=== PATIENT | female | born 1950 | race Caucasian/White ===

== ENCOUNTER 2016-12-09 07:32 | Day surgery (SDC) | payer OTHER, BC ==
[2016-12-08 10:55] VITALS: BMI 24.5
[~2016-12-09 07:32] MED LIST: ACETAMINOPHEN 325 MG TABLET (FP) PO PRN; CIPROFLOXACIN HCL 0.3% OPHTH 2.5ML BOTTLE OP SCH; CYCLOPENTOLATE HCL 1% OPHTH SOLN 2 ML BOTTLE OP SCH; FLURBIPROFEN 0.03% OPHTH SOLN 2.5 ML BOTTLE OP SCH; PHENYLEPHRINE 2.5% OPHTH SOLN 15 ML BOTTLE OP SCH; TROPICAMIDE 1% OPHTH SOLN 15 ML BOTTLE OP SCH
[2016-12-09] MEDS ORDERED: LIDOCAINE HCL 2% JELLY (5 ML/TUBE) ONE (07:36)
[2016-12-09] MEDS ORDERED: EPINEPHrine/PF 1 MG/1 ML (1:1,000) AMPULE ONE (07:36)
[2016-12-09] MEDS ORDERED: LIDOCAINE HCL/PF 1% SDV 5ML VIAL ONE (07:37)
[2016-12-09] MEDS ORDERED: PHENYLEPHRINE 2.5% OPHTH SOLN 15 ML BOTTLE ONE (07:51)
[2016-12-09] MEDS ORDERED: TROPICAMIDE 1% OPHTH SOLN 15 ML BOTTLE ONE (07:51)
[2016-12-09] MEDS ORDERED: CYCLOPENTOLATE HCL 1% OPHTH SOLN 2 ML BOTTLE ONE (07:51)
[2016-12-09] MEDS ORDERED: CIPROFLOXACIN 0.3% EYE DROPS 5 ML BOTTLE ONE (07:51)
[2016-12-09 08:02] VITALS: TEMP 98.1
[2016-12-09] MEDS ORDERED: PHENYLEPHRINE 2.5% OPHTH SOLN 15 ML BOTTLE OD ONE ×3 (08:05→08:15)
[2016-12-09] MEDS ORDERED: CYCLOPENTOLATE HCL 1% OPHTH SOLN 2 ML BOTTLE OD ONE ×3 (08:05→08:15)
[2016-12-09] MEDS ORDERED: TROPICAMIDE 1% OPHTH SOLN 15 ML BOTTLE OD ONE ×3 (08:05→08:15)
[2016-12-09] MEDS ORDERED: CIPROFLOXACIN HCL 0.3% OPHTH 2.5ML BOTTLE OD ONE ×2 (08:05→08:15)
[2016-12-09] MEDS ORDERED: CIPROFLOXACIN 0.3% EYE DROPS 5 ML BOTTLE OD ONE (08:10)
[2016-12-09] MEDS ORDERED: LIDOCAINE HCL 2% JELLY (5 ML/TUBE) TP ONE (08:52)
[2016-12-09] MEDS ORDERED: MIDAZOLAM HCL 2 MG/2 ML SINGLE DOSE VIAL ONE (09:15)
[2016-12-09] MEDS ORDERED: POVIDONE-IODINE 5% OPHTHALMIC PREP 30 ML SOLUTION OD ONE (09:17)
[2016-12-09] MEDS ORDERED: LIDOCAINE HCL 1% PRESERVATIVE FREE - 30ML VIAL IO ONE (09:25)
[2016-12-09] MEDS ORDERED: BSS (NA/CA/MG/K) BALANCED SALT SOLUTION OPHTH SOLN 15 ML BOTTLE OD ONE (09:25)
[2016-12-09] MEDS ORDERED: CHONDROITIN SU A/HYALUR SOD 1 KIT IO ONE (09:25)
[2016-12-09] MEDS ORDERED: EPINEPHrine/PF 1 MG/1 ML (1:1,000) AMPULE IO ONE (09:34)
[2016-12-09] MEDS ORDERED: ACETAMINOPHEN 325 MG TABLET (FP) PO ONE (10:05)
[2016-12-09] MEDS ORDERED: ACETAMINOPHEN 325 MG TABLET (FP) ONE (10:08)
--- NOTE | 2016-12-09 10:47 | SPEC ---
DATE OF OPERATION: 12/09/2016 PREOPERATIVE DIAGNOSIS: Cataract, right eye. POSTOPERATIVE DIAGNOSIS: Cataract, right eye. OPERATION: Phacoemulsification of right cataract with posterior chamber intraocular lens implantation. The lens used [id number], 22.0 diopter power, serial No. [id number]. SURGEON: Franklin Oliva M.D. ANESTHESIA: Topical MAC. COMPLICATIONS: None. PROCEDURE: The patient was brought to the operating room and correctly identified along with the operative site and the correct intraocular lens murphy. The patient was then prepped and draped in the usual sterile fashion including 5% Betadine solution in the conjunctival sac and an eyelid drape. An eyelid speculum was then placed in the eye. A paracentesis port was created and approximately 0.5 mL of preservative free Lidocaine was then injected into the eye. Viscoelastic was then injected to inflate the anterior chamber. A temporal clear corneal wound was created. A continuous circular capsulorrhexis was performed. The nucleus was then hydro-dissected with BSS and removed with phacoemulsification. The remaining cortical material was irrigated and aspirated. Viscoelastic was injected to inflate the capsular bag and the intraocular lens was then implanted into the capsular bag. The remaining Viscoelastic was irrigated and aspirated from the eye. The IOL was noted to be well centered and completely covered by the anterior capsulorrhexis. Topical Vancomycin was placed and the eye patched and shielded. The patient was then discharged from the operating room in stable condition. All wounds were tested and found to be watertight. No suture was placed. The eye was then shielded. The patient was then discharged from the operating room in stable condition. FRANKLIN OLIVA M.D. /[id number]
[2016-12-09 10:58] VITALS: BP 118/57; PULSE 65
== END 2016-12-09 11:26 | disposition home or self-care (01) ==
LOC: JASU-SURG 07:32
PROVIDERS: ATTEND Ophthalmology
PROC: 08RJ3JZ Replacement of Right Lens with Synthetic Substitute, Percutaneous Approach (ICD-10-PCS; principal; 2016-12-09 09:00)
DX: H26.9 Unspecified cataract (principal)

== ENCOUNTER 2017-02-17 07:28 | Day surgery (SDC) | payer OTHER, BC ==
[2017-02-15 16:14] VITALS: BMI 24.5
[~2017-02-17 07:28] MED LIST changes: -CIPROFLOXACIN HCL 0.3% OPHTH 2.5ML BOTTLE OP SCH; -CYCLOPENTOLATE HCL 1% OPHTH SOLN 2 ML BOTTLE OP SCH; -FLURBIPROFEN 0.03% OPHTH SOLN 2.5 ML BOTTLE OP SCH; -PHENYLEPHRINE 2.5% OPHTH SOLN 15 ML BOTTLE OP SCH; -TROPICAMIDE 1% OPHTH SOLN 15 ML BOTTLE OP SCH
[2017-02-17] MEDS ORDERED: LIDOCAINE HCL/PF 1% SDV 5ML VIAL ONE (07:37)
[2017-02-17] MEDS ORDERED: EPINEPHrine/PF 1 MG/1 ML (1:1,000) AMPULE ONE (07:37)
[2017-02-17] MEDS ORDERED: TETRACAINE 0.5% OPHTH SOLN 2 ML BOTTLE ONE (07:37)
[2017-02-17] MEDS ORDERED: BSS (NA/CA/MG/K) BALANCED SALT SOLUTION OPHTH SOLN 15 ML BOTTLE ONE (07:37)
[2017-02-17] MEDS ORDERED: FLURBIPROFEN 0.03% OPHTH SOLN 2.5 ML BOTTLE ONE (07:46)
[2017-02-17] MEDS ORDERED: TROPICAMIDE 1% OPHTH SOLN 15 ML BOTTLE ONE (07:46)
[2017-02-17] MEDS ORDERED: CIPROFLOXACIN 0.3% EYE DROPS 5 ML BOTTLE ONE (07:46)
[2017-02-17] MEDS ORDERED: CYCLOPENTOLATE HCL 1% OPHTH SOLN 2 ML BOTTLE ONE (07:46)
[2017-02-17] MEDS ORDERED: PHENYLEPHRINE 2.5% OPHTH SOLN 15 ML BOTTLE ONE (07:46)
[2017-02-17] MEDS: FLURBIPROFEN 0.03% OPHTH SOLN 2.5 ML BOTTLE OP SCH ×3 (08:10→08:20)
[2017-02-17] MEDS: TROPICAMIDE 1% OPHTH SOLN 15 ML BOTTLE OP SCH ×3 (08:10→08:20)
[2017-02-17] MEDS: CYCLOPENTOLATE HCL 1% OPHTH SOLN 2 ML BOTTLE OP SCH ×3 (08:10→08:20)
[2017-02-17] MEDS: PHENYLEPHRINE 2.5% OPHTH SOLN 15 ML BOTTLE OP SCH ×3 (08:10→08:20)
[2017-02-17] MEDS: CIPROFLOXACIN HCL 0.3% OPHTH 2.5ML BOTTLE OP SCH ×3 (08:10→08:20)
[2017-02-17] MEDS ORDERED: MIDAZOLAM HCL 2 MG/2 ML SINGLE DOSE VIAL ONE (09:02)
[2017-02-17] MEDS ORDERED: TETRACAINE 0.5% OPHTH SOLN 2 ML BOTTLE OS ONE (09:07)
[2017-02-17] MEDS ORDERED: POVIDONE-IODINE 5% OPHTHALMIC PREP 30 ML SOLUTION OS ONE (09:09)
[2017-02-17] MEDS ORDERED: LIDOCAINE HCL 1% PRESERVATIVE FREE - 30ML VIAL IO ONE (09:14)
[2017-02-17] MEDS ORDERED: BSS (NA/CA/MG/K) BALANCED SALT SOLUTION OPHTH SOLN 15 ML BOTTLE OS ONE (09:14)
[2017-02-17] MEDS ORDERED: CHONDROITIN SU A/HYALUR SOD 1 KIT IO ONE (09:14)
[2017-02-17] MEDS ORDERED: EPINEPHrine/PF 1 MG/1 ML (1:1,000) AMPULE IO ONE (09:20)
[2017-02-17 10:33] VITALS: TEMP 97.8
[2017-02-17 10:34] VITALS: BP 149/88; PULSE 74
--- NOTE | 2017-02-18 08:59 | SPEC ---
DATE OF OPERATION: 02/17/2017 OPERATION: Phacoemulsification with posterior chamber intraocular lens implantation, left eye. Lens used [id number], 21.5 Diopter power, Serial No. [id number]. PREOPERATIVE DIAGNOSIS: Cataract, left eye. POSTOPERATIVE DIAGNOSIS: Cataract, left eye. SURGEON: Franklin Oliva M.D. ANESTHESIA: Topical MAC. COMPLICATIONS: None. PROCEDURE: The patient was brought to the operating room and correctly identified along with the operative site and the correct intraocular lens murphy. The patient was then prepped and draped in the usual sterile fashion including 5% Betadine solution in the conjunctival sac and an eyelid drape. An eyelid speculum was then placed in the eye. A paracentesis port was created and approximately 0.5 mL of preservative free Lidocaine was then injected into the eye. Viscoelastic was then injected to inflate the anterior chamber. A temporal clear corneal wound was created. A continuous circular capsulorrhexis was performed. The nucleus was then hydrodissected with BSS and removed with phacoemulsification. The remaining cortical material was irrigated and aspirated. Viscoelastic was injected to inflate the capsular bag and the intraocular lens was then implanted into the capsular bag. The remaining Viscoelastic was irrigated and aspirated from the eye. The IOL was noted to be well centered and completely covered by the anterior capsulorrhexis. Topical vancomycin was placed and the eye patched and shielded. All wounds were tested and found to be watertight. No suture was placed. The eye was then shielded. The patient was then discharged from the operating room in stable condition. FRANKLIN OLIVA M.D. HL/[id number]
== END 2017-02-17 10:25 | disposition home or self-care (01) ==
LOC: JASU-SURG 07:28
PROVIDERS: ATTEND Ophthalmology
PROC: 08RK3JZ Replacement of Left Lens with Synthetic Substitute, Percutaneous Approach (ICD-10-PCS; principal; 2017-02-17 09:00)
DX: H26.9 Unspecified cataract (principal)

== ENCOUNTER 2017-02-18 22:17 | Inpatient (IN) | payer OTHER, BC ==
--- NOTE | 2017-02-18 22:45 | PDOC ---
History of Present Illness - General Chief Complaint: Shortness of Breath Stated Complaint: SHORTNESS OF BREATH Time Seen by Provider: 02/18/17 22:44 - History of Present Illness Initial Comments: 02/19/17 01:29 66yo woman with PMH of COPD, CAD s/p 1 stent in 2007, PVD, HLD, HTN who presents with worsening sob at rest for the past 2 days in the setting of tapering her steroids. Patient reports feeling short of breath at rest and having two "breathing attacks" yesterday and one today, which describes as fast breathing and gasping for air. She used her "rescue inhaler" with no improvement. She reports being sick for the past 3 months, and approximately 1 month ago completed a course of antibiotics, but can not recall the name. Dr. Smith is her Rn Case Management, who started her on a steroid taper by 5mg q 3days ( initial dose 40mg, today she is day 2 of 3 on 25mg prednisone). Patient reports persistent chronic productive cough with dark colored sputum. Denies chest pain , chest pressure, and palpitations. No fever, chills, dysuria, or abdominal pain. Allergies: NKDA PCP: Dr. Sandoval Pulm: Dr. Smith 02/19/17 02:44 Past History - Past Medical History Allergies/Adverse Reactions: Allergies Allergy/AdvReac Type Severity Reaction Status Date / Time No Known Allergies Allergy Verified 02/15/17 16:15 Home Medications: Ambulatory Orders Albuterol Sulfate 0.5% [Ventolin 0.5% Nebulizing Soln. -] 1 neb NEB Q4H PRN 09/16 Alendronate Na [Fosamax (Weekly)] 70 mg PO DIALLO 04/14/11 Aspirin [Baby Aspirin] 81 mg PO DAILY 04/14/11 Multivitamins [Multivit ([facility] Formulary)] 1 each PO DAILY 04/14/11 Potassium Chloride [K-Dur] 10 meq PO DAILY 04/14/11 Verapamil HCl [Verelan (Do Not Stock)] 360 mg PO DAILY 04/14/11 Simvastatin [Zocor -] 40 mg PO HS 03/21/14 Metoprolol Tartrate [Lopressor -] 25 mg PO BID 03/22/14 Clopidogrel Bisulfate [Plavix -] 75 mg PO DAILY 04/04/14 Gabapentin 600 mg PO QID 04/04/14 Prednisone 10 mg PO DAILY 02/15/17 Another Inhaler-Not Sure Of Name DAILY 02/17/17 Anemia: No Asthma: No Cancer: No Cardiac Disorders: Yes (mi'08 STENT) CVA: No COPD: Yes Dementia: No Diabetes: No GI Disorders: Yes (REFLUX) Disorders: No HTN: Yes Hypercholesterolemia: Yes Liver Disease: No Seizures: No Thyroid Disease: No - Surgical History Cardiac Surgery: (STENT 2007) Orthopedic Surgery: Yes (LEFT TKR ~2009) - Suicide/Smoking/Psychosocial Hx Smoking History: Current some day smoker Have you smoked in the past 12 months: Yes Number of Cigarettes Smoked Daily: 2 'Breaking Loose' booklet given: 12/09/16 Hx Alcohol Use: No Drug/Substance Use Hx: No Substance Use Type: None Hx Substance Use Treatment: No Review of Systems - Review of Systems Constitutional: Yes: Chills, Diaphoresis, Weakness HEENTM: Yes: Cataracts (cataract surgergy yesterday). No: Throat Pain Respiratory: Yes: Cough, Shortness of Breath, SOB at Rest, Productive cough. No : Hemoptysis Cardiac (ROS): No: Edema, Lightheadedness, Palpitations, Syncope ABD/GI: No: Diarrhea : No: Dysuria Neurological: No: Headache *Physical Exam - Physical Exam General Appearance: Yes: Nourished, Appropriately Dressed, Mild Distress, Other (dyspneic when speaking) HEENT: positive: EOMI Neck: positive: Supple Respiratory/Chest: positive: Decreased Breath Sounds, Rhonchi (scattered rhonchi ) Cardiovascular: positive: Regular Rhythm, Regular Rate, S1, S2. negative: JVD Vascular Pulses: Dorsalis-Pedis (R): 2+, Doralis-Pedis (L): 2+ Gastrointestinal/Abdominal: positive: Normal Bowel Sounds, Flat, Soft. negative : Tender, Distended, Guarding Extremity: negative: Pedal Edema, Calf Tenderness Integumentary: positive: Other (bilateral venous stasis changes) Neurologic: positive: Fully Oriented, Alert Heart Score/ECG Review - ECG Impressions Comment:: 02/19/17 02:48 Sinus rhythm, rate 79bpm, with PACs LAE LBBB QTc 502 no ischemic changes ED Treatment Course - LABORATORY CBC & Chemistry Diagram: 02/19/17 00:19 02/19/17 00:19 Medical Decision Making - Medical Decision Making 02/19/17 01:41 66yo woman with PMH of COPD, CAD s/p 1 stent, HTN, HLD, PVD who presents with dyspnea at rest in the setting of steroid taper and recent illness. Differential includes, but not limited to COPD exacerbation, PNA, URI. -CBC, CMP, ABG -Mg, 2xDuo nebs, Solumedrol 125mg -CXR PA/Lateral 02/19/17 01:53 CBC, BMP 02/19/17 00:19 02/19/17 00:19 Hepatic Panel Total Bilirubin 1.0 mg/dL (0.2-1.0) D 02/19/17 00:19 AST 34 U/L (15-37) D 02/19/17 00:19 ALT 21 U/L (12-78) D 02/19/17 00:19 Alkaline Phosphatase 63 U/L (45-117) D 02/19/17 00:19 Albumin 3.1 g/dl (3.4-5.0) L 02/19/17 00:19 Patient's breathing is not improved after treatments. She remains dyspneic on 2L NC when speaking, and lung exam notable for decreased airway entry. Patient's WBC mildly elevated which could be due to steroids and/or underlying infection. Patient is afebrile, and CXR does not show any focal consolidations. Will hold off on antibiotics for now. Patient will be admitted for further treatment. *DC/Admit/Observation/Transfer Diagnosis at time of Disposition: COPD exacerbation - Discharge Dispostion Condition at time of disposition: Stable Admit: Yes - Referrals - Patient Instructions - Post Discharge Activity
--- NOTE | 2017-02-19 | PDOC ---
Attending Attestation - Resident Resident Name: Connie Armstrong - ED Attending Attestation I have performed the following: I have examined & evaluated the patient, The case was reviewed & discussed with the resident, I agree w/resident's findings & plan, Exceptions are as noted - HPI HPI: 02/19/17 00:09 Pt with h/o COPD presents with SOB and productive cough for two days. Pt had been on a steroid taper and gradually started to develope the cough. Denies fever or chest pain. Denies sick contacts - Physicial Exam PE: 02/19/17 00:11 *Physical Exam General Appearance: Yes: Appropriately Dressed. No: Apparent Distress, Intoxicated HEENT: positive: EOMI, NAHOMI, Normal ENT Inspection, Normal Voice, TMs Normal, Pharynx Normal. negative: Pale Conjunctivae, Photophobia, Scleral Icterus (R), Scleral Icterus (L) Neck: positive: Trachea midline, Normal Thyroid, Supple. negative: Tender, Rigid, Carotid bruit, Stridor, Lymphadenopathy (R), Lymphadenopathy (L), Thyromegaly Respiratory/Chest: positive: decrease BS bilaterally, occasional scattered wheeze, moderate conversational dyspnea, slight labored breathing . negative: Chest Tender, Respiratory Distress, Accessory Muscle Use, , RES, Crackles, Rales , Rhonchi, Stridor, Dullness Cardiovascular: positive: Regular Rhythm, Regular Rate, S1, S2. negative: Edema , JVD, Murmur, Bradycardia, Tachycardia Vascular Pulses: Dorsalis-Pedis (R): 2+, Doralis-Pedis (L): 2+ Gastrointestinal/Abdominal: positive: Normal Bowel Sounds, Flat, Soft. negative : Tender, Organomegaly, Pulsatile Mass, Increased Bowel Sounds, Decreased BS, Distended, Guarding, Rebound, Hernia, Hepatomegaly, Spleenomegaly Lymphatic: negative: Adenopathy, Tenderness Musculoskeletal: positive: Normal Inspection. negative: CVA Tenderness, Decreased Range of Motion Extremity: positive: Normal Capillary Refill, Normal Inspection, Normal Range of Motion, Pelvis Stable. negative: Tender, Pedal Edema, Swelling, Erythema Integumentary: positive: Normal Color, Dry, Warm. negative: Cyanotic, Erythema , Jaundice, Rash Neurologic: positive: machine baster II-XII NML intact, Fully Oriented, Alert, Normal Mood/ Affect, Motor Strength 5/5. negative: EOM Palsy, Facial Droop, Sensory Deficit 02/19/17 01:31 - Medical Decision Making 02/19/17 01:34 Pt will be admitted for further treatment
[2017-02-19] MEDS ORDERED: MAGNESIUM SULF 50% (8.12 MEQ/2 ML-1 GM VIAL) IVPB ONE (00:01)
[2017-02-19] MEDS ORDERED: ALBUTEROL SO4 2.5/IPRATROPIUM 0.5 INH SOL 3 ML VIAL.NEB. NEB ONE ×2 (00:01→00:20)
[2017-02-19] MEDS ORDERED: MAGNESIUM SULF 50% (8.12 MEQ/2 ML-1 GM VIAL) ONE (00:20)
[2017-02-19 00:33] LABS: BASO % 0.5 % (0-2.0); EOS % 0.4 % (0-4.5); HEMATOCRIT 41.3 % (32.4-45.2); HEMOGLOBIN 13.9 GM/dL (10.7-15.3); LYMPH % 10.6 % (8-40); MCH 35.6 pg (25.7-33.7); MCHC 33.6 g/dl (32.0-36.0); MEAN CELL VOLUME 105.8 fl (80-96); MEAN PLT VOLUME 9.4 fl (7.5-11.1); MONO % 6.7 % (3.8-10.2); NEUT % 81.8 % (42.8-82.8); PLATELET COUNT 215 K/MM3 (134-434); RDW 15.6 % (11.6-15.6); WHITE BLOOD COUNT 13.6 K/mm3 (4.0-10.0)
[2017-02-19 00:36] LABS: ADD RBC MORPHOLOGY YES
[2017-02-19 00:57] LABS: ALBUMIN 3.1 g/dl (3.4-5.0); ANION GAP 10 (8-16); BLOOD UREA NITROGEN 15 mg/dL (7-18); CALCIUM 8.3 mg/dL (8.5-10.1); CHLORIDE 100 mmol/L (98-107); CO2 28 mmol/L (21-32); CREATININE 0.5 mg/dL (0.55-1.02); GLUCOSE,RANDOM 108 mg/dL (74-106); SGPT/ALT 21 U/L (12-78); SODIUM 138 mmol/L (136-145)
[2017-02-19 01:00] LABS: ALK PHOS 63 U/L (45-117); TOT PROT 6.1 g/dl (6.4-8.2)
[2017-02-19 01:01] LABS: POTASSIUM 4.6 mmol/L (3.5-5.1); SGOT/AST 34 U/L (15-37)
[2017-02-19] MEDS ORDERED: methylPREDNISolone NA SUCC 125 MG/2 ML VIAL IVPB ONE (01:27)
[2017-02-19] MEDS ORDERED: methylPREDNISolone NA SUCC 125 MG/2 ML VIAL ONE (01:37)
--- NOTE | 2017-02-19 02:40 | HP ---
<Dat Casey - Last Filed: 02/19/17 04:07> CHIEF COMPLAINT: SOB PCP: Dr. Hdez HISTORY OF PRESENT ILLNESS: Patient is a 66 yo F with a PMHx, of COPD, PVD, CAD (stent in 2007), HLD, HTN, who presented today with worsening SOB that started yesterday. She had multiple breathing attacks yesterday and 1 today and decided to go to ED. The first attack started before she had her cataract surgery prior to anesthesia. She says she has been sick for 3 months and completed a course of antibiotics 1 month ago but does not remember the name. 3 weeks ago she was started on Predisone and currently being tapered down. She is currently day 2 of 3 of 25mg. Patient states she has a persistent productive cough with yellow sputum but today she noticed it was chris in color. She also stated she also has chest pressure since the SOB started. Patient denies dizziness, chest pain, nausea, vomiting, lightheadedness, palpitations, abdominal pain, urinary symptoms. ER course was notable for: (1) RR 26, O2 Sat 93 (2) Magnesium, Duonebs, 125mg Solu-Medrol Recent Travel: N/A PAST MEDICAL HISTORY: L knee replacement (around 10 years ago), L cataract surgery (02/21) PAST SURGICAL HISTORY: s/p left cataract surgery Social History: Smokin/2 pack a day Alcohol: denies Drugs: denies Family History: Allergies No Known Allergies Allergy (Verified 02/15/17 16:15) HOME MEDICATIONS: Home Medications Medication Instructions Recorded Albuterol Sulfate 0.5% [Ventolin 1 neb NEB Q4H PRN 04/14/11 0.5% Nebulizing Soln. -] Alendronate Na [Fosamax (Weekly)] 70 mg PO DIALLO 04/14/11 Aspirin [Baby Aspirin] 81 mg PO DAILY 04/14/11 Multivitamins [Multivit ([facility] 1 each PO DAILY 04/14/11 Formulary)] Potassium Chloride [K-Dur] 10 meq PO DAILY 04/14/11 Verapamil HCl [Verelan (Do Not 360 mg PO DAILY 04/14/11 Stock)] Simvastatin [Zocor -] 40 mg PO HS 03/21/14 Metoprolol Tartrate [Lopressor -] 25 mg PO BID 03/22/14 Clopidogrel Bisulfate [Plavix -] 75 mg PO DAILY 04/04/14 Gabapentin 600 mg PO QID 04/04/14 Prednisone 10 mg PO DAILY 02/15/17 Another Inhaler-Not Sure Of Name DAILY 02/17/17 REVIEW OF SYSTEMS CONSTITUTIONAL: Absent: fever, chills, diaphoresis, generalized weakness, malaise, loss of appetite, weight change HEENT: Absent: rhinorrhea, nasal congestion, throat pain, throat swelling, difficulty swallowing, mouth swelling, ear pain, eye pain, visual changes CARDIOVASCULAR: peripheral edema Absent: chest pain, syncope, palpitations, irregular heart rate, lightheadedness RESPIRATORY: cough, SOB, orthopnea, wheezing Absent: dyspnea with exertion,wheezing, stridor, hemoptysis GASTROINTESTINAL: Absent: abdominal pain, abdominal distension, nausea, vomiting, diarrhea, constipation, melena, hematochezia GENITOURINARY: Absent: dysuria, frequency, urgency, hesitancy, hematuria, flank pain, genital pain MUSCULOSKELETAL: Absent: myalgia, arthralgia, joint swelling, back pain, neck pain SKIN: Absent: rash, itching, pallor HEMATOLOGIC/IMMUNOLOGIC: Absent: easy bleeding, easy bruising, lymphadenopathy, frequent infections ENDOCRINE: Absent: unexplained weight gain, unexplained weight loss, heat intolerance, cold intolerance NEUROLOGIC: Absent: headache, focal weakness or paresthesias, dizziness, unsteady gait, seizure, mental status changes, bladder or bowel incontinence PSYCHIATRIC: Absent: anxiety, depression, suicidal or homicidal ideation, hallucinations. PHYSICAL EXAMINATION Vital Signs - 24 hr 02/18/17 02/18/17 22:25 23:10 Temperature 98.3 F Pulse Rate 98 H Respiratory 26 H Rate Blood Pressure 151/95 O2 Sat by Pulse 93 L 95 Oximetry (%) GENERAL: dypneic , tachypneic, Awake, alert, and fully oriented HEAD: Normal with no signs of trauma. EYES: Mild proptosis, extraocular movements intact, sclera anicteric, conjunctiva clear EARS, NOSE, THROAT: oropharynx clear without exudates. Moist mucous membranes. NECK: supple without lymphadenopathy, JVD, or masses. LUNGS: scattered rhonchi, no wheezing HEART: Regular rate and rhythm, no murmurs appreciated ABDOMEN: Soft, nontender, not distended, normoactive bowel sounds UPPER EXTREMITIES: 2+ pulses, warm, well-perfused. No cyanosis. No clubbing. No peripheral edema. LOWER EXTREMITIES: 2+ pulses R DP, Faint pulses left DP. no peripheral edema PSYCHIATRIC: Cooperative. Good eye contact. Appropriate mood and affect. Laboratory Results - last 24 hr 02/19/17 02/19/17 00:19 00:19 WBC 13.6 H D RBC 3.90 D Hgb 13.9 D Hct 41.3 D MCV 105.8 H MCH 35.6 H MCHC 33.6 RDW 15.6 Plt Count 215 MPV 9.4 Neutrophils % 81.8 D Lymphocytes % 10.6 Monocytes % 6.7 Eosinophils % 0.4 D Basophils % 0.5 Sodium 138 Potassium 4.6 Chloride 100 Carbon Dioxide 28 Anion Gap 10 BUN 15 D Creatinine 0.5 L Creat Clearance w eGFR > 60 Random Glucose 108 H D Calcium 8.3 L Total Bilirubin 1.0 D AST 34 D ALT 21 D Alkaline Phosphatase 63 D Total Protein 6.1 L Albumin 3.1 L ASSESSMENT/PLAN: Patient is a 66 yo F with a PMHx, of COPD, PVD, CAD (stent in 2007), HLD, HTN, who presented with worsening SOB and is found to have COPD exacerbation. #Acute COPD Exacerbation -Duonebs Q6H prn -Albuterol Q4H PRN -Pulm Consulted Dr. Smith -O2 Therapy, keep spo2>88. on oxygen 3L with 93% spo2 -SoluMedrol 40mg IV TID, taper -Symbicort 2 Puff BID -Azithromycin 500mg once -hold Prednisone -FU AM labs: CBC, CMP, Mag, Phos, cxr. -monitor vitals. #HTN/CAD/HLD -need to confirm confirm home meds -cont ASA 81mg -cont Atorvastatin 40mg PO daily - monitor vitals #FEN -No IV fluids -WNL, repeat in am -Sodium restricted diet #PPX DVt pro:Heparin SQ TID Gi pro: zantac 150mg bid. Dispo: Med-Surge Visit type - Emergency Visit Emergency Visit: Yes ED Registration Date: 02/19/17 Care time: The patient presented to the Emergency Department on the above date and was hospitalized for further evaluation of their emergent condition. - New Patient This patient is new to me today: Yes Date on this admission: 02/19/17 - Critical Care Critical Care patient: No <Blayne Ballard - Last Filed: 02/19/17 05:55> patient is seen and examined Agree with plan above. 66 year old female with history of COPD and recent exacerbation , treated with oral steroids , now presents with cough, SOB and wheezing . Her symptoms began 3 month ago and now progressed . She has been treated with oral antibiotics for upper respiratory infection . PMHx, of COPD, PVD, CAD (PCI in ), HLD, HTN LUNGS: scattered rhonchi, no wheezing HEART: Regular rate and rhythm, no murmurs appreciated ABDOMEN: Soft, nontender, not distended, CBC, BMP 02/19/17 00:19 02/19/17 00:19 No acute infiltrates on CXR A/P Acute COPD exacerbation with failure of management with outpatient oral steroids - IV steroids with slow taper over 48- 72 hrs - nebs -pulmonary evaluation
[2017-02-19] MEDS ORDERED: ALBUTEROL SO4 0.083% IH SOL 2.5 MG/3 ML VIAL.NEB. NEB PRN (02:45)
[2017-02-19] MEDS ORDERED: AZITHROMYCIN IVPB 500 MG in DEXTROSE 5%-WATER - 250 ML IVPB ONE (02:49)
[2017-02-19] MEDS ORDERED: ALBUTEROL SO4 0.5 % INH SOLN 2.5 MG/0.5 ML VIAL.NEB. NEB PRN ×2 (02:58→15:44)
--- NOTE | 2017-02-19 03:00 | MSN ---
Admitting History and Physical - Admission Chief Complaint: Dyspnea History of Present Illness: Sammi Liu is a 66 year old female with PMHx of COPD (not on home O2), CAD (s /p 1 stent in 2007), PVD (s/p 3 stents), HTN, HLD, who presents with dyspnea that began yesterday morning. Patient states she initially felt dyspneic yesterday when she was at the hospital for left cataract surgery. Patient states that she had another episode of dyspnea today afternoon when she was walking to her house from her car. Patient states she has been sick for the past 3 months with cold like symptoms. She states she has been on 2 weeks of prednisone taper. Patient reports productive cough with yellow and chris colored phlegm. Patient also reports one episode of chest pressure earlier today. She states she's not sure how long it lasted but states it doesn't radiate anywhere. Patient also reports palpitations, nausea, headache, and dizziness. Patient denies vomiting, leg swelling, LOC, history of thyroid problems, history of anxiety. Patient states that at baseline, she ambulates with a cane at home and a walker outside. ED course was notable for: 1. T: 98F, BP: 151/95, RR; 26, O2 sat: 95% on 2L of O2 via nasal cannula 2. WBC: 13.6 History Source: Patient Limitations to Obtaining History: No Limitations - Past Medical History IT ADMIN: Yes: Peripheral Neuropathy Cardiovascular: Yes: CAD, HTN, Hyperlipdemia, Other (Cardiac stents placed, history of peripheral vascular disease) Pulmonary: Yes: COPD, Other (Former smoker) - Past Surgical History Past Surgical History: Yes: Joint Replacement (left knee), Stent - Smoking History Smoking history: Current some day smoker Have you smoked in the past 12 months: Yes Aproximately how many cigarettes per day: 2 - Alcohol/Substance Use Hx Alcohol Use: No Home Medications - Allergies Allergies/Adverse Reactions: Allergies Allergy/AdvReac Type Severity Reaction Status Date / Time No Known Allergies Allergy Verified 02/15/17 16:15 - Home Medications Home Medications: Ambulatory Orders Albuterol Sulfate 0.5% [Ventolin 0.5% Nebulizing Soln. -] 1 neb NEB Q4H PRN 09/16 Alendronate Na [Fosamax (Weekly)] 70 mg PO DIALLO 04/14/11 Aspirin [Baby Aspirin] 81 mg PO DAILY 04/14/11 Multivitamins [Multivit ([facility] Formulary)] 1 each PO DAILY 04/14/11 Potassium Chloride [K-Dur] 10 meq PO DAILY 04/14/11 Verapamil HCl [Verelan (Do Not Stock)] 360 mg PO DAILY 04/14/11 Simvastatin [Zocor -] 40 mg PO HS 03/21/14 Metoprolol Tartrate [Lopressor -] 25 mg PO BID 03/22/14 Clopidogrel Bisulfate [Plavix -] 75 mg PO DAILY 04/04/14 Gabapentin 600 mg PO QID 04/04/14 Prednisone 10 mg PO DAILY 02/15/17 Another Inhaler-Not Sure Of Name DAILY 02/17/17 Review of Systems - Review of Systems Constitutional: reports: No Symptoms Eyes: reports: No Symptoms HENT: reports: Nasal Congestion, Other (rhinorrhea) Neck: reports: No Symptoms Cardiovascular: reports: Palpitations, Other (Chest pressure) Respiratory: reports: Cough, Orthopnea, SOB Gastrointestinal: reports: Nausea Genitourinary: reports: No Symptoms Neurological: reports: Dizziness, Headache Physical Examination Vital Signs: Vital Signs Temperature 98.3 F 02/18/17 22:25 Pulse Rate 98 H 02/18/17 22:25 Respiratory Rate 26 H 02/18/17 22:25 Blood Pressure 151/95 02/18/17 22:25 O2 Sat by Pulse Oximetry (%) 95 02/18/17 23:10 Constitutional: Yes: Mild Distress, Other (Dyspneic while speaking) Eyes: Yes: Conjunctiva Clear, PERRL, Other (Mild proptosis noted) HENT: Yes: Atraumatic, Normocephalic Neck: Yes: Supple, Trachea Midline Cardiovascular: Yes: Tachycardia Respiratory: Yes: On Nasal O2 (On 2L of O2 via nasal cannula), Tachypnea, Other (Bibasilar crackles) Gastrointestinal: Yes: Normal Bowel Sounds, Soft Edema: No Peripheral Pulses: Left Radial: 2+, Right Radial: 2+, Left Doralis Pedis: 0 (I was not able to palpate L DP), Right Dorsalis Pedis: 1+ Neurological: Yes: Alert, Oriented Labs: CBC, BMP 02/19/17 00:19 02/19/17 00:19 Assessment/Plan Sammi Liu is a 66 yo F with PMHx of COPD (not on home O2), CAD (s/p 1 stent in 2007), PVD (s/p 3 stents), HTN, HLD, who presented with dyspnea. Patient was admitted for acute COPD exacerbation. 1. Acute COPD exacerbation - Hold Prednisone - DuoNebs Q6H PRN - Albuterol Q4H PRN - Solu-Medrol 40mg IVPUSH TID - Symbicort 2 puffs BID - Azithromycin 500mg once - O2 therapy - Pulm on board- Dr. Smith 2. CAD - Continue ASA 81 mg 3. HTN - Reconcile home medications 4. HLD - Continue Atorvastatin 40 mg 5. DVT Proph - Heparin SQ TID Dispo: Will admit to Med-Surg.
[2017-02-19] MEDS ORDERED: AZITHROMYCIN IVPB 250 ML IVPB ONE (03:01)
[2017-02-19 05:11] VITALS: BMI 27.8
[2017-02-19 05:57] LABS: ANISOCYTOSIS 1+; MACROCYTOSIS 1+
[2017-02-19] MEDS: ALBUTEROL SO4 2.5/IPRATROPIUM 0.5 INH SOL 3 ML VIAL.NEB. NEB SCH ×3 (06:15→17:16)
--- NOTE | 2017-02-19 08:16 | PN ---
Physical Exam: SUBJECTIVE: Patient seen and examined OBJECTIVE: Vital Signs Intake & Output 02/16/17 02/17/17 02/18/17 02/19/17 23:59 23:59 23:59 23:59 Output Total 200 Balance -200 Weight 63.503 kg 64.546 kg Period Temp Pulse Resp BP Sys/Olguin Pulse Ox Last 24 Hr 98.3 F-99 F 90-104 18-26 151-166/88-95 93-97 GENERAL: The patient is awake, alert, and fully oriented, in no acute distress. HEAD: Normal with no signs of trauma. EYES: PERRL, extraocular movements intact, sclera anicteric, conjunctiva clear. No ptosis. ENT: Ears normal, nares patent, oropharynx clear without exudates, moist mucous membranes. NECK: Trachea midline, full range of motion, supple. LUNGS: Breath sounds equal, clear to auscultation bilaterally, no wheezes, no crackles, no accessory muscle use. HEART: Regular rate and rhythm, S1, S2 without murmur, rub or gallop. ABDOMEN: Soft, nontender, nondistended, normoactive bowel sounds, no guarding, no rebound, no hepatosplenomegaly, no masses. EXTREMITIES: 2+ pulses, warm, well-perfused, no edema. NEUROLOGICAL: Cranial nerves II through XII grossly intact. Normal speech, gait not observed. PSYCH: Normal mood, normal affect. SKIN: Warm, dry, normal turgor, no rashes or lesions noted Laboratory Results - last 24 hr 02/19/17 02/19/17 00:19 00:19 WBC 13.6 H D RBC 3.90 D Hgb 13.9 D Hct 41.3 D MCV 105.8 H MCH 35.6 H MCHC 33.6 RDW 15.6 Plt Count 215 MPV 9.4 Neutrophils % 81.8 D Lymphocytes % 10.6 Monocytes % 6.7 Eosinophils % 0.4 D Basophils % 0.5 Poikilocytosis Few Anisocytosis 1+ Macrocytosis 1+ Sodium 138 Potassium 4.6 Chloride 100 Carbon Dioxide 28 Anion Gap 10 BUN 15 D Creatinine 0.5 L Creat Clearance w eGFR > 60 Random Glucose 108 H D Calcium 8.3 L Total Bilirubin 1.0 D AST 34 D ALT 21 D Alkaline Phosphatase 63 D Total Protein 6.1 L Albumin 3.1 L Active Medications Generic Name Dose Route Start Last Admin Trade Name Freq PRN Reason Stop Dose Admin Albuterol Sulfate 1 amp 02/19/17 02:58 Ventolin 0.5% - NEB Q4H PRN SHORT OF BREATH/WHEEZING Albuterol/Ipratropium 1 amp 02/19/17 06:00 02/19/17 06:15 Duoneb - NEB 1 amp QIDR JULIET Administration Aspirin 81 mg 02/19/17 10:00 Asa - PO DAILY JULIET Atorvastatin Calcium 20 mg 02/19/17 22:00 Lipitor - PO HS JULIET Budesonide/Formoterol Fumarate 2 puff 02/19/17 10:00 Symbicort 80/4.5mcg - IH BID JULIET Heparin Sodium (Porcine) 5,000 unit 02/19/17 06:00 Heparin - SQ TID JULIET Azithromycin 500 mg/ Dextrose 250 mls @ 250 mls/hr 02/20/17 10:00 IVPB DAILY [facility] Methylprednisolone Sodium Succinate 40 mg 02/19/17 10:00 Solu-Medrol - IVPUSH Q8H-IV JULIET Ranitidine HCl 150 mg 02/19/17 10:00 Zantac - PO BID JULIET No micro No ekg Imaging: Bibasilar atelectasis. Blunting of CP angles BL ASSESSMENT/PLAN:
[2017-02-19 08:37] LABS: BASO % 0.2 % (0-2.0); HEMOGLOBIN 14.1 GM/dL (10.7-15.3); LYMPH % 3.7 % (8-40); MCHC 32.7 g/dl (32.0-36.0); MEAN CELL VOLUME 106.9 fl (80-96); MEAN PLT VOLUME 9.7 fl (7.5-11.1); MONO % 0.9 % (3.8-10.2); NEUT % 95.2 % (42.8-82.8); PLATELET COUNT 223 K/MM3 (134-434); RBC 4.02 M/mm3 (3.60-5.2); RDW 15.9 % (11.6-15.6); WHITE BLOOD COUNT 12.6 K/mm3 (4.0-10.0)
[2017-02-19 08:46] LABS: ALBUMIN 3.5 g/dl (3.4-5.0); ANION GAP 12 (8-16); BLOOD UREA NITROGEN 14 mg/dL (7-18); CALCIUM 9.2 mg/dL (8.5-10.1); CHLORIDE 98 mmol/L (98-107); CO2 27 mmol/L (21-32); CREATININE 0.8 mg/dL (0.55-1.02); GLUCOSE,RANDOM 143 mg/dL (74-106); MAGNESIUM 2.3 mg/dL (1.8-2.4); PHOSPHOROUS 4.4 mg/dL (2.5-4.9); SGOT/AST 27 U/L (15-37); SGPT/ALT 21 U/L (12-78); SODIUM 137 mmol/L (136-145); TOT PROT 6.9 g/dl (6.4-8.2)
[2017-02-19 08:47] LABS: ALK PHOS 69 U/L (45-117)
[2017-02-19 08:49] LABS: ADD RBC MORPHOLOGY YES
[2017-02-19 08:52] LABS: INR 0.97 (0.82-1.09)
[2017-02-19] MEDS ORDERED: PT OWN MED DRAWER 7, Y5N ONE (09:08)
[2017-02-19] MEDS: ASPIRIN 81 MG CHEWABLE TABLETS PO SCH (09:10)
[2017-02-19] MEDS: RANITIDINE HCL 150 MG TABLET (FP) PO SCH ×2 (09:10→21:48)
[2017-02-19] MEDS: methylPREDNISolone NA SUCC 40 MG/1 ML VIAL IVPUSH SCH ×2 (09:10→17:54)
[2017-02-19] MEDS: BUDESONIDE/FORMETEROL FUMARATE 80/4.5 mcg INHALER IH SCH ×2 (09:44→22:46)
[2017-02-19 11:34] LABS: ANISOCYTOSIS 1+; MACROCYTOSIS 0; PLATELET ESTIMATE NORMAL
--- NOTE | 2017-02-19 11:44 | HOSP ---
Physical Examination Vital Signs: Vital Signs Temperature 98.7 F 02/19/17 10:00 Pulse Rate 106 H 02/19/17 10:00 Respiratory Rate 22 02/19/17 10:00 Blood Pressure 142/63 02/19/17 10:00 O2 Sat by Pulse Oximetry (%) 97 02/19/17 03:30 Findings/Remarks: Subjective: The patient was seen and examined at the bedside, she reports her breathing has improved since yesterday. Current Medications Generic Name Dose Route Start Last Admin Trade Name Freq PRN Reason Stop Dose Admin Albuterol Sulfate 1 amp 02/19/17 02:58 Ventolin 0.5% - NEB Q4H PRN SHORT OF BREATH/WHEEZING Albuterol/Ipratropium 1 amp 02/19/17 06:00 02/19/17 06:15 Duoneb - NEB 1 amp QIDR JULIET Administration Aspirin 81 mg 02/19/17 10:00 02/19/17 09:10 Asa - PO 81 mg DAILY JULIET Administration Atorvastatin Calcium 20 mg 02/19/17 22:00 Lipitor - PO HS JULIET Budesonide/Formoterol Fumarate 2 puff 02/19/17 10:00 02/19/17 09:44 Symbicort 80/4.5mcg - IH Not Given BID JULIET Heparin Sodium (Porcine) 5,000 unit 02/19/17 06:00 Heparin - SQ TID JULIET Azithromycin 500 mg/ Dextrose 250 mls @ 250 mls/hr 02/20/17 10:00 IVPB DAILY JULIET Methylprednisolone Sodium Succinate 40 mg 02/19/17 10:00 02/19/17 09:10 Solu-Medrol - IVPUSH 40 mg Q8H-IV JULIET Administration Ranitidine HCl 150 mg 02/19/17 10:00 02/19/17 09:10 Zantac - PO 150 mg BID JULIET Administration Objective: Vital Signs Period Temp Pulse Resp BP Sys/Olguin Pulse Ox Last 24 Hr 98.3 F-99 F 90-106 18-26 142-166/63-95 93-97 Physical Exam: General: NAD, A&Ox3 Lungs: Decreased breath sounds bilaterally Heart: Tachycardia, S1S2 Abd: Soft, non-tender, non-distended. Normoactive bowel sounds Ext: Warm, well-perfused. 2+ DP/PT bilaterally CBCD WBC 12.6 K/mm3 (4.0-10.0) H 02/19/17 07:00 RBC 4.02 M/mm3 (3.60-5.2) 02/19/17 07:00 Hgb 14.1 GM/dL (10.7-15.3) 02/19/17 07:00 Hct 43.0 % (32.4-45.2) 02/19/17 07:00 MCV 106.9 fl (80-96) H 02/19/17 07:00 MCHC 32.7 g/dl (32.0-36.0) 02/19/17 07:00 RDW 15.9 % (11.6-15.6) H 02/19/17 07:00 Plt Count 223 K/MM3 (134-434) 02/19/17 07:00 MPV 9.7 fl (7.5-11.1) 02/19/17 07:00 CMP Sodium 137 mmol/L (136-145) 02/19/17 07:00 Potassium 4.0 mmol/L (3.5-5.1) 02/19/17 07:00 Chloride 98 mmol/L (98-107) 02/19/17 07:00 Carbon Dioxide 27 mmol/L (21-32) 02/19/17 07:00 Anion Gap 12 (8-16) 02/19/17 07:00 BUN 14 mg/dL (7-18) 02/19/17 07:00 Creatinine 0.8 mg/dL (0.55-1.02) D 02/19/17 07:00 Creat Clearance w eGFR > 60 (>60) 02/19/17 07:00 Random Glucose 143 mg/dL (74-106) H D 02/19/17 07:00 Calcium 9.2 mg/dL (8.5-10.1) 02/19/17 07:00 Total Bilirubin 1.0 mg/dL (0.2-1.0) 02/19/17 07:00 AST 27 U/L (15-37) D 02/19/17 07:00 ALT 21 U/L (12-78) 02/19/17 07:00 Alkaline Phosphatase 69 U/L (45-117) 02/19/17 07:00 Total Protein 6.9 g/dl (6.4-8.2) 02/19/17 07:00 Albumin 3.5 g/dl (3.4-5.0) 02/19/17 07:00 Assessment: This is a 66 year old female with PMHx of COPD, PVD, CAD (stent in 2007), HLD, HTN, who presented to the ED with worsening shortness of breath that began the day before coming to the ED. Plan: 1) Pulmonary: Acute COPD exacerbation - Continue Solu-medrol - Continue Duonebs - Continue Symbicort - O2 via NC prn - Continue Azithromycin - Appreciate pulmonary consult 2) Cardiology: HTN - Awaiting home medication list to verify the patient is indeed taking a bblocker at home Hyperlipidemia - Continue lipitor CAD s/p stenting 2007 - Continue ASA 3) F/E/N: - Sodium controlled diet - Monitor electrolytes 4) Prophylaxis: - OOB ambulating - Heparin 5,000u sq tid 5) Dispo: - Requires continued inpatient care CODE STATUS: FULL CODE Labs: CBC, BMP 02/19/17 07:00 02/19/17 07:00
--- NOTE | 2017-02-19 12:22 | CONSULT ---
Consultation: REQUESTING PROVIDER: CONSULT REQUEST: We have been asked to medically evaluate this patient for COPD exacerbation. HISTORY OF PRESENT ILLNESS: 66F w/ hx of COPD (not on home O2, never been hospitalized for exacerbation), PVD (b/l leg stents), CAD (stent in ), HLD, and HTN who presents with 1 day of SOB. Per pt, she developed a productive cough of thick yellow sputum in 2016. She was treated with antibiotics for a sinus infection one month ago. She was started on a prednisone taper by Dr. Smith 3 weeks ago, currently on day 2 of 3 on 25mg. Pt states that she developed a "breathing attack" one day ago on the way to the hospital for a cataract surgery. She states that it lasted for 15 minutes, and she was extremely SOB, and thought she was going to . The SOB was accompanied by chest pressure, palpitations, and wheezing. It came on spontaneously and resolved spontaneously. She denies ever having anything like this before. Then, she underwent the surgery, and had 2 more similar breathing attacks afterwards, each one worse than the prior in severity and duration, prompting her to come to the ED. Pt also endorses nausea and orthopnea, and she denies PND and LE edema. She denies a history of anxiety, and she denied feeling anxious before the episodes started. PMH: COPD (not on home O2, never been hospitalized for exacerbation), PVD (b/l leg stents), CAD (stent in ), HLD, and HTN PSH: L knee repair, L cataract surgery Allergies: NKDA Social Hx: used to smoke 1PPD since being a teenager, currently smokes a few cigarettes every other day. She denies alcohol and drug use. 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 She denies excessive smoke exposure, but endorses possible asbestosis exposure. Family Hx: father- heart disease and PAD REVIEW OF SYSTEMS: CONSTITUTIONAL: Absent: fever, chills, diaphoresis, generalized weakness, malaise, loss of appetite, weight change HEENT: Absent: rhinorrhea, nasal congestion, throat pain, throat swelling, difficulty swallowing, mouth swelling, ear pain, eye pain, visual changes present: sinus pain, nasal congestion CARDIOVASCULAR: Absent: irregular heart rate, lightheadedness, peripheral edema present: chest pressure, palpitations RESPIRATORY: Absent: stridor, hemoptysis present: cough, SOB GASTROINTESTINAL: Absent: abdominal pain, abdominal distension, vomiting, diarrhea, constipation, melena, hematochezia present: nausea GENITOURINARY: Absent: dysuria, frequency, urgency, hesitancy, hematuria, flank pain, genital pain MUSCULOSKELETAL: Absent: myalgia, arthralgia, joint swelling, back pain, neck pain SKIN: Absent: rash, itching, pallor HEMATOLOGIC/IMMUNOLOGIC: Absent: easy bleeding, easy bruising, lymphadenopathy, frequent infections ENDOCRINE: Absent: unexplained weight gain, unexplained weight loss, heat intolerance, cold intolerance NEUROLOGIC: Absent: headache, focal weakness or paresthesias, dizziness, unsteady gait, seizure, mental status changes, bladder or bowel incontinence PSYCHIATRIC: Absent: anxiety, depression, suicidal or homicidal ideation, hallucinations. PHYSICAL EXAMINATION Vital Signs - 24 hr 02/18/17 02/18/17 02/19/17 22:25 23:10 02:56 Temperature 98.3 F 99 F Pulse Rate 98 H 104 H Pulse Rate [ Apical] Respiratory 26 H 18 Rate Blood Pressure 151/95 166/94 Blood Pressure [Left Arm] O2 Sat by Pulse 93 L 95 95 Oximetry (%) 02/19/17 02/19/17 02/19/17 03:30 05:08 10:00 Temperature 98.4 F 99 F 98.7 F Pulse Rate 104 H 106 H Pulse Rate [ 90 Apical] Respiratory 20 18 22 Rate Blood Pressure 166/94 142/63 Blood Pressure 153/88 [Left Arm] O2 Sat by Pulse 97 Oximetry (%) GENERAL: elderly female, awake, alert, and fully oriented, in no acute distress. HEENT: no pharyngeal erythema NECK: Normal range of motion, supple without lymphadenopathy, JVD, or masses. LUNGS: bibasilar rales, L > R HEART: Regular rate and rhythm, normal S1 and S2 without murmur, rub or gallop. ABDOMEN: Soft, nontender, not distended, normoactive bowel sounds, no guarding, no rebound, no masses. No hepatomegaly or splenomegaly. MUSCULOSKELETAL: trace b/l LE edema NEUROLOGICAL: Cranial nerves II-XII intact. Normal speech. PSYCHIATRIC: Cooperative. Good eye contact. Appropriate mood and affect. SKIN: Warm, dry, normal turgor, no rashes or lesions noted. Laboratory Results - last 24 hr 02/19/17 02/19/17 02/19/17 00:19 00:19 07:00 WBC 13.6 H D 12.6 H RBC 3.90 D 4.02 Hgb 13.9 D 14.1 Hct 41.3 D 43.0 MCV 105.8 H 106.9 H MCH 35.6 H 35.0 H MCHC 33.6 32.7 RDW 15.6 15.9 H Plt Count 215 223 MPV 9.4 9.7 Neutrophils % 81.8 D 95.2 H Lymphocytes % 10.6 3.7 L D Monocytes % 6.7 0.9 L D Eosinophils % 0.4 D 0.0 D Basophils % 0.5 0.2 Hypochromia 0 Platelet Estimate Normal Platelet Comment Present Polychromasia 1+ Poikilocytosis Few 0 Anisocytosis 1+ 1+ Microcytosis 1+ Macrocytosis 1+ 0 PT with INR INR Sodium 138 Potassium 4.6 Chloride 100 Carbon Dioxide 28 Anion Gap 10 BUN 15 D Creatinine 0.5 L Creat Clearance w eGFR > 60 Random Glucose 108 H D Calcium 8.3 L Phosphorus Magnesium Total Bilirubin 1.0 D AST 34 D ALT 21 D Alkaline Phosphatase 63 D Total Protein 6.1 L Albumin 3.1 L TSH 02/19/17 02/19/17 02/19/17 07:00 07:00 07:00 WBC RBC Hgb Hct MCV MCH MCHC RDW Plt Count MPV Neutrophils % Lymphocytes % Monocytes % Eosinophils % Basophils % Hypochromia Platelet Estimate Platelet Comment Polychromasia Poikilocytosis Anisocytosis Microcytosis Macrocytosis PT with INR 11.00 INR 0.97 Sodium 137 Potassium 4.0 Chloride 98 Carbon Dioxide 27 Anion Gap 12 BUN 14 Creatinine 0.8 D Creat Clearance w eGFR > 60 Random Glucose 143 H D Calcium 9.2 Phosphorus 4.4 Magnesium 2.3 Total Bilirubin 1.0 AST 27 D ALT 21 Alkaline Phosphatase 69 Total Protein 6.9 Albumin 3.5 TSH 1.13 Cancelled Active Medications Generic Name Dose Route Start Last Admin Trade Name Freq PRN Reason Stop Dose Admin Albuterol Sulfate 1 amp 02/19/17 02:58 Ventolin 0.5% - NEB Q4H PRN SHORT OF BREATH/WHEEZING Albuterol/Ipratropium 1 amp 02/19/17 06:00 02/19/17 11:25 Duoneb - NEB 1 amp QIDR JULIET Administration Aspirin 81 mg 02/19/17 10:00 02/19/17 09:10 Asa - PO 81 mg DAILY JULIET Administration Atorvastatin Calcium 20 mg 02/19/17 22:00 Lipitor - PO HS JULIET Budesonide/Formoterol Fumarate 2 puff 02/19/17 10:00 02/19/17 09:44 Symbicort 80/4.5mcg - IH Not Given BID JULIET Heparin Sodium (Porcine) 5,000 unit 02/19/17 06:00 Heparin - SQ TID JULIET Azithromycin 500 mg/ Dextrose 250 mls @ 250 mls/hr 02/20/17 10:00 IVPB DAILY JULIET Methylprednisolone Sodium Succinate 40 mg 02/19/17 10:00 02/19/17 09:10 Solu-Medrol - IVPUSH 40 mg Q8H-IV JULIET Administration Ranitidine HCl 150 mg 02/19/17 10:00 02/19/17 09:10 Zantac - PO 150 mg BID JULIET Administration CXR: b/l basilar atelectasis, and blunting of costophrenic angles suggestive of pleural effusions. ASSESSMENT/PLAN: 66F w/ hx of COPD (not on home O2, never been hospitalized for exacerbation), PVD (b/l leg stents), CAD (stent in '08), HLD, and HTN who presents with 1 day of several episodes of SOB. #SOB -possibly COPD exacerbation triggered by underlying sinus infection vs. inflammation of vocal cords vs. cardiac cause -BD, standing and PRN -O2 via NC -steroids -azithromycin -recommend cardio consult -f/u BNP -if symptoms do not resolve, consider ENT consult Rest of care per medical team. Case discussed with attending, Dr. Solis. Dispo: We will continue to follow the patient. Thank you for this consultative opportunity. -Yonathan Denton MD PGY1 Pulmonology Team Visit type - Emergency Visit Emergency Visit: Yes ED Registration Date: 02/19/17 Care time: The patient presented to the Emergency Department on the above date and was hospitalized for further evaluation of their emergent condition. - New Patient This patient is new to me today: Yes Date on this admission: 02/19/17 - Critical Care Critical Care patient: No
[2017-02-19] MEDS: HEPARIN NA (PORCINE) 5,000 UNITS/ML 1ML VIAL SQ SCH ×2 (14:46→21:49)
--- NOTE | 2017-02-19 16:18 | CON.CARD ---
Consult Consult Specialty:: Cardiology Referred by:: Hospital Medicine Reason for Consultation:: CAD s/p PCI - History of Present Illness Chief Complaint: Dyspnea History of Present Illness: 66 y.o. female with h/o tobacco abuse, COPD, HTN, CAD s/p PCI (stent), hyperlipidemia, angina pectoris, s/p left knee replacement presented for worsening worsening SOB, persistent productive cough with yellow sputum, and post-tussive chest pressure since improved with appropriate treatment. Patient denies near or true syncope, chest pain, nausea, vomiting, lightheadedness, palpitations, abdominal pain, urinary symptoms. - History Source History Provided By: Patient Limitations to Obtaining History: No Limitations - Past Medical History RESPITE PROVIDER: Yes: Peripheral Neuropathy Cardio/Vascular: Yes: CAD, HTN, Hyperlipdemia, Other (Cardiac stents placed, history of peripheral vascular disease) Pulmonary: Yes: COPD, Other (Former smoker) - Past Surgical History Past Surgical History: Yes: Joint Replacement (left knee), Stent - Alcohol/Substance Use Hx Alcohol Use: No - Smoking History Smoking history: Current some day smoker Have you smoked in the past 12 months: Yes Aproximately how many cigarettes per day: 2 Home Medications - Allergies Allergies/Adverse Reactions: Allergies Allergy/AdvReac Type Severity Reaction Status Date / Time No Known Allergies Allergy Verified 02/15/17 16:15 - Home Medications Home Medications: Ambulatory Orders Bromfenac Sodium 1.7 ml OS DAILY 02/19/17 Clopidogrel Bisulfate [Plavix -] 75 mg PO DAILY 02/19/17 Furosemide [Lasix -] 40 mg PO PRN 02/19/17 Gabapentin 600 mg PO QID 02/19/17 Lisinopril [Prinivil] 10 mg PO DAILY 02/19/17 Metoprolol Tartrate 25 mg PO BID 02/19/17 Montelukast Na [Singulair -] 10 mg PO HS 02/19/17 Ofloxacin 0.3% Ophth Soln [Ocuflox -] 1 drop OS QID 02/19/17 Potassium Bicarbonate/Cit AC [Effer-K 20 Meq Tablet Eff] 20 meq PO DAILY Prednisolone 1% Ophthalmic [Pred Forte 1% -] 1 drop OS QID 02/19/17 Simvastatin 40 mg PO HS 02/19/17 Verapamil HCl ER [Calan Sr] 180 mg PO DAILY 02/19/17 Review of Systems - Review of Systems Cardiovascular: reports: Chest Pain Respiratory: reports: Cough, SOB Vital Signs: Vital Signs Temperature 97.7 F 02/19/17 14:06 Pulse Rate 103 H 02/19/17 14:06 Respiratory Rate 22 02/19/17 14:06 Blood Pressure 159/81 02/19/17 14:06 O2 Sat by Pulse Oximetry (%) 96 02/19/17 09:00 Constitutional: Yes: No Distress, Calm, Thin Neck: Yes: Supple Respiratory: Yes: Regular, Diminished, On Nasal O2 Gastrointestinal: Yes: Normal Bowel Sounds, Soft Cardiovascular: Yes: Regular Rate and Rhythm JVD: No Carotid Bruit: No Heart Sounds: Yes: S1, S2 Edema: No - Other Data Labs, Other Data: CBC, BMP 02/19/17 07:00 02/19/17 07:00 INR, PTT INR 0.97 (0.82-1.09) 02/19/17 07:00 Pending Imaging - Results Chest X-ray: Report Reviewed (Ashlynr KATT) Problem List - Problems (1) S/P coronary artery stent placement Code(s): Z95.5 - PRESENCE OF CORONARY ANGIOPLASTY IMPLANT AND GRAFT (2) COPD exacerbation Code(s): J44.1 - CHRONIC OBSTRUCTIVE PULMONARY DISEASE W (ACUTE) EXACERBATION (3) Peripheral vascular disease Code(s): I73.9 - PERIPHERAL VASCULAR DISEASE, UNSPECIFIED (4) HTN (hypertension) Code(s): I10 - ESSENTIAL (PRIMARY) HYPERTENSION Qualifiers: Hypertension type: essential hypertension Qualified Code(s): I10 - Essential (primary) hypertension (5) Hyperlipemia, mixed Code(s): E78.2 - MIXED HYPERLIPIDEMIA Assessment/Plan 03/26/2014 Echocardiogram shows normal LV size and fxn, tr MR, TR, abnormal LV compliance 1. AE COPD improving 2. 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 CAD post PCI/stent angina pectoris 4. HTN 5. Hyperlipidemia PLAN: 1. BD, O2 to maintian saO2>90%, steroid taper, empiric abx course 2. Continue ASA 81 qd and Lipitor 20 qd 3. Resume Calan SR 120 qd given bronchospasm 4. GI and DVT prophylaxis 5. F/u echocardiogram to assess RVSP Wednesday 6. Thank you for consultative opportunity
[2017-02-19] MEDS: VERAPAMIL HCL 120 MG CAP SUSTAINED RELEASE PO SCH (17:51)
[2017-02-19] MEDS ORDERED: FUROSEMIDE 40 MG TABLET (FP) PO PRN (18:30)
[2017-02-19] MEDS: GABAPENTIN 300 MG CAPSULE (FP) PO SCH (21:48)
[2017-02-19] MEDS: ATORVASTATIN CA 20 MG TABLET (FP) PO SCH (21:48)
[2017-02-19] MEDS: MONTELUKAST NA 10 MG TABLET PO SCH (21:48)
[2017-02-19] MEDS ORDERED: PATIENT'S OWN MEDICATION (NON-FORMULARY) (Simvastatin [Simvastatin] 40 MG) PO SCH (22:00)
[2017-02-20] MEDS: ALBUTEROL SO4 2.5/IPRATROPIUM 0.5 INH SOL 3 ML VIAL.NEB. NEB SCH ×2 (00:30→07:49)
[2017-02-20] MEDS: methylPREDNISolone NA SUCC 40 MG/1 ML VIAL IVPUSH SCH ×3 (02:04→17:20)
[2017-02-20] MEDS: HEPARIN NA (PORCINE) 5,000 UNITS/ML 1ML VIAL SQ SCH ×3 (05:43→22:05)
[2017-02-20 08:09] LABS: HEMATOCRIT 39.8 % (32.4-45.2); HEMOGLOBIN 12.9 GM/dL (10.7-15.3); MCH 34.6 pg (25.7-33.7); MCHC 32.5 g/dl (32.0-36.0); MEAN CELL VOLUME 106.6 fl (80-96); MEAN PLT VOLUME 9.6 fl (7.5-11.1); PLATELET COUNT 207 K/MM3 (134-434); RBC 3.73 M/mm3 (3.60-5.2); RDW 15.5 % (11.6-15.6); WHITE BLOOD COUNT 14.2 K/mm3 (4.0-10.0)
[2017-02-20 08:33] LABS: CHLORIDE 103 mmol/L (98-107); POTASSIUM 4.1 mmol/L (3.5-5.1); SODIUM 138 mmol/L (136-145)
[2017-02-20 08:51] LABS: ALBUMIN 3.2 g/dl (3.4-5.0); ALK PHOS 58 U/L (45-117); ANION GAP 11 (8-16); BILIRUBIN,TOTAL 0.6 mg/dL (0.2-1.0); BLOOD UREA NITROGEN 25 mg/dL (7-18); CALCIUM 8.9 mg/dL (8.5-10.1); CO2 24 mmol/L (21-32); CREATININE 0.7 mg/dL (0.55-1.02); GLUCOSE,RANDOM 156 mg/dL (74-106); N-TERMINAL BNP 5168.55 pg/ml (5-125); SGOT/AST 13 U/L (15-37); SGPT/ALT 17 U/L (12-78); TOT PROT 6.3 g/dl (6.4-8.2)
[2017-02-20] MEDS ORDERED: AZITHROMYCIN IVPB 500 MG in DEXTROSE 5%-WATER - 250 ML IVPB SCH (10:00)
[2017-02-20] MEDS: VERAPAMIL HCL 120 MG CAP SUSTAINED RELEASE PO SCH (10:22)
[2017-02-20] MEDS: CLOPIDOGREL BISULFATE 75 MG TABLET (FP) PO SCH (10:22)
[2017-02-20] MEDS: BUDESONIDE/FORMETEROL FUMARATE 80/4.5 mcg INHALER IH SCH (10:22)
[2017-02-20] MEDS: GABAPENTIN 300 MG CAPSULE (FP) PO SCH ×4 (10:22→22:04)
[2017-02-20] MEDS: NICOTINE 7 MG/24 HOURS TOPICAL PATCH TD SCH (10:22)
[2017-02-20] MEDS: ASPIRIN 81 MG CHEWABLE TABLETS PO SCH (10:22)
[2017-02-20] MEDS: AZITHROMYCIN IVPB 250 MG in DEXTROSE 5%-WATER - 250 ML IVPB SCH (10:23)
[2017-02-20] MEDS: RANITIDINE HCL 150 MG TABLET (FP) PO SCH ×2 (10:26→22:04)
--- NOTE | 2017-02-20 12:29 | PN ---
Progress Note, Physician Chief Complaint: Events noted Complaints of shortness of breath History of Present Illness: Patient was seen and examined. Awake and alert. Chart was reviewed Denies chest pain, but complains of SOB, cough (productive) - Current Medication List Current Medications: Active Medications Albuterol Sulfate (Ventolin 0.5% -) 1 amp NEB Q1H PRN PRN Reason: SHORT OF BREATH/WHEEZING Albuterol Sulfate (Ventolin 0.083% Nebulizer Soln -) 1 amp NEB Q4H PRN PRN Reason: SHORT OF BREATH/WHEEZING Aspirin (Asa -) 81 mg PO DAILY [facility] Last Admin: 02/20/17 10:22 Dose: 81 mg Atorvastatin Calcium (Lipitor -) 20 mg PO HS [facility] Last Admin: 02/19/17 21:48 Dose: 20 mg Budesonide/Formoterol Fumarate (Symbicort 80/4.5mcg -) 2 puff IH BID [facility] Last Admin: 02/20/17 10:22 Dose: 2 puff Clopidogrel Bisulfate (Plavix -) 75 mg PO DAILY [facility] Last Admin: 02/20/17 10:22 Dose: 75 mg Furosemide (Lasix -) 40 mg PO DAILY PRN Gabapentin (Neurontin -) 600 mg PO QID [facility] Last Admin: 02/20/17 10:22 Dose: 600 mg Heparin Sodium (Porcine) (Heparin -) 5,000 unit SQ TID [facility] Last Admin: 02/20/17 05:43 Dose: Not Given Azithromycin 250 mg/ Dextrose 250 mls @ 250 mls/hr IVPB DAILY [facility] Last Admin: 02/20/17 10:23 Dose: 250 mls/hr Methylprednisolone Sodium Succinate (Solu-Medrol -) 40 mg IVPUSH Q8H-IV [facility] Last Admin: 02/20/17 10:21 Dose: 40 mg Montelukast Sodium (Singulair -) 10 mg PO HS [facility] Last Admin: 02/19/17 21:48 Dose: 10 mg Nicotine (Nicoderm Patch -) 7 mg TD DAILY [facility] Last Admin: 02/20/17 10:22 Dose: 7 mg Ranitidine HCl (Zantac -) 150 mg PO BID [facility] Last Admin: 02/20/17 10:26 Dose: 150 mg Tiotropium [place] (Spiriva -) 1 puff IH DAILY [facility] Verapamil HCl (Calan Sr Capsule -) 120 mg PO DAILY [facility] Last Admin: 12/16/17 10:22 Dose: 120 mg - Objective Vital Signs: Vital Signs Temperature 97.6 F 02/19/17 22:00 Pulse Rate 100 H 02/19/17 22:00 Respiratory Rate 22 02/19/17 22:00 Blood Pressure 150/72 02/19/17 22:00 O2 Sat by Pulse Oximetry (%) 96 02/19/17 21:00 Constitutional: Yes: Well Nourished Eyes: Yes: PERRL HENT: Yes: Atraumatic Neck: Yes: Supple Cardiovascular: Yes: Regular Rate and Rhythm, S1, S2 Respiratory: Yes: Rhonchi (Expiratory) Gastrointestinal: Yes: Normal Bowel Sounds, Soft. No: Tenderness Edema: No Labs: CBC, BMP 02/20/17 07:15 02/20/17 07:15 Problem List - Problems (1) CAD (coronary artery disease) Code(s): I25.10 - ATHSCL HEART DISEASE OF [place] CORONARY ARTERY W/O ANG PCTRS Qualifiers: Coronary Disease-Associated Artery/Lesion type: [place] artery [place] vs. transplanted heart: [place] heart Associated angina: without angina Qualified Code(s): I25.10 - Atherosclerotic heart disease of [place] coronary artery without angina pectoris (2) COPD exacerbation Code(s): J44.1 - CHRONIC OBSTRUCTIVE PULMONARY DISEASE W (ACUTE) EXACERBATION (3) S/P coronary artery stent placement Code(s): Z95.5 - PRESENCE OF CORONARY ANGIOPLASTY IMPLANT AND GRAFT (4) Peripheral vascular disease Code(s): I73.9 - PERIPHERAL VASCULAR DISEASE, UNSPECIFIED (5) HTN (hypertension) Code(s): I10 - ESSENTIAL (PRIMARY) HYPERTENSION Qualifiers: Hypertension type: essential hypertension Qualified Code(s): I10 - Essential (primary) hypertension (6) Hyperlipemia, mixed Code(s): E78.2 - MIXED HYPERLIPIDEMIA Assessment/Plan 1. 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 CAD post PCI/stent, angina pectoris 4. HTN 5. Hyperlipidemia PLAN: 1. Bronchodilator, O2, steroid taper and empiric antibiotic coverage 2. Continue ASA 81 qd and Lipitor 20 qd 3. Resume Calan SR 120 qd as tolerated 4. GI and DVT prophylaxis 5. Follow up transthoracic echocardiography on Wednesday Further plans are to follow Artie Alvarado MD
[2017-02-20] MEDS: TIOTROPIUM BROMIDE 18 MCG/INH (DEVICE W/ 5 CAPSULES) IH SCH (12:47)
--- NOTE | 2017-02-20 13:45 | PN ---
Progress Note (short form) - Note Progress Note: Subjective: The patient was seen and examined at the bedside, she reports her breathing has improved since yesterday. Current Medications Generic Name Dose Route Start Last Admin Trade Name Freq PRN Reason Stop Dose Admin Albuterol Sulfate 1 amp 02/19/17 15:44 Ventolin 0.5% - NEB Q1H PRN SHORT OF BREATH/WHEEZING Albuterol Sulfate 1 amp 02/20/17 10:58 Ventolin 0.083% Nebulizer Soln - NEB Q4H PRN SHORT OF BREATH/WHEEZING Aspirin 81 mg 02/19/17 10:00 02/20/17 10:22 Asa - PO 81 mg DAILY JULIET Administration Atorvastatin Calcium 20 mg 02/19/17 22:00 02/19/17 21:48 Lipitor - PO 20 mg HS JULIET Administration Clopidogrel Bisulfate 75 mg 02/20/17 10:00 02/20/17 10:22 Plavix - PO 75 mg DAILY JULIET Administration Furosemide 40 mg 02/19/17 18:30 Lasix - PO DAILY PRN Gabapentin 600 mg 02/19/17 22:00 02/20/17 10:22 Neurontin - PO 600 mg QID JULIET Administration Heparin Sodium (Porcine) 5,000 unit 02/19/17 06:00 02/20/17 05:43 Heparin - SQ Not Given TID JULIET Azithromycin 250 mg/ Dextrose 250 mls @ 250 mls/hr 02/20/17 10:00 02/20/17 10 :23 IVPB 250 mls/hr DAILY JULIET Administration Methylprednisolone Sodium Succinate 40 mg 02/19/17 10:00 02/20/17 10:21 Solu-Medrol - IVPUSH 40 mg Q8H-IV JULIET Administration Montelukast Sodium 10 mg 02/19/17 22:00 02/19/17 21:48 Singulair - PO 10 mg HS JULIET Administration Nicotine 7 mg 02/20/17 10:00 02/20/17 10:22 Nicoderm Patch - TD 7 mg DAILY JULIET Administration Ranitidine HCl 150 mg 02/19/17 10:00 02/20/17 10:26 Zantac - PO 150 mg BID JULIET Administration Tiotropium [place] 1 puff 02/20/17 11:00 02/20/17 12:47 Spiriva - IH 1 inh DAILY JULIET Administration Verapamil HCl 120 mg 02/19/17 16:45 02/20/17 10:22 Calan Sr Capsule - PO 120 mg DAILY JULIET Administration Objective: Vital Signs Period Temp Pulse Resp BP Sys/Olguin Pulse Ox Last 24 Hr 97.6 F-97.9 F 100-103 22-22 148-159/72-81 96 Physical Exam: General: NAD, A&Ox3 Lungs: Decreased breath sounds bilaterally Heart: Tachycardia, S1S2 Abd: Soft, non-tender, non-distended. Normoactive bowel sounds Ext: Warm, well-perfused. 2+ DP/PT bilaterally CBCD WBC 14.2 K/mm3 (4.0-10.0) H 02/20/17 07:15 RBC 3.73 M/mm3 (3.60-5.2) 02/20/17 07:15 Hgb 12.9 GM/dL (10.7-15.3) 02/20/17 07:15 Hct 39.8 % (32.4-45.2) 02/20/17 07:15 MCV 106.6 fl (80-96) H 02/20/17 07:15 MCHC 32.5 g/dl (32.0-36.0) 02/20/17 07:15 RDW 15.5 % (11.6-15.6) 02/20/17 07:15 Plt Count 207 K/MM3 (134-434) 02/20/17 07:15 MPV 9.6 fl (7.5-11.1) 02/20/17 07:15 CMP Sodium 138 mmol/L (136-145) 02/20/17 07:15 Potassium 4.1 mmol/L (3.5-5.1) 02/20/17 07:15 Chloride 103 mmol/L (98-107) 02/20/17 07:15 Carbon Dioxide 24 mmol/L (21-32) 02/20/17 07:15 Anion Gap 11 (8-16) 02/20/17 07:15 BUN 25 mg/dL (7-18) H D 02/20/17 07:15 Creatinine 0.7 mg/dL (0.55-1.02) 02/20/17 07:15 Creat Clearance w eGFR > 60 (>60) 02/20/17 07:15 Random Glucose 156 mg/dL (74-106) H 02/20/17 07:15 Calcium 8.9 mg/dL (8.5-10.1) 02/20/17 07:15 Total Bilirubin 0.6 mg/dL (0.2-1.0) D 02/20/17 07:15 AST 13 U/L (15-37) L D 02/20/17 07:15 ALT 17 U/L (12-78) 02/20/17 07:15 Alkaline Phosphatase 58 U/L (45-117) 02/20/17 07:15 Total Protein 6.3 g/dl (6.4-8.2) L 02/20/17 07:15 Albumin 3.2 g/dl (3.4-5.0) L 02/20/17 07:15 Assessment: This is a 66 year old female with PMHx of COPD, PVD, CAD (stent in 2007), HLD, HTN, who presented to the ED with worsening shortness of breath that began the day before coming to the ED. Plan: 1) Pulmonary: Acute COPD exacerbation - Continue Solu-medrol - Continue Albuterol nebs - Patient reports she was taken off of Symbicort by Dr. Smith and placed on Tudorza. Will d/c Symbicort and start Spiriva. Discussed with Dr. Solis - O2 via NC prn - Continue Azithromycin - Continue Singulair - Appreciate pulmonary consult 2) Cardiology: F/u ECHO HTN - Continue Verapamil - Continue Lasix Hyperlipidemia - Continue lipitor CAD s/p stenting 2007 - Continue ASA 3) F/E/N: - Sodium controlled diet - Monitor electrolytes 4) Prophylaxis: - OOB ambulating - Heparin 5,000u sq tid 5) Dispo: - Requires continued inpatient care CODE STATUS: FULL CODE Visit type - Emergency Visit Emergency Visit: Yes ED Registration Date: 02/19/17 Care time: The patient presented to the Emergency Department on the above date and was hospitalized for further evaluation of their emergent condition. - New Patient This patient is new to me today: No - Critical Care Critical Care patient: No
--- NOTE | 2017-02-20 13:48 | PN ---
Teaching Attending Note Name of Resident: Yonathan Denton ATTENDING PHYSICIAN STATEMENT I saw and evaluated the patient. I reviewed the resident's note and discussed the case with the resident. I agree with the resident's findings and plan as documented. SUBJECTIVE:SOB/CHEST TIGHTNESS OBJECTIVE:SCATTERED B/L CRACKLES/BNP 5000 ASSESSMENT AND PLAN: WILL TREAT FOR A/E COPD/ABS/STEROIDS/BRONCHODILATORS/O2 APPRECIATE CARDIAC INPUT/AWAIT ECHO Elsi ISSA MD
[2017-02-20] MEDS: ALBUTEROL SO4 0.083% IH SOL 2.5 MG/3 ML VIAL.NEB. NEB PRN (17:26)
[2017-02-20] MEDS: MONTELUKAST NA 10 MG TABLET PO SCH (22:04)
[2017-02-20] MEDS: ATORVASTATIN CA 20 MG TABLET (FP) PO SCH (22:05)
[2017-02-21] MEDS: ALBUTEROL SO4 0.083% IH SOL 2.5 MG/3 ML VIAL.NEB. NEB PRN ×5 (01:05→22:10)
[2017-02-21] MEDS: methylPREDNISolone NA SUCC 40 MG/1 ML VIAL IVPUSH SCH ×3 (01:33→18:04)
[2017-02-21] MEDS: HEPARIN NA (PORCINE) 5,000 UNITS/ML 1ML VIAL SQ SCH ×3 (06:19→23:12)
[2017-02-21 08:56] LABS: HEMATOCRIT 39.1 % (32.4-45.2); HEMOGLOBIN 12.6 GM/dL (10.7-15.3); MCH 34.9 pg (25.7-33.7); MCHC 32.3 g/dl (32.0-36.0); MEAN CELL VOLUME 107.8 fl (80-96); MEAN PLT VOLUME 9.6 fl (7.5-11.1); PLATELET COUNT 196 K/MM3 (134-434); RBC 3.63 M/mm3 (3.60-5.2); RDW 15.5 % (11.6-15.6)
[2017-02-21] MEDS ORDERED: PT OWN MED DRAWER 7, Y5N ONE ×2 (10:04→21:50)
[2017-02-21] MEDS: ASPIRIN 81 MG CHEWABLE TABLETS PO SCH (10:19)
[2017-02-21] MEDS: NICOTINE 7 MG/24 HOURS TOPICAL PATCH TD SCH (10:19)
[2017-02-21] MEDS: RANITIDINE HCL 150 MG TABLET (FP) PO SCH ×2 (10:19→23:11)
[2017-02-21] MEDS: CLOPIDOGREL BISULFATE 75 MG TABLET (FP) PO SCH (10:19)
[2017-02-21] MEDS: GABAPENTIN 300 MG CAPSULE (FP) PO SCH ×4 (10:19→22:00)
[2017-02-21] MEDS: TIOTROPIUM BROMIDE 18 MCG/INH (DEVICE W/ 5 CAPSULES) IH SCH (10:20)
[2017-02-21] MEDS: VERAPAMIL HCL 120 MG CAP SUSTAINED RELEASE PO SCH (10:20)
[2017-02-21] MEDS: AZITHROMYCIN IVPB 250 MG in DEXTROSE 5%-WATER - 250 ML IVPB SCH (11:30)
--- NOTE | 2017-02-21 11:42 | PN ---
Progress Note (short form) - Note Progress Note: Subjective: The patient was seen and examined at the bedside, she reports her breathing has improved since yesterday. Current Medications Generic Name Dose Route Start Last Admin Trade Name Freq PRN Reason Stop Dose Admin Albuterol Sulfate 1 amp 02/19/17 15:44 Ventolin 0.5% - NEB Q1H PRN SHORT OF BREATH/WHEEZING Albuterol Sulfate 1 amp 02/20/17 10:58 02/21/17 10:46 Ventolin 0.083% Nebulizer Soln - NEB 1 amp Q4H PRN Administration SHORT OF BREATH/WHEEZING Aspirin 81 mg 02/19/17 10:00 02/21/17 10:19 Asa - PO 81 mg DAILY JULIET Administration Atorvastatin Calcium 20 mg 02/19/17 22:00 02/20/17 22:05 Lipitor - PO 20 mg HS JULIET Administration Clopidogrel Bisulfate 75 mg 02/20/17 10:00 02/21/17 10:19 Plavix - PO 75 mg DAILY JULIET Administration Furosemide 40 mg 02/19/17 18:30 Lasix - PO DAILY PRN Gabapentin 600 mg 02/19/17 22:00 02/21/17 10:19 Neurontin - PO 600 mg QID JULIET Administration Heparin Sodium (Porcine) 5,000 unit 02/19/17 06:00 02/21/17 06:19 Heparin - SQ 5,000 unit TID JULIET Administration Azithromycin 250 mg/ Dextrose 250 mls @ 250 mls/hr 02/20/17 10:00 02/20/17 10 :23 IVPB 250 mls/hr DAILY JULIET Administration Methylprednisolone Sodium Succinate 40 mg 02/19/17 10:00 02/21/17 10:21 Solu-Medrol - IVPUSH 40 mg Q8H-IV JULIET Administration Montelukast Sodium 10 mg 02/19/17 22:00 02/20/17 22:04 Singulair - PO 10 mg HS JULIET Administration Nicotine 7 mg 02/20/17 10:00 02/21/17 10:19 Nicoderm Patch - TD 7 mg DAILY JULIET Administration Ranitidine HCl 150 mg 02/19/17 10:00 02/21/17 10:19 Zantac - PO 150 mg BID JULIET Administration Tiotropium [place] 1 puff 02/20/17 11:00 02/21/17 10:20 Spiriva - IH 1 inh DAILY JULIET Administration Verapamil HCl 120 mg 02/19/17 16:45 02/21/17 10:20 Calan Sr Capsule - PO 120 mg DAILY JULIET Administration Objective: Vital Signs Period Temp Pulse Resp BP Sys/Olguin Pulse Ox Last 24 Hr 97.5 F-98.4 F 79-88 20-22 143-162/66-90 97 Physical Exam: General: NAD, A&Ox3 Lungs: Decreased breath sounds bilaterally, b/l crackles Heart: Tachycardia, S1S2 Abd: Soft, non-tender, non-distended. Normoactive bowel sounds Ext: Warm, well-perfused. 2+ DP/PT bilaterally CBCD WBC 12.0 K/mm3 (4.0-10.0) H 02/21/17 08:00 RBC 3.63 M/mm3 (3.60-5.2) 02/21/17 08:00 Hgb 12.6 GM/dL (10.7-15.3) 02/21/17 08:00 Hct 39.1 % (32.4-45.2) 02/21/17 08:00 MCV 107.8 fl (80-96) H 02/21/17 08:00 MCHC 32.3 g/dl (32.0-36.0) 02/21/17 08:00 RDW 15.5 % (11.6-15.6) 02/21/17 08:00 Plt Count 196 K/MM3 (134-434) 02/21/17 08:00 MPV 9.6 fl (7.5-11.1) 02/21/17 08:00 CMP Sodium 138 mmol/L (136-145) 02/20/17 07:15 Potassium 4.1 mmol/L (3.5-5.1) 02/20/17 07:15 Chloride 103 mmol/L (98-107) 02/20/17 07:15 Carbon Dioxide 24 mmol/L (21-32) 02/20/17 07:15 Anion Gap 11 (8-16) 02/20/17 07:15 BUN 25 mg/dL (7-18) H D 02/20/17 07:15 Creatinine 0.7 mg/dL (0.55-1.02) 02/20/17 07:15 Creat Clearance w eGFR > 60 (>60) 02/20/17 07:15 Random Glucose 156 mg/dL (74-106) H 02/20/17 07:15 Calcium 8.9 mg/dL (8.5-10.1) 02/20/17 07:15 Total Bilirubin 0.6 mg/dL (0.2-1.0) D 02/20/17 07:15 AST 13 U/L (15-37) L D 02/20/17 07:15 ALT 17 U/L (12-78) 02/20/17 07:15 Alkaline Phosphatase 58 U/L (45-117) 02/20/17 07:15 Total Protein 6.3 g/dl (6.4-8.2) L 02/20/17 07:15 Albumin 3.2 g/dl (3.4-5.0) L 02/20/17 07:15 Assessment: This is a 66 year old female with PMHx of COPD, PVD, CAD (stent in 2007), HLD, HTN, who presented to the ED with worsening shortness of breath that began the day before coming to the ED. Plan: 1) Pulmonary: Acute COPD exacerbation - Continue Solu-medrol - Continue Albuterol nebs - Patient reports she was taken off of Symbicort by Dr. Smith and placed on Tudorza. Will d/c Symbicort and start Spiriva. Discussed with Dr. Solis - Start Advair - O2 via NC prn - Continue Azithromycin - Continue Singulair - Appreciate pulmonary consult 2) Cardiology: F/u ECHO HTN - Continue Verapamil - Continue Lasix Hyperlipidemia - Continue lipitor CAD s/p stenting 2007 - Continue ASA 3) F/E/N: - Sodium controlled diet - Monitor electrolytes 4) Prophylaxis: - OOB ambulating - Heparin 5,000u sq tid 5) Dispo: - Requires continued inpatient care CODE STATUS: FULL CODE Visit type - Emergency Visit Emergency Visit: Yes ED Registration Date: 02/19/17 Care time: The patient presented to the Emergency Department on the above date and was hospitalized for further evaluation of their emergent condition. - New Patient This patient is new to me today: No - Critical Care Critical Care patient: No
--- NOTE | 2017-02-21 12:09 | PN ---
Progress Note (short form) - Note Progress Note: PULMONARY AWAKE/ALERT REMAINS DYSPNEIC ANICTERIC CRACKLES BIBASILAR S1S2 BS+ LESS EDEMA LOWER EXT LABS/MEDS/NOTES/IMAGES REVIEWED WILL TREAT FOR A/E COPD/ABS/STEROIDS/BRONCHODILATORS/O2 APPRECIATE CARDIAC INPUT/AWAIT ECHO MAY NEED INCREASE LASIX DOSE/FLUID RESTRICT/SODIUM CONTROLLED Elsi ISSA MD
--- NOTE | 2017-02-21 21:21 | PN ---
Progress Note, Physician Chief Complaint: Events noted Breathing slowly improving History of Present Illness: Patient was seen and examined. Awake and alert. Chart was reviewed Denies chest pain, but complains of less amount of SOB, cough (productive) - Current Medication List Current Medications: Active Medications Albuterol Sulfate (Ventolin 0.5% -) 1 amp NEB Q1H PRN PRN Reason: SHORT OF BREATH/WHEEZING Albuterol Sulfate (Ventolin 0.083% Nebulizer Soln -) 1 amp NEB Q4H PRN PRN Reason: SHORT OF BREATH/WHEEZING Last Admin: 02/21/17 18:12 Dose: 1 amp Aspirin (Asa -) 81 mg PO DAILY [facility] Last Admin: 02/21/17 10:19 Dose: 81 mg Atorvastatin Calcium (Lipitor -) 20 mg PO HS [facility] Last Admin: 02/20/17 22:05 Dose: 20 mg Clopidogrel Bisulfate (Plavix -) 75 mg PO DAILY [facility] Last Admin: 02/21/17 10:19 Dose: 75 mg Furosemide (Lasix -) 40 mg PO DAILY [facility] Gabapentin (Neurontin -) 600 mg PO QID [facility] Last Admin: 02/21/17 18:04 Dose: 600 mg Heparin Sodium (Porcine) (Heparin -) 5,000 unit SQ TID [facility] Last Admin: 02/21/17 14:43 Dose: 5,000 unit Azithromycin 250 mg/ Dextrose 250 mls @ 250 mls/hr IVPB DAILY [facility] Last Admin: 02/21/17 11:30 Dose: 250 mls/hr Methylprednisolone Sodium Succinate (Solu-Medrol -) 40 mg IVPUSH Q8H-IV [facility] Last Admin: 02/21/17 18:04 Dose: 40 mg Montelukast Sodium (Singulair -) 10 mg PO HS [facility] Last Admin: 02/20/17 22:04 Dose: 10 mg Nicotine (Nicoderm Patch -) 7 mg TD DAILY [facility] Last Admin: 02/21/17 10:19 Dose: 7 mg Ranitidine HCl (Zantac -) 150 mg PO BID [facility] Last Admin: 02/21/17 10:19 Dose: 150 mg Fluticasone/Salmeterol (Advair 100mcg/50mcg -) 1 puff IH BID [facility] Tiotropium [place] (Spiriva -) 1 puff IH DAILY [facility] Last Admin: 02/21/17 10:20 Dose: 1 inh Verapamil HCl (Calan Sr Capsule -) 120 mg PO DAILY JULI[facility] Last Admin: 02/21/17 10:20 Dose: 120 mg - Objective Vital Signs: Vital Signs Temperature 97.9 F 02/21/17 19:15 Pulse Rate 84 02/21/17 19:15 Respiratory Rate 20 02/21/17 19:15 Blood Pressure 165/78 02/21/17 19:15 O2 Sat by Pulse Oximetry (%) 96 02/21/17 09:00 Constitutional: Yes: Well Nourished Eyes: Yes: PERRL HENT: Yes: Atraumatic Neck: Yes: Supple Cardiovascular: Yes: Regular Rate and Rhythm, S1, S2 Respiratory: Yes: Diminished, Rhonchi Gastrointestinal: Yes: Normal Bowel Sounds, Soft. No: Tenderness Edema: No Labs: CBC, BMP 02/21/17 08:00 02/20/17 07:15 Problem List - Problems (1) CAD (coronary artery disease) Code(s): I25.10 - ATHSCL HEART DISEASE OF [place] CORONARY ARTERY W/O ANG PCTRS Qualifiers: Coronary Disease-Associated Artery/Lesion type: [place] artery [place] vs. transplanted heart: [place] heart Associated angina: without angina Qualified Code(s): I25.10 - Atherosclerotic heart disease of [place] coronary artery without angina pectoris (2) COPD exacerbation Code(s): J44.1 - CHRONIC OBSTRUCTIVE PULMONARY DISEASE W (ACUTE) EXACERBATION (3) S/P coronary artery stent placement Code(s): Z95.5 - PRESENCE OF CORONARY ANGIOPLASTY IMPLANT AND GRAFT (4) Peripheral vascular disease Code(s): I73.9 - PERIPHERAL VASCULAR DISEASE, UNSPECIFIED (5) HTN (hypertension) Code(s): I10 - ESSENTIAL (PRIMARY) HYPERTENSION Qualifiers: Hypertension type: essential hypertension Qualified Code(s): I10 - Essential (primary) hypertension (6) Hyperlipemia, mixed Code(s): E78.2 - MIXED HYPERLIPIDEMIA Assessment/Plan 1. Acute exacerbation of COPD 2. 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 CAD post PCI/stent, angina pectoris 4. HTN 5. Hyperlipidemia PLAN: 1. Bronchodilator, O2, steroid taper and empiric antibiotic coverage 2. Continue ASA 81 qd and Lipitor 20 qd 3. Resume Calan SR 120 qd as tolerated 4. GI and DVT prophylaxis 5. Transthoracic echocardiography scheduled Wednesday Further plans are to follow Artie Alvarado MD
[2017-02-21] MEDS: FLUTICASONE/SALMETEROL 100 MCG/50 MCG DISKUS IH SCH (22:05)
[2017-02-21] MEDS: MONTELUKAST NA 10 MG TABLET PO SCH (23:12)
[2017-02-21] MEDS: ATORVASTATIN CA 20 MG TABLET (FP) PO SCH (23:12)
[2017-02-22] MEDS: methylPREDNISolone NA SUCC 40 MG/1 ML VIAL IVPUSH SCH ×3 (01:39→17:37)
[2017-02-22] MEDS: ALBUTEROL SO4 0.083% IH SOL 2.5 MG/3 ML VIAL.NEB. NEB PRN ×2 (01:44→05:35)
[2017-02-22] MEDS: HEPARIN NA (PORCINE) 5,000 UNITS/ML 1ML VIAL SQ SCH ×4 (06:10→22:27)
[2017-02-22 08:16] LABS: HEMATOCRIT 37.8 % (32.4-45.2); HEMOGLOBIN 12.4 GM/dL (10.7-15.3); MCH 35.4 pg (25.7-33.7); MCHC 32.9 g/dl (32.0-36.0); MEAN CELL VOLUME 107.7 fl (80-96); MEAN PLT VOLUME 9.6 fl (7.5-11.1); PLATELET COUNT 194 K/MM3 (134-434); RBC 3.51 M/mm3 (3.60-5.2); RDW 15.3 % (11.6-15.6); WHITE BLOOD COUNT 8.6 K/mm3 (4.0-10.0)
--- NOTE | 2017-02-22 10:59 | PN ---
Progress Note, Physician History of Present Illness: Dyspnea with minimal exertion persists with cough productive of yellow sputum. BP remains elevated. - Current Medication List Current Medications: Active Medications Albuterol Sulfate (Ventolin 0.5% -) 1 amp NEB Q1H PRN PRN Reason: SHORT OF BREATH/WHEEZING Albuterol Sulfate (Ventolin 0.083% Nebulizer Soln -) 1 amp NEB Q4H PRN PRN Reason: SHORT OF BREATH/WHEEZING Last Admin: 02/22/17 05:35 Dose: 1 amp Aspirin (Asa -) 81 mg PO DAILY [facility] Last Admin: 02/21/17 10:19 Dose: 81 mg Atorvastatin Calcium (Lipitor -) 20 mg PO HS [facility] Last Admin: 02/21/17 23:12 Dose: 20 mg Clopidogrel Bisulfate (Plavix -) 75 mg PO DAILY [facility] Last Admin: 02/21/17 10:19 Dose: 75 mg Furosemide (Lasix -) 40 mg PO DAILY [facility] Gabapentin (Neurontin -) 600 mg PO QID [facility] Last Admin: 02/21/17 22:00 Dose: 600 mg Heparin Sodium (Porcine) (Heparin -) 5,000 unit SQ TID [facility] Last Admin: 02/22/17 06:15 Dose: 5,000 unit Azithromycin 250 mg/ Dextrose 250 mls @ 250 mls/hr IVPB DAILY [facility] Last Admin: 02/21/17 11:30 Dose: 250 mls/hr Methylprednisolone Sodium Succinate (Solu-Medrol -) 40 mg IVPUSH Q8H-IV [facility] Last Admin: 02/22/17 01:39 Dose: 40 mg Montelukast Sodium (Singulair -) 10 mg PO HS [facility] Last Admin: 02/21/17 23:12 Dose: 10 mg Nicotine (Nicoderm Patch -) 7 mg TD DAILY [facility] Last Admin: 02/21/17 10:19 Dose: 7 mg Ranitidine HCl (Zantac -) 150 mg PO BID [facility] Last Admin: 02/21/17 23:11 Dose: 150 mg Fluticasone/Salmeterol (Advair 100mcg/50mcg -) 1 puff IH BID [facility] Last Admin: 02/21/17 22:05 Dose: 1 puff Tiotropium [place] (Spiriva -) 1 puff IH DAILY [facility] Last Admin: 02/21/17 10:20 Dose: 1 inh Verapamil HCl (Calan Sr Capsule -) 120 mg PO DAILY [facility] Last Admin: 02/21/17 10:20 Dose: 120 mg - Objective Vital Signs: Vital Signs Temperature 98.0 F 02/22/17 09:00 Pulse Rate 87 02/22/17 09:00 Respiratory Rate 20 02/22/17 09:00 Blood Pressure 173/84 02/22/17 09:00 O2 Sat by Pulse Oximetry (%) 96 02/21/17 22:00 Constitutional: Yes: No Distress, Calm, Thin Neck: Yes: Supple Cardiovascular: Yes: Regular Rate and Rhythm Respiratory: Yes: Regular, Cough, Diminished, On Nasal O2, SOB on Exertion, Wheezes Gastrointestinal: Yes: Normal Bowel Sounds, Soft Edema: No Labs: CBC, BMP 02/22/17 07:45 02/20/17 07:15 INR, PTT INR 0.97 (0.82-1.09) 02/19/17 07:00 Problem List - Problems (1) S/P coronary artery stent placement Code(s): Z95.5 - PRESENCE OF CORONARY ANGIOPLASTY IMPLANT AND GRAFT (2) COPD exacerbation Code(s): J44.1 - CHRONIC OBSTRUCTIVE PULMONARY DISEASE W (ACUTE) EXACERBATION (3) Peripheral vascular disease Code(s): I73.9 - PERIPHERAL VASCULAR DISEASE, UNSPECIFIED (4) HTN (hypertension) Code(s): I10 - ESSENTIAL (PRIMARY) HYPERTENSION Qualifiers: Hypertension type: essential hypertension Qualified Code(s): I10 - Essential (primary) hypertension (5) Hyperlipemia, mixed Code(s): E78.2 - MIXED HYPERLIPIDEMIA Assessment/Plan 1. Acute exacerbation of COPD 2. 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 CAD post PCI/stent, angina pectoris 4. HTN, BP not at goal control 5. Hyperlipidemia PLAN: 1. Bronchodilator, O2, steroid taper, Singulair and empiric antibiotic coverage 2. Continue ASA 81 qd, Plavix 75 qd, Lasix 40 qd and Lipitor 20 qd 3. Increase Calan SR 180 qd and resume lisinopril 10 qd as tolerated 4. GI and DVT prophylaxis 5. Transthoracic echocardiography scheduled Wednesday
[2017-02-22] MEDS: NICOTINE 7 MG/24 HOURS TOPICAL PATCH TD SCH (11:39)
[2017-02-22] MEDS: TIOTROPIUM BROMIDE 18 MCG/INH (DEVICE W/ 5 CAPSULES) IH SCH (11:39)
[2017-02-22] MEDS: GABAPENTIN 300 MG CAPSULE (FP) PO SCH ×4 (11:39→22:27)
[2017-02-22] MEDS: FUROSEMIDE 40 MG TABLET (FP) PO SCH (11:40)
[2017-02-22] MEDS: RANITIDINE HCL 150 MG TABLET (FP) PO SCH ×2 (11:40→22:27)
[2017-02-22] MEDS: CLOPIDOGREL BISULFATE 75 MG TABLET (FP) PO SCH (11:40)
[2017-02-22] MEDS: VERAPAMIL HCL 120 MG CAP SUSTAINED RELEASE PO SCH (11:40)
[2017-02-22] MEDS: ASPIRIN 81 MG CHEWABLE TABLETS PO SCH (11:40)
[2017-02-22] MEDS: AZITHROMYCIN IVPB 250 MG in DEXTROSE 5%-WATER - 250 ML IVPB SCH (11:41)
--- NOTE | 2017-02-22 12:11 | PN ---
Progress Note (short form) - Note Progress Note: Still with Dyspnea on minimal exertion. Congested cough with yellow sputum. Concerned that her LLL is starting to feel numb and is requesting Dr Morgan to evaluate her. Intake & Output 02/19/17 02/20/17 02/21/17 02/22/17 23:59 23:59 23:59 23:59 Intake Total 440 1050 1350 10 Output Total 200 Balance 240 1050 1350 10 Weight 142 lb 4.8 oz Last Vital Signs Temp Pulse Resp BP Pulse Ox 98.0 F 87 20 173/84 96 02/22/17 09:00 02/22/17 09:00 02/22/17 09:00 02/22/17 09:00 02/21/17 22:00 Active Medications Albuterol Sulfate (Ventolin 0.5% -) 1 amp NEB Q1H PRN PRN Reason: SHORT OF BREATH/WHEEZING Last Admin: 02/22/17 10:45 Dose: 1 amp Albuterol Sulfate (Ventolin 0.083% Nebulizer Soln -) 1 amp NEB Q4H PRN PRN Reason: SHORT OF BREATH/WHEEZING Last Admin: 02/22/17 05:35 Dose: 1 amp Aspirin (Asa -) 81 mg PO DAILY [facility] Last Admin: 02/22/17 11:40 Dose: 81 mg Atorvastatin Calcium (Lipitor -) 20 mg PO HS [facility] Last Admin: 02/21/17 23:12 Dose: 20 mg Clopidogrel Bisulfate (Plavix -) 75 mg PO DAILY [facility] Last Admin: 02/22/17 11:40 Dose: 75 mg Furosemide (Lasix -) 40 mg PO DAILY [facility] Last Admin: 02/22/17 11:40 Dose: 40 mg Gabapentin (Neurontin -) 600 mg PO QID [facility] Last Admin: 02/22/17 11:39 Dose: 600 mg Heparin Sodium (Porcine) (Heparin -) 5,000 unit SQ TID [facility] Last Admin: 02/22/17 06:15 Dose: 5,000 unit Azithromycin 250 mg/ Dextrose 250 mls @ 250 mls/hr IVPB DAILY [facility] Last Admin: 02/22/17 11:41 Dose: 250 mls/hr Lisinopril (Prinivil) 10 mg PO DAILY [facility] Methylprednisolone Sodium Succinate (Solu-Medrol -) 40 mg IVPUSH Q8H-IV [facility] Last Admin: 02/22/17 11:39 Dose: 40 mg Montelukast Sodium (Singulair -) 10 mg PO HS [facility] Last Admin: 02/21/17 23:12 Dose: 10 mg Nicotine (Nicoderm Patch -) 7 mg TD DAILY [facility] Last Admin: 02/22/17 11:39 Dose: 7 mg Ranitidine HCl (Zantac -) 150 mg PO BID [facility] Last Admin: 02/22/17 11:40 Dose: 150 mg Fluticasone/Salmeterol (Advair 100mcg/50mcg -) 1 puff IH BID [facility] Last Admin: 02/21/17 22:05 Dose: 1 puff Tiotropium [place] (Spiriva -) 1 puff IH DAILY [facility] Last Admin: 02/22/17 11:39 Dose: 1 inh Verapamil HCl (Calan Sr -) 180 mg PO DAILY [facility] BP remains elevated. Constitutional: Yes: Tachypneic at rest Neck: Yes: Supple Cardiovascular: Yes: Regular Rate and Rhythm Respiratory: Yes: Cough, Diminished at the bases, mild expiratory wheeze, On Nasal O2 Gastrointestinal: Yes: Normal Bowel Sounds, Soft Edema: No Labs: Laboratory Results - last 24 hr 02/22/17 07:45 WBC 8.6 RBC 3.51 L Hgb 12.4 Hct 37.8 MCV 107.7 H MCH 35.4 H MCHC 32.9 RDW 15.3 Plt Count 194 MPV 9.6 Problem List - Problems (1) S/P coronary artery stent placement Code(s): Z95.5 - PRESENCE OF CORONARY ANGIOPLASTY IMPLANT AND GRAFT (2) COPD exacerbation Code(s): J44.1 - CHRONIC OBSTRUCTIVE PULMONARY DISEASE W (ACUTE) EXACERBATION (3) Peripheral vascular disease Code(s): I73.9 - PERIPHERAL VASCULAR DISEASE, UNSPECIFIED (4) HTN (hypertension) Code(s): I10 - ESSENTIAL (PRIMARY) HYPERTENSION Qualifiers: Hypertension type: essential hypertension Qualified Code(s): I10 - Essential (primary) hypertension (5) Hyperlipemia, mixed Code(s): E78.2 - MIXED HYPERLIPIDEMIA Assessment/Plan 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
[2017-02-22] MEDS ORDERED: PT OWN MED DRAWER 7, Y5N ONE (12:14)
[2017-02-22] MEDS: LISINOPRIL 10 MG TABLET (FP) PO SCH (12:15)
[2017-02-22] MEDS: FLUTICASONE/SALMETEROL 100 MCG/50 MCG DISKUS IH SCH ×2 (12:16→22:28)
--- NOTE | 2017-02-22 19:11 | PN ---
Physical Exam: SUBJECTIVE: Patient seen and examined seated on edge of bed. Reports SOB with minimal exertion, walking a few steps. OBJECTIVE: Vital Signs Period Temp Pulse Resp BP Sys/Olguin Pulse Ox Last 24 Hr 97.8 F-99.8 F 75-88 18-20 149-173/76-89 96-97 GENERAL: The patient is awake, alert, and fully oriented, in no acute distress. LUNGS: Diffuse rhonchi. HEART: Regular rate and rhythm, S1, S2 without murmur, rub or gallop. ABDOMEN: Soft, nontender, nondistended, normoactive bowel sounds, no guarding, no rebound. EXTREMITIES: 2+ pulses, warm, well-perfused, no edema. NEUROLOGICAL: Cranial nerves II through XII grossly intact. Normal speech, gait not observed Laboratory Results - last 24 hr 02/22/17 07:45 WBC 8.6 RBC 3.51 L Hgb 12.4 Hct 37.8 MCV 107.7 H MCH 35.4 H MCHC 32.9 RDW 15.3 Plt Count 194 MPV 9.6 Active Medications Generic Name Dose Route Start Last Admin Trade Name Freq PRN Reason Stop Dose Admin Albuterol Sulfate 1 amp 02/19/17 15:44 02/22/17 10:45 Ventolin 0.5% - NEB 1 amp Q1H PRN Administration SHORT OF BREATH/WHEEZING Albuterol Sulfate 1 amp 02/20/17 10:58 02/22/17 05:35 Ventolin 0.083% Nebulizer Soln - NEB 1 amp Q4H PRN Administration SHORT OF BREATH/WHEEZING Aspirin 81 mg 02/19/17 10:00 02/22/17 11:40 Asa - PO 81 mg DAILY JULIET Administration Atorvastatin Calcium 20 mg 02/19/17 22:00 02/21/17 23:12 Lipitor - PO 20 mg HS JULIET Administration Clopidogrel Bisulfate 75 mg 02/20/17 10:00 02/22/17 11:40 Plavix - PO 75 mg DAILY JULIET Administration Furosemide 40 mg 02/22/17 10:00 02/22/17 11:40 Lasix - PO 40 mg DAILY JULIET Administration Gabapentin 600 mg 02/19/17 22:00 02/22/17 18:22 Neurontin - PO 600 mg QID JULIET Administration Heparin Sodium (Porcine) 5,000 unit 02/19/17 06:00 02/22/17 13:58 Heparin - SQ 5,000 unit TID JULIET Administration Azithromycin 250 mg/ Dextrose 250 mls @ 250 mls/hr 02/20/17 10:00 02/22/17 11 :41 IVPB 250 mls/hr DAILY JULIET Administration Lisinopril 10 mg 02/22/17 11:15 02/22/17 12:15 Prinivil PO 10 mg DAILY JULIET Administration Methylprednisolone Sodium Succinate 40 mg 02/19/17 10:00 02/22/17 17:37 Solu-Medrol - IVPUSH 40 mg Q8H-IV JULIET Administration Montelukast Sodium 10 mg 02/19/17 22:00 02/21/17 23:12 Singulair - PO 10 mg HS JULIET Administration Nicotine 7 mg 02/20/17 10:00 02/22/17 11:39 Nicoderm Patch - TD 7 mg DAILY JULIET Administration Ranitidine HCl 150 mg 02/19/17 10:00 02/22/17 11:40 Zantac - PO 150 mg BID JULIET Administration Fluticasone/Salmeterol 1 puff 02/21/17 22:00 02/22/17 12:16 Advair 100mcg/50mcg - IH Not Given BID JULIET Tiotropium [place] 1 puff 02/20/17 11:00 02/22/17 11:39 Spiriva - IH 1 inh DAILY JULIET Administration Verapamil HCl 180 mg 02/22/17 11:09 Calan Sr - PO DAILY JULIET ASSESSMENT/PLAN 66 year-old female with a PMH significant for HTN, HLD, CAD s/p stent, PVD, and COPD. Admitted for COPD exacerbation. COPD exacerbation --continue IV steroids --continue Advair, Spiriva, Singulair, albuterol nebs PRN --continue azithromycin (day #3) --pre post in am to assess O2 needs CAD s/p stent Peripheral arterial disease --echo appears to have been done on 02/19, no dictation in EMR, will f/u --continue ASA, Plavix, Lipitor --continue gabapentin Hypertension --increase verapamil to 180mg daily --lisinopril 10mg daily --continue Lasix Hyperlipidemia --continue Lipitor FEN Fluids: PO intake adequate Electrolytes: replete as indicated Nutrition: low sodium DVT prophylaxis: subq heparin; oob; ambulation Physical therapy Dispo: continues to require inpatient care. Full code. Visit type - Emergency Visit Emergency Visit: Yes ED Registration Date: 02/19/17 Care time: The patient presented to the Emergency Department on the above date and was hospitalized for further evaluation of their emergent condition. - New Patient This patient is new to me today: Yes Date on this admission: 02/22/17 - Critical Care Critical Care patient: No
[2017-02-22] MEDS: MONTELUKAST NA 10 MG TABLET PO SCH (22:27)
[2017-02-22] MEDS: ATORVASTATIN CA 20 MG TABLET (FP) PO SCH (22:27)
[2017-02-23] MEDS: ALBUTEROL SO4 0.083% IH SOL 2.5 MG/3 ML VIAL.NEB. NEB PRN ×2 (00:27→05:56)
[2017-02-23] MEDS: methylPREDNISolone NA SUCC 40 MG/1 ML VIAL IVPUSH SCH ×3 (01:36→17:37)
[2017-02-23] MEDS: HEPARIN NA (PORCINE) 5,000 UNITS/ML 1ML VIAL SQ SCH ×3 (06:00→21:11)
--- NOTE | 2017-02-23 07:28 | CONSULT ---
<Yonathan Cook P - Last Filed: 02/23/17 08:16> - Consultation REQUESTING PROVIDER: Abrahan Morgan - Vascular Surgery CONSULT REQUEST: We have been asked to surgically evaluate this patient for cool LLE PCP: Dr. Hdez HPI: Called to eval 66 yo female with PMHx noted below. Admitted to [facility] with exacerbation of her COPD. During her exam in the ER it was noted that she had a cool LLE. This is a chronic condition for this patient secondary to her severe PAD. States that she has noticed a gradual changer fixer the past month. Now c/o numbness/tingling. Minimal rest pain. Patient had an Arterial Duplex 02/22/17 which identified the following: severe PAD LLE w/ diminished flow (monophasic) suggestive of proximal high-grade near occlusive stenosis. PMHx: COPD, PVD, CAD, HLD, HTN PSHx: Left cataract surgery, Left TKR (~10 yrs ago), Cardiac Stent 2007, bilat LE stents 04/06/2014 ([facility]jor[facility]) Social History: Smokin/2 pack a day Home Medications Albuterol Sulfate 0.5% [Ventolin 0.5% Nebulizing Soln. -] 1 neb NEB Q4H PRN 09/16 Alendronate Na [Fosamax (Weekly)] 70 mg PO DIALLO 04/14/11 Aspirin [Baby Aspirin] 81 mg PO DAILY 04/14/11 Multivitamins [Multivit ([facility] Formulary)] 1 each PO DAILY 04/14/11 Potassium Chloride [K-Dur] 10 meq PO DAILY 04/14/11 Verapamil HCl [Verelan (Do Not Stock)] 360 mg PO DAILY 04/14/11 Simvastatin [Zocor -] 40 mg PO HS 03/21/14 Metoprolol Tartrate [Lopressor -] 25 mg PO BID 03/22/14 Clopidogrel Bisulfate [Plavix -] 75 mg PO DAILY 04/04/14 Gabapentin 600 mg PO QID 04/04/14 Prednisone 10 mg PO DAILY 02/15/17 Another Inhaler-Not Sure Of Name DAILY 02/17/17 Allergies: NKDA ROS: All systems reviewed and considered negative except for what's contained in HPI PE: GENERAL: Awake, alert, and fully oriented, in no acute distress. LUNGS: On Nasal O2. Mild cough, diminished bs at the bases bilat. Mild expiratory wheeze. HEART: RRR ABD: Soft, NT. ND LE: Right warm from groin to toes. Palpable fem/pop/dp Left: Warm from groin to knee then transitions to cool midway down tib/fib to her toes. Moving toes without pain. Unable to palpate DP or PT Last Vital Signs Temp Pulse Resp BP Pulse Ox 97.8 F 87 20 134/65 96 02/23/17 06:03 02/23/17 06:03 02/23/17 06:03 02/23/17 06:03 02/22/17 22:00 CBC, BMP 02/22/17 07:45 02/20/17 07:15 INR, PTT INR 0.97 (0.82-1.09) 02/19/17 07:00 Problem List - Problems (1) PAD (peripheral artery disease) Assessment/Plan: Cont ASA 81mg daily Cont Plavix 75mg Awaiting official results of venous duplex. Pending results, she may need CTA with bilat LE runoff. Cont medical management Dr. Morgan will be in to see patient later today Code(s): I73.9 - PERIPHERAL VASCULAR DISEASE, UNSPECIFIED (2) COPD exacerbation Assessment/Plan: Manage per Pulmonary Code(s): J44.1 - CHRONIC OBSTRUCTIVE PULMONARY DISEASE W (ACUTE) EXACERBATION Visit type - Case Type Case Type: ED Admission - Emergency Emergency Visit: Yes ED Registration Date: 02/19/17 Care time: The patient presented to the Emergency Department on the above date and was hospitalized for further evaluation of their emergent condition. - New patient This patient is new to me today: Yes Date on this admission: 02/23/17 <Abrahan Morgan - Last Filed: 02/25/17 08:18> - Consultation REQUESTING PROVIDER: CONSULT REQUEST: We have been asked to surgically evaluate this patient for ( specify). PCP:Tiara Singh HISTORY OF PRESENT ILLNESS: PMHx: PSHx: Home Medications Medication Instructions Recorded Bromfenac Sodium 1.7 ml OS DAILY 02/19/17 Clopidogrel Bisulfate [Plavix -] 75 mg PO DAILY 02/19/17 Furosemide [Lasix -] 40 mg PO PRN 02/19/17 Gabapentin 600 mg PO QID 02/19/17 Lisinopril [Prinivil] 10 mg PO DAILY 02/19/17 Metoprolol Tartrate 25 mg PO BID 02/19/17 Montelukast Na [Singulair -] 10 mg PO HS 02/19/17 Ofloxacin 0.3% Ophth Soln [Ocuflox 1 drop OS QID 02/19/17 -] Potassium Bicarbonate/Cit AC 20 meq PO DAILY 02/19/17 [Effer-K 20 Meq Tablet Eff] Prednisolone 1% Ophthalmic [Pred 1 drop OS QID 02/19/17 Forte 1% -] Simvastatin 40 mg PO HS 02/19/17 Verapamil HCl ER [Calan Sr] 180 mg PO DAILY 02/19/17 Allergies Allergy/AdvReac Type Severity Reaction Status Date / Time No Known Allergies Allergy Verified 02/15/17 16:15 REVIEW OF SYSTEMS: CONSTITUTIONAL: Absent: fever, chills, diaphoresis, generalized weakness, malaise, loss of appetite, weight change CARDIOVASCULAR: Absent: chest pain, syncope, palpitations, irregular heart rate, lightheadedness , peripheral edema RESPIRATORY: Absent: cough, shortness of breath, dyspnea with exertion, wheezing, stridor, hemoptysis GASTROINTESTINAL: Absent: abdominal pain, abdominal distension, nausea, vomiting, diarrhea, constipation, melena, hematochezia GENITOURINARY: Absent: dysuria, frequency, urgency, hesitancy, hematuria, flank pain, genital pain MUSCULOSKELETAL: Absent: myalgia, arthralgia, joint swelling, back pain, neck pain SKIN: Absent: rash, itching, pallor HEMATOLOGIC/IMMUNOLOGIC: Absent: easy bleeding, easy bruising, lymphadenopathy NEUROLOGIC: Absent: headache, focal weakness, paresthesias, dizziness, unsteady gait, seizure, mental status changes, bladder or bowel incontinence PSYCHIATRIC: Absent: anxiety, depression, suicidal or homicidal ideation, hallucinations. PHYSICAL EXAM: GENERAL: Awake, alert, and fully oriented, in no acute distress. HEAD: Normal with no signs of trauma. EYES: PERRL, sclera anicteric, conjunctiva clear. NECK: Normal ROM, supple without lymphadenopathy, JVD, or masses. LUNGS: Clear to auscultation bilat anteriorly. No wheezes, and no crackles. No accessory muscle use. HEART: Regular rate and rhythm. No murmurs ABDOMEN: Soft, nontender, not distended, normoactive bowel sounds, no guarding, no rebound, no masses. No organomegaly. MUSCULOSKELETAL: Normal ROM at all joints. No bony deformities or tenderness. No CVA tenderness. UPPER EXTREMITIES: 2+ pulses, warm, well-perfused. No cyanosis. Cap refill <2 seconds. No peripheral edema. LOWER EXTREMITIES: 2+ pulses, warm, well-perfused. No calf tenderness. No peripheral edema. NEUROLOGICAL: Normal speech, gait not observed. PSYCH: Cooperative. Good eye contact. Appropriate mood and affect. SKIN: Warm, dry, normal turgor, no rashes or lesions noted. Vital Signs Temperature 98.1 F 02/25/17 06:22 Pulse Rate 64 02/25/17 06:22 Respiratory Rate 20 02/25/17 06:22 Blood Pressure 134/65 02/25/17 06:22 O2 Sat by Pulse Oximetry (%) 99 02/24/17 22:00 Lab Results WBC 8.6 K/mm3 (4.0-10.0) 02/22/17 07:45 RBC 3.51 M/mm3 (3.60-5.2) L 02/22/17 07:45 Hgb 12.4 GM/dL (10.7-15.3) 02/22/17 07:45 Hct 37.8 % (32.4-45.2) 02/22/17 07:45 MCV 107.7 fl (80-96) H 02/22/17 07:45 MCHC 32.9 g/dl (32.0-36.0) 02/22/17 07:45 RDW 15.3 % (11.6-15.6) 02/22/17 07:45 Plt Count 194 K/MM3 (134-434) 02/22/17 07:45 Sodium 138 mmol/L (136-145) 02/20/17 07:15 Potassium 4.1 mmol/L (3.5-5.1) 02/20/17 07:15 Chloride 103 mmol/L (98-107) 02/20/17 07:15 Carbon Dioxide 24 mmol/L (21-32) 02/20/17 07:15 Anion Gap 11 (8-16) 02/20/17 07:15 BUN 25 mg/dL (7-18) H D 02/20/17 07:15 Creatinine 0.7 mg/dL (0.55-1.02) 02/20/17 07:15 Random Glucose 156 mg/dL (74-106) H 02/20/17 07:15 Calcium 8.9 mg/dL (8.5-10.1) 02/20/17 07:15 Blood Type A POSITIVE 02/23/17 15:00 Antibody Screen Negative 02/23/17 15:00 INR 0.97 (0.82-1.09) 02/19/17 07:00 History reviewed and patient examined. Left leg ischemia with rest pain and neuropathy. Duplex shows occlusion of left femoral. Doppler shows diminished flow with [place] unmeasurable in left leg. Will need angiogram for possible revascularization. Problem List - Problems (1) PAD (peripheral artery disease) Code(s): I73.9 - PERIPHERAL VASCULAR DISEASE, UNSPECIFIED
--- NOTE | 2017-02-23 10:38 | PN ---
Progress Note, Physician Chief Complaint: Events noted Lower extremity arterial Doppler noted. Complains of numbness Denies chest pain. Complains of persistent cough and SOB History of Present Illness: Patient was seen and examined. Awake and alert. Chart was reviewed As outlined. Intermittent cough - Current Medication List Current Medications: Active Medications Albuterol Sulfate (Ventolin 0.5% -) 1 amp NEB Q1H PRN PRN Reason: SHORT OF BREATH/WHEEZING Last Admin: 02/22/17 10:45 Dose: 1 amp Albuterol Sulfate (Ventolin 0.083% Nebulizer Soln -) 1 amp NEB Q4H PRN PRN Reason: SHORT OF BREATH/WHEEZING Last Admin: 02/23/17 05:56 Dose: 1 amp Aspirin (Asa -) 81 mg PO DAILY [facility] Last Admin: 02/22/17 11:40 Dose: 81 mg Atorvastatin Calcium (Lipitor -) 20 mg PO HS [facility] Last Admin: 02/22/17 22:27 Dose: 20 mg Clopidogrel Bisulfate (Plavix -) 75 mg PO DAILY [facility] Last Admin: 02/22/17 11:40 Dose: 75 mg Furosemide (Lasix -) 40 mg PO DAILY [facility] Last Admin: 02/22/17 11:40 Dose: 40 mg Gabapentin (Neurontin -) 600 mg PO QID [facility] Last Admin: 02/22/17 22:27 Dose: 600 mg Heparin Sodium (Porcine) (Heparin -) 5,000 unit SQ TID [facility] Last Admin: 02/23/17 06:00 Dose: 5,000 unit Lisinopril (Prinivil) 10 mg PO DAILY [facility] Last Admin: 02/22/17 12:15 Dose: 10 mg Methylprednisolone Sodium Succinate (Solu-Medrol -) 40 mg IVPUSH Q8H-IV [facility] Last Admin: 02/23/17 01:36 Dose: 40 mg Montelukast Sodium (Singulair -) 10 mg PO HS [facility] Last Admin: 02/22/17 22:27 Dose: 10 mg Nicotine (Nicoderm Patch -) 7 mg TD DAILY [facility] Last Admin: 02/22/17 11:39 Dose: 7 mg Ranitidine HCl (Zantac -) 150 mg PO BID [facility] Last Admin: 02/22/17 22:27 Dose: 150 mg Fluticasone/Salmeterol (Advair 100mcg/50mcg -) 1 puff IH BID [facility] Last Admin: 02/22/17 22:28 Dose: 1 puff Tiotropium [place] (Spiriva -) 1 puff IH DAILY [facility] Last Admin: 02/22/17 11:39 Dose: 1 inh Verapamil HCl (Calan Sr -) 180 mg PO DAILY [facility] - Objective Vital Signs: Vital Signs Temperature 98.0 F 02/23/17 09:00 Pulse Rate 87 02/23/17 09:00 Respiratory Rate 20 02/23/17 09:00 Blood Pressure 149/79 02/23/17 09:00 O2 Sat by Pulse Oximetry (%) 96 02/22/17 22:00 HENT: Yes: Atraumatic Neck: Yes: Supple Cardiovascular: Yes: Regular Rate and Rhythm, S1, S2 Respiratory: Yes: Diminished, Poor Air Entry Gastrointestinal: Yes: Normal Bowel Sounds, Soft. No: Tenderness Extremities: Yes: Cool Edema: No Additional Findings/Remarks: Review of Systems Constitutional: Denies: Chills or Fever Cardiovascular: denies: chest pain, palpitation (+) SOB Respiratory: (+) cough, (-) sputum and hemoptysis Gastrointestinal: Denies: Nausea, Vomiting, Diarrhea, Constipation, abdominal pain, melena, hematemesis Genitourinary: No symptoms reported Neurology: No seizures or syncope Labs: CBC, BMP 02/22/17 07:45 Problem List - Problems (1) CAD (coronary artery disease) Code(s): I25.10 - ATHSCL HEART DISEASE OF [place] CORONARY ARTERY W/O ANG PCTRS Qualifiers: Coronary Disease-Associated Artery/Lesion type: [place] artery [place] vs. transplanted heart: [place] heart Associated angina: without angina Qualified Code(s): I25.10 - Atherosclerotic heart disease of [place] coronary artery without angina pectoris (2) COPD exacerbation Code(s): J44.1 - CHRONIC OBSTRUCTIVE PULMONARY DISEASE W (ACUTE) EXACERBATION (3) S/P coronary artery stent placement Code(s): Z95.5 - PRESENCE OF CORONARY ANGIOPLASTY IMPLANT AND GRAFT (4) Peripheral vascular disease Code(s): I73.9 - PERIPHERAL VASCULAR DISEASE, UNSPECIFIED (5) HTN (hypertension) Code(s): I10 - ESSENTIAL (PRIMARY) HYPERTENSION Qualifiers: Hypertension type: essential hypertension Qualified Code(s): I10 - Essential (primary) hypertension (6) Hyperlipemia, mixed Code(s): E78.2 - MIXED HYPERLIPIDEMIA (7) PAD (peripheral artery disease) Code(s): I73.9 - PERIPHERAL VASCULAR DISEASE, UNSPECIFIED Assessment/Plan 1. Acute exacerbation of COPD 2. PAD post bilateral FABRIC STRETCHER - occlusive PAD bilaterally worse on left 3. CAD post PCI/stent, angina pectoris 4. HTN 5. Hyperlipidemia PLAN: 1. Bronchodilator, O2, steroid taper and empiric antibiotic coverage 2. Continue ASA 81 qd, Plavix 75 mg once a day and Lipitor 20 qd 3. Continue Calan SR 180 qd as tolerated. Increase Prinivil to 20 mg once a day 4. GI and DVT prophylaxis 5. Transthoracic echocardiography reviewed. Normal LV systolic function, mild MR and TR 6. Vascular surgery input noted. Await CTA of lower extremity Further plans are to follow Artie Alvarado MD
[2017-02-23] MEDS ORDERED: LISINOPRIL 20 MG TABLET (FP) PO SCH (10:44)
[2017-02-23] MEDS ORDERED: PT OWN MED DRAWER 7, Y5N ONE ×3 (10:45→21:14)
[2017-02-23] MEDS: RANITIDINE HCL 150 MG TABLET (FP) PO SCH ×2 (10:46→21:15)
[2017-02-23] MEDS: TIOTROPIUM BROMIDE 18 MCG/INH (DEVICE W/ 5 CAPSULES) IH SCH (10:46)
[2017-02-23] MEDS: FUROSEMIDE 40 MG TABLET (FP) PO SCH (10:46)
[2017-02-23] MEDS: CLOPIDOGREL BISULFATE 75 MG TABLET (FP) PO SCH (10:46)
[2017-02-23] MEDS: ASPIRIN 81 MG CHEWABLE TABLETS PO SCH (10:46)
[2017-02-23] MEDS: VERAPAMIL HCL 180 MG E.R. TABLET (FP) PO SCH (10:46)
[2017-02-23] MEDS: LISINOPRIL 10 MG TABLET (FP) PO SCH (10:46)
[2017-02-23] MEDS: GABAPENTIN 300 MG CAPSULE (FP) PO SCH ×4 (10:46→21:12)
[2017-02-23] MEDS: FLUTICASONE/SALMETEROL 100 MCG/50 MCG DISKUS IH SCH ×2 (10:51→21:11)
[2017-02-23] MEDS: NICOTINE 7 MG/24 HOURS TOPICAL PATCH TD SCH (10:51)
--- NOTE | 2017-02-23 12:46 | PN ---
Progress Note (short form) - Note Progress Note: Breathing feels "slightly" better today but still with dyspnea on minimal exertion. Congested cough with yellow sputum. Intake & Output 02/20/17 02/21/17 02/22/17 02/23/17 23:59 23:59 23:59 23:59 Intake Total 1050 1350 260 Balance 1050 1350 260 Last Vital Signs Temp Pulse Resp BP Pulse Ox 98.0 F 82 20 149/79 93 L 02/23/17 09:00 02/23/17 10:56 02/23/17 09:00 02/23/17 09:00 02/23/17 10:56 Active Medications Albuterol Sulfate (Ventolin 0.5% -) 1 amp NEB Q1H PRN PRN Reason: SHORT OF BREATH/WHEEZING Last Admin: 02/22/17 10:45 Dose: 1 amp Albuterol Sulfate (Ventolin 0.083% Nebulizer Soln -) 1 amp NEB Q4H PRN PRN Reason: SHORT OF BREATH/WHEEZING Last Admin: 02/23/17 05:56 Dose: 1 amp Aspirin (Asa -) 81 mg PO DAILY [facility] Last Admin: 02/23/17 10:46 Dose: 81 mg Atorvastatin [place] (Lipitor -) 20 mg PO HS [facility] Last Admin: 02/22/17 22:27 Dose: 20 mg Clopidogrel Bisulfate (Plavix -) 75 mg PO DAILY [facility] Last Admin: 02/23/17 10:46 Dose: 75 mg Furosemide (Lasix -) 40 mg PO DAILY [facility] Last Admin: 02/23/17 10:46 Dose: 40 mg Gabapentin (Neurontin -) 600 mg PO QID [facility] Last Admin: 02/23/17 10:46 Dose: 600 mg Heparin Sodium (Porcine) (Heparin -) 5,000 unit SQ TID [facility] Last Admin: 02/23/17 06:00 Dose: 5,000 unit Lisinopril (Prinivil) 20 mg PO DAILY [facility] Methylprednisolone Sodium Succinate (Solu-Medrol -) 40 mg IVPUSH Q8H-IV [facility] Last Admin: 02/23/17 10:46 Dose: 40 mg Montelukast Sodium (Singulair -) 10 mg PO HS [facility] Last Admin: 02/22/17 22:27 Dose: 10 mg Nicotine (Nicoderm Patch -) 7 mg TD DAILY [facility] Last Admin: 02/23/17 10:51 Dose: Not Given Ranitidine HCl (Zantac -) 150 mg PO BID [facility] Last Admin: 02/23/17 10:46 Dose: 150 mg Fluticasone/Salmeterol (Advair 100mcg/50mcg -) 1 puff IH BID [facility] Last Admin: 02/23/17 10:51 Dose: Not Given Tiotropium [place] (Spiriva -) 1 puff IH DAILY [facility] Last Admin: 02/23/17 10:46 Dose: 1 inh Verapamil HCl (Calan Sr -) 180 mg PO DAILY [facility] Last Admin: 02/23/17 10:46 Dose: 180 mg Constitutional: Yes: Mildly tachypneic at rest Neck: Yes: Supple Cardiovascular: Yes: Regular Rate and Rhythm Respiratory: Yes: Cough, Diminished at the bases, mild expiratory wheeze, On Nasal O2 Gastrointestinal: Yes: Normal Bowel Sounds, Soft Edema: No Labs: Problem List - Problems (1) S/P coronary artery stent placement Code(s): Z95.5 - PRESENCE OF CORONARY ANGIOPLASTY IMPLANT AND GRAFT (2) COPD exacerbation Code(s): J44.1 - CHRONIC OBSTRUCTIVE PULMONARY DISEASE W (ACUTE) EXACERBATION (3) Peripheral vascular disease Code(s): I73.9 - PERIPHERAL VASCULAR DISEASE, UNSPECIFIED (4) HTN (hypertension) Code(s): I10 - ESSENTIAL (PRIMARY) HYPERTENSION Qualifiers: Hypertension type: essential hypertension Qualified Code(s): I10 - Essential (primary) hypertension (5) Hyperlipemia, mixed Code(s): E78.2 - MIXED HYPERLIPIDEMIA Assessment/Plan Acute exacerbation of COPD 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 Chacon
[2017-02-23] MEDS ORDERED: ALBUTEROL SO4 0.083% IH SOL 2.5 MG/3 ML VIAL.NEB. NEB PRN (12:48)
[2017-02-23] MEDS: NICOTINE 21 MG/24 HOURS TOPICAL PATCH TD SCH (13:43)
[2017-02-23] MEDS: ALBUTEROL SO4 0.083% IH SOL 2.5 MG/3 ML VIAL.NEB. NEB SCH ×2 (14:10→19:05)
--- NOTE | 2017-02-23 14:11 | SPA.PREOP ---
Addendum entered and electronically signed by Yonathan Cook PA 02/23/17 15:27: Dx: Severe LLE PAD Original Note: - PRE-OP NOTE Dx: Planned Procedure: LLE angiogram, possible angioplasty Surgeon: Abrahan Morgan Consent: To be obtained byr surgeon after risks, benefits and alternatives explained to patient. Last Vital Signs Temp Pulse Resp BP Pulse Ox 98.0 F 82 20 149/79 93 L 02/23/17 09:00 02/23/17 10:56 02/23/17 09:00 02/23/17 09:00 02/23/17 10:56 Lab Results WBC 8.6 K/mm3 (4.0-10.0) 02/22/17 07:45 RBC 3.51 M/mm3 (3.60-5.2) L 02/22/17 07:45 Hgb 12.4 GM/dL (10.7-15.3) 02/22/17 07:45 Hct 37.8 % (32.4-45.2) 02/22/17 07:45 MCV 107.7 fl (80-96) H 02/22/17 07:45 MCHC 32.9 g/dl (32.0-36.0) 02/22/17 07:45 RDW 15.3 % (11.6-15.6) 02/22/17 07:45 Plt Count 194 K/MM3 (134-434) 02/22/17 07:45 Sodium 138 mmol/L (136-145) 02/20/17 07:15 Potassium 4.1 mmol/L (3.5-5.1) 02/20/17 07:15 Chloride 103 mmol/L (98-107) 02/20/17 07:15 Carbon Dioxide 24 mmol/L (21-32) 02/20/17 07:15 Anion Gap 11 (8-16) 02/20/17 07:15 BUN 25 mg/dL (7-18) H D 02/20/17 07:15 Creatinine 0.7 mg/dL (0.55-1.02) 02/20/17 07:15 Random Glucose 156 mg/dL (74-106) H 02/20/17 07:15 Calcium 8.9 mg/dL (8.5-10.1) 02/20/17 07:15 INR 0.97 (0.82-1.09) 02/19/17 07:00 - ASSESSMENT/PLAN Problem List - Problems (1) PAD (peripheral artery disease) Assessment/Plan: 1. NPO after midnight except po meds 2. GI/DVT PPX 3. Medical optimization / clearance 4. Type and screen Code(s): I73.9 - PERIPHERAL VASCULAR DISEASE, UNSPECIFIED (2) COPD exacerbation Code(s): J44.1 - CHRONIC OBSTRUCTIVE PULMONARY DISEASE W (ACUTE) EXACERBATION Visit type - Case Type Case Type: ED Admission
--- NOTE | 2017-02-23 17:51 | CONSULT ---
Consult - History of Present Illness History of Present Illness: 66 year old woman with history of arterial occlusive disease. She had bilateral femoral stents placed several years ago and has had no follow-up. She now complains of cold painful left leg. 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: Peripheral Neuropathy Cardio/Vascular: Yes: CAD, HTN, Hyperlipdemia, Other (Cardiac stents placed, history of peripheral vascular disease) Pulmonary: Yes: COPD, Other (Former smoker) - Past Surgical History Past Surgical History: Yes: Joint Replacement (left knee), Stent - Alcohol/Substance Use Hx Alcohol Use: No - Smoking History Smoking history: Current some day smoker Have you smoked in the past 12 months: Yes Aproximately how many cigarettes per day: 2 Home Medications - Allergies Allergies/Adverse Reactions: Allergies Allergy/AdvReac Type Severity Reaction Status Date / Time No Known Allergies Allergy Verified 02/15/17 16:15 - Home Medications Home Medications: Ambulatory Orders Bromfenac Sodium 1.7 ml OS DAILY 02/19/17 Clopidogrel Bisulfate [Plavix -] 75 mg PO DAILY 02/19/17 Furosemide [Lasix -] 40 mg PO PRN 02/19/17 Gabapentin 600 mg PO QID 02/19/17 Lisinopril [Prinivil] 10 mg PO DAILY 02/19/17 Metoprolol Tartrate 25 mg PO BID 02/19/17 Montelukast Na [Singulair -] 10 mg PO HS 02/19/17 Ofloxacin 0.3% Ophth Soln [Ocuflox -] 1 drop OS QID 02/19/17 Potassium Bicarbonate/Cit AC [Effer-K 20 Meq Tablet Eff] 20 meq PO DAILY Prednisolone 1% Ophthalmic [Pred Forte 1% -] 1 drop OS QID 02/19/17 Simvastatin 40 mg PO HS 02/19/17 Verapamil HCl ER [Calan Sr] 180 mg PO DAILY 02/19/17 Physical Exam Vital Signs: Vital Signs Temperature 98.0 F 02/23/17 14:00 Pulse Rate 82 02/23/17 10:56 Respiratory Rate 20 02/23/17 09:00 Blood Pressure 149/79 02/23/17 09:00 O2 Sat by Pulse Oximetry (%) 93 L 02/23/17 10:56 Labs: CBC, BMP 02/22/17 07:45 02/20/17 07:15 Problem List - Problems (1) PAD (peripheral artery disease) Assessment/Plan: Arterial studies show occlusion of left SFA with reconstitution of proximal popliteal. Plan for angiogram to attempt revascularization of left leg. If not possible, bypass may be indicated. Code(s): I73.9 - PERIPHERAL VASCULAR DISEASE, UNSPECIFIED
[2017-02-23] MEDS: MONTELUKAST NA 10 MG TABLET PO SCH (21:12)
[2017-02-23] MEDS: ATORVASTATIN CA 20 MG TABLET (FP) PO SCH (21:12)
[2017-02-23] MEDS: MUPIROCIN 2% TOPICAL OINTMENT 22 GM TUBE TP SCH (21:58)
[2017-02-24] MEDS: ALBUTEROL SO4 0.083% IH SOL 2.5 MG/3 ML VIAL.NEB. NEB SCH ×6 (00:05→23:46)
[2017-02-24] MEDS: methylPREDNISolone NA SUCC 40 MG/1 ML VIAL IVPUSH SCH ×3 (02:05→17:18)
[2017-02-24] MEDS: HEPARIN NA (PORCINE) 5,000 UNITS/ML 1ML VIAL SQ SCH ×2 (06:15→14:10)
[2017-02-24] MEDS: CLOPIDOGREL BISULFATE 75 MG TABLET (FP) PO SCH (09:04)
[2017-02-24] MEDS: RANITIDINE HCL 150 MG TABLET (FP) PO SCH ×2 (09:04→22:35)
[2017-02-24] MEDS: MUPIROCIN 2% TOPICAL OINTMENT 22 GM TUBE TP SCH ×2 (09:04→22:38)
[2017-02-24] MEDS: FUROSEMIDE 40 MG TABLET (FP) PO SCH (09:04)
[2017-02-24] MEDS: NICOTINE 21 MG/24 HOURS TOPICAL PATCH TD SCH (09:04)
[2017-02-24] MEDS: GABAPENTIN 300 MG CAPSULE (FP) PO SCH ×4 (09:04→22:35)
[2017-02-24] MEDS: VERAPAMIL HCL 180 MG E.R. TABLET (FP) PO SCH (09:04)
[2017-02-24] MEDS: ASPIRIN 81 MG CHEWABLE TABLETS PO SCH (09:04)
[2017-02-24] MEDS: FLUTICASONE/SALMETEROL 100 MCG/50 MCG DISKUS IH SCH (09:10)
[2017-02-24] MEDS: TIOTROPIUM BROMIDE 18 MCG/INH (DEVICE W/ 5 CAPSULES) IH SCH (09:17)
--- NOTE | 2017-02-24 11:48 | PN ---
Progress Note, Physician History of Present Illness: Dyspnea with minimal exertion persists with cough productive of yellow sputum. BP control improved. - Current Medication List Current Medications: Active Medications Albuterol Sulfate (Ventolin 0.083% Nebulizer Soln -) 1 amp NEB Q4HWA [facility] Last Admin: 02/24/17 10:03 Dose: 1 amp Albuterol Sulfate (Ventolin 0.083% Nebulizer Soln -) 1 amp NEB Q4H PRN PRN Reason: SHORT OF BREATH/WHEEZING Aspirin (Asa -) 81 mg PO DAILY [facility] Last Admin: 02/24/17 09:04 Dose: 81 mg Atorvastatin Calcium (Lipitor -) 20 mg PO HS [facility] Last Admin: 02/23/17 21:12 Dose: 20 mg Clopidogrel Bisulfate (Plavix -) 75 mg PO DAILY [facility] Last Admin: 02/24/17 09:04 Dose: 75 mg Furosemide (Lasix -) 40 mg PO DAILY [facility] Last Admin: 02/24/17 09:04 Dose: 40 mg Gabapentin (Neurontin -) 600 mg PO QID [facility] Last Admin: 02/24/17 09:04 Dose: 600 mg Heparin Sodium (Porcine) (Heparin -) 5,000 unit SQ TID [facility] Last Admin: 02/24/17 06:15 Dose: Not Given Lisinopril (Prinivil) 20 mg PO DAILY [facility] Last Admin: 02/24/17 09:04 Dose: 20 mg Methylprednisolone Sodium Succinate (Solu-Medrol -) 40 mg IVPUSH Q8H-IV [facility] Last Admin: 02/24/17 09:04 Dose: 40 mg Montelukast Sodium (Singulair -) 10 mg PO HS [facility] Last Admin: 02/23/17 21:12 Dose: 10 mg Mupirocin (Bactroban 2% Ointment -) 1 applic TP BID [facility] Last Admin: 02/24/17 09:04 Dose: 1 applic Nicotine (Nicoderm Patch -) 21 mg TD DAILY [facility] Last Admin: 02/24/17 09:04 Dose: 21 mg Ranitidine HCl (Zantac -) 150 mg PO BID [facility] Last Admin: 02/24/17 09:04 Dose: 150 mg Fluticasone/Salmeterol (Advair 100mcg/50mcg -) 1 puff IH BID [facility] Last Admin: 02/24/17 09:10 Dose: 1 puff Tiotropium [place] (Spiriva -) 1 puff IH DAILY [facility] Last Admin: 02/24/17 09:17 Dose: 1 inh Verapamil HCl (Calan Sr -) 180 mg PO DAILY [facility] Last Admin: 02/24/17 09:04 Dose: 180 mg - Objective Vital Signs: Vital Signs Temperature 98.0 F 02/24/17 05:58 Pulse Rate 78 02/24/17 05:58 Respiratory Rate 18 02/24/17 05:58 Blood Pressure 139/62 02/24/17 05:58 O2 Sat by Pulse Oximetry (%) 96 02/24/17 09:00 Constitutional: Yes: No Distress, Calm, Thin Neck: Yes: Supple Cardiovascular: Yes: Regular Rate and Rhythm Respiratory: Yes: Regular, Cough, Diminished, On Nasal O2, SOB Gastrointestinal: Yes: Normal Bowel Sounds, Soft Edema: No Labs: CBC, BMP 02/22/17 07:45 02/20/17 07:15 INR, PTT INR 0.97 (0.82-1.09) 02/19/17 07:00 - ....Imaging Chest X-ray: Report Reviewed (Left base ATX) Problem List - Problems (1) S/P coronary artery stent placement Code(s): Z95.5 - PRESENCE OF CORONARY ANGIOPLASTY IMPLANT AND GRAFT (2) COPD exacerbation Code(s): J44.1 - CHRONIC OBSTRUCTIVE PULMONARY DISEASE W (ACUTE) EXACERBATION (3) Peripheral vascular disease Code(s): I73.9 - PERIPHERAL VASCULAR DISEASE, UNSPECIFIED (4) HTN (hypertension) Code(s): I10 - ESSENTIAL (PRIMARY) HYPERTENSION Qualifiers: Hypertension type: essential hypertension Qualified Code(s): I10 - Essential (primary) hypertension (5) Hyperlipemia, mixed Code(s): E78.2 - MIXED HYPERLIPIDEMIA Assessment/Plan 02/22/2017 Echo: Normal LV size and fxn, mild LAE, mild MR, TR 1. Acute exacerbation of COPD 2. 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 CAD post PCI/stent, angina pectoris 4. HTN, BP not at goal control 5. Hyperlipidemia PLAN: 1. Bronchodilator, O2, IV steroid taper, Singulair and empiric antibiotic coverage 2. Continue ASA 81 qd, Plavix 75 qd, Lasix 40 qd and Lipitor 20 qd 3. Continue Calan SR 180 qd and lisinopril 20 qd as tolerated 4. LLE angiogram +/- STENOGRAPHIC COURT REPORTER 5. GI and DVT prophylaxis
[2017-02-24] MEDS ORDERED: ALBUTEROL SO4 0.083% IH SOL 2.5 MG/3 ML VIAL.NEB. NEB PRN (13:12)
--- NOTE | 2017-02-24 13:18 | PN ---
Progress Note (short form) - Note Progress Note: PULMONARY AWAKE/ALERT REMAINS DYSPNEIC/DYSPHONIA HAS DEVELOPED ANICTERIC/THRUSH CRACKLES BIBASILAR S1S2 BS+ LESS EDEMA LOWER EXT LABS/MEDS/NOTES/IMAGES REVIEWED A/E COPD/THRUSH/PAD ABS/STEROIDS/BRONCHODILATORS/O2/DISCONTINUE ADVAIR NYSTATIN SWISH/SWALLOW APPRECIATE CARDIAC INPUT/ ECHO NOTED VASCULAR INPUT NOTED R LUIS MANUEL RILEY
[2017-02-24] MEDS: NYSTATIN 500,000 UNITS/5 ML SUSPENSION PO SCH ×2 (14:10→17:17)
[2017-02-24] MEDS: OFLOXACIN 0.3% OPHTHALMIC SOLUTION 5 ML BOTTLE OS SCH ×3 (14:31→22:38)
[2017-02-24] MEDS: prednisoLONE ACETATE 1% OPHTH SUSP 5 ML BOTTLE OS SCH ×3 (14:32→22:39)
--- NOTE | 2017-02-24 14:49 | PN ---
Physical Exam: SUBJECTIVE: Patient seen and examined OBJECTIVE: Vital Signs Period Temp Pulse Resp BP Sys/Olguin Pulse Ox Last 24 Hr 98.0 F-98.6 F 69-83 18-20 115-159/62-81 93-96 GENERAL: The patient is awake, alert, and fully oriented, in no acute distress. HEAD: Normal with no signs of trauma. EYES: PERRL, extraocular movements intact, sclera anicteric, conjunctiva clear. No ptosis. ENT: Ears normal, nares patent, oropharynx clear without exudates, moist mucous membranes. NECK: Trachea midline, full range of motion, supple. LUNGS: Breath sounds equal, clear to auscultation bilaterally, no wheezes, no crackles, no accessory muscle use. HEART: Regular rate and rhythm, S1, S2 without murmur, rub or gallop. ABDOMEN: Soft, nontender, nondistended, normoactive bowel sounds, no guarding, no rebound, no hepatosplenomegaly, no masses. EXTREMITIES: 2+ pulses, warm, well-perfused, no edema. NEUROLOGICAL: Cranial nerves II through XII grossly intact. Normal speech, gait not observed. PSYCH: Normal mood, normal affect. SKIN: Warm, dry, normal turgor, no rashes or lesions noted Laboratory Results - last 24 hr 02/23/17 15:00 Blood Type A POSITIVE Antibody Screen Negative Active Medications Generic Name Dose Route Start Last Admin Trade Name Freq PRN Reason Stop Dose Admin Albuterol Sulfate 1 amp 02/23/17 14:00 02/24/17 10:03 Ventolin 0.083% Nebulizer Soln - NEB 1 amp Q4HWA JULIET Administration Albuterol Sulfate 1 amp 02/24/17 13:12 Ventolin 0.083% Nebulizer Soln - NEB Q1H PRN SHORT OF BREATH/WHEEZING Aspirin 81 mg 02/19/17 10:00 02/24/17 09:04 Asa - PO 81 mg DAILY JULIET Administration Atorvastatin Calcium 20 mg 02/19/17 22:00 02/23/17 21:12 Lipitor - PO 20 mg HS JULIET Administration Clopidogrel Bisulfate 75 mg 02/20/17 10:00 02/24/17 09:04 Plavix - PO 75 mg DAILY JULIET Administration Furosemide 40 mg 02/22/17 10:00 02/24/17 09:04 Lasix - PO 40 mg DAILY JULIET Administration Gabapentin 600 mg 02/19/17 22:00 02/24/17 14:10 Neurontin - PO Not Given QID JULIET Heparin Sodium (Porcine) 5,000 unit 02/19/17 06:00 02/24/17 14:10 Heparin - SQ Not Given TID JULIET Lisinopril 20 mg 02/23/17 10:44 02/24/17 09:04 Prinivil PO 20 mg DAILY J[facility]IET Administration Methylprednisolone Sodium Succinate 40 mg 02/19/17 10:00 02/24/17 09:04 Solu-Medrol - IVPUSH 40 mg Q8H-IV JULIET Administration Montelukast Sodium 10 mg 02/19/17 22:00 02/23/17 21:12 Singulair - PO 10 mg HS JULIET Administration Mupirocin 1 applic 02/23/17 22:00 02/24/17 09:04 Bactroban 2% Ointment - TP 1 applic BID JULIET Administration Nicotine 21 mg 02/23/17 13:00 02/24/17 09:04 Nicoderm Patch - TD 21 mg DAILY J[facility]IET Administration Non-Formulary Medication 1.7 ml 02/25/17 10:00 Bromfenac Sodium [Bromfenac Sodium] OS DAILY [facility] Nystatin 500,000 units 02/24/17 13:15 02/24/17 14:10 Nystatin Oral Suspension - PO Not Given Q6HPO [facility] Ofloxacin 1 drop 02/24/17 14:00 02/24/17 14:31 Ocuflox 0.3% Eye Drops - OS 1 drop QID JULIET Administration Prednisolone Acetate 1 drop 02/24/17 14:00 02/24/17 14:32 Pred Forte 1% - OS 1 drop QID JULIET Administration Ranitidine HCl 150 mg 02/19/17 10:00 02/24/17 09:04 Zantac - PO 150 mg BID JULIET Administration Tiotropium Francis 1 puff 02/20/17 11:00 02/24/17 09:17 Spiriva - IH 1 inh DAILY JULIET Administration Verapamil HCl 180 mg 02/22/17 11:09 02/24/17 09:04 Calan Sr - PO 180 mg DAILY JULIET Administration ASSESSMENT/PLAN: 66 year-old female with a PMH significant for HTN, HLD, CAD s/p stent, PVD, and COPD. Admitted for COPD exacerbation. COPD exacerbation --continue IV steroids --continue Advair, Spiriva, Singulair, albuterol nebs PRN --continue azithromycin (day #5) CAD s/p stent Peripheral arterial disease Ischemic left leg, occluded femoral artery --scheduled for revascularization later today --continue ASA, Plavix, Lipitor --continue gabapentin Hypertension --continue verapamil to 180mg daily --lisinopril 10mg daily --continue Lasix Hyperlipidemia --continue Lipitor FEN Fluids: PO intake adequate Electrolytes: replete as indicated Nutrition: low sodium DVT prophylaxis: subq heparin; oob; ambulation Physical therapy Dispo: continues to require inpatient care. Full code. Visit type - Emergency Visit Emergency Visit: Yes ED Registration Date: 02/19/17 Care time: The patient presented to the Emergency Department on the above date and was hospitalized for further evaluation of their emergent condition. - New Patient This patient is new to me today: No - Critical Care Critical Care patient: No
--- NOTE | 2017-02-24 14:49 | PN ---
Physical Exam: SUBJECTIVE: Patient seen and examined. Patient states breathing mildly improved. Patient states she got up at 4:30am and shaved her legs and caused scrapes to RLE. OBJECTIVE: Vital Signs Period Temp Pulse Resp BP Sys/Olguin Pulse Ox Last 24 Hr 98.0 F-98.6 F 69-83 18-20 115-159/62-81 93-96 GENERAL: The patient is awake, alert, and fully oriented, in no acute distress. LUNGS: Diffuse rhonchi. Slightly improved. HEART: Regular rate and rhythm, S1, S2 without murmur, rub or gallop. ABDOMEN: Soft, nontender, nondistended, normoactive bowel sounds, no guarding, no rebound. RLEL: scrapes and excoriations, mild oozing blood. EXTREMITIES: 2+ pulses, warm, well-perfused, no edema. NEUROLOGICAL: Cranial nerves II through XII grossly intact. Normal speech, gait not observed Laboratory Results - last 24 hr 02/23/17 15:00 Blood Type A POSITIVE Antibody Screen Negative Active Medications Generic Name Dose Route Start Last Admin Trade Name Freq PRN Reason Stop Dose Admin Albuterol Sulfate 1 amp 02/23/17 14:00 02/24/17 10:03 Ventolin 0.083% Nebulizer Soln - NEB 1 amp Q4HWA JULIET Administration Albuterol Sulfate 1 amp 02/24/17 13:12 Ventolin 0.083% Nebulizer Soln - NEB Q1H PRN SHORT OF BREATH/WHEEZING Aspirin 81 mg 02/19/17 10:00 02/24/17 09:04 Asa - PO 81 mg DAILY JULIET Administration Atorvastatin Calcium 20 mg 02/19/17 22:00 02/23/17 21:12 Lipitor - PO 20 mg HS JULIET Administration Clopidogrel Bisulfate 75 mg 02/20/17 10:00 02/24/17 09:04 Plavix - PO 75 mg DAILY JULIET Administration Furosemide 40 mg 02/22/17 10:00 02/24/17 09:04 Lasix - PO 40 mg DAILY JULIET Administration Gabapentin 600 mg 02/19/17 22:00 02/24/17 14:10 Neurontin - PO Not Given QID JULIET Heparin Sodium (Porcine) 5,000 unit 02/19/17 06:00 02/24/17 14:10 Heparin - SQ Not Given TID JULIET Lisinopril 20 mg 02/23/17 10:44 02/24/17 09:04 Prinivil PO 20 mg DAILY JULIET Administration Methylprednisolone Sodium Succinate 40 mg 02/19/17 10:00 02/24/17 09:04 Solu-Medrol - IVPUSH 40 mg Q8H-IV JULIET Administration Montelukast Sodium 10 mg 02/19/17 22:00 02/23/17 21:12 Singulair - PO 10 mg HS JULIET Administration Mupirocin 1 applic 02/23/17 22:00 02/24/17 09:04 Bactroban 2% Ointment - TP 1 applic BID JULIET Administration Nicotine 21 mg 02/23/17 13:00 02/24/17 09:04 Nicoderm Patch - TD 21 mg DAILY [facility]IET Administration Non-Formulary Medication 1.7 ml 02/25/17 10:00 Bromfenac Sodium [Bromfenac Sodium] OS DAILY [facility] Nystatin 500,000 units 02/24/17 13:15 02/24/17 14:10 Nystatin Oral Suspension - PO Not Given Q6HPO JULIET Ofloxacin 1 drop 02/24/17 14:00 02/24/17 14:31 Ocuflox 0.3% Eye Drops - OS 1 drop QID JULIET Administration Prednisolone Acetate 1 drop 02/24/17 14:00 02/24/17 14:32 Pred Forte 1% - OS 1 drop QID JULIET Administration Ranitidine HCl 150 mg 02/19/17 10:00 02/24/17 09:04 Zantac - PO 150 mg BID JULIET Administration Tiotropium [place] 1 puff 02/20/17 11:00 02/24/17 09:17 Spiriva - IH 1 inh DAILY JULIET Administration Verapamil HCl 180 mg 02/22/17 11:09 02/24/17 09:04 Calan Sr - PO 180 mg DAILY JULIET Administration ASSESSMENT/PLAN 66 year-old female with a PMH significant for HTN, HLD, CAD s/p stent, PVD, and COPD. Admitted for COPD exacerbation. COPD exacerbation --continue IV steroids --continue Advair, Spiriva, Singulair, albuterol nebs PRN --continue azithromycin (day #4) --pre post in am to assess O2 needs CAD s/p stent Peripheral arterial disease --continue ASA, Plavix, Lipitor --continue gabapentin --vascular consult pending Hypertension --continue verapamil to 180mg daily --lisinopril 10mg daily --continue Lasix Hyperlipidemia --continue Lipitor FEN Fluids: PO intake adequate Electrolytes: replete as indicated Nutrition: low sodium DVT prophylaxis: subq heparin; oob; ambulation Physical therapy Dispo: continues to require inpatient care. Full code. Visit type - Emergency Visit Emergency Visit: Yes ED Registration Date: 02/19/17 Care time: The patient presented to the Emergency Department on the above date and was hospitalized for further evaluation of their emergent condition. - New Patient This patient is new to me today: No - Critical Care Critical Care patient: No
[2017-02-24] MEDS ORDERED: HEPARIN NA (PORCINE) 5,000 UNITS/ML 1ML VIAL ONE ×3 (16:00→19:31)
[2017-02-24] MEDS ORDERED: LIDOCAINE HCL 1%, 10 MG/ML (20ML VIAL) ONE (16:00)
[2017-02-24] MEDS ORDERED: MIDAZOLAM HCL 2 MG/2 ML SINGLE DOSE VIAL ONE ×3 (17:54→19:18)
[2017-02-24] MEDS ORDERED: ceFAZolin SODIUM 1 GM VIAL ONE (19:38)
[2017-02-24] MEDS ORDERED: ceFAZolin SODIUM 1 GM VIAL IVPB ONE ×2 (19:40)
[2017-02-24] MEDS ORDERED: ONDANSETRON 4 MG/2 ML VIAL IVPUSH PRN (20:35)
--- NOTE | 2017-02-24 20:35 | OP ---
Operative Note - Note: Operative Date: 02/24/17 Pre-Operative Diagnosis: Ischemic left leg, occluded femoral artery Operation: Revascularization left femoral artery with stent and angioplasty Findings: Patent distal aorta and iliacs. Ulcerated plaque in common iliac. Patent, calcifiied femorals Occlusion left SFA from origin. Reconstitution popliteal at knee. Severe tibial disease with multiple collaterals in upper vanda;f and distal peroneal reconstitution. Implants: 6 mm x 150 mm Viabahn. 5 mm x 250 mm Viabahn Surgeon: Abrahan Morgan Anesthesiologist/CUSTOMER TRAINING SPECIALIST: [place] Stevenson Anesthesia: Fractional Estimated Blood Loss (mls): 20
[2017-02-24] MEDS ORDERED: ACETAMINOPHEN 325 MG TABLET (FP) PO PRN (20:38)
[2017-02-24] MEDS ORDERED: LACTATED RINGERS SOLUTION 1,000 ML IV SCH (20:45)
[2017-02-24] MEDS ORDERED: HEPARIN NA (PORCINE) 5,000 UNITS/ML 1ML VIAL SQ SCH (22:00)
[2017-02-24] MEDS ORDERED: PT OWN MED DRAWER 7, Y5N ONE (22:31)
[2017-02-24] MEDS: ATORVASTATIN CA 20 MG TABLET (FP) PO SCH (22:35)
[2017-02-24] MEDS: MONTELUKAST NA 10 MG TABLET PO SCH (22:35)
[2017-02-24] MEDS ORDERED: DEXTROSE 5%-0.45% SALINE 1,000 ML IV SCH (23:15)
[2017-02-25] MEDS: NYSTATIN 500,000 UNITS/5 ML SUSPENSION PO SCH ×4 (00:39→17:07)
[2017-02-25] MEDS: methylPREDNISolone NA SUCC 40 MG/1 ML VIAL IVPUSH SCH ×3 (01:59→17:07)
[2017-02-25] MEDS: ALBUTEROL SO4 0.083% IH SOL 2.5 MG/3 ML VIAL.NEB. NEB SCH ×5 (07:30→22:10)
--- NOTE | 2017-02-25 08:24 | PN ---
Progress Note (short form) - Note Progress Note: POD 1 No c/o Left foot warm Right groin no swelling or ecchymosis. Labs pending ASA/Plavix OOB F/U 2 weeks in my office. Problem List - Problems (1) PAD (peripheral artery disease) Code(s): I73.9 - PERIPHERAL VASCULAR DISEASE, UNSPECIFIED
[2017-02-25 08:56] LABS: HEMATOCRIT 39.2 % (32.4-45.2); HEMOGLOBIN 12.6 GM/dL (10.7-15.3); MCH 34.4 pg (25.7-33.7); MCHC 32.1 g/dl (32.0-36.0); MEAN PLT VOLUME 9.4 fl (7.5-11.1); PLATELET COUNT 213 K/MM3 (134-434); RBC 3.66 M/mm3 (3.60-5.2); RDW 15.1 % (11.6-15.6); WHITE BLOOD COUNT 17.3 K/mm3 (4.0-10.0)
[2017-02-25 09:17] LABS: ANION GAP 6 (8-16); BLOOD UREA NITROGEN 28 mg/dL (7-18); CALCIUM 8.4 mg/dL (8.5-10.1); CHLORIDE 97 mmol/L (98-107); CO2 31 mmol/L (21-32); CREATININE 0.9 mg/dL (0.55-1.02); GLUCOSE,RANDOM 150 mg/dL (74-106); POTASSIUM 4.7 mmol/L (3.5-5.1); SODIUM 134 mmol/L (136-145)
[2017-02-25] MEDS ORDERED: PT OWN MED DRAWER 7, Y5N ONE ×2 (09:59→22:16)
[2017-02-25] MEDS ORDERED: BROMFENAC SODIUM OS SCH ×2 (10:00)
[2017-02-25] MEDS: RANITIDINE HCL 150 MG TABLET (FP) PO SCH ×2 (10:03→22:18)
[2017-02-25] MEDS: LISINOPRIL 20 MG TABLET (FP) PO SCH (10:03)
[2017-02-25] MEDS: HEPARIN NA (PORCINE) 5,000 UNITS/ML 1ML VIAL SQ SCH ×2 (10:03→22:18)
[2017-02-25] MEDS: ASPIRIN 81 MG CHEWABLE TABLETS PO SCH (10:04)
[2017-02-25] MEDS: FUROSEMIDE 40 MG TABLET (FP) PO SCH (10:04)
[2017-02-25] MEDS: CLOPIDOGREL BISULFATE 75 MG TABLET (FP) PO SCH (10:04)
[2017-02-25] MEDS: VERAPAMIL HCL 180 MG E.R. TABLET (FP) PO SCH (10:04)
[2017-02-25] MEDS: GABAPENTIN 300 MG CAPSULE (FP) PO SCH ×4 (10:04→22:17)
[2017-02-25] MEDS: NICOTINE 21 MG/24 HOURS TOPICAL PATCH TD SCH (10:05)
[2017-02-25] MEDS: OFLOXACIN 0.3% OPHTHALMIC SOLUTION 5 ML BOTTLE OS SCH ×4 (10:05→22:21)
[2017-02-25] MEDS: prednisoLONE ACETATE 1% OPHTH SUSP 5 ML BOTTLE OS SCH ×4 (10:06→22:21)
[2017-02-25] MEDS: MUPIROCIN 2% TOPICAL OINTMENT 22 GM TUBE TP SCH ×2 (10:28→22:00)
[2017-02-25] MEDS: TIOTROPIUM BROMIDE 18 MCG/INH (DEVICE W/ 5 CAPSULES) IH SCH (10:28)
--- NOTE | 2017-02-25 11:49 | PN ---
Progress Note (short form) - Note Progress Note: Breathing continues to slowly improve. Currently receiving a BD TX. Slightly less congested cough with yellow sputum. Intake & Output 02/22/17 02/23/17 02/24/17 02/25/17 23:59 23:59 23:59 23:59 Intake Total 260 1100 1750 800 Output Total 50 Balance 260 1100 1700 800 Last Vital Signs Temp Pulse Resp BP Pulse Ox 98.1 F 62 18 142/68 100 02/25/17 08:00 02/25/17 10:29 02/25/17 08:00 02/25/17 08:00 02/25/17 10:29 Active Medications Acetaminophen (Tylenol -) 650 mg PO Q4H PRN PRN Reason: FEVER OR PAIN Albuterol Sulfate (Ventolin 0.083% Nebulizer Soln -) 1 amp NEB Q1H PRN PRN Reason: SHORT OF BREATH/WHEEZING Albuterol Sulfate (Ventolin 0.083% Nebulizer Soln -) 1 amp NEB Q4HWA [facility] Last Admin: 02/25/17 10:00 Dose: 1 amp Aspirin (Asa -) 81 mg PO DAILY [facility] Last Admin: 02/25/17 10:04 Dose: 81 mg Atorvastatin Calcium (Lipitor -) 20 mg PO HS [facility] Last Admin: 02/24/17 22:35 Dose: 20 mg Clopidogrel Bisulfate (Plavix -) 75 mg PO DAILY [facility] Last Admin: 02/25/17 10:04 Dose: 75 mg Fentanyl (Sublimaze Injection -) 50 mcg IVPUSH [id number] PRN PRN Reason: PAIN Last Admin: 02/24/17 21:35 Dose: 50 mcg Furosemide (Lasix -) 40 mg PO DAILY [facility] Last Admin: 02/25/17 10:04 Dose: 40 mg Gabapentin (Neurontin -) 600 mg PO QID [facility] Last Admin: 02/25/17 10:04 Dose: 600 mg Heparin Sodium (Porcine) (Heparin -) 5,000 unit SQ BID [facility] Last Admin: 02/25/17 10:03 Dose: 5,000 unit Lisinopril (Prinivil) 20 mg PO DAILY [facility] Last Admin: 02/25/17 10:03 Dose: 20 mg Methylprednisolone Sodium Succinate (Solu-Medrol -) 40 mg IVPUSH Q8H-IV [facility] Last Admin: 02/25/17 10:03 Dose: 40 mg Montelukast Sodium (Singulair -) 10 mg PO HS [facility] Last Admin: 02/24/17 22:35 Dose: 10 mg Mupirocin (Bactroban 2% Ointment -) 1 applic TP BID [facility] Last Admin: 02/25/17 10:28 Dose: 1 applic Nicotine (Nicoderm Patch -) 21 mg TD DAILY [facility] Last Admin: 02/25/17 10:05 Dose: 21 mg Non-Formulary Medication (Bromfenac Sodium [Bromfenac Sodium]) 1.7 ml OS DAILY [facility] Nystatin (Nystatin Oral Suspension -) 500,000 units PO Q6HPO [facility] Last Admin: 02/25/17 11:29 Dose: 500,000 units Ofloxacin (Ocuflox 0.3% Eye Drops -) 1 drop OS QID [facility] Last Admin: 02/25/17 10:05 Dose: 1 drop Ondansetron HCl (Zofran Injection) 4 mg IVPUSH Q6H PRN PRN Reason: NAUSEA AND/OR VOMITING Prednisolone Acetate (Pred Forte 1% -) 1 drop OS QID [facility] Last Admin: 02/25/17 10:06 Dose: 1 drop Ranitidine HCl (Zantac -) 150 mg PO BID [facility] Last Admin: 02/25/17 10:03 Dose: 150 mg Tiotropium [place] (Spiriva -) 1 puff IH DAILY [facility] Last Admin: 02/25/17 10:28 Dose: 1 puff Verapamil HCl (Calan Sr -) 180 mg PO DAILY [facility] Last Admin: 02/25/17 10:04 Dose: 180 mg Constitutional: Yes: Mildly tachypneic at rest Neck: Yes: Supple Cardiovascular: Yes: Regular Rate and Rhythm Respiratory: Yes: Cough, Diminished at the bases, improving mild expiratory wheeze, On Nasal O2 Gastrointestinal: Yes: Normal Bowel Sounds, Soft Edema: No Labs: Laboratory Results - last 24 hr 02/25/17 02/25/17 08:49 08:49 WBC 17.3 H D RBC 3.66 Hgb 12.6 Hct 39.2 MCV 107.0 H MCH 34.4 H MCHC 32.1 RDW 15.1 Plt Count 213 MPV 9.4 Sodium 134 L Potassium 4.7 Chloride 97 L Carbon Dioxide 31 D Anion Gap 6 L BUN 28 H Creatinine 0.9 D Random Glucose 150 H Calcium 8.4 L Problem List - Problems (1) S/P coronary artery stent placement Code(s): Z95.5 - PRESENCE OF CORONARY ANGIOPLASTY IMPLANT AND GRAFT (2) COPD exacerbation Code(s): J44.1 - CHRONIC OBSTRUCTIVE PULMONARY DISEASE W (ACUTE) EXACERBATION (3) Peripheral vascular disease Code(s): I73.9 - PERIPHERAL VASCULAR DISEASE, UNSPECIFIED (4) HTN (hypertension) Code(s): I10 - ESSENTIAL (PRIMARY) HYPERTENSION Qualifiers: Hypertension type: essential hypertension Qualified Code(s): I10 - Essential (primary) hypertension (5) Hyperlipemia, mixed Code(s): E78.2 - MIXED HYPERLIPIDEMIA Assessment/Plan Acute exacerbation of COPD 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
--- NOTE | 2017-02-25 12:38 | PN ---
Progress Note, Physician Chief Complaint: Events noted Vascular input noted. Post left femoral stent Denies chest pain. Complains of persistent cough and SOB History of Present Illness: Patient was seen and examined. Awake and alert. Chart was reviewed As outlined. Respiratory status improving Less cough and SOB - Current Medication List Current Medications: Active Medications Acetaminophen (Tylenol -) 650 mg PO Q4H PRN PRN Reason: FEVER OR PAIN Albuterol Sulfate (Ventolin 0.083% Nebulizer Soln -) 1 amp NEB Q1H PRN PRN Reason: SHORT OF BREATH/WHEEZING Albuterol Sulfate (Ventolin 0.083% Nebulizer Soln -) 1 amp NEB Q4HWA [facility] Last Admin: 02/25/17 10:00 Dose: 1 amp Aspirin (Asa -) 81 mg PO DAILY [facility] Last Admin: 02/25/17 10:04 Dose: 81 mg Atorvastatin Calcium (Lipitor -) 20 mg PO HS [facility] Last Admin: 02/24/17 22:35 Dose: 20 mg Clopidogrel Bisulfate (Plavix -) 75 mg PO DAILY [facility] Last Admin: 02/25/17 10:04 Dose: 75 mg Fentanyl (Sublimaze Injection -) 50 mcg IVPUSH [id number] PRN PRN Reason: PAIN Last Admin: 02/24/17 21:35 Dose: 50 mcg Furosemide (Lasix -) 40 mg PO DAILY [facility] Last Admin: 02/25/17 10:04 Dose: 40 mg Gabapentin (Neurontin -) 600 mg PO QID [facility] Last Admin: 02/25/17 10:04 Dose: 600 mg Heparin Sodium (Porcine) (Heparin -) 5,000 unit SQ BID [facility] Last Admin: 02/25/17 10:03 Dose: 5,000 unit Lisinopril (Prinivil) 20 mg PO DAILY [facility] Last Admin: 02/25/17 10:03 Dose: 20 mg Methylprednisolone Sodium Succinate (Solu-Medrol -) 40 mg IVPUSH Q8H-IV [facility] Last Admin: 02/25/17 10:03 Dose: 40 mg Montelukast Sodium (Singulair -) 10 mg PO HS [facility] Last Admin: 02/24/17 22:35 Dose: 10 mg Mupirocin (Bactroban 2% Ointment -) 1 applic TP BID [facility] Last Admin: 02/25/17 10:28 Dose: 1 applic Nicotine (Nicoderm Patch -) 21 mg TD DAILY [facility] Last Admin: 02/25/17 10:05 Dose: 21 mg Non-Formulary Medication (Bromfenac Sodium [Bromfenac Sodium]) 1.7 ml OS DAILY [facility] Nystatin (Nystatin Oral Suspension -) 500,000 units PO Q6HPO [facility] Last Admin: 02/25/17 11:29 Dose: 500,000 units Ofloxacin (Ocuflox 0.3% Eye Drops -) 1 drop OS QID [facility] Last Admin: 02/25/17 10:05 Dose: 1 drop Ondansetron HCl (Zofran Injection) 4 mg IVPUSH Q6H PRN PRN Reason: NAUSEA AND/OR VOMITING Prednisolone Acetate (Pred Forte 1% -) 1 drop OS QID [facility] Last Admin: 02/25/17 10:06 Dose: 1 drop Ranitidine HCl (Zantac -) 150 mg PO BID [facility] Last Admin: 02/25/17 10:03 Dose: 150 mg Tiotropium [place] (Spiriva -) 1 puff IH DAILY [facility] Last Admin: 02/25/17 10:28 Dose: 1 puff Verapamil HCl (Calan Sr -) 180 mg PO DAILY [facility] Last Admin: 02/25/17 10:04 Dose: 180 mg - Objective Vital Signs: Vital Signs Temperature 98.1 F 02/25/17 08:00 Pulse Rate 62 02/25/17 10:29 Respiratory Rate 18 02/25/17 08:00 Blood Pressure 142/68 02/25/17 08:00 O2 Sat by Pulse Oximetry (%) 100 02/25/17 10:29 Eyes: Yes: PERRL Neck: Yes: Supple Cardiovascular: Yes: Regular Rate and Rhythm, S1, S2 Respiratory: Yes: Diminished Gastrointestinal: Yes: Normal Bowel Sounds, Soft. No: Tenderness Edema: No Additional Findings/Remarks: Review of Systems Constitutional: Denies: Chills or Fever Cardiovascular: denies: chest pain, palpitation (+) SOB Respiratory: (+) cough, (-) sputum and hemoptysis Gastrointestinal: Denies: Nausea, Vomiting, Diarrhea, Constipation, abdominal pain, melena, hematemesis Genitourinary: No symptoms reported Neurology: No seizures or syncope Labs: CBC, BMP 02/25/17 08:49 02/25/17 08:49 Problem List - Problems (1) CAD (coronary artery disease) Code(s): I25.10 - ATHSCL HEART DISEASE OF [place] CORONARY ARTERY W/O ANG PCTRS Qualifiers: Coronary Disease-Associated Artery/Lesion type: [place] artery [place] vs. transplanted heart: [place] heart Associated angina: without angina Qualified Code(s): I25.10 - Atherosclerotic heart disease of [place] coronary artery without angina pectoris (2) COPD exacerbation Code(s): J44.1 - CHRONIC OBSTRUCTIVE PULMONARY DISEASE W (ACUTE) EXACERBATION (3) S/P coronary artery stent placement Code(s): Z95.5 - PRESENCE OF CORONARY ANGIOPLASTY IMPLANT AND GRAFT (4) Peripheral vascular disease Code(s): I73.9 - PERIPHERAL VASCULAR DISEASE, UNSPECIFIED (5) HTN (hypertension) Code(s): I10 - ESSENTIAL (PRIMARY) HYPERTENSION Qualifiers: Hypertension type: essential hypertension Qualified Code(s): I10 - Essential (primary) hypertension (6) Hyperlipemia, mixed Code(s): E78.2 - MIXED HYPERLIPIDEMIA (7) PAD (peripheral artery disease) Code(s): I73.9 - PERIPHERAL VASCULAR DISEASE, UNSPECIFIED Assessment/Plan 1. Acute exacerbation of COPD 2. 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 CAD post PCI/stent, angina pectoris 4. HTN 5. Hyperlipidemia PLAN: 1. Bronchodilator, O2, steroid taper and empiric antibiotic coverage 2. Continue ASA 81 qd, Plavix 75 mg once a day and Lipitor 20 qd 3. Continue Calan SR 180 qd as tolerated. Increase Prinivil to 20 mg once a day 4. GI and DVT prophylaxis 5. Vascular surgery input noted. Post op follow up Further plans are to follow Artie Alvarado MD
--- NOTE | 2017-02-25 13:08 | PN ---
Progress Note (short form) - Note Progress Note: POD #1 - s/p LLE angiogram/angioplasty under MAC. VSS. Pt. doing well, sitting up comfortably in bed. No complaints. No anesthetic complications noted. Continue current care.
--- NOTE | 2017-02-25 13:30 | OP ---
DATE OF OPERATION: 02/24/2017 SURGEON: Abrahan Morgan MD PROCEDURE: Revascularization of left femoral artery with stent and angioplasty. PREOPERATIVE DIAGNOSIS: Ischemic left leg with occluded femoral artery. POSTOPERATIVE DIAGNOSIS: Ischemic left leg with occluded femoral artery. ANESTHESIA: Fractional. ANESTHESIOLOGIST: France Stevenson MD OPERATIVE FINDINGS: The distal aorta, iliac arteries, femoral arteries were calcified but patent. There was a moderate stenosis with ulcerative plaque in the left common iliac artery. The left superficial femoral artery was occluded at its origin. There was a stent present in the [id number] superficial femoral artery which was occluded. There was reconstitution of flow in the popliteal artery approximately 1 cm distal to the end of the stent. The popliteal artery was patent with the origin of at least 2 tibial vessels. There was no continuous flow in the calf, with multiple collaterals and a distal tibial artery which appeared to be the peroneal extending down to the ankle. OPERATIVE PROCEDURE: Following routine patient identification with site and side verification, intravenous sedation was established. Both groins were prepped with ChloraPrep. Using real-time duplex imaging, the right femoral artery was identified. It was found to be heavily calcified but patent. Lidocaine 1% was infiltrated in the skin overlying the artery, and then, under ultrasound guidance, the artery was cannulated with a micropuncture needle. A wire was passed proximal under fluoroscopic guidance, and a 5-Italian catheter exchanged for the needle. An angle-tip Glidewire was then advanced under fluoroscopic guidance through the catheter into the abdominal aorta. A 5-Italian sheath was exchanged over the wire. An Omni Flush catheter was passed over the wire, and angiography of the abdominal aorta and iliac arteries was obtained. The wire was then re-introduced into the left iliac artery and advanced distally to the femoral. The catheter was advanced over the wire to this level. Repeat imaging of the left femoral artery was obtained, and then, with repositioning of the C-arm, the distal femoral, popliteal, and tibial vessels. A stiff wire was passed through the catheter, and the catheter was removed. The sheath was removed. A long 6-Italian sheath was advanced over the aortic bifurcation into the left femoral artery. The patient was systemically heparinized. An angle-tip wire and catheter were then advanced under road mapping technique into the superficial femoral artery. The wire passed distally in the subintimal plane to the level of the stent but could not be advanced into the lumen of the stent. The wire continuously moved into the subintimal plane around the stent. Therefore, the thigh was exposed and prepped with ChloraPrep. Under fluoroscopic guidance, a micropuncture needle was advanced through the skin and into the femoral artery stent, and then, a fine wire was advanced proximally into the stent. The needle was exchanged for a 0.018 catheter, and the wire was exchanged for a long 0.018 wire which was advanced up to the level of the femoral artery. A snare was then exchanged through the sheath and used to grab the end of the wire which was brought out through the right femoral sheath. Catheter was passed over the wire from the right to the left, and then, the wire was removed, leaving the catheter within the stent. A new 0.018 wire was now easily passed distally to the level of the popliteal artery and the catheter advanced over it. Contrast injected through the catheter confirmed placement in the distal popliteal artery. The wire was re-introduced. A balloon angioplasty around the wire was then performed with 4-, 5-, and 6-mm balloons. Repeat imaging revealed patent femoral artery with irregularity above and below the level of the stent. Attempt to advance the wire distally into the tibial arteries was not successful. Viabahn stents were then used to reline the femoral artery from the origin to the popliteal artery. A 5 x 215 mm Viabahn was placed from the popliteal artery proximally and was post dilated with a 5-mm balloon. A 6-mm x 150-mm stent was then placed up to the origin of the superficial femoral artery with overlapping with the 5-mm stent. This was post dilated with a 6-mm balloon. Completion imaging revealed patent femoral artery with outflow into the tibial arteries proximally. Improved runoff was seen with brisk filling of the ankle vessels. The sheath was then pulled over the aortic bifurcation over a wire. The sheath was removed, and the arteriotomy was closed with a StarClose device. Sterile dressing was applied, and the patient was taken to the recovery room in stable condition. Brian [id number]
--- NOTE | 2017-02-25 16:32 | EKG ---
Test Reason : Blood Pressure : / mmHG Vent. Rate : 079 BPM Atrial Rate : 079 BPM P-R Int : 126 ms QRS Dur : 126 ms QT Int : 438 ms P-R-T Axes : 043 -13 111 degrees QTc Int : 502 ms POOR DATA QUALITY, INTERPRETATION MAY BE ADVERSELY AFFECTED SINUS RHYTHM WITH PREMATURE ATRIAL COMPLEXES LEFT ATRIAL ENLARGEMENT LEFT BUNDLE BRANCH BLOCK ABNORMAL ECG WHEN COMPARED WITH ECG OF 04-APR-2014 12:33, PREMATURE ATRIAL COMPLEXES ARE NOW PRESENT LEFT BUNDLE BRANCH BLOCK IS NOW PRESENT Confirmed by EMIR HECTOR MD ([id number]) on 02/25/2017 4:32:30 PM Referred By: Confirmed By:EMIR HECTOR MD
--- NOTE | 2017-02-25 20:16 | PN ---
Physical Exam: SUBJECTIVE: Patient seen and examined. She feels wll after her procedure. She has lost her voice. OBJECTIVE: Vital Signs Period Temp Pulse Resp BP Sys/Olguin Pulse Ox Last 24 Hr 97.8 F-98.9 F 60-81 13-20 109-157/50-89 96-100 PE Neuro: alert, awake, cn 2-12intact Pulm: diminished, mild wheeze, +NC, + dysphonia CV: s1 s2 rrr Abd: s nt nd + bs Ext: RLE dressing cdi, warm, RLE mild edema, no bleeding from L groin Laboratory Results - last 24 hr 02/25/17 02/25/17 08:49 08:49 WBC 17.3 H D RBC 3.66 Hgb 12.6 Hct 39.2 MCV 107.0 H MCH 34.4 H MCHC 32.1 RDW 15.1 Plt Count 213 MPV 9.4 Sodium 134 L Potassium 4.7 Chloride 97 L Carbon Dioxide 31 D Anion Gap 6 L BUN 28 H Creatinine 0.9 D Random Glucose 150 H Calcium 8.4 L Active Medications Generic Name Dose Route Start Last Admin Trade Name Freq PRN Reason Stop Dose Admin Acetaminophen 650 mg 02/24/17 20:38 Tylenol - PO Q4H PRN FEVER OR PAIN Albuterol Sulfate 1 amp 02/24/17 21:05 Ventolin 0.083% Nebulizer Soln - NEB Q1H PRN SHORT OF BREATH/WHEEZING Albuterol Sulfate 1 amp 02/24/17 22:00 02/25/17 18:00 Ventolin 0.083% Nebulizer Soln - NEB 1 amp Q4HWA JULIET Administration Aspirin 81 mg 02/25/17 10:00 02/25/17 10:04 Asa - PO 81 mg DAILY JULIET Administration Atorvastatin Calcium 20 mg 02/24/17 22:00 02/24/17 22:35 Lipitor - PO 20 mg HS JULIET Administration Clopidogrel Bisulfate 75 mg 02/25/17 10:00 02/25/17 10:04 Plavix - PO 75 mg DAILY JULIET Administration Fentanyl 50 mcg 02/24/17 20:35 02/24/17 21:35 Sublimaze Injection - IVPUSH 50 mcg [id number] PRN Administration PAIN Furosemide 40 mg 02/25/17 10:00 02/25/17 10:04 Lasix - PO 40 mg DAILY JULIET Administration Gabapentin 600 mg 02/24/17 22:00 02/25/17 17:07 Neurontin - PO 600 mg QID JULIET Administration Heparin Sodium (Porcine) 5,000 unit 02/25/17 10:00 02/25/17 10:03 Heparin - SQ 5,000 unit BID JULIET Administration Lisinopril 20 mg 02/25/17 10:00 02/25/17 10:03 Prinivil PO 20 mg DAILY JULIET Administration Methylprednisolone Sodium Succinate 40 mg 02/25/17 02:00 02/25/17 17:07 Solu-Medrol - IVPUSH 40 mg Q8H-IV JULIET Administration Montelukast Sodium 10 mg 02/24/17 22:00 02/24/17 22:35 Singulair - PO 10 mg HS JULIET Administration Mupirocin 1 applic 02/24/17 22:00 02/25/17 10:28 Bactroban 2% Ointment - TP 1 applic BID JULIET Administration Nicotine 21 mg 02/25/17 10:00 02/25/17 10:05 Nicoderm Patch - TD 21 mg DAILY JULIET Administration Non-Formulary Medication 1.7 ml 02/25/17 10:00 Bromfenac Sodium [Bromfenac Sodium] OS DAILY JULIET Nystatin 500,000 units 02/25/17 00:00 02/25/17 17:07 Nystatin Oral Suspension - PO 500,000 units Q6HPO JULIET Administration Ofloxacin 1 drop 02/24/17 22:00 02/25/17 17:12 Ocuflox 0.3% Eye Drops - OS 1 drop QID JULIET Administration Ondansetron HCl 4 mg 02/24/17 20:35 Zofran Injection IVPUSH Q6H PRN NAUSEA AND/OR VOMITING Prednisolone Acetate 1 drop 02/24/17 22:00 02/25/17 17:13 Pred Forte 1% - OS 1 drop QID JULIET Administration Ranitidine HCl 150 mg 02/24/17 22:00 02/25/17 10:03 Zantac - PO 150 mg BID JULIET Administration Tiotropium [place] 1 puff 02/25/17 10:00 02/25/17 10:28 Spiriva - IH 1 puff DAILY JULIET Administration Verapamil HCl 180 mg 02/25/17 10:00 02/25/17 10:04 Calan Sr - PO 180 mg DAILY JULIET Administration Assessment: 66 year old female with a PMH significant for HTN, HLD, CAD s/p stent, PVD, and COPD. Admitted for COPD exacerbation. Plan: 1. COPD exacerbation - Continue solumedrol 4mg q8 - Continue Advair, Spiriva, Singulair, albuterol nebs PRN - Compelted azithromycin course PAD - s/p MANAGER QUANTITATIVE/stent to left femoral arterys/p LLE angiogram/angioplasty 02/24 - Continue gabapentin CAD s/p stent - Continue ASA, Plavix, Lipitor HTN - Verapamil to 180mg daily - Increased Lisinopril 20mg daily - Continue Lasix HLD - Continue Lipitor DVT prophylaxis: subq heparin; oob; ambulation Visit type - Emergency Visit Emergency Visit: Yes ED Registration Date: 02/19/17 Care time: The patient presented to the Emergency Department on the above date and was hospitalized for further evaluation of their emergent condition. - New Patient This patient is new to me today: Yes Date on this admission: 02/26/17 - Critical Care Critical Care patient: No
[2017-02-25] MEDS: ATORVASTATIN CA 20 MG TABLET (FP) PO SCH (22:18)
[2017-02-25] MEDS: MONTELUKAST NA 10 MG TABLET PO SCH (22:18)
[2017-02-26] MEDS: NYSTATIN 500,000 UNITS/5 ML SUSPENSION PO SCH ×4 (00:08→17:30)
[2017-02-26] MEDS: methylPREDNISolone NA SUCC 40 MG/1 ML VIAL IVPUSH SCH ×3 (01:26→21:52)
[2017-02-26] MEDS: ALBUTEROL SO4 0.083% IH SOL 2.5 MG/3 ML VIAL.NEB. NEB SCH ×5 (06:57→21:56)
[2017-02-26] MEDS ORDERED: PT OWN MED DRAWER 7, Y5N ONE (09:22)
[2017-02-26] MEDS: RANITIDINE HCL 150 MG TABLET (FP) PO SCH ×2 (09:24→21:51)
[2017-02-26] MEDS: CLOPIDOGREL BISULFATE 75 MG TABLET (FP) PO SCH (09:24)
[2017-02-26] MEDS: FUROSEMIDE 40 MG TABLET (FP) PO SCH (09:24)
[2017-02-26] MEDS: ASPIRIN 81 MG CHEWABLE TABLETS PO SCH (09:24)
[2017-02-26] MEDS: NICOTINE 21 MG/24 HOURS TOPICAL PATCH TD SCH (09:24)
[2017-02-26] MEDS: VERAPAMIL HCL 180 MG E.R. TABLET (FP) PO SCH (09:24)
[2017-02-26] MEDS: GABAPENTIN 300 MG CAPSULE (FP) PO SCH ×4 (09:24→21:52)
[2017-02-26] MEDS: LISINOPRIL 20 MG TABLET (FP) PO SCH (09:24)
[2017-02-26] MEDS: prednisoLONE ACETATE 1% OPHTH SUSP 5 ML BOTTLE OS SCH ×4 (09:25→21:54)
[2017-02-26] MEDS: HEPARIN NA (PORCINE) 5,000 UNITS/ML 1ML VIAL SQ SCH ×2 (09:25→21:52)
[2017-02-26] MEDS: OFLOXACIN 0.3% OPHTHALMIC SOLUTION 5 ML BOTTLE OS SCH ×4 (09:26→21:53)
[2017-02-26] MEDS: MUPIROCIN 2% TOPICAL OINTMENT 22 GM TUBE TP SCH ×2 (09:30→21:52)
--- NOTE | 2017-02-26 11:38 | PN ---
Progress Note, Physician History of Present Illness: Dyspnea and cough productive of yellow sputum improved. BP control improved. 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 - Current Medication List Current Medications: Active Medications Acetaminophen (Tylenol -) 650 mg PO Q4H PRN PRN Reason: FEVER OR PAIN Albuterol Sulfate (Ventolin 0.083% Nebulizer Soln -) 1 amp NEB Q1H PRN PRN Reason: SHORT OF BREATH/WHEEZING Albuterol Sulfate (Ventolin 0.083% Nebulizer Soln -) 1 amp NEB Q4HWA [facility] Last Admin: 02/26/17 06:57 Dose: 1 amp Aspirin (Asa -) 81 mg PO DAILY [facility] Last Admin: 02/26/17 09:24 Dose: 81 mg Atorvastatin Calcium (Lipitor -) 20 mg PO HS [facility] Last Admin: 02/25/17 22:18 Dose: 20 mg Clopidogrel Bisulfate (Plavix -) 75 mg PO DAILY [facility] Last Admin: 02/26/17 09:24 Dose: 75 mg Fentanyl (Sublimaze Injection -) 50 mcg IVPUSH [id number] PRN PRN Reason: PAIN Last Admin: 02/24/17 21:35 Dose: 50 mcg Furosemide (Lasix -) 40 mg PO DAILY [facility] Last Admin: 02/26/17 09:24 Dose: 40 mg Gabapentin (Neurontin -) 600 mg PO QID [facility] Last Admin: 02/26/17 09:24 Dose: 600 mg Heparin Sodium (Porcine) (Heparin -) 5,000 unit SQ BID [facility] Last Admin: 02/26/17 09:25 Dose: 5,000 unit Lisinopril (Prinivil) 20 mg PO DAILY [facility] Last Admin: 02/26/17 09:24 Dose: 20 mg Methylprednisolone Sodium Succinate (Solu-Medrol -) 40 mg IVPUSH Q8H-IV [facility] Last Admin: 02/26/17 09:24 Dose: 40 mg Montelukast Sodium (Singulair -) 10 mg PO HS [facility] Last Admin: 02/25/17 22:18 Dose: 10 mg Mupirocin (Bactroban 2% Ointment -) 1 applic TP BID [facility] Last Admin: 02/26/17 09:30 Dose: 1 applic Nicotine (Nicoderm Patch -) 21 mg TD DAILY [facility] Last Admin: 02/26/17 09:24 Dose: 21 mg Non-Formulary Medication (Bromfenac Sodium [Bromfenac Sodium]) 1.7 ml OS DAILY [facility] Nystatin (Nystatin Oral Suspension -) 500,000 units PO Q6HPO [facility] Last Admin: 02/26/17 05:43 Dose: 500,000 units Ofloxacin (Ocuflox 0.3% Eye Drops -) 1 drop OS QID [facility] Last Admin: 02/26/17 09:26 Dose: 1 drop Ondansetron HCl (Zofran Injection) 4 mg IVPUSH Q6H PRN PRN Reason: NAUSEA AND/OR VOMITING Prednisolone Acetate (Pred Forte 1% -) 1 drop OS QID [facility] Last Admin: 02/26/17 09:25 Dose: 1 drop Ranitidine HCl (Zantac -) 150 mg PO BID [facility] Last Admin: 02/26/17 09:24 Dose: 150 mg Tiotropium [place] (Spiriva -) 1 puff IH DAILY [facility] Last Admin: 02/25/17 10:28 Dose: 1 puff Verapamil HCl (Calan Sr -) 180 mg PO DAILY [facility] Last Admin: 02/26/17 09:24 Dose: 180 mg - Objective Vital Signs: Vital Signs Temperature 98.3 F 02/26/17 06:22 Pulse Rate 63 02/26/17 06:22 Respiratory Rate 16 02/26/17 06:22 Blood Pressure 140/59 02/26/17 06:22 O2 Sat by Pulse Oximetry (%) 100 02/25/17 10:29 Constitutional: Yes: No Distress, Calm, Thin Neck: Yes: Supple Cardiovascular: Yes: Regular Rate and Rhythm Respiratory: Yes: Regular, Diminished, On Nasal O2 Gastrointestinal: Yes: Normal Bowel Sounds, Soft Edema: No Labs: CBC, BMP 02/25/17 08:49 02/25/17 08:49 INR, PTT INR 0.97 (0.82-1.09) 02/19/17 07:00 Problem List - Problems (1) S/P coronary artery stent placement Code(s): Z95.5 - PRESENCE OF CORONARY ANGIOPLASTY IMPLANT AND GRAFT (2) COPD exacerbation Code(s): J44.1 - CHRONIC OBSTRUCTIVE PULMONARY DISEASE W (ACUTE) EXACERBATION (3) Peripheral vascular disease Code(s): I73.9 - PERIPHERAL VASCULAR DISEASE, UNSPECIFIED (4) HTN (hypertension) Code(s): I10 - ESSENTIAL (PRIMARY) HYPERTENSION Qualifiers: Hypertension type: essential hypertension Qualified Code(s): I10 - Essential (primary) hypertension (5) Hyperlipemia, mixed Code(s): E78.2 - MIXED HYPERLIPIDEMIA (6) Status post peripheral artery angioplasty with insertion of stent Code(s): Z95.820 - PERIPHERAL VASCULAR ANGIOPLASTY STATUS W IMPLANTS AND GRAFTS Assessment/Plan 02/22/2017 Echo: Normal LV size and fxn, mild LAE, mild MR, TR 1. Acute exacerbation of COPD slowly resolving 2. 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 CAD post PCI/stent, angina pectoris 4. HTN, BP improved 5. Hyperlipidemia PLAN: 1. Bronchodilator, O2, IV steroid taper, Singulair and empiric antibiotic coverage 2. Continue ASA 81 qd, Plavix 75 qd, Lasix 40 qd and Lipitor 20 qd 3. Continue Calan SR 180 qd and lisinopril 20 qd as tolerated 4. GI and DVT prophylaxis 5. D/c planning
[2017-02-26] MEDS: TIOTROPIUM BROMIDE 18 MCG/INH (DEVICE W/ 5 CAPSULES) IH SCH (12:33)
--- NOTE | 2017-02-26 14:05 | PN ---
Physical Exam: SUBJECTIVE: Patient seen and examined. She feels the nebs are helping her, cough with yellow sputum OBJECTIVE: Vital Signs Period Temp Pulse Resp BP Sys/Olguin Pulse Ox Last 24 Hr 98.3 F-98.6 F 63-77 16-20 135-157/59-66 93 PE Neuro: alert, awake, cn 2-12 intact Pulm: diminished, but clearing, no wheezing, +NC, + dysphonia- improving CV: s1 s2 rrr Abd: s nt nd + bs Ext: RLE dressing cdi, warm, RLE mild edema, no bleeding from L groin Active Medications Generic Name Dose Route Start Last Admin Trade Name Freq PRN Reason Stop Dose Admin Acetaminophen 650 mg 02/24/17 20:38 Tylenol - PO Q4H PRN FEVER OR PAIN Albuterol Sulfate 1 amp 02/24/17 21:05 Ventolin 0.083% Nebulizer Soln - NEB Q1H PRN SHORT OF BREATH/WHEEZING Albuterol Sulfate 1 amp 02/24/17 22:00 02/26/17 10:45 Ventolin 0.083% Nebulizer Soln - NEB 1 amp Q4HWA JULIET Administration Aspirin 81 mg 02/25/17 10:00 02/26/17 09:24 Asa - PO 81 mg DAILY JULIET Administration Atorvastatin Calcium 20 mg 02/24/17 22:00 02/25/17 22:18 Lipitor - PO 20 mg HS JULIET Administration Clopidogrel Bisulfate 75 mg 02/25/17 10:00 02/26/17 09:24 Plavix - PO 75 mg DAILY JULIET Administration Fentanyl 50 mcg 02/24/17 20:35 02/24/17 21:35 Sublimaze Injection - IVPUSH 50 mcg [id number] PRN Administration PAIN Furosemide 40 mg 02/25/17 10:00 02/26/17 09:24 Lasix - PO 40 mg DAILY JULIET Administration Gabapentin 600 mg 02/24/17 22:00 02/26/17 09:24 Neurontin - PO 600 mg QID JULIET Administration Heparin Sodium (Porcine) 5,000 unit 02/25/17 10:00 02/26/17 09:25 Heparin - SQ 5,000 unit BID JULIET Administration Lisinopril 20 mg 02/25/17 10:00 02/26/17 09:24 Prinivil PO 20 mg DAILY JULIET Administration Montelukast Sodium 10 mg 02/24/17 22:00 02/25/17 22:18 Singulair - PO 10 mg HS JULIET Administration Mupirocin 1 applic 02/24/17 22:00 02/26/17 09:30 Bactroban 2% Ointment - TP 1 applic BID JULIET Administration Nicotine 21 mg 02/25/17 10:00 02/26/17 09:24 Nicoderm Patch - TD 21 mg DAILY JULIET Administration Non-Formulary Medication 1.7 ml 02/25/17 10:00 Bromfenac Sodium [Bromfenac Sodium] OS DAILY JULIET Nystatin 500,000 units 02/25/17 00:00 02/26/17 12:12 Nystatin Oral Suspension - PO 500,000 units Q6HPO JULIET Administration Ofloxacin 1 drop 02/24/17 22:00 02/26/17 09:26 Ocuflox 0.3% Eye Drops - OS 1 drop QID JULIET Administration Ondansetron HCl 4 mg 02/24/17 20:35 Zofran Injection IVPUSH Q6H PRN NAUSEA AND/OR VOMITING Prednisolone Acetate 1 drop 02/24/17 22:00 02/26/17 09:25 Pred Forte 1% - OS 1 drop QID JULIET Administration Ranitidine HCl 150 mg 02/24/17 22:00 02/26/17 09:24 Zantac - PO 150 mg BID JULIET Administration Tiotropium [place] 1 puff 02/25/17 10:00 02/26/17 12:33 Spiriva - IH 1 puff DAILY JULIET Administration Verapamil HCl 180 mg 02/25/17 10:00 02/26/17 09:24 Calan Sr - PO 180 mg DAILY JULIET Administration Assessment: 66 year old female with a PMH significant for HTN, HLD, CAD s/p stent, PVD, and COPD. Admitted for COPD exacerbation. Plan: 1. COPD exacerbation - Taper solumedrol 40mg BID - Continue Advair, Spiriva, Singulair, albuterol nebs PRN - Completed azithromycin course 2. 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 CAD s/p stent - Continue ASA, Plavix, Lipitor 4. HTN - Verapamil to 180mg daily - Increased Lisinopril 20mg daily - Continue Lasix 5. HLD - Continue Lipitor 6. DVT prophylaxis: subq heparin; oob; ambulation Visit type - Emergency Visit Emergency Visit: Yes ED Registration Date: 02/19/17 Care time: The patient presented to the Emergency Department on the above date and was hospitalized for further evaluation of their emergent condition. - New Patient This patient is new to me today: No - Critical Care Critical Care patient: No
[2017-02-26 14:38] LABS: BASO % 0.1 % (0-2.0); HEMATOCRIT 38.7 % (32.4-45.2); HEMOGLOBIN 12.8 GM/dL (10.7-15.3); LYMPH % 1.8 % (8-40); MCH 35.1 pg (25.7-33.7); MCHC 33.1 g/dl (32.0-36.0); MEAN CELL VOLUME 106.1 fl (80-96); MEAN PLT VOLUME 9.4 fl (7.5-11.1); MONO % 4.9 % (3.8-10.2); NEUT % 93.2 % (42.8-82.8); PLATELET COUNT 192 K/MM3 (134-434); RBC 3.65 M/mm3 (3.60-5.2); RDW 14.9 % (11.6-15.6); WHITE BLOOD COUNT 14.6 K/mm3 (4.0-10.0)
--- NOTE | 2017-02-26 14:53 | PN ---
Progress Note, Physician History of Present Illness: PULMONARY ALERT.LESS CONGESTED,LESS COUGH - Current Medication List Current Medications: Active Medications Acetaminophen (Tylenol -) 650 mg PO Q4H PRN PRN Reason: FEVER OR PAIN Albuterol Sulfate (Ventolin 0.083% Nebulizer Soln -) 1 amp NEB Q1H PRN PRN Reason: SHORT OF BREATH/WHEEZING Albuterol Sulfate (Ventolin 0.083% Nebulizer Soln -) 1 amp NEB Q4HWA [facility] Last Admin: 02/26/17 10:45 Dose: 1 amp Aspirin (Asa -) 81 mg PO DAILY [facility] Last Admin: 02/26/17 09:24 Dose: 81 mg Atorvastatin Calcium (Lipitor -) 20 mg PO HS [facility] Last Admin: 02/25/17 22:18 Dose: 20 mg Clopidogrel Bisulfate (Plavix -) 75 mg PO DAILY [facility] Last Admin: 02/26/17 09:24 Dose: 75 mg Fentanyl (Sublimaze Injection -) 50 mcg IVPUSH [id number] PRN PRN Reason: PAIN Last Admin: 02/24/17 21:35 Dose: 50 mcg Furosemide (Lasix -) 40 mg PO DAILY [facility] Last Admin: 02/26/17 09:24 Dose: 40 mg Gabapentin (Neurontin -) 600 mg PO QID [facility] Last Admin: 02/26/17 14:32 Dose: 600 mg Guaifenesin (Mucinex Dm -) 1 tablet PO BID [facility] Heparin Sodium (Porcine) (Heparin -) 5,000 unit SQ BID [facility] Last Admin: 02/26/17 09:25 Dose: 5,000 unit Lisinopril (Prinivil) 20 mg PO DAILY [facility] Last Admin: 02/26/17 09:24 Dose: 20 mg Methylprednisolone Sodium Succinate (Solu-Medrol -) 40 mg IVPUSH BID [facility] Montelukast Sodium (Singulair -) 10 mg PO HS [facility] Last Admin: 02/25/17 22:18 Dose: 10 mg Mupirocin (Bactroban 2% Ointment -) 1 applic TP BID [facility] Last Admin: 02/26/17 09:30 Dose: 1 applic Nicotine (Nicoderm Patch -) 21 mg TD DAILY [facility] Last Admin: 02/26/17 09:24 Dose: 21 mg Non-Formulary Medication (Bromfenac Sodium [Bromfenac Sodium]) 1.7 ml OS DAILY [facility] Nystatin (Nystatin Oral Suspension -) 500,000 units PO Q6HPO [facility] Last Admin: 02/26/17 12:12 Dose: 500,000 units Ofloxacin (Ocuflox 0.3% Eye Drops -) 1 drop OS QID [facility] Last Admin: 02/26/17 14:33 Dose: 1 drop Ondansetron HCl (Zofran Injection) 4 mg IVPUSH Q6H PRN PRN Reason: NAUSEA AND/OR VOMITING Prednisolone Acetate (Pred Forte 1% -) 1 drop OS QID [facility] Last Admin: 02/26/17 14:33 Dose: 1 drop Ranitidine HCl (Zantac -) 150 mg PO BID [facility] Last Admin: 02/26/17 09:24 Dose: 150 mg Tiotropium [place] (Spiriva -) 1 puff IH DAILY [facility] Last Admin: 02/26/17 12:33 Dose: 1 puff Verapamil HCl (Calan Sr -) 180 mg PO DAILY [facility] Last Admin: 02/26/17 09:24 Dose: 180 mg - Objective Vital Signs: Vital Signs Temperature 98.6 F 02/26/17 10:00 Pulse Rate 77 02/26/17 10:00 Respiratory Rate 20 02/26/17 10:00 Blood Pressure 157/63 02/26/17 10:00 O2 Sat by Pulse Oximetry (%) 93 L 02/26/17 09:00 Constitutional: Yes: Well Nourished, Calm Eyes: Yes: WNL HENT: Yes: WNL Neck: Yes: WNL Cardiovascular: Yes: Regular Rate and Rhythm, S1, S2 Respiratory: Yes: Rhonchi (SCATTERED LORRAINE RHONCHI) Gastrointestinal: Yes: Normal Bowel Sounds, Soft Extremities: Yes: WNL Edema: No Assessment/Plan Problem List - Problems (1) S/P coronary artery stent placement Code(s): Z95.5 - PRESENCE OF CORONARY ANGIOPLASTY IMPLANT AND GRAFT (2) COPD exacerbation Code(s): J44.1 - CHRONIC OBSTRUCTIVE PULMONARY DISEASE W (ACUTE) EXACERBATION (3) Peripheral vascular disease Code(s): I73.9 - PERIPHERAL VASCULAR DISEASE, UNSPECIFIED (4) HTN (hypertension) Code(s): I10 - ESSENTIAL (PRIMARY) HYPERTENSION Qualifiers: Hypertension type: essential hypertension Qualified Code(s): I10 - Essential (primary) hypertension (5) Hyperlipemia, mixed Code(s): E78.2 - MIXED HYPERLIPIDEMIA Assessment/Plan Acute exacerbation of COPD PAD 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
[2017-02-26 14:59] LABS: ANION GAP 10 (8-16); BLOOD UREA NITROGEN 39 mg/dL (7-18); CALCIUM 8.2 mg/dL (8.5-10.1); CHLORIDE 95 mmol/L (98-107); CO2 28 mmol/L (21-32); GLUCOSE,RANDOM 261 mg/dL (74-106); POTASSIUM 4.5 mmol/L (3.5-5.1); SODIUM 133 mmol/L (136-145)
[2017-02-26] MEDS: guaiFENesin/D-METHORPHAN HB 1 EACH TAB.ER.12H PO SCH (21:51)
[2017-02-26] MEDS: ATORVASTATIN CA 20 MG TABLET (FP) PO SCH (21:51)
[2017-02-26] MEDS: MONTELUKAST NA 10 MG TABLET PO SCH (21:51)
[2017-02-27] MEDS: NYSTATIN 500,000 UNITS/5 ML SUSPENSION PO SCH ×4 (01:00→17:36)
[2017-02-27] MEDS: ALBUTEROL SO4 0.083% IH SOL 2.5 MG/3 ML VIAL.NEB. NEB PRN (02:17)
[2017-02-27] MEDS: ALBUTEROL SO4 0.083% IH SOL 2.5 MG/3 ML VIAL.NEB. NEB SCH ×5 (06:35→22:28)
[2017-02-27 07:42] LABS: HEMATOCRIT 38.1 % (32.4-45.2); HEMOGLOBIN 12.6 GM/dL (10.7-15.3); MCH 35.4 pg (25.7-33.7); MCHC 33.2 g/dl (32.0-36.0); MEAN CELL VOLUME 106.6 fl (80-96); MEAN PLT VOLUME 9.5 fl (7.5-11.1); PLATELET COUNT 188 K/MM3 (134-434); RBC 3.57 M/mm3 (3.60-5.2); RDW 15.1 % (11.6-15.6); WHITE BLOOD COUNT 10.4 K/mm3 (4.0-10.0)
[2017-02-27 08:11] LABS: ANION GAP 11 (8-16); BLOOD UREA NITROGEN 36 mg/dL (7-18); CALCIUM 8.7 mg/dL (8.5-10.1); CHLORIDE 96 mmol/L (98-107); CO2 27 mmol/L (21-32); CREATININE 0.9 mg/dL (0.55-1.02); GLUCOSE,RANDOM 247 mg/dL (74-106); POTASSIUM 4.9 mmol/L (3.5-5.1); SODIUM 134 mmol/L (136-145)
[2017-02-27] MEDS ORDERED: PT OWN MED DRAWER 7, Y5N ONE ×2 (09:25→11:58)
[2017-02-27] MEDS: LISINOPRIL 20 MG TABLET (FP) PO SCH (09:27)
[2017-02-27] MEDS: RANITIDINE HCL 150 MG TABLET (FP) PO SCH (09:27)
[2017-02-27] MEDS: ASPIRIN 81 MG CHEWABLE TABLETS PO SCH (09:28)
[2017-02-27] MEDS: HEPARIN NA (PORCINE) 5,000 UNITS/ML 1ML VIAL SQ SCH ×2 (09:28→21:19)
[2017-02-27] MEDS: CLOPIDOGREL BISULFATE 75 MG TABLET (FP) PO SCH (09:28)
[2017-02-27] MEDS: FUROSEMIDE 40 MG TABLET (FP) PO SCH (09:28)
[2017-02-27] MEDS: GABAPENTIN 300 MG CAPSULE (FP) PO SCH ×4 (09:28→21:18)
[2017-02-27] MEDS: guaiFENesin/D-METHORPHAN HB 1 EACH TAB.ER.12H PO SCH ×2 (09:29→21:20)
[2017-02-27] MEDS: MUPIROCIN 2% TOPICAL OINTMENT 22 GM TUBE TP SCH ×2 (09:29→21:26)
[2017-02-27] MEDS: VERAPAMIL HCL 180 MG E.R. TABLET (FP) PO SCH (09:29)
[2017-02-27] MEDS: NICOTINE 21 MG/24 HOURS TOPICAL PATCH TD SCH (09:30)
[2017-02-27] MEDS: prednisoLONE ACETATE 1% OPHTH SUSP 5 ML BOTTLE OS SCH ×4 (09:30→21:21)
[2017-02-27] MEDS: OFLOXACIN 0.3% OPHTHALMIC SOLUTION 5 ML BOTTLE OS SCH ×4 (09:30→21:22)
[2017-02-27] MEDS: TIOTROPIUM BROMIDE 18 MCG/INH (DEVICE W/ 5 CAPSULES) IH SCH (09:31)
[2017-02-27 10:51] LABS: ANISOCYTOSIS 1+
[2017-02-27] MEDS: methylPREDNISolone NA SUCC 40 MG/1 ML VIAL IVPUSH SCH ×2 (12:02→21:20)
--- NOTE | 2017-02-27 12:44 | PN ---
Progress Note (short form) - Note Progress Note: No complaints Left foot warm. Stable increase activity ASA/Plavix Problem List - Problems (1) PAD (peripheral artery disease) Code(s): I73.9 - PERIPHERAL VASCULAR DISEASE, UNSPECIFIED
--- NOTE | 2017-02-27 12:55 | PN ---
Progress Note, Physician History of Present Illness: pulmonary alert,feeling better,less congested - Current Medication List Current Medications: Active Medications Acetaminophen (Tylenol -) 650 mg PO Q4H PRN PRN Reason: FEVER OR PAIN Albuterol Sulfate (Ventolin 0.083% Nebulizer Soln -) 1 amp NEB Q1H PRN PRN Reason: SHORT OF BREATH/WHEEZING Last Admin: 02/27/17 02:17 Dose: 1 amp Albuterol Sulfate (Ventolin 0.083% Nebulizer Soln -) 1 amp NEB [facility]4HWA [facility] Last Admin: 02/27/17 10:00 Dose: 1 amp Aspirin (Asa -) 81 mg PO DAILY [facility] Last Admin: 02/27/17 09:28 Dose: 81 mg Atorvastatin Calcium (Lipitor -) 20 mg PO HS [facility] Last Admin: 02/26/17 21:51 Dose: 20 mg Clopidogrel Bisulfate (Plavix -) 75 mg PO DAILY [facility] Last Admin: 02/27/17 09:28 Dose: 75 mg Furosemide (Lasix -) 40 mg PO DAILY [facility] Last Admin: 02/27/17 09:28 Dose: 40 mg Gabapentin (Neurontin -) 600 mg PO QID [facility] Last Admin: 02/27/17 09:28 Dose: 600 mg Guaifenesin (Mucinex Dm -) 1 tablet PO BID [facility] Last Admin: 02/27/17 09:29 Dose: 1 tablet Heparin Sodium (Porcine) (Heparin -) 5,000 unit SQ BID [facility] Last Admin: 02/27/17 09:28 Dose: 5,000 unit Lisinopril (Prinivil) 20 mg PO DAILY [facility] Last Admin: 02/27/17 09:27 Dose: 20 mg Methylprednisolone Sodium Succinate (Solu-Medrol -) 40 mg IVPUSH BID [facility] Last Admin: 02/27/17 12:02 Dose: 40 mg Montelukast Sodium (Singulair -) 10 mg PO HS [facility] Last Admin: 02/26/17 21:51 Dose: 10 mg Mupirocin (Bactroban 2% Ointment -) 1 applic TP BID [facility] Last Admin: 02/27/17 09:29 Dose: 1 applic Nicotine (Nicoderm Patch -) 21 mg TD DAILY [facility] Last Admin: 02/27/17 09:30 Dose: 21 mg Non-Formulary Medication (Bromfenac Sodium [Bromfenac Sodium]) 1.7 ml OS DAILY [facility] Nystatin (Nystatin Oral Suspension -) 500,000 units PO Q6HPO [facility] Last Admin: 02/27/17 12:00 Dose: 500,000 units Ofloxacin (Ocuflox 0.3% Eye Drops -) 1 drop OS QID [facility] Last Admin: 02/27/17 09:30 Dose: 1 drop Ondansetron HCl (Zofran Injection) 4 mg IVPUSH Q6H PRN PRN Reason: NAUSEA AND/OR VOMITING Prednisolone Acetate (Pred Forte 1% -) 1 drop OS QID [facility] Last Admin: 02/27/17 09:30 Dose: 1 drop Ranitidine HCl (Zantac -) 150 mg PO BID [facility] Last Admin: 02/27/17 09:27 Dose: 150 mg Tiotropium [place] (Spiriva -) 1 puff IH DAILY [facility] Last Admin: 02/27/17 09:31 Dose: 1 puff Verapamil HCl (Calan Sr -) 180 mg PO DAILY [facility] Last Admin: 02/27/17 09:29 Dose: 180 mg - Objective Vital Signs: Vital Signs Temperature 98.3 F 02/27/17 08:35 Pulse Rate 73 02/27/17 12:02 Respiratory Rate 20 02/27/17 09:07 Blood Pressure 148/83 02/27/17 08:35 O2 Sat by Pulse Oximetry (%) 98 02/27/17 12:02 Constitutional: Yes: Well Nourished, Calm Eyes: Yes: WNL HENT: Yes: WNL Neck: Yes: WNL Cardiovascular: Yes: Regular Rate and Rhythm, S1, S2 Respiratory: Yes: Rhonchi (few rhonchi) Gastrointestinal: Yes: Normal Bowel Sounds, Soft Extremities: Yes: WNL Edema: No Labs: CBC, BMP 02/27/17 07:05 02/27/17 07:05 INR, PTT INR 0.97 (0.82-1.09) 02/19/17 07:00 Assessment/Plan Problem List - Problems (1) S/P coronary artery stent placement Code(s): Z95.5 - PRESENCE OF CORONARY ANGIOPLASTY IMPLANT AND GRAFT (2) COPD exacerbation Code(s): J44.1 - CHRONIC OBSTRUCTIVE PULMONARY DISEASE W (ACUTE) EXACERBATION (3) Peripheral vascular disease Code(s): I73.9 - PERIPHERAL VASCULAR DISEASE, UNSPECIFIED (4) HTN (hypertension) Code(s): I10 - ESSENTIAL (PRIMARY) HYPERTENSION Qualifiers: Hypertension type: essential hypertension Qualified Code(s): I10 - Essential (primary) hypertension (5) Hyperlipemia, mixed Code(s): E78.2 - MIXED HYPERLIPIDEMIA Assessment/Plan Acute exacerbation of COPD 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
--- NOTE | 2017-02-27 13:58 | PN ---
Progress Note, Physician History of Present Illness: Dyspnea and cough productive of yellow sputum improved. BP control improved. - Current Medication List Current Medications: Active Medications Acetaminophen (Tylenol -) 650 mg PO Q4H PRN PRN Reason: FEVER OR PAIN Albuterol Sulfate (Ventolin 0.083% Nebulizer Soln -) 1 amp NEB Q1H PRN PRN Reason: SHORT OF BREATH/WHEEZING Last Admin: 02/27/17 02:17 Dose: 1 amp Albuterol Sulfate (Ventolin 0.083% Nebulizer Soln -) 1 amp NEB Q4HWA [facility] Last Admin: 02/27/17 10:00 Dose: 1 amp Aspirin (Asa -) 81 mg PO DAILY [facility] Last Admin: 02/27/17 09:28 Dose: 81 mg Atorvastatin Calcium (Lipitor -) 20 mg PO HS [facility] Last Admin: 02/26/17 21:51 Dose: 20 mg Clopidogrel Bisulfate (Plavix -) 75 mg PO DAILY [facility] Last Admin: 02/27/17 09:28 Dose: 75 mg Furosemide (Lasix -) 40 mg PO DAILY [facility] Last Admin: 02/27/17 09:28 Dose: 40 mg Gabapentin (Neurontin -) 600 mg PO QID [facility] Last Admin: 02/27/17 09:28 Dose: 600 mg Guaifenesin (Mucinex Dm -) 1 tablet PO BID [facility] Last Admin: 02/27/17 09:29 Dose: 1 tablet Heparin Sodium (Porcine) (Heparin -) 5,000 unit SQ BID [facility] Last Admin: 02/27/17 09:28 Dose: 5,000 unit Lisinopril (Prinivil) 20 mg PO DAILY [facility] Last Admin: 02/27/17 09:27 Dose: 20 mg Methylprednisolone Sodium Succinate (Solu-Medrol -) 40 mg IVPUSH BID [facility] Last Admin: 02/27/17 12:02 Dose: 40 mg Montelukast Sodium (Singulair -) 10 mg PO HS [facility] Last Admin: 02/26/17 21:51 Dose: 10 mg Mupirocin (Bactroban 2% Ointment -) 1 applic TP BID [facility] Last Admin: 02/27/17 09:29 Dose: 1 applic Nicotine (Nicoderm Patch -) 21 mg TD DAILY [facility] Last Admin: 02/27/17 09:30 Dose: 21 mg Non-Formulary Medication (Bromfenac Sodium [Bromfenac Sodium]) 1.7 ml OS DAILY [facility] Nystatin (Nystatin Oral Suspension -) 500,000 units PO Q6HPO [facility] Last Admin: 02/27/17 12:00 Dose: 500,000 units Ofloxacin (Ocuflox 0.3% Eye Drops -) 1 drop OS QID [facility] Last Admin: 02/27/17 09:30 Dose: 1 drop Ondansetron HCl (Zofran Injection) 4 mg IVPUSH Q6H PRN PRN Reason: NAUSEA AND/OR VOMITING Prednisolone Acetate (Pred Forte 1% -) 1 drop OS QID [facility] Last Admin: 02/27/17 09:30 Dose: 1 drop Ranitidine HCl (Zantac -) 150 mg PO BID [facility] Last Admin: 02/27/17 09:27 Dose: 150 mg Tiotropium [place] (Spiriva -) 1 puff IH DAILY [facility] Last Admin: 02/27/17 09:31 Dose: 1 puff Verapamil HCl (Calan Sr -) 180 mg PO DAILY [facility] Last Admin: 02/27/17 09:29 Dose: 180 mg - Objective Vital Signs: Vital Signs Temperature 98.3 F 02/27/17 08:35 Pulse Rate 73 02/27/17 12:02 Respiratory Rate 20 02/27/17 09:07 Blood Pressure 148/83 02/27/17 08:35 O2 Sat by Pulse Oximetry (%) 98 02/27/17 12:02 Constitutional: Yes: No Distress, Calm Neck: Yes: Supple Cardiovascular: Yes: Regular Rate and Rhythm Respiratory: Yes: Regular, Diminished, On Nasal O2 Gastrointestinal: Yes: Normal Bowel Sounds, Soft Edema: No Labs: CBC, BMP 02/27/17 07:05 02/27/17 07:05 INR, PTT INR 0.97 (0.82-1.09) 02/19/17 07:00 Problem List - Problems (1) S/P coronary artery stent placement Code(s): Z95.5 - PRESENCE OF CORONARY ANGIOPLASTY IMPLANT AND GRAFT (2) COPD exacerbation Code(s): J44.1 - CHRONIC OBSTRUCTIVE PULMONARY DISEASE W (ACUTE) EXACERBATION (3) Peripheral vascular disease Code(s): I73.9 - PERIPHERAL VASCULAR DISEASE, UNSPECIFIED (4) HTN (hypertension) Code(s): I10 - ESSENTIAL (PRIMARY) HYPERTENSION Qualifiers: Hypertension type: essential hypertension Qualified Code(s): I10 - Essential (primary) hypertension (5) Hyperlipemia, mixed Code(s): E78.2 - MIXED HYPERLIPIDEMIA (6) Status post peripheral artery angioplasty with insertion of stent Code(s): Z95.820 - PERIPHERAL VASCULAR ANGIOPLASTY STATUS W IMPLANTS AND GRAFTS Assessment/Plan 02/22/2017 Echo: Normal LV size and fxn, mild LAE, mild MR, TR 1. Acute exacerbation of COPD slowly resolving 2. 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 CAD post PCI/stent, angina pectoris 4. HTN, BP improved 5. Hyperlipidemia PLAN: 1. Bronchodilator, O2, slow IV steroid taper, Singulair and empiric antibiotic coverage 2. Continue ASA 81 qd, Plavix 75 qd, Lasix 40 qd and Lipitor 20 qd 3. Continue Calan SR 180 qd and lisinopril 20 qd as tolerated 4. GI and DVT prophylaxis
--- NOTE | 2017-02-27 14:47 | PN ---
Physical Exam: SUBJECTIVE: Patient seen and examined. She is feeling better, able to take deep breaths better, she doesn't use oxygen at home normally. OBJECTIVE: Vital Signs Period Temp Pulse Resp BP Sys/Olguin Pulse Ox Last 24 Hr 97.5 F-98.3 F 69-75 18-20 148-157/64-92 94-98 PE Neuro: alert, awake, cn 2-12 intact Pulm: basilar rhonchi, bs improved, dysphonia improving CV: s1 s2 rrr Abd: s nt nd + bs Ext: RLE dried lesions, RUE hematoma, Laboratory Results - last 24 hr 02/26/17 02/26/17 02/27/17 14:24 14:24 07:05 WBC 14.6 H 10.4 H RBC 3.65 3.57 L Hgb 12.8 12.6 Hct 38.7 38.1 MCV 106.1 H 106.6 H MCH 35.1 H 35.4 H MCHC 33.1 33.2 RDW 14.9 15.1 Plt Count 192 188 MPV 9.4 9.5 Absolute Neuts (auto) 13.6 L Absolute Lymphs (auto) 0.3 L Absolute Monos (auto) 0.7 L Absolute Eos (auto) 0.0 Absolute Basos (auto) 0.0 L Total Counted 100 Neutrophils % 93.2 H No Result Required. Neutrophils % (Manual) 95.0 H* Band Neutrophils % 1.0 Lymphocytes % 1.8 L D No Result Required. Lymphocytes % (Manual) 2.0 L Monocytes % 4.9 D Monocytes % (Manual) 2 L Eosinophils % 0.0 Basophils % 0.1 Hypochromia 1+ Anisocytosis 1+ Microcytosis 1+ Sodium 133 L Potassium 4.5 Chloride 95 L Carbon Dioxide 28 Anion Gap 10 BUN 39 H D Creatinine 1.0 Random Glucose 261 H D Calcium 8.2 L 02/27/17 07:05 WBC RBC Hgb Hct MCV MCH MCHC RDW Plt Count MPV Absolute Neuts (auto) Absolute Lymphs (auto) Absolute Monos (auto) Absolute Eos (auto) Absolute Basos (auto) Total Counted Neutrophils % Neutrophils % (Manual) Band Neutrophils % Lymphocytes % Lymphocytes % (Manual) Monocytes % Monocytes % (Manual) Eosinophils % Basophils % Hypochromia Anisocytosis Microcytosis Sodium 134 L Potassium 4.9 Chloride 96 L Carbon Dioxide 27 Anion Gap 11 BUN 36 H Creatinine 0.9 Random Glucose 247 H Calcium 8.7 Active Medications Generic Name Dose Route Start Last Admin Trade Name Freq PRN Reason Stop Dose Admin Acetaminophen 650 mg 02/24/17 20:38 Tylenol - PO Q4H PRN FEVER OR PAIN Albuterol Sulfate 1 amp 02/24/17 21:05 02/27/17 02:17 Ventolin 0.083% Nebulizer Soln - NEB 1 amp Q1H PRN Administration SHORT OF BREATH/WHEEZING Albuterol Sulfate 1 amp 02/24/17 22:00 02/27/17 14:00 Ventolin 0.083% Nebulizer Soln - NEB 1 amp Q4HWA [facility] Administration Aspirin 81 mg 02/25/17 10:00 02/27/17 09:28 Asa - PO 81 mg DAILY [facility] Administration Atorvastatin Calcium 20 mg 02/24/17 22:00 02/26/17 21:51 Lipitor - PO 20 mg HS [facility] Administration Clopidogrel Bisulfate 75 mg 02/25/17 10:00 02/27/17 09:28 Plavix - PO 75 mg DAILY [facility] Administration Furosemide 40 mg 02/25/17 10:00 02/27/17 09:28 Lasix - PO 40 mg DAILY [facility] Administration Gabapentin 600 mg 02/24/17 22:00 02/27/17 09:28 Neurontin - PO 600 mg QID [facility] Administration Guaifenesin 1 tablet 02/26/17 22:00 02/27/17 09:29 Mucinex Dm - PO 1 tablet BID [facility] Administration Heparin Sodium (Porcine) 5,000 unit 02/25/17 10:00 02/27/17 09:28 Heparin - SQ 5,000 unit BID [facility] Administration Lisinopril 20 mg 02/25/17 10:00 02/27/17 09:27 Prinivil PO 20 mg DAILY [facility] Administration Methylprednisolone Sodium Succinate 40 mg 02/26/17 22:00 02/27/17 12:02 Solu-Medrol - IVPUSH 40 mg BID [facility] Administration Montelukast Sodium 10 mg 02/24/17 22:00 02/26/17 21:51 Singulair - PO 10 mg HS [facility] Administration Mupirocin 1 applic 02/24/17 22:00 02/27/17 09:29 Bactroban 2% Ointment - TP 1 applic BID [facility] Administration Nicotine 21 mg 02/25/17 10:00 02/27/17 09:30 Nicoderm Patch - TD 21 mg DAILY [facility] Administration Non-Formulary Medication 1.7 ml 02/25/17 10:00 Bromfenac Sodium [Bromfenac Sodium] OS DAILY [facility] Nystatin 500,000 units 02/25/17 00:00 02/27/17 12:00 Nystatin Oral Suspension - PO 500,000 units Q6HPO [facility] Administration Ofloxacin 1 drop 02/24/17 22:00 02/27/17 09:30 Ocuflox 0.3% Eye Drops - OS 1 drop QID [facility] Administration Ondansetron HCl 4 mg 02/24/17 20:35 Zofran Injection IVPUSH Q6H PRN NAUSEA AND/OR VOMITING Prednisolone Acetate 1 drop 02/24/17 22:00 02/27/17 09:30 Pred Forte 1% - OS 1 drop QID [facility] Administration Ranitidine HCl 150 mg 02/24/17 22:00 02/27/17 09:27 Zantac - PO 150 mg BID [facility] Administration Tiotropium [place] 1 puff 02/25/17 10:00 02/27/17 09:31 Spiriva - IH 1 puff DAILY [facility] Administration Verapamil HCl 180 mg 02/25/17 10:00 02/27/17 09:29 Calan Sr - PO 180 mg DAILY [facility] Administration Assessment: 66 year old female with a PMH significant for HTN, HLD, CAD s/p stent, PVD, and COPD. Admitted for COPD exacerbation. Plan: 1. COPD exacerbation - Continue solumedrol 40mg BID - Continue Advair, Spiriva, Singulair, albuterol nebs PRN - Start protonix - Completed azithromycin course - Mucinex BID 2. 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 CAD s/p stent - Continue ASA, Plavix, Lipitor 4. HTN - Improving - Verapamil to 180mg daily - Increased Lisinopril 20mg daily - Continue Lasix 40mg daily 5. HLD - Continue Lipitor 6. DVT prophylaxis - Heparin sq Visit type - Emergency Visit Emergency Visit: Yes ED Registration Date: 02/19/17 Care time: The patient presented to the Emergency Department on the above date and was hospitalized for further evaluation of their emergent condition. - New Patient This patient is new to me today: No - Critical Care Critical Care patient: No
[2017-02-27] MEDS: ATORVASTATIN CA 20 MG TABLET (FP) PO SCH (21:18)
[2017-02-27] MEDS: MONTELUKAST NA 10 MG TABLET PO SCH (21:19)
[2017-02-28] MEDS: NYSTATIN 500,000 UNITS/5 ML SUSPENSION PO SCH ×3 (00:28→14:00)
[2017-02-28] MEDS: ALBUTEROL SO4 0.083% IH SOL 2.5 MG/3 ML VIAL.NEB. NEB PRN (02:44)
[2017-02-28] MEDS: ALBUTEROL SO4 0.083% IH SOL 2.5 MG/3 ML VIAL.NEB. NEB SCH ×3 (06:50→14:47)
[2017-02-28 08:26] LABS: HEMATOCRIT 39.6 % (32.4-45.2); MCHC 32.8 g/dl (32.0-36.0); MEAN CELL VOLUME 106.8 fl (80-96); MEAN PLT VOLUME 9.6 fl (7.5-11.1); PLATELET COUNT 204 K/MM3 (134-434); RDW 14.5 % (11.6-15.6); WHITE BLOOD COUNT 9.8 K/mm3 (4.0-10.0)
[2017-02-28 08:46] LABS: ADD RBC MORPHOLOGY YES
[2017-02-28 09:40] LABS: ACANTHOCYTES 0; ANISOCYTOSIS 0; HELMET CELLS 0; HOWELL-JOLLY BODIES 0; MACROCYTOSIS 0; OVALOCYTE 0; PLATELET ESTIMATE NORMAL; SICKELED CELLS 0; TARGET CELLS 0; TEAR DROP CELLS 0; TOXIC GRANULATION 0
[2017-02-28] MEDS: ASPIRIN 81 MG CHEWABLE TABLETS PO SCH (09:58)
[2017-02-28] MEDS: GABAPENTIN 300 MG CAPSULE (FP) PO SCH ×2 (09:58→14:00)
[2017-02-28] MEDS: FUROSEMIDE 40 MG TABLET (FP) PO SCH (09:58)
[2017-02-28] MEDS: LISINOPRIL 20 MG TABLET (FP) PO SCH (09:58)
[2017-02-28] MEDS: VERAPAMIL HCL 180 MG E.R. TABLET (FP) PO SCH (09:58)
[2017-02-28] MEDS: NICOTINE 21 MG/24 HOURS TOPICAL PATCH TD SCH (09:58)
[2017-02-28] MEDS: methylPREDNISolone NA SUCC 40 MG/1 ML VIAL IVPUSH SCH (09:58)
[2017-02-28] MEDS: CLOPIDOGREL BISULFATE 75 MG TABLET (FP) PO SCH (09:58)
[2017-02-28] MEDS ORDERED: PANTOPRAZOLE 40 MG TABLET (FP) PO SCH (10:00)
[2017-02-28] MEDS: guaiFENesin/D-METHORPHAN HB 1 EACH TAB.ER.12H PO SCH (10:02)
[2017-02-28] MEDS: HEPARIN NA (PORCINE) 5,000 UNITS/ML 1ML VIAL SQ SCH (10:03)
[2017-02-28] MEDS: MUPIROCIN 2% TOPICAL OINTMENT 22 GM TUBE TP SCH (10:04)
[2017-02-28] MEDS: TIOTROPIUM BROMIDE 18 MCG/INH (DEVICE W/ 5 CAPSULES) IH SCH (10:07)
[2017-02-28] MEDS: prednisoLONE ACETATE 1% OPHTH SUSP 5 ML BOTTLE OS SCH ×2 (10:08→14:01)
[2017-02-28] MEDS: OFLOXACIN 0.3% OPHTHALMIC SOLUTION 5 ML BOTTLE OS SCH ×2 (10:08→14:01)
--- NOTE | 2017-02-28 12:24 | PN ---
Progress Note, Physician History of Present Illness: pulmonary alert,feeling better,-resp distress - Current Medication List Current Medications: Active Medications Acetaminophen (Tylenol -) 650 mg PO Q4H PRN PRN Reason: FEVER OR PAIN Albuterol Sulfate (Ventolin 0.083% Nebulizer Soln -) 1 amp NEB Q1H PRN PRN Reason: SHORT OF BREATH/WHEEZING Last Admin: 02/28/17 02:44 Dose: 1 amp Albuterol Sulfate (Ventolin 0.083% Nebulizer Soln -) 1 amp NEB Q4HWA [facility] Last Admin: 02/28/17 10:35 Dose: 1 amp Aspirin (Asa -) 81 mg PO DAILY [facility] Last Admin: 02/28/17 09:58 Dose: 81 mg Atorvastatin Calcium (Lipitor -) 20 mg PO HS [facility] Last Admin: 02/27/17 21:18 Dose: 20 mg Clopidogrel Bisulfate (Plavix -) 75 mg PO DAILY [facility] Last Admin: 02/28/17 09:58 Dose: 75 mg Furosemide (Lasix -) 40 mg PO DAILY [facility] Last Admin: 02/28/17 09:58 Dose: 40 mg Gabapentin (Neurontin -) 600 mg PO QID [facility] Last Admin: 02/28/17 09:58 Dose: 600 mg Guaifenesin (Mucinex Dm -) 1 tablet PO BID [facility] Last Admin: 02/28/17 10:02 Dose: 1 tablet Heparin Sodium (Porcine) (Heparin -) 5,000 unit SQ BID [facility] Last Admin: 02/28/17 10:03 Dose: 5,000 unit Lisinopril (Prinivil) 20 mg PO DAILY [facility] Last Admin: 02/28/17 09:58 Dose: 20 mg Methylprednisolone Sodium Succinate (Solu-Medrol -) 40 mg IVPUSH BID [facility] Last Admin: 02/28/17 09:58 Dose: 40 mg Montelukast Sodium (Singulair -) 10 mg PO HS [facility] Last Admin: 02/27/17 21:19 Dose: 10 mg Mupirocin (Bactroban 2% Ointment -) 1 applic TP BID [facility] Last Admin: 02/28/17 10:04 Dose: 1 applic Nicotine (Nicoderm Patch -) 21 mg TD DAILY [facility] Last Admin: 02/28/17 09:58 Dose: 21 mg Non-Formulary Medication (Bromfenac Sodium [Bromfenac Sodium]) 1.7 ml OS DAILY [facility] Nystatin (Nystatin Oral Suspension -) 500,000 units PO Q6HPO [facility] Last Admin: 02/28/17 05:47 Dose: 500,000 units Ofloxacin (Ocuflox 0.3% Eye Drops -) 1 drop OS QID [facility] Last Admin: 02/28/17 10:08 Dose: 1 drop Ondansetron HCl (Zofran Injection) 4 mg IVPUSH Q6H PRN PRN Reason: NAUSEA AND/OR VOMITING Pantoprazole Sodium (Protonix -) 40 mg PO DAILY [facility] Last Admin: 02/28/17 09:58 Dose: 40 mg Prednisolone Acetate (Pred Forte 1% -) 1 drop OS QID [facility] Last Admin: 02/28/17 10:08 Dose: 1 drop Tiotropium [place] (Spiriva -) 1 puff IH DAILY [facility] Last Admin: 02/28/17 10:07 Dose: 1 puff Verapamil HCl (Calan Sr -) 180 mg PO DAILY [facility] Last Admin: 02/28/17 09:58 Dose: 180 mg - Objective Vital Signs: Vital Signs Temperature 97.5 F L 02/28/17 06:48 Pulse Rate 74 02/28/17 10:00 Respiratory Rate 20 02/28/17 10:00 Blood Pressure 137/77 02/28/17 10:00 O2 Sat by Pulse Oximetry (%) 98 02/27/17 21:00 Constitutional: Yes: Well Nourished, Calm Eyes: Yes: WNL HENT: Yes: WNL Neck: Yes: WNL Cardiovascular: Yes: Regular Rate and Rhythm, S1, S2 Respiratory: Yes: Diminished Gastrointestinal: Yes: Normal Bowel Sounds, Soft Extremities: Yes: WNL Edema: No Labs: CBC, BMP 02/28/17 08:05 Assessment/Plan Problem List - Problems (1) S/P coronary artery stent placement Code(s): Z95.5 - PRESENCE OF CORONARY ANGIOPLASTY IMPLANT AND GRAFT (2) COPD exacerbation Code(s): J44.1 - CHRONIC OBSTRUCTIVE PULMONARY DISEASE W (ACUTE) EXACERBATION (3) Peripheral vascular disease Code(s): I73.9 - PERIPHERAL VASCULAR DISEASE, UNSPECIFIED (4) HTN (hypertension) Code(s): I10 - ESSENTIAL (PRIMARY) HYPERTENSION Qualifiers: Hypertension type: essential hypertension Qualified Code(s): I10 - Essential (primary) hypertension (5) Hyperlipemia, mixed Code(s): E78.2 - MIXED HYPERLIPIDEMIA Assessment/Plan Acute exacerbation of COPD PAD post bilateral [employer] HTN Bronchodilators O2 as needed PREDNISONE 50mg daily with taper Singulair Nicotine patch DR DELONG
--- NOTE | 2017-02-28 12:58 | PN ---
Progress Note, Physician History of Present Illness: Dyspnea and cough productive of yellow sputum improved. BP control improved. - Current Medication List Current Medications: Active Medications Acetaminophen (Tylenol -) 650 mg PO Q4H PRN PRN Reason: FEVER OR PAIN Albuterol Sulfate (Ventolin 0.083% Nebulizer Soln -) 1 amp NEB Q1H PRN PRN Reason: SHORT OF BREATH/WHEEZING Last Admin: 02/28/17 02:44 Dose: 1 amp Albuterol Sulfate (Ventolin 0.083% Nebulizer Soln -) 1 amp NEB Q4HWA [facility] Last Admin: 02/28/17 10:35 Dose: 1 amp Aspirin (Asa -) 81 mg PO DAILY [facility] Last Admin: 02/28/17 09:58 Dose: 81 mg Atorvastatin [place] (Lipitor -) 20 mg PO HS [facility] Last Admin: 02/27/17 21:18 Dose: 20 mg Clopidogrel Bisulfate (Plavix -) 75 mg PO DAILY [facility] Last Admin: 02/28/17 09:58 Dose: 75 mg Furosemide (Lasix -) 40 mg PO DAILY [facility] Last Admin: 02/28/17 09:58 Dose: 40 mg Gabapentin (Neurontin -) 600 mg PO QID [facility] Last Admin: 02/28/17 09:58 Dose: 600 mg Guaifenesin (Mucinex Dm -) 1 tablet PO BID [facility] Last Admin: 02/28/17 10:02 Dose: 1 tablet Heparin Sodium (Porcine) (Heparin -) 5,000 unit SQ BID [facility] Last Admin: 02/28/17 10:03 Dose: 5,000 unit Lisinopril (Prinivil) 20 mg PO DAILY [facility] Last Admin: 02/28/17 09:58 Dose: 20 mg Methylprednisolone Sodium Succinate (Solu-Medrol -) 40 mg IVPUSH BID [facility] Last Admin: 02/28/17 09:58 Dose: 40 mg Montelukast Sodium (Singulair -) 10 mg PO HS [facility] Last Admin: 02/27/17 21:19 Dose: 10 mg Mupirocin (Bactroban 2% Ointment -) 1 applic TP BID [facility] Last Admin: 02/28/17 10:04 Dose: 1 applic Nicotine (Nicoderm Patch -) 21 mg TD DAILY [facility] Last Admin: 02/28/17 09:58 Dose: 21 mg Non-Formulary Medication (Bromfenac Sodium [Bromfenac Sodium]) 1.7 ml OS DAILY [facility] Nystatin (Nystatin Oral Suspension -) 500,000 units PO Q6HPO [facility] Last Admin: 02/28/17 05:47 Dose: 500,000 units Ofloxacin (Ocuflox 0.3% Eye Drops -) 1 drop OS QID [facility] Last Admin: 02/28/17 10:08 Dose: 1 drop Ondansetron HCl (Zofran Injection) 4 mg IVPUSH Q6H PRN PRN Reason: NAUSEA AND/OR VOMITING Pantoprazole Sodium (Protonix -) 40 mg PO DAILY [facility] Last Admin: 02/28/17 09:58 Dose: 40 mg Prednisolone Acetate (Pred Forte 1% -) 1 drop OS QID [facility] Last Admin: 02/28/17 10:08 Dose: 1 drop Tiotropium [place] (Spiriva -) 1 puff IH DAILY [facility] Last Admin: 02/28/17 10:07 Dose: 1 puff Verapamil HCl (Calan Sr -) 180 mg PO DAILY [facility] Last Admin: 02/28/17 09:58 Dose: 180 mg - Objective Vital Signs: Vital Signs Temperature 97.5 F L 02/28/17 06:48 Pulse Rate 107 H 02/28/17 11:40 Respiratory Rate 20 02/28/17 10:00 Blood Pressure 137/77 02/28/17 10:00 O2 Sat by Pulse Oximetry (%) 93 L 02/28/17 11:40 Constitutional: Yes: No Distress, Calm Neck: Yes: Supple Cardiovascular: Yes: Regular Rate and Rhythm Respiratory: Yes: Regular, Diminished Gastrointestinal: Yes: Normal Bowel Sounds, Soft Edema: No Labs: CBC, BMP 02/28/17 08:05 02/27/17 07:05 INR, PTT INR 0.97 (0.82-1.09) 02/19/17 07:00 Problem List - Problems (1) S/P coronary artery stent placement Code(s): Z95.5 - PRESENCE OF CORONARY ANGIOPLASTY IMPLANT AND GRAFT (2) COPD exacerbation Code(s): J44.1 - CHRONIC OBSTRUCTIVE PULMONARY DISEASE W (ACUTE) EXACERBATION (3) Peripheral vascular disease Code(s): I73.9 - PERIPHERAL VASCULAR DISEASE, UNSPECIFIED (4) HTN (hypertension) Code(s): I10 - ESSENTIAL (PRIMARY) HYPERTENSION Qualifiers: Hypertension type: essential hypertension Qualified Code(s): I10 - Essential (primary) hypertension (5) Hyperlipemia, mixed Code(s): E78.2 - MIXED HYPERLIPIDEMIA (6) Status post peripheral artery angioplasty with insertion of stent Code(s): Z95.820 - PERIPHERAL VASCULAR ANGIOPLASTY STATUS W IMPLANTS AND GRAFTS Assessment/Plan 02/22/2017 Echo: Normal LV size and fxn, mild LAE, mild MR, TR 1. 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 CAD post PCI/stent, angina pectoris 4. HTN, BP improved 5. Hyperlipidemia PLAN: 1. Bronchodilator, O2, slow oral steroid taper, Singulair and completed empiric antibiotic coverage 2. Continue ASA 81 qd, Plavix 75 qd, Lasix 40 qd and Lipitor 20 qd 3. Continue Calan SR 180 qd and lisinopril 20 qd as tolerated 4. GI and DVT prophylaxis 5. D/c planning with f/u in office
[2017-02-28 14:11] VITALS: BP 149/72; PULSE 86; TEMP 98.4
== END 2017-02-28 17:01 | disposition home or self-care (01) | DRG 167 ==
LOC: JER 22:17 → JERBED 02-19 02:40 → UNDOADMIN 02-19 02:56 → J6S 02-19 04:04
PROVIDERS: ADMIT Internal Medicine; ATTEND Nurse Practitioner Acute Care
PROC: 3E033GC Introduction of Other Therapeutic Substance into Peripheral Vein, Percutaneous Approach (ICD-10-PCS; 2017-02-24)
PROC: B41GZZZ Fluoroscopy of Left Lower Extremity Arteries (ICD-10-PCS; 2017-02-24)
PROC: 047L3EZ Dilation of Left Femoral Artery with Two Intraluminal Devices, Percutaneous Approach (ICD-10-PCS; principal; 2017-02-24 16:00)
DX: J44.1 Chronic obstructive pulmonary disease with (acute) exacerbation (principal); I25.110 Atherosclerotic heart disease of native coronary artery with unstable angina pectoris; E78.5 Hyperlipidemia, unspecified; I10 Essential (primary) hypertension; I70.292 Other atherosclerosis of native arteries of extremities, left leg; I77.1 Stricture of artery; M48.00 Spinal stenosis, site unspecified; G62.89 Other specified polyneuropathies; Z87.891 Personal history of nicotine dependence; Z96.652 Presence of left artificial knee joint; Z95.5 Presence of coronary angioplasty implant and graft
CPT/HCPCS: 36415; 71020-TC; 76000-TC; 80048; 80053; 83735; 83880; 84100; 84443; 85025; 85027; 85610; 86850; 86900; 86901; 87070; 87205; 93005; 93010; 93306-TC; 93923; 93925-TC; 94640; 94760; 94761; 99284-25; J1644

== ENCOUNTER 2017-03-20 08:51 | Inpatient (IN) | payer OTHER, BC ==
[2017-03-20] MEDS ORDERED: morphine CARPU-JECT 4 MG/1 ML DISP.SYRIN IVPUSH ONE (09:17)
[2017-03-20] MEDS ORDERED: SODIUM CHLORIDE 500 ML IV STA (09:17)
[2017-03-20] MEDS ORDERED: morphine CARPU-JECT 10 MG/1 ML DISP.SYRIN ONE (09:34)
[2017-03-20] MEDS ORDERED: HEPARIN NA (PORCINE) 5,000 UNITS/ML 1ML VIAL IVPUSH PRN ×2 (09:36→09:41)
[2017-03-20 09:38] LABS: BASO % 0.8 % (0-2.0); EOS % 1.1 % (0-4.5); HEMATOCRIT 34.1 % (32.4-45.2); HEMOGLOBIN 11.5 GM/dL (10.7-15.3); LYMPH % 12.3 % (8-40); MCH 36.7 pg (25.7-33.7); MCHC 33.8 g/dl (32.0-36.0); MEAN CELL VOLUME 108.8 fl (80-96); MONO % 9.3 % (3.8-10.2); NEUT % 76.5 % (42.8-82.8); PLATELET COUNT 283 K/MM3 (134-434); RBC 3.14 M/mm3 (3.60-5.2); RDW 16.5 % (11.6-15.6); WHITE BLOOD COUNT 7.9 K/mm3 (4.0-10.0)
--- NOTE | 2017-03-20 09:39 | PDOC ---
*Physical Exam - Vital Signs Last Vital Signs Temp Pulse Resp BP Pulse Ox 97.8 F 101 H 20 128/55 97 03/20/17 08:54 03/20/17 08:54 03/20/17 08:54 03/20/17 08:54 03/20/17 09:28 Heart Score/ECG Review #1 ECG reviewed & interpreted by me at: 09:30 03/20/17 09:38 NSR 88, left axis deviation, LBBB, scarbossa negative, QTC 517 msec ED Treatment Course - LABORATORY CBC & Chemistry Diagram: 03/25/17 06:30 03/24/17 06:00 Medical Decision Making - Critical Care Time Total Critical Care Time (minutes): 35 Critical Care Statement: The care of this patient involved high complexity decision making to prevent further life threatening deterioration of the patient 's condition and/or to evaluate & treat vital organ system(s) failure or risk of failure. - Medical Decision Making 03/20/17 09:35 Pt seen by the Advanced Practice Provider under my direct supervision Pt interviewed and examined Ancillary studies reviewed I agree with plan as outlined by the Advanced Practice Provider MARIPOSA Rolla Vital Signs Temp Pulse Resp BP Pulse Ox 97.8 F 101 H 20 128/55 97 03/20/17 08:54 03/20/17 08:54 03/20/17 08:54 03/20/17 08:54 03/20/17 09:28 66-year-old female patient with history of smoking, COPD, peripheral vascular disease presents with left cold foot. The patient was seen immediately by me and the physician assistant golf professional. Since yesterday afternoon, the patient felt the sudden onset of left foot and left leg pain with numbness. He had progressively became cold and increasingly numb. The patient had called her vascular surgeon Dr. Newby who instructed the patient to go to the ER immediately. Patient denies any chest pain shortness of breath or fevers. Approximately 2 weeks ago, patient did have an angioplasty of the left lower extremity for peripheral vascular disease. I had examined the patient's left lower extremity. Unable to palpate DP pulses and the left lower extremity is cold compared to the right and the patient reports subjective decreased sensation on the left. These findings are concerning for cold foot. Stat heparin was ordered and her surgeon was paged. I suspect the patient likely had rethrombosed her stent and would likely need the operating room. 03/20/17 10:57 CBC, BMP 03/20/17 09:30 03/20/17 09:30 CMP Sodium 137 mmol/L (136-145) 03/20/17 09:30 Potassium 3.0 mmol/L (3.5-5.1) L 03/20/17 09:30 Chloride 100 mmol/L (98-107) 03/20/17 09:30 Carbon Dioxide 29 mmol/L (21-32) 03/20/17 09:30 Anion Gap 8 (8-16) 03/20/17 09:30 BUN 12 mg/dL (7-18) 03/20/17 09:30 Creatinine 1.1 mg/dL (0.55-1.02) H 03/20/17 09:30 Creat Clearance w eGFR 49.39 (>60) 03/20/17 09:30 Random Glucose 107 mg/dL (74-106) H 03/20/17 09:30 Calcium 8.2 mg/dL (8.5-10.1) L 03/20/17 09:30 Total Bilirubin 0.9 mg/dL (0.2-1.0) D 03/20/17 09:30 AST 23 U/L (15-37) D 03/20/17 09:30 ALT 19 U/L (12-78) 03/20/17 09:30 Alkaline Phosphatase 81 U/L (45-117) 03/20/17 09:30 Total Protein 6.3 g/dl (6.4-8.2) L 03/20/17 09:30 Albumin 3.4 g/dl (3.4-5.0) 03/20/17 09:30 MARIPOSA Sparks had spoken with vascular surgeon Dr. Hameed. Agrees with IV heparin and requests CTA of lower extremity. *DC/Admit/Observation/Transfer Diagnosis at time of Disposition: Arterial occlusion, lower extremity, Leg pain, left - Discharge Dispostion Condition at time of disposition: Fair - Referrals - Patient Instructions - Post Discharge Activity
[2017-03-20] MEDS ORDERED: HEPARIN INFUSION - 25,000 UNITS/500 ML INFUS.BAG IVPB ONE (09:41)
[2017-03-20] MEDS ORDERED: HEPARIN SOD,PORK IN 0.45% NACL 25,000 UNIT/500 ML INFUS.BAG IVPB SCH (09:45)
[2017-03-20] MEDS ORDERED: HEPARIN SOD,PORK IN 0.45% NACL 25,000 UNITS/500 ML INFUS.BAG IVPB SCH ×3 (09:45→17:25)
[2017-03-20] MEDS ORDERED: HYDROmorphone HCL CARPU-JECT 2 MG/1 ML DISP.SYRIN IVPB ONE (09:51)
--- NOTE | 2017-03-20 09:52 | PDOC ---
History of Present Illness - General Chief Complaint: Pain Stated Complaint: LEFT LEG NUMBNESS AND PAIN Time Seen by Provider: 03/20/17 09:10 History Source: Patient - History of Present Illness Occurred: reports: yesterday Severity: Yes: severe Past History - Past Medical History Allergies/Adverse Reactions: Allergies Allergy/AdvReac Type Severity Reaction Status Date / Time No Known Allergies Allergy Verified 03/20/17 08:58 Home Medications: Ambulatory Orders Bromfenac Sodium 1.7 ml OS DAILY 02/19/17 Clopidogrel Bisulfate [Plavix -] 75 mg PO DAILY 02/19/17 Furosemide [Lasix -] 40 mg PO PRN 02/19/17 Gabapentin 600 mg PO QID 02/19/17 Montelukast Na [Singulair -] 10 mg PO HS 02/19/17 Ofloxacin 0.3% Ophth Soln [Ocuflox -] 1 drop OS QID 02/19/17 Potassium Bicarbonate/Cit AC [Effer-K 20 Meq Tablet Eff] 20 meq PO DAILY Prednisolone 1% Ophthalmic [Pred Forte 1% -] 1 drop OS QID 02/19/17 Simvastatin 40 mg PO HS 02/19/17 Verapamil HCl ER [Calan Sr -] 180 mg PO DAILY 02/19/17 Lisinopril [Prinivil] 20 mg PO DAILY #30 tablet 02/28/17 Nicotine Patch [Nicoderm Patch -] 1 patch TD DAILY #30 patch 02/28/17 Nystatin Oral Suspension - [Nystatin Oral Susp 402649 Units/5 ML -] 500,000 units PO Q6H 6 Days #1 cup 02/28/17 Pantoprazole Sodium [Protonix -] 40 mg PO DAILY #30 tablet.ec 02/28/17 Prednisone 10 mg PO ASDIR #50 tablet 02/28/17 Tiotropium [place] [Spiriva] 1 puff IH DAILY #1 inh 02/28/17 Anemia: No Asthma: No Cancer: No Cardiac Disorders: Yes (mi'08 STENT) CVA: No COPD: Yes Dementia: No Diabetes: No GI Disorders: Yes (REFLUX) Disorders: No HTN: Yes Hypercholesterolemia: Yes Liver Disease: No Seizures: No Thyroid Disease: No - Surgical History Cardiac Surgery: (STENT 2007) Orthopedic Surgery: Yes (LEFT TKR ~2009) - Suicide/Smoking/Psychosocial Hx Smoking History: Former smoker Have you smoked in the past 12 months: Yes Number of Cigarettes Smoked Daily: 2 If you are a former smoker, when did you quit?: 2 WKS Information on smoking cessation initiated: No 'Breaking Loose' booklet given: 02/19/17 Hx Alcohol Use: Yes (SOCIAL) Drug/Substance Use Hx: No Substance Use Type: None Hx Substance Use Treatment: No Review of Systems - Review of Systems Constitutional: No: Chills, Fever Respiratory: No: Shortness of Breath Cardiac (ROS): No: Chest Pain, Palpitations ABD/GI: No: Nausea, Vomiting Musculoskeletal: Yes: Other *Physical Exam - Vital Signs Last Vital Signs Temp Pulse Resp BP Pulse Ox 97.8 F 101 H 20 128/55 97 03/20/17 08:54 03/20/17 08:54 03/20/17 08:54 03/20/17 08:54 03/20/17 09:28 - Physical Exam General Appearance: Yes: Appropriately Dressed, Mild Distress HEENT: positive: Normal Voice Neck: positive: Supple Musculoskeletal: positive: Other (LLE cold to palpation and diffusely ttp w/ no pedal pulses b/l, RLE warm to touch) Integumentary: positive: Dry, Warm Neurologic: positive: Fully Oriented, Alert, Normal Mood/Affect ED Treatment Course - LABORATORY CBC & Chemistry Diagram: 03/20/17 09:30 03/20/17 09:30 - ADDITIONAL ORDERS Additional order review: 03/20/17 09:30 RBC 3.14 L MCV 108.8 H MCHC 33.8 RDW 16.5 H D MPV 8.0 D Neutrophils % 76.5 Lymphocytes % 12.3 D Monocytes % 9.3 D Eosinophils % 1.1 D Basophils % 0.8 D - RADIOLOGY Radiology Studies Ordered: Category Date Time Status CHEST X-RAY PORTABLE* [RAD] Stat Radiology 03/20/17 09:15 Taken - Medications Given in the ED: ED Medications Discontinued Medications Generic Name Dose Route Start Last Admin Trade Name Freq PRN Reason Stop Dose Admin Morphine Sulfate 4 mg 03/20/17 09:17 03/20/17 09:38 Morphine Injection - IVPUSH 03/20/17 09:18 4 mg ONCE ONE Administration Medical Decision Making - Medical Decision Making 03/20/17 09:52 66-year-old female, history of COPD, CAD status post multiple stents, hypertension, hyperlipidemia, PVD, status post angioplasty with stent to left lower extremity last month at [facility] w/ Dr Morgan, here with sudden onset left lower extremity pain with numbness and unable to bear weight since yesterday. Denies any chest pain, palpitations, shortness of breath, fever or chills. See exam Acute arterial occlusion to LLE S/p stent to LLE 02/21 Stable w/ cold, painful LLE on exam w/ no pedal pulses b/l -pain control -heparin -labs -CTA -vasc consult 03/20/17 09:[address] Morgan who agrees with ED management, would like to be contacted with results of CTA 03/20/17 13:04 Per radiology, recent stent to SFA totally occluded with no flow distally. Dr Morgan aware and states he will come see patient later in the ED *DC/Admit/Observation/Transfer Diagnosis at time of Disposition: Arterial occlusion, lower extremity, Leg pain, left - Discharge Dispostion Condition at time of disposition: Fair Admit: Yes - Referrals - Patient Instructions - Post Discharge Activity
[2017-03-20] MEDS ORDERED: HYDROmorphone HCL CARPU-JECT 1 MG/1 ML DISP.SYRIN ONE ×2 (09:53→11:55)
[2017-03-20 10:01] LABS: INR 1.12 (0.82-1.09); PROTHROMBIN TIME (PATIENT) 12.7 SEC (9.98-11.88)
[2017-03-20 10:12] LABS: ALBUMIN 3.4 g/dl (3.4-5.0); ALK PHOS 81 U/L (45-117); ANION GAP 8 (8-16); BILIRUBIN,TOTAL 0.9 mg/dL (0.2-1.0); BLOOD UREA NITROGEN 12 mg/dL (7-18); CALCIUM 8.2 mg/dL (8.5-10.1); CHLORIDE 100 mmol/L (98-107); CO2 29 mmol/L (21-32); CREATININE 1.1 mg/dL (0.55-1.02); GLUCOSE,RANDOM 107 mg/dL (74-106); SGOT/AST 23 U/L (15-37); SGPT/ALT 19 U/L (12-78); SODIUM 137 mmol/L (136-145); TOT PROT 6.3 g/dl (6.4-8.2)
[2017-03-20] MEDS ORDERED: HYDROmorphone HCL CARPU-JECT 1 MG/1 ML DISP.SYRIN IVPB ONE (11:48)
--- NOTE | 2017-03-20 13:14 | HP ---
CHIEF COMPLAINT: Severe pain in left leg since last night Vascular surgeon: Dr. Morgan HISTORY OF PRESENT ILLNESS: 66 year-old female with a PMH significant for HTN, HLD, CAD s/p stent, COPD, and peripheral arterial disease. Three weeks ago underwent revascularization of the left femoral artery with stent and angioplasty. Last night developed severe pain and numbness in the left leg. Patient states she contacted Dr. Love who referred her to the ED where she presented this morning. ER course was notable for: (1) Afebrile, vital signs stable (2) CXR: congestive changes (3) K 3.0; given 40 PO x 1 (4) ECG SR @ 88bpm; LBBB seen on previous ECGs (5) heparin drip started Recent Travel: No PAST MEDICAL HISTORY: Hypertension Hyperlipidemia Coronary artery disease Peripheral arterial disease COPD PAST SURGICAL HISTORY: Cardiac stents Bilateral femoral artery stents Revascularization of left femoral artery with stent and angioplasy (02/24/17) Social History: Smoking: Alcohol: Drugs: Family History: Allergies No Known Allergies Allergy (Verified 03/20/17 08:58) HOME MEDICATIONS: Home Medications Medication Instructions Recorded Bromfenac Sodium 1.7 ml OS DAILY 02/19/17 Clopidogrel Bisulfate [Plavix -] 75 mg PO DAILY 02/19/17 Furosemide [Lasix -] 40 mg PO PRN 02/19/17 Gabapentin 600 mg PO QID 02/19/17 Montelukast Na [Singulair -] 10 mg PO HS 02/19/17 Ofloxacin 0.3% Ophth Soln [Ocuflox 1 drop OS QID 02/19/17 -] Potassium Bicarbonate/Cit AC 20 meq PO DAILY 02/19/17 [Effer-K 20 Meq Tablet Eff] Prednisolone 1% Ophthalmic [Pred 1 drop OS QID 02/19/17 Forte 1% -] Simvastatin 40 mg PO HS 02/19/17 Verapamil HCl ER [Calan Sr -] 180 mg PO DAILY 02/19/17 Lisinopril [Prinivil] 20 mg PO DAILY #30 tablet 02/28/17 Nicotine Patch [Nicoderm Patch -] 1 patch TD DAILY #30 patch 02/28/17 Nystatin Oral Suspension - 500,000 units PO Q6H 6 Days #1 cup 02/28/17 [Nystatin Oral Susp 268726 Units/5 ML -] Pantoprazole Sodium [Protonix -] 40 mg PO DAILY #30 tablet.ec 02/28/17 Prednisone 10 mg PO ASDIR #50 tablet 02/28/17 Tiotropium [place] [Spiriva] 1 puff IH DAILY #1 inh 02/28/17 REVIEW OF SYSTEMS CONSTITUTIONAL: Absent: fever, chills, diaphoresis, generalized weakness, malaise, loss of appetite, weight change HEENT: Absent: rhinorrhea, nasal congestion, throat pain, throat swelling, difficulty swallowing, mouth swelling, ear pain, eye pain, visual changes CARDIOVASCULAR: +pain in left leg; feels something "clogged" in right leg Absent: chest pain, syncope, palpitations, irregular heart rate, lightheadedness , peripheral edema RESPIRATORY: Absent: cough, shortness of breath, dyspnea with exertion, orthopnea, wheezing, stridor, hemoptysis GASTROINTESTINAL: Absent: abdominal pain, abdominal distension, nausea, vomiting, diarrhea, constipation, melena, hematochezia GENITOURINARY: Absent: dysuria, frequency, urgency, hesitancy, hematuria, flank pain, genital pain MUSCULOSKELETAL: Absent: myalgia, arthralgia, joint swelling, back pain, neck pain SKIN: Absent: rash, itching, pallor HEMATOLOGIC/IMMUNOLOGIC: Absent: easy bleeding, easy bruising, lymphadenopathy, frequent infections ENDOCRINE: Absent: unexplained weight gain, unexplained weight loss, heat intolerance, cold intolerance NEUROLOGIC: Absent: headache, focal weakness or paresthesias, dizziness, unsteady gait, seizure, mental status changes, bladder or bowel incontinence PSYCHIATRIC: Absent: anxiety, depression, suicidal or homicidal ideation, hallucinations. PHYSICAL EXAMINATION Vital Signs - 24 hr 03/20/17 03/20/17 03/20/17 08:54 09:28 12:09 Temperature 97.8 F Pulse Rate 101 H Pulse Rate [ 76 Apical] Respiratory 20 18 Rate Blood Pressure 128/55 Blood Pressure 134/66 [Right Arm] O2 Sat by Pulse 96 97 95 Oximetry (%) GENERAL: Awake, alert, and fully oriented, in moderate to acute distress secondary to pain in left leg HEAD: Normal with no signs of trauma. EYES: Pupils equal, round and reactive to light, extraocular movements intact, sclera anicteric, conjunctiva clear. No lid lag. EARS, NOSE, THROAT: Ears normal, nares patent, oropharynx clear without exudates. Moist mucous membranes. NECK: Normal range of motion, supple without lymphadenopathy, JVD, or masses. LUNGS: Diffuse crackles HEART: RRR, S1, S2 ABDOMEN: Soft, nontender, not distended, normoactive bowel sounds, no guarding, no rebound, no masses. No hepatomegaly or splenomegaly. UPPER EXTREMITIES: 2+ pulses, warm, well-perfused. No cyanosis. No clubbing. No peripheral edema. RIGHT LOWER EXTREMITY: pulses not palpable nor dopplerable; foot and leg are warm, trace edema LEFT LOWER EXTREMITy: pulses not palpable nor dopplerable; foot and leg are cool from toes to knee; exquisitely tender NEUROLOGICAL: Cranial nerves II-XII intact. Laboratory Results - last 24 hr 03/20/17 03/20/17 03/20/17 09:30 09:30 09:30 WBC 7.9 RBC 3.14 L Hgb 11.5 D Hct 34.1 MCV 108.8 H MCH 36.7 H MCHC 33.8 RDW 16.5 H D Plt Count 283 D MPV 8.0 D Neutrophils % 76.5 Lymphocytes % 12.3 D Monocytes % 9.3 D Eosinophils % 1.1 D Basophils % 0.8 D PT with INR 12.70 H INR 1.12 Sodium 137 Potassium 3.0 L Chloride 100 Carbon Dioxide 29 Anion Gap 8 BUN 12 Creatinine 1.1 H Creat Clearance w eGFR 49.39 Random Glucose 107 H Calcium 8.2 L Total Bilirubin 0.9 D AST 23 D ALT 19 Alkaline Phosphatase 81 Total Protein 6.3 L Albumin 3.4 Blood Type Antibody Screen 03/20/17 09:30 WBC RBC Hgb Hct MCV MCH MCHC RDW Plt Count MPV Neutrophils % Lymphocytes % Monocytes % Eosinophils % Basophils % PT with INR INR Sodium Potassium Chloride Carbon Dioxide Anion Gap BUN Creatinine Creat Clearance w eGFR Random Glucose Calcium Total Bilirubin AST ALT Alkaline Phosphatase Total Protein Albumin Blood Type A POSITIVE Antibody Screen Negative ASSESSMENT & PLAN 66 year-old female with a PMH significant for HTN, HLD, CAD s/p stent, COPD, and peripheral arterial disease. Three weeks ago underwent revascularization of the left femoral artery with stent and angioplasty. Admitted today for cold, numb LLE. 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 Morgan en route Intramuscular hematoma left rectus abdominus --measures 3.7 x 8.0cm --Hgb 11.5; cbc now and q6h CAD s/p stent --02/23 Echo: LV normal; RV normal; LAE; mild MR; mild TR --holding ASA, plavix pending surgery Pulmonary congestion --seen on CXR; is on home lasix --Lasix IV 40mg x 1 Hypokalemia --replete with IV and PO Hypertension --continue lisinopril, verapamil Hyperlipidemia --continue Lipitor COPD --stable --continue Spiriva, singulair --duonebs PRN FEN Fluids: NS @ 42mL/hr while NPO Electrolytes: replete as indicated Nutrition: NPO DVT prophylaxis: hold chemical prophylaxis; SCD on right leg only Physical therapy Dispo: continues to require inpatient care. Full code. Visit type - Emergency Visit Emergency Visit: Yes ED Registration Date: 03/20/17 Care time: The patient presented to the Emergency Department on the above date and was hospitalized for further evaluation of their emergent condition. - New Patient This patient is new to me today: Yes Date on this admission: 03/20/17 - Critical Care Critical Care patient: Yes Total Critical Care Time (in minutes): 60 Critical Care Statement: The care of this patient involved high complexity decision making to prevent further life threatening deterioration of the patient 's condition and/or to evaluate & treat vital organ system(s) failure or risk of failure.
[2017-03-20] MEDS ORDERED: POTASSIUM CHLORIDE TABS 20 MEQ TABLET.ER (FP) PO ONE ×2 (15:10)
[2017-03-20] MEDS ORDERED: HYDROmorphone HCL CARPU-JECT 2 MG/1 ML DISP.SYRIN IVPUSH ONE (16:30)
--- NOTE | 2017-03-20 16:33 | EKG ---
Test Reason : Blood Pressure : / mmHG Vent. Rate : 088 BPM Atrial Rate : 088 BPM P-R Int : 120 ms QRS Dur : 136 ms QT Int : 428 ms P-R-T Axes : 000 -31 139 degrees QTc Int : 517 ms NORMAL SINUS RHYTHM LEFT AXIS DEVIATION LEFT BUNDLE BRANCH BLOCK ABNORMAL ECG WHEN COMPARED WITH ECG OF 18-FEB-2017 22:51, PREMATURE ATRIAL COMPLEXES ARE NO LONGER PRESENT Confirmed by SMITA ANGLIN MD ([id number]) on 03/20/2017 4:32:43 PM Referred By: Confirmed By:SMITA ANGLIN MD
[2017-03-20] MEDS ORDERED: FUROSEMIDE 40 MG/4 ML INJECTABLE VIAL IVPUSH ONE (16:44)
[2017-03-20] MEDS ORDERED: KCL 10 MEQ IVPB 10 MEQ/100 ML INFUS.BAG IVPB SCH (16:45)
[2017-03-20] MEDS ORDERED: SODIUM CHLORIDE 1,000 ML IV SCH ×2 (16:45→18:15)
[2017-03-20] MEDS ORDERED: SODIUM CHLORIDE 100 ML with POTASSIUM CHLORIDE 10 MEQ IVPB SCH (17:30)
[2017-03-20 17:40] VITALS: BMI 3936.8
[2017-03-20] MEDS: HEPARIN SOD,PORK IN 0.45% NACL 25,000 UNITS/500 ML INFUS.BAG IVPB SCH (17:56)
[2017-03-20] MEDS ORDERED: ALBUTEROL SO4 2.5/IPRATROPIUM 0.5 INH SOL 3 ML VIAL.NEB. NEB PRN (18:12)
[2017-03-20] MEDS: POTASSIUM CHLORIDE 10 MEQ in SODIUM CHLORIDE 100 ML IVPB SCH ×2 (18:19→19:30)
[2017-03-20] MEDS: OFLOXACIN 0.3% OPHTHALMIC SOLUTION 5 ML BOTTLE OS SCH (18:20)
[2017-03-20] MEDS: prednisoLONE ACETATE 1% OPHTH SUSP 5 ML BOTTLE OS SCH (18:20)
[2017-03-20 18:32] LABS: HEMOGLOBIN 10.3 GM/dL (10.7-15.3); MCH 36.1 pg (25.7-33.7); MCHC 33.1 g/dl (32.0-36.0); MEAN CELL VOLUME 109.1 fl (80-96); MEAN PLT VOLUME 8.1 fl (7.5-11.1); PLATELET COUNT 292 K/MM3 (134-434); RBC 2.85 M/mm3 (3.60-5.2); RDW 16.5 % (11.6-15.6); WHITE BLOOD COUNT 6.8 K/mm3 (4.0-10.0)
[2017-03-20 18:34] LABS: ADD RBC MORPHOLOGY YES
--- NOTE | 2017-03-20 18:35 | CONSULT ---
Consult - History of Present Illness History of Present Illness: 66 year old woman smoker with history of PAD. In February she was admitted with left leg pain and an occluded left femoral artery stent was treated with revascularization and placement of Viabahn covered stents from origin of SFA to popliteal artery. There was no continuous distal runoff except for tibial collaterals. She was discharged on aspirin and Plavix. She states she started to feel numbness in the left foot several days ago and called me last night that it was getting worse. I advised her at that time to come to the hospital but she did not present until this morning. A CTA shows that the SFA stent, popliteal and distal vessels are occluded. She is having more pain now as well. - Past Medical History [employer]: Yes: Peripheral Neuropathy Cardio/Vascular: Yes: CAD, HTN, Hyperlipdemia, Other (Cardiac stents placed, history of peripheral vascular disease) Pulmonary: Yes: COPD, Other (Former smoker) - Past Surgical History Past Surgical History: Yes: Joint Replacement (left knee), Stent - Alcohol/Substance Use Hx Alcohol Use: Yes (SOCIAL) - Smoking History Smoking history: Former smoker Have you smoked in the past 12 months: Yes Aproximately how many cigarettes per day: 2 If you are a former smoker, when did you quit?: 2 WKS Home Medications - Allergies Allergies/Adverse Reactions: Allergies Allergy/AdvReac Type Severity Reaction Status Date / Time No Known Allergies Allergy Verified 03/20/17 08:58 - Home Medications Home Medications: Ambulatory Orders Bromfenac Sodium 1.7 ml OS DAILY 02/19/17 Clopidogrel Bisulfate [Plavix -] 75 mg PO DAILY 02/19/17 Furosemide [Lasix -] 40 mg PO PRN 02/19/17 Gabapentin 600 mg PO QID 02/19/17 Montelukast Na [Singulair -] 10 mg PO HS 02/19/17 Ofloxacin 0.3% Ophth Soln [Ocuflox -] 1 drop OS QID 02/19/17 Potassium Bicarbonate/Cit AC [Effer-K 20 Meq Tablet Eff] 20 meq PO DAILY Prednisolone 1% Ophthalmic [Pred Forte 1% -] 1 drop OS QID 02/19/17 Simvastatin 40 mg PO HS 02/19/17 Verapamil HCl ER [Calan Sr -] 180 mg PO DAILY 02/19/17 Lisinopril [Prinivil] 20 mg PO DAILY #30 tablet 02/28/17 Nicotine Patch [Nicoderm Patch -] 1 patch TD DAILY #30 patch 02/28/17 Nystatin Oral Suspension - [Nystatin Oral Susp 777090 Units/5 ML -] 500,000 units PO Q6H 6 Days #1 cup 02/28/17 Pantoprazole Sodium [Protonix -] 40 mg PO DAILY #30 tablet.ec 02/28/17 Prednisone 10 mg PO ASDIR #50 tablet 02/28/17 Tiotropium [place] [Spiriva] 1 puff IH DAILY #1 inh 02/28/17 Physical Exam Vital Signs: Vital Signs Temperature 99.1 F 03/20/17 16:44 Pulse Rate 77 03/20/17 16:44 Respiratory Rate 20 03/20/17 16:44 Blood Pressure 143/73 03/20/17 16:44 O2 Sat by Pulse Oximetry (%) 88 L 03/20/17 17:09 Constitutional: Yes: Anxious Gastrointestinal: Yes: Soft Extremities: Yes: Pallor (Left foot cool and pale. Some movement and sensation in toes. Calf tender to palpation.) Problem List - Problems (1) Arterial occlusion, lower extremity Assessment/Plan: Acute occlusion of SFA stent with severe distal arterial disease and no continuous vessels to foot. Plan exploration of popliteal artery and thrombectomy. Possible bypass to distal peroneal artey. Code(s): I70.209 - [facility] ATHSCL [place] DEE-NI' ARTERIES OF EXTREMITIES, UNSP EXTREMITY
[2017-03-20 18:59] LABS: ANISOCYTOSIS 1+; PLATELET ESTIMATE ADEQUATE
[2017-03-20 19:08] LABS: ALBUMIN 3.2 g/dl (3.4-5.0); ANION GAP 9 (8-16); BLOOD UREA NITROGEN 12 mg/dL (7-18); CALCIUM 7.4 mg/dL (8.5-10.1); CHLORIDE 103 mmol/L (98-107); CO2 27 mmol/L (21-32); GLUCOSE,RANDOM 87 mg/dL (74-106); MAGNESIUM 1.2 mg/dL (1.8-2.4); POTASSIUM 3.4 mmol/L (3.5-5.1); SODIUM 139 mmol/L (136-145)
[2017-03-20 19:12] LABS: ALK PHOS 74 U/L (45-117); BILIRUBIN,TOTAL 0.6 mg/dL (0.2-1.0); CREATININE 0.8 mg/dL (0.55-1.02); PHOSPHOROUS 4.9 mg/dL (2.5-4.9); SGOT/AST 39 U/L (15-37); SGPT/ALT 21 U/L (12-78); TOT PROT 5.7 g/dl (6.4-8.2)
[2017-03-20] MEDS ORDERED: PAPAVERINE HCL 30 MG/1 ML 10 ML VIAL NR ONE (19:16)
[2017-03-20] MEDS ORDERED: HEPARIN NA (PORCINE) 5,000 UNITS/ML 1ML VIAL ONE (19:17)
[2017-03-20] MEDS ORDERED: LIDOCAINE HCL 1%, 10 MG/ML (20ML VIAL) ONE (19:17)
[2017-03-20] MEDS ORDERED: MIDAZOLAM HCL 2 MG/2 ML SINGLE DOSE VIAL ONE ×2 (20:10)
[2017-03-20] MEDS ORDERED: ceFAZolin SODIUM 1 GM VIAL IVPB ONE (20:18)
--- NOTE | 2017-03-20 21:24 | CONSULT ---
Consult - text type - Consultation Consultation Note: CCM: Pt seen and examined in ICU CC: L leg pn, POD #0 after L #### HPI: Briefly Ms Liu is a 66 year-old female with a PMH significant for HTN, HLD, CAD s/p stent (unk BM?) , COPD on diaily pred:: s, and peripheral arterial disease s/p L SFA stent . Three weeks ago underwent revascularization of the left femoral artery with stent and angioplasty she was discharged on dual antiplt (ASA and plavix). On night of 03/19 she began c/o severe pain and numbness in the left leg, called Dr Morgan who advised her to come to ED. Pt waited until morning and presented to ED with cold LLE. CTA with runoff showed occulusion of SFA and popiteal. Taken to OR this evening. Past Medical History [employer] Peripheral Neuropathy Cardio/Vascular CAD (Cardiac stents placed, history of peripheral vascular disease),HTN,Hyperlipdemia, Other Pulmonary COPD (Former smoker),Other Past Surgical History Past Surgical History Joint Replacement (left knee),Stent Social History Smoking history Former smoker Have you smoked in the past 12 Yes months Hx Alcohol Use Yes: SOCIAL Ambulatory Orders Bromfenac Sodium 1.7 ml OS DAILY 02/19/17 Clopidogrel Bisulfate [Plavix -] 75 mg PO DAILY 02/19/17 Furosemide [Lasix -] 40 mg PO PRN 02/19/17 Gabapentin 600 mg PO QID 02/19/17 Montelukast Na [Singulair -] 10 mg PO HS 02/19/17 Ofloxacin 0.3% Ophth Soln [Ocuflox -] 1 drop OS QID 02/19/17 Potassium Bicarbonate/Cit AC [Effer-K 20 Meq Tablet Eff] 20 meq PO DAILY Prednisolone 1% Ophthalmic [Pred Forte 1% -] 1 drop OS QID 02/19/17 Simvastatin 40 mg PO HS 02/19/17 Verapamil HCl ER [Calan Sr -] 180 mg PO DAILY 02/19/17 Lisinopril [Prinivil] 20 mg PO DAILY #30 tablet 02/28/17 Nicotine Patch [Nicoderm Patch -] 1 patch TD DAILY #30 patch 02/28/17 Nystatin Oral Suspension - [Nystatin Oral Susp 441827 Units/5 ML -] 500,000 units PO Q6H 6 Days #1 cup 02/28/17 Pantoprazole Sodium [Protonix -] 40 mg PO DAILY #30 tablet.ec 02/28/17 Prednisone 10 mg PO ASDIR #50 tablet 02/28/17 Tiotropium [place] [Spiriva] 1 puff IH DAILY #1 inh 02/28/17 Current Medications Albuterol/Ipratropium (Duoneb -) 1 amp NEB Q6H PRN PRN Reason: SHORTNESS OF BREATH Atorvastatin Calcium (Lipitor -) 20 mg PO [facility] Last Admin: 03/21/17 03:28 Dose: Not Given Clopidogrel Bisulfate (Plavix -) 75 mg PO DAILY [facility] Hydromorphone HCl (Dilaudid Injection -) 2 mg IVPB Q4H PRN PRN Reason: PAIN LEVEL 6-10 Hydromorphone HCl (Dilaudid Injection -) 1 mg IVPB Q3H PRN PRN Reason: PAIN LEVEL 1-5 Hydromorphone HCl (Dilaudid Injection -) 2 mg IVPB Q3H PRN PRN Reason: PAIN LEVEL 6-10 HEPARIN SOD,PORK IN 0.45% NACL (Heparin-1/2ns 25,000 Units/500) 25,000 units in 500 mls @ 22 mls/hr IVPB TITR JULIET; 1,100 UNITS/HR PRN Reason: Protocol Last Admin: 03/21/17 01:30 Dose: 1,100 units/hr, 22 mls/hr Sodium Chloride (Normal Saline -) 1,000 mls @ 42 mls/hr IV ASDIR [facility] Last Admin: 03/20/17 18:30 Dose: 42 mls/hr Cefazolin Sodium (Ancef -) 1 gm in 10 mls @ 100 mls/hr IVPUSH Q8H-IV JULIET Stop: 03/21/17 10:05 Last Admin: 03/21/17 01:41 Dose: 100 mls/hr Lactated Ringer's (Lactated Ringers Solution) 1,000 ml in 1,000 mls @ 100 mls/ hr IV ASDIR JULIET Last Admin: 03/21/17 03:28 Dose: Not Given Lisinopril (Prinivil) 20 mg PO DAILY [facility] Montelukast Sodium (Singulair -) 10 mg PO [facility] Last Admin: 03/21/17 03:28 Dose: Not Given Non-Formulary Medication (Bromfenac Sodium [Bromfenac Sodium]) 1.7 ml OS DAILY [facility] Ofloxacin (Ocuflox 0.3% Eye Drops -) 1 drop OS QID [facility] Last Admin: 03/21/17 03:28 Dose: Not Given Ondansetron HCl (Zofran Injection) 4 mg IVPUSH Q6H PRN PRN Reason: NAUSEA AND/OR VOMITING Oxycodone HCl (Roxicodone -) 5 mg PO Q4H PRN PRN Reason: Pain Level > 4 Stop: 03/21/17 23:32 Pantoprazole Sodium (Protonix -) 40 mg PO DAILY [facility] Prednisolone Acetate (Pred Forte 1% -) 1 drop OS QID [facility] Last Admin: 03/21/17 03:28 Dose: Not Given Tiotropium [place] (Spiriva -) 1 puff IH DAILY [facility] Verapamil HCl (Calan Sr -) 180 mg PO DAILY [facility] Vital Signs Temp 99.1 F 03/20/17 16:44 Pulse 77 03/20/17 16:44 Resp 20 03/20/17 16:44 BP 143/73 03/20/17 16:44 Pulse Ox 88 L 03/20/17 17:09 Intake & Output 03/19/17 03/20/17 03/20/17 23:59 11:59 23:59 Intake Total 300 Balance 300 Weight 63.503 kg 63.503 kg Intake: IV 0 IVPB 300 Oral 0 Other: Voiding Method Diaper Bedpan Height 5 ft 5 in Body Mass Index (BMI) 27.3 3936.8 Weight Measurement Method Stated by Caregiver CBCD WBC 6.8 K/mm3 (4.0-10.0) 03/20/17 17:35 RBC 2.85 M/mm3 (3.60-5.2) L 03/20/17 17:35 Hgb 10.3 GM/dL (10.7-15.3) L D 03/20/17 17:35 Hct 31.0 % (32.4-45.2) L 03/20/17 17:35 MCV 109.1 fl (80-96) H 03/20/17 17:35 MCHC 33.1 g/dl (32.0-36.0) 03/20/17 17:35 RDW 16.5 % (11.6-15.6) H 03/20/17 17:35 Plt Count 292 K/MM3 (134-434) 03/20/17 17:35 MPV 8.1 fl (7.5-11.1) 03/20/17 17:35 CMP Sodium 139 mmol/L (136-145) 03/20/17 17:35 Potassium 3.4 mmol/L (3.5-5.1) L 03/20/17 17:35 Chloride 103 mmol/L (98-107) 03/20/17 17:35 Carbon Dioxide 27 mmol/L (21-32) 03/20/17 17:35 Anion Gap 9 (8-16) 03/20/17 17:35 BUN 12 mg/dL (7-18) 03/20/17 17:35 Creatinine 0.8 mg/dL (0.55-1.02) 03/20/17 17:35 Creat Clearance w eGFR > 60 (>60) 03/20/17 17:35 Random Glucose 87 mg/dL (74-106) 03/20/17 17:35 Calcium 7.4 mg/dL (8.5-10.1) L 03/20/17 17:35 Total Bilirubin 0.6 mg/dL (0.2-1.0) D 03/20/17 17:35 AST 39 U/L (15-37) H D 03/20/17 17:35 ALT 21 U/L (12-78) 03/20/17 17:35 Alkaline Phosphatase 74 U/L (45-117) 03/20/17 17:35 Total Protein 5.7 g/dl (6.4-8.2) L 03/20/17 17:35 Albumin 3.2 g/dl (3.4-5.0) L 03/20/17 17:35 ROS: 10pt review negative except as per HPI CTA reviewed: occluded stent, R dissection noted (Dr Morgan aware) CXR: no infiltrate EKG: LBBB (uncjhanged), no obvious ischemic changes PE: GEn: well nourished, INAD HEENT: EOMI, no jvd PULM: no distress, clear anterior CV: RRR, no mr//g appreciate ABD: soft, NT, ND EXT: LLE with dressings CDI, 1+ pulse DP, PD present, R warm with good pulse as well, slight decrease sedation on L , mvt intact Neuro: non focal, awake A/ 66 y/o woman with CAD and PAD hx of L SFA occlusion and stent presents with reocclusion, no s/p thrombectomy of stent with good distal perfusion resumed P/ -heparin gtt -restart ASA and plavix as per Dr Scott -serial dopplers and pulse checks -pain control (dilaudid PRN) -restart home meds in am -overnight observation in ICU Yusuf Bagley ACNP [id number]
[2017-03-20] MEDS ORDERED: ePHEDrine SULFATE 50 MG/1 ML AMPULE ONE (22:02)
[2017-03-20] MEDS ORDERED: KETOROLAC TROMETHAMINE 30 MG/1 ML VIAL ONE (22:02)
[2017-03-20] MEDS ORDERED: DEXAMETHASONE SOD PHOSPHATE 4 MG/1 ML VIAL ONE (22:03)
[2017-03-20] MEDS ORDERED: POVIDONE-IODINE OINTMENT 10% - 28.4 GM TUBE ONE (22:55)
[2017-03-20] MEDS ORDERED: POVIDONE-IODINE OINTMENT 10% - 28.4 GM TUBE TP ONE (23:15)
[2017-03-20] MEDS ORDERED: PROMETHAZINE HCL 25 MG/1 ML VIAL IVPB PRN (23:33)
[2017-03-20] MEDS ORDERED: oxyCODONE HCL 5 MG TABLET PO PRN (23:33)
[2017-03-20] MEDS ORDERED: ONDANSETRON 4 MG/2 ML VIAL IVPUSH PRN (23:33)
--- NOTE | 2017-03-20 23:33 | OP ---
Operative Note - Note: Operative Date: 03/20/17 Pre-Operative Diagnosis: Occlusion left femoral and popliteal arteries, severe ischemia left leg Operation: Left femoral and popliteal thrombectomy, angiogram, popliteal anterior tibial bypass with non-reversed saphenous vein. Findings: Thrombosed femoral and popliteal arteries. Patent distal anterior tibial artery Post-Operative Diagnosis: Same as Pre-op Surgeon: Abrahan Morgan Anesthesiologist/PALLIATIVE CARE PHYSICIAN: Nirmal Brothers Anesthesia: General Specimens Removed: Clot and plaque from left popliteal artery Estimated Blood Loss (mls): 100
[2017-03-20] MEDS ORDERED: HYDROmorphone HCL CARPU-JECT 1 MG/1 ML DISP.SYRIN IVPB PRN (23:37)
[2017-03-20] MEDS ORDERED: HYDROmorphone HCL CARPU-JECT 2 MG/1 ML DISP.SYRIN IVPB PRN (23:37)
[2017-03-20] MEDS ORDERED: LACTATED RINGERS SOLUTION 1,000 ML IV SCH (23:45)
[2017-03-21 00:29] LABS: HEMATOCRIT 32.3 % (32.4-45.2); RDW 16.9 % (11.6-15.6)
[2017-03-21 00:35] LABS: HEMOGLOBIN 10.6 GM/dL (10.7-15.3); MCH 36.2 pg (25.7-33.7); MCHC 32.9 g/dl (32.0-36.0); MEAN CELL VOLUME 109.9 fl (80-96); MEAN PLT VOLUME 8.3 fl (7.5-11.1); PLATELET COUNT 303 K/MM3 (134-434); RBC 2.94 M/mm3 (3.60-5.2); WHITE BLOOD COUNT 7.2 K/mm3 (4.0-10.0)
[2017-03-21 00:57] LABS: ANION GAP 10 (8-16); BLOOD UREA NITROGEN 12 mg/dL (7-18); CALCIUM 7.7 mg/dL (8.5-10.1); CHLORIDE 106 mmol/L (98-107); CO2 27 mmol/L (21-32); CREATININE 1.1 mg/dL (0.55-1.02); GLUCOSE,RANDOM 102 mg/dL (74-106); POTASSIUM 4.1 mmol/L (3.5-5.1); SODIUM 143 mmol/L (136-145)
[2017-03-21] MEDS: HEPARIN SOD,PORK IN 0.45% NACL 25,000 UNITS/500 ML INFUS.BAG IVPB SCH ×2 (01:30→21:32)
[2017-03-21] MEDS: CEFAZOLIN 1 GM PUSH 1 GM/10 ML DISP.SYRIN IVPUSH SCH ×2 (01:41→10:36)
[2017-03-21] MEDS: LACTATED RINGERS SOLUTION 1,000 ML/1,000 ML INFUS.BAG IV SCH ×2 (01:42→03:28)
[2017-03-21] MEDS: POTASSIUM CHLORIDE 10 MEQ in SODIUM CHLORIDE 100 ML IVPB SCH (03:27)
[2017-03-21] MEDS: MONTELUKAST NA 10 MG TABLET PO SCH ×2 (03:28→21:45)
[2017-03-21] MEDS: ATORVASTATIN CA 20 MG TABLET (FP) PO SCH ×2 (03:28→21:45)
[2017-03-21] MEDS: OFLOXACIN 0.3% OPHTHALMIC SOLUTION 5 ML BOTTLE OS SCH ×5 (03:28→22:56)
[2017-03-21] MEDS: prednisoLONE ACETATE 1% OPHTH SUSP 5 ML BOTTLE OS SCH ×5 (03:28→22:56)
[2017-03-21 06:22] LABS: BASO % 0.1 % (0-2.0); HEMATOCRIT 29.4 % (32.4-45.2); LYMPH % 5.8 % (8-40); MCH 36.9 pg (25.7-33.7); MEAN CELL VOLUME 108.7 fl (80-96); MEAN PLT VOLUME 8.1 fl (7.5-11.1); MONO % 9.4 % (3.8-10.2); NEUT % 84.7 % (42.8-82.8); PLATELET COUNT 299 K/MM3 (134-434); RBC 2.71 M/mm3 (3.60-5.2); RDW 16.7 % (11.6-15.6); WHITE BLOOD COUNT 6.6 K/mm3 (4.0-10.0)
[2017-03-21 07:08] LABS: CHLORIDE 108 mmol/L (98-107); POTASSIUM 4.3 mmol/L (3.5-5.1); SODIUM 142 mmol/L (136-145)
[2017-03-21 07:19] LABS: ALBUMIN 2.7 g/dl (3.4-5.0); ALK PHOS 65 U/L (45-117); ANION GAP 10 (8-16); BILIRUBIN,TOTAL 0.4 mg/dL (0.2-1.0); BLOOD UREA NITROGEN 13 mg/dL (7-18); CO2 24 mmol/L (21-32); CREATININE 0.8 mg/dL (0.55-1.02); GLUCOSE,RANDOM 114 mg/dL (74-106); MAGNESIUM 1.2 mg/dL (1.8-2.4); PHOSPHOROUS 5.1 mg/dL (2.5-4.9); SGOT/AST 240 U/L (15-37); SGPT/ALT 42 U/L (12-78); TOT PROT 5.2 g/dl (6.4-8.2)
[2017-03-21] MEDS ORDERED: MAGNESIUM SULF 50% (8.12 MEQ/2 ML-1 GM VIAL) IVPB ONE (07:40)
--- NOTE | 2017-03-21 08:28 | PN ---
Physical Exam: SUBJECTIVE: Patient seen and examined in ICU. Pain in right leg greatly relieved. Admits she might not have taken her ASA and Plavix everyday as she was supposed to. OBJECTIVE: Vital Signs Period Temp Pulse Resp BP Sys/Olguin Pulse Ox Last 24 Hr 97.8 F-99.1 F 72-101 12-20 104-244/46-73 88-98 GENERAL: The patient is awake, alert, and fully oriented, in no acute distress. LUNGS: Breath sounds equal, clear to auscultation bilaterally, no wheezes, no crackles, no accessory muscle use. HEART: Regular rate and rhythm, S1, S2 ABDOMEN: Soft, nontender, nondistended, normoactive bowel sounds, no guarding, no rebound UPPER EXTREMITIES: 2+ pulses, warm, well-perfused. No cyanosis. No clubbing. No peripheral edema. RIGHT LOWER EXTREMITY: pulses not palpable nor dopplerable; foot and leg are warm, trace edema LEFT LOWER EXTREMITy: foot and leg are warm, pink, palpable DP pulse NEUROLOGICAL: Cranial nerves II-XII intact. Laboratory Results - last 24 hr 03/20/17 03/20/17 03/20/17 09:30 09:30 09:30 WBC 7.9 RBC 3.14 L Hgb 11.5 D Hct 34.1 MCV 108.8 H MCH 36.7 H MCHC 33.8 RDW 16.5 H D Plt Count 283 D MPV 8.0 D Neutrophils % 76.5 Lymphocytes % 12.3 D Monocytes % 9.3 D Eosinophils % 1.1 D Basophils % 0.8 D Hypochromia Platelet Estimate Platelet Comment Polychromasia Anisocytosis PT with INR 12.70 H INR 1.12 PTT (Actin FS) Sodium 137 Potassium 3.0 L Chloride 100 Carbon Dioxide 29 Anion Gap 8 BUN 12 Creatinine 1.1 H Creat Clearance w eGFR 49.39 Random Glucose 107 H Calcium 8.2 L Phosphorus Magnesium Total Bilirubin 0.9 D AST 23 D ALT 19 Alkaline Phosphatase 81 Total Protein 6.3 L Albumin 3.4 Blood Type Antibody Screen 03/20/17 03/20/17 03/20/17 09:30 09:30 17:35 WBC RBC Hgb Hct MCV MCH MCHC RDW Plt Count MPV Neutrophils % Lymphocytes % Monocytes % Eosinophils % Basophils % Hypochromia Platelet Estimate Platelet Comment Polychromasia Anisocytosis PT with INR INR PTT (Actin FS) 28.1 43.6 H D Sodium Potassium Chloride Carbon Dioxide Anion Gap BUN Creatinine Creat Clearance w eGFR Random Glucose Calcium Phosphorus Magnesium Total Bilirubin AST ALT Alkaline Phosphatase Total Protein Albumin Blood Type A POSITIVE Antibody Screen Negative 03/20/17 03/20/17 03/21/17 17:35 17:35 00:01 WBC 6.8 7.2 RBC 2.85 L 2.94 L Hgb 10.3 L D 10.6 L Hct 31.0 L 32.3 L MCV 109.1 H 109.9 H MCH 36.1 H 36.2 H MCHC 33.1 32.9 RDW 16.5 H 16.9 H Plt Count 292 303 MPV 8.1 8.3 Neutrophils % No Result Required. Lymphocytes % No Result Required. Monocytes % Eosinophils % Basophils % Hypochromia Few Platelet Estimate Adequate Platelet Comment No clumping noted Polychromasia 1+ Anisocytosis 1+ PT with INR INR PTT (Actin FS) Sodium 139 Potassium 3.4 L Chloride 103 Carbon Dioxide 27 Anion Gap 9 BUN 12 Creatinine 0.8 Creat Clearance w eGFR > 60 Random Glucose 87 Calcium 7.4 L Phosphorus 4.9 Magnesium 1.2 L D Total Bilirubin 0.6 D AST 39 H D ALT 21 Alkaline Phosphatase 74 Total Protein 5.7 L Albumin 3.2 L Blood Type Antibody Screen 03/21/17 03/21/17 03/21/17 00:01 06:00 06:00 WBC 6.6 RBC 2.71 L Hgb 10.0 L Hct 29.4 L MCV 108.7 H MCH 36.9 H MCHC 34.0 RDW 16.7 H Plt Count 299 MPV 8.1 Neutrophils % 84.7 H Lymphocytes % 5.8 L D Monocytes % 9.4 Eosinophils % 0.0 D Basophils % 0.1 Hypochromia Platelet Estimate Platelet Comment Polychromasia Anisocytosis PT with INR INR PTT (Actin FS) Sodium 143 142 Potassium 4.1 4.3 Chloride 106 108 H Carbon Dioxide 27 24 Anion Gap 10 10 BUN 12 13 Creatinine 1.1 H 0.8 Creat Clearance w eGFR > 60 Random Glucose 102 114 H Calcium 7.7 L 7.0 L Phosphorus 5.1 H Magnesium 1.2 L Total Bilirubin 0.4 D AST 240 H D ALT 42 D Alkaline Phosphatase 65 Total Protein 5.2 L Albumin 2.7 L Blood Type Antibody Screen Active Medications Generic Name Dose Route Start Last Admin Trade Name Freq PRN Reason Stop Dose Admin Albuterol/Ipratropium 1 amp 03/20/17 18:12 Duoneb - NEB Q6H PRN SHORTNESS OF BREATH Atorvastatin Calcium 20 mg 03/20/17 22:00 03/21/17 03:28 Lipitor - PO Not Given HS JULIET Clopidogrel Bisulfate 75 mg 03/21/17 10:00 Plavix - PO DAILY JULIET Hydromorphone HCl 2 mg 03/20/17 16:59 Dilaudid Injection - IVPB Q4H PRN PAIN LEVEL 6-10 Hydromorphone HCl 1 mg 03/20/17 23:37 Dilaudid Injection - IVPB Q3H PRN PAIN LEVEL 1-5 Hydromorphone HCl 2 mg 03/20/17 23:37 Dilaudid Injection - IVPB Q3H PRN PAIN LEVEL 6-10 HEPARIN SOD,PORK IN 0.45% NACL 25,000 units in 500 mls @ 22 mls/hr 03/20/17 18 :00 03/21/17 01:30 Heparin-1/2ns 25,000 Units/500 IVPB 1,100 units/hr TITR JULIET 22 mls/hr Protocol Administration 1,100 UNITS/HR Sodium Chloride 1,000 mls @ 42 mls/hr 03/20/17 18:15 03/20/17 18:30 Normal Saline - IV 42 mls/hr ASDIR JULIET Administration Cefazolin Sodium 1 gm in 10 mls @ 100 mls/hr 03/20/17 23:45 03/21/17 01:41 Ancef - IVPUSH 03/21/17 10:05 100 mls/hr Q8H-IV JULIET Administration Lactated Ringer's 1,000 ml in 1,000 mls @ 100 mls/hr 03/20/17 23:45 03/21/17 03:28 Lactated Ringers Solution IV Not Given ASDIR JULIET Lisinopril 20 mg 03/21/17 10:00 Prinivil PO DAILY JULIET Magnesium Sulfate 2 gm 03/21/17 07:40 Magnesium Sulfate IVPB 03/21/17 07:41 ONCE ONE Montelukast Sodium 10 mg 03/20/17 22:00 03/21/17 03:28 Singulair - PO Not Given HS JULIET Non-Formulary Medication 1.7 ml 03/21/17 10:00 Bromfenac Sodium [Bromfenac Sodium] OS DAILY [facility] Ofloxacin 1 drop 03/20/17 18:00 03/21/17 03:28 Ocuflox 0.3% Eye Drops - OS Not Given QID [facility] Ondansetron HCl 4 mg 03/20/17 23:33 Zofran Injection IVPUSH Q6H PRN NAUSEA AND/OR VOMITING Oxycodone HCl 5 mg 03/20/17 23:33 Roxicodone - PO 03/21/17 23:32 Q4H PRN Pain Level > 4 Pantoprazole Sodium 40 mg 03/21/17 10:00 Protonix - PO DAILY [facility] Prednisolone Acetate 1 drop 03/20/17 18:00 03/21/17 03:28 Pred Forte 1% - OS Not Given QID [facility] Tiotropium [place] 1 puff 03/21/17 10:00 Spiriva - IH DAILY [facility] Verapamil HCl 180 mg 03/21/17 10:00 Calan Sr - PO DAILY [facility] ASSESSMENT/PLAN 66 year-old female with a PMH significant for HTN, HLD, CAD s/p stent, COPD, and peripheral arterial disease. Three weeks ago underwent revascularization of the left femoral artery with stent and angioplasty. 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 --03/20/17: left femoral and popliteal thrombectomy, angiogram, popliteal anterior tibial bypass with non-reversed saphenous vein (Eddie); foot and leg are pink, warm, palpable pulses --continue heparin drip, PTT goal 60-80; start bridge to coumadin tomorrow --restart ASA, Plavix per Eddie --serial dopplers and pulse checks Intramuscular hematoma left rectus abdominus --measures 3.7 x 8.0cm --Hgb stable CAD s/p stent --02/23 Echo: LV normal; RV normal; LAE; mild MR; mild TR --resume ASA, Plavix Pulmonary congestion --CXR on admission showed some congestion; Lasix IV 40mg x 1 given pre- operatively --repeat CXR today better aeration right base but evidence of infiltrate or atelectasis with fluid left base --02/22/17 Echo: LV normal; RV normal; LAE; mild MR; mild TR --no fever, no leukocytosis, no antibiotics for now Hypertension --continue lisinopril, verapamil Hyperlipidemia --continue Lipitor COPD --stable --continue Spiriva, singulair --duonebs PRN Hypomagnesemia --repleted FEN Fluids: PO intake adequate Electrolytes: replete as indicated Nutrition: low sodium DVT prophylaxis: on heparin drip; start bridge to coumadin tomorrow Physical therapy Dispo: continues to require inpatient care. Full code. Visit type - Emergency Visit Emergency Visit: Yes ED Registration Date: 03/20/17 Care time: The patient presented to the Emergency Department on the above date and was hospitalized for further evaluation of their emergent condition. - New Patient This patient is new to me today: No - Critical Care Critical Care patient: Yes Total Critical Care Time (in minutes): 35 Critical Care Statement: The care of this patient involved high complexity decision making to prevent further life threatening deterioration of the patient 's condition and/or to evaluate & treat vital organ system(s) failure or risk of failure.
[2017-03-21] MEDS ORDERED: PT OWN MED DRAWER 7, Y5N ONE ×2 (08:54→09:30)
[2017-03-21] MEDS: LISINOPRIL 20 MG TABLET (FP) PO SCH (09:24)
[2017-03-21] MEDS: PANTOPRAZOLE 40 MG TABLET (FP) PO SCH (09:25)
[2017-03-21] MEDS: VERAPAMIL HCL 180 MG E.R. TABLET (FP) PO SCH (09:31)
[2017-03-21] MEDS: HYDROmorphone HCL CARPU-JECT 2 MG/1 ML DISP.SYRIN IVPB PRN ×3 (09:32→21:45)
[2017-03-21] MEDS ORDERED: BROMFENAC SODIUM OS SCH (10:00)
[2017-03-21] MEDS ORDERED: CLOPIDOGREL BISULFATE 75 MG TABLET (FP) PO SCH (10:00)
--- NOTE | 2017-03-21 10:20 | PN ---
Progress Note (short form) - Note Progress Note: PULMONARY/CCM Pt seen and examined in the ICU. s/p Left femoral/popliteal thrombectomy/ popliteal anterior tibial bypass. Reports incisional pain. No shortness of breath or chest pain. Last Vital Signs Temp Pulse Resp BP Pulse Ox 98.4 F 104 H 16 148/76 98 03/21/17 06:00 03/21/17 08:00 03/21/17 08:00 03/21/17 08:00 03/21/17 02:00 Intake & Output 03/18/17 03/19/17 03/20/17 03/21/17 23:59 23:59 23:59 23:59 Intake Total 2400 700 Output Total 800 700 Balance 1600 0 Weight 63.503 kg Gen: NAD at rest Heart: tachycardic, regular Lung: basilar rales Abd: soft, nontender Ext: left foot warm, no edema, dressings dry CBC, BMP 03/21/17 06:00 03/21/17 06:00 INR, PTT INR 1.12 (0.82-1.09) 03/20/17 09:30 Active Medications Albuterol/Ipratropium (Duoneb -) 1 amp NEB Q6H PRN PRN Reason: SHORTNESS OF BREATH Atorvastatin Calcium (Lipitor -) 20 mg PO HS [facility] Last Admin: 03/21/17 03:28 Dose: Not Given Clopidogrel Bisulfate (Plavix -) 75 mg PO DAILY [facility] Last Admin: 03/21/17 09:24 Dose: 75 mg Hydromorphone HCl (Dilaudid Injection -) 2 mg IVPB Q4H PRN PRN Reason: PAIN LEVEL 6-10 Last Admin: 03/21/17 09:32 Dose: 2 mg Hydromorphone HCl (Dilaudid Injection -) 1 mg IVPB Q3H PRN PRN Reason: PAIN LEVEL 1-5 Hydromorphone HCl (Dilaudid Injection -) 2 mg IVPB Q3H PRN PRN Reason: PAIN LEVEL 6-10 HEPARIN SOD,PORK IN 0.45% NACL (Heparin-1/2ns 25,000 Units/500) 25,000 units in 500 mls @ 22 mls/hr IVPB TITR JULIET; 1,100 UNITS/HR PRN Reason: Protocol Last Admin: 01/14/18 01:30 Dose: 1,100 units/hr, 22 mls/hr Lactated Ringer's (Lactated Ringers Solution) 1,000 ml in 1,000 mls @ 100 mls/ hr IV ASDIR [facility] Last Admin: 03/21/17 03:28 Dose: Not Given Lisinopril (Prinivil) 20 mg PO DAILY [facility] Last Admin: 03/21/17 09:24 Dose: 20 mg Montelukast Sodium (Singulair -) 10 mg PO HS [facility] Last Admin: 03/21/17 03:28 Dose: Not Given Non-Formulary Medication (Bromfenac Sodium [Bromfenac Sodium]) 1.7 ml OS DAILY [facility] Ofloxacin (Ocuflox 0.3% Eye Drops -) 1 drop OS QID [facility] Last Admin: 03/21/17 09:27 Dose: 1 drop Ondansetron HCl (Zofran Injection) 4 mg IVPUSH Q6H PRN PRN Reason: NAUSEA AND/OR VOMITING Oxycodone HCl (Roxicodone -) 5 mg PO Q4H PRN PRN Reason: Pain Level > 4 Stop: 03/21/17 23:32 Pantoprazole Sodium (Protonix -) 40 mg PO DAILY [facility] Last Admin: 03/21/17 09:25 Dose: 40 mg Prednisolone Acetate (Pred Forte 1% -) 1 drop OS QID [facility] Last Admin: 03/21/17 09:27 Dose: 1 drop Tiotropium [place] (Spiriva -) 1 puff IH DAILY [facility] Verapamil HCl (Calan Sr -) 180 mg PO DAILY [facility] Last Admin: 03/21/17 09:31 Dose: 180 mg A/P Occlusion of Left Femoral/Popliteal Arteries s/p Left Femoral/Popliteal Thrombectomy/Popliteal Anterior Tibial Bypass PAD CAD s/p stent COPD HTN Hyperlipidemia Smoker - continue heparin gtt - plavix - pulse/doppler checks - IVF - pain control - incentive spirometry - PO as tolerated - smoking cessation - disposition per surgery
--- NOTE | 2017-03-21 10:27 | PN ---
Progress Note (short form) - Note Progress Note: Pt day #1 s/p pop-tibial bypass. Pt doing well, lower extremities look well, in minimal pain. Continue current care
[2017-03-21] MEDS ORDERED: LACTATED RINGERS SOLUTION 1,000 ML/1,000 ML INFUS.BAG IV SCH (11:22)
--- NOTE | 2017-03-21 11:25 | PN ---
Progress Note (short form) - Note Progress Note: POD 1 VSS C/o calf pain Left foot warm, strong DP Doppler Wounds dry Labs reviewed S/p revascularization left leg with femoral/popliteal thrombectomy and popliteal -distal tibial bypass Doing well On IV Heparin - will start Coumadin tomorrow OOB OK for transfer to floor care Problem List - Problems (1) Arterial occlusion, lower extremity Code(s): I70.209 - UNSP ATHSCL [place] ART[place] EXTREMITIES, UNSP EXTREMITY
[2017-03-21] MEDS: TIOTROPIUM BROMIDE 18 MCG/INH (DEVICE W/ 5 CAPSULES) IH SCH (12:08)
--- NOTE | 2017-03-21 13:03 | OP ---
DATE OF OPERATION: 03/20/2017 SURGEON: Abrahan Morgan MD PROCEDURE: Thrombectomy of left femoral and popliteal artery; angiogram, left lower leg; bypass from distal popliteal to distal anterior tibial artery with non- reverse saphenous vein graft. PREOPERATIVE DIAGNOSIS: Ischemic left leg, thrombosed femoral and popliteal arteries. POSTOPERATIVE DIAGNOSIS: Ischemic left leg, thrombosed femoral and popliteal arteries, severe lower extremity arterial vascular disease. ANESTHESIA: General. ANESTHESIOLOGIST: Nirmal Brothers MD OPERATIVE FINDINGS: The left lower extremity was acutely ischemic. There was fresh thrombus within the popliteal artery, and fresh and old thrombus removed from the proximal femoral and popliteal arteries. Angiography through the distal popliteal artery showed no main vessels in the upper calf. There was reconstitution of the distal peroneal and anterior tibial artery above the ankle. There was runoff to the foot via the small dorsalis pedis artery. OPERATIVE PROCEDURE: Following routine patient identification with side and site verification, general anesthesia was induced. A Bowman catheter was placed. Saphenous vein in the left leg was mapped with duplex imaging and marked on the skin. The leg was then prepped with ChloraPrep from the lower abdominal wall to the foot. Skin incision was made in the upper calf over the saphenous vein and carried into the subcutaneous tissues using cautery for hemostasis. The saphenous vein was identified and was exposed with extension of the incision superiorly to the level of the knee. Side branches of the vein were ligated and divided. The wound was then deepened down through the muscle fascia using cautery. The popliteal space was entered. The below-knee popliteal artery was mobilized and secured proximally and distally with vessel loops. A longitudinal arteriotomy was made, measuring approximately 15 mm. First thrombus within the popliteal artery was removed and a number 3 Eliz catheter was used to remove a small additional amount of thrombus from the distal popliteal artery, with return of arterial backbleeding. The catheter was placed in the vessel, and angiography was then performed using digital technique and dilute contrast, with the above-noted findings. Having seen a patent distal vessel, decision was made to proceed with thrombectomy and bypass if inflow could be restored. The distal arteries were filled with heparin saline solution and were occluded with a small bulldog clamp. The Eliz catheter was then directed superiorly, and with multiple passes, removal of thrombus from the vessel and return of pulsatile arterial flow was established. The vessel was filled with heparin solution and was occluded. The saphenous vein was then exposed more proximally , with extension of the skin incision. All side branches of the vein were ligated and divided. The vein was completely mobilized from its bed. It was wrapped in moist gauze. An incision was then made in the distal lateral calf midway between the tibia and fibula. Subcutaneous tissues were divided. The muscle fascia was incised and the muscle belly to reveal the neurovascular bundle of the anterior tibial artery. The artery was then mobilized and secured with vessel loops. Side branches were ligated and divided. The artery appeared patent with no significant atherosclerotic disease. It was approximately 1.5 to 2 mm in diameter. The length of vein needed was checked and then the vein segment was excised with proximal ligation with Vicryl. The below-knee popliteal artery was then prepared for anastomosis. The vein was brought in the non-reverse fashion. During the procedure, the patient received intravenous heparin. The proximal end of the vein was spatulated and anastomosed to the side of the artery with running suture of 6-0 Prolene. Prior to completion of the suture line, the artery was allowed to back bleed and flush. The suture line was then completed and the artery was released. The vein graft filled to first competent valve. A modified Lopez valvulotome was then inserted through the distal end and complete valvulotomy performed. There was good flow through the vein graft, which was allowed to untwist and was marked with a pen. A tunnel was then created between the tibia and fibula towards the lateral aspect of the upper calf. A small skin incision was made and the tract was then marked with an umbilical tape. The vein was pulled through the tract, with care not to twist it. A 2nd tunnel deep to the fascia between the 2 lateral incisions was created and the vein was passed through this to lie next to the artery. Care was taken not to twist the vein during this procedure. The distal anterior tibial artery was then occluded with vessel loops and opened on exposed surface with a 15-mm arteriotomy. There was back-bleeding distally and the artery was flushed with heparin solution. The graft was beveled and anastomosed to the side of the artery with running suture of 7-0 Prolene. Prior to completion of the suture line, the arteries were allowed to back-bleed and flush and the vein graft was flushed. The suture line was completed. All clamps were removed. There was good flow through the anastomosis with a strong palpable pulse in the distal anterior tibial artery. There was no Doppler available for use in the operating room. The wounds were irrigated and closed with interrupted suture of 3-0 Vicryl on the subcutaneous tissues and skin kami. Sterile dressings were applied and the patient was taken to the recovery room in stable condition. A strong Doppler signal in the anterior tibial artery and dorsalis pedis artery were present in the recovery room. ABRAHAN MORGAN M.D. [id number] MTDD
[2017-03-22] MEDS: HYDROmorphone HCL CARPU-JECT 2 MG/1 ML DISP.SYRIN IVPB PRN ×3 (03:00→17:43)
[2017-03-22 07:20] LABS: BASO % 0.4 % (0-2.0); EOS % 0.9 % (0-4.5); HEMATOCRIT 26.1 % (32.4-45.2); HEMOGLOBIN 8.6 GM/dL (10.7-15.3); LYMPH % 10.9 % (8-40); MCH 36.4 pg (25.7-33.7); MEAN CELL VOLUME 110.5 fl (80-96); MEAN PLT VOLUME 8.2 fl (7.5-11.1); MONO % 10.7 % (3.8-10.2); NEUT % 77.1 % (42.8-82.8); PLATELET COUNT 288 K/MM3 (134-434); RBC 2.36 M/mm3 (3.60-5.2); RDW 17.5 % (11.6-15.6); WHITE BLOOD COUNT 8.6 K/mm3 (4.0-10.0)
[2017-03-22 07:50] LABS: ALBUMIN 2.7 g/dl (3.4-5.0); ANION GAP 9 (8-16); BLOOD UREA NITROGEN 23 mg/dL (7-18); CALCIUM 7.5 mg/dL (8.5-10.1); CHLORIDE 105 mmol/L (98-107); CO2 26 mmol/L (21-32); CREATININE 1.3 mg/dL (0.55-1.02); GLUCOSE,RANDOM 109 mg/dL (74-106); MAGNESIUM 2.1 mg/dL (1.8-2.4); PHOSPHOROUS 4.1 mg/dL (2.5-4.9); POTASSIUM 3.7 mmol/L (3.5-5.1); SGPT/ALT 45 U/L (12-78); SODIUM 140 mmol/L (136-145)
[2017-03-22 07:51] LABS: ALK PHOS 62 U/L (45-117); BILIRUBIN,TOTAL 0.5 mg/dL (0.2-1.0); SGOT/AST 257 U/L (15-37); TOT PROT 5.2 g/dl (6.4-8.2)
[2017-03-22] MEDS ORDERED: PT OWN MED DRAWER 7, Y5N ONE (09:53)
[2017-03-22] MEDS: VERAPAMIL HCL 180 MG E.R. TABLET (FP) PO SCH (09:59)
[2017-03-22] MEDS: LISINOPRIL 20 MG TABLET (FP) PO SCH (10:03)
[2017-03-22] MEDS: PANTOPRAZOLE 40 MG TABLET (FP) PO SCH (10:03)
[2017-03-22] MEDS: TIOTROPIUM BROMIDE 18 MCG/INH (DEVICE W/ 5 CAPSULES) IH SCH (10:04)
[2017-03-22] MEDS: OFLOXACIN 0.3% OPHTHALMIC SOLUTION 5 ML BOTTLE OS SCH ×5 (10:17→22:36)
--- NOTE | 2017-03-22 11:27 | PN ---
Progress Note (short form) - Note Progress Note: POD 1 VSS Left foot warm, strong DP Doppler Wounds dry Labs reviewed - Hgb drop to 8.6 S/p revascularization left leg with femoral/popliteal thrombectomy and popliteal -distal tibial bypass Doing well Anemia due to operative blood loss - no sign of active bleeding. On IV Heparin - start Coumadin tomorrow OOB OK for transfer to floor care Problem List - Problems (1) Arterial occlusion, lower extremity Code(s): I70.209 - UNSP ATHSCL [employer] [place] [employer] [place] ARTERIES OF EXTREMITIES, UNSP EXTREMITY
[2017-03-22] MEDS ORDERED: INSULIN REGULAR HUMAN 100 UNITS/ML *VIAL ONE (12:00)
[2017-03-22] MEDS ORDERED: LIDOCAINE HCL 2% (50ML VIAL) SQ ONE (12:15)
[2017-03-22] MEDS ORDERED: NICOTINE 21 MG/24 HOURS TOPICAL PATCH TD SCH (12:30)
--- NOTE | 2017-03-22 12:34 | PN ---
Physical Exam: SUBJECTIVE: Patient seen and examined The patient is a 66 year old female with a history of HTN, HLD, CAD s/p stenting , PAD, COPD who is admitted to the ICU s/p left femoral/popliteal thrombectomy/ popliteal anterior tibial bypass POD 2. Patient reports continued improvement in her symptoms and does not have any complaints currently. OBJECTIVE: Vital Signs Period Temp Pulse Resp BP Sys/Olguin Pulse Ox Last 24 Hr 98.4 F-98.9 F 71-96 12-22 92-111/50-75 94-95 GENERAL: The patient is awake, alert, and fully oriented, in no acute distress. HEAD: Normal with no signs of trauma. EYES: sclera anicteric, conjunctiva clear. No ptosis. ENT: oropharynx clear without exudates, moist mucous membranes. NECK: Trachea midline, full range of motion, supple. LUNGS: Breath sounds equal, clear to auscultation bilaterally, no wheezes, no crackles, no accessory muscle use. HEART: Regular rate and rhythm, S1, S2 without murmur, rub or gallop. ABDOMEN: Soft, nontender, nondistended, normoactive bowel sounds, no guarding, no rebound, no hepatosplenomegaly, no masses. EXTREMITIES: 2+ pulses, warm, well-perfused, no edema. Post surgical dressings are dry on the left leg. NEUROLOGICAL: Normal speech, gait not observed. PSYCH: Normal mood, normal affect. SKIN: Warm, dry, normal turgor, no rashes or lesions noted Laboratory Results - last 24 hr 03/21/17 03/21/17 03/22/17 06:00 11:24 05:20 WBC RBC Hgb Hct MCV MCH MCHC RDW Plt Count MPV Neutrophils % Lymphocytes % Monocytes % Eosinophils % Basophils % PTT (Actin FS) 71.8 H 73.9 H Sodium 142 Potassium 4.3 Chloride 108 H Carbon Dioxide 24 Anion Gap 10 BUN 13 Creatinine 0.8 Creat Clearance w eGFR > 60 Random Glucose 114 H Calcium 7.0 L Phosphorus 5.1 H Magnesium 1.2 L Total Bilirubin 0.4 D AST 240 H D ALT 42 D Alkaline Phosphatase 65 Creatine Kinase 8782 H Creatine Kinase Index 1.3 CK-MB (CK-2) 114.388 H Total Protein 5.2 L Albumin 2.7 L 03/22/17 03/22/17 03/22/17 05:20 05:20 05:20 WBC 8.6 D RBC 2.36 L Hgb 8.6 L D Hct 26.1 L MCV 110.5 H MCH 36.4 H MCHC 33.0 RDW 17.5 H Plt Count 288 MPV 8.2 Neutrophils % 77.1 Lymphocytes % 10.9 D Monocytes % 10.7 H Eosinophils % 0.9 D Basophils % 0.4 D PTT (Actin FS) Sodium 140 Potassium 3.7 Chloride 105 Carbon Dioxide 26 Anion Gap 9 BUN 23 H Creatinine 1.3 H Creat Clearance w eGFR 40.73 Random Glucose 109 H Calcium 7.5 L Phosphorus 4.1 Magnesium 2.1 D Total Bilirubin 0.5 D AST 257 H ALT 45 Alkaline Phosphatase 62 Creatine Kinase 7674 H Creatine Kinase Index 0.4 CK-MB (CK-2) 35.849 H Total Protein 5.2 L Albumin 2.7 L Active Medications Generic Name Dose Route Start Last Admin Trade Name Freq PRN Reason Stop Dose Admin Albuterol/Ipratropium 1 amp 03/20/17 18:12 Duoneb - NEB Q6H PRN SHORTNESS OF BREATH Atorvastatin Calcium 20 mg 03/20/17 22:00 03/21/17 21:45 Lipitor - PO 20 mg HS JULIET Administration Hydromorphone HCl 2 mg 03/20/17 16:59 03/22/17 10:04 Dilaudid Injection - IVPB 2 mg Q4H PRN Administration PAIN LEVEL 6-10 Hydromorphone HCl 1 mg 03/20/17 23:37 03/21/17 17:25 Dilaudid Injection - IVPB 1 mg Q3H PRN Administration PAIN LEVEL 1-5 Hydromorphone HCl 2 mg 03/20/17 23:37 Dilaudid Injection - IVPB Q3H PRN PAIN LEVEL 6-10 HEPARIN SOD,PORK IN 0.45% NACL 25,000 units in 500 mls @ 22 mls/hr 03/20/17 18 :00 03/22/17 11:38 Heparin-1/2ns 25,000 Units/500 IVPB 1,100 units/hr TITR JULIET 22 mls/hr Protocol Titration 1,100 UNITS/HR Sodium Chloride 1,000 mls @ 100 mls/hr 03/22/17 12:00 Normal Saline - IV ASDIR JULIET Lisinopril 20 mg 03/21/17 10:00 03/22/17 10:03 Prinivil PO 20 mg DAILY JULIET Administration Montelukast Sodium 10 mg 03/20/17 22:00 03/21/17 21:45 Singulair - PO 10 mg HS JULIET Administration Nicotine 21 mg 03/22/17 12:30 Nicoderm Patch - TD DAILY [facility] Non-Formulary Medication 1.7 ml 03/21/17 10:00 Bromfenac Sodium [Bromfenac Sodium] OS DAILY [facility] Ofloxacin 1 drop 03/20/17 18:00 03/22/17 10:17 Ocuflox 0.3% Eye Drops - OS 1 drop QID [facility] Administration Pantoprazole Sodium 40 mg 03/21/17 10:00 03/22/17 10:03 Protonix - PO 40 mg DAILY [facility] Administration Prednisolone Acetate 1 drop 03/20/17 18:00 03/21/17 22:56 Pred Forte 1% - OS 1 drop QID [facility] Administration Tiotropium [place] 1 puff 03/21/17 10:00 03/22/17 10:04 Spiriva - IH 1 puff DAILY [facility] Administration Verapamil HCl 180 mg 03/21/17 10:00 03/22/17 09:59 Calan Sr - PO 180 mg DAILY [facility] Administration Warfarin Sodium 5 mg 03/22/17 18:00 Coumadin - PO DAILY@1800 JULIET ASSESSMENT/PLAN: The patient is a 66 year old female with a history of HTN, HLD, CAD s/p stenting , PAD, COPD who is admitted to the ICU s/p left femoral/popliteal thrombectomy/ popliteal anterior tibial bypass POD 2. NEURO No issues currently. CV #HTN -Continue to monitor vitals. -Continue home medications RESP #COPD -Continue to monitor -No issues currently GI No Issues Currently. -Will continue to monitor. -Continue 40mg Protonix daily. Renal Will continue to monitor creatinine. -IV fluids given current bun/creatinine elevation. MSK -Continue pain management as needed. FEN/GI -PO as tolerated PPX -Continue heprin prophylaxis. -Start nicotine patches. DISPO: Stable for Med/Surg Transfer. Visit type - Emergency Visit Emergency Visit: No - New Patient This patient is new to me today: Yes Date on this admission: 03/22/17 - Critical Care Critical Care patient: No
--- NOTE | 2017-03-22 12:46 | PN ---
Teaching Attending Note Name of Resident: Jose Carlos Del Real ATTENDING PHYSICIAN STATEMENT I saw and evaluated the patient. I reviewed the resident's note and discussed the case with the resident. I agree with the resident's findings and plan as documented. SUBJECTIVE: Pt seen and examined in the ICU. Pain controlled with current regimen. Denies shortness of breath or chest pain. OBJECTIVE: Last Vital Signs Temp Pulse Resp BP Pulse Ox 98.9 F 77 18 101/50 95 03/22/17 06:00 03/22/17 06:00 03/22/17 06:00 03/22/17 06:00 03/21/17 21:00 Intake & Output 03/19/17 03/20/17 03/21/17 03/22/17 23:59 23:59 23:59 23:59 Intake Total 2400 2070 150 Output Total 800 900 300 Balance 1600 1170 -150 Weight 63.503 kg Gen: NAD at rest Heart: RRR Lung: distant breath sounds, no wheezes Abd: soft, nontender Ext: incisions clean, foot warm CBC, BMP 03/22/17 05:20 03/22/17 05:20 Active Medications Albuterol/Ipratropium (Duoneb -) 1 amp NEB Q6H PRN PRN Reason: SHORTNESS OF BREATH Atorvastatin Calcium (Lipitor -) 20 mg PO HS JULIET Last Admin: 03/21/17 21:45 Dose: 20 mg Hydromorphone HCl (Dilaudid Injection -) 2 mg IVPB Q4H PRN PRN Reason: PAIN LEVEL 6-10 Last Admin: 03/22/17 10:04 Dose: 2 mg Hydromorphone HCl (Dilaudid Injection -) 1 mg IVPB Q3H PRN PRN Reason: PAIN LEVEL 1-5 Last Admin: 03/21/17 17:25 Dose: 1 mg Hydromorphone HCl (Dilaudid Injection -) 2 mg IVPB Q3H PRN PRN Reason: PAIN LEVEL 6-10 HEPARIN SOD,PORK IN 0.45% NACL (Heparin-1/2ns 25,000 Units/500) 25,000 units in 500 mls @ 22 mls/hr IVPB TITR JULIET; 1,100 UNITS/HR PRN Reason: Protocol Last Titration: 03/22/17 11:38 Dose: 1,100 units/hr, 22 mls/hr Sodium Chloride (Normal Saline -) 1,000 mls @ 100 mls/hr IV ASDIR [facility] Lisinopril (Prinivil) 20 mg PO DAILY [facility] Last Admin: 03/22/17 10:03 Dose: 20 mg Montelukast Sodium (Singulair -) 10 mg PO HS [facility] Last Admin: 03/21/17 21:45 Dose: 10 mg Nicotine (Nicoderm Patch -) 21 mg TD DAILY [facility] Non-Formulary Medication (Bromfenac Sodium [Bromfenac Sodium]) 1.7 ml OS DAILY [facility] Ofloxacin (Ocuflox 0.3% Eye Drops -) 1 drop OS QID [facility] Last Admin: 03/22/17 10:17 Dose: 1 drop Pantoprazole Sodium (Protonix -) 40 mg PO DAILY [facility] Last Admin: 03/22/17 10:03 Dose: 40 mg Prednisolone Acetate (Pred Forte 1% -) 1 drop OS QID [facility] Last Admin: 03/21/17 22:56 Dose: 1 drop Tiotropium [place] (Spiriva -) 1 puff IH DAILY [facility] Last Admin: 03/22/17 10:04 Dose: 1 puff Verapamil HCl (Calan Sr -) 180 mg PO DAILY [facility] Last Admin: 03/22/17 09:59 Dose: 180 mg Warfarin Sodium (Coumadin -) 5 mg PO DAILY@1800 [facility] ASSESSMENT AND PLAN: Occlusion of Left Femoral/Popliteal Arteries s/p Left Femoral/Popliteal Thrombectomy/Popliteal Anterior Tibial Bypass PAD CAD s/p stent Acute Kidney Injury COPD HTN Hyperlipidemia Smoker - continue heparin gtt, transition to coumadin - plavix - pulse/doppler checks - pain control - incentive spirometry - IVF - monitor urine output, creatinine - PO as tolerated - smoking cessation - can monitor on floor
[2017-03-22] MEDS: SODIUM CHLORIDE 1,000 ML IV SCH ×2 (13:46→22:23)
[2017-03-22] MEDS: prednisoLONE ACETATE 1% OPHTH SUSP 5 ML BOTTLE OS SCH ×4 (15:25→22:39)
--- NOTE | 2017-03-22 16:45 | PN ---
Physical Exam: SUBJECTIVE: Patient seen and examined at bedside in ICU. Pain is 7/10. OBJECTIVE: Vital Signs Period Temp Pulse Resp BP Sys/Olguin Pulse Ox Last 24 Hr 98.4 F-98.9 F 71-85 12-18 101-111/50-68 94-95 GENERAL: The patient is awake, alert, and fully oriented, in no acute distress. LUNGS: Diminished breath sounds at bases HEART: Regular rate and rhythm, S1, S2 ABDOMEN: Soft, nontender, nondistended, normoactive bowel sounds UPPER EXTREMITIES: 2+ pulses, warm, well-perfused. No cyanosis. No clubbing. No peripheral edema. RIGHT LOWER EXTREMITY: pulses not palpable nor dopplerable; foot and leg are warm, trace edema LEFT LOWER EXTREMITY: foot and leg are warm, pink, palpable DP pulse; two vertical surgical staple incisions, edges well approximated, no erythema, no exudate NEUROLOGICAL: Cranial nerves II-XII intact. Laboratory Results - last 24 hr 03/22/17 03/22/17 03/22/17 05:20 05:20 05:20 WBC 8.6 D RBC 2.36 L Hgb 8.6 L D Hct 26.1 L MCV 110.5 H MCH 36.4 H MCHC 33.0 RDW 17.5 H Plt Count 288 MPV 8.2 Neutrophils % 77.1 Lymphocytes % 10.9 D Monocytes % 10.7 H Eosinophils % 0.9 D Basophils % 0.4 D PTT (Actin FS) 73.9 H Sodium 140 Potassium 3.7 Chloride 105 Carbon Dioxide 26 Anion Gap 9 BUN 23 H Creatinine 1.3 H Creat Clearance w eGFR 40.73 Random Glucose 109 H Calcium 7.5 L Phosphorus 4.1 Magnesium 2.1 D Total Bilirubin 0.5 D AST 257 H ALT 45 Alkaline Phosphatase 62 Creatine Kinase Creatine Kinase Index CK-MB (CK-2) Total Protein 5.2 L Albumin 2.7 L 03/22/17 05:20 WBC RBC Hgb Hct MCV MCH MCHC RDW Plt Count MPV Neutrophils % Lymphocytes % Monocytes % Eosinophils % Basophils % PTT (Actin FS) Sodium Potassium Chloride Carbon Dioxide Anion Gap BUN Creatinine Creat Clearance w eGFR Random Glucose Calcium Phosphorus Magnesium Total Bilirubin AST ALT Alkaline Phosphatase Creatine Kinase 7674 H Creatine Kinase Index 0.4 CK-MB (CK-2) 35.849 H Total Protein Albumin Active Medications Generic Name Dose Route Start Last Admin Trade Name Freq PRN Reason Stop Dose Admin Albuterol/Ipratropium 1 amp 03/20/17 18:12 Duoneb - NEB Q6H PRN SHORTNESS OF BREATH Atorvastatin Calcium 20 mg 03/20/17 22:00 03/21/17 21:45 Lipitor - PO 20 mg HS JULIET Administration Hydromorphone HCl 2 mg 03/20/17 16:59 03/22/17 10:04 Dilaudid Injection - IVPB 2 mg Q4H PRN Administration PAIN LEVEL 6-10 Hydromorphone HCl 1 mg 03/20/17 23:37 03/21/17 17:25 Dilaudid Injection - IVPB 1 mg Q3H PRN Administration PAIN LEVEL 1-5 Hydromorphone HCl 2 mg 03/20/17 23:37 Dilaudid Injection - IVPB Q3H PRN PAIN LEVEL 6-10 HEPARIN SOD,PORK IN 0.45% NACL 25,000 units in 500 mls @ 22 mls/hr 03/20/17 18 :00 03/22/17 11:38 Heparin-1/2ns 25,000 Units/500 IVPB 1,100 units/hr TITR JULIET 22 mls/hr Protocol Titration 1,100 UNITS/HR Sodium Chloride 1,000 mls @ 100 mls/hr 03/22/17 12:00 03/22/17 13:46 Normal Saline - IV 100 mls/hr ASDIR JULIET Administration Lisinopril 20 mg 03/21/17 10:00 03/22/17 10:03 Prinivil PO 20 mg DAILY JULIET Administration Montelukast Sodium 10 mg 03/20/17 22:00 03/21/17 21:45 Singulair - PO 10 mg HS JULIET Administration Nicotine 21 mg 03/22/17 12:30 03/22/17 15:30 Nicoderm Patch - TD 21 mg DAILY JULIET Administration Non-Formulary Medication 1.7 ml 03/21/17 10:00 Bromfenac Sodium [Bromfenac Sodium] OS DAILY [facility] Ofloxacin 1 drop 03/20/17 18:00 03/22/17 15:34 Ocuflox 0.3% Eye Drops - OS Not Given QID JULIET Pantoprazole Sodium 40 mg 03/21/17 10:00 03/22/17 10:03 Protonix - PO 40 mg DAILY JULIET Administration Prednisolone Acetate 1 drop 03/20/17 18:00 03/22/17 15:28 Pred Forte 1% - OS 1 drop QID JULIET Administration Tiotropium [place] 1 puff 03/21/17 10:00 03/22/17 10:04 Spiriva - IH 1 puff DAILY JULIET Administration Verapamil HCl 180 mg 03/21/17 10:00 03/22/17 09:59 Calan Sr - PO 180 mg DAILY JULITE Administration Warfarin Sodium 5 mg 03/22/17 18:00 Coumadin - PO DAILY@1800 [facility] ASSESSMENT/PLAN 66 year-old female with a PMH significant for HTN, HLD, CAD s/p stent, COPD, and peripheral arterial disease. Three weeks ago underwent revascularization of the left femoral artery with stent and angioplasty. Admitted for thrombosed femoral and popliteal arteries. Now s/p thrombectomy and bypass. 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 --s/p 03/20/17 left femoral and popliteal thrombectomy, angiogram, popliteal anterior tibial bypass with non-reversed saphenous vein (Eddie) --continue heparin drip, PTT goal 60-80; start bridge to coumadin tomorrow --continue ASA, Plavix per Eddie --serial dopplers and pulse checks Intramuscular hematoma left rectus abdominus Blood loss anemia --Hgb drop from time of admission (11.5) to today (8.6); surgeon attributes to operative loss; note EBL in operative report @ 100cc --concern for 3.7 x 8.0cm rectus sheath hematoma seen pre-operatively; repeat CT today reassurring, hematoma same size, perhaps slightly smaller --will monitor h/h closely CAD s/p stent --02/23 Echo: LV normal; RV normal; LAE; mild MR; mild TR --resume ASA, Plavix Pulmonary congestion --CT on admission showed some congestion; Lasix IV 40mg x 1 given pre- operatively --CT today shows significant, L>R, lower lobes atelectatic changes v. infiltrate, worse than prior exam --no fever, no leukocytosis, no antibiotics for now --instructed patient on use of incentive spirometry Common bile duct dilitation --CBD dilated 1.1cm, not dilated on pre-op CT --will trend LFT and bilis --may need US Renal cyst --3.0cm right lower renal pole cysts measuring slightly higher than simple fluid density --US renal suggested Distended urinary bladder --may be IV contrast material from several days ago v. blood --recheck UA Hypertension --continue lisinopril, verapamil Hyperlipidemia --continue Lipitor COPD --stable --continue Spiriva, singulair --duonebs PRN Hypomagnesemia, resolved FEN Fluids: PO intake adequate Electrolytes: replete as indicated Nutrition: low sodium DVT prophylaxis: on heparin drip; start bridge to coumadin tomorrow Physical therapy Dispo: continues to require inpatient care. Full code. Visit type - Emergency Visit Emergency Visit: Yes ED Registration Date: 03/20/17 Care time: The patient presented to the Emergency Department on the above date and was hospitalized for further evaluation of their emergent condition. - New Patient This patient is new to me today: No - Critical Care Critical Care patient: Yes Total Critical Care Time (in minutes): 45 Critical Care Statement: The care of this patient involved high complexity decision making to prevent further life threatening deterioration of the patient 's condition and/or to evaluate & treat vital organ system(s) failure or risk of failure.
[2017-03-22] MEDS ORDERED: WARFARIN NA 5 MG TABLET (UD) PO SCH (18:00)
[2017-03-22] MEDS: HEPARIN SOD,PORK IN 0.45% NACL 25,000 UNITS/500 ML INFUS.BAG IVPB SCH ×2 (18:14→22:35)
[2017-03-22] MEDS ORDERED: LIDOCAINE HCL 1%, 10 MG/ML (20ML VIAL) ONE (18:30)
[2017-03-22] MEDS ORDERED: ALBUTEROL SO4 2.5/IPRATROPIUM 0.5 INH SOL 3 ML VIAL.NEB. NEB PRN (19:02)
[2017-03-22] MEDS ORDERED: HYDROmorphone HCL CARPU-JECT 2 MG/1 ML DISP.SYRIN IVPB PRN ×2 (19:02)
[2017-03-22] MEDS ORDERED: HYDROmorphone HCL CARPU-JECT 1 MG/1 ML DISP.SYRIN IVPB PRN (19:02)
--- NOTE | 2017-03-22 21:59 | PROC ---
Procedure Note Procedure: A staple from upper thigh noted to be coming out on rounds this am, it was removed. Tonight the area was cleaned with betadine soltion and injected with 2 % lidocaine, 1.5 cc and a 3.0 nylon suture was used to place two stiches to close the skin edges. The upper incision was then covered with 4x4 gauze and tape.
[2017-03-22] MEDS: MONTELUKAST NA 10 MG TABLET PO SCH (22:44)
[2017-03-22] MEDS: ATORVASTATIN CA 20 MG TABLET (FP) PO SCH (22:44)
[2017-03-22] MEDS ORDERED: INSULIN DETEMIR 100 UNITS/ML MDV SQ ONE (23:28)
[2017-03-23 06:28] LABS: BASO % 0.5 % (0-2.0); HEMATOCRIT 26.9 % (32.4-45.2); HEMOGLOBIN 8.6 GM/dL (10.7-15.3); LYMPH % 16.7 % (8-40); MCH 35.6 pg (25.7-33.7); MCHC 32.2 g/dl (32.0-36.0); MEAN CELL VOLUME 110.8 fl (80-96); MEAN PLT VOLUME 8.3 fl (7.5-11.1); NEUT % 70.8 % (42.8-82.8); PLATELET COUNT 306 K/MM3 (134-434); RBC 2.42 M/mm3 (3.60-5.2); RDW 16.8 % (11.6-15.6); WHITE BLOOD COUNT 6.9 K/mm3 (4.0-10.0)
[2017-03-23 06:44] LABS: INR 1.41 (0.82-1.09); PROTHROMBIN TIME (PATIENT) 15.9 SEC (9.98-11.88)
[2017-03-23 06:55] LABS: ALBUMIN 2.4 g/dl (3.4-5.0); BILIRUBIN,DIRECT < 0.2 mg/dL (0.0-0.2); BILIRUBIN,TOTAL 0.6 mg/dL (0.2-1.0); SGOT/AST 210 U/L (15-37); SGPT/ALT 42 U/L (12-78); TOT PROT 4.9 g/dl (6.4-8.2)
[2017-03-23 06:56] LABS: ALK PHOS 63 U/L (45-117)
[2017-03-23 07:01] LABS: ALBUMIN 2.4 g/dl (3.4-5.0); ANION GAP 6 (8-16); BLOOD UREA NITROGEN 15 mg/dL (7-18); CHLORIDE 106 mmol/L (98-107); CO2 29 mmol/L (21-32); MAGNESIUM 1.7 mg/dL (1.8-2.4); POTASSIUM 3.8 mmol/L (3.5-5.1); SODIUM 141 mmol/L (136-145)
[2017-03-23 07:19] LABS: ALK PHOS 62 U/L (45-117); BILIRUBIN,TOTAL 0.5 mg/dL (0.2-1.0); CREATININE 0.7 mg/dL (0.55-1.02); GLUCOSE,RANDOM 95 mg/dL (74-106); PHOSPHOROUS 2.6 mg/dL (2.5-4.9); SGOT/AST 218 U/L (15-37); SGPT/ALT 44 U/L (12-78); TOT PROT 5.1 g/dl (6.4-8.2)
[2017-03-23] MEDS ORDERED: MAGNESIUM SULF 50% (8.12 MEQ/2 ML-1 GM VIAL) IVPB ONE (07:38)
[2017-03-23] MEDS ORDERED: MAGNESIUM OXIDE 400 MG TABLET (FP) PO ONE (08:30)
--- NOTE | 2017-03-23 08:30 | PN ---
Progress Note (short form) - Note Progress Note: Patient upset and anxious VSS Wounds cean and dry. Left foot warm Hgb stable Stable caourse. adjust coumadin OOB Ambulate Problem List - Problems (1) Arterial occlusion, lower extremity Code(s): I70.209 - UNSP ATHSCL [place] ARTERIES OF EXTREMITIES, UNSP EXTREMITY
--- NOTE | 2017-03-23 08:52 | PN ---
Physical Exam: SUBJECTIVE: Patient seen and examined The patient is a 66 year old female with a history of HTN, HLD, CAD s/p stenting , PAD, COPD who is admitted to the ICU s/p left femoral/popliteal thrombectomy/ popliteal anterior tibial bypass POD 3. Patient is upset and anxious on exam and wanting to know when she will be moved out of the ICU. She is complaining of worsening SOB similar to her prior COPD exacerbations. Otherwise no acute events overnight. OBJECTIVE: Vital Signs Period Temp Pulse Resp BP Sys/Olguin Pulse Ox Last 24 Hr 98.6 F-99.6 F 73-92 16-22 113-161/58-80 94-98 GENERAL: The patient is awake, alert, and fully oriented, and anxious. HEAD: Normal with no signs of trauma. EYES: sclera anicteric, conjunctiva clear. No ptosis. ENT: nares patent, oropharynx clear without exudates, moist mucous membranes. NECK: Trachea midline, full range of motion, supple. LUNGS: Breath sounds equal, clear to auscultation bilaterally, Bilateral expiratory wheezing noted on exam, Bibasilar crackles noted on exam, no accessory muscle use. HEART: Regular rate and rhythm, S1, S2 without murmur, rub or gallop. ABDOMEN: Soft, nontender, nondistended, normoactive bowel sounds, no guarding, no rebound, no hepatosplenomegaly, no masses. EXTREMITIES: 2+ pulses, warm, well-perfused, no edema bilaterally. Clean and dry healing surgical wounds to the left lower extremity. NEUROLOGICAL: Normal speech, gait not observed. PSYCH: Normal mood, normal affect. SKIN: Warm, dry, normal turgor, no rashes or lesions noted Laboratory Results - last 24 hr 03/23/17 03/23/17 03/23/17 05:00 05:00 05:00 WBC 6.9 RBC 2.42 L Hgb 8.6 L Hct 26.9 L MCV 110.8 H MCH 35.6 H MCHC 32.2 RDW 16.8 H Plt Count 306 MPV 8.3 Neutrophils % 70.8 Lymphocytes % 16.7 D Monocytes % 11.0 H Eosinophils % 1.0 Basophils % 0.5 PT with INR 15.90 H INR 1.41 H PTT (Actin FS) 78.6 H Sodium Potassium Chloride Carbon Dioxide Anion Gap BUN Creatinine Creat Clearance w eGFR Random Glucose Calcium Phosphorus Magnesium Total Bilirubin Direct Bilirubin AST ALT Alkaline Phosphatase Creatine Kinase Total Protein Albumin 03/23/17 03/23/17 05:00 05:00 WBC RBC Hgb Hct MCV MCH MCHC RDW Plt Count MPV Neutrophils % Lymphocytes % Monocytes % Eosinophils % Basophils % PT with INR INR PTT (Actin FS) Sodium 141 Potassium 3.8 Chloride 106 Carbon Dioxide 29 Anion Gap 6 L BUN 15 Creatinine 0.7 Creat Clearance w eGFR > 60 Random Glucose 95 Calcium 8.0 L Phosphorus 2.6 D Magnesium 1.7 L Total Bilirubin 0.5 0.6 Direct Bilirubin < 0.2 AST 218 H 210 H ALT 44 42 Alkaline Phosphatase 62 63 Creatine Kinase 4751 H Total Protein 5.1 L 4.9 L Albumin 2.4 L 2.4 L Active Medications Generic Name Dose Route Start Last Admin Trade Name Freq PRN Reason Stop Dose Admin Albuterol/Ipratropium 1 amp 03/22/17 19:02 Duoneb - NEB Q6H PRN SHORTNESS OF BREATH Alprazolam 0.25 mg 03/23/17 08:32 Xanax - PO Q8H PRN ANXIETY Atorvastatin Calcium 20 mg 03/22/17 22:00 03/22/17 22:44 Lipitor - PO 20 mg HS JULIET Administration Hydromorphone HCl 1 mg 03/22/17 19:02 Dilaudid Injection - IVPB Q3H PRN PAIN LEVEL 1-5 Hydromorphone HCl 2 mg 03/22/17 19:02 03/23/17 00:34 Dilaudid Injection - IVPB 2 mg Q3H PRN Administration PAIN LEVEL 6-10 Sodium Chloride 1,000 mls @ 100 mls/hr 03/22/17 12:00 03/22/17 22:23 Normal Saline - IV 100 mls/hr ASDIR JULIET Administration HEPARIN SOD,PORK IN 0.45% NACL 25,000 units in 500 mls @ 22 mls/hr 03/22/17 19 :02 03/22/17 22:35 Heparin-1/2ns 25,000 Units/500 IVPB 1,100 units/hr TITR JULIET 22 mls/hr Protocol Administration 1,100 UNITS/HR Magnesium Sulfate/Dextrose 1 gm in 100 mls @ 100 mls/hr 03/23/17 08:45 Magnesium 1gm/D5w - IVPB 03/23/17 10:44 Q1H [facility] Lisinopril 20 mg 03/23/17 10:00 Prinivil PO DAILY [facility] Montelukast Sodium 10 mg 03/22/17 22:00 03/22/17 22:44 Singulair - PO 10 mg HS [facility] Administration Nicotine 21 mg 03/23/17 10:00 Nicoderm Patch - TD DAILY [facility] Non-Formulary Medication 1.7 ml 03/23/17 10:00 Bromfenac Sodium [Bromfenac Sodium] OS DAILY [facility] Ofloxacin 1 drop 03/22/17 22:00 03/22/17 22:36 Ocuflox 0.3% Eye Drops - OS Not Given QID [facility] Pantoprazole Sodium 40 mg 03/23/17 10:00 Protonix - PO DAILY [facility] Prednisolone Acetate 1 drop 03/22/17 22:00 03/22/17 22:39 Pred Forte 1% - OS Not Given QID [facility] Tiotropium [place] 1 puff 03/23/17 10:00 Spiriva - IH DAILY [facility] Verapamil HCl 180 mg 03/23/17 10:00 Calan Sr - PO DAILY [facility] Warfarin Sodium 5 mg 03/23/17 18:00 Coumadin - PO DAILY@1800 [facility] ASSESSMENT/PLAN: The patient is a 66 year old female with a history of HTN, HLD, CAD s/p stenting , PAD, COPD who is admitted to the ICU s/p left femoral/popliteal thrombectomy/ popliteal anterior tibial bypass POD 3. NEURO #Nicotine Dependence -Continue nicotine patch as needed. CV #HTN -Continue to monitor vitals. -Continue home medications RESP #COPD -Currently worsening symptoms with desaturation to 85%. The patient was placed on a non-rebreather and given duonebs. Her symptoms are likely due to a possible COPD exacerbation. She reported improvement in her symptoms after management. -Obtain a chest plain film. If it demonstrates fluid overload, we will treat with 20mg of iv lasix. -Start solu-medrol 40mg q8h -Will d/c spiriva and place patient on Duonebs QID -Continue to monitor GI Patient reports that she has not been eating well. -Will place patient on fluid diet. -Will continue to monitor. -Continue 40mg Protonix daily. Renal BUN/Creatinine improved after iv fluids yesterday. -Will continue to monitor. MSK -Extremities continued to be well perfused without any signs of complication. -Continue pain management as needed. -Will obtain PT for the patient. FEN/GI -PO as tolerated PPX -Continue heprin prophylaxis. DISPO: Stable for Med/Surg Transfer. Visit type - Emergency Visit Emergency Visit: No - New Patient This patient is new to me today: No - Critical Care Critical Care patient: No
[2017-03-23] MEDS: MAGNESIUM 1GM/D5W - 1 GM/100 ML IVPB IVPB SCH ×2 (09:00→11:00)
[2017-03-23] MEDS: ALPRAZolam 0.25 MG TABLET PO PRN (09:09)
[2017-03-23] MEDS: OFLOXACIN 0.3% OPHTHALMIC SOLUTION 5 ML BOTTLE OS SCH ×4 (10:00→22:12)
[2017-03-23] MEDS ORDERED: BROMFENAC SODIUM OS SCH (10:00)
[2017-03-23] MEDS ORDERED: TIOTROPIUM BROMIDE 18 MCG/INH (DEVICE W/ 5 CAPSULES) IH SCH (10:00)
[2017-03-23] MEDS: prednisoLONE ACETATE 1% OPHTH SUSP 5 ML BOTTLE OS SCH ×4 (11:00→22:12)
[2017-03-23] MEDS ORDERED: FUROSEMIDE 40 MG/4 ML INJECTABLE VIAL IVPUSH ONE (11:43)
--- NOTE | 2017-03-23 11:49 | PN ---
Teaching Attending Note Name of Resident: Jose Carlos Del Real ATTENDING PHYSICIAN STATEMENT I saw and evaluated the patient. I reviewed the resident's note and discussed the case with the resident. I agree with the resident's findings and plan as documented. SUBJECTIVE: Pt seen and examined in the ICU. Episode of desaturation this AM, improved with nebulizers. CXR just done showing increasing congestion. OBJECTIVE: Last Vital Signs Temp Pulse Resp BP Pulse Ox 98.6 F 117 H 20 179/80 96 03/23/17 06:00 03/23/17 10:00 03/23/17 10:00 03/23/17 10:00 03/23/17 09:24 Intake & Output 03/20/17 03/21/17 03/22/17 03/23/17 23:59 23:59 23:59 23:59 Intake Total 2400 2070 2314 791 Output Total 800 900 750 Balance 1600 1170 1564 791 Weight 63.503 kg 72.62 kg Gen: anxious, tachypneic Heart: tachycardic, regular Lung: bilateral rales, wheezes Abd: soft, nontender Ext: no edema, incisions clean CBC, BMP 03/23/17 05:00 03/23/17 05:00 INR, PTT INR 1.41 (0.82-1.09) H 03/23/17 05:00 Active Medications Albuterol/Ipratropium (Duoneb -) 1 amp NEB RQID JULIET Alprazolam (Xanax -) 0.25 mg PO Q8H PRN PRN Reason: ANXIETY Last Admin: 03/23/17 09:09 Dose: 0.25 mg Atorvastatin Calcium (Lipitor -) 20 mg PO HS JULIET Last Admin: 03/22/17 22:44 Dose: 20 mg Furosemide (Lasix Injection -) 40 mg IVPUSH ONCE ONE Stop: 03/23/17 11:44 Hydromorphone HCl (Dilaudid Injection -) 1 mg IVPB Q3H PRN PRN Reason: PAIN LEVEL 1-5 Hydromorphone HCl (Dilaudid Injection -) 2 mg IVPB Q3H PRN PRN Reason: PAIN LEVEL 6-10 Last Admin: 03/23/17 00:34 Dose: 2 mg Sodium Chloride (Normal Saline -) 1,000 mls @ 100 mls/hr IV ASDIR JULIET Last Admin: 03/22/17 22:23 Dose: 100 mls/hr HEPARIN SOD,PORK IN 0.45% NACL (Heparin-1/2ns 25,000 Units/500) 25,000 units in 500 mls @ 22 mls/hr IVPB TITR JULIET; 1,100 UNITS/HR PRN Reason: Protocol Last Admin: 03/22/17 22:35 Dose: 1,100 units/hr, 22 mls/hr Lisinopril (Prinivil) 20 mg PO DAILY [facility] Methylprednisolone Sodium Succinate (Solu-Medrol -) 40 mg IVPUSH Q8H-IV JULIET Montelukast Sodium (Singulair -) 10 mg PO HS [facility] Last Admin: 03/22/17 22:44 Dose: 10 mg Nicotine (Nicoderm Patch -) 21 mg TD DAILY [facility] Non-Formulary Medication (Bromfenac Sodium [Bromfenac Sodium]) 1.7 ml OS DAILY [facility] Ofloxacin (Ocuflox 0.3% Eye Drops -) 1 drop OS QID [facility] Last Admin: 03/22/17 22:36 Dose: Not Given Pantoprazole Sodium (Protonix -) 40 mg PO DAILY [facility] Prednisolone Acetate (Pred Forte 1% -) 1 drop OS QID [facility] Last Admin: 03/22/17 22:39 Dose: Not Given Verapamil HCl (Calan Sr -) 180 mg PO DAILY [facility] Warfarin Sodium (Coumadin -) 5 mg PO DAILY@1800 [facility] ASSESSMENT AND PLAN: Occlusion of Left Femoral/Popliteal Arteries s/p Left Femoral/Popliteal Thrombectomy/Popliteal Anterior Tibial Bypass PAD CAD s/p stent Acute Kidney Injury COPD HTN Hyperlipidemia Smoker - give dose of lasix - shot course of steroids - inhaled bronchodilators - O2 to keep SpO2 >90% - continue heparin gtt, transition to coumadin - plavix - pulse/doppler checks - pain control - incentive spirometry - d/c IVF - monitor urine output, creatinine - PO as tolerated - smoking cessation - can monitor on floor
[2017-03-23] MEDS: ALBUTEROL SO4 2.5/IPRATROPIUM 0.5 INH SOL 3 ML VIAL.NEB. NEB SCH ×3 (11:50→20:00)
[2017-03-23] MEDS ORDERED: PT OWN MED DRAWER 7, Y5N ONE (12:19)
[2017-03-23] MEDS: methylPREDNISolone NA SUCC 40 MG/1 ML VIAL IVPUSH SCH ×2 (12:20→17:50)
[2017-03-23] MEDS: LISINOPRIL 20 MG TABLET (FP) PO SCH (12:20)
[2017-03-23] MEDS: NICOTINE 21 MG/24 HOURS TOPICAL PATCH TD SCH (12:21)
[2017-03-23] MEDS: PANTOPRAZOLE 40 MG TABLET (FP) PO SCH (12:22)
[2017-03-23] MEDS: VERAPAMIL HCL 180 MG E.R. TABLET (FP) PO SCH (12:22)
[2017-03-23] MEDS: SODIUM CHLORIDE 1,000 ML IV SCH (12:22)
[2017-03-23 15:14] LABS: URINE APPEARANCE CLEAR; URINE BILIRUBIN NEGATIVE (NEGATIVE); URINE BLOOD 1+ (NEGATIVE); URINE COLOR LTYELLOW; URINE GLUCOSE (UA) NEGATIVE (NEGATIVE); URINE KETONE NEGATIVE (NEGATIVE); URINE LEUK ESTERASE NEGATIVE (NEGATIVE); URINE NITRITE NEGATIVE (NEGATIVE); URINE PROTEIN NEGATIVE (NEGATIVE); URINE UROBILINOGEN NEGATIVE mg/dL (0.2-1.0)
[2017-03-23 15:26] LABS: EPI CELLS RARE /HPF (FEW); URINE BACTERIA RARE /hpf (NONE SEEN); URINE HYALINE CAST 1 /lpf
--- NOTE | 2017-03-23 16:24 | PATH ---
Surgical Pathology Report Patient Name: CANDY FOSTER Med. Rec. #: [id number] /Age/Gender: 1950 (Age: 66) / F Account: [id number] Location: ICU [facility] Taken: 03/20/2017 Received: 03/22/2017 Reported: 03/23/2017 Physicians: Abrahan Morgan M.D. Specimen(s) Received CLOT LEFT FEMORAL ARTERY Clinical History Arterial occlusion lower extremity Final Diagnosis CLOT, LEFT FEMORAL ARTERY, THROMBECTOMY: ORGANIZING BLOOD CLOT. Electronically Signed Sharona Wynn M.D. Gross Description Received in formalin labeled "clot left femoral artery," is a 5.0 x 3.2 x 0.4 cm aggregate of hughes-brown, irregular to cylindrical portions of plaque and blood clot. Washing Machine Mechanic sections are submitted in one cassette. /03/22/2017 saudi03/22/2017
[2017-03-23] MEDS ORDERED: WARFARIN NA 5 MG TABLET (UD) PO SCH (18:00)
[2017-03-23] MEDS: MONTELUKAST NA 10 MG TABLET PO SCH (22:11)
[2017-03-23] MEDS: ATORVASTATIN CA 20 MG TABLET (FP) PO SCH (22:11)
[2017-03-23] MEDS: HEPARIN SOD,PORK IN 0.45% NACL 25,000 UNITS/500 ML INFUS.BAG IVPB SCH (22:12)
--- NOTE | 2017-03-23 22:28 | PN ---
Physical Exam: SUBJECTIVE: Patient seen and examined. OBJECTIVE: Vital Signs Period Temp Pulse Resp BP Sys/Olguin Pulse Ox Last 24 Hr 97.8 F-99.6 F 71-129 13-25 121-179/62-80 96-96 GENERAL: The patient is awake, alert, and fully oriented, in no acute distress. LUNGS: Diminished breath sounds at bases HEART: Regular rate and rhythm, S1, S2 ABDOMEN: Soft, nontender, nondistended, normoactive bowel sounds UPPER EXTREMITIES: 2+ pulses, warm, well-perfused. No cyanosis. No clubbing. No peripheral edema. RIGHT LOWER EXTREMITY: pulses not palpable nor dopplerable; foot and leg are warm, trace edema LEFT LOWER EXTREMITY: foot and leg are warm, pink, palpable DP pulse; two vertical surgical staple incisions, edges well approximated, no erythema, no exudate NEUROLOGICAL: Cranial nerves II-XII intact. Laboratory Results - last 24 hr 03/23/17 03/23/17 03/23/17 05:00 05:00 05:00 WBC 6.9 RBC 2.42 L Hgb 8.6 L Hct 26.9 L MCV 110.8 H MCH 35.6 H MCHC 32.2 RDW 16.8 H Plt Count 306 MPV 8.3 Neutrophils % 70.8 Lymphocytes % 16.7 D Monocytes % 11.0 H Eosinophils % 1.0 Basophils % 0.5 PT with INR 15.90 H INR 1.41 H PTT (Actin FS) 78.6 H Sodium Potassium Chloride Carbon Dioxide Anion Gap BUN Creatinine Creat Clearance w eGFR Random Glucose Calcium Phosphorus Magnesium Total Bilirubin Direct Bilirubin AST ALT Alkaline Phosphatase Creatine Kinase Creatine Kinase Index CK-MB (CK-2) Total Protein Albumin Urine Color Urine Appearance Urine pH Ur Specific [place] Urine Protein Urine Glucose (UA) Urine Ketones Urine Blood Urine Nitrite Urine Bilirubin Urine Urobilinogen Ur Leukocyte Esterase Urine WBC (Auto) Urine RBC (Auto) Ur Epithelial Cells Urine Bacteria Hyaline Casts 03/23/17 03/23/17 03/23/17 05:00 05:00 12:50 WBC RBC Hgb Hct MCV MCH MCHC RDW Plt Count MPV Neutrophils % Lymphocytes % Monocytes % Eosinophils % Basophils % PT with INR INR PTT (Actin FS) Sodium 141 Potassium 3.8 Chloride 106 Carbon Dioxide 29 Anion Gap 6 L BUN 15 Creatinine 0.7 Creat Clearance w eGFR > 60 Random Glucose 95 Calcium 8.0 L Phosphorus 2.6 D Magnesium 1.7 L Total Bilirubin 0.5 0.6 Direct Bilirubin < 0.2 AST 218 H 210 H ALT 44 42 Alkaline Phosphatase 62 63 Creatine Kinase 4751 H Creatine Kinase Index 0.2 CK-MB (CK-2) 11.420 H Total Protein 5.1 L 4.9 L Albumin 2.4 L 2.4 L Urine Color Ltyellow Urine Appearance Clear Urine pH 5.0 D Ur Specific [place] 1.010 Urine Protein Negative Urine Glucose (UA) Negative Urine Ketones Negative Urine Blood 1+ H Urine Nitrite Negative Urine Bilirubin Negative Urine Urobilinogen Negative Ur Leukocyte Esterase Negative Urine WBC (Auto) 1 Urine RBC (Auto) <1 Ur Epithelial Cells Rare Urine Bacteria Rare Hyaline Casts 1 Active Medications Generic Name Dose Route Start Last Admin Trade Name Freq PRN Reason Stop Dose Admin Albuterol/Ipratropium 1 amp 03/23/17 12:00 03/23/17 20:00 Duoneb - NEB 1 amp RQID JULIET Administration Alprazolam 0.25 mg 03/23/17 08:32 03/23/17 09:09 Xanax - PO 0.25 mg Q8H PRN Administration ANXIETY Atorvastatin Calcium 20 mg 03/22/17 22:00 03/23/17 22:11 Lipitor - PO 20 mg HS JULIET Administration Hydromorphone HCl 1 mg 03/22/17 19:02 Dilaudid Injection - IVPB Q3H PRN PAIN LEVEL 1-5 Hydromorphone HCl 2 mg 03/22/17 19:02 03/23/17 00:34 Dilaudid Injection - IVPB 2 mg Q3H PRN Administration PAIN LEVEL 6-10 Sodium Chloride 1,000 mls @ 100 mls/hr 03/22/17 12:00 03/23/17 12:22 Normal Saline - IV Not Given ASDIR [facility] HEPARIN SOD,PORK IN 0.45% NACL 25,000 units in 500 mls @ 22 mls/hr 03/22/17 19 :02 03/23/17 22:12 Heparin-1/2ns 25,000 Units/500 IVPB 1,100 units/hr TITR JULIET 22 mls/hr Protocol Administration 1,100 UNITS/HR Lisinopril 20 mg 03/23/17 10:00 03/23/17 12:20 Prinivil PO 20 mg DAILY JULIET Administration Methylprednisolone Sodium Succinate 40 mg 03/23/17 11:45 03/23/17 17:50 Solu-Medrol - IVPUSH 03/25/17 11:45 40 mg Q8H-IV JULIET Administration Montelukast Sodium 10 mg 03/22/17 22:00 03/23/17 22:11 Singulair - PO 10 mg HS JULIET Administration Nicotine 21 mg 03/23/17 10:00 03/23/17 12:21 Nicoderm Patch - TD 21 mg DAILY JULIET Administration Non-Formulary Medication 1.7 ml 03/23/17 10:00 Bromfenac Sodium [Bromfenac Sodium] OS DAILY JULIET Ofloxacin 1 drop 03/22/17 22:00 03/23/17 22:12 Ocuflox 0.3% Eye Drops - OS Not Given QID JULIET Pantoprazole Sodium 40 mg 03/23/17 10:00 03/23/17 12:22 Protonix - PO 40 mg DAILY JULIET Administration Prednisolone Acetate 1 drop 03/22/17 22:00 03/23/17 22:12 Pred Forte 1% - OS Not Given QID JULIET Verapamil HCl 180 mg 03/23/17 10:00 03/23/17 12:22 Calan Sr - PO 180 mg DAILY JULIET Administration Warfarin Sodium 5 mg 03/23/17 18:00 03/23/17 17:50 Coumadin - PO 5 mg DAILY@1800 JULIET Administration ASSESSMENT/PLAN: 66 year-old female with a PMH significant for HTN, HLD, CAD s/p stent, COPD, and peripheral arterial disease. Three weeks ago underwent revascularization of the left femoral artery with stent and angioplasty. Admitted for thrombosed femoral and popliteal arteries. Now s/p thrombectomy and bypass. 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 --s/p 03/20/17 left femoral and popliteal thrombectomy, angiogram, popliteal anterior tibial bypass with non-reversed saphenous vein (Eddie) --continue heparin drip, PTT goal 60-80; start bridge to coumadin --continue ASA, Plavix per Edide --serial dopplers and pulse checks Intramuscular hematoma left rectus abdominus Blood loss anemia --Hgb drop from time of admission 11.5 to 8.6, remains stable at 8.6 today --concerned for 3.7 x 8.0cm rectus sheath hematoma seen pre-operatively, but repeat CT 03/22 showed hematoma same size, perhaps slightly smaller --will monitor h/h closely CAD s/p stent --02/23 Echo: LV normal; RV normal; LAE; mild MR; mild TR --resume ASA, Plavix Pulmonary congestion --CT on admission showed some congestion; Lasix IV 40mg x 1 given pre- operatively --CT today shows significant, L>R, lower lobes atelectatic changes v. infiltrate, worse than prior exam --no fever, no leukocytosis, no antibiotics for now --encourage incentive spirometry Common bile duct dilitation --CBD dilated 1.1cm, not dilated on pre-op CT --Bili wnl --AST trended up, 23-->257 peak, now trending down --US gallbladder pending Renal cyst --3.0cm right lower renal pole cysts measuring slightly higher than simple fluid density --US renal pending Distended urinary bladder --may be IV contrast material from several days ago v. blood --UA rechecked, no hematuria Hypertension --continue lisinopril, verapamil Hyperlipidemia --continue Lipitor COPD --stable --continue Spiriva, singulair --duonebs PRN Hypomagnesemia --repleted FEN Fluids: PO intake adequate Electrolytes: replete as indicated Nutrition: low sodium DVT prophylaxis: on heparin drip; start bridge to coumadin Physical therapy Dispo: continues to require inpatient care. Full code. Visit type - Emergency Visit Emergency Visit: Yes ED Registration Date: 03/20/17 Care time: The patient presented to the Emergency Department on the above date and was hospitalized for further evaluation of their emergent condition. - New Patient This patient is new to me today: No - Critical Care Critical Care patient: No
[2017-03-24] MEDS: methylPREDNISolone NA SUCC 40 MG/1 ML VIAL IVPUSH SCH ×2 (01:37→10:58)
[2017-03-24 07:55] LABS: BASO % 0.5 % (0-2.0); HEMATOCRIT 29.1 % (32.4-45.2); HEMOGLOBIN 9.4 GM/dL (10.7-15.3); LYMPH % 6.2 % (8-40); MCH 35.1 pg (25.7-33.7); MCHC 32.5 g/dl (32.0-36.0); MEAN CELL VOLUME 108.2 fl (80-96); MEAN PLT VOLUME 8.5 fl (7.5-11.1); MONO % 3.8 % (3.8-10.2); NEUT % 89.5 % (42.8-82.8); PLATELET COUNT 340 K/MM3 (134-434); RBC 2.69 M/mm3 (3.60-5.2); RDW 16.3 % (11.6-15.6); WHITE BLOOD COUNT 7.5 K/mm3 (4.0-10.0)
--- NOTE | 2017-03-24 07:58 | PN ---
Progress Note (short form) - Note Progress Note: POD #4 s/p Left femoral and popliteal thrombectomy, angiogram, popliteal anterior tibial bypass with non-reversed saphenous vein. Transferred to floor yesterday afternoon. Doing much better today compared to yesterday when I saw her in ICU --> in middle of anxiety attack. Resting comfortably without complaint. Denies n/v/f/c, CP, SOB, numbness/tingling/pain to left foot. Last Vital Signs Temp Pulse Resp BP Pulse Ox 97.8 F 76 18 144/80 95 18 06:00 03/24/17 06:00 03/24/17 06:00 03/24/17 06:00 03/23/17 21:00 Gen: nad LLE: Palpable DP. +1 edema entire extremity warm. Yoli intact. Calf soft/nt. No pain with movement of toes. Problem List - Problems (1) Arterial occlusion, lower extremity Assessment/Plan: POD #4 OOB and ambulate PTT goal 60-80 Coumadin 5mg Cont ASA & Plavix Yoli will be removed in Dr. Morgan's office dc planning per medicine Code(s): I70.209 - UNSP ATHSCL KLUTI KAAH ARTERIES OF EXTREMITIES, UNSP EXTREMITY
[2017-03-24 08:10] LABS: PROTHROMBIN TIME (PATIENT) 65.6 SEC (9.98-11.88)
[2017-03-24 08:25] LABS: INR 5.81 (0.82-1.09)
[2017-03-24 08:29] LABS: ALBUMIN 2.5 g/dl (3.4-5.0); ANION GAP 6 (8-16); BILIRUBIN,TOTAL 0.5 mg/dL (0.2-1.0); BLOOD UREA NITROGEN 14 mg/dL (7-18); CALCIUM 8.5 mg/dL (8.5-10.1); CHLORIDE 103 mmol/L (98-107); CO2 32 mmol/L (21-32); CREATININE 0.7 mg/dL (0.55-1.02); GLUCOSE,RANDOM 164 mg/dL (74-106); MAGNESIUM 1.8 mg/dL (1.8-2.4); PHOSPHOROUS 3.7 mg/dL (2.5-4.9); POTASSIUM 4.2 mmol/L (3.5-5.1); SGOT/AST 123 U/L (15-37); SGPT/ALT 45 U/L (12-78); SODIUM 141 mmol/L (136-145); TOT PROT 5.6 g/dl (6.4-8.2)
[2017-03-24 08:30] LABS: ALK PHOS 66 U/L (45-117)
[2017-03-24] MEDS: ALBUTEROL SO4 2.5/IPRATROPIUM 0.5 INH SOL 3 ML VIAL.NEB. NEB SCH ×4 (08:57→21:45)
[2017-03-24] MEDS ORDERED: PT OWN MED DRAWER 7, Y5N ONE (10:26)
[2017-03-24] MEDS: NICOTINE 21 MG/24 HOURS TOPICAL PATCH TD SCH (10:59)
[2017-03-24] MEDS: LISINOPRIL 20 MG TABLET (FP) PO SCH (10:59)
[2017-03-24] MEDS: PANTOPRAZOLE 40 MG TABLET (FP) PO SCH (10:59)
[2017-03-24] MEDS: VERAPAMIL HCL 180 MG E.R. TABLET (FP) PO SCH (10:59)
[2017-03-24] MEDS: oxyCODONE HCL 5 MG TABLET PO PRN ×2 (11:24→20:21)
--- NOTE | 2017-03-24 12:41 | PN ---
Progress Note (short form) - Note Progress Note: PULMONARY BREATHING IMPROVED FAMILY PRESENT/EATING LUNCH VSS/AFEBRILE ANICTERIC SCATTERED MILD RHONCHI S1S2 BS+ LEFT LOWER EXT S/P LEFT FEM/POP THROMBECTOMY POP/ANTERIOR TIBIAL BYPASS CXR RESOLVING CONGESTIVE CHANGES Occlusion of Left Femoral/Popliteal Arteries s/p Left Femoral/Popliteal Thrombectomy/Popliteal Anterior Tibial Bypass PAD CAD s/p stent Acute Kidney Injury COPD HTN Hyperlipidemia Smoker - responded to lasix - inhaled bronchodilators - have discontinued steroids - O2 to keep SpO2 >90% - continue heparin gtt, transition to coumadin - plavix - pain control - incentive nuha Elsi ISSA MD
[2017-03-24] MEDS: prednisoLONE ACETATE 1% OPHTH SUSP 5 ML BOTTLE OS SCH (12:56)
[2017-03-24] MEDS: OFLOXACIN 0.3% OPHTHALMIC SOLUTION 5 ML BOTTLE OS SCH (12:56)
[2017-03-24] MEDS: ACETAMINOPHEN 325 MG TABLET (FP) PO PRN ×2 (15:27→21:32)
--- NOTE | 2017-03-24 16:09 | CON.GI ---
Consult Consult Specialty:: GI Reason for Consultation:: Abnormal CAT scan of pancreaticobiliary system - History of Present Illness History of Present Illness: Chart reviewed. Events noted. The patient is recovering from left Femoral/Popliteal Thrombectomy/Popliteal Anterior Tibial Bypass. Developed abdominal wall hematoma and anemia for which a CAT scan was done. The CT scan revealed dilated CBD and PD with normal intrahepatic biliary ducts, no other significant pathology, or ductal defects. Liver chemistry is essentially normal. Normal total bilirubin and alkaline phosphatase. Patient reports no history of acute, or recurrent pancreatitis, gallbladder disease, gallstone issues. Denies history of jaundice, dysphagia, odynophagia, chronic heartburn, melena, hematochezia, change in stool caliber. She tells me she is due for screening colonoscopy. 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: Yes: Peripheral Neuropathy Cardio/Vascular: Yes: CAD, HTN, Hyperlipdemia, Other (Cardiac stents placed, history of peripheral vascular disease) Pulmonary: Yes: COPD, Other (Former smoker) - Past Surgical History Past Surgical History: Yes: Joint Replacement (left knee), Stent - Alcohol/Substance Use Hx Alcohol Use: Yes (SOCIAL) - Smoking History Smoking history: Former smoker Have you smoked in the past 12 months: Yes Aproximately how many cigarettes per day: 2 If you are a former smoker, when did you quit?: 2 WKS Home Medications - Allergies Allergies/Adverse Reactions: Allergies Allergy/AdvReac Type Severity Reaction Status Date / Time No Known Allergies Allergy Verified 03/20/17 08:58 - Home Medications Home Medications: Ambulatory Orders Bromfenac Sodium 1.7 ml OS DAILY 02/19/17 Clopidogrel Bisulfate [Plavix -] 75 mg PO DAILY 02/19/17 Furosemide [Lasix -] 40 mg PO PRN 02/19/17 Gabapentin 600 mg PO QID 02/19/17 Montelukast Na [Singulair -] 10 mg PO HS 02/19/17 Ofloxacin 0.3% Ophth Soln [Ocuflox -] 1 drop OS QID 02/19/17 Potassium Bicarbonate/Cit AC [Effer-K 20 Meq Tablet Eff] 20 meq PO DAILY Prednisolone 1% Ophthalmic [Pred Forte 1% -] 1 drop OS QID 02/19/17 Simvastatin 40 mg PO HS 02/19/17 Verapamil HCl ER [Calan Sr -] 180 mg PO DAILY 02/19/17 Lisinopril [Prinivil] 20 mg PO DAILY #30 tablet 02/28/17 Nicotine Patch [Nicoderm Patch -] 1 patch TD DAILY #30 patch 02/28/17 Nystatin Oral Suspension - [Nystatin Oral Susp 088157 Units/5 ML -] 500,000 units PO Q6H 6 Days #1 cup 02/28/17 Pantoprazole Sodium [Protonix -] 40 mg PO DAILY #30 tablet.ec 02/28/17 Prednisone 10 mg PO ASDIR #50 tablet 02/28/17 Tiotropium [place] [Spiriva] 1 puff IH DAILY #1 inh 02/28/17 Family Disease History - Family Disease History Family History: Unremarkable (noncontributory) Review of Systems Findings/Remarks: Please refer to H&P and history of present illness Physical Exam-GI Vital Signs: Vital Signs Temperature 98.4 F 03/24/17 15:33 Pulse Rate 84 03/24/17 15:33 Respiratory Rate 18 03/24/17 15:33 Blood Pressure 120/56 03/24/17 15:33 O2 Sat by Pulse Oximetry (%) 97 03/24/17 09:00 Constitutional: Yes: Well Nourished, No Distress, Calm Eyes: Yes: Conjunctiva Clear HENT: Yes: Atraumatic Neck: Yes: Supple Cardiovascular: Yes: Regular Rate and Rhythm Respiratory: Yes: On Nasal O2, SOB Gastrointestinal Inspection: No: Ascites, Distention ...Palpate: Yes: Soft. No: Firm/Rigid, Guarding, Tenderness ...Percussion: No: Fluid Wave Neurological: Yes: Alert, Oriented Labs: CBC, BMP 03/24/17 06:00 03/24/17 06:00 INR, PTT INR 5.81 (0.82-1.09) H* D 03/24/17 06:00 CBCD WBC 7.5 K/mm3 (4.0-10.0) 03/24/17 06:00 RBC 2.69 M/mm3 (3.60-5.2) L 03/24/17 06:00 Hgb 9.4 GM/dL (10.7-15.3) L 03/24/17 06:00 Hct 29.1 % (32.4-45.2) L 03/24/17 06:00 MCV 108.2 fl (80-96) H 03/24/17 06:00 MCHC 32.5 g/dl (32.0-36.0) 03/24/17 06:00 RDW 16.3 % (11.6-15.6) H 03/24/17 06:00 Plt Count 340 K/MM3 (134-434) 03/24/17 06:00 MPV 8.5 fl (7.5-11.1) 03/24/17 06:00 CMP Sodium 141 mmol/L (136-145) 03/24/17 06:00 Potassium 4.2 mmol/L (3.5-5.1) 03/24/17 06:00 Chloride 103 mmol/L (98-107) 03/24/17 06:00 Carbon Dioxide 32 mmol/L (21-32) 03/24/17 06:00 Anion Gap 6 (8-16) L 03/24/17 06:00 BUN 14 mg/dL (7-18) 03/24/17 06:00 Creatinine 0.7 mg/dL (0.55-1.02) 03/24/17 06:00 Creat Clearance w eGFR > 60 (>60) 03/24/17 06:00 Calcium 8.5 mg/dL (8.5-10.1) 03/24/17 06:00 Total Bilirubin 0.5 mg/dL (0.2-1.0) 03/24/17 06:00 AST 123 U/L (15-37) H D 03/24/17 06:00 ALT 45 U/L (12-78) 03/24/17 06:00 Alkaline Phosphatase 66 U/L (45-117) 03/24/17 06:00 Total Protein 5.6 g/dl (6.4-8.2) L 03/24/17 06:00 Albumin 2.5 g/dl (3.4-5.0) L 03/24/17 06:00 Imaging - Results Cat Scan: Report Reviewed Ultrasound: Report Reviewed MRI: Pending Problem List - Problems (1) Macrocytic anemia Code(s): D53.9 - NUTRITIONAL ANEMIA, UNSPECIFIED (2) Dilated bile duct Code(s): K83.8 - OTHER SPECIFIED DISEASES OF BILIARY TRACT (3) Dilated pancreatic duct Code(s): K86.89 - OTHER SPECIFIED DISEASES OF PANCREAS (4) Arterial occlusion, lower extremity Code(s): I70.209 - UNSP ATHSCL [place] ARTERIES OF EXTREMITIES, UNSP EXTREMITY Assessment/Plan Asymptomatic, common hepatic and pancreatic duct dilatation with no evidence of cholestasis on blood work no obvious lesions on ultrasound and CT of the abdomen. No history of gastrointestinal, hepatic, pancreaticobiliary issues in the past. Microcytic anemia due for screening colonoscopy. Hypercoagulable state while anticoagulated Agree with MRI/MRCP Repeat liver chemistry, direct bilirubin and alkaline phosphatase in the morning. B12, Folate, Iron profile Screening colonopscopy as OP will follow the above results
[2017-03-24] MEDS: ALPRAZolam 0.25 MG TABLET PO PRN (17:56)
[2017-03-24] MEDS ORDERED: ALPRAZolam 0.25 MG TABLET PO ONE (18:31)
--- NOTE | 2017-03-24 20:21 | PN ---
Physical Exam: SUBJECTIVE: Patient seen and examined. Feeling better. Pain well-managed. OBJECTIVE: Vital Signs Period Temp Pulse Resp BP Sys/Olguin Pulse Ox Last 24 Hr 97.5 F-98.4 F 72-91 18-18 120-144/56-80 95-97 GENERAL: The patient is awake, alert, and fully oriented, in no acute distress. LUNGS: Diminished breath sounds at bases HEART: Regular rate and rhythm, S1, S2 ABDOMEN: Soft, nontender, nondistended, normoactive bowel sounds UPPER EXTREMITIES: 2+ pulses, warm, well-perfused. No cyanosis. No clubbing. No peripheral edema. RIGHT LOWER EXTREMITY: pulses not palpable nor dopplerable; foot and leg are warm, trace edema LEFT LOWER EXTREMITY: foot and leg are warm, pink, palpable DP pulse; two vertical surgical staple incisions, edges well approximated, no erythema, no exudate NEUROLOGICAL: Cranial nerves II-XII intact. Laboratory Results - last 24 hr 03/24/17 03/24/17 03/24/17 06:00 06:00 06:00 WBC RBC Hgb Hct MCV MCH MCHC RDW Plt Count MPV Neutrophils % Lymphocytes % Monocytes % Eosinophils % Basophils % PT with INR 65.60 H INR 5.81 H* D PTT (Actin FS) 78.9 H Sodium 141 Potassium 4.2 Chloride 103 Carbon Dioxide 32 Anion Gap 6 L BUN 14 Creatinine 0.7 Creat Clearance w eGFR > 60 Random Glucose 164 H Calcium 8.5 Phosphorus 3.7 D Magnesium 1.8 Total Bilirubin 0.5 AST 123 H D ALT 45 Alkaline Phosphatase 66 Total Protein 5.6 L Albumin 2.5 L 03/24/17 06:00 WBC 7.5 RBC 2.69 L Hgb 9.4 L Hct 29.1 L MCV 108.2 H MCH 35.1 H MCHC 32.5 RDW 16.3 H Plt Count 340 MPV 8.5 Neutrophils % 89.5 H D Lymphocytes % 6.2 L D Monocytes % 3.8 Eosinophils % 0.0 D Basophils % 0.5 PT with INR INR PTT (Actin FS) Sodium Potassium Chloride Carbon Dioxide Anion Gap BUN Creatinine Creat Clearance w eGFR Random Glucose Calcium Phosphorus Magnesium Total Bilirubin AST ALT Alkaline Phosphatase Total Protein Albumin Active Medications Generic Name Dose Route Start Last Admin Trade Name Freq PRN Reason Stop Dose Admin Acetaminophen 650 mg 03/24/17 11:12 03/24/17 15:27 Tylenol - PO 650 mg Q6H PRN Administration MILD PAIN Albuterol/Ipratropium 1 amp 03/23/17 12:00 03/24/17 16:46 Duoneb - NEB 1 amp RQID JULIET Administration Alprazolam 0.25 mg 03/23/17 08:32 03/24/17 17:56 Xanax - PO 0.25 mg Q8H PRN Administration ANXIETY Alprazolam 0.25 mg 03/24/17 18:31 Xanax - PO 03/24/17 18:32 ONCE ONE Atorvastatin Calcium 20 mg 03/22/17 22:00 03/23/17 22:11 Lipitor - PO 20 mg HS JULIET Administration Lisinopril 20 mg 03/23/17 10:00 03/24/17 10:59 Prinivil PO 20 mg DAILY JULIET Administration Montelukast Sodium 10 mg 03/22/17 22:00 03/23/17 22:11 Singulair - PO 10 mg HS JULIET Administration Nicotine 21 mg 03/23/17 10:00 03/24/17 10:59 Nicoderm Patch - TD 21 mg DAILY JULIET Administration Non-Formulary Medication 1.7 ml 03/23/17 10:00 Bromfenac Sodium [Bromfenac Sodium] OS DAILY [facility] Ofloxacin 1 drop 03/25/17 10:00 Ocuflox 0.3% Eye Drops - OS DAILY [facility] Oxycodone HCl 5 mg 03/24/17 11:11 03/24/17 11:24 Roxicodone - PO 5 mg Q6H PRN Administration PAIN LEVEL 4 - 6 Pantoprazole Sodium 40 mg 03/23/17 10:00 03/24/17 10:59 Protonix - PO 40 mg DAILY JULIET Administration Prednisolone Acetate 1 drop 03/25/17 10:00 Pred Forte 1% - OS DAILY JULIET Verapamil HCl 180 mg 03/23/17 10:00 03/24/17 10:59 Calan Sr - PO 180 mg DAILY JULIET Administration Warfarin Sodium 5 mg 03/23/17 18:00 03/23/17 17:50 Coumadin - PO 5 mg DAILY@1800 JULIET Administration ASSESSMENT/PLAN 66 year-old female with a PMH significant for HTN, HLD, CAD s/p stent, COPD, and peripheral arterial disease. Three weeks ago underwent revascularization of the left femoral artery with stent and angioplasty. Admitted for thrombosed femoral and popliteal arteries. Now s/p thrombectomy and bypass. 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 --s/p 03/20/17 left femoral and popliteal thrombectomy, angiogram, popliteal anterior tibial bypass with non-reversed saphenous vein (Eddie) --heparin drip d/c'd; ready to start bridge to coumadin, INR 5.81 so hold dose tonight --continue ASA, Plavix per Eddie --serial dopplers and pulse checks Intramuscular hematoma left rectus abdominus Blood loss anemia --H/H stable --concerned for 3.7 x 8.0cm rectus sheath hematoma seen pre-operatively, but repeat CT 03/22 showed hematoma same size, perhaps slightly smaller --will monitor h/h closely CAD s/p stent --02/23 Echo: LV normal; RV normal; LAE; mild MR; mild TR --resume ASA, Plavix Pulmonary congestion --CT on admission showed some congestion; Lasix IV 40mg x 1 given pre- operatively --CT today shows significant, L>R, lower lobes atelectatic changes v. infiltrate, worse than prior exam --no fever, no leukocytosis, no antibiotics for now --encourage incentive spirometry Common bile duct dilitation --CBD dilated 1.1cm, not dilated on pre-op CT --Bili wnl --AST trended up, 23-->257 peak, now trending down --US: dilated common bile duct 8mm, and dilated pancreatic duct 4.5mm at the level of the tail --MRCP ordered --GI consult requested Renal cyst --seen on US Distended urinary bladder --may be IV contrast material from several days ago v. blood --UA rechecked, no hematuria Hypertension --continue lisinopril, verapamil Hyperlipidemia --continue Lipitor COPD --stable --continue Spiriva, singulair --duonebs PRN Hypomagnesemia, resolved Anxiety --xanax q8h prn FEN Fluids: PO intake adequate Electrolytes: replete as indicated Nutrition: low sodium DVT prophylaxis: hold coumadin tonight for supratherapeutic INR Physical therapy Dispo: wants to go to [facility]. Full code. Visit type - Emergency Visit Emergency Visit: Yes ED Registration Date: 03/20/17 Care time: The patient presented to the Emergency Department on the above date and was hospitalized for further evaluation of their emergent condition. - New Patient This patient is new to me today: No - Critical Care Critical Care patient: No
[2017-03-24] MEDS: MONTELUKAST NA 10 MG TABLET PO SCH (21:28)
[2017-03-24] MEDS: ATORVASTATIN CA 20 MG TABLET (FP) PO SCH (21:28)
[2017-03-25] MEDS ORDERED: ALBUTEROL SO4 0.083% IH SOL 2.5 MG/3 ML VIAL.NEB. NEB PRN (02:09)
[2017-03-25] MEDS: oxyCODONE HCL 5 MG TABLET PO PRN ×3 (02:25→23:33)
[2017-03-25 07:24] LABS: BASO % 0.2 % (0-2.0); HEMATOCRIT 28.9 % (32.4-45.2); HEMOGLOBIN 9.3 GM/dL (10.7-15.3); MCH 34.9 pg (25.7-33.7); MCHC 32.1 g/dl (32.0-36.0); MEAN CELL VOLUME 108.6 fl (80-96); MEAN PLT VOLUME 8.3 fl (7.5-11.1); MONO % 7.6 % (3.8-10.2); NEUT % 85.2 % (42.8-82.8); PLATELET COUNT 381 K/MM3 (134-434); RBC 2.66 M/mm3 (3.60-5.2); RDW 16.5 % (11.6-15.6); WHITE BLOOD COUNT 10.4 K/mm3 (4.0-10.0)
[2017-03-25 08:26] LABS: ALBUMIN 2.7 g/dl (3.4-5.0); ALK PHOS 61 U/L (45-117); BILIRUBIN,DIRECT < 0.2 mg/dL (0.0-0.2); BILIRUBIN,TOTAL 0.5 mg/dL (0.2-1.0); LIPASE 56 U/L (73-393); SGOT/AST 60 U/L (15-37); SGPT/ALT 50 U/L (12-78); TOT PROT 5.7 g/dl (6.4-8.2)
[2017-03-25] MEDS: ALBUTEROL SO4 2.5/IPRATROPIUM 0.5 INH SOL 3 ML VIAL.NEB. NEB SCH ×4 (08:30→20:00)
--- NOTE | 2017-03-25 08:35 | PN ---
Progress Note (short form) - Note Progress Note: No C/o VSS Small amount of serous drainage from upper thigh. Foot warm, palpable DP Elevated ALT with normal AST is due to muscle injury from ischemia in this case. CPK was laso elevated but declining post-op. There is no need for GI work-up of the liver as other LFT are normal. OK for transfer to Rehab today. Problem List - Problems (1) Arterial occlusion, lower extremity Code(s): I70.209 - UNSP ATHSCL [place] ARTERIES OF EXTREMITIES, UNSP EXTREMITY
[2017-03-25 08:49] LABS: PROTHROMBIN TIME (PATIENT) 101.2 SEC (9.98-11.88)
[2017-03-25 08:52] LABS: INR 8.96 (0.82-1.09)
--- NOTE | 2017-03-25 09:42 | PN ---
Progress Note (short form) - Note Progress Note: Breathing feels OK. No CP or SOB. Seen by vascular this AM. INR noted. Intake & Output 03/22/17 03/23/17 03/24/17 03/25/17 23:59 23:59 23:59 23:59 Intake Total 2314 1301 194 100 Output Total 750 2300 Balance 1564 -999 194 100 Weight 160 lb 1.6 oz Last Vital Signs Temp Pulse Resp BP Pulse Ox 97.7 F 92 H 18 152/70 96 03/25/17 09:07 03/25/17 09:07 03/25/17 09:07 03/25/17 09:07 03/24/17 21:00 Active Medications Acetaminophen (Tylenol -) 650 mg PO Q6H PRN PRN Reason: MILD PAIN Last Admin: 03/24/17 21:32 Dose: 650 mg Albuterol Sulfate (Ventolin 0.083% Nebulizer Soln -) 1 amp NEB Q4H PRN PRN Reason: SHORT OF BREATH/WHEEZING Last Admin: 03/25/17 02:26 Dose: 1 amp Albuterol/Ipratropium (Duoneb -) 1 amp NEB RQID [facility] Last Admin: 03/24/17 21:45 Dose: 1 amp Alprazolam (Xanax -) 0.25 mg PO Q8H PRN PRN Reason: ANXIETY Last Admin: 03/24/17 17:56 Dose: 0.25 mg Atorvastatin Calcium (Lipitor -) 20 mg PO HS [facility] Last Admin: 03/24/17 21:28 Dose: 20 mg Lisinopril (Prinivil) 20 mg PO DAILY [facility] Last Admin: 03/24/17 10:59 Dose: 20 mg Montelukast Sodium (Singulair -) 10 mg PO HS [facility] Last Admin: 03/24/17 21:28 Dose: 10 mg Nicotine (Nicoderm Patch -) 21 mg TD DAILY [facility] Last Admin: 03/24/17 10:59 Dose: 21 mg Non-Formulary Medication (Bromfenac Sodium [Bromfenac Sodium]) 1.7 ml OS DAILY [facility] Ofloxacin (Ocuflox 0.3% Eye Drops -) 1 drop OS DAILY [facility] Oxycodone HCl (Roxicodone -) 5 mg PO Q6H PRN PRN Reason: PAIN LEVEL 4 - 6 Last Admin: 03/25/17 02:25 Dose: 5 mg Pantoprazole Sodium (Protonix -) 40 mg PO DAILY [facility] Last Admin: 03/24/17 10:59 Dose: 40 mg Prednisolone Acetate (Pred Forte 1% -) 1 drop OS DAILY [facility] Verapamil HCl (Calan Sr -) 180 mg PO DAILY [facility] Last Admin: 03/24/17 10:59 Dose: 180 mg Warfarin Sodium (Coumadin -) 5 mg PO DAILY@1800 [facility] Last Admin: 03/23/17 17:50 Dose: 5 mg Gen: NAD Heart: S1S2 Lung: basilar rhonchi/rales, no wheezes Abd: soft, nontender Ext: no edema, incisions slight serous drainage/clean Laboratory Results - last 24 hr 03/25/17 03/25/17 03/25/17 06:30 06:30 06:30 WBC 10.4 H D RBC 2.66 L Hgb 9.3 L Hct 28.9 L MCV 108.6 H MCH 34.9 H MCHC 32.1 RDW 16.5 H Plt Count 381 MPV 8.3 Neutrophils % 85.2 H Lymphocytes % 7.0 L Monocytes % 7.6 D Eosinophils % 0.0 Basophils % 0.2 PT with INR 101.20 H INR 8.96 H* D PTT (Actin FS) 34.0 D Ferritin Total Bilirubin Direct Bilirubin AST ALT Alkaline Phosphatase Total Protein Albumin Lipase Vitamin B12 Serum Folate 03/25/17 06:30 WBC RBC Hgb Hct MCV MCH MCHC RDW Plt Count MPV Neutrophils % Lymphocytes % Monocytes % Eosinophils % Basophils % PT with INR INR PTT (Actin FS) Ferritin 360.841 H Total Bilirubin 0.5 Direct Bilirubin < 0.2 AST 60 H ALT 50 Alkaline Phosphatase 61 Total Protein 5.7 L Albumin 2.7 L Lipase 56 L Vitamin B12 325 Serum Folate 4 ASSESSMENT AND PLAN: Occlusion of Left Femoral/Popliteal Arteries s/p Left Femoral/Popliteal Thrombectomy/Popliteal Anterior Tibial Bypass PAD CAD s/p stent Acute Kidney Injury COPD HTN Hyperlipidemia Smoker - Repeat INR STAT - Monitor off steroids - BD TX - O2 to keep SpO2 >90% - plavix - pain control - incentive spirometry - smoking cessation - If elevated INR is a lab error -> D/C planning Dr Chacon
--- NOTE | 2017-03-25 09:47 | PN ---
Progress Note (short form) - Note Progress Note: Subjective: The patient was seen and examined at the bedside, she has no complaints at this time. Unable to performe MRCP yesterday because of recent procedure with kami? per patient INR 8.9 this AM, will repeat stat. No evidence of active bleeding Current Medications Generic Name Dose Route Start Last Admin Trade Name Freq PRN Reason Stop Dose Admin Acetaminophen 650 mg 03/24/17 11:12 03/24/17 21:32 Tylenol - PO 650 mg Q6H PRN Administration MILD PAIN Albuterol Sulfate 1 amp 03/25/17 02:09 03/25/17 02:26 Ventolin 0.083% Nebulizer Soln - NEB 1 amp Q4H PRN Administration SHORT OF BREATH/WHEEZING Albuterol/Ipratropium 1 amp 03/23/17 12:00 03/24/17 21:45 Duoneb - NEB 1 amp RQID JULIET Administration Alprazolam 0.25 mg 03/23/17 08:32 03/24/17 17:56 Xanax - PO 0.25 mg Q8H PRN Administration ANXIETY Atorvastatin Calcium 20 mg 03/22/17 22:00 03/24/17 21:28 Lipitor - PO 20 mg HS JULIET Administration Lisinopril 20 mg 03/23/17 10:00 03/24/17 10:59 Prinivil PO 20 mg DAILY [facility]ULITE Administration Montelukast Sodium 10 mg 03/22/17 22:00 03/24/17 21:28 Singulair - PO 10 mg HS JULIET Administration Nicotine 21 mg 03/23/17 10:00 03/24/17 10:59 Nicoderm Patch - TD 21 mg DAILY JULIET Administration Non-Formulary Medication 1.7 ml 03/23/17 10:00 Bromfenac Sodium [Bromfenac Sodium] OS DAILY JULIET Ofloxacin 1 drop 03/25/17 10:00 Ocuflox 0.3% Eye Drops - OS DAILY JULIET Oxycodone HCl 5 mg 03/24/17 11:11 03/25/17 02:25 Roxicodone - PO 5 mg Q6H PRN Administration PAIN LEVEL 4 - 6 Pantoprazole Sodium 40 mg 03/23/17 10:00 03/24/17 10:59 Protonix - PO 40 mg DAILY JULIET Administration Prednisolone Acetate 1 drop 03/25/17 10:00 Pred Forte 1% - OS DAILY JULIET Verapamil HCl 180 mg 03/23/17 10:00 03/24/17 10:59 Calan Sr - PO 180 mg DAILY JULIET Administration Warfarin Sodium 5 mg 03/23/17 18:00 03/23/17 17:50 Coumadin - PO 5 mg DAILY@1800 JULIET Administration Objective: Vital Signs Period Temp Pulse Resp BP Sys/Olguin Pulse Ox Last 24 Hr 97.5 F-98.4 F 71-92 18-18 120-152/56-77 96 Physical Exam: General: NAD, A&Ox3 Lungs: CTA bilaterally Heart: CBCD WBC 10.4 K/mm3 (4.0-10.0) H D 03/25/17 06:30 RBC 2.66 M/mm3 (3.60-5.2) L 03/25/17 06:30 Hgb 9.3 GM/dL (10.7-15.3) L 03/25/17 06:30 Hct 28.9 % (32.4-45.2) L 03/25/17 06:30 MCV 108.6 fl (80-96) H 03/25/17 06:30 MCHC 32.1 g/dl (32.0-36.0) 03/25/17 06:30 RDW 16.5 % (11.6-15.6) H 03/25/17 06:30 Plt Count 381 K/MM3 (134-434) 03/25/17 06:30 MPV 8.3 fl (7.5-11.1) 03/25/17 06:30 CMP Sodium 141 mmol/L (136-145) 03/24/17 06:00 Potassium 4.2 mmol/L (3.5-5.1) 03/24/17 06:00 Chloride 103 mmol/L (98-107) 03/24/17 06:00 Carbon Dioxide 32 mmol/L (21-32) 03/24/17 06:00 Anion Gap 6 (8-16) L 03/24/17 06:00 BUN 14 mg/dL (7-18) 03/24/17 06:00 Creatinine 0.7 mg/dL (0.55-1.02) 03/24/17 06:00 Creat Clearance w eGFR > 60 (>60) 03/24/17 06:00 Random Glucose 164 mg/dL (74-106) H 03/24/17 06:00 Calcium 8.5 mg/dL (8.5-10.1) 03/24/17 06:00 Total Bilirubin 0.5 mg/dL (0.2-1.0) 03/25/17 06:30 AST 60 U/L (15-37) H 03/25/17 06:30 ALT 50 U/L (12-78) 03/25/17 06:30 Alkaline Phosphatase 61 U/L (45-117) 03/25/17 06:30 Total Protein 5.7 g/dl (6.4-8.2) L 03/25/17 06:30 Albumin 2.7 g/dl (3.4-5.0) L 03/25/17 06:30 CARDIAC ENZYMES Creatine Kinase 4751 IU/L (26-192) H 03/23/17 05:00 Imagin03/20/17 CTA aorto-iliac and b/l lower extremity runoff: occluded stent within the LEFT superficial femoral and popliteal arteries with no flow in the LEFT lower leg and foot. 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 Plan: 1) Thrombosed femoral and popliteal arteries - 02/24/17: revascularization of left femoral artery with stents x 2 and angioplasty - 03/20/17 left femoral and popliteal thrombectomy, angiogram, popliteal anterior tibial bypass with non-reversed saphenous vein - ASA and Plavix per Dr. Morgan - Serial dopplers and pulse checks - Holding Coumadin for supratherapeutic INR - Appreciate vascular surgery consult 2) Right common femoral artery dissection - As seen on CTA - Management per vascular surgery 3) Rectus sheath hematoma - Repeat CT 03/22 showed hematoma stable - H/H stable 4) Elevated INR - Repeat INR now - Patient is high risk for thrombosis, will hold off on giving Vitamin K at this time - Continue to trend 5) Common bile duct dilatation - US with dilated common bile duct 8mm - MRCP ordered but not performed at the patient had recent stenting, awaiting radiology to call back to see if MRCP possible - Appreciate GI consult 6) CAD s/p stenting - ASA and Plavix per Dr. Morgan - Continue Lipitor 7) Pulmonary congestion - 03/22/18: CT with significant atelectasis changes v. infiltrates - Chest X-ray on 03/24/17 with resolving CHF - WBC slight increase today, will hold off on abx at this time. Afebrile - Encourage incentive spirometer 8) HTN - Continue Lisinopril - Continue Verapamil 9) COPD - No active issues - Continue Spiriva - Continue Montelukast 10) F/E/N: - Low sodium diet - Monitor electrolytes 11) Prophylaxis: - Hold all chemical DVT prophylaxis for supratherapeutic INR 12) Dispo: - Can discharge to [facility] once INR decreases CODE STATUS: FULL CODE Visit type - Emergency Visit Emergency Visit: Yes ED Registration Date: 03/20/17 Care time: The patient presented to the Emergency Department on the above date and was hospitalized for further evaluation of their emergent condition. - New Patient This patient is new to me today: Yes Date on this admission: 03/27/17 - Critical Care Critical Care patient: No
[2017-03-25] MEDS: NICOTINE 21 MG/24 HOURS TOPICAL PATCH TD SCH (09:58)
[2017-03-25] MEDS: LISINOPRIL 20 MG TABLET (FP) PO SCH (09:58)
[2017-03-25] MEDS: PANTOPRAZOLE 40 MG TABLET (FP) PO SCH (09:58)
[2017-03-25] MEDS: VERAPAMIL HCL 180 MG E.R. TABLET (FP) PO SCH (10:01)
[2017-03-25] MEDS: OFLOXACIN 0.3% OPHTHALMIC SOLUTION 5 ML BOTTLE OS SCH (10:02)
[2017-03-25] MEDS: prednisoLONE ACETATE 1% OPHTH SUSP 5 ML BOTTLE OS SCH (10:03)
[2017-03-25 11:49] LABS: PROTHROMBIN TIME (PATIENT) 97.9 SEC (9.98-11.88)
[2017-03-25 12:12] LABS: INR 8.66 (0.82-1.09)
--- NOTE | 2017-03-25 15:25 | PN ---
Progress Note, Physician History of Present Illness: Continues to be asymptomatic. - Current Medication List Current Medications: Active Medications Acetaminophen (Tylenol -) 650 mg PO Q6H PRN PRN Reason: MILD PAIN Last Admin: 03/24/17 21:32 Dose: 650 mg Albuterol Sulfate (Ventolin 0.083% Nebulizer Soln -) 1 amp NEB Q4H PRN PRN Reason: SHORT OF BREATH/WHEEZING Last Admin: 03/25/17 02:26 Dose: 1 amp Albuterol/Ipratropium (Duoneb -) 1 amp NEB RQID [facility] Last Admin: 03/25/17 12:07 Dose: 1 amp Alprazolam (Xanax -) 0.25 mg PO Q8H PRN PRN Reason: ANXIETY Last Admin: 03/24/17 17:56 Dose: 0.25 mg Atorvastatin Calcium (Lipitor -) 20 mg PO HS [facility] Last Admin: 03/24/17 21:28 Dose: 20 mg Lisinopril (Prinivil) 20 mg PO DAILY [facility] Last Admin: 03/25/17 09:58 Dose: 20 mg Montelukast Sodium (Singulair -) 10 mg PO [facility] Last Admin: 03/24/17 21:28 Dose: 10 mg Nicotine (Nicoderm Patch -) 21 mg TD DAILY [facility] Last Admin: 03/25/17 09:58 Dose: 21 mg Non-Formulary Medication (Bromfenac Sodium [Bromfenac Sodium]) 1.7 ml OS DAILY [facility] Ofloxacin (Ocuflox 0.3% Eye Drops -) 1 drop OS DAILY [facility] Last Admin: 03/25/17 10:02 Dose: 1 drop Oxycodone HCl (Roxicodone -) 5 mg PO Q6H PRN PRN Reason: PAIN LEVEL 4 - 6 Last Admin: 03/25/17 02:25 Dose: 5 mg Pantoprazole Sodium (Protonix -) 40 mg PO DAILY [facility] Last Admin: 03/25/17 09:58 Dose: 40 mg Prednisolone Acetate (Pred Forte 1% -) 1 drop OS DAILY [facility] Last Admin: 03/25/17 10:03 Dose: 1 drop Verapamil HCl (Calan Sr -) 180 mg PO DAILY [facility] Last Admin: 03/25/17 10:01 Dose: 180 mg Warfarin Sodium (Coumadin -) 5 mg PO DAILY@1800 [facility] Last Admin: 03/23/17 17:50 Dose: 5 mg - Objective Vital Signs: Vital Signs Temperature 97.7 F 03/25/17 09:07 Pulse Rate 71 03/25/17 09:35 Respiratory Rate 18 03/25/17 09:07 Blood Pressure 152/70 03/25/17 09:07 O2 Sat by Pulse Oximetry (%) 96 03/25/17 09:35 Constitutional: Yes: Well Nourished, No Distress, Calm Neurological: Yes: Alert, Oriented Labs: CBC, BMP 03/25/17 06:30 03/24/17 06:00 INR, PTT INR 8.66 (0.82-1.09) H* 03/25/17 10:15 CBCD WBC 10.4 K/mm3 (4.0-10.0) H D 03/25/17 06:30 RBC 2.66 M/mm3 (3.60-5.2) L 03/25/17 06:30 Hgb 9.3 GM/dL (10.7-15.3) L 03/25/17 06:30 Hct 28.9 % (32.4-45.2) L 03/25/17 06:30 MCV 108.6 fl (80-96) H 03/25/17 06:30 MCHC 32.1 g/dl (32.0-36.0) 03/25/17 06:30 RDW 16.5 % (11.6-15.6) H 03/25/17 06:30 Plt Count 381 K/MM3 (134-434) 03/25/17 06:30 MPV 8.3 fl (7.5-11.1) 03/25/17 06:30 CMP Sodium 141 mmol/L (136-145) 03/24/17 06:00 Potassium 4.2 mmol/L (3.5-5.1) 03/24/17 06:00 Chloride 103 mmol/L (98-107) 03/24/17 06:00 Carbon Dioxide 32 mmol/L (21-32) 03/24/17 06:00 Anion Gap 6 (8-16) L 03/24/17 06:00 BUN 14 mg/dL (7-18) 03/24/17 06:00 Creatinine 0.7 mg/dL (0.55-1.02) 03/24/17 06:00 Creat Clearance w eGFR > 60 (>60) 03/24/17 06:00 Calcium 8.5 mg/dL (8.5-10.1) 03/24/17 06:00 Total Bilirubin 0.5 mg/dL (0.2-1.0) 03/25/17 06:30 AST 60 U/L (15-37) H 03/25/17 06:30 ALT 50 U/L (12-78) 03/25/17 06:30 Alkaline Phosphatase 61 U/L (45-117) 03/25/17 06:30 Total Protein 5.7 g/dl (6.4-8.2) L 03/25/17 06:30 Albumin 2.7 g/dl (3.4-5.0) L 03/25/17 06:30 Problem List - Problems (1) Macrocytic anemia Code(s): D53.9 - NUTRITIONAL ANEMIA, UNSPECIFIED (2) Dilated bile duct Code(s): K83.8 - OTHER SPECIFIED DISEASES OF BILIARY TRACT (3) Dilated pancreatic duct Code(s): K86.89 - OTHER SPECIFIED DISEASES OF PANCREAS (4) Arterial occlusion, lower extremity Code(s): I70.209 - UNSP ATHSCL [place] ART[place]IES OF EXTREMITIES, UNSP EXTREMITY Assessment/Plan MRCP/MRI was not done to metallic clips on LLE. No laboratory signs of biliary obstruction in settings of dilated CBD, PD. Discussed with the patient and her daughter who was present at bedside. If MRCP/MRI cannot be done in very near future, after kami have been removed, then consider EUS/ERCP to asses pancreaticobiliary lesions. B12, Folate, Iron profile Screening colonoscopy as OP
[2017-03-25] MEDS: MONTELUKAST NA 10 MG TABLET PO SCH (21:29)
[2017-03-25] MEDS: ATORVASTATIN CA 20 MG TABLET (FP) PO SCH (21:29)
[2017-03-26 08:10] LABS: PROTHROMBIN TIME (PATIENT) 45.4 SEC (9.98-11.88)
[2017-03-26 08:12] LABS: HEMATOCRIT 29.2 % (32.4-45.2); HEMOGLOBIN 9.4 GM/dL (10.7-15.3); MCH 34.6 pg (25.7-33.7); MCHC 32.1 g/dl (32.0-36.0); MEAN CELL VOLUME 107.8 fl (80-96); MEAN PLT VOLUME 8.2 fl (7.5-11.1); PLATELET COUNT 374 K/MM3 (134-434); RBC 2.71 M/mm3 (3.60-5.2); RDW 17.2 % (11.6-15.6); WHITE BLOOD COUNT 9.5 K/mm3 (4.0-10.0)
[2017-03-26 08:37] LABS: INR 4.02 (0.82-1.09)
[2017-03-26] MEDS: ALBUTEROL SO4 2.5/IPRATROPIUM 0.5 INH SOL 3 ML VIAL.NEB. NEB SCH ×4 (08:50→20:45)
[2017-03-26] MEDS: PANTOPRAZOLE 40 MG TABLET (FP) PO SCH (09:08)
[2017-03-26] MEDS: VERAPAMIL HCL 180 MG E.R. TABLET (FP) PO SCH (09:08)
[2017-03-26] MEDS: NICOTINE 21 MG/24 HOURS TOPICAL PATCH TD SCH (09:08)
[2017-03-26] MEDS: LISINOPRIL 20 MG TABLET (FP) PO SCH (09:08)
[2017-03-26] MEDS: prednisoLONE ACETATE 1% OPHTH SUSP 5 ML BOTTLE OS SCH (09:09)
[2017-03-26] MEDS: OFLOXACIN 0.3% OPHTHALMIC SOLUTION 5 ML BOTTLE OS SCH (09:10)
--- NOTE | 2017-03-26 10:56 | PN ---
Progress Note (short form) - Note Progress Note: Subjective: The patient was seen and examined at the bedside, she has no complaints at this time. INR 4.02 today, will recheck this PM Current Medications Generic Name Dose Route Start Last Admin Trade Name Freq PRN Reason Stop Dose Admin Acetaminophen 650 mg 03/24/17 11:12 03/24/17 21:32 Tylenol - PO 650 mg Q6H PRN Administration MILD PAIN Albuterol Sulfate 1 amp 03/25/17 02:09 03/25/17 02:26 Ventolin 0.083% Nebulizer Soln - NEB 1 amp Q4H PRN Administration SHORT OF BREATH/WHEEZING Albuterol/Ipratropium 1 amp 03/23/17 12:00 03/26/17 08:50 Duoneb - NEB 1 amp RQID JULI[facility] Administration Alprazolam 0.25 mg 03/23/17 08:32 03/24/17 17:56 Xanax - PO 0.25 mg Q8H PRN Administration ANXIETY Atorvastatin Calcium 20 mg 03/22/17 22:00 03/25/17 21:29 Lipitor - PO 20 mg HS JULIET Administration Lisinopril 20 mg 03/23/17 10:00 03/26/17 09:08 Prinivil PO 20 mg DAILY JULI[facility] Administration Montelukast Sodium 10 mg 03/22/17 22:00 03/25/17 21:29 Singulair - PO 10 mg HS JULIET Administration Nicotine 21 mg 03/23/17 10:00 03/26/17 09:08 Nicoderm Patch - TD 21 mg DAILY JULIET Administration Non-Formulary Medication 1.7 ml 03/23/17 10:00 Bromfenac Sodium [Bromfenac Sodium] OS DAILY J[facility] Ofloxacin 1 drop 03/25/17 10:00 03/26/17 09:10 Ocuflox 0.3% Eye Drops - OS Not Given DAILY JULIET Oxycodone HCl 5 mg 03/24/17 11:11 03/25/17 23:33 Roxicodone - PO 5 mg Q6H PRN Administration PAIN LEVEL 4 - 6 Pantoprazole Sodium 40 mg 03/23/17 10:00 03/26/17 09:08 Protonix - PO 40 mg DAILY JUL[facility] Administration Prednisolone Acetate 1 drop 03/25/17 10:00 03/26/17 09:09 Pred Forte 1% - OS Not Given DAILY J[facility] Verapamil HCl 180 mg 03/23/17 10:00 03/26/17 09:08 Calan Sr - PO 180 mg DAILY JULIET Administration Warfarin Sodium 5 mg 03/23/17 18:00 03/23/17 17:50 Coumadin - PO 5 mg DAILY@1800 JULIET Administration Objective: Vital Signs Period Temp Pulse Resp BP Sys/Olguin Pulse Ox Last 24 Hr 97.8 F-98.5 F 72-82 18-20 123-150/56-78 98 Physical Exam: General: NAD, A&Ox3 Lungs: CTA bilaterally Heart: RRR, S1S2 Ext: LLE with kami and dopplerable DP/PT CBCD WBC 9.5 K/mm3 (4.0-10.0) 03/26/17 06:30 RBC 2.71 M/mm3 (3.60-5.2) L 03/26/17 06:30 Hgb 9.4 GM/dL (10.7-15.3) L 03/26/17 06:30 Hct 29.2 % (32.4-45.2) L 03/26/17 06:30 MCV 107.8 fl (80-96) H 03/26/17 06:30 MCHC 32.1 g/dl (32.0-36.0) 03/26/17 06:30 RDW 17.2 % (11.6-15.6) H 03/26/17 06:30 Plt Count 374 K/MM3 (134-434) 03/26/17 06:30 MPV 8.2 fl (7.5-11.1) 03/26/17 06:30 CMP Sodium 141 mmol/L (136-145) 03/24/17 06:00 Potassium 4.2 mmol/L (3.5-5.1) 03/24/17 06:00 Chloride 103 mmol/L (98-107) 03/24/17 06:00 Carbon Dioxide 32 mmol/L (21-32) 03/24/17 06:00 Anion Gap 6 (8-16) L 03/24/17 06:00 BUN 14 mg/dL (7-18) 03/24/17 06:00 Creatinine 0.7 mg/dL (0.55-1.02) 03/24/17 06:00 Creat Clearance w eGFR > 60 (>60) 03/24/17 06:00 Random Glucose 164 mg/dL (74-106) H 03/24/17 06:00 Calcium 8.5 mg/dL (8.5-10.1) 03/24/17 06:00 Total Bilirubin 0.5 mg/dL (0.2-1.0) 03/25/17 06:30 AST 60 U/L (15-37) H 03/25/17 06:30 ALT 50 U/L (12-78) 03/25/17 06:30 Alkaline Phosphatase 61 U/L (45-117) 03/25/17 06:30 Total Protein 5.7 g/dl (6.4-8.2) L 03/25/17 06:30 Albumin 2.7 g/dl (3.4-5.0) L 03/25/17 06:30 CARDIAC ENZYMES Creatine Kinase 4751 IU/L (26-192) H 03/23/17 05:00 Imagin03/20/17 CTA aorto-iliac and b/l lower extremity runoff: occluded stent within the LEFT superficial femoral and popliteal arteries with no flow in the LEFT lower leg and foot. 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 Plan: 1) Thrombosed femoral and popliteal arteries - 02/24/17: revascularization of left femoral artery with stents x 2 and angioplasty - 03/20/17 left femoral and popliteal thrombectomy, angiogram, popliteal anterior tibial bypass with non-reversed saphenous vein - ASA, Plavix per Dr. Morgan - Serial dopplers and pulse checks - Holding Coumadin for supratherapeutic INR - Appreciate vascular surgery consult 2) Right common femoral artery dissection - As seen on CTA - Management per vascular surgery 3) Rectus sheath hematoma - Repeat CT 03/22 showed hematoma stable - H/H stable 4) Elevated INR - INR now 4.02, recheck INR this afternoon and restart Coumadin if between 2-3 5) Common bile duct dilatation - US with dilated common bile duct 8mm - MRCP ordered but not performed at the patient had recent stenting and kami - Will need follow-up with outpatient GI once kami removed - Denies any abdominal pain - Appreciate GI consult 6) CAD s/p stenting - ASA and Plavix? - Continue Lipitor 7) Pulmonary congestion - 03/22/18: CT with significant atelectasis changes v. infiltrates - Chest X-ray on 03/24/17 with resolving CHF - WBC wnl - Encourage incentive spirometer 8) HTN - Continue Lisinopril - Continue Verapamil 9) COPD - No active issues - Continue Spiriva - Continue Montelukast 10) F/E/N: - Low sodium diet - Monitor electrolytes 11) Prophylaxis: - Hold all chemical DVT prophylaxis for supratherapeutic INR 12) Dispo: - Discharge to [facility] tomorrow at 10am CODE STATUS: FULL CODE Visit type - Emergency Visit Emergency Visit: Yes ED Registration Date: 03/20/17 Care time: The patient presented to the Emergency Department on the above date and was hospitalized for further evaluation of their emergent condition. - New Patient This patient is new to me today: No - Critical Care Critical Care patient: No
[2017-03-26] MEDS: oxyCODONE HCL 5 MG TABLET PO PRN (13:34)
[2017-03-26 17:04] LABS: INR 3.56 (0.82-1.09); PROTHROMBIN TIME (PATIENT) 40.2 SEC (9.98-11.88)
[2017-03-26] MEDS: MONTELUKAST NA 10 MG TABLET PO SCH (21:17)
[2017-03-26] MEDS: ATORVASTATIN CA 20 MG TABLET (FP) PO SCH (21:18)
[2017-03-27 07:41] LABS: INR 2.17 (0.82-1.09); PROTHROMBIN TIME (PATIENT) 24.5 SEC (9.98-11.88)
[2017-03-27 07:54] LABS: HEMATOCRIT 30.9 % (32.4-45.2); HEMOGLOBIN 10.2 GM/dL (10.7-15.3); MCHC 32.9 g/dl (32.0-36.0); MEAN CELL VOLUME 106.4 fl (80-96); MEAN PLT VOLUME 7.9 fl (7.5-11.1); PLATELET COUNT 374 K/MM3 (134-434); RBC 2.91 M/mm3 (3.60-5.2); RDW 16.2 % (11.6-15.6); WHITE BLOOD COUNT 8.8 K/mm3 (4.0-10.0)
[2017-03-27 08:07] LABS: SERUM IRON SATURATION 13 % (15-55); TOTAL IRON BINDING CAPACITY 262 ug/dL (250-450); UIBC 227 ug/dL (118-369)
[2017-03-27] MEDS: ALBUTEROL SO4 2.5/IPRATROPIUM 0.5 INH SOL 3 ML VIAL.NEB. NEB SCH ×2 (08:10→11:15)
--- NOTE | 2017-03-27 09:04 | DS ---
Physical Examination Vital Signs: Vital Signs Temperature 98.4 F 03/27/17 05:32 Pulse Rate 91 H 03/27/17 05:32 Respiratory Rate 20 03/27/17 05:32 Blood Pressure 156/89 03/27/17 05:32 O2 Sat by Pulse Oximetry (%) 98 03/26/17 21:00 Labs: CBC, BMP 03/27/17 06:58 03/24/17 06:00 Discharge Summary Reason For Visit: PARESTHESIA AND PAIN OF LEFT EXTREMITY Current Active Problems Arterial occlusion, lower extremity (Acute) Dilated bile duct (Acute) Dilated pancreatic duct (Acute) Leg pain, left (Acute) Macrocytic anemia (Acute) Condition: Improved - Instructions Diet, Activity, Other Instructions: Please return to the ED with new, persistent, or worsening symptoms. Please follow-up with providers as indicated. Please start Coumadin 5mg by mouth tonight. Please have your INR rechecked tomorrow, 03/28/17 Referrals: Phil Sandoval MD [Primary Care Provider] - 1 Week Abrahan Morgan MD [Staff Physician] - (Please follow-up with Dr. Sands within 1 week for staple removal and further post-op management) Disposition: [facility] - Home Medications Comprehensive Discharge Medication List: Ambulatory Orders Bromfenac Sodium 1.7 ml OS DAILY 02/19/17 Gabapentin 600 mg PO QID 02/19/17 Montelukast Na [Singulair -] 10 mg PO HS 02/19/17 Ofloxacin 0.3% Ophth Soln [Ocuflox -] 1 drop OS QID 02/19/17 Prednisolone 1% Ophthalmic [Pred Forte 1% -] 1 drop OS QID 02/19/17 Simvastatin 40 mg PO HS 02/19/17 Verapamil HCl ER [Calan Sr -] 180 mg PO DAILY 02/19/17 Lisinopril [Prinivil] 20 mg PO DAILY #30 tablet 02/28/17 Nicotine Patch [Nicoderm Patch -] 1 patch TD DAILY #30 patch 02/28/17 Pantoprazole Sodium [Protonix -] 40 mg PO DAILY #30 tablet.ec 02/28/17 Tiotropium [place] [Spiriva] 1 puff IH DAILY #1 inh 02/28/17 Albuterol 0.083% Nebulizer [place] [Ventolin 0.083% Nebulizer Soln -] 1 amp NEB Q4H PRN amp 03/27/17 Albuterol 2.5/Ipratropium 0.5 [Duoneb -] 1 amp NEB RQID amp 03/27/17 Alprazolam [Xanax] 0.25 mg PO Q8H PRN tablet MDD 1mg 03/27/17 Aspirin Coated [Ecotrin -] 81 mg PO DAILY tablet.ec 03/27/17 Clopidogrel Bisulfate [Plavix -] 75 mg PO DAILY tablet 03/27/17 Oxycodone HCl [Roxicodone -] 5 mg PO Q6H PRN tablet MDD 20mg 03/27/17 Warfarin Na [Coumadin -] 5 mg PO DAILY@1800 tablet 03/27/17
[2017-03-27] MEDS ORDERED: PT OWN MED DRAWER 7, Y5N ONE (09:24)
[2017-03-27] MEDS: VERAPAMIL HCL 180 MG E.R. TABLET (FP) PO SCH (09:47)
[2017-03-27] MEDS: NICOTINE 21 MG/24 HOURS TOPICAL PATCH TD SCH (09:47)
[2017-03-27] MEDS: PANTOPRAZOLE 40 MG TABLET (FP) PO SCH (09:48)
[2017-03-27] MEDS: LISINOPRIL 20 MG TABLET (FP) PO SCH (09:48)
[2017-03-27] MEDS: OFLOXACIN 0.3% OPHTHALMIC SOLUTION 5 ML BOTTLE OS SCH (09:48)
[2017-03-27] MEDS: prednisoLONE ACETATE 1% OPHTH SUSP 5 ML BOTTLE OS SCH (09:48)
[2017-03-27] MEDS ORDERED: CLOPIDOGREL BISULFATE 75 MG TABLET (FP) PO SCH (10:00)
[2017-03-27] MEDS ORDERED: ASPIRIN COATED 81 MG TABLET.EC PO SCH (10:00)
[2017-03-27 11:32] VITALS: BP 156/78; PULSE 95; TEMP 98
--- NOTE | 2017-03-27 11:56 | PN ---
Progress Note (short form) - Note Progress Note: Breathing feels OK. No CP or SOB. Intake & Output 03/24/17 03/25/17 03/26/17 03/27/17 23:59 23:59 23:59 23:59 Intake Total 293 665 6157 150 Balance 966 681 8039 150 Last Vital Signs Temp Pulse Resp BP Pulse Ox 98.0 F 95 H 20 156/78 98 03/27/17 10:00 03/27/17 10:00 03/27/17 10:00 03/27/17 10:00 03/26/17 21:00 Active Medications Acetaminophen (Tylenol -) 650 mg PO Q6H PRN PRN Reason: MILD PAIN Last Admin: 03/24/17 21:32 Dose: 650 mg Albuterol Sulfate (Ventolin 0.083% Nebulizer Soln -) 1 amp NEB Q4H PRN PRN Reason: SHORT OF BREATH/WHEEZING Last Admin: 03/25/17 02:26 Dose: 1 amp Albuterol/Ipratropium (Duoneb -) 1 amp NEB RQID [facility] Last Admin: 03/27/17 08:10 Dose: 1 amp Aspirin (Ecotrin -) 81 mg PO DAILY [facility] Last Admin: 03/27/17 09:48 Dose: 81 mg Atorvastatin Calcium (Lipitor -) 20 mg PO [facility] Last Admin: 03/26/17 21:18 Dose: 20 mg Clopidogrel Bisulfate (Plavix -) 75 mg PO DAILY [facility] Last Admin: 03/27/17 09:48 Dose: 75 mg Lisinopril (Prinivil) 20 mg PO DAILY [facility] Last Admin: 03/27/17 09:48 Dose: 20 mg Montelukast Sodium (Singulair -) 10 mg PO HS [facility] Last Admin: 03/26/17 21:17 Dose: 10 mg Nicotine (Nicoderm Patch -) 21 mg TD DAILY [facility] Last Admin: 03/27/17 09:47 Dose: 21 mg Ofloxacin (Ocuflox 0.3% Eye Drops -) 1 drop OS DAILY [facility] Last Admin: 03/27/17 09:48 Dose: Not Given Pantoprazole Sodium (Protonix -) 40 mg PO DAILY [facility] Last Admin: 03/27/17 09:48 Dose: 40 mg Prednisolone Acetate (Pred Forte 1% -) 1 drop OS DAILY [facility] Last Admin: 03/27/17 09:48 Dose: Not Given Verapamil HCl (Calan Sr -) 180 mg PO DAILY [facility] Last Admin: 03/27/17 09:47 Dose: 180 mg Warfarin Sodium (Coumadin -) 5 mg PO DAILY@1800 [facility] Last Admin: 03/23/17 17:50 Dose: 5 mg Gen: NAD Heart: S1S2 Lung: Scattered rhonchi/rales, no wheezes Abd: soft, nontender Ext: no edema, incisions slight serous drainage/clean Laboratory Results - last 24 hr 03/25/17 03/26/17 03/27/17 06:30 16:05 06:58 WBC RBC Hgb Hct MCV MCH MCHC RDW Plt Count MPV PT with INR 40.20 H 24.50 H INR 3.56 H 2.17 H D Iron 35 TIBC 262 Iron Saturation 13 L 03/27/17 06:58 WBC 8.8 RBC 2.91 L Hgb 10.2 L Hct 30.9 L MCV 106.4 H MCH 35.0 H MCHC 32.9 RDW 16.2 H Plt Count 374 MPV 7.9 PT with INR INR Iron TIBC Iron Saturation ASSESSMENT AND PLAN: Occlusion of Left Femoral/Popliteal Arteries s/p Left Femoral/Popliteal Thrombectomy/Popliteal Anterior Tibial Bypass PAD CAD s/p stent Acute Kidney Injury COPD HTN Hyperlipidemia Smoker - Monitor off steroids - BD TX - O2 to keep SpO2 >90% - plavix - pain control - incentive spirometry - smoking cessation - D/C planning Dr Chacon
== END 2017-03-27 13:52 | DRG 253 ==
LOC: JER 08:51 → JERBED 11:58 → J5S 16:37 → JICU 21:18 → J7W 03-23 17:59
PROVIDERS: ADMIT Internal Medicine; ATTEND Registered Nurse
PROC: 04CN0ZZ Extirpation of Matter from Left Popliteal Artery, Open Approach (ICD-10-PCS; 2017-03-20)
PROC: 041N09Q Bypass Left Popliteal Artery to Lower Extremity Artery with Autologous Venous Tissue, Open Approach (ICD-10-PCS; 2017-03-20)
PROC: 06BQ0ZZ Excision of Left Saphenous Vein, Open Approach (ICD-10-PCS; 2017-03-20)
PROC: B41GYZZ Fluoroscopy of Left Lower Extremity Arteries using Other Contrast (ICD-10-PCS; 2017-03-20)
PROC: 04CL0ZZ Extirpation of Matter from Left Femoral Artery, Open Approach (ICD-10-PCS; principal; 2017-03-20 19:35)
DX: I70.202 Unspecified atherosclerosis of native arteries of extremities, left leg (principal); I74.3 Embolism and thrombosis of arteries of the lower extremities; N17.9 Acute kidney failure, unspecified; D62 Acute posthemorrhagic anemia; J44.9 Chronic obstructive pulmonary disease, unspecified; Z87.891 Personal history of nicotine dependence; I25.10 Atherosclerotic heart disease of native coronary artery without angina pectoris; I10 Essential (primary) hypertension; E78.5 Hyperlipidemia, unspecified; M79.81 Nontraumatic hematoma of soft tissue; E87.6 Hypokalemia; G62.9 Polyneuropathy, unspecified; E83.42 Hypomagnesemia; K83.8 Other specified diseases of biliary tract; N28.1 Cyst of kidney, acquired; N32.89 Other specified disorders of bladder; K86.89 Other specified diseases of pancreas; R09.89 Other specified symptoms and signs involving the circulatory and respiratory systems
CPT/HCPCS: 36415; 71045-TC; 74176-TC; 75635-TC; 76000-TC; 76705-TC; 76775-TC; 80048; 80053; 80076; 81003; 81015; 82550; 82553; 82607; 82728; 82746; 83540; 83550; 83690; 83735; 84100; 85025; 85027; 85610; 85730; 86850; 86900; 86901; 88302-TC; 93005; 93010; 94010; 94640; 94760; 97116-GP; 97161-GP; 99284-25

== ENCOUNTER 2017-05-29 08:59 | Inpatient (IN) | payer OTHER, BC ==
--- NOTE | 2017-05-29 09:56 | PDOC ---
*Physical Exam - Vital Signs Last Vital Signs Temp Pulse Resp BP Pulse Ox 99 F 94 H 18 102/57 99 05/29/17 09:05 05/29/17 09:05 05/29/17 09:05 05/29/17 09:05 05/29/17 09:05 ED Treatment Course - LABORATORY CBC & Chemistry Diagram: 05/29/17 10:04 05/29/17 10:00 Medical Decision Making - Medical Decision Making 05/29/17 10:40 The patient was seen and evaluated in conjunction with JOE Monzon under my direct supervision, ancillary studies were reviewed. I independently interviewed and evaluated the patient and I agree with the plan as outlined by JOE Monzon . *DC/Admit/Observation/Transfer Diagnosis at time of Disposition: UTI (urinary tract infection) with pyuria, Failure of outpatient treatment - Referrals - Patient Instructions - Post Discharge Activity
[2017-05-29 10:13] LABS: BASO % 1.1 % (0-2.0); EOS % 1.9 % (0-4.5); HEMATOCRIT 31.9 % (32.4-45.2); HEMOGLOBIN 10.5 GM/dL (10.7-15.3); LYMPH % 13.9 % (8-40); MCH 30.5 pg (25.7-33.7); MCHC 32.9 g/dl (32.0-36.0); MEAN CELL VOLUME 92.7 fl (80-96); MEAN PLT VOLUME 7.9 fl (7.5-11.1); MONO % 9.5 % (3.8-10.2); NEUT % 73.6 % (42.8-82.8); PLATELET COUNT 482 K/MM3 (134-434); RBC 3.44 M/mm3 (3.60-5.2); RDW 19.7 % (11.6-15.6); WHITE BLOOD COUNT 10.8 K/mm3 (4.0-10.0)
[2017-05-29] MEDS ORDERED: CEFTRIAXONE 1 GM in DEXTROSE 5%-WATER - 50 ML IVPB ONE (10:14)
[2017-05-29] MEDS ORDERED: SODIUM CHLORIDE 1,000 ML IV STA (10:14)
[2017-05-29] MEDS ORDERED: CEFTRIAXONE 1 GM/50 ML BAG ONE (10:21)
[2017-05-29 10:41] LABS: PROTHROMBIN TIME (PATIENT) 50.1 SEC (9.98-11.88)
[2017-05-29 10:44] LABS: ALBUMIN 2.8 g/dl (3.4-5.0); ANION GAP 15 (8-16); BILIRUBIN,TOTAL 0.4 mg/dL (0.2-1.0); BLOOD UREA NITROGEN 41 mg/dL (7-18); CALCIUM 9.2 mg/dL (8.5-10.1); CHLORIDE 99 mmol/L (98-107); CO2 21 mmol/L (21-32); CREATININE 2.1 mg/dL (0.55-1.02); GLUCOSE,RANDOM 87 mg/dL (74-106); POTASSIUM 4.7 mmol/L (3.5-5.1); SGOT/AST 24 U/L (15-37); SGPT/ALT 30 U/L (12-78); SODIUM 135 mmol/L (136-145); TOT PROT 7.1 g/dl (6.4-8.2)
[2017-05-29 10:45] LABS: ALK PHOS 89 U/L (45-117)
[2017-05-29 10:48] LABS: URINE APPEARANCE TURBID; URINE BILIRUBIN NEGATIVE (<2.0 mg/dL); URINE BLOOD 1+ (NEGATIVE); URINE COLOR YELLOW; URINE GLUCOSE (UA) NEGATIVE (NEGATIVE); URINE KETONE NEGATIVE (NEGATIVE); URINE NITRITE NEGATIVE (NEGATIVE)
[2017-05-29 10:54] LABS: URINE LEUK ESTERASE 1+ (NEGATIVE); URINE PROTEIN 2+ (NEGATIVE)
[2017-05-29 11:21] LABS: INR 4.43 (0.82-1.09)
[2017-05-29 11:36] LABS: URINE BACTERIA FEW /hpf (NONE SEEN)
--- NOTE | 2017-05-29 12:25 | PDOC ---
History of Present Illness - General Chief Complaint: Urinary Problem Stated Complaint: UTI Time Seen by Provider: 05/29/17 09:26 History Source: Patient Exam Limitations: No Limitations - History of Present Illness Initial Comments: 05/29/17 12:48 66-year-old female presents to the ED with complaints of suprapubic pain along with urinary frequency and incontinence for the past 2 days. Patient states completed Bactrim for UTI she was recently diagnosed with from an urgent care clinic. Patient had dysuria and frequency approximately 2 weeks ago and went to local urgent care clinic but was unable to give urine. Patient states was treated based on her symptoms and took the medication as prescribed. Patient denies nausea, fever, chills but states pain is now radiating to her left flank and left back. Timing/Duration: reports: getting worse Quality: reports: mild, cramping Abdominal Pain Onset Location: reports: suprapubic Pain Radiation: reports: flank, back (left side) Aggravating Factors: improves with: None Alleviating Factors: improves with: None Past History - Travel Traveled outside of the country in the last 30 days: No - Past Medical History Allergies/Adverse Reactions: Allergies Allergy/AdvReac Type Severity Reaction Status Date / Time No Known Allergies Allergy Verified 05/29/17 09:10 Home Medications: Ambulatory Orders Gabapentin 600 mg PO QID 02/19/17 Montelukast Na [Singulair -] 10 mg PO HS 02/19/17 Simvastatin 40 mg PO HS 02/19/17 Verapamil HCl ER [Calan Sr -] 180 mg PO DAILY 02/19/17 Lisinopril [Prinivil] 20 mg PO DAILY #30 tablet 02/28/17 Nicotine Patch [Nicoderm Patch -] 1 patch TD DAILY #30 patch 02/28/17 Pantoprazole Sodium [Protonix -] 40 mg PO DAILY #30 tablet.ec 02/28/17 Tiotropium [place] [Spiriva] 1 puff IH DAILY #1 inh 02/28/17 Aspirin Coated [Ecotrin -] 81 mg PO DAILY tablet.ec 03/27/17 Warfarin Na [Coumadin -] 2.5 mg PO DAILY@1800 05/29/17 Anemia: No Asthma: No Cancer: No Cardiac Disorders: Yes (mi'08 STENT) CVA: No COPD: Yes Dementia: No Diabetes: No GI Disorders: Yes (REFLUX) Disorders: No HTN: Yes Hypercholesterolemia: Yes Liver Disease: No Seizures: No Thyroid Disease: No - Surgical History Cardiac Surgery: (STENT 2007) Orthopedic Surgery: Yes (LEFT TKR ~2010) - Suicide/Smoking/Psychosocial Hx Smoking History: Former smoker Have you smoked in the past 12 months: Yes Number of Cigarettes Smoked Daily: 2 If you are a former smoker, when did you quit?: 2 months Information on smoking cessation initiated: No 'Breaking Loose' booklet given: 02/19/17 Hx Alcohol Use: Yes (SOCIAL) Drug/Substance Use Hx: No Substance Use Type: None Hx Substance Use Treatment: No Patient Lives Alone: No Lives with/in: daughter Review of Systems - Review of Systems Able to Perform ROS?: Yes Constitutional: No: Symptoms Reported HEENTM: No: Symptoms Reported Respiratory: No: Symptoms reported Cardiac (ROS): No: Symptoms Reported ABD/GI: Yes: Abdominal cramping : Yes: Dysuria, Frequency, Flank Pain, Incontinence Integumentary: No: Symptoms Reported Neurological: No: Symptoms reported *Physical Exam - Vital Signs Last Vital Signs Temp Pulse Resp BP Pulse Ox 99 F 94 H 18 102/57 99 05/29/17 09:05 05/29/17 09:05 05/29/17 09:05 05/29/17 09:05 05/29/17 09:05 - Physical Exam General Appearance: Yes: Nourished, Appropriately Dressed. No: Apparent Distress HEENT: negative: Pale Conjunctivae Respiratory/Chest: positive: Lungs Clear, Normal Breath Sounds. negative: Respiratory Distress, Accessory Muscle Use Cardiovascular: positive: Regular Rhythm, Regular Rate. negative: Murmur Gastrointestinal/Abdominal: positive: Normal Bowel Sounds, Soft, Tenderness ( midsuprapubic). negative: Distended Musculoskeletal: positive: CVA Tenderness (L) (mild) Extremity: negative: Pedal Edema Integumentary: positive: Normal Color, Warm, Moist Neurologic: positive: Motor Strength 5/5 (ambulatory with cane) ED Treatment Course - LABORATORY CBC & Chemistry Diagram: 05/30/17 06:30 05/30/17 06:30 - ADDITIONAL ORDERS Additional order review: Laboratory Results 05/29/17 05/29/17 05/29/17 10:37 10:18 10:00 PT with INR 50.10 H INR 4.43 H* D Sodium 135 L Potassium 4.7 Chloride 99 Carbon Dioxide 21 Anion Gap 15 BUN 41 H Creatinine 2.1 H Creat Clearance w eGFR 23.42 Random Glucose 87 Calcium 9.2 Total Bilirubin 0.4 AST 24 ALT 30 Alkaline Phosphatase 89 Total Protein 7.1 Albumin 2.8 L Urine Color Yellow Urine Appearance Turbid Urine pH 5.0 Ur Specific [place] 1.014 Urine Protein 2+ H Urine Glucose (UA) Negative Urine Ketones Negative Urine Blood 1+ H Urine Nitrite Negative Urine Bilirubin Negative Urine Urobilinogen 2.0 H Ur Leukocyte Esterase 1+ H 05/29/17 10:04 RBC 3.44 L MCV 92.7 D MCHC 32.9 RDW 19.7 H D MPV 7.9 Neutrophils % 73.6 Lymphocytes % 13.9 D Monocytes % 9.5 Eosinophils % 1.9 D Basophils % 1.1 D - RADIOLOGY Radiology Studies Ordered: Category Date Time Status KIDNEY / RENAL US [US] Stat Ultrasound 05/29/17 10:14 Ordered PELVIC / BLADDER US [US] Stat Ultrasound 05/29/17 10:14 Ordered - Medications Given in the ED: ED Medications Discontinued Medications Generic Name Dose Route Start Last Admin Trade Name Freq PRN Reason Stop Dose Admin Ceftriaxone Sodium 1 gm/ 50 mls @ 100 mls/hr 05/29/17 10:14 05/29/17 11:07 Dextrose IVPB 05/29/17 10:43 100 mls/hr ONCE ONE Administration Sodium Chloride 1,000 mls @ 1,000 mls/hr 05/29/17 10:14 05/29/17 11:07 Normal Saline - IV 05/29/17 11:13 1,000 mls/hr ASDIR STA Administration Medical Decision Making - Medical Decision Making 05/29/17 11:36 Patient with urinary incontinence along with suprapubic pain for the past 2 days despite completing Bactrim for recent diagnosis of UTI. Patient exam had left CVA and mid suprapubic pain. Differential diagnosis: UTI, pyelonephritis, renal colic, acute renal failure. Ordered labs, IV fluids, ultrasound of her kidney and pelvis region. Patient also ordered for ceftriaxone IV 05/29/17 12:52 Ultrasound shows a cyst in the right lower pole measuring 2.5 cm. There are also several small nonobstructing calculi in the left kidney. There is no focal solid renal mass. There is no hydronephrosis, perinephric fluid and kidneys are normal in echotexture. Microblog sent to hospitalist for admission. 05/29/17 12:52 05/29/17 12:56 Laboratory Tests 05/29/17 05/29/17 05/29/17 10:00 10:04 10:18 WBC 10.8 H Hgb 10.5 L Hct 31.9 L RDW 19.7 H D Plt Count 482 H D Neutrophils % 73.6 PT with INR 50.10 H INR 4.43 H* D Sodium 135 L Potassium 4.7 Chloride 99 Carbon Dioxide 21 Anion Gap 15 BUN 41 H Creatinine 2.1 H Random Glucose 87 Calcium 9.2 Total Bilirubin 0.4 AST 24 ALT 30 Alkaline Phosphatase 89 Total Protein 7.1 Albumin 2.8 L Urine Appearance Urine Protein Urine Blood Urine Nitrite Urine Bilirubin Urine Urobilinogen Ur Leukocyte Esterase Urine WBC (Auto) Urine RBC (Auto) Urine Bacteria 05/29/17 10:37 WBC Hgb Hct RDW Plt Count Neutrophils % PT with INR INR Sodium Potassium Chloride Carbon Dioxide Anion Gap BUN Creatinine Random Glucose Calcium Total Bilirubin AST ALT Alkaline Phosphatase Total Protein Albumin Urine Appearance Turbid Urine Protein 2+ H Urine Blood 1+ H Urine Nitrite Negative Urine Bilirubin Negative Urine Urobilinogen 2.0 H Ur Leukocyte Esterase 1+ H Urine WBC (Auto) 3530 Urine RBC (Auto) None Urine Bacteria Few Patient currently on Coumadin. 05/29/17 14:11 Case discussed with JOE Guerra and will admit to med observation status *DC/Admit/Observation/Transfer Diagnosis at time of Disposition: UTI (urinary tract infection) with pyuria, Failure of outpatient treatment - Discharge Dispostion Admit: Yes - Referrals - Patient Instructions - Post Discharge Activity
--- NOTE | 2017-05-29 14:27 | HP ---
CHIEF COMPLAINT: Dysuria, foul-smelling urine PCP: HISTORY OF PRESENT ILLNESS: 66 year-old female with a PMH significant for HTN, HLD, CAD s/p stent, COPD, and peripheral arterial disease. Presented to the ED with complaints of suprapubic and right flank pain, dysuria, frequency, urinary incontinence and foul-smelling urine x 2 days. Her symptoms first presented two weeks ago. She went to an urgent care clinic and was prescribed Bactrim. She completed the course and her symptoms resolved while on the antibiotics. The symptoms returned two days ago. Patient denies fever, sweats, chills, nausea, vomiting, diarrhea. ER course was notable for: (1) Afebrile, vital signs stable (2) INR 4.43 (3) UA: 3530 WBCs (4) Ceftriaxone x 1; NS x 1L Recent Travel: No PAST MEDICAL HISTORY: Hypertension Hyperlipidemia Coronary artery disease Peripheral arterial disease COPD Common bile duct dilitation PAST SURGICAL HISTORY: Coronary artery stents Bilateral femoral artery stents Left femoral and popliteal thrombectomy and bypass (03/2017, Eddie) Social History: Smoking: Alcohol: Drugs: Family History: Allergies No Known Allergies Allergy (Verified 05/29/17 09:10) HOME MEDICATIONS: Home Medications Medication Instructions Recorded Gabapentin 600 mg PO QID 02/19/17 Montelukast Na [Singulair -] 10 mg PO HS 02/19/17 Simvastatin 40 mg PO HS 02/19/17 Verapamil HCl ER [Calan Sr -] 180 mg PO DAILY 02/19/17 Lisinopril [Prinivil] 20 mg PO DAILY #30 tablet 02/28/17 Nicotine Patch [Nicoderm Patch -] 1 patch TD DAILY #30 patch 02/28/17 Pantoprazole Sodium [Protonix -] 40 mg PO DAILY #30 tablet.ec 02/28/17 Tiotropium [place] [Spiriva] 1 puff IH DAILY #1 inh 02/28/17 Aspirin Coated [Ecotrin -] 81 mg PO DAILY tablet.ec 03/27/17 Warfarin Na [Coumadin -] 2.5 mg PO DAILY@1800 05/29/17 REVIEW OF SYSTEMS CONSTITUTIONAL: Absent: fever, chills, diaphoresis, generalized weakness, malaise, loss of appetite, weight change HEENT: Absent: rhinorrhea, nasal congestion, throat pain, throat swelling, difficulty swallowing, mouth swelling, ear pain, eye pain, visual changes CARDIOVASCULAR: Absent: chest pain, syncope, palpitations, irregular heart rate, lightheadedness , peripheral edema RESPIRATORY: Absent: cough, shortness of breath, dyspnea with exertion, orthopnea, wheezing, stridor, hemoptysis GASTROINTESTINAL: Absent: abdominal pain, abdominal distension, nausea, vomiting, diarrhea, constipation, melena, hematochezia GENITOURINARY: +dysuria, frequency, urgency, foul-smelling urine, suprapubic pain, flank pain Absent: hematuria, flank pain, genital pain MUSCULOSKELETAL: Absent: myalgia, arthralgia, joint swelling, back pain, neck pain SKIN: Absent: rash, itching, pallor HEMATOLOGIC/IMMUNOLOGIC: Absent: easy bleeding, easy bruising, lymphadenopathy, frequent infections ENDOCRINE: Absent: unexplained weight gain, unexplained weight loss, heat intolerance, cold intolerance NEUROLOGIC: Absent: headache, focal weakness or paresthesias, dizziness, unsteady gait, seizure, mental status changes, bladder or bowel incontinence PSYCHIATRIC: Absent: anxiety, depression, suicidal or homicidal ideation, hallucinations. PHYSICAL EXAMINATION Vital Signs - 24 hr 05/29/17 05/29/17 05/29/17 09:05 12:55 14:13 Temperature 99 F 98.4 F 97.8 F Pulse Rate 94 H Pulse Rate [ 72 Left Radial] Respiratory 18 18 Rate Blood Pressure 102/57 Blood Pressure 105/46 [Right Arm] O2 Sat by Pulse 99 96 Oximetry (%) GENERAL: Awake, alert, and fully oriented, in no acute distress. HEAD: Normal with no signs of trauma. EYES: Pupils equal, round and reactive to light, extraocular movements intact, sclera anicteric, conjunctiva clear. No lid lag. EARS, NOSE, THROAT: Ears normal, nares patent, oropharynx clear without exudates. Moist mucous membranes. NECK: Normal range of motion, supple without lymphadenopathy, JVD, or masses. LUNGS: Breath sounds equal, clear to auscultation bilaterally. No wheezes, and no crackles. No accessory muscle use. HEART: Regular rate and rhythm, normal S1 and S2 without murmur, rub or gallop. ABDOMEN: Soft, nontender, not distended, normoactive bowel sounds, no guarding, no rebound, no masses. MUSCULOSKELETAL: Normal range of motion at all joints. No bony deformities or tenderness. Right CVA tenderness UPPER EXTREMITIES: 2+ pulses, warm, well-perfused. No cyanosis. No clubbing. No peripheral edema. LOWER EXTREMITIES: LEFT: Long well-healed surgical scar; 2+ pulses, warm, well-perfused. No calf tenderness. No peripheral edema. RIGHT: 1+ pulses, warm, well-perfused. No calf tenderness. No peripheral edema. NEUROLOGICAL: Cranial nerves II-XII intact. Normal speech. Laboratory Results - last 24 hr 05/29/17 05/29/17 05/29/17 10:00 10:04 10:18 WBC 10.8 H RBC 3.44 L Hgb 10.5 L Hct 31.9 L MCV 92.7 D MCH 30.5 D MCHC 32.9 RDW 19.7 H D Plt Count 482 H D MPV 7.9 Neutrophils % 73.6 Lymphocytes % 13.9 D Monocytes % 9.5 Eosinophils % 1.9 D Basophils % 1.1 D PT with INR 50.10 H INR 4.43 H* D Sodium 135 L Potassium 4.7 Chloride 99 Carbon Dioxide 21 Anion Gap 15 BUN 41 H Creatinine 2.1 H Creat Clearance w eGFR 23.42 Random Glucose 87 Calcium 9.2 Total Bilirubin 0.4 AST 24 ALT 30 Alkaline Phosphatase 89 Total Protein 7.1 Albumin 2.8 L Urine Color Urine Appearance Urine pH Ur Specific [place] Urine Protein Urine Glucose (UA) Urine Ketones Urine Blood Urine Nitrite Urine Bilirubin Urine Urobilinogen Ur Leukocyte Esterase Urine WBC (Auto) Urine RBC (Auto) Urine Bacteria 05/29/17 10:37 WBC RBC Hgb Hct MCV MCH MCHC RDW Plt Count MPV Neutrophils % Lymphocytes % Monocytes % Eosinophils % Basophils % PT with INR INR Sodium Potassium Chloride Carbon Dioxide Anion Gap BUN Creatinine Creat Clearance w eGFR Random Glucose Calcium Total Bilirubin AST ALT Alkaline Phosphatase Total Protein Albumin Urine Color Yellow Urine Appearance Turbid Urine pH 5.0 Ur Specific [place] 1.014 Urine Protein 2+ H Urine Glucose (UA) Negative Urine Ketones Negative Urine Blood 1+ H Urine Nitrite Negative Urine Bilirubin Negative Urine Urobilinogen 2.0 H Ur Leukocyte Esterase 1+ H Urine WBC (Auto) 3530 Urine RBC (Auto) None Urine Bacteria Few ASSESSMENT/PLAN: 66 year-old female with a PMH significant for HTN, HLD, CAD s/p stent, COPD, and peripheral arterial disease. Admitted for pyelonephritis and DEANA. Pyelonephritis --suprapubic and flank pain --failed outpatient PO antibiotic regimen --UA with 3530 WBCs, pus in urine --continue ceftriaxone DEANA --Cr 2.1, baseline 0.7 --US KUB: non-obstructive renal calculi; no hydronephrosis --urine studies pending, calculate FeNa --gentle IV fluids Peripheral arterial disease s/p multiple stents/bypass --INR supratherapeutic @4.43 --hold coumadin --repeat INR in am --question re: Plavix; when patient was discharged in March she was on Plavix; patient states she does not think she received Plavix and the SNF she went to and has not taken Plavix since her discharge; will reach out to Dr. Morgan CAD s/p stent --continue ASA Hypertension --BP stable --continue verapamil --hold lisinopril due to DEANA Hyperlipidemia --continue Lipitor COPD --stable --continue Spiriva, singulair FEN Fluids: NS @ 50mL/hr Electrolytes: replete as indicated Nutrition: low sodium DVT prophylaxis: subq heparin Physical therapy Dispo: requires inpatient care. dFull code. Visit type - Emergency Visit Emergency Visit: Yes ED Registration Date: 05/29/17 Care time: The patient presented to the Emergency Department on the above date and was hospitalized for further evaluation of their emergent condition. - New Patient This patient is new to me today: Yes Date on this admission: 05/31/17 - Critical Care Critical Care patient: No Hospitalist Screening - Colonoscopy Questionnaire Colonoscopy Questionnaire: Colonoscopy Questionnaire - Patient: 50 - 75 years old and never had a screening colonoscopy: Unknown History of colon or rectal polyps, or CA: Unknown History of IBD, Crohn's disease or UC: Unknown History of abdominal radiation therapy as a child: Unknown - Relative: 1 with colon or rectal CA, or polyps at age 60 or younger: Unknown Colon or rectal CA diagnosed at age 45 or younger: Unknown Multiple relatives with colon or rectal CA: Unknown - Outcome: Screening Result: Negative Screen
[2017-05-29] MEDS ORDERED: SODIUM CHLORIDE 1,000 ML IV SCH (15:00)
[2017-05-29] MEDS ORDERED: PNEUMOC 13-VAL CONJ-DIP CRM/PF 0.5 ML DISP.SYRIN IM ONE (16:30)
[2017-05-29 16:32] VITALS: BMI 27.5
[2017-05-29] MEDS: SODIUM CHLORIDE 1,000 ML IV SCH (18:14)
[2017-05-29] MEDS: GABAPENTIN 300 MG CAPSULE (FP) PO SCH ×2 (18:15→21:59)
[2017-05-29] MEDS: MONTELUKAST NA 10 MG TABLET PO SCH (21:59)
[2017-05-29] MEDS: ATORVASTATIN CA 20 MG TABLET (FP) PO SCH (21:59)
[2017-05-29] MEDS ORDERED: HEPARIN NA (PORCINE) 5,000 UNITS/ML 1ML VIAL SQ SCH (22:00)
[2017-05-30 08:29] LABS: EOS % 3.8 % (0-4.5); HEMATOCRIT 27.4 % (32.4-45.2); HEMOGLOBIN 8.9 GM/dL (10.7-15.3); LYMPH % 15.8 % (8-40); MCH 30.1 pg (25.7-33.7); MCHC 32.4 g/dl (32.0-36.0); MEAN CELL VOLUME 93.1 fl (80-96); MEAN PLT VOLUME 8.2 fl (7.5-11.1); MONO % 10.9 % (3.8-10.2); NEUT % 68.5 % (42.8-82.8); PLATELET COUNT 390 K/MM3 (134-434); RBC 2.95 M/mm3 (3.60-5.2); RDW 19.8 % (11.6-15.6); WHITE BLOOD COUNT 7.6 K/mm3 (4.0-10.0)
--- NOTE | 2017-05-30 09:45 | PN ---
Physical Exam: SUBJECTIVE: Patient seen and examined. Urine re-collected for culture, white pus mixed with urine. Still with significant dysuria. OBJECTIVE: Vital Signs Period Temp Pulse Resp BP Sys/Olguin Pulse Ox Last 24 Hr 97.6 F-98.9 F 64-72 17-20 98-118/46-54 94-96 GENERAL: Awake, alert, and fully oriented, in no acute distress. LUNGS: Breath sounds equal, clear to auscultation bilaterally. No wheezes, and no crackles. No accessory muscle use. HEART: Regular rate and rhythm, normal S1 and S2 without murmur, rub or gallop. ABDOMEN: Soft, nontender, not distended, normoactive bowel sounds, no guarding, no rebound, no masses. MUSCULOSKELETAL: Normal range of motion at all joints. No bony deformities or tenderness. Right CVA tenderness UPPER EXTREMITIES: 2+ pulses, warm, well-perfused. No cyanosis. No clubbing. No peripheral edema. LOWER EXTREMITIES: LEFT: Long well-healed surgical scar; 2+ pulses, warm, well-perfused. No calf tenderness. No peripheral edema. RIGHT: 1+ pulses, warm, well-perfused. No calf tenderness. No peripheral edema. NEUROLOGICAL: Cranial nerves II-XII intact. Normal speech. Laboratory Results - last 24 hr 05/29/17 05/29/17 05/29/17 10:00 10:04 10:18 WBC 10.8 H RBC 3.44 L Hgb 10.5 L Hct 31.9 L MCV 92.7 D MCH 30.5 D MCHC 32.9 RDW 19.7 H D Plt Count 482 H D MPV 7.9 Neutrophils % 73.6 Lymphocytes % 13.9 D Monocytes % 9.5 Eosinophils % 1.9 D Basophils % 1.1 D PT with INR 50.10 H INR 4.43 H* D Sodium 135 L Potassium 4.7 Chloride 99 Carbon Dioxide 21 Anion Gap 15 BUN 41 H Creatinine 2.1 H Creat Clearance w eGFR 23.42 Random Glucose 87 Calcium 9.2 Total Bilirubin 0.4 AST 24 ALT 30 Alkaline Phosphatase 89 Total Protein 7.1 Albumin 2.8 L Urine Color Urine Appearance Urine pH Ur Specific [place] Urine Protein Urine Glucose (UA) Urine Ketones Urine Blood Urine Nitrite Urine Bilirubin Urine Urobilinogen Ur Leukocyte Esterase Urine WBC (Auto) Urine RBC (Auto) Urine Bacteria Ur Random Sodium Urine Creatinine 03/24/18 03/24/18 03/24/18 10:37 17:30 17:30 WBC RBC Hgb Hct MCV MCH MCHC RDW Plt Count MPV Neutrophils % Lymphocytes % Monocytes % Eosinophils % Basophils % PT with INR INR Sodium Potassium Chloride Carbon Dioxide Anion Gap BUN Creatinine Creat Clearance w eGFR Random Glucose Calcium Total Bilirubin AST ALT Alkaline Phosphatase Total Protein Albumin Urine Color Yellow Urine Appearance Turbid Urine pH 5.0 Ur Specific [place] 1.014 Urine Protein 2+ H Urine Glucose (UA) Negative Urine Ketones Negative Urine Blood 1+ H Urine Nitrite Negative Urine Bilirubin Negative Urine Urobilinogen 2.0 H Ur Leukocyte Esterase 1+ H Urine WBC (Auto) 3530 Urine RBC (Auto) None Urine Bacteria Few Ur Random Sodium 39 Urine Creatinine 198.0 05/30/17 06:30 WBC 7.6 RBC 2.95 L Hgb 8.9 L D Hct 27.4 L MCV 93.1 MCH 30.1 MCHC 32.4 RDW 19.8 H Plt Count 390 MPV 8.2 Neutrophils % 68.5 Lymphocytes % 15.8 Monocytes % 10.9 H Eosinophils % 3.8 D Basophils % 1.0 PT with INR INR Sodium Potassium Chloride Carbon Dioxide Anion Gap BUN Creatinine Creat Clearance w eGFR Random Glucose Calcium Total Bilirubin AST ALT Alkaline Phosphatase Total Protein Albumin Urine Color Urine Appearance Urine pH Ur Specific [place] Urine Protein Urine Glucose (UA) Urine Ketones Urine Blood Urine Nitrite Urine Bilirubin Urine Urobilinogen Ur Leukocyte Esterase Urine WBC (Auto) Urine RBC (Auto) Urine Bacteria Ur Random Sodium Urine Creatinine Active Medications Generic Name Dose Route Start Last Admin Trade Name Freq PRN Reason Stop Dose Admin Aspirin 81 mg 05/30/17 10:00 Ecotrin - PO DAILY JULIET Atorvastatin Calcium 20 mg 05/29/17 22:00 05/29/17 21:59 Lipitor - PO 20 mg HS JULIET Administration Gabapentin 600 mg 05/29/17 18:00 05/29/17 21:59 Neurontin - PO 600 mg QID JULIET Administration Ceftriaxone Sodium 1 gm/ 50 mls @ 100 mls/hr 05/30/17 10:00 Dextrose IVPB DAILY JULIET Sodium Chloride 1,000 mls @ 75 mls/hr 05/29/17 17:21 05/29/17 18:14 Normal Saline - IV 05/30/17 14:54 75 mls/hr ASDIR JULIET Administration Montelukast Sodium 10 mg 05/29/17 22:00 05/29/17 21:59 Singulair - PO 10 mg HS JULIET Administration Pantoprazole Sodium 40 mg 05/30/17 10:00 Protonix - PO DAILY JULIET Tiotropium [place] 1 puff 05/30/17 10:00 Spiriva - IH DAILY JULIET Verapamil HCl 180 mg 05/30/17 10:00 Calan Sr - PO DAILY JULIET ASSESSMENT/PLAN: 66 year-old female with a PMH significant for HTN, HLD, CAD s/p stent, COPD, and peripheral arterial disease. Admitted for pyelonephritis and DEANA. Pyelonephritis --afebrile, leukocytosis resolved --continue ceftriaxone DEANA Pre renal azotemia --Cr 2.1 on admission, 1.2 today, baseline 0.7 --US KUB: non-obstructive renal calculi; no hydronephrosis --FeNa 0.3% consistent with pre-renal azotemia Peripheral arterial disease s/p multiple stents/bypass --INR 3.04 today, hold coumadin again tonight, recheck INR in am --per Dr. Morgan, when INR is therapeutic, restart Plavix CAD s/p stent --continue ASA Hypertension --BP stable --continue verapamil --hold lisinopril due to DEANA Hyperlipidemia --continue Lipitor COPD --stable --continue Spiriva, singulair FEN Fluids: PO intake adequate Electrolytes: replete as indicated Nutrition: low sodium DVT prophylaxis: subq heparin Physical therapy Dispo: requires inpatient care. Full code. Visit type - Emergency Visit Emergency Visit: Yes ED Registration Date: 05/29/17 Care time: The patient presented to the Emergency Department on the above date and was hospitalized for further evaluation of their emergent condition. - New Patient This patient is new to me today: No - Critical Care Critical Care patient: No
[2017-05-30 11:01] LABS: CHLORIDE 106 mmol/L (98-107); POTASSIUM 4.6 mmol/L (3.5-5.1); SODIUM 137 mmol/L (136-145)
[2017-05-30 11:06] LABS: ANION GAP 10 (8-16); BLOOD UREA NITROGEN 36 mg/dL (7-18); CALCIUM 8.3 mg/dL (8.5-10.1); CO2 21 mmol/L (21-32); CREATININE 1.2 mg/dL (0.55-1.02); GLUCOSE,RANDOM 95 mg/dL (74-106); MAGNESIUM 1.7 mg/dL (1.8-2.4)
[2017-05-30] MEDS ORDERED: PT OWN MED DRAWER 7, Y5N ONE (11:15)
[2017-05-30] MEDS ORDERED: DEXTROSE 5%-WATER - 50 ML IVPB ONE (11:15)
[2017-05-30] MEDS ORDERED: cefTRIAXone SODIUM 1 GM VIAL ONE (11:15)
[2017-05-30] MEDS: CEFTRIAXONE 1 GM in DEXTROSE 5%-WATER - 50 ML IVPB SCH (11:20)
[2017-05-30] MEDS: ASPIRIN COATED 81 MG TABLET.EC PO SCH (11:22)
[2017-05-30] MEDS: GABAPENTIN 300 MG CAPSULE (FP) PO SCH ×4 (11:22→21:24)
[2017-05-30] MEDS: PANTOPRAZOLE 40 MG TABLET (FP) PO SCH (11:22)
[2017-05-30] MEDS: SODIUM CHLORIDE 1,000 ML IV SCH (11:23)
[2017-05-30 11:34] LABS: INR 3.04 (0.82-1.09); PROTHROMBIN TIME (PATIENT) 34.4 SEC (9.98-11.88)
[2017-05-30] MEDS: NICOTINE 21 MG/24 HOURS TOPICAL PATCH TD SCH (15:15)
[2017-05-30] MEDS: TIOTROPIUM BROMIDE 18 MCG CAPSULES IH SCH (15:21)
[2017-05-30] MEDS: VERAPAMIL HCL 180 MG E.R. TABLET (FP) PO SCH (15:22)
[2017-05-30] MEDS: ATORVASTATIN CA 20 MG TABLET (FP) PO SCH (21:24)
[2017-05-30] MEDS: MONTELUKAST NA 10 MG TABLET PO SCH (21:24)
[2017-05-31 08:13] LABS: BASO % 0.6 % (0-2.0); EOS % 5.5 % (0-4.5); HEMATOCRIT 26.7 % (32.4-45.2); HEMOGLOBIN 8.8 GM/dL (10.7-15.3); LYMPH % 17.1 % (8-40); MCH 30.5 pg (25.7-33.7); MCHC 32.9 g/dl (32.0-36.0); MEAN CELL VOLUME 92.8 fl (80-96); MEAN PLT VOLUME 8.2 fl (7.5-11.1); MONO % 9.2 % (3.8-10.2); NEUT % 67.6 % (42.8-82.8); PLATELET COUNT 356 K/MM3 (134-434); RBC 2.87 M/mm3 (3.60-5.2); RDW 19.5 % (11.6-15.6); WHITE BLOOD COUNT 8.1 K/mm3 (4.0-10.0)
[2017-05-31 08:31] LABS: INR 1.73 (0.82-1.09); PROTHROMBIN TIME (PATIENT) 19.6 SEC (9.98-11.88)
--- NOTE | 2017-05-31 09:01 | PN ---
Progress Note (short form) - Note Progress Note: Subjective: The patient was seen and examined at the bedside, she reports she is still experiencing urgency and urinary incontinence. She states her back pain has improved slightly. Current Medications Generic Name Dose Route Start Last Admin Trade Name Yumkio PRN Reason Stop Dose Admin Aspirin 81 mg 05/30/17 10:00 05/30/17 11:22 Ecotrin - PO 81 mg DAILY JULIET Administration Atorvastatin Calcium 20 mg 05/29/17 22:00 05/30/17 21:24 Lipitor - PO 20 mg HS JULIET Administration Clopidogrel Bisulfate 75 mg 05/31/17 10:00 Plavix - PO DAILY JULIET Gabapentin 600 mg 05/29/17 18:00 05/30/17 21:24 Neurontin - PO 600 mg QID JULIET Administration Ceftriaxone Sodium 1 gm/ 50 mls @ 100 mls/hr 05/30/17 10:00 05/30/17 11:20 Dextrose IVPB 100 mls/hr DAILY JULIET Administration Montelukast Sodium 10 mg 05/29/17 22:00 05/30/17 21:24 Singulair - PO 10 mg HS JULIET Administration Nicotine 21 mg 05/30/17 14:00 05/30/17 15:15 Nicoderm Patch - TD 21 mg DAILY JULIET Administration Pantoprazole Sodium 40 mg 05/30/17 10:00 05/30/17 11:22 Protonix - PO 40 mg DAILY JULIET Administration Tiotropium [place] 1 puff 05/30/17 10:00 05/30/17 15:21 Spiriva - IH 1 inh DAILY JULIET Administration Verapamil HCl 180 mg 05/30/17 10:00 05/30/17 15:22 Calan Sr - PO 180 mg DAILY JULIET Administration Warfarin Sodium 2.5 mg 05/31/17 18:00 Coumadin - PO DAILY@1800 JULIET Objective: Vital Signs Period Temp Pulse Resp BP Sys/Olguin Pulse Ox Last 24 Hr 97.7 F-98.6 F 66-81 18-20 108-141/41-60 94-95 Physical Exam: General: NAD, A&Ox3 Lungs: CTA bilaterally Heart: RRR, S1S2 Abd: Soft, non-tender, non-distended. Left CVA tenderness Ext: Warm, well-perfused. Right foot 1+, Left foot 2+ DP/PT. Neuro: CN 2-12 intact CBCD WBC 8.1 K/mm3 (4.0-10.0) 05/31/17 07:00 RBC 2.87 M/mm3 (3.60-5.2) L 05/31/17 07:00 Hgb 8.8 GM/dL (10.7-15.3) L 05/31/17 07:00 Hct 26.7 % (32.4-45.2) L 05/31/17 07:00 MCV 92.8 fl (80-96) 05/31/17 07:00 MCHC 32.9 g/dl (32.0-36.0) 05/31/17 07:00 RDW 19.5 % (11.6-15.6) H 05/31/17 07:00 Plt Count 356 K/MM3 (134-434) 05/31/17 07:00 MPV 8.2 fl (7.5-11.1) 05/31/17 07:00 CMP Sodium 137 mmol/L (136-145) 05/30/17 06:30 Potassium 4.6 mmol/L (3.5-5.1) 05/30/17 06:30 Chloride 106 mmol/L (98-107) 05/30/17 06:30 Carbon Dioxide 21 mmol/L (21-32) 05/30/17 06:30 Anion Gap 10 (8-16) 05/30/17 06:30 BUN 36 mg/dL (7-18) H 05/30/17 06:30 Creatinine 1.2 mg/dL (0.55-1.02) H 05/30/17 06:30 Creat Clearance w eGFR 23.42 (>60) 05/29/17 10:00 Random Glucose 95 mg/dL (74-106) 05/30/17 06:30 Calcium 8.3 mg/dL (8.5-10.1) L 05/30/17 06:30 Total Bilirubin 0.4 mg/dL (0.2-1.0) 05/29/17 10:00 AST 24 U/L (15-37) 05/29/17 10:00 ALT 30 U/L (12-78) 05/29/17 10:00 Alkaline Phosphatase 89 U/L (45-117) 05/29/17 10:00 Total Protein 7.1 g/dl (6.4-8.2) 05/29/17 10:00 Albumin 2.8 g/dl (3.4-5.0) L 05/29/17 10:00 Microbiology 05/29/17 16:15 Blood - Peripheral Venous Blood Culture - Preliminary NO GROWTH OBTAINED AFTER 24 HOURS, INCUBATION TO CONTINUE FOR 4 DAYS. 05/29/17 16:10 Blood - Peripheral Venous Blood Culture - Preliminary NO GROWTH OBTAINED AFTER 24 HOURS, INCUBATION TO CONTINUE FOR 4 DAYS. 05/29/17 10:37 Urine - Urine Clean Catch Urine Culture - Final Contaminated: Please Repeat Assessment: This is a 66 year old female with PMHx of HTN, hyperlipidemia, CAD s /p stenting, COPD, peripheral arterial disease, who presented to the ED with suprapubic and right flank pain, dysuria, frequency, urinary incontinence and foul-smelling urine x 2 days Plan: 1) Acute pyelonephritis - Symptoms improving slightly - Afebrile, WBC wnl - Continue Ceftriaxone (05/29- ) - First urine culture contaminated, f/u repeat urine culture 2) PAD, s/p multiple stents/bypass, recent 03/2017 - INR 1.73, restart Plavix and Coumadin - Start Heparin gtt until INR therapeutic - F/u vascular surgery consult 3) DEANA - Resolved - Cr 2.1->1.2->0.8 4) HTN - BP controlled - Continue to hold lisinopril 5) Hyperlipidemia - Continue Lipitor 6) COPD - Continue Spiriva - Continue Symbicort 7) F/E/N: - Monitor electrolytes - Sodium controlled diet 8) Prophylaxis: - On Heparin gtt bridge to Coumadin - PT 9) Dispo - Requires continued inpatient care CODE STATUS: FULL CODE Visit type - Emergency Visit Emergency Visit: Yes ED Registration Date: 05/31/17 Care time: The patient presented to the Emergency Department on the above date and was hospitalized for further evaluation of their emergent condition. - New Patient This patient is new to me today: Yes Date on this admission: 06/03/17 - Critical Care Critical Care patient: No
[2017-05-31 09:03] LABS: ALBUMIN 2.2 g/dl (3.4-5.0); ANION GAP 7 (8-16); BLOOD UREA NITROGEN 21 mg/dL (7-18); CALCIUM 8.3 mg/dL (8.5-10.1); CHLORIDE 112 mmol/L (98-107); CO2 22 mmol/L (21-32); CREATININE 0.8 mg/dL (0.55-1.02); GLUCOSE,RANDOM 104 mg/dL (74-106); MAGNESIUM 1.4 mg/dL (1.8-2.4); SGOT/AST 21 U/L (15-37); SGPT/ALT 22 U/L (12-78); SODIUM 141 mmol/L (136-145); TOT PROT 5.6 g/dl (6.4-8.2)
[2017-05-31 09:04] LABS: ALK PHOS 73 U/L (45-117)
[2017-05-31 09:05] LABS: BILIRUBIN,TOTAL < 0.1 mg/dL (0.2-1.0)
[2017-05-31] MEDS ORDERED: HEPARIN NA (PORCINE) 5,000 UNITS/ML 1ML VIAL IVPUSH PRN (09:19)
[2017-05-31] MEDS ORDERED: PT OWN MED DRAWER 7, Y5N ONE (09:27)
[2017-05-31] MEDS ORDERED: DEXTROSE 5%-WATER - 50 ML IVPB ONE (09:27)
[2017-05-31] MEDS ORDERED: cefTRIAXone SODIUM 1 GM VIAL ONE (09:27)
[2017-05-31] MEDS: VERAPAMIL HCL 180 MG E.R. TABLET (FP) PO SCH (09:31)
[2017-05-31] MEDS: ASPIRIN COATED 81 MG TABLET.EC PO SCH (09:34)
[2017-05-31] MEDS: GABAPENTIN 300 MG CAPSULE (FP) PO SCH ×4 (09:34→21:42)
[2017-05-31] MEDS: CLOPIDOGREL BISULFATE 75 MG TABLET (FP) PO SCH (09:35)
[2017-05-31] MEDS: PANTOPRAZOLE 40 MG TABLET (FP) PO SCH (09:35)
[2017-05-31] MEDS: CEFTRIAXONE 1 GM in DEXTROSE 5%-WATER - 50 ML IVPB SCH (09:35)
[2017-05-31] MEDS: TIOTROPIUM BROMIDE 18 MCG CAPSULES IH SCH (09:36)
[2017-05-31] MEDS: NICOTINE 21 MG/24 HOURS TOPICAL PATCH TD SCH (09:37)
[2017-05-31] MEDS: HEPARIN - 25,000 UNIT in SODIUM CHLORIDE 495 ML IV SCH (11:01)
[2017-05-31] MEDS: HEPARIN NA (PORCINE) 5,000 UNITS/ML 1ML VIAL IVPUSH PRN (17:28)
[2017-05-31] MEDS: WARFARIN NA 2.5 MG TABLET (FP) PO SCH (17:37)
[2017-05-31] MEDS ORDERED: SENNOSIDES 8.6MG TABLET (FP) PO PRN (17:45)
[2017-05-31] MEDS: POLYETHYLENE GLYCOL 3350 119 GM BTL PO SCH (18:36)
[2017-05-31] MEDS ORDERED: MAGNESIUM OXIDE 400 MG TABLET (FP) PO ONE (19:15)
[2017-05-31] MEDS: ATORVASTATIN CA 20 MG TABLET (FP) PO SCH (21:42)
[2017-05-31] MEDS: MONTELUKAST NA 10 MG TABLET PO SCH (21:42)
[2017-06-01] MEDS: DOCUSATE SODIUM 100 MG CAPSULE (FP) PO PRN ×2 (06:20→23:12)
[2017-06-01 08:27] LABS: HEMATOCRIT 29.2 % (32.4-45.2); HEMOGLOBIN 9.3 GM/dL (10.7-15.3); MCH 29.9 pg (25.7-33.7); MCHC 31.9 g/dl (32.0-36.0); MEAN CELL VOLUME 93.6 fl (80-96); MEAN PLT VOLUME 8.6 fl (7.5-11.1); PLATELET COUNT 381 K/MM3 (134-434); RBC 3.12 M/mm3 (3.60-5.2); RDW 19.4 % (11.6-15.6); WHITE BLOOD COUNT 6.9 K/mm3 (4.0-10.0)
[2017-06-01 08:57] LABS: ALBUMIN 2.4 g/dl (3.4-5.0); ANION GAP 9 (8-16); BLOOD UREA NITROGEN 14 mg/dL (7-18); CALCIUM 8.5 mg/dL (8.5-10.1); CHLORIDE 108 mmol/L (98-107); CO2 23 mmol/L (21-32); CREATININE 0.7 mg/dL (0.55-1.02); GLUCOSE,RANDOM 87 mg/dL (74-106); MAGNESIUM 1.3 mg/dL (1.8-2.4); POTASSIUM 4.4 mmol/L (3.5-5.1); SGOT/AST 21 U/L (15-37); SGPT/ALT 25 U/L (12-78); SODIUM 140 mmol/L (136-145)
[2017-06-01 09:00] LABS: ALK PHOS 79 U/L (45-117); BILIRUBIN,TOTAL 0.1 mg/dL (0.2-1.0)
--- NOTE | 2017-06-01 09:27 | PN ---
Progress Note (short form) - Note Progress Note: Subjective: The patient was seen and examined at the bedside, she denies any complaints at this time. Current Medications Generic Name Dose Route Start Last Admin Trade Name Frekavitha PRN Reason Stop Dose Admin Aspirin 81 mg 05/30/17 10:00 05/31/17 09:34 Ecotrin - PO 81 mg DAILY JULIET Administration Atorvastatin Calcium 20 mg 05/29/17 22:00 05/31/17 21:42 Lipitor - PO 20 mg HS JULIET Administration Clopidogrel Bisulfate 75 mg 05/31/17 10:00 05/31/17 09:35 Plavix - PO 75 mg DAILY JULIET Administration Docusate Sodium 100 mg 05/31/17 17:45 06/01/17 06:20 Colace - PO 100 mg Q8H PRN Administration CONSTIPATION Gabapentin 600 mg 05/29/17 18:00 05/31/17 21:42 Neurontin - PO 600 mg QID JULIET Administration Heparin Sodium (Porcine) 1,000 unit 05/31/17 09:19 Heparin - IVPUSH PRN PRN Heparin Heparin Sodium (Porcine) 5,000 unit 05/31/17 09:19 05/31/17 17:28 Heparin - IVPUSH 5,000 unit PRN PRN Administration Heparin Ceftriaxone Sodium 1 gm/ 50 mls @ 100 mls/hr 05/30/17 10:00 05/31/17 09:35 Dextrose IVPB 100 mls/hr DAILY JULIET Administration Heparin Sodium (Porcine) 25, 500 mls @ 16 mls/hr 05/31/17 09:30 06/01/17 00: 58 000 unit/ Sodium Chloride IV 900 unit/hr TITR JULIET 18 mls/hr Protocol Titration 800 UNIT/HR Lisinopril 20 mg 06/01/17 10:00 Prinivil PO DAILY JULIET Montelukast Sodium 10 mg 05/29/17 22:00 05/31/17 21:42 Singulair - PO 10 mg HS JULIET Administration Nicotine 21 mg 05/30/17 14:00 05/31/17 09:37 Nicoderm Patch - TD 21 mg DAILY JULIET Administration Pantoprazole Sodium 40 mg 05/30/17 10:00 05/31/17 09:35 Protonix - PO 40 mg DAILY JULIET Administration Polyethylene Glycol 17 gm 05/31/17 17:45 05/31/17 18:36 Miralax (For Daily Use) - PO 17 gm DAILY JULIET Administration Senna 2 tab 05/31/17 17:45 Senna - PO HS PRN CONSTIPATION Tiotropium [place] 1 puff 05/30/17 10:00 05/31/17 09:36 Spiriva - IH 1 inh DAILY JULIET Administration Verapamil HCl 180 mg 05/30/17 10:00 05/31/17 09:31 Calan Sr - PO 180 mg DAILY JULIET Administration Warfarin Sodium 2.5 mg 05/31/17 18:00 05/31/17 17:37 Coumadin - PO 2.5 mg DAILY@1800 JULIET Administration Objective: Vital Signs Period Temp Pulse Resp BP Sys/Olguin Pulse Ox Last 24 Hr 97.4 F-98.3 F 58-69 16-20 130-150/56-69 98-98 Physical Exam: General: NAD, A&Ox3 Lungs: CTA bilaterally Heart: RRR, S1S2 Abd: Soft, non-tender, non-distended. Left CVA tenderness Ext: Warm, well-perfused. Right foot 1+, Left foot 2+ DP/PT. Neuro: CN 2-12 intact CBCD WBC 6.9 K/mm3 (4.0-10.0) 06/01/17 07:00 RBC 3.12 M/mm3 (3.60-5.2) L 06/01/17 07:00 Hgb 9.3 GM/dL (10.7-15.3) L 06/01/17 07:00 Hct 29.2 % (32.4-45.2) L 06/01/17 07:00 MCV 93.6 fl (80-96) 06/01/17 07:00 MCHC 31.9 g/dl (32.0-36.0) L 06/01/17 07:00 RDW 19.4 % (11.6-15.6) H 06/01/17 07:00 Plt Count 381 K/MM3 (134-434) 06/01/17 07:00 MPV 8.6 fl (7.5-11.1) 06/01/17 07:00 CMP Sodium 140 mmol/L (136-145) 06/01/17 07:00 Potassium 4.4 mmol/L (3.5-5.1) 06/01/17 07:00 Chloride 108 mmol/L (98-107) H 06/01/17 07:00 Carbon Dioxide 23 mmol/L (21-32) 06/01/17 07:00 Anion Gap 9 (8-16) 06/01/17 07:00 BUN 14 mg/dL (7-18) 06/01/17 07:00 Creatinine 0.7 mg/dL (0.55-1.02) 06/01/17 07:00 Creat Clearance w eGFR > 60 (>60) 06/01/17 07:00 Random Glucose 87 mg/dL (74-106) 06/01/17 07:00 Calcium 8.5 mg/dL (8.5-10.1) 06/01/17 07:00 Total Bilirubin 0.1 mg/dL (0.2-1.0) L 06/01/17 07:00 AST 21 U/L (15-37) 06/01/17 07:00 ALT 25 U/L (12-78) 06/01/17 07:00 Alkaline Phosphatase 79 U/L (45-117) 06/01/17 07:00 Total Protein 6.0 g/dl (6.4-8.2) L 06/01/17 07:00 Albumin 2.4 g/dl (3.4-5.0) L 06/01/17 07:00 Microbiology 05/29/17 16:15 Blood - Peripheral Venous Blood Culture - Preliminary NO GROWTH OBTAINED AFTER 48 HOURS, INCUBATION TO CONTINUE FOR 3 DAYS. 05/29/17 16:10 Blood - Peripheral Venous Blood Culture - Preliminary NO GROWTH OBTAINED AFTER 48 HOURS, INCUBATION TO CONTINUE FOR 3 DAYS. 05/30/17 13:45 Urine - Urine - Catheterized Urine Culture - Final Yeast Like Organism 05/29/17 10:37 Urine - Urine Clean Catch Urine Culture - Final Contaminated: Please Repeat Assessment: This is a 66 year old female with PMHx of HTN, hyperlipidemia, CAD s /p stenting, COPD, peripheral arterial disease, who presented to the ED with suprapubic and right flank pain, dysuria, frequency, urinary incontinence and foul-smelling urine x 2 days Plan: 1) Acute pyelonephritis - Symptoms improving - Afebrile, WBC wnl - Continue Ceftriaxone (05/29- ) - First urine culture contaminated, f/u repeat urine culture 2) PAD, s/p multiple stents/bypass, recent 03/2017 - INR subtherapeutic - Heparin bridge to coumadin - Restarted on Plavix 05/31 - F/u vascular surgery consult 3) DEANA - Resolved 4) HTN - Restart lisinopril 5) Hyperlipidemia - Continue Lipitor 6) COPD - Continue Spiriva - Continue Symbicort 7) F/E/N: - Monitor electrolytes - Sodium controlled diet 8) Prophylaxis: - On Heparin gtt bridge to Coumadin - PT 9) Dispo - Requires continued inpatient care CODE STATUS: FULL CODE Visit type - Emergency Visit Emergency Visit: Yes ED Registration Date: 05/31/17 Care time: The patient presented to the Emergency Department on the above date and was hospitalized for further evaluation of their emergent condition. - New Patient This patient is new to me today: No - Critical Care Critical Care patient: No
[2017-06-01 09:39] LABS: INR 1.43 (0.82-1.09); PROTHROMBIN TIME (PATIENT) 16.2 SEC (9.98-11.88)
[2017-06-01] MEDS ORDERED: DEXTROSE 5%-WATER - 50 ML IVPB ONE (09:48)
[2017-06-01] MEDS ORDERED: cefTRIAXone SODIUM 1 GM VIAL ONE (09:48)
[2017-06-01] MEDS ORDERED: PT OWN MED DRAWER 7, Y5N ONE (09:48)
[2017-06-01] MEDS: VERAPAMIL HCL 180 MG E.R. TABLET (FP) PO SCH (09:50)
[2017-06-01] MEDS: POLYETHYLENE GLYCOL 3350 119 GM BTL PO SCH (09:51)
[2017-06-01] MEDS: ASPIRIN COATED 81 MG TABLET.EC PO SCH (09:51)
[2017-06-01] MEDS: CLOPIDOGREL BISULFATE 75 MG TABLET (FP) PO SCH (09:52)
[2017-06-01] MEDS: GABAPENTIN 300 MG CAPSULE (FP) PO SCH ×4 (09:52→21:21)
[2017-06-01] MEDS: LISINOPRIL 20 MG TABLET (FP) PO SCH (09:52)
[2017-06-01] MEDS: PANTOPRAZOLE 40 MG TABLET (FP) PO SCH (09:53)
[2017-06-01] MEDS: CEFTRIAXONE 1 GM in DEXTROSE 5%-WATER - 50 ML IVPB SCH (09:53)
[2017-06-01] MEDS: TIOTROPIUM BROMIDE 18 MCG CAPSULES IH SCH (09:54)
[2017-06-01] MEDS: NICOTINE 21 MG/24 HOURS TOPICAL PATCH TD SCH (09:55)
[2017-06-01] MEDS: HEPARIN - 25,000 UNIT in SODIUM CHLORIDE 495 ML IV SCH (15:40)
[2017-06-01] MEDS: WARFARIN NA 2.5 MG TABLET (FP) PO SCH (17:48)
[2017-06-01] MEDS ORDERED: MAGNESIUM OXIDE 400 MG TABLET (FP) PO ONE (20:00)
[2017-06-01] MEDS: MONTELUKAST NA 10 MG TABLET PO SCH (21:21)
[2017-06-01] MEDS: ATORVASTATIN CA 20 MG TABLET (FP) PO SCH (21:21)
[2017-06-02 07:20] LABS: INR 1.33 (0.82-1.09)
[2017-06-02 07:22] LABS: ACTIVATED PTT 31.7 SECONDS (26.9-34.4)
[2017-06-02] MEDS ORDERED: DEXTROSE 5%-WATER - 50 ML IVPB ONE (10:31)
[2017-06-02] MEDS ORDERED: cefTRIAXone SODIUM 1 GM VIAL ONE (10:31)
[2017-06-02] MEDS ORDERED: PT OWN MED DRAWER 7, Y5N ONE (10:31)
[2017-06-02] MEDS: FLUCONAZOLE 100 MG TABLET (UD) PO SCH (10:35)
[2017-06-02] MEDS: ASPIRIN COATED 81 MG TABLET.EC PO SCH (10:36)
[2017-06-02] MEDS: POLYETHYLENE GLYCOL 3350 119 GM BTL PO SCH (10:36)
[2017-06-02] MEDS: HEPARIN NA (PORCINE) 5,000 UNITS/ML 1ML VIAL IVPUSH PRN (10:36)
[2017-06-02] MEDS: VERAPAMIL HCL 180 MG E.R. TABLET (FP) PO SCH (10:36)
[2017-06-02] MEDS: PANTOPRAZOLE 40 MG TABLET (FP) PO SCH (10:37)
[2017-06-02] MEDS: CLOPIDOGREL BISULFATE 75 MG TABLET (FP) PO SCH (10:37)
[2017-06-02] MEDS: NICOTINE 21 MG/24 HOURS TOPICAL PATCH TD SCH (10:37)
[2017-06-02] MEDS: GABAPENTIN 300 MG CAPSULE (FP) PO SCH ×4 (10:37→21:14)
[2017-06-02] MEDS: LISINOPRIL 20 MG TABLET (FP) PO SCH (10:37)
[2017-06-02] MEDS: CEFTRIAXONE 1 GM in DEXTROSE 5%-WATER - 50 ML IVPB SCH (10:38)
[2017-06-02] MEDS: TIOTROPIUM BROMIDE 18 MCG CAPSULES IH SCH (10:38)
[2017-06-02] MEDS: HEPARIN - 25,000 UNIT in SODIUM CHLORIDE 495 ML IV SCH (10:38)
[2017-06-02 10:54] LABS: HEMATOCRIT 29.9 % (32.4-45.2); HEMOGLOBIN 9.7 GM/dL (10.7-15.3); MCH 30.1 pg (25.7-33.7); MCHC 32.4 g/dl (32.0-36.0); MEAN CELL VOLUME 92.9 fl (80-96); MEAN PLT VOLUME 8.5 fl (7.5-11.1); PLATELET COUNT 384 K/MM3 (134-434); RBC 3.22 M/mm3 (3.60-5.2); RDW 19.5 % (11.6-15.6); WHITE BLOOD COUNT 7.6 K/mm3 (4.0-10.0)
[2017-06-02] MEDS ORDERED: MAGNESIUM OXIDE 400 MG TABLET (FP) PO ONE ×2 (12:30→15:45)
[2017-06-02] MEDS ORDERED: CEFTRIAXONE 1 GM in DEXTROSE 5%-WATER - 50 ML IVPB SCH (14:00)
[2017-06-02] MEDS: WARFARIN NA 5 MG TABLET (UD) PO SCH (18:19)
[2017-06-02] MEDS: ATORVASTATIN CA 20 MG TABLET (FP) PO SCH (21:14)
[2017-06-02] MEDS: MONTELUKAST NA 10 MG TABLET PO SCH (21:15)
[2017-06-03] MEDS: HEPARIN - 25,000 UNIT in SODIUM CHLORIDE 495 ML IV SCH ×2 (06:41→10:40)
[2017-06-03 08:05] LABS: BASO % 0.7 % (0-2.0); EOS % 8.2 % (0-4.5); HEMATOCRIT 28.2 % (32.4-45.2); HEMOGLOBIN 9.3 GM/dL (10.7-15.3); LYMPH % 13.1 % (8-40); MCH 30.6 pg (25.7-33.7); MCHC 33.1 g/dl (32.0-36.0); MEAN CELL VOLUME 92.5 fl (80-96); MEAN PLT VOLUME 8.5 fl (7.5-11.1); MONO % 9.3 % (3.8-10.2); NEUT % 68.7 % (42.8-82.8); PLATELET COUNT 373 K/MM3 (134-434); RBC 3.04 M/mm3 (3.60-5.2); RDW 19.6 % (11.6-15.6); WHITE BLOOD COUNT 8.3 K/mm3 (4.0-10.0)
[2017-06-03 08:14] LABS: INR 1.36 (0.82-1.09); PROTHROMBIN TIME (PATIENT) 15.4 SEC (9.98-11.88)
[2017-06-03] MEDS ORDERED: DEXTROSE 5%-WATER - 50 ML IVPB ONE (10:32)
[2017-06-03] MEDS ORDERED: cefTRIAXone SODIUM 1 GM VIAL ONE (10:32)
[2017-06-03] MEDS: CLOPIDOGREL BISULFATE 75 MG TABLET (FP) PO SCH (10:39)
[2017-06-03] MEDS: VERAPAMIL HCL 180 MG E.R. TABLET (FP) PO SCH (10:39)
[2017-06-03] MEDS: GABAPENTIN 300 MG CAPSULE (FP) PO SCH ×4 (10:39→22:36)
[2017-06-03] MEDS: CEFTRIAXONE 1 GM in DEXTROSE 5%-WATER - 50 ML IVPB SCH (10:39)
[2017-06-03] MEDS: FLUCONAZOLE 100 MG TABLET (UD) PO SCH (10:39)
[2017-06-03] MEDS: ASPIRIN COATED 81 MG TABLET.EC PO SCH (10:39)
[2017-06-03] MEDS: NICOTINE 21 MG/24 HOURS TOPICAL PATCH TD SCH (10:39)
[2017-06-03] MEDS: POLYETHYLENE GLYCOL 3350 119 GM BTL PO SCH (10:39)
[2017-06-03] MEDS: TIOTROPIUM BROMIDE 18 MCG CAPSULES IH SCH (10:39)
[2017-06-03] MEDS: LISINOPRIL 20 MG TABLET (FP) PO SCH (10:39)
[2017-06-03] MEDS: PANTOPRAZOLE 40 MG TABLET (FP) PO SCH (10:39)
--- NOTE | 2017-06-03 13:46 | PN ---
Progress Note (short form) - Note Progress Note: Subjective: The patient was seen and examined at the bedside, she denies any complaints at this time. Current Medications Generic Name Dose Route Start Last Admin Trade Name Yumiko PRN Reason Stop Dose Admin Aspirin 81 mg 05/30/17 10:00 06/02/17 10:36 Ecotrin - PO 81 mg DAILY JULIET Administration Atorvastatin Calcium 20 mg 05/29/17 22:00 06/01/17 21:21 Lipitor - PO 20 mg HS JULIET Administration Clopidogrel Bisulfate 75 mg 05/31/17 10:00 06/02/17 10:37 Plavix - PO 75 mg DAILY JULIET Administration Docusate Sodium 100 mg 05/31/17 17:45 06/01/17 23:12 Colace - PO 100 mg Q8H PRN Administration CONSTIPATION Fluconazole 200 mg 06/02/17 07:45 06/02/17 10:35 Diflucan - PO 200 mg DAILY JULIET Administration Gabapentin 600 mg 05/29/17 18:00 06/02/17 10:37 Neurontin - PO 600 mg QID JULIET Administration Heparin Sodium (Porcine) 1,000 unit 05/31/17 09:19 Heparin - IVPUSH PRN PRN Heparin Heparin Sodium (Porcine) 5,000 unit 05/31/17 09:19 06/02/17 10:36 Heparin - IVPUSH 5,000 unit PRN PRN Administration Heparin Heparin Sodium (Porcine) 25, 500 mls @ 16 mls/hr 05/31/17 09:30 06/02/17 10: 38 000 unit/ Sodium Chloride IV Not Given TITR [facility] Protocol 800 UNIT/HR Lisinopril 20 mg 06/01/17 10:00 06/02/17 10:37 Prinivil PO 20 mg DAILY JULIET Administration Magnesium Oxide 400 mg 06/02/17 11:53 Mag-Ox - PO 06/02/17 11:54 ONCE ONE Montelukast Sodium 10 mg 05/29/17 22:00 06/01/17 21:21 Singulair - PO 10 mg HS JULIET Administration Nicotine 21 mg 05/30/17 14:00 06/02/17 10:37 Nicoderm Patch - TD 21 mg DAILY JULIET Administration Pantoprazole Sodium 40 mg 05/30/17 10:00 06/02/17 10:37 Protonix - PO 40 mg DAILY JULIET Administration Polyethylene Glycol 17 gm 05/31/17 17:45 03/28/18 10:36 Miralax (For Daily Use) - PO 17 gm DAILY JULIET Administration Senna 2 tab 05/31/17 17:45 06/01/17 23:12 Senna - PO 2 tab HS PRN Administration CONSTIPATION Tiotropium [place] 1 puff 05/30/17 10:00 06/02/17 10:38 Spiriva - IH 1 inh DAILY JULIET Administration Verapamil HCl 180 mg 05/30/17 10:00 06/02/17 10:36 Calan Sr - PO 180 mg DAILY UJLIET Administration Warfarin Sodium 5 mg 06/02/17 07:38 Coumadin - PO DAILY@1800 JULIET Objective: Vital Signs Period Temp Pulse Resp BP Sys/Olguin Pulse Ox Last 24 Hr 97.6 F-99.1 F 66-86 18-20 121-142/53-72 98 Physical Exam: General: NAD, A&Ox3 Lungs: CTA bilaterally Heart: RRR, S1S2 Abd: Soft, non-tender, non-distended. Left CVA tenderness Ext: Warm, well-perfused. Right foot 1+, Left foot 2+ DP/PT. Mild left foot edema, leg elevated Neuro: CN 2-12 intact CBCD WBC 7.6 K/mm3 (4.0-10.0) 06/02/17 10:20 RBC 3.22 M/mm3 (3.60-5.2) L 06/02/17 10:20 Hgb 9.7 GM/dL (10.7-15.3) L 06/02/17 10:20 Hct 29.9 % (32.4-45.2) L 06/02/17 10:20 MCV 92.9 fl (80-96) 06/02/17 10:20 MCHC 32.4 g/dl (32.0-36.0) 06/02/17 10:20 RDW 19.5 % (11.6-15.6) H 06/02/17 10:20 Plt Count 384 K/MM3 (134-434) 06/02/17 10:20 MPV 8.5 fl (7.5-11.1) 06/02/17 10:20 CMP Sodium 140 mmol/L (136-145) 06/01/17 07:00 Potassium 4.4 mmol/L (3.5-5.1) 06/01/17 07:00 Chloride 108 mmol/L (98-107) H 06/01/17 07:00 Carbon Dioxide 23 mmol/L (21-32) 06/01/17 07:00 Anion Gap 9 (8-16) 06/01/17 07:00 BUN 14 mg/dL (7-18) 06/01/17 07:00 Creatinine 0.7 mg/dL (0.55-1.02) 06/01/17 07:00 Creat Clearance w eGFR > 60 (>60) 06/01/17 07:00 Random Glucose 87 mg/dL (74-106) 06/01/17 07:00 Calcium 8.5 mg/dL (8.5-10.1) 06/01/17 07:00 Total Bilirubin 0.1 mg/dL (0.2-1.0) L 06/01/17 07:00 AST 21 U/L (15-37) 06/01/17 07:00 ALT 25 U/L (12-78) 06/01/17 07:00 Alkaline Phosphatase 79 U/L (45-117) 06/01/17 07:00 Total Protein 6.0 g/dl (6.4-8.2) L 06/01/17 07:00 Albumin 2.4 g/dl (3.4-5.0) L 06/01/17 07:00 Microbiology 05/29/17 16:15 Blood - Peripheral Venous Blood Culture - Preliminary NO GROWTH OBTAINED AFTER 72 HOURS, INCUBATION TO CONTINUE FOR 2 DAYS. 05/29/17 16:10 Blood - Peripheral Venous Blood Culture - Preliminary NO GROWTH OBTAINED AFTER 72 HOURS, INCUBATION TO CONTINUE FOR 2 DAYS. 05/30/17 13:45 Urine - Urine - Catheterized Urine Culture - Final Yeast Like Organism 05/29/17 10:37 Urine - Urine Clean Catch Urine Culture - Final Contaminated: Please Repeat Assessment: This is a 66 year old female with PMHx of HTN, hyperlipidemia, CAD s /p stenting, COPD, peripheral arterial disease, who presented to the ED with suprapubic and right flank pain, dysuria, frequency, urinary incontinence and foul-smelling urine x 2 days Plan: 1) Candiduria - Symptomatic - Continue Diflucan (06/02- ) - Continue Ceftriaxone, complete two week course 2) PAD, s/p multiple stents/bypass, recent 03/2017 - INR subtherapeutic - Heparin bridge to coumadin - Restarted on Plavix 05/31 - F/u vascular surgery consult 3) DEANA - Resolved 4) HTN - Restart lisinopril 5) Hyperlipidemia - Continue Lipitor 6) COPD - Continue Spiriva - Continue Symbicort 7) F/E/N: - Monitor electrolytes - Sodium controlled diet - Hypomagnesemia: replete 8) Prophylaxis: - On Heparin gtt bridge to Coumadin - PT 9) Dispo - Requires continued inpatient care CODE STATUS: FULL CODE Visit type - Emergency Visit Emergency Visit: Yes ED Registration Date: 05/31/17 Care time: The patient presented to the Emergency Department on the above date and was hospitalized for further evaluation of their emergent condition. - New Patient This patient is new to me today: No - Critical Care Critical Care patient: No
[2017-06-03] MEDS ORDERED: MAGNESIUM OXIDE 400 MG TABLET (FP) PO ONE (14:15)
[2017-06-03] MEDS: WARFARIN NA 5 MG TABLET (UD) PO SCH (17:46)
--- NOTE | 2017-06-03 18:18 | CONSULT ---
Consult - text type - Consultation Consultation Note: Mrs Liu recently required revascularization of the left leg with femoral stent and distal bypass. She is on Coumadin and Plavix to prevent rethrombosis of the leg. She is admitted with UTI and elevated INR. Currently the left foot is warm with palpable DP pulse. There is mild swelling in the calf and she has pain in the arch of the foot. INR now subtherapeutic. Imp: S/p left leg bypass, no issues with distal flow. She need to be on therapeutic Coumadin with INR 2-3. She should also be on either aspirin or Plavix, not both. I will see for follow-up in my office.
[2017-06-03] MEDS: MONTELUKAST NA 10 MG TABLET PO SCH (22:36)
[2017-06-03] MEDS: ATORVASTATIN CA 20 MG TABLET (FP) PO SCH (22:36)
[2017-06-04 08:30] LABS: HEMATOCRIT 27.1 % (32.4-45.2); HEMOGLOBIN 8.8 GM/dL (10.7-15.3); MCHC 32.5 g/dl (32.0-36.0); MEAN CELL VOLUME 92.5 fl (80-96); MEAN PLT VOLUME 8.7 fl (7.5-11.1); PLATELET COUNT 389 K/MM3 (134-434); RBC 2.93 M/mm3 (3.60-5.2); RDW 19.9 % (11.6-15.6); WHITE BLOOD COUNT 7.3 K/mm3 (4.0-10.0)
[2017-06-04 10:03] LABS: INR 2.01 (0.82-1.09); PROTHROMBIN TIME (PATIENT) 22.7 SEC (9.98-11.88)
[2017-06-04] MEDS ORDERED: cefTRIAXone SODIUM 1 GM VIAL ONE (10:03)
[2017-06-04] MEDS ORDERED: DEXTROSE 5%-WATER - 50 ML IVPB ONE (10:04)
[2017-06-04] MEDS: HEPARIN - 25,000 UNIT in SODIUM CHLORIDE 495 ML IV SCH (10:06)
[2017-06-04] MEDS: LISINOPRIL 20 MG TABLET (FP) PO SCH (10:09)
[2017-06-04] MEDS: PANTOPRAZOLE 40 MG TABLET (FP) PO SCH (10:09)
[2017-06-04] MEDS: NICOTINE 21 MG/24 HOURS TOPICAL PATCH TD SCH (10:09)
[2017-06-04] MEDS: GABAPENTIN 300 MG CAPSULE (FP) PO SCH ×4 (10:09→21:59)
[2017-06-04] MEDS: CLOPIDOGREL BISULFATE 75 MG TABLET (FP) PO SCH (10:09)
[2017-06-04] MEDS: CEFTRIAXONE 1 GM in DEXTROSE 5%-WATER - 50 ML IVPB SCH (10:09)
[2017-06-04] MEDS: FLUCONAZOLE 100 MG TABLET (UD) PO SCH (10:09)
[2017-06-04] MEDS: VERAPAMIL HCL 180 MG E.R. TABLET (FP) PO SCH (10:09)
[2017-06-04] MEDS: TIOTROPIUM BROMIDE 18 MCG CAPSULES IH SCH (10:10)
[2017-06-04] MEDS: POLYETHYLENE GLYCOL 3350 119 GM BTL PO SCH (10:10)
--- NOTE | 2017-06-04 12:09 | PN ---
Progress Note (short form) - Note Progress Note: Subjective: The patient was seen and examined at the bedside, she denies any complaints at this time. Current Medications Generic Name Dose Route Start Last Admin Trade Name Freq PRN Reason Stop Dose Admin Atorvastatin Calcium 20 mg 05/29/17 22:00 06/03/17 22:36 Lipitor - PO 20 mg HS JULIET Administration Clopidogrel Bisulfate 75 mg 05/31/17 10:00 06/04/17 10:09 Plavix - PO 75 mg DAILY JULIET Administration Docusate Sodium 100 mg 05/31/17 17:45 06/01/17 23:12 Colace - PO 100 mg Q8H PRN Administration CONSTIPATION Fluconazole 200 mg 06/02/17 07:45 06/04/17 10:09 Diflucan - PO 200 mg DAILY JULIET Administration Gabapentin 600 mg 05/29/17 18:00 06/04/17 10:09 Neurontin - PO 600 mg QID JULIET Administration Heparin Sodium (Porcine) 1,000 unit 05/31/17 09:19 Heparin - IVPUSH PRN PRN Heparin Heparin Sodium (Porcine) 5,000 unit 05/31/17 09:19 06/02/17 10:36 Heparin - IVPUSH 5,000 unit PRN PRN Administration Heparin Ceftriaxone Sodium 1 gm/ 50 mls @ 100 mls/hr 06/03/17 10:00 06/04/17 10:09 Dextrose IVPB 100 mls/hr DAILY JULIET Administration Lisinopril 20 mg 06/01/17 10:00 06/04/17 10:09 Prinivil PO 20 mg DAILY JULIET Administration Montelukast Sodium 10 mg 05/29/17 22:00 06/03/17 22:36 Singulair - PO 10 mg HS JULIET Administration Nicotine 21 mg 05/30/17 14:00 06/04/17 10:09 Nicoderm Patch - TD 21 mg DAILY JULIET Administration Pantoprazole Sodium 40 mg 05/30/17 10:00 06/04/17 10:09 Protonix - PO 40 mg DAILY JULIET Administration Polyethylene Glycol 17 gm 05/31/17 17:45 06/04/17 10:10 Miralax (For Daily Use) - PO Not Given DAILY JULIET Senna 2 tab 05/31/17 17:45 06/01/17 23:12 Senna - PO 2 tab HS PRN Administration CONSTIPATION Tiotropium [place] 1 puff 05/30/17 10:00 06/04/17 10:10 Spiriva - IH 1 inh DAILY JULIET Administration Verapamil HCl 180 mg 05/30/17 10:00 06/04/17 10:09 Calan Sr - PO 180 mg DAILY JULIET Administration Warfarin Sodium 5 mg 06/02/17 07:38 06/03/17 17:46 Coumadin - PO 5 mg DAILY@1800 JULIET Administration Objective: Vital Signs Period Temp Pulse Resp BP Sys/Olguin Pulse Ox Last 24 Hr 97.7 F-98.5 F 60-74 18-20 107-133/51-66 95 Physical Exam: General: NAD, A&Ox3 Lungs: CTA bilaterally Heart: RRR, S1S2 Abd: Soft, non-tender, non-distended. Left CVA tenderness Ext: Warm, well-perfused. Right foot 1+, Left foot 2+ DP/PT Neuro: CN 2-12 intact CBCD WBC 7.3 K/mm3 (4.0-10.0) 06/04/17 07:30 RBC 2.93 M/mm3 (3.60-5.2) L 06/04/17 07:30 Hgb 8.8 GM/dL (10.7-15.3) L 06/04/17 07:30 Hct 27.1 % (32.4-45.2) L 06/04/17 07:30 MCV 92.5 fl (80-96) 06/04/17 07:30 MCHC 32.5 g/dl (32.0-36.0) 06/04/17 07:30 RDW 19.9 % (11.6-15.6) H 06/04/17 07:30 Plt Count 389 K/MM3 (134-434) 06/04/17 07:30 MPV 8.7 fl (7.5-11.1) 06/04/17 07:30 CMP Sodium 140 mmol/L (136-145) 06/01/17 07:00 Potassium 4.4 mmol/L (3.5-5.1) 06/01/17 07:00 Chloride 108 mmol/L (98-107) H 06/01/17 07:00 Carbon Dioxide 23 mmol/L (21-32) 06/01/17 07:00 Anion Gap 9 (8-16) 06/01/17 07:00 BUN 14 mg/dL (7-18) 06/01/17 07:00 Creatinine 0.7 mg/dL (0.55-1.02) 06/01/17 07:00 Creat Clearance w eGFR > 60 (>60) 06/01/17 07:00 Random Glucose 87 mg/dL (74-106) 06/01/17 07:00 Calcium 8.5 mg/dL (8.5-10.1) 06/01/17 07:00 Total Bilirubin 0.1 mg/dL (0.2-1.0) L 06/01/17 07:00 AST 21 U/L (15-37) 06/01/17 07:00 ALT 25 U/L (12-78) 06/01/17 07:00 Alkaline Phosphatase 79 U/L (45-117) 06/01/17 07:00 Total Protein 6.0 g/dl (6.4-8.2) L 06/01/17 07:00 Albumin 2.4 g/dl (3.4-5.0) L 06/01/17 07:00 Microbiology 05/29/17 16:15 Blood - Peripheral Venous Blood Culture - Final NO GROWTH AFTER 5 DAYS INCUBATION 05/29/17 16:10 Blood - Peripheral Venous Blood Culture - Final NO GROWTH AFTER 5 DAYS INCUBATION 05/30/17 13:45 Urine - Urine - Catheterized Urine Culture - Final Yeast Like Organism 05/29/17 10:37 Urine - Urine Clean Catch Urine Culture - Final Contaminated: Please Repeat Assessment: This is a 66 year old female with PMHx of HTN, hyperlipidemia, CAD s /p stenting, COPD, peripheral arterial disease, who presented to the ED with suprapubic and right flank pain, dysuria, frequency, urinary incontinence and foul-smelling urine x 2 days Plan: 1) Candiduria - Resolving - Continue Diflucan (06/02- ) - Continue Ceftriaxone, complete two week course 2) PAD, s/p multiple stents/bypass, recent 03/2017 - INR therapeutic, d/c Heparin gtt today - Restarted on Plavix 05/31 - Apprciate vascular surgery consult 3) DEANA - Resolved 4) HTN - Continue lisinopril 5) Hyperlipidemia - Continue Lipitor 6) COPD - Continue Spiriva - Continue Symbicort 7) F/E/N: - Monitor electrolytes - Sodium controlled diet - Hypomagnesemia: resolved 8) Prophylaxis: - On coumadin - PT 9) Dispo - Requires continued inpatient care CODE STATUS: FULL CODE Visit type - Emergency Visit Emergency Visit: Yes ED Registration Date: 05/31/17 Care time: The patient presented to the Emergency Department on the above date and was hospitalized for further evaluation of their emergent condition. - New Patient This patient is new to me today: No - Critical Care Critical Care patient: No
[2017-06-04] MEDS ORDERED: WARFARIN NA 2.5 MG TABLET (FP) PO SCH (15:32)
[2017-06-04] MEDS ORDERED: WARFARIN NA 2 MG TABLET (UD) PO SCH (15:36)
[2017-06-04] MEDS: ATORVASTATIN CA 20 MG TABLET (FP) PO SCH (21:59)
[2017-06-04] MEDS: MONTELUKAST NA 10 MG TABLET PO SCH (21:59)
[2017-06-05 08:17] LABS: HEMATOCRIT 26.8 % (32.4-45.2); HEMOGLOBIN 8.9 GM/dL (10.7-15.3); MCH 30.5 pg (25.7-33.7); MCHC 33.1 g/dl (32.0-36.0); MEAN CELL VOLUME 92.2 fl (80-96); MEAN PLT VOLUME 8.5 fl (7.5-11.1); PLATELET COUNT 371 K/MM3 (134-434); RBC 2.91 M/mm3 (3.60-5.2); RDW 20.5 % (11.6-15.6); WHITE BLOOD COUNT 8.2 K/mm3 (4.0-10.0)
[2017-06-05 08:54] LABS: INR 2.78 (0.82-1.09); PROTHROMBIN TIME (PATIENT) 31.4 SEC (9.98-11.88)
[2017-06-05] MEDS ORDERED: PT OWN MED DRAWER 7, Y5N ONE (09:08)
[2017-06-05] MEDS ORDERED: cefTRIAXone SODIUM 1 GM VIAL ONE (09:08)
[2017-06-05] MEDS ORDERED: DEXTROSE 5%-WATER - 50 ML IVPB ONE (09:09)
[2017-06-05] MEDS: VERAPAMIL HCL 180 MG E.R. TABLET (FP) PO SCH (09:12)
[2017-06-05] MEDS: FLUCONAZOLE 100 MG TABLET (UD) PO SCH (09:12)
[2017-06-05] MEDS: CLOPIDOGREL BISULFATE 75 MG TABLET (FP) PO SCH (09:13)
[2017-06-05] MEDS: GABAPENTIN 300 MG CAPSULE (FP) PO SCH (09:13)
[2017-06-05] MEDS: POLYETHYLENE GLYCOL 3350 119 GM BTL PO SCH (09:13)
[2017-06-05] MEDS: PANTOPRAZOLE 40 MG TABLET (FP) PO SCH (09:14)
[2017-06-05] MEDS: LISINOPRIL 20 MG TABLET (FP) PO SCH (09:14)
[2017-06-05] MEDS: CEFTRIAXONE 1 GM in DEXTROSE 5%-WATER - 50 ML IVPB SCH (09:14)
[2017-06-05] MEDS: TIOTROPIUM BROMIDE 18 MCG CAPSULES IH SCH (09:15)
[2017-06-05] MEDS: NICOTINE 21 MG/24 HOURS TOPICAL PATCH TD SCH (09:16)
[2017-06-05 12:36] VITALS: BP 138/67; PULSE 63; TEMP 97.5
--- NOTE | 2017-06-05 15:26 | DS ---
Physical Examination Vital Signs: Vital Signs Temperature 97.5 F L 06/05/17 08:05 Pulse Rate 63 06/05/17 08:05 Respiratory Rate 20 06/05/17 08:05 Blood Pressure 138/67 06/05/17 08:05 O2 Sat by Pulse Oximetry (%) 95 06/04/17 21:00 Labs: CBC, BMP 06/05/17 06:25 06/01/17 07:00 Discharge Summary Reason For Visit: UTI /W PYURIA, FAILURE OF OUTPATIENT TREATMENT Hospital Course: This is a 66 year old female with PMHx of HTN, hyperlipidemia, CAD s/p stenting , COPD, peripheral arterial disease, who presented to the ED with suprapubic and right flank pain, dysuria, frequency, urinary incontinence and foul- smelling urine x 2 days Plan: 1) Candiduria - Symptomatic - Continue Diflucan (06/02- ), complete two week course - Continue Ceftriaxone, complete two week course 2) PAD, s/p multiple stents/bypass, recent 03/2017 - INR therapeutic - Restarted on Plavix 05/31 - Appreciate vascular surgery consult 3) DEANA - Resolved 4) HTN - Restart lisinopril 5) Hyperlipidemia - Continue Lipitor 6) COPD - Continue Spiriva - Continue Symbicort Condition: Improved - Instructions Diet, Activity, Other Instructions: Please return to the ED with new, persistent, or worsening symptoms. Please follow-up with providers as indicated. Please have your INR checked daily. Your Coumadin dose should be adjusted if your INR is subtherapeutic or supratherapeutic. Continue taking Diflucan and Ceftin for a total 14 day course. Referrals: Phil Sandoval MD [Primary Care Provider] - (Please follow-up with your primary care provider within 2-3 days) Abrahan Morgan MD [Staff Physician] - 1 Week Disposition: [facility]ILITY - Home Medications Comprehensive Discharge Medication List: Ambulatory Orders Gabapentin 600 mg PO QID 02/19/17 Montelukast Na [Singulair -] 10 mg PO HS 02/19/17 Verapamil HCl ER [Calan Sr -] 180 mg PO DAILY 02/19/17 Lisinopril [Prinivil] 20 mg PO DAILY #30 tablet 02/28/17 Pantoprazole Sodium [Protonix -] 40 mg PO DAILY #30 tablet.ec 02/28/17 Tiotropium [place] [Spiriva] 1 puff IH DAILY #1 inh 02/28/17 Atorvastatin Ca [Lipitor] 20 mg PO HS tablet 06/05/17 Cefuroxime Axetil [Ceftin -] 500 mg PO Q12H #14 tablet 06/05/17 Clopidogrel Bisulfate [Plavix -] 75 mg PO DAILY tablet 06/05/17 Docusate Sodium [Colace -] 100 mg PO Q8H PRN capsule 06/05/17 Fluconazole [Diflucan -] 200 mg PO DAILY #10 tablet 06/05/17 Nicotine Patch [Nicoderm Patch -] 21 mg TD DAILY patch 06/05/17 Polyethylene Glycol 3350 [Miralax 119 gm Btl -] 17 gm PO DAILY bottle 06/05/17 Sennosides [Senna -] 2 tab PO HS PRN tablet 06/05/17 Warfarin Na [Coumadin -] 4 mg PO DAILY@1800 tablet 06/05/17 This patient is new to me today: No Emergency Visit: Yes ED Registration Date: 05/31/17 Care time: The patient presented to the Emergency Department on the above date and was hospitalized for further evaluation of their emergent condition. Critical Care patient: No - Discharge Referral Referred to [facility] Yes Physician Referral: Phil Hdez MD ([facility])
== END 2017-06-05 13:36 | DRG 683 ==
LOC: JER 08:59 → JERBED 14:12 → J8W 15:47 → OBSVTOIN 05-31 09:22
PROVIDERS: ADMIT Internal Medicine; ATTEND Registered Nurse
DX: N17.9 Acute kidney failure, unspecified (principal); N39.0 Urinary tract infection, site not specified; I73.9 Peripheral vascular disease, unspecified; I25.10 Atherosclerotic heart disease of native coronary artery without angina pectoris; Z98.61 Coronary angioplasty status; E78.5 Hyperlipidemia, unspecified; J44.9 Chronic obstructive pulmonary disease, unspecified; I10 Essential (primary) hypertension; E83.42 Hypomagnesemia
CPT/HCPCS: 36415; 76775-TC; 76856-TC; 80048; 80053; 81003; 81015; 82272; 82570; 83735; 84300; 85025; 85027; 85610; 85730; 87040; 87077; 87086; 90670; 97116-GP; 97161-GP; 99285-25; G0378; J1644; J7030

== ENCOUNTER 2017-07-05 21:55 | Inpatient (IN) | payer OTHER, BC ==
[2017-07-05 22:05] VITALS: BMI 28.9
--- NOTE | 2017-07-05 22:07 | PDOC ---
History of Present Illness - General Chief Complaint: Pain Stated Complaint: PAIN Time Seen by Provider: 07/05/17 22:06 Past History - Past Medical History Allergies/Adverse Reactions: Allergies Allergy/AdvReac Type Severity Reaction Status Date / Time No Known Allergies Allergy Verified 07/05/17 22:05 Home Medications: Ambulatory Orders Gabapentin 600 mg PO QID 02/19/17 Montelukast Na [Singulair -] 10 mg PO HS 02/19/17 Verapamil HCl ER [Calan Sr -] 180 mg PO DAILY 02/19/17 Lisinopril [Prinivil] 20 mg PO DAILY #30 tablet 02/28/17 Pantoprazole Sodium [Protonix -] 40 mg PO DAILY #30 tablet.ec 02/28/17 Tiotropium [place] [Spiriva] 1 puff IH DAILY #1 inh 02/28/17 Atorvastatin Ca [Lipitor] 20 mg PO HS tablet 06/05/17 Cefuroxime Axetil [Ceftin -] 500 mg PO Q12H #14 tablet 06/05/17 Clopidogrel Bisulfate [Plavix -] 75 mg PO DAILY tablet 06/05/17 Docusate Sodium [Colace -] 100 mg PO Q8H PRN capsule 06/05/17 Fluconazole [Diflucan -] 200 mg PO DAILY #10 tablet 06/05/17 Nicotine Patch [Nicoderm Patch -] 21 mg TD DAILY patch 06/05/17 Polyethylene Glycol 3350 [Miralax 119 gm Btl -] 17 gm PO DAILY bottle 06/05/17 Sennosides [Senna -] 2 tab PO HS PRN tablet 06/05/17 Warfarin Na [Coumadin -] 4 mg PO DAILY@1800 tablet 06/05/17 Anemia: No Asthma: No Cancer: No Cardiac Disorders: Yes (mi'08 STENT) CVA: No COPD: No Dementia: No Diabetes: No GI Disorders: Yes (REFLUX) Disorders: No HTN: Yes Hypercholesterolemia: Yes Liver Disease: No Seizures: No Thyroid Disease: No - Surgical History Cardiac Surgery: (STENT 2007) Orthopedic Surgery: Yes (LEFT TKR ~2009) - Suicide/Smoking/Psychosocial Hx Smoking History: Former smoker Have you smoked in the past 12 months: Yes Number of Cigarettes Smoked Daily: 2 If you are a former smoker, when did you quit?: 02/2017 Information on smoking cessation initiated: No 'Breaking Loose' booklet given: 02/19/17 Hx Alcohol Use: No Drug/Substance Use Hx: No Substance Use Type: None Hx Substance Use Treatment: No *Physical Exam - Vital Signs Last Vital Signs Temp Pulse Resp BP Pulse Ox 98.5 F 93 H 16 145/91 100 07/05/17 22:01 07/05/17 22:01 07/05/17 22:01 07/05/17 22:01 07/05/17 22:01
--- NOTE | 2017-07-05 22:11 | PDOC ---
History of Present Illness - General Chief Complaint: Pain Stated Complaint: PAIN Time Seen by Provider: 07/05/17 22:06 History Source: Patient Exam Limitations: No Limitations - History of Present Illness Initial Comments: 07/05/17 22:50 66 year-old female with a PMHx of HTN, HLD, CAD s/p stent, COPD, PAD with left Femoral/Popliteal Thrombectomy/Popliteal Anterior Tibial Bypass (x 2- 02/21 and 03/20/16) with Dr Scott presenting with cold L leg since 7.30pm today. Patient lives alone at home and was brought in by [employer] called by her daughter [place]. Pt describes the pain as 10/10 from L knee down to toes, with associated coldness of the R feet. There is also associated decreased sensation that has been since the revision 03/20/17. Patient is compliant on her medications, but reported difficulty maintaining therapeutic range with her warfarin (both supra and inadequately therapeutic). She uses 3mg of warfarin on weekdays and 3.5mg over the weekend (last dose yesterday evening), and cannot remember her last INR. Pt ambulates with a walker and has had difficulty bearing weight on the L foot. She also uses plavix. No chest pain, SOB, cough. No syncope, no seizures, blurring of vision or weakness of any part of the body. No dysuria or hematuria. She saw her PCP today and had blood draws prior to noticing the cold feet this eveneing. 07/05/17 22:54 Timing/Duration: 4-6 hours Severity: moderate Associated Symptoms: denies: chest pain, cough, diaphoresis, fever/chills, loss of appetite, nausea/vomiting, shortness of breath, syncope, weakness Past History - Travel Traveled outside of the country in the last 30 days: No Close contact w/someone who was outside of country & ill: No - Past Medical History Allergies/Adverse Reactions: Allergies Allergy/AdvReac Type Severity Reaction Status Date / Time No Known Allergies Allergy Verified 07/05/17 22:05 Home Medications: Ambulatory Orders Gabapentin 600 mg PO QID 02/19/17 Montelukast Na [Singulair -] 10 mg PO HS 02/19/17 Verapamil HCl ER [Calan Sr -] 180 mg PO DAILY 02/19/17 Lisinopril [Prinivil] 20 mg PO DAILY #30 tablet 02/28/17 Pantoprazole Sodium [Protonix -] 40 mg PO DAILY #30 tablet.ec 02/28/17 Tiotropium [place] [Spiriva] 1 puff IH DAILY #1 inh 02/28/17 Atorvastatin Ca [Lipitor] 20 mg PO HS tablet 06/05/17 Cefuroxime Axetil [Ceftin -] 500 mg PO Q12H #14 tablet 06/05/17 Clopidogrel Bisulfate [Plavix -] 75 mg PO DAILY tablet 06/05/17 Docusate Sodium [Colace -] 100 mg PO Q8H PRN capsule 06/05/17 Fluconazole [Diflucan -] 200 mg PO DAILY #10 tablet 06/05/17 Nicotine Patch [Nicoderm Patch -] 21 mg TD DAILY patch 06/05/17 Polyethylene Glycol 3350 [Miralax 119 gm Btl -] 17 gm PO DAILY bottle 06/05/17 Sennosides [Senna -] 2 tab PO HS PRN tablet 06/05/17 Warfarin Sodium [Coumadin] 3 mg PO 07/05/17 Warfarin Sodium [Coumadin] 3.5 mg PO 07/05/17 Anemia: No Asthma: No Cancer: No Cardiac Disorders: Yes (mi'08 STENT) CVA: No COPD: No Dementia: No Diabetes: No GI Disorders: Yes (REFLUX) Disorders: No HTN: Yes Hypercholesterolemia: Yes Liver Disease: No Seizures: No Thyroid Disease: No - Surgical History Abdominal Surgery: No Appendectomy: No Cardiac Surgery: (STENT 2007) Cholecystectomy: No Lung Surgery: No Neurologic Surgery: No Orthopedic Surgery: Yes (LEFT TKR ~2009) - Suicide/Smoking/Psychosocial Hx Smoking History: Former smoker Have you smoked in the past 12 months: Yes Number of Cigarettes Smoked Daily: 2 If you are a former smoker, when did you quit?: 02/2017 Information on smoking cessation initiated: No 'Breaking Loose' booklet given: 02/19/17 Hx Alcohol Use: No Drug/Substance Use Hx: No Substance Use Type: None Hx Substance Use Treatment: No Review of Systems - Review of Systems Constitutional: No: Chills, Diaphoresis, Fever, Night Sweats, Weakness HEENTM: No: Blurred Vision Respiratory: No: Cough, Orthopnea, Shortness of Breath, Wheezing Cardiac (ROS): No: Chest Pain, Edema, Palpitations, Syncope ABD/GI: No: Nausea, Vomiting : No: Burning, Dysuria, Discharge Musculoskeletal: Yes: Other (Cold swollen foot. Reduced touch sensation on LLE compared to RLE. ). No: Back Pain Neurological: No: Headache, Numbness, Paresthesia, Seizure *Physical Exam - Vital Signs Last Vital Signs Temp Pulse Resp BP Pulse Ox 98.5 F 93 H 16 145/91 100 07/05/17 22:01 07/05/17 22:01 07/05/17 22:01 07/05/17 22:01 07/05/17 22:01 - Physical Exam General Appearance: Yes: Moderate Distress HEENT: positive: EOMI, NAHOMI, Pharynx Normal Neck: positive: Supple. negative: Tender Respiratory/Chest: positive: Lungs Clear, Normal Breath Sounds. negative: Respiratory Distress, Stridor, Wheezing Cardiovascular: positive: S1, S2, Tachycardia Gastrointestinal/Abdominal: positive: Normal Bowel Sounds. negative: Tender Musculoskeletal: negative: CVA Tenderness Extremity: positive: Coldness (Cold LLE from feet to ankle, with mild swelling, non pitting edema, reduced sensation on LLE, DP absent on LLE). negative: Calf Tenderness Neurologic: positive: Fully Oriented, Alert, Motor Strength 5/5. negative: EOM Palsy, Facial Droop, Confused, Disoriented Heart Score/ECG Review - Age Age: >/= 65 - Risk Factors Risk Factors Heart Score: Yes Hx Hypertension - Gleason Gleason: Normal - P and VA Delta Wave(s) Present: No WPW: No - QRS Widened: LBBB (Normal sinus rhythm, Ventricular rate 84bpm, LBBB, QT/QTc-452/534 ) - ST and T Flattened T Waves: No Prolonged Q-T Interval: Yes ED Treatment Course - LABORATORY CBC & Chemistry Diagram: 07/05/17 22:48 07/05/17 22:45 Medical Decision Making - Medical Decision Making 07/05/17 23:57 CBC, CMP, PT, PTT, arterial duplex LLE, CTA with abdominal runoff- R/O critical limb ischemia s/p thrombectomy x 2 Arterial duplex- No definite flow is identified within the left superficial femoral, popliteal or posterior arteries consistent with occlusion. CMP- Cr-1.0 Pending CTA result Consult to Dr Morgan 07/06/17 00:[address] Morgan and patient can get heparin gtt without bolus because she is therapeutic at INR-3.0 Patient may need amputation. To admit under hospitalist [employer] sent to hospitalist to admit under Dr Forde and accepted 07/06/17 00:30 CTA result pending 07/06/17 00:35 *DC/Admit/Observation/Transfer Diagnosis at time of Disposition: PVD (peripheral vascular disease), Peripheral arterial occlusive disease - Discharge Dispostion Condition at time of disposition: Fair Admit: Yes - Referrals - Patient Instructions - Post Discharge Activity - Attestations Physician Attestion: 07/06/17 00:25 Lisa Reeves MD
[2017-07-05] MEDS ORDERED: morphine CARPU-JECT 2 MG/1 ML DISP.SYRIN IVPUSH ONE (22:30)
[2017-07-05] MEDS ORDERED: morphine SULFATE 4 MG/ML VIAL ONE (22:47)
[2017-07-05 22:59] LABS: BASO % 1.4 % (0-2.0); HEMATOCRIT 34.5 % (32.4-45.2); HEMOGLOBIN 11.3 GM/dL (10.7-15.3); LYMPH % 21.5 % (8-40); MCH 29.7 pg (25.7-33.7); MCHC 32.7 g/dl (32.0-36.0); MEAN CELL VOLUME 90.7 fl (80-96); MEAN PLT VOLUME 9.3 fl (7.5-11.1); MONO % 8.1 % (3.8-10.2); PLATELET COUNT 293 K/MM3 (134-434); RDW 19.9 % (11.6-15.6); WHITE BLOOD COUNT 8.1 K/mm3 (4.0-10.0)
[2017-07-05 23:12] LABS: INR 3.04 (0.82-1.09); PROTHROMBIN TIME (PATIENT) 34.4 SEC (9.7-13.0)
[2017-07-05 23:26] LABS: ALBUMIN 3.8 g/dl (3.4-5.0); ALK PHOS 98 U/L (45-117); ANION GAP 11 (8-16); BILIRUBIN,TOTAL 0.2 mg/dL (0.2-1.0); BLOOD UREA NITROGEN 21 mg/dL (7-18); CALCIUM 8.9 mg/dL (8.5-10.1); CHLORIDE 107 mmol/L (98-107); CO2 23 mmol/L (21-32); GLUCOSE,RANDOM 127 mg/dL (74-106); POTASSIUM 3.7 mmol/L (3.5-5.1); SGOT/AST 13 U/L (15-37); SGPT/ALT 13 U/L (12-78); SODIUM 141 mmol/L (136-145); TOT PROT 7.3 g/dl (6.4-8.2)
--- NOTE | 2017-07-05 23:58 | PDOC ---
Attending Attestation - Resident Resident Name: AliciaSpring - ED Attending Attestation I have performed the following: I have examined & evaluated the patient, The case was reviewed & discussed with the resident, I agree w/resident's findings & plan, Exceptions are as noted - HPI HPI: 07/05/17 23:54 66 yo female brought in by car for left foot pain. She reports that her left foot is cold since about 7:30 this evening. Significant medical history of left femoral /popliteal thrombectomy and popliteal anterior tibial bypass done in February 2017 . - Physicial Exam PE: 07/05/17 23:58 wnwd 66 yo female p/w with left cold foot and leg head ncat neck supple lungs cta b/l cvs [id number] abd nontender extremities - the left foot is cold to touch musculoskeletal - no cva tenderness neuro axox3 07/06/17 00:16 - Medical Decision Making 07/06/17 00:17 ARTERIAL DUPPLEX RESULTS: NO FLOW WITHIN LEFT SUPERFICIAL FEMORAL,POPLITEAL OR POSTERIOR ARTERIES CONSISTENT WITH OCCLUSION -Consulted vascular surgeon Dr Liz Morgan and discussed pt's imaging studies and the fact her INR is therapeutic . Will start heparin but NO BOLUS,stop coumadin and he'll see her in the morning -case discussed with Dr Forde and pt admitted for anticoagulation and surgical consultation
[2017-07-06] MEDS ORDERED: HEPARIN NA (PORCINE) 5,000 UNITS/ML 1ML VIAL IVPUSH PRN ×2 (00:05)
--- NOTE | 2017-07-06 00:10 | PN ---
Teaching Attending Note Name of Resident: Connie Goetz ATTENDING PHYSICIAN STATEMENT I saw and evaluated the patient. I reviewed the resident's note and discussed the case with the resident. I agree with the resident's findings and plan as documented. SUBJECTIVE: 66 F with pmhx. of htn, hld, CAD s/p Stent, COPD, and PAD, who is s/p recent admission for UTI in May and had mutiple stents and bypass in March of 2017. Patient presents today with a cold left foot. Notes foot started getting cold around 1930 this afternoon. The bypass she had done was Polpiteal and ant. tibial bypass. She had also had a left femoral/polpiteal thrombectomy. States she is on Warfarin, but has had trouble maintaining theraputic levels. No fevers or chills. No chest pain or pressure. OBJECTIVE: Physical: VS: Vital Signs Period Temp Pulse Resp BP Sys/Olguin Pulse Ox Last 24 Hr 98.5 F 93 16 145/91 100 GEN: NAD,Resting in bed, AA0X3 HEENT: NCAT, PERRL, Throat without erythema or exudates CARD: RRR S1, S2 RESP: Decreased breath sounds at bases ABD: BSx4, NTD to palpation EXT: Pluses not palpable DP on L. leg/foot cold to palpation CBCD WBC 8.1 K/mm3 (4.0-10.0) 07/05/17 22:48 RBC 3.80 M/mm3 (3.60-5.2) D 07/05/17 22:48 Hgb 11.3 GM/dL (10.7-15.3) D 07/05/17 22:48 Hct 34.5 % (32.4-45.2) D 07/05/17 22:48 MCV 90.7 fl (80-96) 07/05/17 22:48 MCHC 32.7 g/dl (32.0-36.0) 07/05/17 22:48 RDW 19.9 % (11.6-15.6) H 07/05/17 22:48 Plt Count 293 K/MM3 (134-434) D 07/05/17 22:48 MPV 9.3 fl (7.5-11.1) 07/05/17 22:48 CMP Sodium 141 mmol/L (136-145) 07/05/17 22:45 Potassium 3.7 mmol/L (3.5-5.1) 07/05/17 22:45 Chloride 107 mmol/L (98-107) 07/05/17 22:45 Carbon Dioxide 23 mmol/L (21-32) 07/05/17 22:45 Anion Gap 11 (8-16) 07/05/17 22:45 BUN 21 mg/dL (7-18) H 07/05/17 22:45 Creatinine 1.0 mg/dL (0.55-1.02) 07/05/17 22:45 Creat Clearance w eGFR 55.14 (>60) 07/05/17 22:45 Random Glucose 127 mg/dL (74-106) H 07/05/17 22:45 Calcium 8.9 mg/dL (8.5-10.1) 07/05/17 22:45 Total Bilirubin 0.2 mg/dL (0.2-1.0) D 07/05/17 22:45 AST 13 U/L (15-37) L 07/05/17 22:45 ALT 13 U/L (12-78) 07/05/17 22:45 Alkaline Phosphatase 98 U/L (45-117) 07/05/17 22:45 Total Protein 7.3 g/dl (6.4-8.2) 07/05/17 22:45 Albumin 3.8 g/dl (3.4-5.0) 07/05/17 22:45 EKG:NSR LBBB (old) DUPLEX L. ART: No deifnate flow ID'd within left superficial femoral, polpiteal or posterior arteries c/w occlusion. Ambulatory Orders Gabapentin 600 mg PO QID 02/19/17 Montelukast Na [Singulair -] 10 mg PO HS 02/19/17 Verapamil HCl ER [Calan Sr -] 180 mg PO DAILY 02/19/17 Lisinopril [Prinivil] 20 mg PO DAILY #30 tablet 02/28/17 Pantoprazole Sodium [Protonix -] 40 mg PO DAILY #30 tablet.ec 02/28/17 Tiotropium [place] [Spiriva] 1 puff IH DAILY #1 inh 02/28/17 Atorvastatin Ca [Lipitor] 20 mg PO HS tablet 06/05/17 Cefuroxime Axetil [Ceftin -] 500 mg PO Q12H #14 tablet 06/05/17 Clopidogrel Bisulfate [Plavix -] 75 mg PO DAILY tablet 06/05/17 Docusate Sodium [Colace -] 100 mg PO Q8H PRN capsule 06/05/17 Fluconazole [Diflucan -] 200 mg PO DAILY #10 tablet 06/05/17 Nicotine Patch [Nicoderm Patch -] 21 mg TD DAILY patch 06/05/17 Polyethylene Glycol 3350 [Miralax 119 gm Btl -] 17 gm PO DAILY bottle 06/05/17 Sennosides [Senna -] 2 tab PO HS PRN tablet 06/05/17 Warfarin Sodium [Coumadin] 3 mg PO 07/05/17 Warfarin Sodium [Coumadin] 3.5 mg PO 07/05/17 CTA-Tiny gallstone, SERGIO and tiny non-obst. L. 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 stent with diminished 3V runoff, Diffuse RLext athrosclerosis, mildly diminished 3V runoff. ASSESSMENT AND PLAN: 66 F with pmhx. of htn, hld, CAD s/p Stent, COPD, and PAD, who is s/p recent admission for UTI in May and had mutiple stents and bypass (03/25), who presents with "cold left foot" 1.) PAD with Arterial Occlusion of L. VOCATIONAL SERVICES SPECIALIST polp. Stent - Coags, Cbc in am - Hep. gtt no bolus - Type & Screen. - NPO - Coags. - Plavix - Vasc Sx. Consulted appreciate reccs 2.) HLD - C/W Statin 3.) COPD - Nebs prn - Spiriva/Singulair - Pulm. Consult 4.) HTN - C/W Verapamil/Mohan 5.) Inc. QtC - Keep K >4.0 - Mg2+ >2.0 - Avoid QtC prolonging agents 6.) CAD s/P Stents - Old LBBB - C/w Home meds - Cardio 7.) HLD - C/W Statin Place in Med-Sx
[2017-07-06] MEDS ORDERED: HEPARIN - 25,000 UNIT in SODIUM CHLORIDE 495 ML IV SCH (00:15)
[2017-07-06] MEDS ORDERED: HEPARIN INFUSION - 25,000 UNITS/500 ML INFUS.BAG IVPB ONE (00:19)
[2017-07-06] MEDS ORDERED: HEPARIN NA (PORCINE) 5,000 UNITS/ML 1ML VIAL ONE (00:19)
[2017-07-06] MEDS ORDERED: morphine CARPU-JECT 4 MG/1 ML DISP.SYRIN IVPUSH ONE (00:27)
[2017-07-06] MEDS ORDERED: morphine SULFATE 4 MG/ML VIAL ONE (00:28)
--- NOTE | 2017-07-06 01:29 | MSN ---
Admitting History and Physical - Admission Chief Complaint: Left Leg Pain History of Present Illness: Patient is a 66 year old female with a past medical hx of PAD (left femoral and poplitial thrombecotmy, and popliteal anterior tibial bypass 03/25, and bilateral SFA stents), CAD, HTN, and HLD presenting for left leg pain that started tonight while sitting down. The patient stated that she felt her leg getting cold at 7pm tonight and a sharp pain began shortly after. The patient states that the pain came on suddenly is getting worse and is a 8/10 on a pain scale. The patient states that she normally has decreased sensation in both of her legs but since her symptoms started her sensation has diminished further. The patient states that she has pain in her legs when she walks farther then the length of a room. Patient has no hx of AFIB, venous thromboembolism, or oncology work up. Patient has been taking aspirin, plavix and Coumadin as directed but states multiple changes in Coumadin dosing due to fluctuating INR. The patient admits to SOB but denies any chest pain, fevers, chills, recent trauma, or abdominal pain. In the ER a CTA and duplex arterial ultrasound were obtained, patient was started on heparin and coumadin was held. Consult with vascular surgery was placed to Dr. Crespo. 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 Cardiovascular: Yes: CAD, HTN, Hyperlipdemia, Other (Cardiac stents placed, history of peripheral vascular disease) Pulmonary: Yes: COPD, Other (Former smoker) Musculoskeletal: Yes: Other (chronic back pain) - Past Surgical History Past Surgical History: Yes: Joint Replacement (left knee), Stent - Smoking History Smoking history: Former smoker Have you smoked in the past 12 months: Yes Aproximately how many cigarettes per day: 2 If you are a former smoker, when did you quit?: 02/2017 - Alcohol/Substance Use Hx Alcohol Use: No Home Medications - Allergies Allergies/Adverse Reactions: Allergies Allergy/AdvReac Type Severity Reaction Status Date / Time No Known Allergies Allergy Verified 07/05/17 22:05 - Home Medications Home Medications: Ambulatory Orders Gabapentin 600 mg PO QID 02/19/17 Montelukast Na [Singulair -] 10 mg PO HS 02/19/17 Verapamil HCl ER [Calan Sr -] 180 mg PO DAILY 02/19/17 Lisinopril [Prinivil] 20 mg PO DAILY #30 tablet 02/28/17 Pantoprazole Sodium [Protonix -] 40 mg PO DAILY #30 tablet.ec 02/28/17 Tiotropium [place] [Spiriva] 1 puff IH DAILY #1 inh 02/28/17 Atorvastatin Ca [Lipitor] 20 mg PO HS tablet 06/05/17 Cefuroxime Axetil [Ceftin -] 500 mg PO Q12H #14 tablet 06/05/17 Clopidogrel Bisulfate [Plavix -] 75 mg PO DAILY tablet 06/05/17 Docusate Sodium [Colace -] 100 mg PO Q8H PRN capsule 06/05/17 Fluconazole [Diflucan -] 200 mg PO DAILY #10 tablet 06/05/17 Nicotine Patch [Nicoderm Patch -] 21 mg TD DAILY patch 06/05/17 Polyethylene Glycol 3350 [Miralax 119 gm Btl -] 17 gm PO DAILY bottle 06/05/17 Sennosides [Senna -] 2 tab PO HS PRN tablet 06/05/17 Warfarin Sodium [Coumadin] 3 mg PO 07/05/17 Warfarin Sodium [Coumadin] 3.5 mg PO 07/05/17 Review of Systems - Review of Systems Constitutional: reports: No Symptoms HENT: reports: Other (dry Mouth) Cardiovascular: reports: Edema (left foot moderately swollen), Shortness of Breath. denies: Chest Pain Respiratory: reports: SOB Gastrointestinal: denies: Abdominal Pain Musculoskeletal: reports: Extremity Pain Neurological: reports: Parasthesia (decreased sensation in the left foot) Physical Examination Vital Signs: Vital Signs Temperature 98.5 F 07/05/17 22:01 Pulse Rate 93 H 07/05/17 22:01 Respiratory Rate 16 07/05/17 22:01 Blood Pressure 145/91 07/05/17 22:01 O2 Sat by Pulse Oximetry (%) 100 07/05/17 22:01 Constitutional: Yes: Well Nourished, No Distress, Calm HENT: Yes: Other (Dry Mucous mebranes). No: Pharyngeal Erythema, Thrush Cardiovascular: Yes: Regular Rate and Rhythm Respiratory: Yes: Diminished, SOB Gastrointestinal: Yes: Soft, Hyperactive Bowel Sounds. No: Pulsatile Mass, Splenomegaly, Tenderness, Tenderness, Epigastrium, Tenderness, Rebound Extremities: Yes: Calf Tenderness, Cold, Pallor (left extremity cold to touch with decreased sensation and swelling) Edema: Yes Edema: LLE: 1+ Peripheral Pulses: Left Doralis Pedis: 0, Right Dorsalis Pedis: 2+, Right Femoral: 2+ Neurological: Yes: Numbness, Paresthesia (decreased sensation of the left foot in the dorsal and plantar aspects), Tingling Labs: CBC, BMP 07/05/17 22:48 07/05/17 22:45 Assessment/Plan Patient is a 66 year old female with pmhx of PAD (s/p stent and bypass in 03/25) , CAD, COPD, HTN, HLD and past hx of smoking that is presenting for left leg pain. 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 Crespo on board, will see patient in the morning - Start heparin drip - holding aspirin and plavix for possible procedure - start morphine for pain control - NPO, coags, CBC for possible surgical procedure - heme/onc consultation placed for possible hypercoaguable state 2) COPD - Consult place to Dr. Smith because of diminished breath sounds and SOB - consider Duo-Neb treatment if SOB progresses 3) HTN - continue verapamil 4) HLD - continue with statin 5) LBBB - consistent with old EKG - hx of coronary artery stenting - cardio consultation placed because of cardiac hx 6) GERD - Start IV protonix 7) Smoking Hx - Nicotine Patch F/E/N - no fluid given at this time - Potassium 10meq and and magnesium 2 gm given (K-3.7, Mg- 1.5) - NPO for possible surgery Disp - preparing for possibility of surgical procedure while awaiting vascular surgery consultation by Dr. Morgan
[2017-07-06] MEDS ORDERED: DOCUSATE SODIUM 100 MG CAPSULE (FP) PO PRN (01:41)
[2017-07-06] MEDS ORDERED: SENNOSIDES 8.6MG TABLET (FP) PO PRN (01:41)
[2017-07-06] MEDS ORDERED: MORPHINE SULFATE 10 MG/1 ML *VIAL ONE (01:50)
[2017-07-06] MEDS ORDERED: ALBUTEROL SO4 2.5/IPRATROPIUM 0.5 INH SOL 3 ML VIAL.NEB. NEB PRN (01:51)
--- NOTE | 2017-07-06 01:51 | HP ---
CHIEF COMPLAINT: LLE Pain PCP: Dr Sandoval HISTORY OF PRESENT ILLNESS: 66yo F with PMHx of 50+ pack year smoking hx, PAD, CAD (s/p stent), who presents with acute onset intermittent, sharp LLE pain. Started 730pm. Noticed foot was cool, has associated paresthesias and decreased sensation. Normally ambulates with walker, now cannot bear weight on L foot. Compliant with coumadin , plavix, and aspirin. Denies CP. Has chronic SOB, nothing acute. Denies foot discoloration. The patient has a long hx of PAD, especially in LLE. Had bilateral SFA stents placed, with subsequent L sided occlusions needing revascularizations. Recently in Mar 2017 presented with L ischemic limb, underwent a thrombectomy w/ L popliteal-anterior tibial bypass by Dr Morgan. She was d/c'd to [facility], noted to have fluctuating INRs every week, difficulty remaining therapeutic. Has no hx of Afib. No FHx of clots. Hasn't seen hematology. In the ER, vital signs were stable. Labs were unremarkable. INR was therapeutic. She was started on heparin ggt. Morphine for pain. CTA indicates occluded L fem-pop stent with diminished three vessel runoff. Dr Morgan was consulted in ER, will see patient tmrw. Recent Travel: Denies PAST MEDICAL HISTORY: COPD, HTN, CAD (s/p 1 cardiac stent) PAST SURGICAL HISTORY: L TKR, Cardiac Stent, Multiple revascularization procedures, LLE bypass Social History: Smoking: Prior 50+ pack year Alcohol: Denies Drugs: Denies Allergies: No Known Allergies Allergy (Verified 07/05/17 22:05) HOME MEDICATIONS: Home Medications Medication Instructions Recorded Gabapentin 600 mg PO QID 02/19/17 Montelukast Na [Singulair -] 10 mg PO HS 02/19/17 Verapamil HCl ER [Calan Sr -] 180 mg PO DAILY 02/19/17 Lisinopril [Prinivil] 20 mg PO DAILY #30 tablet 02/28/17 Pantoprazole Sodium [Protonix -] 40 mg PO DAILY #30 tablet.ec 02/28/17 Tiotropium [place] [Spiriva] 1 puff IH DAILY #1 inh 02/28/17 Atorvastatin Ca [Lipitor] 20 mg PO HS tablet 06/05/17 Cefuroxime Axetil [Ceftin -] 500 mg PO Q12H #14 tablet 06/05/17 Clopidogrel Bisulfate [Plavix -] 75 mg PO DAILY tablet 06/05/17 Docusate Sodium [Colace -] 100 mg PO Q8H PRN capsule 06/05/17 Fluconazole [Diflucan -] 200 mg PO DAILY #10 tablet 06/05/17 Nicotine Patch [Nicoderm Patch -] 21 mg TD DAILY patch 06/05/17 Polyethylene Glycol 3350 [Miralax 17 gm PO DAILY bottle 06/05/17 119 gm Btl -] Sennosides [Senna -] 2 tab PO HS PRN tablet 06/05/17 Warfarin Sodium [Coumadin] 3 mg PO 07/05/17 Warfarin Sodium [Coumadin] 3.5 mg PO 07/05/17 REVIEW OF SYSTEMS CONSTITUTIONAL: Absent: fever, chills, diaphoresis, generalized weakness, malaise, loss of appetite, weight change HEENT: Absent: rhinorrhea, nasal congestion, throat pain, throat swelling, difficulty swallowing, mouth swelling, ear pain, eye pain, visual changes CARDIOVASCULAR: Absent: chest pain, syncope, palpitations, irregular heart rate , lightheadedness, peripheral edema RESPIRATORY: +SOB (chronic)Absent: cough, dyspnea with exertion, orthopnea, wheezing, stridor, hemoptysis GASTROINTESTINAL:Absent: abdominal pain, abdominal distension, nausea, vomiting , diarrhea, constipation, melena, hematochezia GENITOURINARY: Absent: dysuria, frequency, urgency, hesitancy, hematuria, flank pain, genital pain MUSCULOSKELETAL: +myalgiaAbsent: arthralgia, joint swelling, back pain, neck pain SKIN: Absent: rash, itching, pallor HEMATOLOGIC/IMMUNOLOGIC: Absent: easy bleeding, easy bruising, lymphadenopathy, frequent infections ENDOCRINE:Absent: unexplained weight gain, unexplained weight loss, heat intolerance, cold intolerance NEUROLOGIC: Absent: headache, focal weakness or paresthesias, dizziness, unsteady gait, seizure, mental status changes, bladder or bowel incontinence PSYCHIATRIC: Absent: anxiety, depression, suicidal or homicidal ideation, hallucinations. PHYSICAL EXAMINATION Vital Signs Period Temp Pulse Resp BP Sys/Olguin Pulse Ox Last 24 Hr 98.5 F 84-93 16-18 129-145/58-91 94-100 GEN: AAOx3, Intermittently clenching LLE due to pain, relieved w/ morphine HEENT: PERRLA, EOMi, no JVD CV: S1, S2, RRR LUNG: Diminished BS bilaterally ABD: Soft, NT, ND MSK: LLE - Cool, pale decreased sensation, unable to palpate DP, post-tibial, pop , and fem pulses; minimal pedal edema, no discoloration RLE - Warm, sensation intact, palpable DP, PT, and Pop, fem pulses, no edema , no erythema NEURO: CN 2-12 intact, dec sensation in LLE, no faciald daria ASSESSMENT/PLAN: 66yo F with PMHx of 50+ pack year smoking hx, PAD, CAD (s/p stent), who presents with acute ischemic limb # PAD, Occluded L fem-pop stent -- Could have been caused by waxing/waning INR levels. No hx of Afib. Started on hep ggt with arterial occlusion protocol. Morphine for pain. Dr Morgan to possibly operate tmrw ?amputation vs thrombectomy. Will order preop labs including T&S, coag. NPO. Will get cardio + pulm to clear patient pre- operatively. Could have underlying coagulopathy, has not been worked up by heme , will consult. # CAD s/p stents -- Hold aspirin and plavix for upcoming procedure. Will trend trops. EKG is unchanged from prior, showing LBBB. Cardio consult for clearance. # COPD -- Not in acute exac. Continue LAMA and LTRA, add Albuterol prn. O2 as needed keep sats 88-92. Pulm consult for clearance. # Smoking hx -- Continue Nicotine patch # HTN -- Continue ACEi and CCB # HLD -- Continue statin # GERD -- Continue protonix # Constipation -- Continue PRN home regimens # Prolonged QTc -- >520, avoid prolonging agents # FEN -- No IVF, Mg and K+ repleted to keep at 2 and 4, NPO # Dispo -- Admit to med/surg Case d/w Dr Goetz & Dr Maurisio Neal MD - PGY1 Night Filling Mixer Visit type - Emergency Visit Emergency Visit: Yes ED Registration Date: 07/06/17 Care time: The patient presented to the Emergency Department on the above date and was hospitalized for further evaluation of their emergent condition. - New Patient This patient is new to me today: Yes Date on this admission: 07/06/17 - Critical Care Critical Care patient: No Hospitalist Screening - Colonoscopy Questionnaire Colonoscopy Questionnaire: Colonoscopy Questionnaire - Patient: 50 - 75 years old and never had a screening colonoscopy: Unknown History of colon or rectal polyps, or CA: Unknown History of IBD, Crohn's disease or UC: Unknown History of abdominal radiation therapy as a child: Unknown - Relative: 1 with colon or rectal CA, or polyps at age 60 or younger: Unknown Colon or rectal CA diagnosed at age 45 or younger: Unknown Multiple relatives with colon or rectal CA: Unknown - Outcome: Screening Result: Negative Screen
[2017-07-06] MEDS ORDERED: ALBUTEROL SO4 0.083% IH SOL 2.5 MG/3 ML VIAL.NEB. NEB PRN ×2 (01:54→10:10)
[2017-07-06] MEDS: HEPARIN INFUSION - 25,000 UNITS/500 ML INFUS.BAG IVPB SCH ×2 (02:03→22:40)
[2017-07-06] MEDS: morphine SULFATE 4 MG/ML VIAL IVPUSH PRN ×6 (02:05→22:36)
[2017-07-06 02:07] LABS: MAGNESIUM 1.5 mg/dL (1.8-2.4)
[2017-07-06] MEDS ORDERED: MAGNESIUM SULF 50% (8.12 MEQ/2 ML-1 GM VIAL) IVPB ONE ×2 (02:14→03:45)
[2017-07-06] MEDS ORDERED: KCL 10 MEQ IVPB 10 MEQ/100 ML INFUS.BAG IVPB SCH (02:15)
[2017-07-06] MEDS ORDERED: morphine SULFATE 4 MG/ML VIAL IVPUSH ONE ×2 (04:06→14:35)
[2017-07-06] MEDS ORDERED: POTASSIUM CHLORIDE TABS 20 MEQ TABLET.ER (FP) PO ONE ×2 (06:50→09:30)
--- NOTE | 2017-07-06 07:40 | PN ---
Physical Exam: SUBJECTIVE: Patient seen and examined. Complains of L foot pain. Denies shortness of breath, chest pain, palpitations. OBJECTIVE: Vital Signs Period Temp Pulse Resp BP Sys/Olguin Pulse Ox Last 24 Hr 97.8 F-98.5 F 73-93 16-18 118-145/58-91 94-100 General: lying in bed, nad, aa0x3 HEENT: sclera anicteric, conjuctiva clear, mmmL Lungs: CTAB Heart; RRR, normal s1/s2, no m/r/g, no JVD Abd: soft, ntnd Ext: L foot slightly cool, non-doppler DP or PT pulses, gradually decreased sensation to light touch below ankle; longitudinal well-healed scar along upper medial thigh; R foot wwp, 2+DP pulse CBC, BMP 07/05/17 22:48 07/06/17 06:00 INR, PTT INR 3.31 (0.82-1.09) H 07/06/17 06:00 Active Medications Albuterol Sulfate (Ventolin 0.083% Nebulizer Soln -) 1 amp NEB RQID [facility] Last Admin: 07/06/17 15:29 Dose: 1 amp Albuterol Sulfate (Ventolin 0.083% Nebulizer Soln -) 1 amp NEB Q4H PRN PRN Reason: SHORT OF BREATH/WHEEZING Atorvastatin Calcium (Lipitor -) 20 mg PO HS [facility] Docusate Sodium (Colace -) 100 mg PO Q8H PRN PRN Reason: CONSTIPATION Heparin Sodium (Porcine) (Heparin -) 1,000 unit IVPUSH PRN PRN PRN Reason: Heparin Heparin Sodium/Dextrose (Heparin Infusion -) 25,000 units in 500 mls @ 24 mls/ hr IVPB TITR JULIET; 1,200 UNIT/HR PRN Reason: Protocol Last Titration: 07/06/17 15:11 Dose: 900 unit/hr, 18 mls/hr Lisinopril (Prinivil) 20 mg PO DAILY [facility] Last Admin: 07/06/17 09:40 Dose: 20 mg Methylprednisolone Sodium Succinate (Solu-Medrol -) 60 mg IVPUSH DAILY [facility] Stop: 07/08/17 10:01 Last Admin: 07/06/17 11:34 Dose: 60 mg Montelukast Sodium (Singulair -) 10 mg PO HS [facility] Morphine Sulfate (Morphine Sulfate) 4 mg IVPUSH Q4H PRN PRN Reason: PAIN LEVEL 6-10 Nicotine (Nicoderm Patch -) 21 mg TD DAILY [facility] Last Admin: 07/06/17 09:40 Dose: 21 mg Pantoprazole Sodium (Protonix -) 40 mg PO DAILY [facility] Last Admin: 07/06/17 09:40 Dose: 40 mg Polyethylene Glycol (Miralax (For Daily Use) -) 17 gm PO DAILY [facility] Last Admin: 07/06/17 11:31 Dose: 17 grams Senna (Senna -) 2 tab PO HS PRN PRN Reason: CONSTIPATION Tiotropium [place] (Spiriva -) 1 puff IH DAILY [facility] Last Admin: 07/06/17 09:40 Dose: 1 puff Verapamil HCl (Calan Sr -) 180 mg PO DAILY [facility] Last Admin: 07/06/17 11:31 Dose: 180 mg ASSESSMENT/PLAN: 66yo woman with PMH of former smoker, COPD, CAD s/p stent, PAD s/p femoral stent /bypass (on Coumadin), and recently discharged home on Wednesday from SNF who presents with acute onset of L foot pain and found to have extensive clot in L superficial femoral/popliteal. #L foot ischemia, on Coumadin, but reports labile INR, per Eddie INR goal 2 -3 -Vascular surgery consulted (Dr. Morgan), plan for OR tomorrow -c/w Heparin gtt -Coumadin held; per Vasc may give FFP pre-op if INR elevated in AM -morphine 4mg q4h prn for pain -Heme consulted #COPD, no acute exacerbation -Pulm consulted, started on short course steroids perioperatively of Solumedrol 60mg IV x 4 doses -c/w home Spiriva, Singulair, Albulterol sapna RQID + Q4H PRN #CAD s/p stent -Cardiology consulted -c/w home Lipitor 20mg HS -Resume Plavix if okay with Vascular #HTN - c/w home lisinopril 20mg qd and verapamil 180mg qd #FEN PO intake lytes wnl Cardiac diet, NPO after midnight except for meds #PPX: on heparin gtt/ Protonix 40mg daily #DISPO: m/s FULL code Visit type - Emergency Visit Emergency Visit: No - New Patient This patient is new to me today: Yes Date on this admission: 07/06/17 - Critical Care Critical Care patient: No
[2017-07-06 08:02] LABS: INR 3.31 (0.82-1.09); PROTHROMBIN TIME (PATIENT) 37.4 SEC (9.7-13.0)
[2017-07-06] MEDS: ALBUTEROL SO4 0.083% IH SOL 2.5 MG/3 ML VIAL.NEB. NEB SCH ×4 (08:14→20:45)
--- NOTE | 2017-07-06 09:14 | SPA.PREOP ---
- PRE-OP NOTE Dx: Occluded LLE bypass below her knee Planned Procedure: Open thrombectomy, LLE angio, possible angioplasty, possible bypass Surgeon: Abrahan Morgan Consent: To be obtained by surgeon after risks, benefits and alternatives explained to patient. Last Vital Signs Temp Pulse Resp BP Pulse Ox 98.2 F 79 18 118/66 94 L 07/06/17 06:23 07/06/17 06:23 07/06/17 06:23 07/06/17 06:23 07/06/17 01:58 Lab Results WBC 8.1 K/mm3 (4.0-10.0) 07/05/17 22:48 RBC 3.80 M/mm3 (3.60-5.2) D 07/05/17 22:48 Hgb 11.3 GM/dL (10.7-15.3) D 07/05/17 22:48 Hct 34.5 % (32.4-45.2) D 07/05/17 22:48 MCV 90.7 fl (80-96) 07/05/17 22:48 MCHC 32.7 g/dl (32.0-36.0) 07/05/17 22:48 RDW 19.9 % (11.6-15.6) H 07/05/17 22:48 Plt Count 293 K/MM3 (134-434) D 07/05/17 22:48 Sodium 141 mmol/L (136-145) 07/05/17 22:45 Potassium 3.7 mmol/L (3.5-5.1) 07/05/17 22:45 Chloride 107 mmol/L (98-107) 07/05/17 22:45 Carbon Dioxide 23 mmol/L (21-32) 07/05/17 22:45 Anion Gap 11 (8-16) 07/05/17 22:45 BUN 21 mg/dL (7-18) H 07/05/17 22:45 Creatinine 1.0 mg/dL (0.55-1.02) 07/05/17 22:45 Random Glucose 127 mg/dL (74-106) H 07/05/17 22:45 Calcium 8.9 mg/dL (8.5-10.1) 07/05/17 22:45 Blood Type A POSITIVE 07/06/17 06:00 Antibody Screen Negative 07/06/17 06:00 INR 3.31 (0.82-1.09) H 07/06/17 06:00 - ASSESSMENT/PLAN Problem List - Problems (1) Arterial occlusion, lower extremity Assessment/Plan: 1. NPO after midnight except po meds 2. GI/DVT PPX 3. Medical optimization / clearance 4. f/u Cardio/Mary Kay and Pulm/Brill Consults 5. f/u repeat INR in AM...if still elevated will need FFP intra-op Code(s): I70.209 - UNSP ATHSCL [place] ARTERIES OF EXTREMITIES, UNSP EXTREMITY (2) COPD exacerbation Code(s): J44.1 - CHRONIC OBSTRUCTIVE PULMONARY DISEASE W (ACUTE) EXACERBATION (3) PAD (peripheral artery disease) Code(s): I73.9 - PERIPHERAL VASCULAR DISEASE, UNSPECIFIED Visit type - Case Type Case Type: ED Admission - Emergency Emergency Visit: Yes ED Registration Date: 07/06/17 Care time: The patient presented to the Emergency Department on the above date and was hospitalized for further evaluation of their emergent condition. - New patient This patient is new to me today: Yes Date on this admission: 07/06/17
[2017-07-06 09:19] LABS: ALBUMIN 3.7 g/dl (3.4-5.0); ANION GAP 11 (8-16); BILIRUBIN,TOTAL 0.2 mg/dL (0.2-1.0); BLOOD UREA NITROGEN 18 mg/dL (7-18); CHLORIDE 107 mmol/L (98-107); CO2 24 mmol/L (21-32); CREATININE 0.9 mg/dL (0.55-1.02); GLUCOSE,RANDOM 92 mg/dL (74-106); MAGNESIUM 2.6 mg/dL (1.8-2.4); PHOSPHOROUS 4.8 mg/dL (2.5-4.9); SGOT/AST 13 U/L (15-37); SGPT/ALT 13 U/L (12-78); SODIUM 142 mmol/L (136-145); TOT PROT 7.1 g/dl (6.4-8.2)
[2017-07-06 09:20] LABS: ALK PHOS 97 U/L (45-117)
[2017-07-06] MEDS ORDERED: PT OWN MED DRAWER 7, Y5N ONE (09:29)
[2017-07-06] MEDS: TIOTROPIUM BROMIDE 18 MCG CAPSULES IH SCH (09:40)
[2017-07-06] MEDS: PANTOPRAZOLE 40 MG TABLET (FP) PO SCH (09:40)
[2017-07-06] MEDS: LISINOPRIL 20 MG TABLET (FP) PO SCH (09:40)
[2017-07-06] MEDS: NICOTINE 21 MG/24 HOURS TOPICAL PATCH TD SCH (09:40)
--- NOTE | 2017-07-06 09:56 | CON.PULM ---
Consult Consult Specialty:: PULMONARY Referred by:: Dr. Mcarthur Reason for Consultation:: pulmonary clearance - History of Present Illness Chief Complaint: left leg pain History of Present Illness: 66yo female with h/o HTN, COPD, CAD, PAD who was admitted for LLE pain. CTA showing an occluded left fem-pop stent with diminished flow. Planned for open thrombectomy, LLE angio, possible angioplasty, possible bypass. Called for pulmonary optimization and clearance. She was recently discharged from rehab, lives alone. Stopped smoking in February after smoking >50 years. Maintained on Spiriva and albuterol nebs which she takes once a day. +chronic cough without wheezing. She does report some dyspnea with exertion. She has 6 steps leading up to the house and she reports dyspnea if she is carrying anything. Does not use oxygen at home. Last time she was on prednisone was in February. 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: Peripheral Neuropathy Cardio/Vascular: Yes: CAD, HTN, Hyperlipdemia, Other (Cardiac stents placed, history of peripheral vascular disease) Pulmonary: Yes: COPD, Other (Former smoker) ...: No Musculoskeletal: Yes: Other (chronic back pain) - Past Surgical History Past Surgical History: Yes: Joint Replacement (left knee), Stent - Alcohol/Substance Use Hx Alcohol Use: No - Smoking History Smoking history: Former smoker Have you smoked in the past 12 months: Yes Aproximately how many cigarettes per day: 2 If you are a former smoker, when did you quit?: 02/2017 Home Medications - Allergies Allergies/Adverse Reactions: Allergies Allergy/AdvReac Type Severity Reaction Status Date / Time No Known Allergies Allergy Verified 07/05/17 22:05 - Home Medications Home Medications: Ambulatory Orders Gabapentin 600 mg PO QID 02/19/17 Montelukast Na [Singulair -] 10 mg PO HS 02/19/17 Verapamil HCl ER [Calan Sr -] 180 mg PO DAILY 02/19/17 Lisinopril [Prinivil] 20 mg PO DAILY #30 tablet 02/28/17 Pantoprazole Sodium [Protonix -] 40 mg PO DAILY #30 tablet.ec 02/28/17 Tiotropium [place] [Spiriva] 1 puff IH DAILY #1 inh 02/28/17 Atorvastatin Ca [Lipitor] 20 mg PO HS tablet 06/05/17 Cefuroxime Axetil [Ceftin -] 500 mg PO Q12H #14 tablet 06/05/17 Clopidogrel Bisulfate [Plavix -] 75 mg PO DAILY tablet 06/05/17 Docusate Sodium [Colace -] 100 mg PO Q8H PRN capsule 06/05/17 Fluconazole [Diflucan -] 200 mg PO DAILY #10 tablet 06/05/17 Nicotine Patch [Nicoderm Patch -] 21 mg TD DAILY patch 06/05/17 Polyethylene Glycol 3350 [Miralax 119 gm Btl -] 17 gm PO DAILY bottle 06/05/17 Sennosides [Senna -] 2 tab PO HS PRN tablet 06/05/17 Warfarin Sodium [Coumadin] 3 mg PO 07/05/17 Warfarin Sodium [Coumadin] 3.5 mg PO 07/05/17 Review of Systems - Review of Systems Constitutional: denies: Chills, Fever Eyes: denies: Recent Change in Vision HENT: reports: Nasal Congestion. denies: Toothache Neck: denies: Stiffness, Tenderness Cardiovascular: reports: Shortness of Breath. denies: Chest Pain, Edema, Palpitations Respiratory: reports: Cough, SOB on Exertion. denies: Hemoptysis, Wheezing Gastrointestinal: denies: Abdominal Pain, Nausea, Vomiting Genitourinary: denies: Dysuria, Hematuria Musculoskeletal: reports: Extremity Pain Neurological: denies: Dizziness, Headache Physical Exam Vital Sings: Vital Signs Temperature 98.2 F 07/06/17 06:23 Pulse Rate 79 07/06/17 06:23 Respiratory Rate 18 07/06/17 06:23 Blood Pressure 118/66 07/06/17 06:23 O2 Sat by Pulse Oximetry (%) 94 L 07/06/17 01:58 Constitutional: Yes: Calm Eyes: Yes: Conjunctiva Clear, EOM Intact HENT: Yes: Atraumatic, Normocephalic Neck: Yes: Supple, Trachea Midline Cardiovascular: Yes: Regular Rate and Rhythm Respiratory: Yes: Rales (right base) ...Clubbing: No Gastrointestinal: Yes: Normal Bowel Sounds, Soft. No: Tenderness Extremities: Yes: Cool, Cyanosis, Other (LLE) Neurological: Yes: Alert, Oriented Labs: CBC, BMP 07/05/17 22:48 07/06/17 06:00 Imaging - Results Chest X-ray: Report Reviewed, Image Reviewed (basilar atelectasis) Problem List - Problems (1) Arterial occlusion, lower extremity Code(s): I70.209 - UNSP ATHSCL [place] ARTERIES OF EXTREMITIES, UNSP EXTREMITY (2) PAD (peripheral artery disease) Code(s): I73.9 - PERIPHERAL VASCULAR DISEASE, UNSPECIFIED (3) COPD (chronic obstructive pulmonary disease) Code(s): J44.9 - CHRONIC OBSTRUCTIVE PULMONARY DISEASE, UNSPECIFIED (4) HTN (hypertension) Code(s): I10 - ESSENTIAL (PRIMARY) HYPERTENSION Qualifiers: Hypertension type: essential hypertension Qualified Code(s): I10 - Essential (primary) hypertension Assessment/Plan LLE Ischemia PAD COPD CAD HTN - will start IV medrol today, will d/c post op provided respiratory status stable - inhaled bronchodilators standing and PRN - room air SpO2 97% - discussed with pt that she is at increased risk for prolonged intubation given her COPD but she accepts the risk - give albuterol neb pre-op - can proceed with planned surgery from pulmonary standpoint Thank you for this consult See Garner MD
[2017-07-06] MEDS: POLYETHYLENE GLYCOL 3350 119 GM BTL PO SCH (11:31)
[2017-07-06] MEDS: VERAPAMIL HCL 180 MG E.R. TABLET (FP) PO SCH (11:31)
[2017-07-06] MEDS: methylPREDNISolone NA SUCC 125 MG/2 ML VIAL IVPUSH SCH (11:34)
--- NOTE | 2017-07-06 12:30 | CONSULT ---
Consult Consult Specialty:: Hematology - History of Present Illness History of Present Illness: 66 year-old female with a PMHx of HTN, HLD, CAD s/p stent, COPD, PAD with left Femoral/Popliteal Thrombectomy/Popliteal Anterior Tibial Bypass (x 2- 02/21 and 03/20/16) with Dr Scott presenting with cold L leg since 7.30pm today. Patient lives alone at home and was brought in by [employer] called by her daughter from [place]. Pt describes the pain as 10/10 from L knee down to toes, with associated coldness of the R feet. There is also associated decreased sensation that has been since the revision 03/20/17. Patient is compliant on her medications, but reported difficulty maintaining therapeutic range with her warfarin (both supra and inadequately therapeutic). She uses 3mg of warfarin on weekdays and 3.5mg over the weekend (last dose yesterday evening), and cannot remember her last INR. Pt ambulates with a walker and has had difficulty bearing weight on the L foot. She also uses plavix. No chest pain, SOB, cough. No syncope, no seizures, blurring of vision or weakness of any part of the body. No dysuria or hematuria. She saw her PCP today and had blood draws prior to noticing the cold feet this eveneing. CTA showing an occluded left fem-pop stent with diminished flow. 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 Cardio/Vascular: Yes: CAD, HTN, Hyperlipdemia, Other (Cardiac stents placed, history of peripheral vascular disease) Pulmonary: Yes: COPD, Other (Former smoker) ...: No Musculoskeletal: Yes: Other (chronic back pain) - Past Surgical History Past Surgical History: Yes: Joint Replacement (left knee), Stent - Alcohol/Substance Use Hx Alcohol Use: No - Smoking History Smoking history: Former smoker Have you smoked in the past 12 months: Yes Aproximately how many cigarettes per day: 2 If you are a former smoker, when did you quit?: 02/2017 Home Medications - Allergies Allergies/Adverse Reactions: Allergies Allergy/AdvReac Type Severity Reaction Status Date / Time No Known Allergies Allergy Verified 07/05/17 22:05 - Home Medications Home Medications: Ambulatory Orders Gabapentin 600 mg PO QID 02/19/17 Montelukast Na [Singulair -] 10 mg PO HS 02/19/17 Verapamil HCl ER [Calan Sr -] 180 mg PO DAILY 02/19/17 Lisinopril [Prinivil] 20 mg PO DAILY #30 tablet 02/28/17 Pantoprazole Sodium [Protonix -] 40 mg PO DAILY #30 tablet.ec 02/28/17 Tiotropium [place] [Spiriva] 1 puff IH DAILY #1 inh 02/28/17 Atorvastatin Ca [Lipitor] 20 mg PO HS tablet 06/05/17 Cefuroxime Axetil [Ceftin -] 500 mg PO Q12H #14 tablet 06/05/17 Clopidogrel Bisulfate [Plavix -] 75 mg PO DAILY tablet 06/05/17 Docusate Sodium [Colace -] 100 mg PO Q8H PRN capsule 06/05/17 Fluconazole [Diflucan -] 200 mg PO DAILY #10 tablet 06/05/17 Nicotine Patch [Nicoderm Patch -] 21 mg TD DAILY patch 06/05/17 Polyethylene Glycol 3350 [Miralax 119 gm Btl -] 17 gm PO DAILY bottle 06/05/17 Sennosides [Senna -] 2 tab PO HS PRN tablet 06/05/17 Warfarin Sodium [Coumadin] 3 mg PO 07/05/17 Warfarin Sodium [Coumadin] 3.5 mg PO 07/05/17 Physical Exam Vital Signs: Vital Signs Temperature 98.2 F 07/06/17 06:23 Pulse Rate 79 07/06/17 06:23 Respiratory Rate 18 07/06/17 06:23 Blood Pressure 118/66 07/06/17 06:23 O2 Sat by Pulse Oximetry (%) 94 L 07/06/17 01:58 Constitutional: Yes: Well Nourished, No Distress, Calm Eyes: Yes: Conjunctiva Clear HENT: Yes: Atraumatic, Normocephalic Neck: Yes: Supple, Trachea Midline Cardiovascular: Yes: Regular Rate and Rhythm Respiratory: Yes: Regular, CTA Bilaterally Gastrointestinal: Yes: Normal Bowel Sounds, Soft Extremities: Yes: Other (cool LLE) Labs: CBC, BMP 07/05/17 22:48 07/06/17 06:00 Assessment/Plan HTN, HLD, CAD s/p stent, COPD, PAD with left Femoral/Popliteal Thrombectomy/ Popliteal Anterior Tibial Bypass (x 2- 02/21 and 03/20/16) CTA showing an occluded left fem-pop stent with diminished flow. Planned for open thrombectomy, LLE angio, possible angioplasty, possible bypass Etiology: From detailed review, seems that the likely etiology is her underlying PAD/vascular anatomy, was a chronic smoker ( for >50y). Nonetheless, will rule out possible hematological causes of arterial thrombosis, though less likely, sent APLS, JAK2, PNH , malignancy. Cardiology eval pending ?any hx of pAF CTA reviewed: recommend GI eval for the noted CBD dilatation prominent than before. Treatment: Unclear INR values in the OP setting if been therapeutic, here INR since yesterday was therapeutic. Was on asa/plavix/coumadin. No role of NOACs. if need be, ?may consider inr goal of 2.5-3.5 pending vascular discretion. Presently, continued on heparin drip, PTT monitoring as per protocol. Prior to OR, would recommend FFP/2SDU platelets hydrate control tender to OR ( unless vascular defers ). Age appropriate malignancy screening in the OP setting.
--- NOTE | 2017-07-06 12:59 | CON.CARD ---
Consult Consult Specialty:: Cardiology Referred by:: Hospitalist Reason for Consultation:: Cardiac evaluation and clearance prior to vascular intervention - History of Present Illness Chief Complaint: Left leg pain History of Present Illness: Patient is a 66 year old female with underlying history of COPD, tobacco use, CAD s/p PCi/stent, hypercholesterolemia, PAD s/p bypass now presents with worsened left lower extremity pain. Her foot is cool on palpation and has decreased sensation. She cannot bear weight on left foot. She has been compliant with Coumadin, Aspirin and Plavix. She has history of PAD, bilateral SFA stent, previous thrombectomy with left popliteal - tibial bypass. She is awaiting another vascular intervention in AM in hopes to salvage her leg. CTA indicated occluded left fem pop stent with diminished three vessel runoff. She denies chest pain, shortness of breath or palpitations. She denies paroxysmal nocturnal dyspnea or orthopnea. She denies fever or chills. She denies nausea, vomiting, diarrhea or abdominal pain. She denies headache or lightheadedness. 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 Cardio/Vascular: Yes: CAD, HTN, Hyperlipdemia, Other (Cardiac stents placed, history of peripheral vascular disease) Pulmonary: Yes: COPD, Other (Former smoker) Musculoskeletal: Yes: Other (chronic back pain) - Past Surgical History Past Surgical History: Yes: Bypass, Joint Replacement (left knee), Stent - Alcohol/Substance Use Hx Alcohol Use: No - Smoking History Smoking history: Former smoker Have you smoked in the past 12 months: Yes Aproximately how many cigarettes per day: 2 If you are a former smoker, when did you quit?: 02/2017 Home Medications - Allergies Allergies/Adverse Reactions: Allergies Allergy/AdvReac Type Severity Reaction Status Date / Time No Known Allergies Allergy Verified 07/05/17 22:05 - Home Medications Home Medications: Ambulatory Orders Gabapentin 600 mg PO QID 02/19/17 Montelukast Na [Singulair -] 10 mg PO HS 02/19/17 Verapamil HCl ER [Calan Sr -] 180 mg PO DAILY 02/19/17 Lisinopril [Prinivil] 20 mg PO DAILY #30 tablet 02/28/17 Pantoprazole Sodium [Protonix -] 40 mg PO DAILY #30 tablet.ec 02/28/17 Tiotropium [place] [Spiriva] 1 puff IH DAILY #1 inh 02/28/17 Atorvastatin Ca [Lipitor] 20 mg PO HS tablet 06/05/17 Cefuroxime Axetil [Ceftin -] 500 mg PO Q12H #14 tablet 06/05/17 Clopidogrel Bisulfate [Plavix -] 75 mg PO DAILY tablet 06/05/17 Docusate Sodium [Colace -] 100 mg PO Q8H PRN capsule 06/05/17 Fluconazole [Diflucan -] 200 mg PO DAILY #10 tablet 06/05/17 Nicotine Patch [Nicoderm Patch -] 21 mg TD DAILY patch 06/05/17 Polyethylene Glycol 3350 [Miralax 119 gm Btl -] 17 gm PO DAILY bottle 06/05/17 Sennosides [Senna -] 2 tab PO HS PRN tablet 06/05/17 Warfarin Sodium [Coumadin] 3 mg PO 07/05/17 Warfarin Sodium [Coumadin] 3.5 mg PO 07/05/17 Review of Systems - Review of Systems Constitutional: denies: Chills, Fever Cardiovascular: denies: Chest Pain, Palpitations, Shortness of Breath Respiratory: denies: Cough, Hemoptysis, Orthopnea, PND, SOB, SOB on Exertion, Wheezing Gastrointestinal: denies: Abdominal Pain, Constipation, Diarrhea, Melena, Nausea , Rectal Bleeding, Vomiting Neurological: denies: Dizziness, Headache, Seizure, Syncope, Weakness Vital Signs: Vital Signs Temperature 98.2 F 07/06/17 06:23 Pulse Rate 79 07/06/17 06:23 Respiratory Rate 18 07/06/17 06:23 Blood Pressure 118/66 07/06/17 06:23 O2 Sat by Pulse Oximetry (%) 94 L 07/06/17 01:58 HENT: Yes: Atraumatic Neck: Yes: Supple Respiratory: Yes: Diminished Gastrointestinal: Yes: Normal Bowel Sounds, Soft. No: Tenderness Cardiovascular: Yes: Regular Rate and Rhythm JVD: No Carotid Bruit: No PMI: Non-Displaced Heart Sounds: Yes: S1, S2. No: Gallop Extremities: Yes: Calf Tenderness, Cool Edema: No Peripheral Pulses WNL: No Peripheral Pulses: 0 Left Doralis Pedis - Other Data Labs, Other Data: CBC, BMP 07/05/17 22:48 07/06/17 06:00 INR, PTT INR 3.31 (0.82-1.09) H 07/06/17 06:00 Troponin, BNP 07/06/17 01:35 Troponin I 0.04 Laboratory Results - last 24 hr 07/05/17 07/05/17 07/05/17 22:45 22:45 22:45 WBC RBC Hgb Hct MCV MCH MCHC RDW Plt Count MPV Neutrophils % Lymphocytes % Monocytes % Eosinophils % Basophils % PT with INR 34.40 H INR 3.04 H PTT (Actin FS) 40.7 H Sodium 141 Potassium 3.7 Chloride 107 Carbon Dioxide 23 Anion Gap 11 BUN 21 H Creatinine 1.0 Creat Clearance w eGFR 55.14 Random Glucose 127 H Calcium 8.9 Phosphorus Magnesium Total Bilirubin 0.2 D AST 13 L ALT 13 Alkaline Phosphatase 98 Creatine Kinase Troponin I Total Protein 7.3 Albumin 3.8 Blood Type Antibody Screen 07/05/17 07/06/17 07/06/17 22:48 01:35 06:00 WBC 8.1 RBC 3.80 D Hgb 11.3 D Hct 34.5 D MCV 90.7 MCH 29.7 MCHC 32.7 RDW 19.9 H Plt Count 293 D MPV 9.3 Neutrophils % 65.0 Lymphocytes % 21.5 D Monocytes % 8.1 Eosinophils % 4.0 Basophils % 1.4 PT with INR 37.40 H INR 3.31 H PTT (Actin FS) Sodium Potassium Chloride Carbon Dioxide Anion Gap BUN Creatinine Creat Clearance w eGFR Random Glucose Calcium Phosphorus Magnesium 1.5 L Total Bilirubin AST ALT Alkaline Phosphatase Creatine Kinase 77 Troponin I 0.04 Total Protein Albumin Blood Type Antibody Screen 07/06/17 07/06/17 07/06/17 06:00 06:00 13:01 WBC RBC Hgb Hct MCV MCH MCHC RDW Plt Count MPV Neutrophils % Lymphocytes % Monocytes % Eosinophils % Basophils % PT with INR INR PTT (Actin FS) 217.1 H Sodium 142 Potassium 4.0 Chloride 107 Carbon Dioxide 24 Anion Gap 11 BUN 18 Creatinine 0.9 Creat Clearance w eGFR > 60 Random Glucose 92 Calcium 9.0 Phosphorus 4.8 Magnesium 2.6 H Total Bilirubin 0.2 AST 13 L ALT 13 Alkaline Phosphatase 97 Creatine Kinase Troponin I Total Protein 7.1 Albumin 3.7 Blood Type A POSITIVE Antibody Screen Negative Imaging - Results Chest X-ray: Report Reviewed (Unremarkable) EKG: Report Reviewed Problem List - Problems (1) Arterial occlusion, lower extremity Code(s): I70.209 - UNSP ATHSCL [place] ARTERIES OF EXTREMITIES, UNSP EXTREMITY (2) CAD (coronary artery disease) Code(s): I25.10 - ATHSCL HEART DISEASE OF [place] CORONARY ARTERY W/O ANG PCTRS Qualifiers: Coronary Disease-Associated Artery/Lesion type: [place] artery [place] vs. transplanted heart: [place] heart Associated angina: without angina Qualified Code(s): I25.10 - Atherosclerotic heart disease of [place] coronary artery without angina pectoris (3) COPD exacerbation Code(s): J44.1 - CHRONIC OBSTRUCTIVE PULMONARY DISEASE W (ACUTE) EXACERBATION (4) PAD (peripheral artery disease) Code(s): I73.9 - PERIPHERAL VASCULAR DISEASE, UNSPECIFIED (5) Paresthesia and pain of left extremity Code(s): M79.609 - PAIN IN UNSPECIFIED LIMB; R20.2 - PARESTHESIA OF SKIN (6) S/P coronary artery stent placement Code(s): Z95.5 - PRESENCE OF CORONARY ANGIOPLASTY IMPLANT AND GRAFT (7) Status post peripheral artery angioplasty with insertion of stent Code(s): Z95.820 - PERIPHERAL VASCULAR ANGIOPLASTY STATUS W IMPLANTS AND GRAFTS (8) HTN (hypertension) Code(s): I10 - ESSENTIAL (PRIMARY) HYPERTENSION Qualifiers: Hypertension type: essential hypertension Qualified Code(s): I10 - Essential (primary) hypertension (9) Hyperlipemia, mixed Code(s): E78.2 - MIXED HYPERLIPIDEMIA Assessment/Plan 1. Peripheral artery disease s/p fem-pop bypass now with recurrent occlusion of stent (history of previous peripheral stent) history of thrombectomy 2. CAD s/p PCI/stent, angina 3. Hypertension 4. Hypercholesterolemia 5. COPD with long standing history of cigarette smoking PLAN: 1. There appears to be no absolute contraindication in proceeding with planned vascular intervention in view of absence of ischemic symptoms, decompensated congestive heart failure or malignant arrhythmia. Recommend post op ECG and cardiac enzymes 2. Continue Lisinopril and Verapamil as tolerated 3. Heparin drip Further plans are to follow pending vascular intervention with possible thrombectomy. If not successful, she may need amputation, but currently reluctant with amputation Guarded Artie Alvarado MD
[2017-07-06] MEDS ORDERED: CLOPIDOGREL BISULFATE 75 MG TABLET (FP) PO SCH (14:30)
--- NOTE | 2017-07-06 17:29 | PN ---
Teaching Attending Note Name of Resident: Connie Armstrong ATTENDING PHYSICIAN STATEMENT I saw and evaluated the patient. I reviewed the resident's note and discussed the case with the resident. I agree with the resident's findings and plan as documented. SUBJECTIVE: Patient complains of pain in her left leg. OBJECTIVE: Vital Signs Period Temp Pulse Resp BP Sys/Olguin Pulse Ox Last 24 Hr 97.8 F-98.5 F 73-93 16-20 102-145/54-91 94-100 HEART: S1S2, RRR LUNGS: Clear ABDOMEN: Soft, non-tender, non-distended, normal BS EXTREMITIES: No edema. Left foot cool with purple discoloration and decreased sensation Laboratory Results - last 24 hr 07/05/17 07/05/17 07/05/17 22:45 22:45 22:45 WBC RBC Hgb Hct MCV MCH MCHC RDW Plt Count MPV Neutrophils % Lymphocytes % Monocytes % Eosinophils % Basophils % PT with INR 34.40 H INR 3.04 H PTT (Actin FS) 40.7 H Sodium 141 Potassium 3.7 Chloride 107 Carbon Dioxide 23 Anion Gap 11 BUN 21 H Creatinine 1.0 Creat Clearance w eGFR 55.14 Random Glucose 127 H Calcium 8.9 Phosphorus Magnesium Total Bilirubin 0.2 D AST 13 L ALT 13 Alkaline Phosphatase 98 Creatine Kinase Troponin I Total Protein 7.3 Albumin 3.8 Blood Type Antibody Screen 07/05/17 07/06/17 07/06/17 22:48 01:35 06:00 WBC 8.1 RBC 3.80 D Hgb 11.3 D Hct 34.5 D MCV 90.7 MCH 29.7 MCHC 32.7 RDW 19.9 H Plt Count 293 D MPV 9.3 Neutrophils % 65.0 Lymphocytes % 21.5 D Monocytes % 8.1 Eosinophils % 4.0 Basophils % 1.4 PT with INR 37.40 H INR 3.31 H PTT (Actin FS) Sodium Potassium Chloride Carbon Dioxide Anion Gap BUN Creatinine Creat Clearance w eGFR Random Glucose Calcium Phosphorus Magnesium 1.5 L Total Bilirubin AST ALT Alkaline Phosphatase Creatine Kinase 77 Troponin I 0.04 Total Protein Albumin Blood Type Antibody Screen 07/06/17 07/06/17 07/06/17 06:00 06:00 13:01 WBC RBC Hgb Hct MCV MCH MCHC RDW Plt Count MPV Neutrophils % Lymphocytes % Monocytes % Eosinophils % Basophils % PT with INR INR PTT (Actin FS) 217.1 H Sodium 142 Potassium 4.0 Chloride 107 Carbon Dioxide 24 Anion Gap 11 BUN 18 Creatinine 0.9 Creat Clearance w eGFR > 60 Random Glucose 92 Calcium 9.0 Phosphorus 4.8 Magnesium 2.6 H Total Bilirubin 0.2 AST 13 L ALT 13 Alkaline Phosphatase 97 Creatine Kinase Troponin I Total Protein 7.1 Albumin 3.7 Blood Type A POSITIVE Antibody Screen Negative Current Medications Generic Name Dose Route Start Last Admin Trade Name Freq PRN Reason Stop Dose Admin Albuterol Sulfate 1 amp 07/06/17 08:00 07/06/17 15:29 Ventolin 0.083% Nebulizer Soln - NEB 1 amp RQID JULIET Administration Albuterol Sulfate 1 amp 07/06/17 10:10 Ventolin 0.083% Nebulizer Soln - NEB Q4H PRN SHORT OF BREATH/WHEEZING Atorvastatin Calcium 20 mg 07/06/17 22:00 Lipitor - PO HS JULIET Docusate Sodium 100 mg 07/06/17 01:41 Colace - PO Q8H PRN CONSTIPATION Heparin Sodium (Porcine) 1,000 unit 07/06/17 00:05 Heparin - IVPUSH PRN PRN Heparin Heparin Sodium/Dextrose 25,000 units in 500 mls @ 24 mls/hr 07/06/17 01:22 15:11 Heparin Infusion - IVPB 900 unit/hr TITR JULIET 18 mls/hr Protocol Titration 1,200 UNIT/HR Lisinopril 20 mg 07/06/17 10:00 07/06/17 09:40 Prinivil PO 20 mg DAILY JULIET Administration Methylprednisolone Sodium Succinate 60 mg 07/06/17 10:15 07/06/17 11:34 Solu-Medrol - IVPUSH 07/08/17 10:01 60 mg DAILY JULIET Administration Montelukast Sodium 10 mg 07/06/17 22:00 Singulair - PO HS JULIET Morphine Sulfate 4 mg 07/06/17 14:29 Morphine Sulfate IVPUSH Q4H PRN PAIN LEVEL 6-10 Nicotine 21 mg 07/06/17 10:00 07/06/17 09:40 Nicoderm Patch - TD 21 mg DAILY JULIET Administration Pantoprazole Sodium 40 mg 07/06/17 10:00 07/06/17 09:40 Protonix - PO 40 mg DAILY JULIET Administration Polyethylene Glycol 17 gm 07/06/17 10:00 07/06/17 11:31 Miralax (For Daily Use) - PO 17 grams DAILY JULIET Administration Senna 2 tab 07/06/17 01:41 Senna - PO HS PRN CONSTIPATION Tiotropium [place] 1 puff 07/06/17 10:00 07/06/17 09:40 Spiriva - IH 1 puff DAILY JULIET Administration Verapamil HCl 180 mg 07/06/17 10:00 07/06/17 11:31 Calan Sr - PO 180 mg DAILY JULIET Administration ASSESSMENT AND PLAN: This is a 66 year old woman with a history of PAD, LLE bypass, CAD, stent, HTN, hyperlipidemia, COPD who presented to the ED with left leg pain. 1. PAD with left foot ischemia - s/p left femoral and popliteal thrombectomy, popliteal anterior tibial bypass 03/20/17 - Now has occluded bypass below left knee - Continue heparin IV drip, Plavix, Lipitor - Coumadin held - Plan for OR tomorrow - Will give FFP tomorrow if INR remains elevated - Cardiology, pulmonary evaluation prior to surgery 2. CAD, history of stents - Continue Plavix, Lipitor 3. COPD - Stable - Continue Singulair, Spiriva, albuterol nebs - SoluMedrol started pre-op 4. HTN - Continue Lisinopril, Calan SR 5. Hyperlipidemia - Continue Lipitor 6. Prolonged QTc 7. Nicotine dependence - Continue nicotine patch
[2017-07-06] MEDS: GABAPENTIN 300 MG CAPSULE (FP) PO SCH (21:20)
[2017-07-06] MEDS ORDERED: ATORVASTATIN CA 20 MG TABLET (FP) PO SCH (22:00)
[2017-07-06] MEDS ORDERED: MONTELUKAST NA 10 MG TABLET PO SCH (22:00)
[2017-07-07] MEDS: HEPARIN INFUSION - 25,000 UNITS/500 ML INFUS.BAG IVPB SCH (01:25)
[2017-07-07] MEDS: morphine SULFATE 4 MG/ML VIAL IVPUSH PRN ×3 (06:16→23:18)
--- NOTE | 2017-07-07 08:09 | PN ---
Physical Exam: SUBJECTIVE: Patient seen and examined. Pain slightly improved with increased Morphine dose. No sob, cp, chest palpitations. OBJECTIVE: Vital Signs Period Temp Pulse Resp BP Sys/Olguin Pulse Ox Last 24 Hr 97.4 F-98.6 F 65-88 18-20 102-132/54-67 96-96 General: lying in bed, nad, aa0x3 HEENT: sclera anicteric, conjuctiva clear, mmm Lungs: CTAB Heart; RRR, normal s1/s2, no m/r/g, no JVD Abd: soft, ntnd Ext: L foot cool with purple discoloration, non-dopplerable DP/PT pulses, gradually decreased sensation to light touch below ankle; longitudinal well- healed scar along upper medial thigh; R foot wwp, 2+DP pulse CBC, BMP 07/06/17 06:00 INR, PTT INR 3.44 (0.82-1.09) H 07/07/17 06:00 Imaging: CT Angio of Abd and pelvis with b/l LE runoff (07/05/17): Diffuse aortoiliac, femoral popliteal and infrapopliteal disease as described above. Overall grossly unchanged exam since March 20, 2017. Occluded left SFA stent with essentially no infrapopliteal flow except through a diminutive flow in the peroneal artery which is occluded proximally. Nonflow limiting dissection (versus bypass graft - less likely) in the right external iliac artery with the true lumen supplying the SFA and the false lumen supplying the deep femoral artery MRI unchanged in appearance since the prior exam. Right SFA stent seen with intimal hyperplasia predominantly resulting in less than 50% stenosis except distally where there is suggestion of high degree of stenosis in the range of 50-70% coupled with at least 50% stenosis in the right popliteal artery and two-vessel runoff via the right anterior tibial artery and diminutive flow in right peroneal artery. Tiny gallstone abdominal the gallbladder with no CT evidence of cholecystitis. Dilated CBD up to 1.1 cm multiple prominent than the prior exam coupled with diffuse pancreatic ductal dilatation sparing the tail but no evidence of obstructing mass. Correlate with LFTs and bilirubin level. MRCP may be obtained for further evaluation if clinically indicated. 3.4 cm right renal cyst and 3 mm nonobstructing left renal stone. Active Medications Albuterol Sulfate (Ventolin 0.083% Nebulizer Soln -) 1 amp NEB RQID [facility] Last Admin: 07/06/17 20:45 Dose: 1 amp Albuterol Sulfate (Ventolin 0.083% Nebulizer Soln -) 1 amp NEB Q4H PRN PRN Reason: SHORT OF BREATH/WHEEZING Atorvastatin Calcium (Lipitor -) 20 mg PO HS [facility] Last Admin: 07/06/17 21:00 Dose: 20 mg Docusate Sodium (Colace -) 100 mg PO Q8H PRN PRN Reason: CONSTIPATION Gabapentin (Neurontin -) 600 mg PO QID [facility] Last Admin: 07/06/17 21:20 Dose: 600 mg Heparin Sodium (Porcine) (Heparin -) 1,000 unit IVPUSH PRN PRN PRN Reason: Heparin Heparin Sodium/Dextrose (Heparin Infusion -) 25,000 units in 500 mls @ 24 mls/ hr IVPB TITR JULIET; 1,200 UNIT/HR PRN Reason: Protocol Stop: 07/07/17 09:00 Last Admin: 07/07/17 01:25 Dose: Not Given Lisinopril (Prinivil) 20 mg PO DAILY [facility] Last Admin: 07/06/17 09:40 Dose: 20 mg Methylprednisolone Sodium Succinate (Solu-Medrol -) 60 mg IVPUSH DAILY [facility] Stop: 07/08/17 10:01 Last Admin: 07/06/17 11:34 Dose: 60 mg Montelukast Sodium (Singulair -) 10 mg PO HS [facility] Last Admin: 07/06/17 21:00 Dose: 10 mg Morphine Sulfate (Morphine Sulfate) 4 mg IVPUSH Q4H PRN PRN Reason: PAIN LEVEL 6-10 Last Admin: 07/07/17 06:16 Dose: 4 mg Nicotine (Nicoderm Patch -) 21 mg TD DAILY [facility] Last Admin: 07/06/17 09:40 Dose: 21 mg Pantoprazole Sodium (Protonix -) 40 mg PO DAILY [facility] Last Admin: 07/06/17 09:40 Dose: 40 mg Polyethylene Glycol (Miralax (For Daily Use) -) 17 gm PO DAILY [facility] Last Admin: 07/06/17 11:31 Dose: 17 grams Senna (Senna -) 2 tab PO HS PRN PRN Reason: CONSTIPATION Tiotropium [place] (Spiriva -) 1 puff IH DAILY [facility] Last Admin: 07/06/17 09:40 Dose: 1 puff Verapamil HCl (Calan Sr -) 180 mg PO DAILY JULIET Last Admin: 07/06/17 11:31 Dose: 180 mg ASSESSMENT/PLAN: 66yo woman with PMH of former smoker, COPD, CAD s/p stent, PAD s/p left femoral/ popliteal thrombectomy and popliteal anterior tibial bypass 03/20/17 (on Coumadin ), and recently discharged home on Wednesday from SNF who presents with acute onset of L foot pain and found to have extensive clot in L superficial femoral/ popliteal. #L foot ischemia, on Coumadin, with labile INR, per Eddie INR goal 2-3 -Vascular surgery consulted (Dr. Morgan), plan for OR this AM -c/w Heparin gtt -Coumadin held; INR still elevated, will give FFP and possibly platelets intra- operatively -morphine 4mg q4h prn for pain -Heme consulted, hypercoagulable w/u in progress #COPD, no acute exacerbation -Pulm consulted, started on short course steroids perioperatively of Solumedrol 60mg IV x 4 doses -c/w home Spiriva, Singulair, Albulterol sapna RQID + Q4H PRN #CAD s/p stent -Cardiology consulted -c/w home Lipitor 20mg HS -Resume Plavix if okay with Vascular #HTN - c/w home lisinopril 20mg qd and verapamil 180mg qd #FEN PO intake lytes wnl NPO, resume Cardiac diet after surgery #PPX: on heparin gtt/ Protonix 40mg daily d/w Dr. Lyubov Armstrong MD PGY1 - Internal Medicine Visit type - Emergency Visit Emergency Visit: No - New Patient This patient is new to me today: No - Critical Care Critical Care patient: No
[2017-07-07] MEDS: ALBUTEROL SO4 0.083% IH SOL 2.5 MG/3 ML VIAL.NEB. NEB SCH ×4 (08:13→21:45)
[2017-07-07 08:24] LABS: INR 3.44 (0.82-1.09); PROTHROMBIN TIME (PATIENT) 38.9 SEC (9.7-13.0)
[2017-07-07] MEDS: TIOTROPIUM BROMIDE 18 MCG CAPSULES IH SCH (09:49)
[2017-07-07] MEDS: GABAPENTIN 300 MG CAPSULE (FP) PO SCH ×3 (09:49→23:18)
[2017-07-07] MEDS: LISINOPRIL 20 MG TABLET (FP) PO SCH (09:49)
[2017-07-07] MEDS: VERAPAMIL HCL 180 MG E.R. TABLET (FP) PO SCH (09:53)
[2017-07-07] MEDS: POLYETHYLENE GLYCOL 3350 119 GM BTL PO SCH (10:04)
[2017-07-07] MEDS: NICOTINE 21 MG/24 HOURS TOPICAL PATCH TD SCH (10:04)
[2017-07-07] MEDS: PANTOPRAZOLE 40 MG TABLET (FP) PO SCH (10:04)
[2017-07-07] MEDS: methylPREDNISolone NA SUCC 125 MG/2 ML VIAL IVPUSH SCH (10:04)
--- NOTE | 2017-07-07 10:36 | EKG ---
Test Reason : Blood Pressure : / mmHG Vent. Rate : 084 BPM Atrial Rate : 084 BPM P-R Int : 140 ms QRS Dur : 136 ms QT Int : 452 ms P-R-T Axes : 052 -08 137 degrees QTc Int : 534 ms NORMAL SINUS RHYTHM LEFT BUNDLE BRANCH BLOCK ABNORMAL ECG WHEN COMPARED WITH ECG OF 20-MAR-2017 09:31, NO SIGNIFICANT CHANGE WAS FOUND Confirmed by ESTHER AUGUSTE MD ([id number]) on 07/07/2017 10:35:46 AM Referred By: Confirmed By:ESTHER AUGUSTE MD
[2017-07-07] MEDS ORDERED: ONDANSETRON 4 MG/2 ML VIAL IVPUSH PRN ×2 (10:39→15:38)
[2017-07-07] MEDS ORDERED: LIDOCAINE HCL 1%, 10 MG/ML (20ML VIAL) ONE (10:41)
[2017-07-07] MEDS ORDERED: HEPARIN NA (PORCINE) 5,000 UNITS/ML 1ML VIAL ONE ×3 (10:41→13:38)
[2017-07-07] MEDS ORDERED: LACTATED RINGERS SOLUTION 1,000 ML IV SCH ×3 (10:45→18:17)
[2017-07-07] MEDS ORDERED: PROPOFOL 20 ML ONE (11:21)
[2017-07-07] MEDS ORDERED: MIDAZOLAM HCL 2 MG/2 ML SINGLE DOSE VIAL ONE (11:21)
[2017-07-07] MEDS ORDERED: fentaNYL CITRATE 250 MCG/5 ML VIAL ONE (11:21)
[2017-07-07] MEDS ORDERED: LIDOCAINE HCL/PF 2% SDV 5ML VIAL ONE (11:21)
[2017-07-07] MEDS ORDERED: ceFAZolin SODIUM 1 GM VIAL ONE ×2 (11:45→20:37)
[2017-07-07] MEDS: ceFAZolin SODIUM 1 GM VIAL IVPB ONE ×2 (11:46→20:15)
[2017-07-07] MEDS ORDERED: SODIUM CHLORIDE 0.9% P/F 10 ML VIAL IJ ONE ×2 (11:46→13:39)
--- NOTE | 2017-07-07 12:19 | PN ---
Teaching Attending Note Name of Resident: Connie Armstrong ATTENDING PHYSICIAN STATEMENT I saw and evaluated the patient. I reviewed the resident's note and discussed the case with the resident. I agree with the resident's findings and plan as documented. SUBJECTIVE: Pain in left leg has improved slightly with increased dose of morphine. OBJECTIVE: Vital Signs Period Temp Pulse Resp BP Sys/Olguin Pulse Ox Last 24 Hr 97.4 F-98.6 F 65-87 18-20 102-132/55-67 96 HEART: S1S2, RRR LUNGS: Clear ABDOMEN: Soft, non-tender, non-distended, normal BS EXTREMITIES: No edema. Left foot cool with purple discoloration and decreased sensation Laboratory Results - last 24 hr 07/06/17 07/06/17 07/07/17 13:01 19:45 06:00 PT with INR 38.90 H INR 3.44 H PTT (Actin FS) 217.1 H 97.8 H D Current Medications Generic Name Dose Route Start Last Admin Trade Name Freq PRN Reason Stop Dose Admin Albuterol Sulfate 1 amp 07/06/17 08:00 07/07/17 08:13 Ventolin 0.083% Nebulizer Soln - NEB 1 amp RQID JULIET Administration Albuterol Sulfate 1 amp 07/06/17 10:10 Ventolin 0.083% Nebulizer Soln - NEB Q4H PRN SHORT OF BREATH/WHEEZING Atorvastatin Calcium 20 mg 07/06/17 22:00 07/06/17 21:00 Lipitor - PO 20 mg HS JULIET Administration Docusate Sodium 100 mg 07/06/17 01:41 Colace - PO Q8H PRN CONSTIPATION Fentanyl 50 mcg 07/07/17 10:39 Sublimaze Injection - IVPUSH [id number] PRN PAIN-PACU ORDER X 4 DOSES ONLY Gabapentin 600 mg 07/06/17 22:00 07/07/17 09:49 Neurontin - PO 600 mg QID JULIET Administration Heparin Sodium (Porcine) 1,000 unit 07/06/17 00:05 Heparin - IVPUSH PRN PRN Heparin Lactated Ringer's 1,000 mls @ 125 mls/hr 07/07/17 10:45 Lactated Ringers Solution IV ASDIR JULIET Lisinopril 20 mg 07/06/17 10:00 07/07/17 09:49 Prinivil PO 20 mg DAILY JULIET Administration Methylprednisolone Sodium Succinate 60 mg 07/06/17 10:15 07/07/17 10:04 Solu-Medrol - IVPUSH 07/08/17 10:01 60 mg DAILY JULIET Administration Montelukast Sodium 10 mg 07/06/17 22:00 07/06/17 21:00 Singulair - PO 10 mg HS JULIET Administration Morphine Sulfate 4 mg 07/06/17 14:29 07/07/17 09:42 Morphine Sulfate IVPUSH 4 mg Q4H PRN Administration PAIN LEVEL 6-10 Nicotine 21 mg 07/06/17 10:00 07/07/17 10:04 Nicoderm Patch - TD Not Given DAILY JULIET Ondansetron HCl 4 mg 07/07/17 10:39 Zofran Injection IVPUSH Q6H PRN NAUSEA AND/OR VOMITING Pantoprazole Sodium 40 mg 07/06/17 10:00 07/07/17 10:04 Protonix - PO 40 mg DAILY JULIET Administration Polyethylene Glycol 17 gm 07/06/17 10:00 07/07/17 10:04 Miralax (For Daily Use) - PO Not Given DAILY JULIET Senna 2 tab 07/06/17 01:41 Senna - PO HS PRN CONSTIPATION Tiotropium [place] 1 puff 07/06/17 10:00 07/07/17 09:49 Spiriva - IH 1 puff DAILY JULIET Administration Verapamil HCl 180 mg 07/06/17 10:00 07/07/17 09:53 Calan Sr - PO 180 mg DAILY JULIET Administration ASSESSMENT AND PLAN: This is a 66 year old woman with a history of PAD, LLE bypass, CAD, stent, HTN, hyperlipidemia, COPD who presented to the ED with left leg pain. 1. PAD with left foot ischemia - s/p left femoral and popliteal thrombectomy, popliteal anterior tibial bypass 03/20/17 - Now has occluded bypass below left knee - Continue heparin IV drip, Plavix, Lipitor - Coumadin held - Plan for thrombectomy today - FFP and platelets ordered for OR 2. CAD, history of stents - Continue Plavix, Lipitor 3. COPD - Stable - Continue Singulair, Spiriva, albuterol nebs - SoluMedrol started pre-op 4. HTN - Continue Lisinopril, Calan SR 5. Hyperlipidemia - Continue Lipitor 6. Prolonged QTc 7. Nicotine dependence - Continue nicotine patch
[2017-07-07] MEDS ORDERED: DEXAMETHASONE SOD PHOSPHATE 4 MG/1 ML VIAL ONE (12:25)
--- NOTE | 2017-07-07 13:06 | PN ---
Progress Note, Physician History of Present Illness: Patient is off the floor at angio suite. - Current Medication List Current Medications: Active Medications Albuterol Sulfate (Ventolin 0.083% Nebulizer Soln -) 1 amp NEB RQID [facility] Last Admin: 07/07/17 08:13 Dose: 1 amp Albuterol Sulfate (Ventolin 0.083% Nebulizer Soln -) 1 amp NEB Q4H PRN PRN Reason: SHORT OF BREATH/WHEEZING Atorvastatin Calcium (Lipitor -) 20 mg PO HS [facility] Last Admin: 07/06/17 21:00 Dose: 20 mg Docusate Sodium (Colace -) 100 mg PO Q8H PRN PRN Reason: CONSTIPATION Fentanyl (Sublimaze Injection -) 50 mcg IVPUSH [id number] PRN PRN Reason: PAIN-PACU ORDER X 4 DOSES ONLY Gabapentin (Neurontin -) 600 mg PO QID [facility] Last Admin: 07/07/17 09:49 Dose: 600 mg Heparin Sodium (Porcine) (Heparin -) 1,000 unit IVPUSH PRN PRN PRN Reason: Heparin Lactated Ringer's (Lactated Ringers Solution) 1,000 mls @ 125 mls/hr IV ASDIR [facility] Lisinopril (Prinivil) 20 mg PO DAILY [facility] Last Admin: 07/07/17 09:49 Dose: 20 mg Methylprednisolone Sodium Succinate (Solu-Medrol -) 60 mg IVPUSH DAILY [facility] Stop: 07/08/17 10:01 Last Admin: 07/07/17 10:04 Dose: 60 mg Montelukast Sodium (Singulair -) 10 mg PO [facility] Last Admin: 07/06/17 21:00 Dose: 10 mg Morphine Sulfate (Morphine Sulfate) 4 mg IVPUSH Q4H PRN PRN Reason: PAIN LEVEL 6-10 Last Admin: 07/07/17 09:42 Dose: 4 mg Nicotine (Nicoderm Patch -) 21 mg TD DAILY [facility] Last Admin: 07/07/17 10:04 Dose: Not Given Ondansetron HCl (Zofran Injection) 4 mg IVPUSH Q6H PRN PRN Reason: NAUSEA AND/OR VOMITING Pantoprazole Sodium (Protonix -) 40 mg PO DAILY [facility] Last Admin: 07/07/17 10:04 Dose: 40 mg Polyethylene Glycol (Miralax (For Daily Use) -) 17 gm PO DAILY [facility] Last Admin: 07/07/17 10:04 Dose: Not Given Senna (Senna -) 2 tab PO HS PRN PRN Reason: CONSTIPATION Tiotropium [place] (Spiriva -) 1 puff IH DAILY [facility] Last Admin: 07/07/17 09:49 Dose: 1 puff Verapamil HCl (Calan Sr -) 180 mg PO DAILY [facility] Last Admin: 07/07/17 09:53 Dose: 180 mg - Objective Vital Signs: Vital Signs Temperature 97.9 F 07/07/17 09:30 Pulse Rate 80 07/07/17 09:30 Respiratory Rate 20 07/07/17 09:30 Blood Pressure 112/67 07/07/17 09:30 O2 Sat by Pulse Oximetry (%) 96 07/06/17 21:00 Labs: CBC, BMP 07/05/17 22:48 07/06/17 06:00 INR, PTT INR 3.44 (0.82-1.09) H 07/07/17 06:00 Assessment/Plan 1. Peripheral artery disease s/p fem-pop bypass now with recurrent occlusion of stent (history of previous peripheral stent) history of thrombectomy 2. CAD s/p PCI/stent, angina 3. Hypertension 4. Hypercholesterolemia 5. COPD with long standing history of cigarette smoking PLAN: 1. There appears to be no absolute contraindication in proceeding with planned vascular intervention in view of absence of ischemic symptoms, decompensated congestive heart failure or malignant arrhythmia. Recommend post op ECG and cardiac enzymes 2. Continue Lisinopril and Verapamil as tolerated 3. Heparin drip Further plans are to follow pending vascular intervention with possible thrombectomy. If not successful, she may need amputation, but currently reluctant with amputation
[2017-07-07] MEDS ORDERED: THROMBIN (BOVINE) 5,000 UNIT VIAL TP ONE ×2 (13:35→13:41)
[2017-07-07] MEDS ORDERED: POVIDONE-IODINE OINTMENT 10% - 28.4 GM TUBE ONE (14:19)
[2017-07-07] MEDS ORDERED: ALBUTEROL SO4 0.083% IH SOL 2.5 MG/3 ML VIAL.NEB. NEB PRN (15:38)
[2017-07-07] MEDS ORDERED: HEPARIN NA (PORCINE) 5,000 UNITS/ML 1ML VIAL IVPUSH PRN (15:38)
[2017-07-07] MEDS ORDERED: DOCUSATE SODIUM 100 MG CAPSULE (FP) PO PRN (15:38)
[2017-07-07 16:16] LABS: BASO % 0.1 % (0-2.0); HEMATOCRIT 26.4 % (32.4-45.2); HEMOGLOBIN 8.5 GM/dL (10.7-15.3); LYMPH % 3.5 % (8-40); MCH 29.7 pg (25.7-33.7); MCHC 32.1 g/dl (32.0-36.0); MEAN CELL VOLUME 92.7 fl (80-96); MEAN PLT VOLUME 9.7 fl (7.5-11.1); MONO % 2.8 % (3.8-10.2); NEUT % 93.6 % (42.8-82.8); PLATELET COUNT 228 K/MM3 (134-434); RBC 2.84 M/mm3 (3.60-5.2); RDW 19.8 % (11.6-15.6); WHITE BLOOD COUNT 9.9 K/mm3 (4.0-10.0)
--- NOTE | 2017-07-07 17:56 | OP ---
Operative Note - Note: Operative Date: 07/07/17 Pre-Operative Diagnosis: Thrombosed bypass graft left leg Operation: Left femoral popliteal bypass with PTFE. Angioplasty distal anterior tibial artery. Thrombectomy tibial bypass graft. Findings: Patent popliteal tibial graft with narrowed distal AT outflow to foot. Occlusion of femoral and popliteal arteries. Implants: 6 mm PTFE ringed graft Post-Operative Diagnosis: Same as Pre-op Surgeon: Abrahan Morgan [employer] Operator: Yonathan Cook Anesthesiologist/SLABBER: Deana Benites Anesthesia: General Estimated Blood Loss (mls): 250
[2017-07-07 19:41] LABS: INR 2.04 (0.82-1.09); PROTHROMBIN TIME (PATIENT) 23.1 SEC (9.7-13.0)
[2017-07-07 19:44] LABS: ACTIVATED PTT 41.1 SECONDS (26.9-34.4)
--- NOTE | 2017-07-07 21:29 | CONSULT ---
Consult Consult Specialty:: Pulm/CCM Reason for Consultation:: s/p LLE thrombectomy and stent placement - History of Present Illness Chief Complaint: surgical site pain History of Present Illness: 66 caron with PMHx of COPD, smoking, CAD s/p PCi/stent, HLD, PAD s/p bilateral SFA stent, thrombectomy and left popliteal - tibial bypass,who presented with increased LLE pain and decreased sensation. On CTA was found to have occlusion of her lt fem-pop graft. Today she is s/p Lt fem-pop bypass with PTFE, angioplasty of distal anterior tibial artery and thrombectomy of tibial bypass graft. FFP and plts given prior to OR. In OR EBL 200cc, IV 1100cc, UOP 125, 1U PRBC given. She was transferred to ICU for post-op management. Rec'd in ICU A+O x3, BP 100/47, HR 62, O2 sat 97% on 2L NC. Rt DB faintly palpable but with strong doppler pulse, Lt PT very faint doppler pulse. Lt foot pink, warm, toe tips cool. C/o 7/10 pain at surgical site treated with morphine. 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 Cardio/Vascular: Yes: CAD, HTN, Hyperlipdemia, Other (Cardiac stents placed, history of peripheral vascular disease) Pulmonary: Yes: COPD, Other (Former smoker) ...: No Musculoskeletal: Yes: Other (chronic back pain) - Past Surgical History Past Surgical History: Yes: Bypass, Joint Replacement (left knee), Stent - Alcohol/Substance Use Hx Alcohol Use: No - Smoking History Smoking history: Former smoker Have you smoked in the past 12 months: Yes Aproximately how many cigarettes per day: 2 If you are a former smoker, when did you quit?: 02/2017 Home Medications - Allergies Allergies/Adverse Reactions: Allergies Allergy/AdvReac Type Severity Reaction Status Date / Time No Known Allergies Allergy Verified 07/05/17 22:05 - Home Medications Home Medications: Ambulatory Orders Gabapentin 600 mg PO QID 02/19/17 Montelukast Na [Singulair -] 10 mg PO HS 02/19/17 Verapamil HCl ER [Calan Sr -] 180 mg PO DAILY 02/19/17 Lisinopril [Prinivil] 20 mg PO DAILY #30 tablet 02/28/17 Pantoprazole Sodium [Protonix -] 40 mg PO DAILY #30 tablet.ec 02/28/17 Tiotropium Girdler [Spiriva] 1 puff IH DAILY #1 inh 02/28/17 Atorvastatin Ca [Lipitor] 20 mg PO HS tablet 06/05/17 Cefuroxime Axetil [Ceftin -] 500 mg PO Q12H #14 tablet 06/05/17 Clopidogrel Bisulfate [Plavix -] 75 mg PO DAILY tablet 06/05/17 Docusate Sodium [Colace -] 100 mg PO Q8H PRN capsule 06/05/17 Fluconazole [Diflucan -] 200 mg PO DAILY #10 tablet 06/05/17 Nicotine Patch [Nicoderm Patch -] 21 mg TD DAILY patch 06/05/17 Polyethylene Glycol 3350 [Miralax 119 gm Btl -] 17 gm PO DAILY bottle 06/05/17 Sennosides [Senna -] 2 tab PO HS PRN tablet 06/05/17 Warfarin Sodium [Coumadin] 3 mg PO 07/05/17 Warfarin Sodium [Coumadin] 3.5 mg PO 07/05/17 Review of Systems - Review of Systems Constitutional: reports: No Symptoms Eyes: reports: No Symptoms HENT: reports: No Symptoms Neck: reports: No Symptoms Cardiovascular: reports: No Symptoms Respiratory: reports: No Symptoms Gastrointestinal: reports: No Symptoms Genitourinary: reports: No Symptoms Musculoskeletal: reports: Extremity Pain Neurological: reports: Numbness (in LLE) Endocrine: reports: No Symptoms Psychiatric: reports: No Symptoms Physical Exam Vital Signs: Vital Signs Temperature 98.9 F 07/07/17 15:15 Pulse Rate 63 07/07/17 17:45 Respiratory Rate 18 07/07/17 17:45 Blood Pressure 92/48 07/07/17 17:45 O2 Sat by Pulse Oximetry (%) 96 07/07/17 17:45 Intake & Output 07/04/17 07/05/17 07/06/17 07/07/17 23:59 23:59 23:59 23:59 Intake Total 846 2035 Output Total 1125 Balance 846 910 Weight 67.132 kg 67.132 kg Constitutional: Yes: No Distress, Calm Eyes: Yes: WNL, PERRL HENT: Yes: Atraumatic, Normocephalic Neck: Yes: Supple, Trachea Midline Cardiovascular: Yes: Bradycardia, S1, S2 Respiratory: Yes: CTA Bilaterally, On Nasal O2 Gastrointestinal: Yes: Normal Bowel Sounds, Soft Renal/: Yes: Bowman Present Extremities: Yes: Other (RLE warm; + pulse LLE pink and warm with doppler DP and faintly doppler PT) Edema: No Peripheral Pulses WNL: Yes (LUE doppler pulses) Wound/Incision: Yes: Dressing Dry and Intact, Other (small amt bloody drainage) Neurological: Yes: Alert, Oriented Psychiatric: Yes: WNL Labs: CBC, BMP 07/07/17 16:00 07/06/17 06:00 CBC,CMP WBC 9.9 K/mm3 (4.0-10.0) 07/07/17 16:00 RBC 2.84 M/mm3 (3.60-5.2) L D 07/07/17 16:00 Hgb 8.5 GM/dL (10.7-15.3) L D 07/07/17 16:00 Hct 26.4 % (32.4-45.2) L D 07/07/17 16:00 MCV 92.7 fl (80-96) 07/07/17 16:00 MCH 29.7 pg (25.7-33.7) 07/07/17 16:00 MCHC 32.1 g/dl (32.0-36.0) 07/07/17 16:00 RDW 19.8 % (11.6-15.6) H 07/07/17 16:00 Plt Count 228 K/MM3 (134-434) D 07/07/17 16:00 MPV 9.7 fl (7.5-11.1) 07/07/17 16:00 Neutrophils % 93.6 % (42.8-82.8) H D 07/07/17 16:00 Lymphocytes % 3.5 % (8-40) L D 07/07/17 16:00 Monocytes % 2.8 % (3.8-10.2) L 07/07/17 16:00 Eosinophils % 0.0 % (0-4.5) D 07/07/17 16:00 Basophils % 0.1 % (0-2.0) 07/07/17 16:00 Sodium 142 mmol/L (136-145) 07/06/17 06:00 Potassium 4.0 mmol/L (3.5-5.1) 07/06/17 06:00 Chloride 107 mmol/L (98-107) 07/06/17 06:00 Carbon Dioxide 24 mmol/L (21-32) 07/06/17 06:00 Anion Gap 11 (8-16) 07/06/17 06:00 BUN 18 mg/dL (7-18) 07/06/17 06:00 Creatinine 0.9 mg/dL (0.55-1.02) 07/06/17 06:00 Creat Clearance w eGFR > 60 (>60) 07/06/17 06:00 Random Glucose 92 mg/dL (74-106) 07/06/17 06:00 Calcium 9.0 mg/dL (8.5-10.1) 07/06/17 06:00 Phosphorus 4.8 mg/dL (2.5-4.9) 07/06/17 06:00 Magnesium 2.6 mg/dL (1.8-2.4) H 07/06/17 06:00 Total Bilirubin 0.2 mg/dL (0.2-1.0) 07/06/17 06:00 AST 13 U/L (15-37) L 07/06/17 06:00 ALT 13 U/L (12-78) 07/06/17 06:00 Alkaline Phosphatase 97 U/L (45-117) 07/06/17 06:00 Creatine Kinase 77 IU/L (26-192) 07/06/17 01:35 Troponin I 0.04 ng/ml (0.00-0.05) 07/06/17 01:35 Total Protein 7.1 g/dl (6.4-8.2) 07/06/17 06:00 Albumin 3.7 g/dl (3.4-5.0) 07/06/17 06:00 Current Medications Albuterol Sulfate (Ventolin 0.083% Nebulizer Soln -) 1 amp NEB Q4H PRN PRN Reason: SHORT OF BREATH/WHEEZING Albuterol Sulfate (Ventolin 0.083% Nebulizer Soln -) 1 amp NEB RQID [facility] Last Admin: 07/07/17 21:45 Dose: 1 amp Atorvastatin Calcium (Lipitor -) 20 mg PO HS [facility] Chlorhexidine Gluconate (Hibiclens For Decolonization -) 1 applic TP HS [facility] Clopidogrel Bisulfate (Plavix -) 75 mg PO DAILY [facility] Docusate Sodium (Colace -) 100 mg PO Q8H PRN PRN Reason: CONSTIPATION Gabapentin (Neurontin -) 600 mg PO QID [facility] Cefazolin Sodium 1 gm/ (Dextrose) 50 mls @ 100 mls/hr IVPB Q8H-IV [facility] Stop: 07/08/17 17:59 Lactated Ringer's (Lactated Ringers Solution) 1,000 mls @ 75 mls/hr IV ASDIR [facility] Lisinopril (Prinivil) 20 mg PO DAILY [facility] Methylprednisolone Sodium Succinate (Solu-Medrol -) 60 mg IVPUSH DAILY [facility] Stop: 07/08/17 10:01 Montelukast Sodium (Singulair -) 10 mg PO HS [facility] Morphine Sulfate (Morphine Sulfate) 4 mg IVPUSH Q4H PRN PRN Reason: PAIN LEVEL 7-10 Morphine Sulfate (Morphine Sulfate) 2 mg IVPUSH Q4H PRN PRN Reason: PAIN LEVEL 4 - 6 Mupirocin (Bactroban Ointment (For Decolonization) -) 1 applic NS BID [facility] Stop: 07/12/17 21:59 Nicotine (Nicoderm Patch -) 21 mg TD DAILY [facility] Ondansetron HCl (Zofran Injection) 4 mg IVPUSH Q6H PRN PRN Reason: NAUSEA AND/OR VOMITING Pantoprazole Sodium (Protonix -) 40 mg PO DAILY [facility] Polyethylene Glycol (Miralax (For Daily Use) -) 17 gm PO DAILY [facility] Senna (Senna -) 2 tab PO HS PRN PRN Reason: CONSTIPATION Tiotropium Girdler (Spiriva -) 1 puff IH DAILY [facility] Verapamil HCl (Calan Sr -) 180 mg PO DAILY [facility] Imaging - Results Chest X-ray: Report Reviewed Problem List - Problems (1) Arterial occlusion, lower extremity Code(s): I70.209 - UNSP ATHSCL [place] ARTERIES OF EXTREMITIES, UNSP EXTREMITY (2) CAD (coronary artery disease) Code(s): I25.10 - ATHSCL HEART DISEASE OF [place] CORONARY ARTERY W/O ANG PCTRS Qualifiers: Coronary Disease-Associated Artery/Lesion type: [place] artery [place] vs. transplanted heart: [place] heart Associated angina: without angina Qualified Code(s): I25.10 - Atherosclerotic heart disease of [place] coronary artery without angina pectoris (3) COPD exacerbation Code(s): J44.1 - CHRONIC OBSTRUCTIVE PULMONARY DISEASE W (ACUTE) EXACERBATION (4) Cellulitis Code(s): L03.90 - CELLULITIS, UNSPECIFIED (5) Left leg weakness Code(s): M62.81 - MUSCLE WEAKNESS (GENERALIZED) (6) Leg pain, left Code(s): M79.605 - PAIN IN LEFT LEG (7) PAD (peripheral artery disease) Code(s): I73.9 - PERIPHERAL VASCULAR DISEASE, UNSPECIFIED (8) Pain Code(s): R52 - PAIN, UNSPECIFIED (9) Paresthesia and pain of left extremity Code(s): M79.609 - PAIN IN UNSPECIFIED LIMB; R20.2 - PARESTHESIA OF SKIN (10) Peripheral vascular disease Code(s): I73.9 - PERIPHERAL VASCULAR DISEASE, UNSPECIFIED (11) Status post peripheral artery angioplasty with insertion of stent Code(s): Z95.820 - PERIPHERAL VASCULAR ANGIOPLASTY STATUS W IMPLANTS AND GRAFTS (12) Hyperlipemia, mixed Code(s): E78.2 - MIXED HYPERLIPIDEMIA Assessment/Plan 66 caron with PMHx of COPD, smoking, CAD s/p PCi/stent, HLD, PAD s/p bilateral SFA stent, thrombectomy and left popliteal - tibial bypass s/p Lt fem-pop bypass with PTFE, angioplasty of distal anterior tibial artery and thrombectomy of tibial bypass graft. Plan: -Q1 LLE DP and PT pulse check -Monitor surgical site for bleeding -Pain management with prn morphine -Will hold antihypertensives til am as MAP in 60's -Monitor coags and CBC -Restart Heparin in am -NC O2 for O2 sat>92% -Cont COPD regimen -Cont statins -As diet as CUCA [place] [facility] time 35 mins
[2017-07-07] MEDS ORDERED: morphine SULFATE 4 MG/ML VIAL IVPUSH PRN (21:32)
[2017-07-07] MEDS ORDERED: MONTELUKAST NA 10 MG TABLET PO SCH (22:00)
[2017-07-07] MEDS ORDERED: SENNOSIDES 8.6MG TABLET (FP) PO PRN (22:00)
[2017-07-07] MEDS ORDERED: ATORVASTATIN CA 20 MG TABLET (FP) PO SCH (22:00)
[2017-07-07] MEDS ORDERED: DOPAMINE HCL 400,000 MCG in SODIUM CHLORIDE 240 ML IV SCH (22:00)
[2017-07-07] MEDS ORDERED: CHLORHEXIDINE GLUCONATE 4% CLEANSER FOR DECOLONIZATION TP SCH (22:00)
[2017-07-07] MEDS: CEFAZOLIN 1 GM in DEXTROSE 5%-WATER - 50 ML IVPB SCH (23:13)
[2017-07-07] MEDS: MUPIROCIN 2% TOPICAL OINTMENT FOR DECOLONIZATION NS SCH (23:23)
[2017-07-08] MEDS: CEFAZOLIN 1 GM in DEXTROSE 5%-WATER - 50 ML IVPB SCH ×3 (02:56→17:11)
[2017-07-08] MEDS ORDERED: ceFAZolin SODIUM 1 GM VIAL ONE ×4 (03:37→22:30)
[2017-07-08] MEDS ORDERED: DEXTROSE 5%-WATER - 50 ML IVPB ONE ×3 (03:38→22:30)
[2017-07-08] MEDS: morphine SULFATE 4 MG/ML VIAL IVPUSH PRN ×5 (03:55→20:48)
[2017-07-08 06:29] LABS: HEMATOCRIT 25.8 % (32.4-45.2); HEMOGLOBIN 8.5 GM/dL (10.7-15.3); MCHC 33.1 g/dl (32.0-36.0); MEAN CELL VOLUME 90.5 fl (80-96); MEAN PLT VOLUME 9.8 fl (7.5-11.1); PLATELET COUNT 216 K/MM3 (134-434); RBC 2.85 M/mm3 (3.60-5.2); RDW 19.3 % (11.6-15.6); WHITE BLOOD COUNT 10.6 K/mm3 (4.0-10.0)
--- NOTE | 2017-07-08 07:21 | SURG ---
Surgery Biological Lab Technician Note Biological Lab Technician: Yonathan Cook PA-C Date of Service: 07/07/17 Diagnosis: Thrombosed bypass graft left leg Procedure: Left femoral popliteal bypass with PTFE. Angioplasty distal anterior tibial artery. Thrombectomy tibial bypass graft I was present for the entirety of the operative procedure. For further detail, please refer to operative report. Visit type - Case Type Case Type: ED Admission - Emergency Emergency Visit: Yes ED Registration Date: 07/06/17 Care time: The patient presented to the Emergency Department on the above date and was hospitalized for further evaluation of their emergent condition. - New patient This patient is new to me today: Yes Date on this admission: 07/08/17
[2017-07-08] MEDS: ALBUTEROL SO4 0.083% IH SOL 2.5 MG/3 ML VIAL.NEB. NEB SCH ×4 (08:15→21:26)
[2017-07-08] MEDS ORDERED: PT OWN MED DRAWER 7, Y5N ONE ×3 (08:25→16:21)
--- NOTE | 2017-07-08 08:27 | PN ---
Progress Note (short form) - Note Progress Note: POD 1 No c/o VSS Groin dressing clean and dry, calf with small bloody drainage Foot warm, strong DP/PT Hgb 8.5 Stable overnight, s/p left fem-pop bypass Bedrest Resume Coumadin
[2017-07-08] MEDS ORDERED: DEXTROSE 5%-WATER - 100 ML IVPB ONE (09:03)
--- NOTE | 2017-07-08 09:24 | PN ---
Physical Exam: SUBJECTIVE: Patient seen and examined in ICU. Continues to have L leg pain, but improved. No sob, cp, fever, chills. OBJECTIVE: Vital Signs Period Temp Pulse Resp BP Sys/Olguin Pulse Ox Last 24 Hr 97.9 F-98.9 F 46-80 10-20 85-135/43-75 91-100 General: aaox3, nad Heart: rrr, normal s1/s2 Chest: CTAB Abd: soft, ntnd Ext: L foot wwp, palpable DP and PT pulses CBC, BMP 07/08/17 06:03 07/06/17 06:00 Hepatic Panel Total Bilirubin 0.2 mg/dL (0.2-1.0) 07/06/17 06:00 AST 13 U/L (15-37) L 07/06/17 06:00 ALT 13 U/L (12-78) 07/06/17 06:00 Alkaline Phosphatase 97 U/L (45-117) 07/06/17 06:00 Albumin 3.7 g/dl (3.4-5.0) 07/06/17 06:00 INR, PTT INR 2.04 (0.82-1.09) H 07/08/17 06:11 Active Medications Acetaminophen (Tylenol -) 650 mg PO Q6H PRN PRN Reason: FEVER Albuterol Sulfate (Ventolin 0.083% Nebulizer Soln -) 1 amp NEB Q4H PRN PRN Reason: SHORT OF BREATH/WHEEZING Albuterol Sulfate (Ventolin 0.083% Nebulizer Soln -) 1 amp NEB RQID [facility] Atorvastatin Calcium (Lipitor -) 20 mg PO HS [facility] Chlorhexidine Gluconate (Hibiclens For Decolonization -) 1 applic TP HS [facility] Clopidogrel Bisulfate (Plavix -) 75 mg PO DAILY [facility] Docusate Sodium (Colace -) 100 mg PO Q8H PRN PRN Reason: CONSTIPATION Fluticasone Propionate (Flonase -) 1 spray NS DAILY [facility] Gabapentin (Neurontin -) 600 mg PO QID [facility] Last Admin: 07/08/17 17:12 Dose: 600 mg Cefazolin Sodium 1 gm/ (Dextrose) 50 mls @ 100 mls/hr IVPB Q8H-IV [facility] Last Admin: 07/08/17 17:11 Dose: 100 mls/hr Lactated Ringer's (Lactated Ringers Solution) 1,000 mls @ 75 mls/hr IV ASDIR [facility] Last Admin: 07/08/17 16:17 Dose: 75 mls/hr Lisinopril (Prinivil) 20 mg PO DAILY [facility] Montelukast Sodium (Singulair -) 10 mg PO HS [facility] Morphine Sulfate (Morphine Sulfate) 2 mg IVPUSH Q4H PRN PRN Reason: PAIN LEVEL 7 - 10 Last Admin: 07/08/17 16:15 Dose: 2 mg Mupirocin (Bactroban Ointment (For Decolonization) -) 1 applic NS BID [facility] Stop: 07/12/17 21:59 Nicotine (Nicoderm Patch -) 21 mg TD DAILY [facility] Ondansetron HCl (Zofran Injection) 4 mg IVPUSH Q6H PRN PRN Reason: NAUSEA AND/OR VOMITING Oxycodone HCl (Roxicodone -) 5 mg PO Q4H PRN PRN Reason: PAIN LEVEL 1-3 Oxycodone HCl (Roxicodone -) 10 mg PO Q6H PRN PRN Reason: PAIN LEVEL 4 - 6 Pantoprazole Sodium (Protonix -) 40 mg PO DAILY [facility] Polyethylene Glycol (Miralax (For Daily Use) -) 17 gm PO DAILY [facility] Senna (Senna -) 2 tab PO HS PRN PRN Reason: CONSTIPATION Tiotropium [place] (Spiriva -) 1 puff IH DAILY [facility] Verapamil HCl (Calan Sr -) 180 mg PO DAILY [facility] Warfarin Sodium (Coumadin -) 2 mg PO DAILY@1800 [facility] Last Admin: 07/08/17 17:11 Dose: 2 mg ASSESSMENT/PLAN: 66yo woman with PMH of former smoker, COPD, CAD s/p stent, PAD s/p left femoral/ popliteal thrombectomy and popliteal anterior tibial bypass 03/20/17 (on Coumadin ), and recently discharged home on Wednesday from SNF who presents with acute onset of L foot pain and found to have extensive clot in L superficial femoral/ popliteal. #POD1 s/p L femoral popliteal bypass with synthetic PTFE graft, angioplasty of distal anterior tibial artery, and thrombectomy tibial bypass graft -Torie-operative Ancef -resume Coumadin at 2mg with daily INR (goal 2-3) -c/w Plavix and Lipitor -Pain control with oxy 5mg Q4H PRN for pain 1-3; oxy 10mg Q6H PRN for pain 4-6, Morphine 2mg IVP Q4H PRN pain 7-10 -Bowel regiment -Heme consulted, hypercoagulable w/u in progress #COPD, no acute exacerbation, s/p torie-operative Solumedrol -Pulm consulted -c/w home Spiriva, Singulair, Albulterol sapna RQID + Q4H PRN -O2 therapy to maintain SpaO2 >90% #CAD s/p stent -Cardiology consulted -c/w home Lipitor 20mg HS, Plavix #HTN - c/w home lisinopril 20mg qd and verapamil 180mg qd #Nicotine dependence - Nicotine patch #FEN LR@ 75cc lytes wnl Cardiac diet #PPX: Coumadin/ Protonix 40mg daily #DISPO: transfer to m/s FULL code d/w Dr. Lyubov Armstrong MD PGY1 - Internal Medicine Visit type - Emergency Visit Emergency Visit: No - New Patient This patient is new to me today: No - Critical Care Critical Care patient: Yes Total Critical Care Time (in minutes): 40 Critical Care Statement: The care of this patient involved high complexity decision making to prevent further life threatening deterioration of the patient 's condition and/or to evaluate & treat vital organ system(s) failure or risk of failure.
[2017-07-08] MEDS: GABAPENTIN 300 MG CAPSULE (FP) PO SCH ×3 (09:31→22:33)
--- NOTE | 2017-07-08 09:44 | PN ---
Progress Note, Physician History of Present Illness: POD#1 s/p left fem-pop bypass, denies chest pain or dyspnea - Current Medication List Current Medications: Active Medications Albuterol Sulfate (Ventolin 0.083% Nebulizer Soln -) 1 amp NEB Q4H PRN PRN Reason: SHORT OF BREATH/WHEEZING Albuterol Sulfate (Ventolin 0.083% Nebulizer Soln -) [address] [facility] Last Admin: 07/08/17 08:15 Dose: 1 amp Atorvastatin Calcium (Lipitor -) 20 mg PO [facility] Last Admin: 07/07/17 23:18 Dose: 20 mg Chlorhexidine Gluconate (Hibiclens For Decolonization -) 1 applic TP [facility] Last Admin: 07/07/17 23:23 Dose: 1 applic Clopidogrel Bisulfate (Plavix -) [address] [facility] Last Admin: 07/08/17 09:20 Dose: 75 mg Docusate Sodium (Colace -) 100 mg PO Q8H PRN PRN Reason: CONSTIPATION Gabapentin (Neurontin -) [address] [facility] Last Admin: 07/08/17 09:31 Dose: 600 mg Cefazolin Sodium 1 gm/ (Dextrose) 50 mls @ 100 mls/hr IVPB Q8H-IV [facility] Stop: 07/08/17 17:59 Last Admin: 07/08/17 09:15 Dose: 100 mls/hr Lactated Ringer's (Lactated Ringers Solution) 1,000 mls @ 75 mls/hr IV ASDIR [facility] Last Admin: 07/07/17 23:23 Dose: 75 mls/hr Lisinopril (Prinivil) [address] [facility] Last Admin: 07/08/17 09:20 Dose: 20 mg Methylprednisolone Sodium Succinate (Solu-Medrol -) [address] [facility] Stop: 07/08/17 10:01 Last Admin: 07/08/17 09:21 Dose: 60 mg Montelukast Sodium (Singulair -) 10 mg PO [facility] Last Admin: 07/07/17 23:18 Dose: 10 mg Morphine Sulfate (Morphine Sulfate) 4 mg IVPUSH Q4H PRN PRN Reason: PAIN LEVEL 7-10 Last Admin: 07/08/17 08:29 Dose: 4 mg Morphine Sulfate (Morphine Sulfate) 2 mg IVPUSH Q4H PRN PRN Reason: PAIN LEVEL 4 - 6 Mupirocin (Bactroban Ointment (For Decolonization) -) [address] [facility] Stop: 07/12/17 21:59 Last Admin: 07/07/17 23:23 Dose: 1 applic Nicotine (Nicoderm Patch -) [address] [facility] Last Admin: 07/08/17 09:17 Dose: 21 mg Ondansetron HCl (Zofran Injection) 4 mg IVPUSH Q6H PRN PRN Reason: NAUSEA AND/OR VOMITING Last Admin: 07/07/17 23:18 Dose: 4 mg Pantoprazole Sodium (Protonix -) [address] [facility] Last Admin: 07/08/17 09:20 Dose: 40 mg Polyethylene Glycol (Miralax (For Daily Use) -) [address] [facility] Senna (Senna -) 2 tab PO HS PRN PRN Reason: CONSTIPATION Tiotropium [place] (Spiriva -) [address] [facility] Verapamil HCl (Calan Sr -) [address] [facility] Last Admin: 07/08/17 09:31 Dose: 180 mg - Objective Vital Signs: Vital Signs Temperature 97.4 F L 07/08/17 09:00 Pulse Rate 68 07/08/17 07:28 Respiratory Rate 16 07/08/17 07:28 Blood Pressure 126/48 07/08/17 07:28 O2 Sat by Pulse Oximetry (%) 98 07/08/17 07:23 Constitutional: Yes: No Distress, Calm, Thin Neck: Yes: Supple Cardiovascular: Yes: Regular Rate and Rhythm Respiratory: Yes: Regular, Diminished, On Nasal O2 Gastrointestinal: Yes: Normal Bowel Sounds, Soft Edema: No Labs: CBC, BMP 07/08/17 06:03 07/06/17 06:00 INR, PTT INR 2.04 (0.82-1.09) H D 07/07/17 18:45 - ....Imaging EKG: Report Reviewed (NSR @ 84 LBBB) Problem List - Problems (1) Atherosclerosis of bypass graft of left lower extremity with rest pain Code(s): I70.322 - ATHSCL UNSP TYPE BYPASS OF THE EXTRM W REST PAIN, LEFT LEG (2) Arterial occlusion, lower extremity Code(s): I70.209 - UNSP ATHSCL [place] ARTERIES OF EXTREMITIES, UNSP EXTREMITY (3) CAD (coronary artery disease) Code(s): I25.10 - ATHSCL HEART DISEASE OF [place] CORONARY ARTERY W/O ANG PCTRS Qualifiers: Coronary Disease-Associated Artery/Lesion type: [place] artery [place] vs. transplanted heart: [place] heart Associated angina: without angina Qualified Code(s): I25.10 - Atherosclerotic heart disease of [place] coronary artery without angina pectoris (4) Peripheral vascular disease Code(s): I73.9 - PERIPHERAL VASCULAR DISEASE, UNSPECIFIED (5) S/P coronary artery stent placement Code(s): Z95.5 - PRESENCE OF CORONARY ANGIOPLASTY IMPLANT AND GRAFT (6) Status post peripheral artery angioplasty with insertion of stent Code(s): Z95.820 - PERIPHERAL VASCULAR ANGIOPLASTY STATUS W IMPLANTS AND GRAFTS (7) COPD (chronic obstructive pulmonary disease) Code(s): J44.9 - CHRONIC OBSTRUCTIVE PULMONARY DISEASE, UNSPECIFIED Qualifiers: COPD type: unspecified COPD Qualified Code(s): J44.9 - Chronic obstructive pulmonary disease, unspecified (8) HTN (hypertension) Code(s): I10 - ESSENTIAL (PRIMARY) HYPERTENSION Qualifiers: Hypertension type: essential hypertension Qualified Code(s): I10 - Essential (primary) hypertension (9) Hyperlipemia, mixed Code(s): E78.2 - MIXED HYPERLIPIDEMIA Assessment/Plan 1. Peripheral artery disease s/p fem-pop bypass with thrombosed left leg bypass s/p left femoral popliteal bypass with PTFE. Angioplasty distal anterior tibial artery stable CV-[place] 2. CAD s/p PCI/stent, angina 3. Hypertension 4. Hypercholesterolemia 5. COPD with long standing history of cigarette smoking PLAN: 1. Continue Lipitor 20 qhs, Lisinopril 20 qd and Verapamil 180 qd as tolerated 2. Resumed Plavix and coumadin per INR 3. IV steroids with GI protection, BD, Singulair, O2 as needed
[2017-07-08 09:53] LABS: INR 2.04 (0.82-1.09)
[2017-07-08] MEDS ORDERED: TIOTROPIUM BROMIDE 18 MCG CAPSULES IH SCH (10:00)
[2017-07-08] MEDS ORDERED: methylPREDNISolone NA SUCC 125 MG/2 ML VIAL IVPUSH SCH (10:00)
[2017-07-08] MEDS ORDERED: PANTOPRAZOLE 40 MG TABLET (FP) PO SCH (10:00)
[2017-07-08] MEDS ORDERED: NICOTINE 21 MG/24 HOURS TOPICAL PATCH TD SCH (10:00)
[2017-07-08] MEDS ORDERED: POLYETHYLENE GLYCOL 3350 119 GM BTL PO SCH (10:00)
[2017-07-08] MEDS ORDERED: VERAPAMIL HCL 180 MG E.R. TABLET (FP) PO SCH (10:00)
[2017-07-08] MEDS ORDERED: CLOPIDOGREL BISULFATE 75 MG TABLET (FP) PO SCH (10:00)
[2017-07-08] MEDS ORDERED: LISINOPRIL 20 MG TABLET (FP) PO SCH (10:00)
[2017-07-08] MEDS: MUPIROCIN 2% TOPICAL OINTMENT FOR DECOLONIZATION NS SCH ×2 (10:13→22:35)
[2017-07-08] MEDS ORDERED: ACETAMINOPHEN 325 MG TABLET (FP) PO PRN ×2 (11:53→13:20)
[2017-07-08] MEDS ORDERED: FLUTICASONE PROP 0.05% 16 GM NASAL SPRAY NS SCH (12:00)
--- NOTE | 2017-07-08 12:55 | PN ---
Teaching Attending Note Name of Resident: Lambert Morrissey ATTENDING PHYSICIAN STATEMENT I saw and evaluated the patient. I reviewed the resident's note and discussed the case with the resident. I agree with the resident's findings and plan as documented. SUBJECTIVE: Patient seen and examined in the ICU. Awake and alert, Mild discomfort at the surgical site. No CP or SOB. Seen by vascular this AM. Intake & Output 07/05/17 07/06/17 07/07/17 07/08/17 23:59 23:59 23:59 23:59 Intake Total 846 2235 725 Output Total 1425 500 Balance 846 810 225 Weight 148 lb 148 lb Last Vital Signs Temp Pulse Resp BP Pulse Ox 97.4 F L 92 H 16 121/79 98 07/08/17 09:00 07/08/17 12:43 07/08/17 12:43 07/08/17 12:43 07/08/17 07:23 Active Medications Acetaminophen (Tylenol -) 650 mg PO Q6H PRN PRN Reason: PAIN Last Admin: 07/08/17 12:35 Dose: 650 mg Albuterol Sulfate (Ventolin 0.083% Nebulizer Soln -) 1 amp NEB Q4H PRN PRN Reason: SHORT OF BREATH/WHEEZING Albuterol Sulfate (Ventolin 0.083% Nebulizer Soln -) 1 amp NEB RQID [facility] Last Admin: 07/08/17 08:15 Dose: 1 amp Atorvastatin Calcium (Lipitor -) 20 mg PO HS [facility] Last Admin: 07/07/17 23:18 Dose: 20 mg Chlorhexidine Gluconate (Hibiclens For Decolonization -) 1 applic TP [facility] Last Admin: 07/07/17 23:23 Dose: 1 applic Clopidogrel Bisulfate (Plavix -) 75 mg PO DAILY [facility] Last Admin: 07/08/17 09:20 Dose: 75 mg Docusate Sodium (Colace -) 100 mg PO Q8H PRN PRN Reason: CONSTIPATION Fluticasone Propionate (Flonase -) 1 spray NS DAILY [facility] Gabapentin (Neurontin -) 600 mg PO QID [facility] Last Admin: 07/08/17 09:31 Dose: 600 mg Cefazolin Sodium 1 gm/ (Dextrose) 50 mls @ 100 mls/hr IVPB Q8H-IV [facility] Stop: 07/08/17 17:59 Last Admin: 07/08/17 09:15 Dose: 100 mls/hr Lactated Ringer's (Lactated Ringers Solution) 1,000 mls @ 75 mls/hr IV ASDIR [facility] Last Admin: 07/07/17 23:23 Dose: 75 mls/hr Lisinopril (Prinivil) 20 mg PO DAILY [facility] Last Admin: 07/08/17 09:20 Dose: 20 mg Montelukast Sodium (Singulair -) 10 mg PO HS [facility] Last Admin: 07/07/17 23:18 Dose: 10 mg Morphine Sulfate (Morphine Sulfate) 4 mg IVPUSH Q4H PRN PRN Reason: PAIN LEVEL 7-10 Last Admin: 07/08/17 12:34 Dose: 4 mg Morphine Sulfate (Morphine Sulfate) 2 mg IVPUSH Q4H PRN PRN Reason: PAIN LEVEL 4 - 6 Mupirocin (Bactroban Ointment (For Decolonization) -) 1 applic NS BID [facility] Stop: 07/12/17 21:59 Last Admin: 07/08/17 10:13 Dose: 1 applic Nicotine (Nicoderm Patch -) 21 mg TD DAILY [facility] Last Admin: 07/08/17 09:17 Dose: 21 mg Ondansetron HCl (Zofran Injection) 4 mg IVPUSH Q6H PRN PRN Reason: NAUSEA AND/OR VOMITING Last Admin: 07/07/17 23:18 Dose: 4 mg Pantoprazole Sodium (Protonix -) 40 mg PO DAILY [facility] Last Admin: 07/08/17 09:20 Dose: 40 mg Polyethylene Glycol (Miralax (For Daily Use) -) 17 gm PO DAILY [facility] Last Admin: 07/08/17 11:50 Dose: 17 grams Senna (Senna -) 2 tab PO HS PRN PRN Reason: CONSTIPATION Tiotropium [place] (Spiriva -) 1 puff IH DAILY [facility] Last Admin: 07/08/17 10:29 Dose: 1 puff Verapamil HCl (Calan Sr -) 180 mg PO DAILY [facility] Last Admin: 07/08/17 09:31 Dose: 180 mg Warfarin Sodium (Coumadin -) 2 mg PO DAILY@1800 [facility] Constitutional: Yes: Awake and alert, NAD Eyes: Yes: WNL, PERRL HENT: Yes: Atraumatic, Normocephalic Neck: Yes: Supple, Trachea Midline Cardiovascular: Yes: S1, S2 Respiratory: Yes: few scattered rhonchi, On Nasal O2 Gastrointestinal: Yes: Normal Bowel Sounds, Soft Renal/: Yes: [place] Present Extremities: Yes: Other (RLE warm; + pulse LLE pink and warm with doppler DP and faintly doppler PT) Edema: No Peripheral Pulses WNL: Yes (LUE doppler pulses) Wound/Incision: Yes: Dressing Dry and Intact, Other (small amt bloody drainage) Neurological: Yes: Alert, Oriented Psychiatric: Yes: WNL Labs: Laboratory Results - last 24 hr 07/06/17 07/07/17 07/07/17 06:00 16:00 16:00 WBC 9.9 RBC 2.84 L D Hgb 8.5 L D Hct 26.4 L D MCV 92.7 MCH 29.7 MCHC 32.1 RDW 19.8 H Plt Count 228 D MPV 9.7 Neutrophils % 93.6 H D Lymphocytes % 3.5 L D Monocytes % 2.8 L Eosinophils % 0.0 D Basophils % 0.1 PT with INR Cancelled INR Cancelled PTT (Actin FS) Cancelled Crossmatch IS Only See Detail 07/07/17 07/08/17 07/08/17 18:45 06:03 06:03 WBC 10.6 H RBC 2.85 L Hgb 8.5 L Hct 25.8 L MCV 90.5 MCH 30.0 MCHC 33.1 RDW 19.3 H Plt Count 216 MPV 9.8 Neutrophils % Lymphocytes % Monocytes % Eosinophils % Basophils % PT with INR 23.10 H INR 2.04 H D PTT (Actin FS) 41.1 H D 31.7 Crossmatch IS Only 07/08/17 06:11 WBC RBC Hgb Hct MCV MCH MCHC RDW Plt Count MPV Neutrophils % Lymphocytes % Monocytes % Eosinophils % Basophils % PT with INR 23.00 H INR 2.04 H PTT (Actin FS) Crossmatch IS Only Problem List - Problems (1) Arterial occlusion, lower extremity Code(s): I70.209 - UNSP ATHSCL [place] ARTERIES OF EXTREMITIES, UNSP EXTREMITY (2) CAD (coronary artery disease) Code(s): I25.10 - ATHSCL HEART DISEASE OF [place] CORONARY ARTERY W/O ANG PCTRS Qualifiers: Coronary Disease-Associated Artery/Lesion type: [place] artery [place] vs. transplanted heart: [place] heart Associated angina: without angina Qualified Code(s): I25.10 - Atherosclerotic heart disease of [place] coronary artery without angina pectoris (3) COPD exacerbation Code(s): J44.1 - CHRONIC OBSTRUCTIVE PULMONARY DISEASE W (ACUTE) EXACERBATION (4) Cellulitis Code(s): L03.90 - CELLULITIS, UNSPECIFIED (5) Left leg weakness Code(s): M62.81 - MUSCLE WEAKNESS (GENERALIZED) (6) Leg pain, left Code(s): M79.605 - PAIN IN LEFT LEG (7) PAD (peripheral artery disease) Code(s): I73.9 - PERIPHERAL VASCULAR DISEASE, UNSPECIFIED (8) Pain Code(s): R52 - PAIN, UNSPECIFIED (9) Paresthesia and pain of left extremity Code(s): M79.609 - PAIN IN UNSPECIFIED LIMB; R20.2 - PARESTHESIA OF SKIN (10) Peripheral vascular disease Code(s): I73.9 - PERIPHERAL VASCULAR DISEASE, UNSPECIFIED (11) Status post peripheral artery angioplasty with insertion of stent Code(s): Z95.820 - PERIPHERAL VASCULAR ANGIOPLASTY STATUS W IMPLANTS AND GRAFTS (12) Hyperlipemia, mixed Code(s): E78.2 - MIXED HYPERLIPIDEMIA Assessment/Plan POD #1 Left femoral popliteal bypass with PTFE. Angioplasty distal anterior tibial artery. Thrombectomy tibial bypass graft. COPD, active smoker CAD S/P PCI/stent HPL PAD S/P bilateral SFA stent Plan: -Follow dopplers -Monitor surgical site for bleeding -Pain management with prn morphine -BP monitoring -Monitor coags and CBC -AC with Coumadin -Supplemental O2 to maintain saturation -Cont COPD regimen -Cont statins -PO as tolerated Dr Chacon Critical care time spent in reviewing chart, evaluating patient and formulating plan - 36 minutes.
--- NOTE | 2017-07-08 13:12 | PN ---
Physical Exam: SUBJECTIVE: Patient seen and examined in ICU. No acute events overnight. Patient denies chest pain. No fevers, chills, chest pain or shortness of breath. OBJECTIVE: Vital Signs Period Temp Pulse Resp BP Sys/Olguin Pulse Ox Last 24 Hr 97.4 F-98.9 F 46-92 10-20 85-143/43-79 91-100 GENERAL: The patient is awake, alert, and fully oriented, in no acute distress. HEAD: Normal with no signs of trauma. EYES: PERRL, extraocular movements intact, sclera anicteric, conjunctiva clear. LUNGS: Breath sounds equal, clear to auscultation bilaterally, no wheezes, no crackles, no accessory muscle use. HEART: Regular rate and rhythm, S1, S2 without murmur, rub or gallop. ABDOMEN: Soft, nontender, nondistended, normoactive bowel sounds, no guarding, no rebound, no hepatosplenomegaly, no masses. EXTREMITIES: Left leg has surgical dressing, is pink and warm with palpable dp and pt pulses. NEUROLOGICAL: Cranial nerves II through XII grossly intact. Normal speech, gait not observed. Laboratory Results - last 24 hr 07/06/17 07/07/17 07/07/17 06:00 16:00 16:00 WBC 9.9 RBC 2.84 L D Hgb 8.5 L D Hct 26.4 L D MCV 92.7 MCH 29.7 MCHC 32.1 RDW 19.8 H Plt Count 228 D MPV 9.7 Neutrophils % 93.6 H D Lymphocytes % 3.5 L D Monocytes % 2.8 L Eosinophils % 0.0 D Basophils % 0.1 PT with INR Cancelled INR Cancelled PTT (Actin FS) Cancelled Crossmatch IS Only See Detail 07/07/17 07/08/17 07/08/17 18:45 06:03 06:03 WBC 10.6 H RBC 2.85 L Hgb 8.5 L Hct 25.8 L MCV 90.5 MCH 30.0 MCHC 33.1 RDW 19.3 H Plt Count 216 MPV 9.8 Neutrophils % Lymphocytes % Monocytes % Eosinophils % Basophils % PT with INR 23.10 H INR 2.04 H D PTT (Actin FS) 41.1 H D 31.7 Crossmatch IS Only 05/03/18 06:11 WBC RBC Hgb Hct MCV MCH MCHC RDW Plt Count MPV Neutrophils % Lymphocytes % Monocytes % Eosinophils % Basophils % PT with INR 23.00 H INR 2.04 H PTT (Actin FS) Crossmatch IS Only Active Medications Generic Name Dose Route Start Last Admin Trade Name Freq PRN Reason Stop Dose Admin Acetaminophen 650 mg 07/08/17 11:53 07/08/17 12:35 Tylenol - PO 650 mg Q6H PRN Administration PAIN Albuterol Sulfate 1 amp 07/07/17 15:38 Ventolin 0.083% Nebulizer Soln - NEB Q4H PRN SHORT OF BREATH/WHEEZING Albuterol Sulfate 1 amp 07/07/17 16:00 07/08/17 08:15 Ventolin 0.083% Nebulizer Soln - NEB 1 amp RQID [facility] Administration Atorvastatin Calcium 20 mg 07/07/17 22:00 07/07/17 23:18 Lipitor - PO 20 mg HS [facility] Administration Chlorhexidine Gluconate 1 applic 07/07/17 22:00 07/07/17 23:23 Hibiclens For Decolonization - TP 1 applic HS [facility] Administration Clopidogrel Bisulfate 75 mg 07/08/17 10:00 07/08/17 09:20 Plavix - PO 75 mg DAILY [facility] Administration Docusate Sodium 100 mg 07/07/17 15:38 Colace - PO Q8H PRN CONSTIPATION Fluticasone Propionate 1 spray 07/08/17 12:00 Flonase - NS DAILY [facility] Gabapentin 600 mg 07/07/17 18:00 07/08/17 09:31 Neurontin - PO 600 mg QID [facility] Administration Cefazolin Sodium 1 gm/ 50 mls @ 100 mls/hr 07/07/17 18:00 07/08/17 09:15 Dextrose IVPB 07/08/17 17:59 100 mls/hr Q8H-IV [facility] Administration Lactated Ringer's 1,000 mls @ 75 mls/hr 07/07/17 18:17 07/07/17 23:23 Lactated Ringers Solution IV 75 mls/hr ASDIR [facility] Administration Lisinopril 20 mg 07/08/17 10:00 07/08/17 09:20 Prinivil PO 20 mg DAILY [facility] Administration Montelukast Sodium 10 mg 07/07/17 22:00 07/07/17 23:18 Singulair - PO 10 mg HS [facility] Administration Morphine Sulfate 4 mg 07/07/17 15:38 07/08/17 12:34 Morphine Sulfate IVPUSH 4 mg Q4H PRN Administration PAIN LEVEL 7-10 Morphine Sulfate 2 mg 07/07/17 21:32 Morphine Sulfate IVPUSH Q4H PRN PAIN LEVEL 4 - 6 Mupirocin 1 applic 07/07/17 22:00 07/08/17 10:13 Bactroban Ointment (For Decolonization) - NS 07/12/17 21:59 1 applic BID [facility] Administration Nicotine 21 mg 07/08/17 10:00 07/08/17 09:17 Nicoderm Patch - TD 21 mg DAILY [facility] Administration Ondansetron HCl 4 mg 07/07/17 15:38 07/07/17 23:18 Zofran Injection IVPUSH 4 mg Q6H PRN Administration NAUSEA AND/OR VOMITING Pantoprazole Sodium 40 mg 07/08/17 10:00 07/08/17 09:20 Protonix - PO 40 mg DAILY [facility] Administration Polyethylene Glycol 17 gm 07/08/17 10:00 07/08/17 11:50 Miralax (For Daily Use) - PO 17 grams DAILY [facility] Administration Senna 2 tab 07/07/17 22:00 Senna - PO HS PRN CONSTIPATION Tiotropium [place] 1 puff 07/08/17 10:00 07/08/17 10:29 Spiriva - IH 1 puff DAILY [facility] Administration Verapamil HCl 180 mg 07/08/17 10:00 07/08/17 09:31 Calan Sr - PO 180 mg DAILY [facility] Administration Warfarin Sodium 2 mg 07/08/17 18:00 Coumadin - PO DAILY@1800 [facility]PL[facility]ED [facility] ASSESSMENT/PLAN: 66F with history of COPD, CAD s/p stenting, PAD s/p bilateral stenting in the ICU with cold leg s/p left femoral popliteal bypass with PTFE, angioplasty distal anterior tibial artery, and thrombectomy tibial bypass graft. CV #s/p Left femoral popliteal bypass with PTFE, angioplasty distal anterior tibial artery, thrombectomy tibial bypass graft -Advance diet per surgery -Wound care per surgery -Cefazolin #HTN -Lisinopril #HLD -Atorvastatin Resp #COPD history -Albuterol QID with PRN -Methylprednisone -Singular Neuro #Pain and nausea -Morphine and zofran prn -Gabapentin Dispo- transfer to tele Visit type - Emergency Visit Emergency Visit: Yes ED Registration Date: 07/06/17 Care time: The patient presented to the Emergency Department on the above date and was hospitalized for further evaluation of their emergent condition. - New Patient This patient is new to me today: Yes Date on this admission: 07/08/17 - Critical Care Critical Care patient: Yes Total Critical Care Time (in minutes): 35 Critical Care Statement: The care of this patient involved high complexity decision making to prevent further life threatening deterioration of the patient 's condition and/or to evaluate & treat vital organ system(s) failure or risk of failure.
[2017-07-08] MEDS ORDERED: DOCUSATE SODIUM 100 MG CAPSULE (FP) PO PRN ×2 (13:20→15:59)
[2017-07-08] MEDS ORDERED: ONDANSETRON 4 MG/2 ML VIAL IVPUSH PRN ×2 (13:20→15:59)
[2017-07-08] MEDS ORDERED: morphine SULFATE 4 MG/ML VIAL IVPUSH PRN ×4 (13:20→14:50)
[2017-07-08] MEDS ORDERED: LACTATED RINGERS SOLUTION 1,000 ML IV SCH (13:20)
[2017-07-08] MEDS ORDERED: ALBUTEROL SO4 0.083% IH SOL 2.5 MG/3 ML VIAL.NEB. NEB PRN ×2 (13:20→15:59)
[2017-07-08] MEDS ORDERED: GABAPENTIN 300 MG CAPSULE (FP) PO SCH (14:00)
--- NOTE | 2017-07-08 14:45 | PN ---
Progress Note (short form) - Note Progress Note: Pt seen and examined. Constitutional: Yes: Well Nourished, No Distress, Calm Eyes: Yes: Conjunctiva Clear HENT: Yes: Atraumatic, Normocephalic Neck: Yes: Supple, Trachea Midline Cardiovascular: Yes: Regular Rate and Rhythm Respiratory: Yes: Regular, CTA Bilaterally Gastrointestinal: Yes: Normal Bowel Sounds, Soft Extremities: Yes: reperfused LLE Temp Pulse Resp BP Pulse Ox 98.6 F 94 H 16 120/71 98 07/08/17 13:19 07/08/17 13:19 07/08/17 13:19 07/08/17 13:19 07/08/17 07:23 CBC, BMP 07/08/17 06:03 07/06/17 06:00 Current Medications Generic Name Dose Route Start Last Admin Trade Name Freq PRN Reason Stop Dose Admin Acetaminophen 650 mg 07/08/17 13:20 Tylenol - PO Q6H PRN PAIN Albuterol Sulfate 1 amp 07/08/17 13:20 Ventolin 0.083% Nebulizer Soln - NEB Q4H PRN SHORT OF BREATH/WHEEZING Albuterol Sulfate 1 amp 07/08/17 16:00 Ventolin 0.083% Nebulizer Soln - NEB RQID [facility] Atorvastatin Calcium 20 mg 07/08/17 22:00 Lipitor - PO HS [facility] Chlorhexidine Gluconate 1 applic 07/08/17 22:00 Hibiclens For Decolonization - TP HS [facility] Clopidogrel Bisulfate 75 mg 07/09/17 10:00 Plavix - PO DAILY [facility] Docusate Sodium 100 mg 07/08/17 13:20 Colace - PO Q8H PRN CONSTIPATION Fluticasone Propionate 1 spray 07/09/17 10:00 07/08/17 13:31 Flonase - NS 1 sprays DAILY [facility] Administration Gabapentin 600 mg 07/08/17 14:00 07/08/17 13:36 Neurontin - PO 600 mg QID [facility] Administration Cefazolin Sodium 1 gm/ 50 mls @ 100 mls/hr 07/08/17 18:00 Dextrose IVPB Q8H-IV [facility] Lactated Ringer's 1,000 mls @ 75 mls/hr 07/08/17 13:20 07/08/17 13:29 Lactated Ringers Solution IV Not Given ASDIR [facility] Lisinopril 20 mg 07/09/17 10:00 Prinivil PO DAILY [facility] Montelukast Sodium 10 mg 07/08/17 22:00 Singulair - PO HS [facility] Morphine Sulfate 2 mg 07/08/17 13:20 Morphine Sulfate IVPUSH Q4H PRN PAIN LEVEL 4 - 6 Morphine Sulfate 4 mg 07/08/17 13:52 Morphine Sulfate IVPUSH Q3H PRN PAIN LEVEL 7-10 Mupirocin 1 applic 07/08/17 22:00 Bactroban Ointment (For Decolonization) - NS 07/12/17 21:59 BID [facility] Nicotine 21 mg 07/09/17 10:00 Nicoderm Patch - TD DAILY [facility] Ondansetron HCl 4 mg 07/08/17 13:20 Zofran Injection IVPUSH Q6H PRN NAUSEA AND/OR VOMITING Pantoprazole Sodium 40 mg 07/09/17 10:00 Protonix - PO DAILY [facility] Polyethylene Glycol 17 gm 07/09/17 10:00 Miralax (For Daily Use) - PO DAILY [facility] Senna 2 tab 07/08/17 22:00 Senna - PO HS PRN CONSTIPATION Tiotropium [place] 1 puff 07/09/17 10:00 Spiriva - IH DAILY [facility] Verapamil HCl 180 mg 07/09/17 10:00 Calan Sr - PO DAILY [facility] Warfarin Sodium 2 mg 07/08/17 18:00 Coumadin - PO DAILY@1800 [facility] HTN, HLD, CAD s/p stent, COPD, PAD with left Femoral/Popliteal Thrombectomy/ Popliteal Anterior Tibial Bypass (x 2- 02/21 and 03/20/16) Now POD#2 , thrombosed left leg bypass s/p left femoral popliteal bypass with PTFE, angioplasty distal anterior tibial artery CTA reviewed: recommend GI eval for the noted CBD dilatation prominent than before. Treatment: now on ASA/Plavix/Coumadin will await hypercoag w/u Monitor Post op HCT closely Age appropriate malignancy screening in the OP setting.
[2017-07-08] MEDS ORDERED: oxyCODONE HCL 5 MG TABLET PO PRN ×3 (14:48→15:59)
--- NOTE | 2017-07-08 15:59 | PN ---
Teaching Attending Note Name of Resident: Connie Armstrong ATTENDING PHYSICIAN STATEMENT I saw and evaluated the patient. I reviewed the resident's note and discussed the case with the resident. I agree with the resident's findings and plan as documented. SUBJECTIVE: Pain in left leg is better. OBJECTIVE: Vital Signs Period Temp Pulse Resp BP Sys/Olguin Pulse Ox Last 24 Hr 97.4 F-98.6 F 46-94 10-20 85-143/40-79 92-100 HEART: S1S2, RRR LUNGS: Clear ABDOMEN: Soft, non-tender, non-distended, normal BS EXTREMITIES: No edema. Left foot warm and pink Laboratory Results - last 24 hr 07/06/17 07/07/17 07/07/17 06:00 16:00 16:00 WBC 9.9 RBC 2.84 L D Hgb 8.5 L D Hct 26.4 L D MCV 92.7 MCH 29.7 MCHC 32.1 RDW 19.8 H Plt Count 228 D MPV 9.7 Neutrophils % 93.6 H D Lymphocytes % 3.5 L D Monocytes % 2.8 L Eosinophils % 0.0 D Basophils % 0.1 PT with INR Cancelled INR Cancelled PTT (Actin FS) Cancelled Crossmatch IS Only See Detail 07/07/17 07/08/17 07/08/17 18:45 06:03 06:03 WBC 10.6 H RBC 2.85 L Hgb 8.5 L Hct 25.8 L MCV 90.5 MCH 30.0 MCHC 33.1 RDW 19.3 H Plt Count 216 MPV 9.8 Neutrophils % Lymphocytes % Monocytes % Eosinophils % Basophils % PT with INR 23.10 H INR 2.04 H D PTT (Actin FS) 41.1 H D 31.7 Crossmatch IS Only 07/08/17 06:11 WBC RBC Hgb Hct MCV MCH MCHC RDW Plt Count MPV Neutrophils % Lymphocytes % Monocytes % Eosinophils % Basophils % PT with INR 23.00 H INR 2.04 H PTT (Actin FS) Crossmatch IS Only Current Medications Generic Name Dose Route Start Last Admin Trade Name Freq PRN Reason Stop Dose Admin Acetaminophen 650 mg 07/08/17 13:20 Tylenol - PO Q6H PRN PAIN Albuterol Sulfate 1 amp 07/08/17 13:20 Ventolin 0.083% Nebulizer Soln - NEB Q4H PRN SHORT OF BREATH/WHEEZING Albuterol Sulfate 1 amp 07/08/17 16:00 07/08/17 15:05 Ventolin 0.083% Nebulizer Soln - NEB 1 amp RQID [facility] Administration Atorvastatin Calcium 20 mg 07/08/17 22:00 Lipitor - PO HS [facility] Chlorhexidine Gluconate 1 applic 07/08/17 22:00 Hibiclens For Decolonization - TP HS [facility] Clopidogrel Bisulfate 75 mg 07/09/17 10:00 Plavix - PO DAILY [facility] Docusate Sodium 100 mg 07/08/17 13:20 Colace - PO Q8H PRN CONSTIPATION Fluticasone Propionate 1 spray 07/09/17 10:00 07/08/17 13:31 Flonase - NS 1 sprays DAILY [facility] Administration Gabapentin 600 mg 07/08/17 14:00 07/08/17 13:36 Neurontin - PO 600 mg QID [facility] Administration Cefazolin Sodium 1 gm/ 50 mls @ 100 mls/hr 07/08/17 18:00 Dextrose IVPB Q8H-IV [facility] Lactated Ringer's 1,000 mls @ 75 mls/hr 07/08/17 13:20 07/08/17 13:29 Lactated Ringers Solution IV Not Given ASDIR [facility] Lisinopril 20 mg 07/09/17 10:00 Prinivil PO DAILY [facility] Montelukast Sodium 10 mg 07/08/17 22:00 Singulair - PO HS [facility] Morphine Sulfate 2 mg 07/08/17 14:50 Morphine Sulfate IVPUSH Q4H PRN PAIN LEVEL 7 - 10 Mupirocin 1 applic 07/08/17 22:00 Bactroban Ointment (For Decolonization) - NS 07/12/17 21:59 BID [facility] Nicotine 21 mg 07/09/17 10:00 Nicoderm Patch - TD DAILY [facility] Ondansetron HCl 4 mg 07/08/17 13:20 Zofran Injection IVPUSH Q6H PRN NAUSEA AND/OR VOMITING Oxycodone HCl 5 mg 07/08/17 14:48 Roxicodone - PO Q4H PRN PAIN LEVEL 1 - 3 Oxycodone HCl 10 mg 07/08/17 14:48 07/08/17 15:14 Roxicodone - PO 10 mg Q6H PRN Administration PAIN LEVEL 4 - 6 Pantoprazole Sodium 40 mg 07/09/17 10:00 Protonix - PO DAILY [facility] Polyethylene Glycol 17 gm 07/09/17 10:00 Miralax (For Daily Use) - PO DAILY [facility] Senna 2 tab 07/08/17 22:00 Senna - PO HS PRN CONSTIPATION Tiotropium [place] 1 puff 07/09/17 10:00 Spiriva - IH DAILY [facility] Verapamil HCl 180 mg 07/09/17 10:00 Calan Sr - PO DAILY [facility] Warfarin Sodium 2 mg 07/08/17 18:00 Coumadin - PO DAILY@1800 [facility] ASSESSMENT AND PLAN: This is a 66 year old woman with a history of PAD, LLE bypass, CAD, stent, HTN, hyperlipidemia, COPD who presented to the ED with left leg pain. 1. PAD with left foot ischemia - s/p left femoral and popliteal thrombectomy, popliteal anterior tibial bypass 03/20/17 - s/p left femoral popliteal bypass, angioplasty of distal anterior tibial artery, thrombectomy of tibial bypass graft 07/07 - Continue Plavix, Lipitor - Restart Coumadin 2. CAD, history of stents - Continue Plavix, Lipitor 3. COPD - Stable - Continue Singulair, Spiriva, albuterol nebs - SoluMedrol given perioperatively 4. HTN - Continue Lisinopril, Calan SR 5. Hyperlipidemia - Continue Lipitor 6. Prolonged QTc 7. Nicotine dependence - Continue nicotine patch
[2017-07-08] MEDS ORDERED: ALBUTEROL SO4 0.083% IH SOL 2.5 MG/3 ML VIAL.NEB. NEB SCH (16:00)
[2017-07-08] MEDS ORDERED: morphine SULFATE 4 MG/ML VIAL ONE (16:13)
[2017-07-08] MEDS: LACTATED RINGERS SOLUTION 1,000 ML IV SCH (16:17)
[2017-07-08] MEDS: WARFARIN NA 2 MG TABLET (UD) PO SCH (17:11)
[2017-07-08] MEDS ORDERED: WARFARIN NA 3 MG TABLET PO SCH (18:00)
[2017-07-08] MEDS ORDERED: CEFAZOLIN 1 GM in DEXTROSE 5%-WATER - 50 ML IVPB SCH (18:00)
[2017-07-08] MEDS ORDERED: WARFARIN NA 2 MG TABLET (UD) PO SCH ×2 (18:00)
[2017-07-08 18:29] LABS: URINE APPEARANCE SLCLOUDY; URINE BILIRUBIN NEGATIVE (<2.0 mg/dL); URINE COLOR LTYELLOW; URINE GLUCOSE (UA) NEGATIVE (NEGATIVE); URINE KETONE NEGATIVE (NEGATIVE); URINE NITRITE NEGATIVE (NEGATIVE); URINE PROTEIN NEGATIVE (NEGATIVE); URINE UROBILINOGEN NEGATIVE mg/dL (0.2-1.0)
[2017-07-08 18:37] LABS: URINE LEUK ESTERASE 2+ (NEGATIVE)
[2017-07-08 19:27] LABS: YEAST FEW
--- NOTE | 2017-07-08 21:13 | PN ---
Progress Note, Physician Chief Complaint: Pt. pain controlled, no GA complaints - Current Medication List Current Medications: Active Medications Acetaminophen (Tylenol -) 650 mg PO Q6H PRN PRN Reason: FEVER Albuterol Sulfate (Ventolin 0.083% Nebulizer Soln -) 1 amp NEB Q4H PRN PRN Reason: SHORT OF BREATH/WHEEZING Albuterol Sulfate (Ventolin 0.083% Nebulizer Soln -) 1 amp NEB RQID [facility] Last Admin: 07/08/17 18:48 Dose: Not Given Atorvastatin Calcium (Lipitor -) 20 mg PO HS [facility] Chlorhexidine Gluconate (Hibiclens For Decolonization -) 1 applic TP HS [facility] Clopidogrel Bisulfate (Plavix -) 75 mg PO DAILY [facility] Docusate Sodium (Colace -) 100 mg PO Q8H PRN PRN Reason: CONSTIPATION Fluticasone Propionate (Flonase -) 1 spray NS DAILY [facility] Gabapentin (Neurontin -) 600 mg PO QID [facility] Last Admin: 07/08/17 17:12 Dose: 600 mg Cefazolin Sodium 1 gm/ (Dextrose) 50 mls @ 100 mls/hr IVPB Q8H-IV [facility] Last Admin: 07/08/17 17:11 Dose: 100 mls/hr Lactated Ringer's (Lactated Ringers Solution) 1,000 mls @ 75 mls/hr IV ASDIR [facility] Last Admin: 07/08/17 16:17 Dose: 75 mls/hr Lisinopril (Prinivil) 20 mg PO DAILY [facility] Montelukast Sodium (Singulair -) 10 mg PO HS [facility] Morphine Sulfate (Morphine Sulfate) 2 mg IVPUSH Q4H PRN PRN Reason: PAIN LEVEL 7 - 10 Last Admin: 07/08/17 20:48 Dose: 2 mg Mupirocin (Bactroban Ointment (For Decolonization) -) 1 applic NS BID [facility] Stop: 07/12/17 21:59 Nicotine (Nicoderm Patch -) 21 mg TD DAILY [facility] Ondansetron HCl (Zofran Injection) 4 mg IVPUSH Q6H PRN PRN Reason: NAUSEA AND/OR VOMITING Oxycodone HCl (Roxicodone -) 5 mg PO Q4H PRN PRN Reason: PAIN LEVEL 1-3 Oxycodone HCl (Roxicodone -) 10 mg PO Q6H PRN PRN Reason: PAIN LEVEL 4 - 6 Pantoprazole Sodium (Protonix -) 40 mg PO DAILY [facility] Polyethylene Glycol (Miralax (For Daily Use) -) 17 gm PO DAILY [facility] Senna (Senna -) 2 tab PO HS PRN PRN Reason: CONSTIPATION Tiotropium [place] (Spiriva -) 1 puff IH DAILY [facility] Verapamil HCl (Calan Sr -) 180 mg PO DAILY [facility] Warfarin Sodium (Coumadin -) 2 mg PO DAILY@1800 [facility] Last Admin: 07/08/17 17:11 Dose: 2 mg - Objective Vital Signs: Vital Signs Temperature 98.6 F 07/08/17 13:19 Pulse Rate 67 07/08/17 16:45 Respiratory Rate 20 07/08/17 16:45 Blood Pressure 106/53 07/08/17 16:45 O2 Sat by Pulse Oximetry (%) 98 07/08/17 07:23 Constitutional: Yes: Well Nourished, No Distress, Calm Musculoskeletal: Yes: WNL Neurological: Yes: WNL, Alert, Oriented Labs: CBC, BMP 07/08/17 06:03 07/06/17 06:00 INR, PTT INR 2.04 (0.82-1.09) H 07/08/17 06:11 Assessment/Plan POD#1 s/p open thrombectomy, angiogram, fem pop bypass under GA. Doing well. D/C from anesthesia care.
[2017-07-08] MEDS ORDERED: MONTELUKAST NA 10 MG TABLET PO SCH (22:00)
[2017-07-08] MEDS ORDERED: MUPIROCIN 2% TOPICAL OINTMENT FOR DECOLONIZATION NS SCH (22:00)
[2017-07-08] MEDS ORDERED: ATORVASTATIN CA 20 MG TABLET (FP) PO SCH (22:00)
[2017-07-08] MEDS ORDERED: SENNOSIDES 8.6MG TABLET (FP) PO PRN ×2 (22:00)
[2017-07-08] MEDS ORDERED: CHLORHEXIDINE GLUCONATE 4% CLEANSER FOR DECOLONIZATION TP SCH (22:00)
[2017-07-08] MEDS: MONTELUKAST NA 10 MG TABLET PO SCH (22:33)
[2017-07-08] MEDS: ATORVASTATIN CA 20 MG TABLET (FP) PO SCH (22:34)
[2017-07-08] MEDS: CHLORHEXIDINE GLUCONATE 4% CLEANSER FOR DECOLONIZATION TP SCH (22:35)
[2017-07-09] MEDS: CEFAZOLIN 1 GM in DEXTROSE 5%-WATER - 50 ML IVPB SCH ×3 (01:23→17:26)
[2017-07-09] MEDS: oxyCODONE HCL 5 MG TABLET PO PRN ×3 (02:47→18:17)
[2017-07-09] MEDS: ACETAMINOPHEN 325 MG TABLET (FP) PO PRN ×3 (02:48→18:18)
[2017-07-09] MEDS: morphine SULFATE 4 MG/ML VIAL IVPUSH PRN ×4 (04:06→21:24)
[2017-07-09 06:43] LABS: BASO % 0.4 % (0-2.0); HEMATOCRIT 25.5 % (32.4-45.2); HEMOGLOBIN 8.3 GM/dL (10.7-15.3); LYMPH % 8.1 % (8-40); MCH 29.6 pg (25.7-33.7); MCHC 32.6 g/dl (32.0-36.0); MEAN CELL VOLUME 90.7 fl (80-96); MEAN PLT VOLUME 10.5 fl (7.5-11.1); MONO % 13.3 % (3.8-10.2); NEUT % 77.2 % (42.8-82.8); PLATELET COUNT 188 K/MM3 (134-434); RBC 2.81 M/mm3 (3.60-5.2); RDW 19.4 % (11.6-15.6); WHITE BLOOD COUNT 13.1 K/mm3 (4.0-10.0)
[2017-07-09 06:57] LABS: CHLORIDE 103 mmol/L (98-107); SODIUM 137 mmol/L (136-145)
[2017-07-09 07:04] LABS: ALBUMIN 2.7 g/dl (3.4-5.0); ALK PHOS 62 U/L (45-117); ANION GAP 5 (8-16); BILIRUBIN,TOTAL 0.2 mg/dL (0.2-1.0); BLOOD UREA NITROGEN 22 mg/dL (7-18); CALCIUM 7.8 mg/dL (8.5-10.1); CO2 29 mmol/L (21-32); CREATININE 0.8 mg/dL (0.55-1.02); GLUCOSE,RANDOM 124 mg/dL (74-106); INR 1.65 (0.82-1.09); MAGNESIUM 1.9 mg/dL (1.8-2.4); PHOSPHOROUS 2.8 mg/dL (2.5-4.9); PROTHROMBIN TIME (PATIENT) 18.6 SEC (9.7-13.0); SGOT/AST 18 U/L (15-37); SGPT/ALT 9 U/L (12-78); TOT PROT 5.6 g/dl (6.4-8.2)
[2017-07-09] MEDS: ALBUTEROL SO4 0.083% IH SOL 2.5 MG/3 ML VIAL.NEB. NEB SCH ×4 (07:20→21:16)
--- NOTE | 2017-07-09 08:31 | PN ---
Physical Exam: SUBJECTIVE: Patient seen and examined in ICU. Reports pain leg and groin pain better controlled. No fever, chills, CP, sob. Eating and voiding well. OBJECTIVE: Vital Signs Period Temp Pulse Resp BP Sys/Olguin Pulse Ox Last 24 Hr 97.4 F-98.7 F 64-94 12-21 98-143/40-98 98 General: aaox3, nad Heart: rrr, normal s1/s2 Chest: CTAB Abd: soft, ntnd Ext: L foot wwp, palpable DP and PT pulses CBC, BMP 07/09/17 06:00 07/09/17 06:00 Hepatic Panel Total Bilirubin 0.2 mg/dL (0.2-1.0) 07/09/17 06:00 AST 18 U/L (15-37) 07/09/17 06:00 ALT 9 U/L (12-78) L 07/09/17 06:00 Alkaline Phosphatase 62 U/L (45-117) 07/09/17 06:00 Albumin 2.7 g/dl (3.4-5.0) L 07/09/17 06:00 INR, PTT INR 1.65 (0.82-1.09) H 07/09/17 06:00 Active Medications Acetaminophen (Tylenol -) 650 mg PO Q6H PRN PRN Reason: FEVER Last Admin: 07/09/17 02:48 Dose: 650 mg Albuterol Sulfate (Ventolin 0.083% Nebulizer Soln -) 1 amp NEB Q4H PRN PRN Reason: SHORT OF BREATH/WHEEZING Albuterol Sulfate (Ventolin 0.083% Nebulizer Soln -) 1 amp NEB RQID [facility] Last Admin: 07/09/17 11:35 Dose: 1 amp Atorvastatin Calcium (Lipitor -) 20 mg PO [facility] Last Admin: 07/08/17 22:34 Dose: 20 mg Chlorhexidine Gluconate (Hibiclens For Decolonization -) 1 applic TP [facility] Last Admin: 07/08/17 22:35 Dose: 1 applic Clopidogrel Bisulfate (Plavix -) 75 mg PO DAILY [facility] Last Admin: 07/09/17 10:03 Dose: 75 mg Docusate Sodium (Colace -) 100 mg PO Q8H PRN PRN Reason: CONSTIPATION Enoxaparin Sodium (Lovenox -) 70 mg SQ BID [facility] Fluticasone Propionate (Flonase -) 1 spray NS DAILY [facility] Last Admin: 07/09/17 10:02 Dose: 1 spray Gabapentin (Neurontin -) 600 mg PO QID [facility] Last Admin: 07/09/17 10:06 Dose: 600 mg Cefazolin Sodium 1 gm/ (Dextrose) 50 mls @ 100 mls/hr IVPB Q8H-IV [facility] Last Admin: 07/09/17 09:58 Dose: 100 mls/hr Lactated Ringer's (Lactated Ringers Solution) 1,000 mls @ 75 mls/hr IV ASDIR [facility] Last Admin: 07/08/17 16:17 Dose: 75 mls/hr Lisinopril (Prinivil) 20 mg PO DAILY [facility] Last Admin: 07/09/17 10:03 Dose: 20 mg Montelukast Sodium (Singulair -) 10 mg PO HS [facility] Last Admin: 07/08/17 22:33 Dose: 10 mg Morphine Sulfate (Morphine Sulfate) 2 mg IVPUSH Q4H PRN PRN Reason: PAIN LEVEL 7 - 10 Last Admin: 07/09/17 09:54 Dose: 2 mg Mupirocin (Bactroban Ointment (For Decolonization) -) 1 applic NS BID [facility] Stop: 07/12/17 21:59 Last Admin: 07/08/17 22:35 Dose: 1 applic Nicotine (Nicoderm Patch -) 21 mg TD DAILY [facility] Last Admin: 07/09/17 10:03 Dose: 21 mg Ondansetron HCl (Zofran Injection) 4 mg IVPUSH Q6H PRN PRN Reason: NAUSEA AND/OR VOMITING Oxycodone HCl (Roxicodone -) 5 mg PO Q4H PRN PRN Reason: PAIN LEVEL 1-3 Last Admin: 07/08/17 22:33 Dose: 5 mg Oxycodone HCl (Roxicodone -) 10 mg PO Q6H PRN PRN Reason: PAIN LEVEL 4 - 6 Last Admin: 07/09/17 02:47 Dose: 10 mg Pantoprazole Sodium (Protonix -) 40 mg PO DAILY [facility] Last Admin: 07/09/17 10:03 Dose: 40 mg Polyethylene Glycol (Miralax (For Daily Use) -) 17 gm PO DAILY [facility] Last Admin: 07/09/17 10:05 Dose: 17 grams Senna (Senna -) 2 tab PO HS PRN PRN Reason: CONSTIPATION Tiotropium [place] (Spiriva -) 1 puff IH DAILY [facility] Last Admin: 07/09/17 10:01 Dose: 1 puff Verapamil HCl (Calan Sr -) 180 mg PO DAILY [facility] Last Admin: 07/09/17 10:04 Dose: 180 mg Warfarin Sodium (Coumadin -) 2 mg PO DAILY@1800 [facility] Last Admin: 07/08/17 17:11 Dose: 2 mg ASSESSMENT/PLAN: 66yo woman with PMH of former smoker, COPD, CAD s/p stent, PAD s/p left femoral/ popliteal thrombectomy and popliteal anterior tibial bypass 03/20/17 (on Coumadin ), and recently discharged home on Wednesday from SNF who presents with acute onset of L foot pain and found to have extensive clot in L superficial femoral/ popliteal. #POD2 s/p L femoral popliteal bypass with synthetic PTFE graft, angioplasty of distal anterior tibial artery, and thrombectomy tibial bypass graft -Edgard-operative Ancef completed -Coumadin restarted 5/3 at 2mg; INR subtherapeutic today --> will bridge with Lovenox until INR 2-3 -c/w Plavix and Lipitor -Pain control with oxy 5mg Q4H PRN for pain 1-3; oxy 10mg Q6H PRN for pain 4-6, Morphine 2mg IVP Q4H PRN pain 7-10 -Bowel regiment -Heme consulted, hypercoagulable w/u in progress and OP age-appropriate Cancer screening #asymptomatic CBD dilatation, LFTs wnl, CTA on 07/05: CBD up to 1.1cm, more prominent than prior with diffuse pancreatic ductal dilatation w/o e/o obstructing mass -GI consulted #COPD, no acute exacerbation, s/p edgard-operative Solumedrol -Pulm consulted -c/w home Spiriva, Singulair, Albulterol sapna RQID + Q4H PRN -O2 therapy to maintain SpaO2 >90% #CAD s/p stent -Cardiology consulted -c/w home Lipitor 20mg HS, Plavix #HTN - c/w home lisinopril 20mg qd and verapamil 180mg qd #Nicotine dependence - Nicotine patch #FEN LR@ 75cc lytes wnl Cardiac diet #PPX: Coumadin/ Protonix 40mg daily #DISPO: transfer to m/s FULL code d/w Dr. Nadya Armstrong MD PGY1 - Internal Medicine Visit type - Emergency Visit Emergency Visit: No - New Patient This patient is new to me today: No - Critical Care Critical Care patient: Yes Total Critical Care Time (in minutes): 40 Critical Care Statement: The care of this patient involved high complexity decision making to prevent further life threatening deterioration of the patient 's condition and/or to evaluate & treat vital organ system(s) failure or risk of failure.
[2017-07-09] MEDS ORDERED: PT OWN MED DRAWER 7, Y5N ONE (09:52)
[2017-07-09] MEDS ORDERED: DEXTROSE 5%-WATER - 50 ML IVPB ONE ×2 (09:52→16:28)
[2017-07-09] MEDS ORDERED: ceFAZolin SODIUM 1 GM VIAL ONE ×2 (09:52→16:28)
[2017-07-09] MEDS ORDERED: CLOPIDOGREL BISULFATE 75 MG TABLET (FP) PO SCH (10:00)
[2017-07-09] MEDS ORDERED: PANTOPRAZOLE 40 MG TABLET (FP) PO SCH (10:00)
[2017-07-09] MEDS ORDERED: LISINOPRIL 20 MG TABLET (FP) PO SCH (10:00)
[2017-07-09] MEDS ORDERED: TIOTROPIUM BROMIDE 18 MCG CAPSULES IH SCH (10:00)
[2017-07-09] MEDS ORDERED: POLYETHYLENE GLYCOL 3350 119 GM BTL PO SCH (10:00)
[2017-07-09] MEDS ORDERED: VERAPAMIL HCL 180 MG E.R. TABLET (FP) PO SCH (10:00)
[2017-07-09] MEDS ORDERED: FLUTICASONE PROP 0.05% 16 GM NASAL SPRAY NS SCH (10:00)
[2017-07-09] MEDS ORDERED: NICOTINE 21 MG/24 HOURS TOPICAL PATCH TD SCH (10:00)
[2017-07-09] MEDS: TIOTROPIUM BROMIDE 18 MCG CAPSULES IH SCH (10:01)
[2017-07-09] MEDS: FLUTICASONE PROP 0.05% 16 GM NASAL SPRAY NS SCH (10:02)
[2017-07-09] MEDS: PANTOPRAZOLE 40 MG TABLET (FP) PO SCH (10:03)
[2017-07-09] MEDS: LISINOPRIL 20 MG TABLET (FP) PO SCH (10:03)
[2017-07-09] MEDS: CLOPIDOGREL BISULFATE 75 MG TABLET (FP) PO SCH (10:03)
[2017-07-09] MEDS: NICOTINE 21 MG/24 HOURS TOPICAL PATCH TD SCH (10:03)
[2017-07-09] MEDS: VERAPAMIL HCL 180 MG E.R. TABLET (FP) PO SCH (10:04)
[2017-07-09] MEDS: POLYETHYLENE GLYCOL 3350 119 GM BTL PO SCH (10:05)
[2017-07-09] MEDS: GABAPENTIN 300 MG CAPSULE (FP) PO SCH ×4 (10:06→21:24)
--- NOTE | 2017-07-09 10:51 | PN ---
Progress Note, Physician History of Present Illness: POD#2 s/p left fem-pop bypass, denies chest pain or dyspnea - Current Medication List Current Medications: Active Medications Acetaminophen (Tylenol -) 650 mg PO Q6H PRN PRN Reason: FEVER Last Admin: 07/09/17 02:48 Dose: 650 mg Albuterol Sulfate (Ventolin 0.083% Nebulizer Soln -) 1 amp NEB Q4H PRN PRN Reason: SHORT OF BREATH/WHEEZING Albuterol Sulfate (Ventolin 0.083% Nebulizer Soln -) 1 amp NEB RQID [facility] Last Admin: 07/09/17 07:20 Dose: 1 amp Atorvastatin Calcium (Lipitor -) 20 mg PO HS [facility] Last Admin: 07/08/17 22:34 Dose: 20 mg Chlorhexidine Gluconate (Hibiclens For Decolonization -) 1 applic TP [facility] Last Admin: 07/08/17 22:35 Dose: 1 applic Clopidogrel Bisulfate (Plavix -) 75 mg PO DAILY [facility] Last Admin: 07/09/17 10:03 Dose: 75 mg Docusate Sodium (Colace -) 100 mg PO Q8H PRN PRN Reason: CONSTIPATION Fluticasone Propionate (Flonase -) 1 spray NS DAILY [facility] Last Admin: 07/09/17 10:02 Dose: 1 spray Gabapentin (Neurontin -) 600 mg PO QID [facility] Last Admin: 07/09/17 10:06 Dose: 600 mg Cefazolin Sodium 1 gm/ (Dextrose) 50 mls @ 100 mls/hr IVPB Q8H-IV [facility] Last Admin: 07/09/17 09:58 Dose: 100 mls/hr Lactated Ringer's (Lactated Ringers Solution) 1,000 mls @ 75 mls/hr IV ASDIR [facility] Last Admin: 07/08/17 16:17 Dose: 75 mls/hr Lisinopril (Prinivil) 20 mg PO DAILY [facility] Last Admin: 07/09/17 10:03 Dose: 20 mg Montelukast Sodium (Singulair -) 10 mg PO HS [facility] Last Admin: 07/08/17 22:33 Dose: 10 mg Morphine Sulfate (Morphine Sulfate) 2 mg IVPUSH Q4H PRN PRN Reason: PAIN LEVEL 7 - 10 Last Admin: 07/09/17 09:54 Dose: 2 mg Mupirocin (Bactroban Ointment (For Decolonization) -) 1 applic NS BID [facility] Stop: 07/12/17 21:59 Last Admin: 07/08/17 22:35 Dose: 1 applic Nicotine (Nicoderm Patch -) 21 mg TD DAILY [facility] Last Admin: 07/09/17 10:03 Dose: 21 mg Ondansetron HCl (Zofran Injection) 4 mg IVPUSH Q6H PRN PRN Reason: NAUSEA AND/OR VOMITING Oxycodone HCl (Roxicodone -) 5 mg PO Q4H PRN PRN Reason: PAIN LEVEL 1-3 Last Admin: 07/08/17 22:33 Dose: 5 mg Oxycodone HCl (Roxicodone -) 10 mg PO Q6H PRN PRN Reason: PAIN LEVEL 4 - 6 Last Admin: 07/09/17 02:47 Dose: 10 mg Pantoprazole Sodium (Protonix -) 40 mg PO DAILY [facility] Last Admin: 07/09/17 10:03 Dose: 40 mg Polyethylene Glycol (Miralax (For Daily Use) -) 17 gm PO DAILY [facility] Last Admin: 07/09/17 10:05 Dose: 17 grams Senna (Senna -) 2 tab PO HS PRN PRN Reason: CONSTIPATION Tiotropium [place] (Spiriva -) 1 puff IH DAILY [facility] Last Admin: 07/09/17 10:01 Dose: 1 puff Verapamil HCl (Calan Sr -) 180 mg PO DAILY [facility] Last Admin: 07/09/17 10:04 Dose: 180 mg Warfarin Sodium (Coumadin -) 2 mg PO DAILY@1800 [facility] Last Admin: 07/08/17 17:11 Dose: 2 mg - Objective Vital Signs: Vital Signs Temperature 98.4 F 07/09/17 06:00 Pulse Rate 90 07/09/17 10:00 Respiratory Rate 16 07/09/17 10:00 Blood Pressure 118/82 07/09/17 10:00 O2 Sat by Pulse Oximetry (%) 98 07/08/17 21:00 Constitutional: Yes: No Distress, Calm, Thin Neck: Yes: Supple Cardiovascular: Yes: Regular Rate and Rhythm Respiratory: Yes: Regular, Diminished, On Nasal O2 Gastrointestinal: Yes: Normal Bowel Sounds, Soft Edema: No Labs: CBC, BMP 07/09/17 06:00 07/09/17 06:00 INR, PTT INR 1.65 (0.82-1.09) H 07/09/17 06:00 - ....Imaging EKG: Report Reviewed (Tele: SR) Problem List - Problems (1) Atherosclerosis of bypass graft of left lower extremity with rest pain Code(s): I70.322 - ATHSCL UNSP TYPE BYPASS OF THE EXTRM W REST PAIN, LEFT LEG (2) Arterial occlusion, lower extremity Code(s): I70.209 - UNSP ATHSCL [place] ARTERIES OF EXTREMITIES, UNSP EXTREMITY (3) CAD (coronary artery disease) Code(s): I25.10 - ATHSCL HEART DISEASE OF [place] CORONARY ARTERY W/O ANG PCTRS Qualifiers: Coronary Disease-Associated Artery/Lesion type: [place] artery [place] vs. transplanted heart: [place] heart Associated angina: without angina Qualified Code(s): I25.10 - Atherosclerotic heart disease of [place] coronary artery without angina pectoris (4) Peripheral vascular disease Code(s): I73.9 - PERIPHERAL VASCULAR DISEASE, UNSPECIFIED (5) S/P coronary artery stent placement Code(s): Z95.5 - PRESENCE OF CORONARY ANGIOPLASTY IMPLANT AND GRAFT (6) Status post peripheral artery angioplasty with insertion of stent Code(s): Z95.820 - PERIPHERAL VASCULAR ANGIOPLASTY STATUS W IMPLANTS AND GRAFTS (7) COPD (chronic obstructive pulmonary disease) Code(s): J44.9 - CHRONIC OBSTRUCTIVE PULMONARY DISEASE, UNSPECIFIED Qualifiers: COPD type: unspecified COPD Qualified Code(s): J44.9 - Chronic obstructive pulmonary disease, unspecified (8) HTN (hypertension) Code(s): I10 - ESSENTIAL (PRIMARY) HYPERTENSION Qualifiers: Hypertension type: essential hypertension Qualified Code(s): I10 - Essential (primary) hypertension (9) Hyperlipemia, mixed Code(s): E78.2 - MIXED HYPERLIPIDEMIA (10) Anemia Code(s): D64.9 - ANEMIA, UNSPECIFIED Qualifiers: Anemia type: unspecified type Qualified Code(s): D64.9 - Anemia, unspecified Assessment/Plan 1. Peripheral artery disease POD#2 h/o fem-pop bypass with thrombosed left leg bypass s/p left femoral popliteal bypass with PTFE, angioplasty distal anterior tibial artery with subtherapeutic INR 2. CAD s/p PCI/stent, angina 3. Hypertension 4. Hypercholesterolemia 5. COPD with long standing history of cigarette smoking 6. Anemia PLAN: 1. Continue Lipitor 20 qhs, Lisinopril 20 qd and Verapamil SR 180 qd as tolerated 2. Continue Plavix 75 qd and coumadin per INR 3. IV steroids with GI protection, BD, Singulair, O2 as needed 4. Surveillance dopplers as outpatient
--- NOTE | 2017-07-09 11:41 | PN ---
Teaching Attending Note Name of Resident: Connie Armstrong ATTENDING PHYSICIAN STATEMENT I saw and evaluated the patient. I reviewed the resident's note and discussed the case with the resident. I agree with the resident's findings and plan as documented. SUBJECTIVE: Patient is comfortable with no acute distress,no shortness of breath, happy that her leg is saved. OBJECTIVE: Vital Signs Temperature 98.4 F 07/09/17 06:00 Pulse Rate 90 07/09/17 10:00 Respiratory Rate 16 07/09/17 10:00 Blood Pressure 118/82 07/09/17 10:00 O2 Sat by Pulse Oximetry (%) 98 07/08/17 21:00 GENERAL: The patient is awake, alert, and fully oriented, in no acute distress. HEAD: Normal with no signs of trauma. EYES: PERRL, extraocular movements intact, sclera anicteric, conjunctiva clear. ENT: Ears normal, oropharynx clear without exudates, moist mucous membranes. NECK: Trachea midline, full range of motion, supple. LUNGS: Breath sounds equal, clear to auscultation bilaterally, no wheezes, no crackles, no accessory muscle use. HEART: Regular rate and rhythm, S1, S2 without murmur, rub or gallop. ABDOMEN: Soft, nontender, nondistended, normoactive bowel sounds, no guarding, no rebound, no hepatosplenomegaly, no masses. EXTREMITIES: 2+ pulses, warm, well-perfused, no edema. NEUROLOGICAL: Cranial nerves II through XII grossly intact. Normal speech, gait not observed. PSYCH: Normal mood, normal affect. SKIN: Warm, dry, normal turgor, no rashes or lesions noted CBCD WBC 13.1 K/mm3 (4.0-10.0) H 07/09/17 06:00 RBC 2.81 M/mm3 (3.60-5.2) L 07/09/17 06:00 Hgb 8.3 GM/dL (10.7-15.3) L 07/09/17 06:00 Hct 25.5 % (32.4-45.2) L 07/09/17 06:00 MCV 90.7 fl (80-96) 07/09/17 06:00 MCHC 32.6 g/dl (32.0-36.0) 07/09/17 06:00 RDW 19.4 % (11.6-15.6) H 07/09/17 06:00 Plt Count 188 K/MM3 (134-434) 07/09/17 06:00 MPV 10.5 fl (7.5-11.1) 07/09/17 06:00 CMP Sodium 137 mmol/L (136-145) 07/09/17 06:00 Potassium 5.0 mmol/L (3.5-5.1) 07/09/17 06:00 Chloride 103 mmol/L (98-107) 07/09/17 06:00 Carbon Dioxide 29 mmol/L (21-32) 07/09/17 06:00 Anion Gap 5 (8-16) L 07/09/17 06:00 BUN 22 mg/dL (7-18) H 07/09/17 06:00 Creatinine 0.8 mg/dL (0.55-1.02) 07/09/17 06:00 Creat Clearance w eGFR > 60 (>60) 07/09/17 06:00 Random Glucose 124 mg/dL (74-106) H 07/09/17 06:00 Calcium 7.8 mg/dL (8.5-10.1) L 07/09/17 06:00 Total Bilirubin 0.2 mg/dL (0.2-1.0) 07/09/17 06:00 AST 18 U/L (15-37) 07/09/17 06:00 ALT 9 U/L (12-78) L 07/09/17 06:00 Alkaline Phosphatase 62 U/L (45-117) 07/09/17 06:00 Total Protein 5.6 g/dl (6.4-8.2) L 07/09/17 06:00 Albumin 2.7 g/dl (3.4-5.0) L 07/09/17 06:00 CARDIAC ENZYMES Creatine Kinase 77 IU/L (26-192) 07/06/17 01:35 Troponin I 0.04 ng/ml (0.00-0.05) 07/06/17 01:35 Current Medications Generic Name Dose Route Start Last Admin Trade Name Freq PRN Reason Stop Dose Admin Acetaminophen 650 mg 07/08/17 15:59 07/09/17 02:48 Tylenol - PO 650 mg Q6H PRN Administration FEVER Albuterol Sulfate 1 amp 07/08/17 15:59 Ventolin 0.083% Nebulizer Soln - NEB Q4H PRN SHORT OF BREATH/WHEEZING Albuterol Sulfate 1 amp 07/08/17 16:00 07/09/17 07:20 Ventolin 0.083% Nebulizer Soln - NEB 1 amp RQID JULIET Administration Atorvastatin Calcium 20 mg 07/08/17 22:00 07/08/17 22:34 Lipitor - PO 20 mg HS JULIET Administration Chlorhexidine Gluconate 1 applic 07/08/17 22:00 07/08/17 22:35 Hibiclens For Decolonization - TP 1 applic HS JULIET Administration Clopidogrel Bisulfate 75 mg 07/09/17 10:00 07/09/17 10:03 Plavix - PO 75 mg DAILY JULIET Administration Docusate Sodium 100 mg 07/08/17 15:59 Colace - PO Q8H PRN CONSTIPATION Enoxaparin Sodium 70 mg 07/09/17 11:30 Lovenox - SQ BID JULIET Fluticasone Propionate 1 spray 07/09/17 10:00 07/09/17 10:02 Flonase - NS 1 spray DAILY JULIET Administration Gabapentin 600 mg 07/08/17 18:00 07/09/17 10:06 Neurontin - PO 600 mg QID JULIET Administration Cefazolin Sodium 1 gm/ 50 mls @ 100 mls/hr 07/08/17 18:00 07/09/17 09:58 Dextrose IVPB 100 mls/hr Q8H-IV JULIET Administration Lactated Ringer's 1,000 mls @ 75 mls/hr 07/08/17 15:59 07/08/17 16:17 Lactated Ringers Solution IV 75 mls/hr ASDIR JULIET Administration Lisinopril 20 mg 07/09/17 10:00 07/09/17 10:03 Prinivil PO 20 mg DAILY JULIET Administration Montelukast Sodium 10 mg 07/08/17 22:00 07/08/17 22:33 Singulair - PO 10 mg HS JULIET Administration Morphine Sulfate 2 mg 07/08/17 15:59 07/09/17 09:54 Morphine Sulfate IVPUSH 2 mg Q4H PRN Administration PAIN LEVEL 7 - 10 Mupirocin 1 applic 07/08/17 22:00 07/08/17 22:35 Bactroban Ointment (For Decolonization) - NS 07/12/17 21:59 1 applic BID JULIET Administration Nicotine 21 mg 07/09/17 10:00 07/09/17 10:03 Nicoderm Patch - TD 21 mg DAILY J[facility]IET Administration Ondansetron HCl 4 mg 07/08/17 15:59 Zofran Injection IVPUSH Q6H PRN NAUSEA AND/OR VOMITING Oxycodone HCl 5 mg 07/08/17 15:59 07/08/17 22:33 Roxicodone - PO 5 mg Q4H PRN Administration PAIN LEVEL 1-3 Oxycodone HCl 10 mg 07/08/17 15:59 07/09/17 02:47 Roxicodone - PO 10 mg Q6H PRN Administration PAIN LEVEL 4 - 6 Pantoprazole Sodium 40 mg 07/09/17 10:00 07/09/17 10:03 Protonix - PO 40 mg DAILY JULIET Administration Polyethylene Glycol 17 gm 07/09/17 10:00 07/09/17 10:05 Miralax (For Daily Use) - PO 17 grams DAILY J[facility]IET Administration Senna 2 tab 07/08/17 22:00 Senna - PO HS PRN CONSTIPATION Tiotropium [place] 1 puff 07/09/17 10:00 07/09/17 10:01 Spiriva - IH 1 puff DAILY JULIET Administration Verapamil HCl 180 mg 07/09/17 10:00 07/09/17 10:04 Calan Sr - PO 180 mg DAILY J[facility]IET Administration Warfarin Sodium 2 mg 07/08/17 18:00 07/08/17 17:11 Coumadin - PO 2 mg DAILY@1800 JULIET Administration Home Medications Medication Instructions Recorded Gabapentin 600 mg PO QID 02/19/17 Montelukast Na [Singulair -] 10 mg PO HS 02/19/17 Verapamil HCl ER [Calan Sr -] 180 mg PO DAILY 02/19/17 Lisinopril [Prinivil] 20 mg PO DAILY #30 tablet 02/28/17 Pantoprazole Sodium [Protonix -] 40 mg PO DAILY #30 tablet.ec 02/28/17 Tiotropium [place] [Spiriva] 1 puff IH DAILY #1 inh 02/28/17 Atorvastatin Ca [Lipitor] 20 mg PO HS tablet 06/05/17 Cefuroxime Axetil [Ceftin -] 500 mg PO Q12H #14 tablet 06/05/17 Clopidogrel Bisulfate [Plavix -] 75 mg PO DAILY tablet 06/05/17 Docusate Sodium [Colace -] 100 mg PO Q8H PRN capsule 06/05/17 Fluconazole [Diflucan -] 200 mg PO DAILY #10 tablet 06/05/17 Nicotine Patch [Nicoderm Patch -] 21 mg TD DAILY patch 06/05/17 Polyethylene Glycol 3350 [Miralax 17 gm PO DAILY bottle 06/05/17 119 gm Btl -] Sennosides [Senna -] 2 tab PO HS PRN tablet 06/05/17 Warfarin Sodium [Coumadin] 3 mg PO 07/05/17 Warfarin Sodium [Coumadin] 3.5 mg PO 07/05/17 Laboratory Tests 07/07/17 07/07/17 07/08/17 06:00 18:45 06:11 PT with INR INR 3.44 H 2.04 H D 2.04 H 07/09/17 06:00 PT with INR 18.60 H INR 1.65 H ASSESSMENT AND PLAN: This is a 66 year old woman with a history of PAD, LLE bypass, CAD, stent, HTN, hyperlipidemia, COPD who presented to the ED with left leg pain. # PAD with left foot Ischemia s/p left femoral and popliteal thrombectomy, popliteal anterior tibial bypass 03/20/17. s/p left femoral popliteal bypass, angioplasty of distal anterior tibial artery, thrombectomy of tibial bypass graft 07/07, On Plavix, Lipitor, Coumadin with subtherapeutic INR, Lovenox 70mg BID sq.as per Daily INR 1.65 continue Lovenox and coumadin # CAD, history of stents: Continue Plavix, Lipitor # COPD Stable, Continue Singulair, Spiriva, albuterol nebs, SoluMedrol given perioperatively # HTN Continue Lisinopril, Calan SR # Hyperlipidemia Continue Lipitor # Prolonged QTc # Nicotine dependence Continue nicotine patch DVT PX: Lovenox,coumadin
[2017-07-09] MEDS: MUPIROCIN 2% TOPICAL OINTMENT FOR DECOLONIZATION NS SCH ×2 (12:28→21:37)
[2017-07-09] MEDS: ENOXAPARIN NA (PORCINE) 80 MG/0.8 ML DISP.SYRIN SQ SCH ×2 (12:28→21:24)
--- NOTE | 2017-07-09 12:53 | PN ---
Teaching Attending Note Name of Resident: Lambert Morrissey ATTENDING PHYSICIAN STATEMENT I saw and evaluated the patient. I reviewed the resident's note and discussed the case with the resident. I agree with the resident's findings and plan as documented. SUBJECTIVE: Patient seen and examined in the ICU. Awake and alert, Less discomfort at the surgical site. No CP or SOB. Seen by vascular this AM. Intake & Output 07/06/17 07/07/17 07/08/17 07/09/17 23:59 23:59 23:59 23:59 Intake Total 846 2235 2915 875 Output Total 1425 2000 1600 Balance 846 810 915 -725 Weight 148 lb 148 lb Last Vital Signs Temp Pulse Resp BP Pulse Ox 98.4 F 90 16 118/82 98 07/09/17 06:00 07/09/17 10:00 07/09/17 10:00 07/09/17 10:00 07/08/17 21:00 Active Medications Acetaminophen (Tylenol -) 650 mg PO Q6H PRN PRN Reason: FEVER Last Admin: 07/09/17 12:25 Dose: 650 mg Albuterol Sulfate (Ventolin 0.083% Nebulizer Soln -) 1 amp NEB Q4H PRN PRN Reason: SHORT OF BREATH/WHEEZING Albuterol Sulfate (Ventolin 0.083% Nebulizer Soln -) 1 amp NEB RQID [facility] Last Admin: 07/09/17 11:35 Dose: 1 amp Atorvastatin Calcium (Lipitor -) 20 mg PO [facility] Last Admin: 07/08/17 22:34 Dose: 20 mg Chlorhexidine Gluconate (Hibiclens For Decolonization -) 1 applic TP [facility] Last Admin: 07/08/17 22:35 Dose: 1 applic Clopidogrel Bisulfate (Plavix -) 75 mg PO DAILY [facility] Last Admin: 07/09/17 10:03 Dose: 75 mg Docusate Sodium (Colace -) 100 mg PO Q8H PRN PRN Reason: CONSTIPATION Enoxaparin Sodium (Lovenox -) 70 mg SQ BID [facility] Last Admin: 07/09/17 12:28 Dose: 70 mg Fluticasone Propionate (Flonase -) 1 spray NS DAILY [facility] Last Admin: 07/09/17 10:02 Dose: 1 spray Gabapentin (Neurontin -) 600 mg PO QID [facility] Last Admin: 07/09/17 10:06 Dose: 600 mg Cefazolin Sodium 1 gm/ (Dextrose) 50 mls @ 100 mls/hr IVPB Q8H-IV [facility] Last Admin: 07/09/17 09:58 Dose: 100 mls/hr Lactated Ringer's (Lactated Ringers Solution) 1,000 mls @ 75 mls/hr IV ASDIR [facility] Last Admin: 07/08/17 16:17 Dose: 75 mls/hr Lisinopril (Prinivil) 20 mg PO DAILY [facility] Last Admin: 07/09/17 10:03 Dose: 20 mg Montelukast Sodium (Singulair -) 10 mg PO HS [facility] Last Admin: 07/08/17 22:33 Dose: 10 mg Morphine Sulfate (Morphine Sulfate) 2 mg IVPUSH Q4H PRN PRN Reason: PAIN LEVEL 7 - 10 Last Admin: 07/09/17 09:54 Dose: 2 mg Mupirocin (Bactroban Ointment (For Decolonization) -) 1 applic NS BID [facility] Stop: 07/12/17 21:59 Last Admin: 07/09/17 12:28 Dose: 1 applic Nicotine (Nicoderm Patch -) 21 mg TD DAILY [facility] Last Admin: 07/09/17 10:03 Dose: 21 mg Ondansetron HCl (Zofran Injection) 4 mg IVPUSH Q6H PRN PRN Reason: NAUSEA AND/OR VOMITING Oxycodone HCl (Roxicodone -) 5 mg PO Q4H PRN PRN Reason: PAIN LEVEL 1-3 Last Admin: 07/08/17 22:33 Dose: 5 mg Oxycodone HCl (Roxicodone -) 10 mg PO Q6H PRN PRN Reason: PAIN LEVEL 4 - 6 Last Admin: 07/09/17 12:26 Dose: 10 mg Pantoprazole Sodium (Protonix -) 40 mg PO DAILY [facility] Last Admin: 07/09/17 10:03 Dose: 40 mg Polyethylene Glycol (Miralax (For Daily Use) -) 17 gm PO DAILY [facility] Last Admin: 07/09/17 10:05 Dose: 17 grams Senna (Senna -) 2 tab PO HS PRN PRN Reason: CONSTIPATION Tiotropium [place] (Spiriva -) 1 puff IH DAILY [facility] Last Admin: 07/09/17 10:01 Dose: 1 puff Verapamil HCl (Calan Sr -) 180 mg PO DAILY [facility] Last Admin: 07/09/17 10:04 Dose: 180 mg Warfarin Sodium (Coumadin -) 2 mg PO DAILY@1800 [facility] Last Admin: 07/08/17 17:11 Dose: 2 mg Constitutional: Yes: Awake and alert, NAD Eyes: Yes: WNL, PERRL HENT: Yes: Atraumatic, Normocephalic Neck: Yes: Supple, Trachea Midline Cardiovascular: Yes: S1, S2 Respiratory: Yes: few scattered rhonchi, On Nasal O2 Gastrointestinal: Yes: Normal Bowel Sounds, Soft Renal/: Yes: Bowman Present Extremities: Yes: Other (RLE warm; + pulse LLE pink and warm with doppler DP and faintly doppler PT) Edema: No Peripheral Pulses WNL: Yes (LUE doppler pulses) Wound/Incision: Yes: Dressing Dry and Intact Neurological: Yes: Alert, Oriented Psychiatric: Yes: WNL Labs: Laboratory Results - last 24 hr 07/08/17 07/09/17 07/09/17 Unknown 06:00 06:00 WBC 13.1 H RBC 2.81 L Hgb 8.3 L Hct 25.5 L MCV 90.7 MCH 29.6 MCHC 32.6 RDW 19.4 H Plt Count 188 MPV 10.5 Neutrophils % 77.2 Lymphocytes % 8.1 D Monocytes % 13.3 H D Eosinophils % 1.0 D Basophils % 0.4 D PT with INR INR Sodium 137 Potassium 5.0 Chloride 103 Carbon Dioxide 29 Anion Gap 5 L BUN 22 H Creatinine 0.8 Creat Clearance w eGFR > 60 Random Glucose 124 H Calcium 7.8 L Phosphorus 2.8 Magnesium 1.9 Total Bilirubin 0.2 AST 18 ALT 9 L Alkaline Phosphatase 62 Total Protein 5.6 L Albumin 2.7 L Urine Color Ltyellow Urine Appearance Slcloudy Urine pH 5.0 Ur Specific [place] 1.015 Urine Protein Negative Urine Glucose (UA) Negative Urine Ketones Negative Urine Blood Negative Urine Nitrite Negative Urine Bilirubin Negative Urine Urobilinogen Negative Ur Leukocyte Esterase 2+ H Urine WBC (Auto) 21 Urine RBC (Auto) 15 Urine Yeast Few 07/09/17 06:00 WBC RBC Hgb Hct MCV MCH MCHC RDW Plt Count MPV Neutrophils % Lymphocytes % Monocytes % Eosinophils % Basophils % PT with INR 18.60 H INR 1.65 H Sodium Potassium Chloride Carbon Dioxide Anion Gap BUN Creatinine Creat Clearance w eGFR Random Glucose Calcium Phosphorus Magnesium Total Bilirubin AST ALT Alkaline Phosphatase Total Protein Albumin Urine Color Urine Appearance Urine pH Ur Specific [place] Urine Protein Urine Glucose (UA) Urine Ketones Urine Blood Urine Nitrite Urine Bilirubin Urine Urobilinogen Ur Leukocyte Esterase Urine WBC (Auto) Urine RBC (Auto) Urine Yeast Problem List - Problems (1) Arterial occlusion, lower extremity Code(s): I70.209 - UNSP ATHSCL TEJON ARTERIES OF EXTREMITIES, UNSP EXTREMITY (2) CAD (coronary artery disease) Code(s): I25.10 - ATHSCL HEART DISEASE OF [place] CORONARY ARTERY W/O ANG PCTRS Qualifiers: Coronary Disease-Associated Artery/Lesion type: [place] artery [place] vs. transplanted heart: [place] heart Associated angina: without angina Qualified Code(s): I25.10 - Atherosclerotic heart disease of [place] coronary artery without angina pectoris (3) COPD exacerbation Code(s): J44.1 - CHRONIC OBSTRUCTIVE PULMONARY DISEASE W (ACUTE) EXACERBATION (4) Cellulitis Code(s): L03.90 - CELLULITIS, UNSPECIFIED (5) Left leg weakness Code(s): M62.81 - MUSCLE WEAKNESS (GENERALIZED) (6) Leg pain, left Code(s): M79.605 - PAIN IN LEFT LEG (7) PAD (peripheral artery disease) Code(s): I73.9 - PERIPHERAL VASCULAR DISEASE, UNSPECIFIED (8) Pain Code(s): R52 - PAIN, UNSPECIFIED (9) Paresthesia and pain of left extremity Code(s): M79.609 - PAIN IN UNSPECIFIED LIMB; R20.2 - PARESTHESIA OF SKIN (10) Peripheral vascular disease Code(s): I73.9 - PERIPHERAL VASCULAR DISEASE, UNSPECIFIED (11) Status post peripheral artery angioplasty with insertion of stent Code(s): Z95.820 - PERIPHERAL VASCULAR ANGIOPLASTY STATUS W IMPLANTS AND GRAFTS (12) Hyperlipemia, mixed Code(s): E78.2 - MIXED HYPERLIPIDEMIA Assessment/Plan POD #1 Left femoral popliteal bypass with PTFE. Angioplasty distal anterior tibial artery. Thrombectomy tibial bypass graft. COPD, active smoker CAD S/P PCI/stent HPL PAD S/P bilateral SFA stent Plan: -Follow dopplers -Monitor surgical site for bleeding -Pain management with prn morphine -BP monitoring -Monitor coags and CBC -AC with Coumadin -Supplemental O2 to maintain saturation -Cont COPD regimen -Cont statins -PO as tolerated -Cardiac Telemetry monitoring Dr Chacon Critical care time spent in reviewing chart, evaluating patient and formulating plan - 36 minutes.
--- NOTE | 2017-07-09 13:45 | PN ---
Physical Exam: SUBJECTIVE: Patient seen and examined in ICU. No acute events overnight. Denies fevers, chills, chest pain. OBJECTIVE: Vital Signs Period Temp Pulse Resp BP Sys/Olguin Pulse Ox Last 24 Hr 98.2 F-98.7 F 64-100 12-21 98-161/40-98 98-100 GENERAL: The patient is awake, alert, and fully oriented, in no acute distress. HEAD: Normal with no signs of trauma. EYES: PERRL, extraocular movements intact, sclera anicteric, conjunctiva clear. No ptosis. NECK: Trachea midline, full range of motion, supple. LUNGS: Breath sounds equal, clear to auscultation bilaterally, no accessory muscle use. HEART: Regular rate and rhythm, S1, S2 without murmur, rub or gallop. ABDOMEN: Soft, nontender, nondistended, normoactive bowel sounds, no guarding, no rebound, no hepatosplenomegaly, no masses. EXTREMITIES: Warm left foot with 1+ DP/PT pulses bilaterally, warm right foot NEUROLOGICAL: Cranial nerves II through XII grossly intact. Normal speech, gait not observed. Laboratory Results - last 24 hr 07/08/17 07/09/17 07/09/17 Unknown 06:00 06:00 WBC 13.1 H RBC 2.81 L Hgb 8.3 L Hct 25.5 L MCV 90.7 MCH 29.6 MCHC 32.6 RDW 19.4 H Plt Count 188 MPV 10.5 Neutrophils % 77.2 Lymphocytes % 8.1 D Monocytes % 13.3 H D Eosinophils % 1.0 D Basophils % 0.4 D PT with INR INR Sodium 137 Potassium 5.0 Chloride 103 Carbon Dioxide 29 Anion Gap 5 L BUN 22 H Creatinine 0.8 Creat Clearance w eGFR > 60 Random Glucose 124 H Calcium 7.8 L Phosphorus 2.8 Magnesium 1.9 Total Bilirubin 0.2 AST 18 ALT 9 L Alkaline Phosphatase 62 Total Protein 5.6 L Albumin 2.7 L Urine Color Ltyellow Urine Appearance Slcloudy Urine pH 5.0 Ur Specific [place] 1.015 Urine Protein Negative Urine Glucose (UA) Negative Urine Ketones Negative Urine Blood Negative Urine Nitrite Negative Urine Bilirubin Negative Urine Urobilinogen Negative Ur Leukocyte Esterase 2+ H Urine WBC (Auto) 21 Urine RBC (Auto) 15 Urine Yeast Few 05/04/18 06:00 WBC RBC Hgb Hct MCV MCH MCHC RDW Plt Count MPV Neutrophils % Lymphocytes % Monocytes % Eosinophils % Basophils % PT with INR 18.60 H INR 1.65 H Sodium Potassium Chloride Carbon Dioxide Anion Gap BUN Creatinine Creat Clearance w eGFR Random Glucose Calcium Phosphorus Magnesium Total Bilirubin AST ALT Alkaline Phosphatase Total Protein Albumin Urine Color Urine Appearance Urine pH Ur Specific [place] Urine Protein Urine Glucose (UA) Urine Ketones Urine Blood Urine Nitrite Urine Bilirubin Urine Urobilinogen Ur Leukocyte Esterase Urine WBC (Auto) Urine RBC (Auto) Urine Yeast Active Medications Generic Name Dose Route Start Last Admin Trade Name Freq PRN Reason Stop Dose Admin Acetaminophen 650 mg 07/08/17 15:59 07/09/17 12:25 Tylenol - PO 650 mg Q6H PRN Administration FEVER Albuterol Sulfate 1 amp 07/08/17 15:59 Ventolin 0.083% Nebulizer Soln - NEB Q4H PRN SHORT OF BREATH/WHEEZING Albuterol Sulfate 1 amp 07/08/17 16:00 07/09/17 11:35 Ventolin 0.083% Nebulizer Soln - NEB 1 amp RQID JULIET Administration Atorvastatin Calcium 20 mg 07/08/17 22:00 07/08/17 22:34 Lipitor - PO 20 mg HS JULIET Administration Chlorhexidine Gluconate 1 applic 07/08/17 22:00 07/08/17 22:35 Hibiclens For Decolonization - TP 1 applic HS JULIET Administration Clopidogrel Bisulfate 75 mg 07/09/17 10:00 07/09/17 10:03 Plavix - PO 75 mg DAILY JULIET Administration Docusate Sodium 100 mg 07/08/17 15:59 Colace - PO Q8H PRN CONSTIPATION Enoxaparin Sodium 70 mg 07/09/17 11:30 07/09/17 12:28 Lovenox - SQ 70 mg BID JULIET Administration Fluticasone Propionate 1 spray 07/09/17 10:00 07/09/17 10:02 Flonase - NS 1 spray DAILY [facility]ET Administration Gabapentin 600 mg 07/08/17 18:00 07/09/17 10:06 Neurontin - PO 600 mg QID JULIET Administration Cefazolin Sodium 1 gm/ 50 mls @ 100 mls/hr 07/08/17 18:00 07/09/17 09:58 Dextrose IVPB 100 mls/hr Q8H-IV [facility]ET Administration Lactated Ringer's 1,000 mls @ 75 mls/hr 07/08/17 15:59 07/08/17 16:17 Lactated Ringers Solution IV 75 mls/hr ASDIR [facility] Administration Lisinopril 20 mg 07/09/17 10:00 07/09/17 10:03 Prinivil PO 20 mg DAILY [facility] Administration Montelukast Sodium 10 mg 07/08/17 22:00 07/08/17 22:33 Singulair - PO 10 mg HS JULIET Administration Morphine Sulfate 2 mg 07/08/17 15:59 07/09/17 09:54 Morphine Sulfate IVPUSH 2 mg Q4H PRN Administration PAIN LEVEL 7 - 10 Mupirocin 1 applic 07/08/17 22:00 07/09/17 12:28 Bactroban Ointment (For Decolonization) - NS 07/12/17 21:59 1 applic BID J[facility]IET Administration Nicotine 21 mg 07/09/17 10:00 07/09/17 10:03 Nicoderm Patch - TD 21 mg DAILY [facility] Administration Ondansetron HCl 4 mg 07/08/17 15:59 Zofran Injection IVPUSH Q6H PRN NAUSEA AND/OR VOMITING Oxycodone HCl 5 mg 07/08/17 15:59 07/08/17 22:33 Roxicodone - PO 5 mg Q4H PRN Administration PAIN LEVEL 1-3 Oxycodone HCl 10 mg 07/08/17 15:59 07/09/17 12:26 Roxicodone - PO 10 mg Q6H PRN Administration PAIN LEVEL 4 - 6 Pantoprazole Sodium 40 mg 07/09/17 10:00 07/09/17 10:03 Protonix - PO 40 mg DAILY [facility]ET Administration Polyethylene Glycol 17 gm 07/09/17 10:00 07/09/17 10:05 Miralax (For Daily Use) - PO 17 grams DAILY [facility] Administration Senna 2 tab 07/08/17 22:00 Senna - PO HS PRN CONSTIPATION Tiotropium [place] 1 puff 07/09/17 10:00 07/09/17 10:01 Spiriva - IH 1 puff DAILY [facility] Administration Verapamil HCl 180 mg 07/09/17 10:00 07/09/17 10:04 Calan Sr - PO 180 mg DAILY [facility] Administration Warfarin Sodium 2 mg 07/08/17 18:00 07/08/17 17:11 Coumadin - PO 2 mg DAILY@1800 JULIET Administration ASSESSMENT/PLAN: 66F with history of COPD, CAD s/p stenting, PAD s/p bilateral stenting in the ICU with cold leg s/p left femoral popliteal bypass with PTFE, angioplasty distal anterior tibial artery, and thrombectomy tibial bypass graft. CV #s/p Left femoral popliteal bypass with PTFE, angioplasty distal anterior tibial artery, thrombectomy tibial bypass graft -Advance diet per surgery -Wound care per surgery -Cefazolin -Lovenox bridge post op back to warfarin #HTN -Lisinopril #HLD -Atorvastatin Resp #COPD history -Albuterol QID with PRN -Methylprednisone -Singular Neuro #Pain and nausea -Morphine and zofran prn -Gabapentin Dispo- transfer to tele Visit type - Emergency Visit Emergency Visit: Yes ED Registration Date: 07/06/17 Care time: The patient presented to the Emergency Department on the above date and was hospitalized for further evaluation of their emergent condition. - New Patient This patient is new to me today: No - Critical Care Critical Care patient: Yes Total Critical Care Time (in minutes): 35 Critical Care Statement: The care of this patient involved high complexity decision making to prevent further life threatening deterioration of the patient 's condition and/or to evaluate & treat vital organ system(s) failure or risk of failure.
--- NOTE | 2017-07-09 14:13 | PN ---
Progress Note (short form) - Note Progress Note: Pt seen and examined. recovering well Constitutional: Yes: Well Nourished, No Distress, Calm Eyes: Yes: Conjunctiva Clear HENT: Yes: Atraumatic, Normocephalic Neck: Yes: Supple, Trachea Midline Cardiovascular: Yes: Regular Rate and Rhythm Respiratory: Yes: Regular, CTA Bilaterally Gastrointestinal: Yes: Normal Bowel Sounds, Soft Extremities: Yes: reperfused LLE, groin+ Temp Pulse Resp BP Pulse Ox 98.6 F 94 H 16 120/71 98 07/08/17 13:19 07/08/17 13:19 07/08/17 13:19 07/08/17 13:19 07/08/17 07:23 CBC, BMP 07/08/17 06:03 07/06/17 06:00 Current Medications Generic Name Dose Route Start Last Admin Trade Name Freq PRN Reason Stop Dose Admin Acetaminophen 650 mg 07/08/17 13:20 Tylenol - PO Q6H PRN PAIN Albuterol Sulfate 1 amp 07/08/17 13:20 Ventolin 0.083% Nebulizer Soln - NEB Q4H PRN SHORT OF BREATH/WHEEZING Albuterol Sulfate 1 amp 07/08/17 16:00 Ventolin 0.083% Nebulizer Soln - NEB RQID JULIET Atorvastatin Calcium 20 mg 07/08/17 22:00 Lipitor - PO HS JULIET Chlorhexidine Gluconate 1 applic 07/08/17 22:00 Hibiclens For Decolonization - TP HS JULIET Clopidogrel Bisulfate 75 mg 07/09/17 10:00 Plavix - PO DAILY JULIET Docusate Sodium 100 mg 07/08/17 13:20 Colace - PO Q8H PRN CONSTIPATION Fluticasone Propionate 1 spray 07/09/17 10:00 07/08/17 13:31 Flonase - NS 1 sprays DAILY JULIET Administration Gabapentin 600 mg 07/08/17 14:00 07/08/17 13:36 Neurontin - PO 600 mg QID JULIET Administration Cefazolin Sodium 1 gm/ 50 mls @ 100 mls/hr 07/08/17 18:00 Dextrose IVPB Q8H-IV JULIET Lactated Ringer's 1,000 mls @ 75 mls/hr 07/08/17 13:20 07/08/17 13:29 Lactated Ringers Solution IV Not Given ASDIR [facility] Lisinopril 20 mg 07/09/17 10:00 Prinivil PO DAILY [facility] Montelukast Sodium 10 mg 07/08/17 22:00 Singulair - PO HS [facility] Morphine Sulfate 2 mg 07/08/17 13:20 Morphine Sulfate IVPUSH Q4H PRN PAIN LEVEL 4 - 6 Morphine Sulfate 4 mg 07/08/17 13:52 Morphine Sulfate IVPUSH Q3H PRN PAIN LEVEL 7-10 Mupirocin 1 applic 07/08/17 22:00 Bactroban Ointment (For Decolonization) - NS 07/12/17 21:59 BID [facility] Nicotine 21 mg 07/09/17 10:00 Nicoderm Patch - TD DAILY [facility] Ondansetron HCl 4 mg 07/08/17 13:20 Zofran Injection IVPUSH Q6H PRN NAUSEA AND/OR VOMITING Pantoprazole Sodium 40 mg 07/09/17 10:00 Protonix - PO DAILY [facility] Polyethylene Glycol 17 gm 07/09/17 10:00 Miralax (For Daily Use) - PO DAILY [facility] Senna 2 tab 07/08/17 22:00 Senna - PO HS PRN CONSTIPATION Tiotropium [place] 1 puff 07/09/17 10:00 Spiriva - IH DAILY [facility] Verapamil HCl 180 mg 07/09/17 10:00 Calan Sr - PO DAILY [facility] Warfarin Sodium 2 mg 07/08/17 18:00 Coumadin - PO DAILY@1800 [facility] HTN, HLD, CAD s/p stent, COPD, PAD with left Femoral/Popliteal Thrombectomy/ Popliteal Anterior Tibial Bypass (x 2- 02/21 and 03/20/16) Now POD#3 , thrombosed left leg bypass s/p left femoral popliteal bypass with PTFE, angioplasty distal anterior tibial artery CTA reviewed: recommend GI eval for the noted CBD dilatation prominent than before. Treatment: now on /Plavix/Coumadin, start bridge will await hypercoag w/u Monitor Post op HCT closely Age appropriate malignancy screening in the OP setting. d/w Primary team
--- NOTE | 2017-07-09 16:00 | PATH ---
Surgical Pathology Report Patient Name: CANDY FOSTER Med. Rec. 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 Specimen(s) Received CLOT LEFT LOWER EXTREMETY Clinical History Occlusion of artery left lower extremity Final Diagnosis CLOT, LOWER EXTREMITY, LEFT, OPEN THROMBECTOMY: BLOOD/FIBRIN CLOT. Electronically Signed Afia Medina M.D. Gross Description Received in formalin labeled "clot left lower extremity," is a 3.5 cm in length x 0.3 cm in diameter red-brown blood clot. The specimen is submitted in toto in one cassette. /07/08/2017 saudi07/08/2017
[2017-07-09] MEDS: LACTATED RINGERS SOLUTION 1,000 ML IV SCH (16:34)
--- NOTE | 2017-07-09 16:44 | CON.GI ---
Consult Consult Specialty:: GI Reason for Consultation:: abnormal CAT scan findings, dilated CBD and PD - History of Present Illness History of Present Illness: Chart reviewed. Events noted. The patient is recovering from left lower extremity bypass. The most recent CT scan revealed dilated CBD and PD with normal intrahepatic biliary ducts, no other significant pathology, or ductal defects. Liver chemistry is essentially normal. Normal total bilirubin and alkaline phosphatase. Patient reports no history of acute, or recurrent pancreatitis, gallbladder disease, gallstone issues. Denies history of jaundice, dysphagia, odynophagia, chronic heartburn, melena, hematochezia, change in stool caliber. She tells me she is due for screening colonoscopy. The patient was evaluated by GI for the same in March of this year. At that time the imaging an blood work had similar findings. 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 Cardio/Vascular: Yes: CAD, HTN, Hyperlipdemia, Other (Cardiac stents placed, history of peripheral vascular disease) Pulmonary: Yes: COPD, Other (Former smoker) ...: No Musculoskeletal: Yes: Other (chronic back pain) - Past Surgical History Past Surgical History: Yes: Joint Replacement (left knee), Stent - Alcohol/Substance Use Hx Alcohol Use: No - Smoking History Smoking history: Former smoker Have you smoked in the past 12 months: Yes Aproximately how many cigarettes per day: 2 If you are a former smoker, when did you quit?: 02/2017 Home Medications - Allergies Allergies/Adverse Reactions: Allergies Allergy/AdvReac Type Severity Reaction Status Date / Time No Known Allergies Allergy Verified 07/05/17 22:05 - Home Medications Home Medications: Ambulatory Orders Gabapentin 600 mg PO QID 02/19/17 Montelukast Na [Singulair -] 10 mg PO HS 02/19/17 Verapamil HCl ER [Calan Sr -] 180 mg PO DAILY 02/19/17 Lisinopril [Prinivil] 20 mg PO DAILY #30 tablet 02/28/17 Pantoprazole Sodium [Protonix -] 40 mg PO DAILY #30 tablet.ec 02/28/17 Tiotropium [place] [Spiriva] 1 puff IH DAILY #1 inh 02/28/17 Atorvastatin Ca [Lipitor] 20 mg PO HS tablet 06/05/17 Cefuroxime Axetil [Ceftin -] 500 mg PO Q12H #14 tablet 06/05/17 Clopidogrel Bisulfate [Plavix -] 75 mg PO DAILY tablet 06/05/17 Docusate Sodium [Colace -] 100 mg PO Q8H PRN capsule 06/05/17 Fluconazole [Diflucan -] 200 mg PO DAILY #10 tablet 06/05/17 Nicotine Patch [Nicoderm Patch -] 21 mg TD DAILY patch 06/05/17 Polyethylene Glycol 3350 [Miralax 119 gm Btl -] 17 gm PO DAILY bottle 06/05/17 Sennosides [Senna -] 2 tab PO HS PRN tablet 06/05/17 Warfarin Sodium [Coumadin] 3 mg PO 07/05/17 Warfarin Sodium [Coumadin] 3.5 mg PO 07/05/17 Review of Systems Findings/Remarks: as per H&P and HPI Physical Exam-GI Vital Signs: Vital Signs Temperature 98.5 F 07/09/17 14:00 Pulse Rate 104 H 07/09/17 16:00 Respiratory Rate 21 07/09/17 16:00 Blood Pressure 106/67 07/09/17 16:00 O2 Sat by Pulse Oximetry (%) 100 07/09/17 09:00 Labs: CBC, BMP 07/09/17 06:00 07/09/17 06:00 INR, PTT INR 1.65 (0.82-1.09) H 07/09/17 06:00 Imaging - Results Cat Scan: Report Reviewed ( in March 2017 and June 2017) Ultrasound: Report Reviewed ( March 2017) Problem List - Problems (1) Common bile duct dilation Code(s): K83.8 - OTHER SPECIFIED DISEASES OF BILIARY TRACT (2) Dilation of pancreatic duct Code(s): K86.89 - OTHER SPECIFIED DISEASES OF PANCREAS Assessment/Plan Asymptomatic, common hepatic and pancreatic duct dilatation with no evidence of cholestasis and no obvious lesions on ultrasound and CT of the abdomen at [facility] since March of this year. No history of gastrointestinal, hepatic, pancreaticobiliary issues in the past. When the patient was evaluated in March for the same Recommend MRI/MRCP once LLE kami removed. EUS at [facility] is an alternative if MRCP cannot be done in a timely manner. Plan EGD on Wednesday to evaluate 2ns portion and the papilla. Discussed with the patient in detail.
--- NOTE | 2017-07-09 17:41 | PATH ---
Surgical Pathology Report Patient Name: CANDY FOSTER [facility]. Rec. #: [id number] /Age/Gender: 1950 (Age: 66) / F Account: [id number] Location: 4 W TELEMETRY U Taken: 07/07/2017 Received: 07/07/2017 Reported: 07/09/2017 Physicians: PHYSICIAN EMERGENCY DEPT Specimen(s) Received PERIPHERAL BLOOD Clinical History Anemia Final Diagnosis PAROXYSMAL NOCTURNAL HEMOGLOBINURIA ASSAY BY FLOW performed and interpreted at [place], [place] ([id number]) shows the following: INTERPRETATION: No phenotypic evidence of Paroxysmal Nocturnal Hemoglobulinuria (PNH). See Emerge report ([id number]) for additional details. JAK2 (V617F) MUTATION ANALYSIS BY PCR performed and interpreted at [place], [place] ([id number]) shows the following: RESULTS: Only the wild-type JAK2 sequence was detected. INTERPRETATION: Negative for JAK2 (V617F) Mutation. See [facility]ge report ([id number]) for additional details. Electronically Signed Afia Medina M.D. 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 Comment: Several different JAK2 mutations have been described in exon 12(and less commonly in exon 13) in cases of polycythemia vera that lack the V617F JAK2 mutation. JAK2 mutations are not detected in normal individuals. The presence of an Exon 12 or 13 mutation represents an acquired/somatic mutation associated with a hematopoietic neoplasm or possibly a rare normal sequence polymorphism. A negative result does not exclude the presence of an Exon 12 or 13 mutation at a level below the limit of detection for this assay. Correlation with clinical and morphologic features is recommended to interpret its significance. See Emerge report for details ([id number]). Afia Medina M.D.
[2017-07-09] MEDS: WARFARIN NA 2 MG TABLET (UD) PO SCH (18:27)
[2017-07-09] MEDS: MONTELUKAST NA 10 MG TABLET PO SCH (21:24)
[2017-07-09] MEDS: ATORVASTATIN CA 20 MG TABLET (FP) PO SCH (21:24)
[2017-07-09] MEDS: CHLORHEXIDINE GLUCONATE 4% CLEANSER FOR DECOLONIZATION TP SCH (21:37)
[2017-07-10] MEDS ORDERED: ceFAZolin SODIUM 1 GM VIAL ONE ×3 (01:59→18:27)
[2017-07-10] MEDS ORDERED: DEXTROSE 5%-WATER - 50 ML IVPB ONE ×3 (01:59→18:27)
[2017-07-10] MEDS: CEFAZOLIN 1 GM in DEXTROSE 5%-WATER - 50 ML IVPB SCH ×3 (02:06→19:00)
[2017-07-10] MEDS: oxyCODONE HCL 5 MG TABLET PO PRN ×2 (03:37→14:05)
[2017-07-10] MEDS: ACETAMINOPHEN 325 MG TABLET (FP) PO PRN (03:39)
[2017-07-10] MEDS: morphine SULFATE 4 MG/ML VIAL IVPUSH PRN ×3 (06:29→23:42)
[2017-07-10 06:48] LABS: BASO % 0.4 % (0-2.0); EOS % 3.6 % (0-4.5); HEMATOCRIT 25.7 % (32.4-45.2); HEMOGLOBIN 8.4 GM/dL (10.7-15.3); LYMPH % 27.6 % (8-40); MCH 29.6 pg (25.7-33.7); MCHC 32.6 g/dl (32.0-36.0); MEAN CELL VOLUME 90.9 fl (80-96); MEAN PLT VOLUME 10.1 fl (7.5-11.1); MONO % 11.3 % (3.8-10.2); NEUT % 57.1 % (42.8-82.8); PLATELET COUNT 228 K/MM3 (134-434); RBC 2.83 M/mm3 (3.60-5.2); WHITE BLOOD COUNT 8.3 K/mm3 (4.0-10.0)
[2017-07-10 06:56] LABS: INR 1.67 (0.82-1.09); PROTHROMBIN TIME (PATIENT) 18.9 SEC (9.7-13.0)
[2017-07-10 06:59] LABS: ACTIVATED PTT 36.2 SECONDS (26.9-34.4)
[2017-07-10 07:11] LABS: ALBUMIN 2.5 g/dl (3.4-5.0); ANION GAP 2 (8-16); BLOOD UREA NITROGEN 17 mg/dL (7-18); CHLORIDE 106 mmol/L (98-107); CO2 33 mmol/L (21-32); GLUCOSE,RANDOM 85 mg/dL (74-106); MAGNESIUM 1.6 mg/dL (1.8-2.4); POTASSIUM 5.3 mmol/L (3.5-5.1); SODIUM 141 mmol/L (136-145)
[2017-07-10 07:15] LABS: ALK PHOS 58 U/L (45-117); BILIRUBIN,TOTAL 0.3 mg/dL (0.2-1.0); CREATININE 0.7 mg/dL (0.55-1.02); PHOSPHOROUS 3.1 mg/dL (2.5-4.9); SGOT/AST 16 U/L (15-37); SGPT/ALT 12 U/L (12-78); TOT PROT 5.3 g/dl (6.4-8.2)
--- NOTE | 2017-07-10 08:25 | PN ---
Progress Note (short form) - Note Progress Note: Patient is comfortable no acute distress. Vital Signs Temperature 98.1 F 07/10/17 06:00 Pulse Rate 63 07/10/17 06:00 Respiratory Rate 20 07/10/17 06:00 Blood Pressure 115/81 07/10/17 06:00 O2 Sat by Pulse Oximetry (%) 100 07/09/17 20:33 GENERAL: The patient is awake, alert, and fully oriented, in no acute distress. HEAD: Normal with no signs of trauma. EYES: PERRL, extraocular movements intact, sclera anicteric, conjunctiva clear. ENT: Ears normal, oropharynx clear without exudates, moist mucous membranes. NECK: Trachea midline, full range of motion, supple. LUNGS: Breath sounds equal, clear to auscultation bilaterally, no wheezes, no crackles, no accessory muscle use. HEART: Regular rate and rhythm, S1, S2 without murmur, rub or gallop. ABDOMEN: Soft, nontender, nondistended, normoactive bowel sounds, no guarding, no rebound, no hepatosplenomegaly, no masses. EXTREMITIES: 2+ pulses, warm, well-perfused, no edema. NEUROLOGICAL: Cranial nerves II through XII grossly intact. Normal speech, gait not observed. PSYCH: Normal mood, normal affect. SKIN: Warm, dry, normal turgor, no rashes or lesions noted CBCD WBC 8.3 K/mm3 (4.0-10.0) D 07/10/17 06:30 RBC 2.83 M/mm3 (3.60-5.2) L 07/10/17 06:30 Hgb 8.4 GM/dL (10.7-15.3) L 07/10/17 06:30 Hct 25.7 % (32.4-45.2) L 07/10/17 06:30 MCV 90.9 fl (80-96) 07/10/17 06:30 MCHC 32.6 g/dl (32.0-36.0) 07/10/17 06:30 RDW 19.0 % (11.6-15.6) H 07/10/17 06:30 Plt Count 228 K/MM3 (134-434) D 07/10/17 06:30 MPV 10.1 fl (7.5-11.1) 07/10/17 06:30 CMP Sodium 141 mmol/L (136-145) 07/10/17 06:30 Potassium 5.3 mmol/L (3.5-5.1) H 07/10/17 06:30 Chloride 106 mmol/L (98-107) 07/10/17 06:30 Carbon Dioxide 33 mmol/L (21-32) H 07/10/17 06:30 Anion Gap 2 (8-16) L 07/10/17 06:30 BUN 17 mg/dL (7-18) 07/10/17 06:30 Creatinine 0.7 mg/dL (0.55-1.02) 07/10/17 06:30 Creat Clearance w eGFR > 60 (>60) 07/10/17 06:30 Random Glucose 85 mg/dL (74-106) 07/10/17 06:30 Calcium 8.0 mg/dL (8.5-10.1) L 07/10/17 06:30 Total Bilirubin 0.3 mg/dL (0.2-1.0) D 07/10/17 06:30 AST 16 U/L (15-37) 07/10/17 06:30 ALT 12 U/L (12-78) 07/10/17 06:30 Alkaline Phosphatase 58 U/L (45-117) 07/10/17 06:30 Total Protein 5.3 g/dl (6.4-8.2) L 07/10/17 06:30 Albumin 2.5 g/dl (3.4-5.0) L 07/10/17 06:30 CARDIAC ENZYMES Creatine Kinase 77 IU/L (26-192) 07/06/17 01:35 Troponin I 0.04 ng/ml (0.00-0.05) 07/06/17 01:35 Current Medications Generic Name Dose Route Start Last Admin Trade Name Freq PRN Reason Stop Dose Admin Acetaminophen 650 mg 07/08/17 15:59 07/10/17 03:39 Tylenol - PO 650 mg Q6H PRN Administration FEVER Albuterol Sulfate 1 amp 07/08/17 15:59 Ventolin 0.083% Nebulizer Soln - NEB Q4H PRN SHORT OF BREATH/WHEEZING Albuterol Sulfate 1 amp 07/08/17 16:00 07/09/17 21:16 Ventolin 0.083% Nebulizer Soln - NEB 1 amp RQID JULIET Administration Atorvastatin Calcium 20 mg 07/08/17 22:00 07/09/17 21:24 Lipitor - PO 20 mg HS JULIET Administration Chlorhexidine Gluconate 1 applic 07/08/17 22:00 07/09/17 21:37 Hibiclens For Decolonization - TP 1 applic HS JULIET Administration Clopidogrel Bisulfate 75 mg 07/09/17 10:00 07/09/17 10:03 Plavix - PO 75 mg DAILY JULIET Administration Docusate Sodium 100 mg 07/08/17 15:59 Colace - PO Q8H PRN CONSTIPATION Enoxaparin Sodium 70 mg 07/09/17 11:30 07/09/17 21:24 Lovenox - SQ 70 mg BID JULIET Administration Fluticasone Propionate 1 spray 07/09/17 10:00 07/09/17 10:02 Flonase - NS 1 spray DAILY JULIET Administration Gabapentin 600 mg 07/08/17 18:00 07/09/17 21:24 Neurontin - PO 600 mg QID JULIET Administration Cefazolin Sodium 1 gm/ 50 mls @ 100 mls/hr 07/08/17 18:00 07/10/17 02:06 Dextrose IVPB 100 mls/hr Q8H-IV JULIET Administration Lisinopril 20 mg 07/09/17 10:00 07/09/17 10:03 Prinivil PO 20 mg DAILY JULIET Administration Montelukast Sodium 10 mg 07/08/17 22:00 07/09/17 21:24 Singulair - PO 10 mg HS JULIET Administration Morphine Sulfate 2 mg 07/08/17 15:59 07/10/17 06:29 Morphine Sulfate IVPUSH 2 mg Q4H PRN Administration PAIN LEVEL 7 - 10 Mupirocin 1 applic 07/08/17 22:00 07/09/17 21:37 Bactroban Ointment (For Decolonization) - NS 07/12/17 21:59 1 applic BID JULIET Administration Nicotine 21 mg 07/09/17 10:00 07/09/17 10:03 Nicoderm Patch - TD 21 mg DAILY JULIET Administration Ondansetron HCl 4 mg 07/08/17 15:59 Zofran Injection IVPUSH Q6H PRN NAUSEA AND/OR VOMITING Oxycodone HCl 5 mg 07/08/17 15:59 07/08/17 22:33 Roxicodone - PO 5 mg Q4H PRN Administration PAIN LEVEL 1-3 Oxycodone HCl 10 mg 07/08/17 15:59 07/10/17 03:37 Roxicodone - PO 10 mg Q6H PRN Administration PAIN LEVEL 4 - 6 Pantoprazole Sodium 40 mg 07/09/17 10:00 07/09/17 10:03 Protonix - PO 40 mg DAILY JULIET Administration Polyethylene Glycol 17 gm 07/09/17 10:00 07/09/17 10:05 Miralax (For Daily Use) - PO 17 grams DAILY JULIET Administration Senna 2 tab 07/08/17 22:00 Senna - PO HS PRN CONSTIPATION Tiotropium [place] 1 puff 07/09/17 10:00 07/09/17 10:01 Spiriva - IH 1 puff DAILY JULIET Administration Verapamil HCl 180 mg 07/09/17 10:00 07/09/17 10:04 Calan Sr - PO 180 mg DAILY JULIET Administration Warfarin Sodium 2 mg 07/08/17 18:00 07/09/17 18:27 Coumadin - PO 2 mg DAILY@1800 JULIET Administration Home Medications Medication Instructions Recorded Gabapentin 600 mg PO QID 02/19/17 Montelukast Na [Singulair -] 10 mg PO HS 02/19/17 Verapamil HCl ER [Calan Sr -] 180 mg PO DAILY 02/19/17 Lisinopril [Prinivil] 20 mg PO DAILY #30 tablet 02/28/17 Pantoprazole Sodium [Protonix -] 40 mg PO DAILY #30 tablet.ec 02/28/17 Tiotropium [place] [Spiriva] 1 puff IH DAILY #1 inh 02/28/17 Atorvastatin Ca [Lipitor] 20 mg PO HS tablet 06/05/17 Cefuroxime Axetil [Ceftin -] 500 mg PO Q12H #14 tablet 06/05/17 Clopidogrel Bisulfate [Plavix -] 75 mg PO DAILY tablet 06/05/17 Docusate Sodium [Colace -] 100 mg PO Q8H PRN capsule 06/05/17 Fluconazole [Diflucan -] 200 mg PO DAILY #10 tablet 06/05/17 Nicotine Patch [Nicoderm Patch -] 21 mg TD DAILY patch 06/05/17 Polyethylene Glycol 3350 [Miralax 17 gm PO DAILY bottle 06/05/17 119 gm Btl -] Sennosides [Senna -] 2 tab PO HS PRN tablet 06/05/17 Warfarin Sodium [Coumadin] 3 mg PO 07/05/17 Warfarin Sodium [Coumadin] 3.5 mg PO 07/05/17 ASSESSMENT AND PLAN: This is a 66 year old woman with a history of PAD, LLE bypass, CAD, stent, HTN, hyperlipidemia, COPD who presented to the ED with left leg pain. # PAD with left foot Ischemia s/p left femoral and popliteal thrombectomy, popliteal anterior tibial bypass 03/20/17. s/p left femoral popliteal bypass, angioplasty of distal anterior tibial artery, thrombectomy of tibial bypass graft 07/07, On Plavix, Lipitor, continue coumadin with Lovenox since patient has subtherapeutic INR of 1.65--> 1.67 today. vascular surgeon on the case. repeat daily INR. # CAD, history of stents: Continue Plavix, Lipitor # COPD Stable, Continue Singulair, Spiriva, albuterol nebs, SoluMedrol given perioperatively # HTN Continue Lisinopril, Calan SR # Hyperlipidemia Continue Lipitor # Prolonged QTc # Nicotine dependence Continue nicotine patch DVT PX: Lovenox,coumadin Visit type - Emergency Visit Emergency Visit: Yes ED Registration Date: 07/06/17 Care time: The patient presented to the Emergency Department on the above date and was hospitalized for further evaluation of their emergent condition. - New Patient This patient is new to me today: No - Critical Care Critical Care patient: No - Discharge Referral Referred to [facility] Med P.C.: No
[2017-07-10] MEDS: MUPIROCIN 2% TOPICAL OINTMENT FOR DECOLONIZATION NS SCH ×2 (09:03→21:52)
[2017-07-10] MEDS: LISINOPRIL 20 MG TABLET (FP) PO SCH (09:04)
[2017-07-10] MEDS: GABAPENTIN 300 MG CAPSULE (FP) PO SCH ×4 (09:04→22:20)
[2017-07-10] MEDS: CLOPIDOGREL BISULFATE 75 MG TABLET (FP) PO SCH (09:04)
[2017-07-10] MEDS: TIOTROPIUM BROMIDE 18 MCG CAPSULES IH SCH (09:04)
[2017-07-10] MEDS: NICOTINE 21 MG/24 HOURS TOPICAL PATCH TD SCH (09:05)
[2017-07-10] MEDS: PANTOPRAZOLE 40 MG TABLET (FP) PO SCH (09:05)
[2017-07-10] MEDS: ENOXAPARIN NA (PORCINE) 80 MG/0.8 ML DISP.SYRIN SQ SCH (09:05)
[2017-07-10] MEDS: VERAPAMIL HCL 180 MG E.R. TABLET (FP) PO SCH (09:09)
[2017-07-10] MEDS: POLYETHYLENE GLYCOL 3350 119 GM BTL PO SCH (09:09)
[2017-07-10] MEDS: FLUTICASONE PROP 0.05% 16 GM NASAL SPRAY NS SCH (09:09)
[2017-07-10] MEDS: ALBUTEROL SO4 0.083% IH SOL 2.5 MG/3 ML VIAL.NEB. NEB SCH ×4 (09:22→20:26)
--- NOTE | 2017-07-10 11:51 | PN ---
Progress Note (short form) - Note Progress Note: POD 2 No c/o VSS Dressings clean and dry Foot warm, palpable DP Hgb 8.4 Stable course, s/p left fem-pop bypass OOB, physical therapy Lovenox, adjust Coumadin
--- NOTE | 2017-07-10 12:41 | PN ---
Progress Note, Physician Chief Complaint: Feeling better. Events noted Remains in ICU post OP #3 History of Present Illness: Patient was seen and examined. Awake and alert. Chart was reviewed Denies chest pain, SOB or palpitations Left lower extremity warm - Current Medication List Current Medications: Active Medications Acetaminophen (Tylenol -) 650 mg PO Q6H PRN PRN Reason: FEVER Last Admin: 07/10/17 03:39 Dose: 650 mg Albuterol Sulfate (Ventolin 0.083% Nebulizer Soln -) 1 amp NEB Q4H PRN PRN Reason: SHORT OF BREATH/WHEEZING Albuterol Sulfate (Ventolin 0.083% Nebulizer Soln -) 1 amp NEB RQID [facility] Last Admin: 07/10/17 09:22 Dose: 1 amp Atorvastatin Calcium (Lipitor -) 20 mg PO HS [facility] Last Admin: 07/09/17 21:24 Dose: 20 mg Chlorhexidine Gluconate (Hibiclens For Decolonization -) 1 applic TP [facility] Last Admin: 07/09/17 21:37 Dose: 1 applic Clopidogrel Bisulfate (Plavix -) 75 mg PO DAILY [facility] Last Admin: 07/10/17 09:04 Dose: 75 mg Docusate Sodium (Colace -) 100 mg PO Q8H PRN PRN Reason: CONSTIPATION Enoxaparin Sodium (Lovenox -) 70 mg SQ BID [facility] Last Admin: 07/10/17 09:05 Dose: 70 mg Fluticasone Propionate (Flonase -) 1 spray NS DAILY [facility] Last Admin: 07/10/17 09:09 Dose: 1 spray Gabapentin (Neurontin -) 600 mg PO QID [facility] Last Admin: 07/10/17 09:04 Dose: 600 mg Cefazolin Sodium 1 gm/ (Dextrose) 50 mls @ 100 mls/hr IVPB Q8H-IV [facility] Last Admin: 07/10/17 09:02 Dose: 100 mls/hr Lisinopril (Prinivil) 20 mg PO DAILY [facility] Last Admin: 07/10/17 09:04 Dose: 20 mg Montelukast Sodium (Singulair -) 10 mg PO HS [facility] Last Admin: 07/09/17 21:24 Dose: 10 mg Morphine Sulfate (Morphine Sulfate) 2 mg IVPUSH Q4H PRN PRN Reason: PAIN LEVEL 7 - 10 Last Admin: 07/10/17 06:29 Dose: 2 mg Mupirocin (Bactroban Ointment (For Decolonization) -) 1 applic NS BID [facility] Stop: 07/12/17 21:59 Last Admin: 07/10/17 09:03 Dose: 1 applic Nicotine (Nicoderm Patch -) 21 mg TD DAILY [facility] Last Admin: 07/10/17 09:05 Dose: 21 mg Ondansetron HCl (Zofran Injection) 4 mg IVPUSH Q6H PRN PRN Reason: NAUSEA AND/OR VOMITING Oxycodone HCl (Roxicodone -) 5 mg PO Q4H PRN PRN Reason: PAIN LEVEL 1-3 Last Admin: 07/08/17 22:33 Dose: 5 mg Oxycodone HCl (Roxicodone -) 10 mg PO Q6H PRN PRN Reason: PAIN LEVEL 4 - 6 Last Admin: 07/10/17 03:37 Dose: 10 mg Pantoprazole Sodium (Protonix -) 40 mg PO DAILY [facility] Last Admin: 07/10/17 09:05 Dose: 40 mg Polyethylene Glycol (Miralax (For Daily Use) -) 17 gm PO DAILY [facility] Last Admin: 07/10/17 09:09 Dose: 17 grams Senna (Senna -) 2 tab PO HS PRN PRN Reason: CONSTIPATION Tiotropium [place] (Spiriva -) 1 puff IH DAILY [facility] Last Admin: 07/10/17 09:04 Dose: 1 puff Verapamil HCl (Calan Sr -) 180 mg PO DAILY [facility] Last Admin: 07/10/17 09:09 Dose: 180 mg Warfarin Sodium (Coumadin -) 2 mg PO DAILY@1800 [facility] Last Admin: 07/09/17 18:27 Dose: 2 mg - Objective Vital Signs: Vital Signs Temperature 98.6 F 07/10/17 10:00 Pulse Rate 64 07/10/17 10:00 Respiratory Rate 20 07/10/17 10:00 Blood Pressure 112/86 07/10/17 10:00 O2 Sat by Pulse Oximetry (%) 100 07/10/17 09:00 Eyes: Yes: PERRL HENT: Yes: Atraumatic Neck: Yes: Supple Cardiovascular: Yes: Regular Rate and Rhythm, S1, S2 Respiratory: Yes: CTA Bilaterally Gastrointestinal: Yes: Normal Bowel Sounds, Soft. No: Tenderness Edema: No Additional Findings/Remarks: - Review of Systems Constitutional: denies: Chills, Fever Cardiovascular: denies: Chest Pain, Palpitations, Shortness of Breath Respiratory: denies: Cough, Hemoptysis, Orthopnea, PND, SOB, SOB on Exertion, Wheezing Gastrointestinal: denies: Abdominal Pain, Constipation, Diarrhea, Melena, Nausea , Rectal Bleeding, Vomiting Neurological: denies: Dizziness, Headache, Seizure, Syncope, Weakness Labs: CBC, BMP 07/10/17 06:30 07/10/17 06:30 INR, PTT INR 1.67 (0.82-1.09) H 07/10/17 06:30 Problem List - Problems (1) Arterial occlusion, lower extremity Code(s): I70.209 - UNSP ATHSCL [place] ARTERIES OF EXTREMITIES, UNSP EXTREMITY (2) CAD (coronary artery disease) Code(s): I25.10 - ATHSCL HEART DISEASE OF [place] CORONARY ARTERY W/O ANG PCTRS Qualifiers: Coronary Disease-Associated Artery/Lesion type: [place] artery [place] vs. transplanted heart: [place] heart Associated angina: without angina Qualified Code(s): I25.10 - Atherosclerotic heart disease of [place] coronary artery without angina pectoris (3) COPD exacerbation Code(s): J44.1 - CHRONIC OBSTRUCTIVE PULMONARY DISEASE W (ACUTE) EXACERBATION (4) PAD (peripheral artery disease) Code(s): I73.9 - PERIPHERAL VASCULAR DISEASE, UNSPECIFIED (5) Paresthesia and pain of left extremity Code(s): M79.609 - PAIN IN UNSPECIFIED LIMB; R20.2 - PARESTHESIA OF SKIN (6) S/P coronary artery stent placement Code(s): Z95.5 - PRESENCE OF CORONARY ANGIOPLASTY IMPLANT AND GRAFT (7) Status post peripheral artery angioplasty with insertion of stent Code(s): Z95.820 - PERIPHERAL VASCULAR ANGIOPLASTY STATUS W IMPLANTS AND GRAFTS (8) HTN (hypertension) Code(s): I10 - ESSENTIAL (PRIMARY) HYPERTENSION Qualifiers: Hypertension type: essential hypertension Qualified Code(s): I10 - Essential (primary) hypertension (9) Hyperlipemia, mixed Code(s): E78.2 - MIXED HYPERLIPIDEMIA Assessment/Plan 1. Peripheral artery disease POD#3 h/o fem-pop bypass with thrombosed left leg bypass s/p left femoral popliteal bypass with PTFE, angioplasty distal anterior tibial artery 2. CAD s/p PCI/stent, angina 3. Hypertension 4. Hypercholesterolemia 5. COPD with long standing history of cigarette smoking 6. Anemia PLAN: 1. Continue Lipitor 20 qhs, Lisinopril 20 qd and Verapamil SR 180 qd as tolerated 2. Continue Coumadin per INR and Plavix. Patient is also receiving Lovenox 3. IV steroids with GI protection, bronchodilator, Singulair and O2 as needed 4. Vascular surgical follow up Further plan are to follow Artie Alvarado MD
--- NOTE | 2017-07-10 14:50 | PN ---
Progress Note (short form) - Note Progress Note: Pulm/CCM SUBJECTIVE: Patient seen and examined in the ICU. 24HR -no distress -good pulses in for tele bed Vital Signs Temp 99.1 F 07/10/17 14:00 Pulse 92 H 07/10/17 14:00 Resp 20 07/10/17 14:00 BP 130/56 07/10/17 14:00 Pulse Ox 100 07/10/17 09:00 Intake & Output 07/09/17 07/10/17 07/10/17 23:59 11:59 23:59 Intake Total 2045 200 Output Total 650 3 Balance 1395 197 Weight 72.575 kg Intake: IV 825 Lactated Ringers Solution 825 1,000 ml @ 75 mls/hr IV ASDIR [facility] Rx#:[id number] IVPB 100 Oral 1120 200 Output: Urine 650 3 [place] 500 Void 150 3 Other: Voiding Method Bedpan Bedpan # Unmeasured Voids Void 3 1 Bowel Movement No Yes: exlarge Weight Measurement Method [facility] Active Medications Acetaminophen (Tylenol -) 650 mg PO Q6H PRN PRN Reason: FEVER Last Admin: 07/10/17 03:39 Dose: 650 mg Albuterol Sulfate (Ventolin 0.083% Nebulizer Soln -) 1 amp NEB Q4H PRN PRN Reason: SHORT OF BREATH/WHEEZING Albuterol Sulfate (Ventolin 0.083% Nebulizer Soln -) 1 amp NEB RQID [facility] Last Admin: 07/10/17 12:15 Dose: 1 amp Atorvastatin Calcium (Lipitor -) 20 mg PO [facility] Last Admin: 07/09/17 21:24 Dose: 20 mg Chlorhexidine Gluconate (Hibiclens For Decolonization -) 1 applic TP [facility] Last Admin: 07/09/17 21:37 Dose: 1 applic Clopidogrel Bisulfate (Plavix -) 75 mg PO DAILY [facility] Last Admin: 07/10/17 09:04 Dose: 75 mg Docusate Sodium (Colace -) 100 mg PO Q8H PRN PRN Reason: CONSTIPATION Enoxaparin Sodium (Lovenox -) 70 mg SQ BID [facility] Last Admin: 07/10/17 09:05 Dose: 70 mg Fluticasone Propionate (Flonase -) 1 spray NS DAILY [facility] Last Admin: 07/10/17 09:09 Dose: 1 spray Gabapentin (Neurontin -) 600 mg PO QID [facility] Last Admin: 07/10/17 14:06 Dose: 600 mg Cefazolin Sodium 1 gm/ (Dextrose) 50 mls @ 100 mls/hr IVPB Q8H-IV [facility] Last Admin: 07/10/17 09:02 Dose: 100 mls/hr Lisinopril (Prinivil) 20 mg PO DAILY [facility] Last Admin: 07/10/17 09:04 Dose: 20 mg Montelukast Sodium (Singulair -) 10 mg PO HS [facility] Last Admin: 07/09/17 21:24 Dose: 10 mg Morphine Sulfate (Morphine Sulfate) 2 mg IVPUSH Q4H PRN PRN Reason: PAIN LEVEL 7 - 10 Last Admin: 07/10/17 06:29 Dose: 2 mg Mupirocin (Bactroban Ointment (For Decolonization) -) 1 applic NS BID [facility] Stop: 07/12/17 21:59 Last Admin: 07/10/17 09:03 Dose: 1 applic Nicotine (Nicoderm Patch -) 21 mg TD DAILY [facility] Last Admin: 07/10/17 09:05 Dose: 21 mg Ondansetron HCl (Zofran Injection) 4 mg IVPUSH Q6H PRN PRN Reason: NAUSEA AND/OR VOMITING Oxycodone HCl (Roxicodone -) 5 mg PO Q4H PRN PRN Reason: PAIN LEVEL 1-3 Last Admin: 07/08/17 22:33 Dose: 5 mg Oxycodone HCl (Roxicodone -) 10 mg PO Q6H PRN PRN Reason: PAIN LEVEL 4 - 6 Last Admin: 07/10/17 14:05 Dose: 10 mg Pantoprazole Sodium (Protonix -) 40 mg PO DAILY [facility] Last Admin: 07/10/17 09:05 Dose: 40 mg Polyethylene Glycol (Miralax (For Daily Use) -) 17 gm PO DAILY [facility] Last Admin: 07/10/17 09:09 Dose: 17 grams Senna (Senna -) 2 tab PO HS PRN PRN Reason: CONSTIPATION Tiotropium [place] (Spiriva -) 1 puff IH DAILY [facility] Last Admin: 07/10/17 09:04 Dose: 1 puff Verapamil HCl (Calan Sr -) 180 mg PO DAILY [facility] Last Admin: 07/10/17 09:09 Dose: 180 mg Warfarin Sodium (Coumadin -) 2 mg PO DAILY@1800 [facility] Last Admin: 07/09/17 18:27 Dose: 2 mg Constitutional: Awake, pleasant , approriate mood, no distress Eyes: EOMI, PERRL HENT: Yes: Atraumatic, Normocephalic Neck: Yes: Supple, Trachea Midline Cardiovascular: Yes: S1, S2 Respiratory: Clear anterior Gastrointestinal: Yes: Normal Bowel Sounds, Soft Renal/: Yes: [place]man Present Extremities: Yes: Other (RLE warm; + pulse LLE pink and warm with palpable DP Edema: No Peripheral Pulses WNL: 1+ DP pulses Wound/Incision: Yes: Dressing Dry and Intact , no drainage Neurological: Yes: Alert, Oriented Psychiatric: Yes: WNL Labs: Laboratory Results - last 24 hr 07/06/17 07/07/17 07/10/17 06:00 06:00 06:30 WBC 8.3 D RBC 2.83 L Hgb 8.4 L Hct 25.7 L MCV 90.9 MCH 29.6 MCHC 32.6 RDW 19.0 H Plt Count 228 D MPV 10.1 Neutrophils % 57.1 D Lymphocytes % 27.6 D Monocytes % 11.3 H Eosinophils % 3.6 D Basophils % 0.4 PT with INR INR PTT (Actin FS) Sodium Potassium Chloride Carbon Dioxide Anion Gap BUN Creatinine Creat Clearance w eGFR Random Glucose Calcium Phosphorus Magnesium Total Bilirubin AST ALT Alkaline Phosphatase Total Protein Albumin Beta Globulins 0.9 NATALIA & SPEP Interp Total Protein (NATALIA) 6.3 Albumin (NATALIA) 3.2 Albumin/Globulin (NATALIA) 1.1 Kbsnf-3-Ajqndncip NATALIA 0.3 Ykfby-6-Fjlbtyjdz NATALIA 1.1 H Gamma Globulins (NATALIA) 0.9 NATALIA M-Steve Not observed NATALIA Comments IEP IgG 731 IEP IgA 187 IEP IgM 84 Blood Type A POSITIVE Antibody Screen Negative Crossmatch IS Only See Detail 07/10/17 07/10/17 06:30 06:30 WBC RBC Hgb Hct MCV MCH MCHC RDW Plt Count MPV Neutrophils % Lymphocytes % Monocytes % Eosinophils % Basophils % PT with INR 18.90 H INR 1.67 H PTT (Actin FS) 36.2 H Sodium 141 Potassium 5.3 H Chloride 106 Carbon Dioxide 33 H Anion Gap 2 L BUN 17 Creatinine 0.7 Creat Clearance w eGFR > 60 Random Glucose 85 Calcium 8.0 L Phosphorus 3.1 Magnesium 1.6 L Total Bilirubin 0.3 D AST 16 ALT 12 Alkaline Phosphatase 58 Total Protein 5.3 L Albumin 2.5 L Beta Globulins NATALIA & SPEP Interp Total Protein (NATALIA) Albumin (NATALIA) Albumin/Globulin (NATALIA) Krzuq-1-Jbsdvmqbc NATALIA Lsymx-0-Lbttrfvwx NATALIA Gamma Globulins (NATALIA) NATALIA M-Steve NATALIA Comments IEP IgG IEP IgA IEP IgM Blood Type Antibody Screen Crossmatch IS Only Problem List - Problems (1) Arterial occlusion, lower extremity Code(s): I70.209 - UNSP ATHSCL [place] ARTERIES OF EXTREMITIES, UNSP EXTREMITY (2) CAD (coronary artery disease) Code(s): I25.10 - ATHSCL HEART DISEASE OF [place] CORONARY ARTERY W/O ANG PCTRS Qualifiers: Coronary Disease-Associated Artery/Lesion type: [place] artery [place] vs. transplanted heart: [place] heart Associated angina: without angina Qualified Code(s): I25.10 - Atherosclerotic heart disease of [place] coronary artery without angina pectoris (3) COPD exacerbation Code(s): J44.1 - CHRONIC OBSTRUCTIVE PULMONARY DISEASE W (ACUTE) EXACERBATION (4) Cellulitis Code(s): L03.90 - CELLULITIS, UNSPECIFIED (5) Left leg weakness Code(s): M62.81 - MUSCLE WEAKNESS (GENERALIZED) (6) Leg pain, left Code(s): M79.605 - PAIN IN LEFT LEG (7) PAD (peripheral artery disease) Code(s): I73.9 - PERIPHERAL VASCULAR DISEASE, UNSPECIFIED (8) Pain Code(s): R52 - PAIN, UNSPECIFIED (9) Paresthesia and pain of left extremity Code(s): M79.609 - PAIN IN UNSPECIFIED LIMB; R20.2 - PARESTHESIA OF SKIN (10) Peripheral vascular disease Code(s): I73.9 - PERIPHERAL VASCULAR DISEASE, UNSPECIFIED (11) Status post peripheral artery angioplasty with insertion of stent Code(s): Z95.820 - PERIPHERAL VASCULAR ANGIOPLASTY STATUS W IMPLANTS AND GRAFTS (12) Hyperlipemia, mixed Code(s): E78.2 - MIXED HYPERLIPIDEMIA Assessment/Plan POD #1 Left femoral popliteal bypass with PTFE. Angioplasty distal anterior tibial artery. Thrombectomy tibial bypass graft. COPD, active smoker CAD S/P PCI/stent HPL PAD S/P bilateral SFA stent Plan: -serial pulse check -Monitor surgical site for bleeding -Pain management with prn morphine -BP monitoring -Monitor coags and CBC -AC with Coumadin -Supplemental O2 to maintain saturation -Cont COPD regimen, Bagonist, steroids -Cont statins -PO as tolerated -Ok for Cardiac Telemetry floor Yudi THURMAN [id number]
[2017-07-10] MEDS: WARFARIN NA 2 MG TABLET (UD) PO SCH (19:00)
[2017-07-10] MEDS ORDERED: ALBUTEROL SO4 0.083% IH SOL 2.5 MG/3 ML VIAL.NEB. NEB PRN (20:25)
[2017-07-10] MEDS ORDERED: SENNOSIDES 8.6MG TABLET (FP) PO PRN (20:25)
[2017-07-10] MEDS ORDERED: ONDANSETRON 4 MG/2 ML VIAL IVPUSH PRN (20:25)
[2017-07-10] MEDS ORDERED: DOCUSATE SODIUM 100 MG CAPSULE (FP) PO PRN (20:25)
[2017-07-10] MEDS: CHLORHEXIDINE GLUCONATE 4% CLEANSER FOR DECOLONIZATION TP SCH (21:52)
[2017-07-10] MEDS: MONTELUKAST NA 10 MG TABLET PO SCH (22:20)
[2017-07-10] MEDS: ENOXAPARIN NA (PORCINE) 40 MG/0.4 ML DISP.SYRIN SQ SCH (22:20)
[2017-07-10] MEDS: ATORVASTATIN CA 20 MG TABLET (FP) PO SCH (22:20)
[2017-07-11] MEDS ORDERED: ceFAZolin SODIUM 1 GM VIAL ONE ×3 (01:26→17:15)
[2017-07-11] MEDS ORDERED: DEXTROSE 5%-WATER - 50 ML IVPB ONE ×3 (01:27→17:15)
[2017-07-11] MEDS: CEFAZOLIN 1 GM in DEXTROSE 5%-WATER - 50 ML IVPB SCH ×3 (01:39→17:23)
[2017-07-11] MEDS: oxyCODONE HCL 5 MG TABLET PO PRN ×4 (01:50→18:02)
[2017-07-11] MEDS: ACETAMINOPHEN 325 MG TABLET (FP) PO PRN ×3 (01:59→18:05)
[2017-07-11] MEDS: ALBUTEROL SO4 0.083% IH SOL 2.5 MG/3 ML VIAL.NEB. NEB SCH ×4 (07:53→20:35)
--- NOTE | 2017-07-11 09:30 | PN ---
Progress Note, Physician Chief Complaint: Feeling better. Events noted Moved to telemetry Hemodynamically stable History of Present Illness: Patient was seen and examined. Awake and alert. Chart was reviewed Denies chest pain, SOB or palpitations - Current Medication List Current Medications: Active Medications Acetaminophen (Tylenol -) 650 mg PO Q6H PRN PRN Reason: FEVER Last Admin: 07/11/17 01:59 Dose: 650 mg Albuterol Sulfate (Ventolin 0.083% Nebulizer Soln -) 1 amp NEB Q4H PRN PRN Reason: SHORT OF BREATH/WHEEZING Albuterol Sulfate (Ventolin 0.083% Nebulizer Soln -) 1 amp NEB RQID [facility] Atorvastatin Calcium (Lipitor -) 20 mg PO [facility] Last Admin: 07/10/17 22:20 Dose: 20 mg Chlorhexidine Gluconate (Hibiclens For Decolonization -) 1 applic TP [facility] Last Admin: 07/10/17 21:52 Dose: Not Given Clopidogrel Bisulfate (Plavix -) 75 mg PO DAILY [facility] Docusate Sodium (Colace -) 100 mg PO Q8H PRN PRN Reason: CONSTIPATION Enoxaparin Sodium (Lovenox -) 70 mg SQ BID [facility] Last Admin: 07/10/17 22:20 Dose: 70 mg Fluticasone Propionate (Flonase -) 1 spray NS DAILY [facility] Gabapentin (Neurontin -) 600 mg PO QID [facility] Last Admin: 07/10/17 22:20 Dose: 600 mg Cefazolin Sodium 1 gm/ (Dextrose) 50 mls @ 100 mls/hr IVPB Q8H-IV [facility] Last Admin: 07/11/17 01:39 Dose: 100 mls/hr Lisinopril (Prinivil) 20 mg PO DAILY [facility] Montelukast Sodium (Singulair -) 10 mg PO [facility] Last Admin: 07/10/17 22:20 Dose: 10 mg Morphine Sulfate (Morphine Sulfate) 2 mg IVPUSH Q4H PRN PRN Reason: PAIN LEVEL 7 - 10 Last Admin: 07/10/17 23:42 Dose: 2 mg Mupirocin (Bactroban Ointment (For Decolonization) -) 1 applic NS BID [facility] Stop: 07/12/17 21:59 Last Admin: 07/10/17 21:52 Dose: Not Given Nicotine (Nicoderm Patch -) 21 mg TD DAILY [facility] Ondansetron HCl (Zofran Injection) 4 mg IVPUSH Q6H PRN PRN Reason: NAUSEA AND/OR VOMITING Oxycodone HCl (Roxicodone -) 5 mg PO Q4H PRN PRN Reason: PAIN LEVEL 1-3 Oxycodone HCl (Roxicodone -) 10 mg PO Q6H PRN PRN Reason: PAIN LEVEL 4 - 6 Last Admin: 07/11/17 01:58 Dose: 10 mg Pantoprazole Sodium (Protonix -) 40 mg PO DAILY [facility] Polyethylene Glycol (Miralax (For Daily Use) -) 17 gm PO DAILY [facility] Senna (Senna -) 2 tab PO HS PRN PRN Reason: CONSTIPATION Tiotropium [place] (Spiriva -) 1 puff IH DAILY [facility] Verapamil HCl (Calan Sr -) 180 mg PO DAILY [facility] Warfarin Sodium (Coumadin -) 2 mg PO DAILY@1800 [facility]ULIET - Objective Vital Signs: Vital Signs Temperature 98.2 F 07/11/17 01:00 Pulse Rate 85 07/11/17 01:00 Respiratory Rate 20 07/11/17 01:00 Blood Pressure 119/72 07/11/17 01:00 O2 Sat by Pulse Oximetry (%) 99 07/10/17 22:00 Eyes: Yes: PERRL HENT: Yes: Atraumatic Neck: Yes: Supple Cardiovascular: Yes: Regular Rate and Rhythm, S1, S2 Respiratory: Yes: CTA Bilaterally Gastrointestinal: Yes: Normal Bowel Sounds, Soft Edema: No Additional Findings/Remarks: - Review of Systems Constitutional: denies: Chills, Fever Cardiovascular: denies: Chest Pain, Palpitations, Shortness of Breath Respiratory: denies: Cough, Hemoptysis, Orthopnea, PND, SOB, SOB on Exertion, Wheezing Gastrointestinal: denies: Abdominal Pain, Constipation, Diarrhea, Melena, Nausea , Rectal Bleeding, Vomiting Neurological: denies: Dizziness, Headache, Seizure, Syncope, Weakness Labs: CBC, BMP 07/10/17 06:30 07/10/17 06:30 INR, PTT INR 1.67 (0.82-1.09) H 07/10/17 06:30 Problem List - Problems (1) Arterial occlusion, lower extremity Code(s): I70.209 - UNSP ATHSCL [place] ARTERIES OF EXTREMITIES, UNSP EXTREMITY (2) CAD (coronary artery disease) Code(s): I25.10 - ATHSCL HEART DISEASE OF [place] CORONARY ARTERY W/O ANG PCTRS Qualifiers: Coronary Disease-Associated Artery/Lesion type: [place] artery [place] vs. transplanted heart: [place] heart Associated angina: without angina Qualified Code(s): I25.10 - Atherosclerotic heart disease of [place] coronary artery without angina pectoris (3) COPD exacerbation Code(s): J44.1 - CHRONIC OBSTRUCTIVE PULMONARY DISEASE W (ACUTE) EXACERBATION (4) PAD (peripheral artery disease) Code(s): I73.9 - PERIPHERAL VASCULAR DISEASE, UNSPECIFIED (5) Paresthesia and pain of left extremity Code(s): M79.609 - PAIN IN UNSPECIFIED LIMB; R20.2 - PARESTHESIA OF SKIN (6) S/P coronary artery stent placement Code(s): Z95.5 - PRESENCE OF CORONARY ANGIOPLASTY IMPLANT AND GRAFT (7) Status post peripheral artery angioplasty with insertion of stent Code(s): Z95.820 - PERIPHERAL VASCULAR ANGIOPLASTY STATUS W IMPLANTS AND GRAFTS (8) HTN (hypertension) Code(s): I10 - ESSENTIAL (PRIMARY) HYPERTENSION Qualifiers: Hypertension type: essential hypertension Qualified Code(s): I10 - Essential (primary) hypertension (9) Hyperlipemia, mixed Code(s): E78.2 - MIXED HYPERLIPIDEMIA Assessment/Plan 1. Peripheral artery disease POD#4 h/o fem-pop bypass with thrombosed left leg bypass s/p left femoral popliteal bypass with PTFE, angioplasty distal anterior tibial artery 2. CAD s/p PCI/stent, angina 3. Hypertension 4. Hypercholesterolemia 5. COPD with long standing history of cigarette smoking 6. Anemia PLAN: 1. Continue Lipitor 20 qhs, Lisinopril 20 qd and Verapamil SR 180 qd as tolerated 2. Continue Coumadin per INR and Plavix. Patient is also receiving Lovenox 3. Vascular surgical follow up 4. PT/rehab Further plan are to follow Artie Alvarado MD
[2017-07-11] MEDS ORDERED: PT OWN MED DRAWER 7, Y5N ONE (09:44)
[2017-07-11] MEDS: VERAPAMIL HCL 180 MG E.R. TABLET (FP) PO SCH (09:50)
[2017-07-11] MEDS: MUPIROCIN 2% TOPICAL OINTMENT FOR DECOLONIZATION NS SCH ×2 (09:50→21:34)
[2017-07-11] MEDS: FLUTICASONE PROP 0.05% 16 GM NASAL SPRAY NS SCH (09:51)
[2017-07-11] MEDS: POLYETHYLENE GLYCOL 3350 119 GM BTL PO SCH (09:53)
[2017-07-11] MEDS: NICOTINE 21 MG/24 HOURS TOPICAL PATCH TD SCH (09:54)
[2017-07-11] MEDS: GABAPENTIN 300 MG CAPSULE (FP) PO SCH ×4 (09:54→21:36)
[2017-07-11] MEDS: CLOPIDOGREL BISULFATE 75 MG TABLET (FP) PO SCH (09:55)
[2017-07-11] MEDS: LISINOPRIL 20 MG TABLET (FP) PO SCH (09:55)
[2017-07-11] MEDS: PANTOPRAZOLE 40 MG TABLET (FP) PO SCH (09:55)
[2017-07-11] MEDS: TIOTROPIUM BROMIDE 18 MCG CAPSULES IH SCH (09:56)
[2017-07-11] MEDS: ENOXAPARIN NA (PORCINE) 80 MG/0.8 ML DISP.SYRIN SQ SCH ×2 (10:22→21:36)
[2017-07-11] MEDS: ENOXAPARIN NA (PORCINE) 40 MG/0.4 ML DISP.SYRIN SQ SCH (10:22)
--- NOTE | 2017-07-11 10:46 | PN ---
Progress Note, Physician History of Present Illness: PULMONARY POD #3 ,ALERT,OOB-CHAIR C/O INTERMITTENT EPISODES OF SOB,-CP,-COUGH - Current Medication List Current Medications: Active Medications Acetaminophen (Tylenol -) 650 mg PO Q6H PRN PRN Reason: FEVER Last Admin: 07/11/17 10:24 Dose: 650 mg Albuterol Sulfate (Ventolin 0.083% Nebulizer Soln -) 1 amp NEB Q4H PRN PRN Reason: SHORT OF BREATH/WHEEZING Albuterol Sulfate (Ventolin 0.083% Nebulizer Soln -) 1 amp NEB RQID [facility] Last Admin: 07/11/17 07:53 Dose: 1 amp Atorvastatin Calcium (Lipitor -) 20 mg PO HS [facility] Last Admin: 07/10/17 22:20 Dose: 20 mg Chlorhexidine Gluconate (Hibiclens For Decolonization -) 1 applic TP HS [facility] Last Admin: 07/10/17 21:52 Dose: Not Given Clopidogrel Bisulfate (Plavix -) 75 mg PO DAILY [facility] Last Admin: 07/11/17 09:55 Dose: 75 mg Docusate Sodium (Colace -) 100 mg PO Q8H PRN PRN Reason: CONSTIPATION Enoxaparin Sodium (Lovenox -) 70 mg SQ BID [facility] Last Admin: 07/11/17 10:22 Dose: 70 mg Fluticasone Propionate (Flonase -) 1 spray NS DAILY [facility] Last Admin: 07/11/17 09:51 Dose: 1 spray Gabapentin (Neurontin -) 600 mg PO QID [facility] Last Admin: 07/11/17 09:54 Dose: 600 mg Cefazolin Sodium 1 gm/ (Dextrose) 50 mls @ 100 mls/hr IVPB Q8H-IV [facility] Last Admin: 07/11/17 09:48 Dose: 100 mls/hr Lisinopril (Prinivil) 20 mg PO DAILY [facility] Last Admin: 07/11/17 09:55 Dose: 20 mg Montelukast Sodium (Singulair -) 10 mg PO HS [facility] Last Admin: 07/10/17 22:20 Dose: 10 mg Morphine Sulfate (Morphine Sulfate) 2 mg IVPUSH Q4H PRN PRN Reason: PAIN LEVEL 7 - 10 Last Admin: 07/10/17 23:42 Dose: 2 mg Mupirocin (Bactroban Ointment (For Decolonization) -) 1 applic NS BID [facility] Stop: 07/12/17 21:59 Last Admin: 07/11/17 09:50 Dose: Not Given Nicotine (Nicoderm Patch -) 21 mg TD DAILY [facility] Last Admin: 07/11/17 09:54 Dose: 21 mg Ondansetron HCl (Zofran Injection) 4 mg IVPUSH Q6H PRN PRN Reason: NAUSEA AND/OR VOMITING Oxycodone HCl (Roxicodone -) 5 mg PO Q4H PRN PRN Reason: PAIN LEVEL 1-3 Oxycodone HCl (Roxicodone -) 10 mg PO Q6H PRN PRN Reason: PAIN LEVEL 4 - 6 Last Admin: 07/11/17 10:23 Dose: 10 mg Pantoprazole Sodium (Protonix -) 40 mg PO DAILY [facility] Last Admin: 07/11/17 09:55 Dose: 40 mg Polyethylene Glycol (Miralax (For Daily Use) -) 17 gm PO DAILY [facility] Last Admin: 07/11/17 09:53 Dose: Not Given Senna (Senna -) 2 tab PO HS PRN PRN Reason: CONSTIPATION Tiotropium [place] (Spiriva -) 1 puff IH DAILY [facility] Last Admin: 07/11/17 09:56 Dose: 1 puff Verapamil HCl (Calan Sr -) 180 mg PO DAILY [facility] Last Admin: 07/11/17 09:50 Dose: 180 mg Warfarin Sodium (Coumadin -) 2 mg PO DAILY@1800 [facility] - Objective Vital Signs: Vital Signs Temperature 98.2 F 07/11/17 01:00 Pulse Rate 85 07/11/17 01:00 Respiratory Rate 20 07/11/17 01:00 Blood Pressure 119/72 07/11/17 01:00 O2 Sat by Pulse Oximetry (%) 99 07/10/17 22:00 Constitutional: Yes: Well Nourished, Calm Eyes: Yes: WNL HENT: Yes: WNL Neck: Yes: WNL Cardiovascular: Yes: Regular Rate and Rhythm, S1, S2 Respiratory: Yes: Rhonchi (FEW SCATTERED LORRAINE RHONCHI) Gastrointestinal: Yes: Normal Bowel Sounds, Soft Extremities: Yes: Other (LLE DRESSING DRY) Edema: No Labs: CBC, BMP 07/10/17 06:30 07/10/17 06:30 INR, PTT INR 1.67 (0.82-1.09) H 07/10/17 06:30 Assessment/Plan Problem List - Problems (1) Arterial occlusion, lower extremity Code(s): I70.209 - UNSP ATHSCL [place] ARTERIES OF EXTREMITIES, UNSP EXTREMITY (2) CAD (coronary artery disease) Code(s): I25.10 - ATHSCL HEART DISEASE OF [place] CORONARY ARTERY W/O ANG PCTRS Qualifiers: Coronary Disease-Associated Artery/Lesion type: [place] artery [place] vs. transplanted heart: [place] heart Associated angina: without angina Qualified Code(s): I25.10 - Atherosclerotic heart disease of [place] coronary artery without angina pectoris (3) COPD exacerbation Code(s): J44.1 - CHRONIC OBSTRUCTIVE PULMONARY DISEASE W (ACUTE) EXACERBATION (4) Cellulitis Code(s): L03.90 - CELLULITIS, UNSPECIFIED (5) Left leg weakness Code(s): M62.81 - MUSCLE WEAKNESS (GENERALIZED) (6) Leg pain, left Code(s): M79.605 - PAIN IN LEFT LEG (7) PAD (peripheral artery disease) Code(s): I73.9 - PERIPHERAL VASCULAR DISEASE, UNSPECIFIED (8) Pain Code(s): R52 - PAIN, UNSPECIFIED (9) Paresthesia and pain of left extremity Code(s): M79.609 - PAIN IN UNSPECIFIED LIMB; R20.2 - PARESTHESIA OF SKIN (10) Peripheral vascular disease Code(s): I73.9 - PERIPHERAL VASCULAR DISEASE, UNSPECIFIED (11) Status post peripheral artery angioplasty with insertion of stent Code(s): Z95.820 - PERIPHERAL VASCULAR ANGIOPLASTY STATUS W IMPLANTS AND GRAFTS (12) Hyperlipemia, mixed Code(s): E78.2 - MIXED HYPERLIPIDEMIA Assessment/Plan s/p Left femoral popliteal bypass with PTFE. Angioplasty distal anterior tibial artery. Thrombectomy tibial bypass graft. COPD, active smoker CAD S/P PCI/stent HPL PAD S/P bilateral SFA stent Plan: -Follow dopplers -Monitor surgical site for bleeding -Pain management with prn morphine -BP monitoring -Monitor coags and CBC -AC with Coumadin -Supplemental O2 to maintain saturation - Inhaled bronchodilators -statins DR DELONG
[2017-07-11 14:12] LABS: INR 1.41 (0.82-1.09); PROTHROMBIN TIME (PATIENT) 15.9 SEC (9.7-13.0)
--- NOTE | 2017-07-11 16:20 | PN ---
Progress Note (short form) - Note Progress Note: Patient is comfortable with no acute distress. no shortness of breath. Vital Signs Temperature 98.8 F 07/11/17 14:00 Pulse Rate 81 07/11/17 14:00 Respiratory Rate 20 07/11/17 14:00 Blood Pressure 133/58 07/11/17 14:00 O2 Sat by Pulse Oximetry (%) 96 07/11/17 09:00 GENERAL: The patient is awake, alert, and fully oriented, in no acute distress. HEAD: Normal with no signs of trauma. EYES: PERRL, extraocular movements intact, sclera anicteric, conjunctiva clear. ENT: Ears normal, oropharynx clear without exudates, moist mucous membranes. NECK: Trachea midline, full range of motion, supple. LUNGS: Breath sounds equal, clear to auscultation bilaterally, no wheezes, no crackles, no accessory muscle use. HEART: Regular rate and rhythm, S1, S2 without murmur, rub or gallop. ABDOMEN: Soft, nontender, nondistended, normoactive bowel sounds, no guarding, no rebound, no hepatosplenomegaly, no masses. EXTREMITIES: 2+ pulses, warm, well-perfused, no edema. NEUROLOGICAL: Cranial nerves II through XII grossly intact. Normal speech, gait not observed. PSYCH: Normal mood, normal affect. SKIN: Warm, dry, normal turgor, no rashes or lesions noted CBCD WBC 8.3 K/mm3 (4.0-10.0) D 07/10/17 06:30 RBC 2.83 M/mm3 (3.60-5.2) L 07/10/17 06:30 Hgb 8.4 GM/dL (10.7-15.3) L 07/10/17 06:30 Hct 25.7 % (32.4-45.2) L 07/10/17 06:30 MCV 90.9 fl (80-96) 07/10/17 06:30 MCHC 32.6 g/dl (32.0-36.0) 07/10/17 06:30 RDW 19.0 % (11.6-15.6) H 07/10/17 06:30 Plt Count 228 K/MM3 (134-434) D 07/10/17 06:30 MPV 10.1 fl (7.5-11.1) 07/10/17 06:30 CMP Sodium 141 mmol/L (136-145) 07/10/17 06:30 Potassium 5.3 mmol/L (3.5-5.1) H 07/10/17 06:30 Chloride 106 mmol/L (98-107) 07/10/17 06:30 Carbon Dioxide 33 mmol/L (21-32) H 07/10/17 06:30 Anion Gap 2 (8-16) L 07/10/17 06:30 BUN 17 mg/dL (7-18) 07/10/17 06:30 Creatinine 0.7 mg/dL (0.55-1.02) 07/10/17 06:30 Creat Clearance w eGFR > 60 (>60) 07/10/17 06:30 Random Glucose 85 mg/dL (74-106) 07/10/17 06:30 Calcium 8.0 mg/dL (8.5-10.1) L 07/10/17 06:30 Total Bilirubin 0.3 mg/dL (0.2-1.0) D 07/10/17 06:30 AST 16 U/L (15-37) 07/10/17 06:30 ALT 12 U/L (12-78) 07/10/17 06:30 Alkaline Phosphatase 58 U/L (45-117) 07/10/17 06:30 Total Protein 5.3 g/dl (6.4-8.2) L 07/10/17 06:30 Albumin 2.5 g/dl (3.4-5.0) L 07/10/17 06:30 CARDIAC ENZYMES Creatine Kinase 77 IU/L (26-192) 07/06/17 01:35 Troponin I 0.04 ng/ml (0.00-0.05) 07/06/17 01:35 Current Medications Generic Name Dose Route Start Last Admin Trade Name Freq PRN Reason Stop Dose Admin Acetaminophen 650 mg 07/10/17 20:25 07/11/17 10:24 Tylenol - PO 650 mg Q6H PRN Administration FEVER Albuterol Sulfate 1 amp 07/10/17 20:25 Ventolin 0.083% Nebulizer Soln - NEB Q4H PRN SHORT OF BREATH/WHEEZING Albuterol Sulfate 1 amp 07/11/17 08:00 07/11/17 11:41 Ventolin 0.083% Nebulizer Soln - NEB 1 amp RQID [facility] Administration Atorvastatin Calcium 20 mg 07/10/17 22:00 07/10/17 22:20 Lipitor - PO 20 mg HS [facility] Administration Chlorhexidine Gluconate 1 applic 07/10/17 22:00 07/10/17 21:52 Hibiclens For Decolonization - TP Not Given [facility] Clopidogrel Bisulfate 75 mg 07/11/17 10:00 07/11/17 09:55 Plavix - PO 75 mg DAILY [facility] Administration Docusate Sodium 100 mg 07/10/17 20:25 Colace - PO Q8H PRN CONSTIPATION Enoxaparin Sodium 70 mg 07/11/17 10:15 07/11/17 10:22 Lovenox - SQ 70 mg BID [facility] Administration Fluticasone Propionate 1 spray 07/11/17 10:00 07/11/17 09:51 Flonase - NS 1 spray DAILY [facility] Administration Gabapentin 600 mg 07/10/17 22:00 07/11/17 13:15 Neurontin - PO 600 mg QID [facility] Administration Cefazolin Sodium 1 gm/ 50 mls @ 100 mls/hr 07/11/17 02:00 07/11/17 09:48 Dextrose IVPB 100 mls/hr Q8H-IV [facility] Administration Lisinopril 20 mg 07/11/17 10:00 07/11/17 09:55 Prinivil PO 20 mg DAILY [facility] Administration Montelukast Sodium 10 mg 07/10/17 22:00 07/10/17 22:20 Singulair - PO 10 mg HS [facility] Administration Morphine Sulfate 2 mg 07/10/17 20:25 07/10/17 23:42 Morphine Sulfate IVPUSH 2 mg Q4H PRN Administration PAIN LEVEL 7 - 10 Mupirocin 1 applic 07/10/17 22:00 07/11/17 09:50 Bactroban Ointment (For Decolonization) - NS 07/12/17 21:59 Not Given BID [facility] Nicotine 21 mg 07/11/17 10:00 07/11/17 09:54 Nicoderm Patch - TD 21 mg DAILY [facility] Administration Ondansetron HCl 4 mg 07/10/17 20:25 Zofran Injection IVPUSH Q6H PRN NAUSEA AND/OR VOMITING Oxycodone HCl 5 mg 07/10/17 20:25 Roxicodone - PO Q4H PRN PAIN LEVEL 1-3 Oxycodone HCl 10 mg 07/10/17 20:25 07/11/17 10:23 Roxicodone - PO 10 mg Q6H PRN Administration PAIN LEVEL 4 - 6 Pantoprazole Sodium 40 mg 07/11/17 10:00 07/11/17 09:55 Protonix - PO 40 mg DAILY [facility] Administration Polyethylene Glycol 17 gm 07/11/17 10:00 07/11/17 09:53 Miralax (For Daily Use) - PO Not Given DAILY [facility] Senna 2 tab 07/10/17 20:25 Senna - PO HS PRN CONSTIPATION Tiotropium [place] 1 puff 07/11/17 10:00 07/11/17 09:56 Spiriva - IH 1 puff DAILY [facility] Administration Verapamil HCl 180 mg 07/11/17 10:00 07/11/17 09:50 Calan Sr - PO 180 mg DAILY [facility] Administration Warfarin Sodium 4 mg 07/11/17 18:00 Coumadin - PO DAILY@1800 [facility] Home Medications Medication Instructions Recorded Gabapentin 600 mg PO QID 02/19/17 Montelukast Na [Singulair -] 10 mg PO HS 02/19/17 Verapamil HCl ER [Calan Sr -] 180 mg PO DAILY 02/19/17 Lisinopril [Prinivil] 20 mg PO DAILY #30 tablet 02/28/17 Pantoprazole Sodium [Protonix -] 40 mg PO DAILY #30 tablet.ec 02/28/17 Tiotropium [place] [Spiriva] 1 puff IH DAILY #1 inh 02/28/17 Atorvastatin Ca [Lipitor] 20 mg PO HS tablet 06/05/17 Cefuroxime Axetil [Ceftin -] 500 mg PO Q12H #14 tablet 06/05/17 Clopidogrel Bisulfate [Plavix -] 75 mg PO DAILY tablet 06/05/17 Docusate Sodium [Colace -] 100 mg PO Q8H PRN capsule 06/05/17 Fluconazole [Diflucan -] 200 mg PO DAILY #10 tablet 06/05/17 Nicotine Patch [Nicoderm Patch -] 21 mg TD DAILY patch 06/05/17 Polyethylene Glycol 3350 [Miralax 17 gm PO DAILY bottle 06/05/17 119 gm Btl -] Sennosides [Senna -] 2 tab PO HS PRN tablet 06/05/17 Warfarin Sodium [Coumadin] 3 mg PO 07/05/17 Warfarin Sodium [Coumadin] 3.5 mg PO 07/05/17 INR, PTT INR 1.41 (0.82-1.09) H 07/11/17 13:51 ASSESSMENT AND PLAN: This is a 66 year old woman with a history of PAD, LLE bypass, CAD, stent, HTN, hyperlipidemia, COPD who presented to the ED with left leg pain. # PAD with left foot Ischemia s/p left femoral and popliteal thrombectomy, popliteal anterior tibial bypass 03/20/17. s/p left femoral popliteal bypass, angioplasty of distal anterior tibial artery, thrombectomy of tibial bypass graft 07/07, On Plavix, Lipitor, continue coumadin with Lovenox since patient has subtherapeutic INR of 1.65--> 1.67 -->1.41 today. vascular surgeon on the case. repeat daily INR. will increase coumadin to 4mg from 2mg # CAD, history of stents: Continue Plavix, Lipitor # COPD Stable, Continue Singulair, Spiriva, albuterol nebs, SoluMedrol given perioperatively # HTN Continue Lisinopril, Calan SR # Hyperlipidemia Continue Lipitor # Prolonged QTc # Nicotine dependence Continue nicotine patch DVT PX: Lovenox,coumadin follow INR Visit type - Emergency Visit Emergency Visit: Yes ED Registration Date: 07/06/17 Care time: The patient presented to the Emergency Department on the above date and was hospitalized for further evaluation of their emergent condition. - New Patient This patient is new to me today: No - Critical Care Critical Care patient: No - Discharge Referral Referred to [facility] Med P.C.: No
[2017-07-11] MEDS ORDERED: WARFARIN NA 2 MG TABLET (UD) PO SCH ×2 (18:00)
[2017-07-11] MEDS: CHLORHEXIDINE GLUCONATE 4% CLEANSER FOR DECOLONIZATION TP SCH (21:35)
[2017-07-11] MEDS: MONTELUKAST NA 10 MG TABLET PO SCH (21:36)
[2017-07-11] MEDS: ATORVASTATIN CA 20 MG TABLET (FP) PO SCH (21:36)
[2017-07-12] MEDS ORDERED: ceFAZolin SODIUM 1 GM VIAL ONE ×3 (00:49→18:12)
[2017-07-12] MEDS ORDERED: DEXTROSE 5%-WATER - 50 ML IVPB ONE ×3 (00:50→18:13)
[2017-07-12] MEDS: oxyCODONE HCL 5 MG TABLET PO PRN ×2 (00:57→10:14)
[2017-07-12] MEDS: ACETAMINOPHEN 325 MG TABLET (FP) PO PRN (00:58)
[2017-07-12] MEDS: CEFAZOLIN 1 GM in DEXTROSE 5%-WATER - 50 ML IVPB SCH ×3 (01:00→18:25)
[2017-07-12] MEDS: morphine SULFATE 4 MG/ML VIAL IVPUSH PRN ×2 (04:37→19:46)
[2017-07-12 07:10] LABS: BASO % 0.7 % (0-2.0); EOS % 5.8 % (0-4.5); HEMATOCRIT 27.6 % (32.4-45.2); LYMPH % 25.3 % (8-40); MCH 29.8 pg (25.7-33.7); MCHC 32.7 g/dl (32.0-36.0); MEAN CELL VOLUME 91.1 fl (80-96); MEAN PLT VOLUME 9.6 fl (7.5-11.1); MONO % 9.6 % (3.8-10.2); NEUT % 58.6 % (42.8-82.8); PLATELET COUNT 275 K/MM3 (134-434); RBC 3.03 M/mm3 (3.60-5.2); RDW 18.5 % (11.6-15.6)
[2017-07-12 07:14] LABS: INR 1.27 (0.82-1.09); PROTHROMBIN TIME (PATIENT) 14.4 SEC (9.7-13.0)
[2017-07-12 07:18] LABS: ALBUMIN 2.9 g/dl (3.4-5.0); ALK PHOS 95 U/L (45-117); ANION GAP 9 (8-16); BILIRUBIN,TOTAL 0.4 mg/dL (0.2-1.0); BLOOD UREA NITROGEN 20 mg/dL (7-18); CALCIUM 8.9 mg/dL (8.5-10.1); CHLORIDE 101 mmol/L (98-107); CO2 31 mmol/L (21-32); GLUCOSE,RANDOM 94 mg/dL (74-106); SGOT/AST 29 U/L (15-37); SGPT/ALT 36 U/L (12-78); SODIUM 141 mmol/L (136-145)
[2017-07-12] MEDS: ALBUTEROL SO4 0.083% IH SOL 2.5 MG/3 ML VIAL.NEB. NEB SCH ×4 (08:00→20:34)
[2017-07-12] MEDS: PANTOPRAZOLE 40 MG TABLET (FP) PO SCH (10:09)
[2017-07-12] MEDS: CLOPIDOGREL BISULFATE 75 MG TABLET (FP) PO SCH (10:09)
[2017-07-12] MEDS: LISINOPRIL 20 MG TABLET (FP) PO SCH (10:09)
[2017-07-12] MEDS: MUPIROCIN 2% TOPICAL OINTMENT FOR DECOLONIZATION NS SCH (10:09)
[2017-07-12] MEDS: NICOTINE 21 MG/24 HOURS TOPICAL PATCH TD SCH (10:10)
[2017-07-12] MEDS: TIOTROPIUM BROMIDE 18 MCG CAPSULES IH SCH (10:10)
[2017-07-12] MEDS: GABAPENTIN 300 MG CAPSULE (FP) PO SCH ×4 (10:10→22:09)
[2017-07-12] MEDS: VERAPAMIL HCL 180 MG E.R. TABLET (FP) PO SCH (10:11)
[2017-07-12] MEDS: ENOXAPARIN NA (PORCINE) 80 MG/0.8 ML DISP.SYRIN SQ SCH ×2 (10:11→22:10)
[2017-07-12] MEDS: POLYETHYLENE GLYCOL 3350 119 GM BTL PO SCH (10:13)
[2017-07-12] MEDS: FLUTICASONE PROP 0.05% 16 GM NASAL SPRAY NS SCH (10:13)
--- NOTE | 2017-07-12 10:49 | PN ---
Progress Note, Physician Chief Complaint: Feeling better. Events noted Not in distress Hemodynamically stable History of Present Illness: Patient was seen and examined. Awake and alert. Chart was reviewed Denies chest pain, SOB or palpitations - Current Medication List Current Medications: Active Medications Acetaminophen (Tylenol -) 650 mg PO Q6H PRN PRN Reason: FEVER Last Admin: 07/12/17 00:58 Dose: 650 mg Albuterol Sulfate (Ventolin 0.083% Nebulizer Soln -) 1 amp NEB Q4H PRN PRN Reason: SHORT OF BREATH/WHEEZING Albuterol Sulfate (Ventolin 0.083% Nebulizer Soln -) 1 amp NEB RQID [facility] Last Admin: 07/12/17 08:00 Dose: 1 amp Atorvastatin Calcium (Lipitor -) 20 mg PO [facility] Last Admin: 07/11/17 21:36 Dose: 20 mg Chlorhexidine Gluconate (Hibiclens For Decolonization -) 1 applic TP [facility] Last Admin: 07/11/17 21:35 Dose: Not Given Clopidogrel Bisulfate (Plavix -) 75 mg PO DAILY [facility] Last Admin: 07/12/17 10:09 Dose: 75 mg Docusate Sodium (Colace -) 100 mg PO Q8H PRN PRN Reason: CONSTIPATION Enoxaparin Sodium (Lovenox -) 70 mg SQ BID [facility] Last Admin: 07/12/17 10:11 Dose: 70 mg Fluticasone Propionate (Flonase -) 1 spray NS DAILY [facility] Last Admin: 07/12/17 10:13 Dose: 1 spray Gabapentin (Neurontin -) 600 mg PO QID [facility] Last Admin: 07/12/17 10:10 Dose: 600 mg Cefazolin Sodium 1 gm/ (Dextrose) 50 mls @ 100 mls/hr IVPB Q8H-IV [facility] Last Admin: 07/12/17 10:08 Dose: 100 mls/hr Lisinopril (Prinivil) 20 mg PO DAILY [facility] Last Admin: 07/12/17 10:09 Dose: 20 mg Montelukast Sodium (Singulair -) 10 mg PO HS [facility] Last Admin: 07/11/17 21:36 Dose: 10 mg Morphine Sulfate (Morphine Sulfate) 2 mg IVPUSH Q4H PRN PRN Reason: PAIN LEVEL 7 - 10 Last Admin: 07/12/17 04:37 Dose: 2 mg Mupirocin (Bactroban Ointment (For Decolonization) -) 1 applic NS BID [facility] Stop: 07/12/17 21:59 Last Admin: 07/12/17 10:09 Dose: Not Given Nicotine (Nicoderm Patch -) 21 mg TD DAILY [facility] Last Admin: 07/12/17 10:10 Dose: 21 mg Ondansetron HCl (Zofran Injection) 4 mg IVPUSH Q6H PRN PRN Reason: NAUSEA AND/OR VOMITING Oxycodone HCl (Roxicodone -) 5 mg PO Q4H PRN PRN Reason: PAIN LEVEL 1-3 Oxycodone HCl (Roxicodone -) 10 mg PO Q6H PRN PRN Reason: PAIN LEVEL 4 - 6 Last Admin: 07/12/17 10:14 Dose: 10 mg Pantoprazole Sodium (Protonix -) 40 mg PO DAILY [facility] Last Admin: 07/12/17 10:09 Dose: 40 mg Polyethylene Glycol (Miralax (For Daily Use) -) 17 gm PO DAILY [facility] Last Admin: 07/12/17 10:13 Dose: Not Given Senna (Senna -) 2 tab PO HS PRN PRN Reason: CONSTIPATION Tiotropium [place] (Spiriva -) 1 puff IH DAILY [facility] Last Admin: 07/12/17 10:10 Dose: 1 puff Verapamil HCl (Calan Sr -) 180 mg PO DAILY [facility] Last Admin: 07/12/17 10:11 Dose: 180 mg Warfarin Sodium (Coumadin -) 4 mg PO DAILY@1800 [facility] Last Admin: 07/11/17 17:25 Dose: 4 mg - Objective Vital Signs: Vital Signs Temperature 97.7 F 07/12/17 06:00 Pulse Rate 82 07/12/17 06:00 Respiratory Rate 20 07/12/17 06:00 Blood Pressure 111/56 07/12/17 06:00 O2 Sat by Pulse Oximetry (%) 97 07/11/17 21:00 HENT: Yes: Atraumatic Cardiovascular: Yes: Regular Rate and Rhythm, S1, S2 Respiratory: Yes: CTA Bilaterally Gastrointestinal: Yes: Normal Bowel Sounds, Soft. No: Tenderness Edema: No Additional Findings/Remarks: - Review of Systems Constitutional: denies: Chills, Fever Cardiovascular: denies: Chest Pain, Palpitations, Shortness of Breath Respiratory: denies: Cough, Hemoptysis, Orthopnea, PND, SOB, SOB on Exertion, Wheezing Gastrointestinal: denies: Abdominal Pain, Constipation, Diarrhea, Melena, Nausea , Rectal Bleeding, Vomiting Neurological: denies: Dizziness, Headache, Seizure, Syncope, Weakness Labs: CBC, BMP 07/12/17 06:30 07/12/17 06:30 INR, PTT INR 1.27 (0.82-1.09) H 07/12/17 06:30 Problem List - Problems (1) Arterial occlusion, lower extremity Code(s): I70.209 - UNSP ATHSCL [place] ARTERIES OF EXTREMITIES, UNSP EXTREMITY (2) CAD (coronary artery disease) Code(s): I25.10 - ATHSCL HEART DISEASE OF [place] CORONARY ARTERY W/O ANG PCTRS Qualifiers: Coronary Disease-Associated Artery/Lesion type: [place] artery [place] vs. transplanted heart: [place] heart Associated angina: without angina Qualified Code(s): I25.10 - Atherosclerotic heart disease of [place] coronary artery without angina pectoris (3) COPD exacerbation Code(s): J44.1 - CHRONIC OBSTRUCTIVE PULMONARY DISEASE W (ACUTE) EXACERBATION (4) PAD (peripheral artery disease) Code(s): I73.9 - PERIPHERAL VASCULAR DISEASE, UNSPECIFIED (5) Paresthesia and pain of left extremity Code(s): M79.609 - PAIN IN UNSPECIFIED LIMB; R20.2 - PARESTHESIA OF SKIN (6) S/P coronary artery stent placement Code(s): Z95.5 - PRESENCE OF CORONARY ANGIOPLASTY IMPLANT AND GRAFT (7) Status post peripheral artery angioplasty with insertion of stent Code(s): Z95.820 - PERIPHERAL VASCULAR ANGIOPLASTY STATUS W IMPLANTS AND GRAFTS (8) HTN (hypertension) Code(s): I10 - ESSENTIAL (PRIMARY) HYPERTENSION Qualifiers: Hypertension type: essential hypertension Qualified Code(s): I10 - Essential (primary) hypertension (9) Hyperlipemia, mixed Code(s): E78.2 - MIXED HYPERLIPIDEMIA Assessment/Plan 1. Peripheral artery disease POD#5 h/o fem-pop bypass with thrombosed left leg bypass s/p left femoral popliteal bypass with PTFE, angioplasty distal anterior tibial artery 2. CAD s/p PCI/stent, angina 3. Hypertension 4. Hypercholesterolemia 5. COPD with long standing history of cigarette smoking 6. Anemia PLAN: 1. Continue Lipitor 20 qhs, Lisinopril 20 qd and Verapamil SR 180 qd as tolerated 2. Continue Coumadin per INR and Plavix. Patient is also receiving Lovenox. INR still subtherapeutic 3. Vascular surgical follow up 4. PT/rehab Further plan are to follow Artie Alvarado MD
--- NOTE | 2017-07-12 10:52 | PN ---
Progress Note, Physician History of Present Illness: PULMONARY ALERT,FEELING BETTER,-RESP DISTRESS,LESS LOWER EXT PAIN - Current Medication List Current Medications: Active Medications Acetaminophen (Tylenol -) 650 mg PO Q6H PRN PRN Reason: FEVER Last Admin: 07/12/17 00:58 Dose: 650 mg Albuterol Sulfate (Ventolin 0.083% Nebulizer Soln -) 1 amp NEB Q4H PRN PRN Reason: SHORT OF BREATH/WHEEZING Albuterol Sulfate (Ventolin 0.083% Nebulizer Soln -) 1 amp NEB RQID [facility] Last Admin: 07/12/17 08:00 Dose: 1 amp Atorvastatin Calcium (Lipitor -) 20 mg PO [facility] Last Admin: 07/11/17 21:36 Dose: 20 mg Chlorhexidine Gluconate (Hibiclens For Decolonization -) 1 applic TP [facility] Last Admin: 07/11/17 21:35 Dose: Not Given Clopidogrel Bisulfate (Plavix -) 75 mg PO DAILY [facility] Last Admin: 07/12/17 10:09 Dose: 75 mg Docusate Sodium (Colace -) 100 mg PO Q8H PRN PRN Reason: CONSTIPATION Enoxaparin Sodium (Lovenox -) 70 mg SQ BID [facility] Last Admin: 07/12/17 10:11 Dose: 70 mg Fluticasone Propionate (Flonase -) 1 spray NS DAILY [facility] Last Admin: 07/12/17 10:13 Dose: 1 spray Gabapentin (Neurontin -) 600 mg PO QID [facility] Last Admin: 07/12/17 10:10 Dose: 600 mg Cefazolin Sodium 1 gm/ (Dextrose) 50 mls @ 100 mls/hr IVPB Q8H-IV [facility] Last Admin: 07/12/17 10:08 Dose: 100 mls/hr Lisinopril (Prinivil) 20 mg PO DAILY [facility] Last Admin: 07/12/17 10:09 Dose: 20 mg Montelukast Sodium (Singulair -) 10 mg PO [facility] Last Admin: 07/11/17 21:36 Dose: 10 mg Morphine Sulfate (Morphine Sulfate) 2 mg IVPUSH Q4H PRN PRN Reason: PAIN LEVEL 7 - 10 Last Admin: 07/12/17 04:37 Dose: 2 mg Mupirocin (Bactroban Ointment (For Decolonization) -) 1 applic NS BID [facility] Stop: 07/12/17 21:59 Last Admin: 07/12/17 10:09 Dose: Not Given Nicotine (Nicoderm Patch -) 21 mg TD DAILY [facility] Last Admin: 07/12/17 10:10 Dose: 21 mg Ondansetron HCl (Zofran Injection) 4 mg IVPUSH Q6H PRN PRN Reason: NAUSEA AND/OR VOMITING Oxycodone HCl (Roxicodone -) 5 mg PO Q4H PRN PRN Reason: PAIN LEVEL 1-3 Oxycodone HCl (Roxicodone -) 10 mg PO Q6H PRN PRN Reason: PAIN LEVEL 4 - 6 Last Admin: 07/12/17 10:14 Dose: 10 mg Pantoprazole Sodium (Protonix -) 40 mg PO DAILY [facility] Last Admin: 07/12/17 10:09 Dose: 40 mg Polyethylene Glycol (Miralax (For Daily Use) -) 17 gm PO DAILY [facility] Last Admin: 07/12/17 10:13 Dose: Not Given Senna (Senna -) 2 tab PO HS PRN PRN Reason: CONSTIPATION Tiotropium [place] (Spiriva -) 1 puff IH DAILY [facility] Last Admin: 07/12/17 10:10 Dose: 1 puff Verapamil HCl (Calan Sr -) 180 mg PO DAILY [facility] Last Admin: 07/12/17 10:11 Dose: 180 mg Warfarin Sodium (Coumadin -) 4 mg PO DAILY@1800 [facility] Last Admin: 07/11/17 17:25 Dose: 4 mg - Objective Vital Signs: Vital Signs Temperature 97.7 F 07/12/17 06:00 Pulse Rate 82 07/12/17 06:00 Respiratory Rate 20 07/12/17 06:00 Blood Pressure 111/56 07/12/17 06:00 O2 Sat by Pulse Oximetry (%) 97 07/11/17 21:00 Constitutional: Yes: Well Nourished, Calm Eyes: Yes: WNL HENT: Yes: WNL Neck: Yes: WNL Cardiovascular: Yes: Regular Rate and Rhythm, S1, S2 Respiratory: Yes: Diminished, Rhonchi (FEW RHONCHI) Gastrointestinal: Yes: Normal Bowel Sounds, Soft Extremities: Yes: WNL, Other (LLE EXT DREESING DRY) Edema: No Labs: CBC, BMP 07/12/17 06:30 07/12/17 06:30 INR, PTT INR 1.27 (0.82-1.09) H 07/12/17 06:30 Assessment/Plan Problem List - Problems (1) Arterial occlusion, lower extremity Code(s): I70.209 - UNSP ATHSCL [place] ARTERIES OF EXTREMITIES, UNSP EXTREMITY (2) CAD (coronary artery disease) Code(s): I25.10 - ATHSCL HEART DISEASE OF [place] CORONARY ARTERY W/O ANG PCTRS Qualifiers: Coronary Disease-Associated Artery/Lesion type: [place] artery [place] vs. transplanted heart: [place] heart Associated angina: without angina Qualified Code(s): I25.10 - Atherosclerotic heart disease of [place] coronary artery without angina pectoris (3) COPD exacerbation Code(s): J44.1 - CHRONIC OBSTRUCTIVE PULMONARY DISEASE W (ACUTE) EXACERBATION (4) Cellulitis Code(s): L03.90 - CELLULITIS, UNSPECIFIED (5) Left leg weakness Code(s): M62.81 - MUSCLE WEAKNESS (GENERALIZED) (6) Leg pain, left Code(s): M79.605 - PAIN IN LEFT LEG (7) PAD (peripheral artery disease) Code(s): I73.9 - PERIPHERAL VASCULAR DISEASE, UNSPECIFIED (8) Pain Code(s): R52 - PAIN, UNSPECIFIED (9) Paresthesia and pain of left extremity Code(s): M79.609 - PAIN IN UNSPECIFIED LIMB; R20.2 - PARESTHESIA OF SKIN (10) Peripheral vascular disease Code(s): I73.9 - PERIPHERAL VASCULAR DISEASE, UNSPECIFIED (11) Status post peripheral artery angioplasty with insertion of stent Code(s): Z95.820 - PERIPHERAL VASCULAR ANGIOPLASTY STATUS W IMPLANTS AND GRAFTS (12) Hyperlipemia, mixed Code(s): E78.2 - MIXED HYPERLIPIDEMIA Assessment/Plan s/p Left femoral popliteal bypass with PTFE. Angioplasty distal anterior tibial artery. Thrombectomy tibial bypass graft. COPD, active smoker CAD S/P PCI/stent HPL PAD S/P bilateral SFA stent Plan: -Monitor surgical site for bleeding -Pain management with prn morphine -BP monitoring -Monitor coags and CBC -AC with Coumadin -Supplemental O2 to maintain saturation - Inhaled bronchodilators DR DELONG
--- NOTE | 2017-07-12 11:23 | PN ---
Progress Note, Physician History of Present Illness: No acute events. No GI related complaints this morning. - Current Medication List Current Medications: Active Medications Acetaminophen (Tylenol -) 650 mg PO Q6H PRN PRN Reason: FEVER Last Admin: 07/12/17 00:58 Dose: 650 mg Albuterol Sulfate (Ventolin 0.083% Nebulizer Soln -) 1 amp NEB Q4H PRN PRN Reason: SHORT OF BREATH/WHEEZING Albuterol Sulfate (Ventolin 0.083% Nebulizer Soln -) 1 amp NEB RQID [facility] Last Admin: 07/12/17 11:06 Dose: 1 amp Atorvastatin Calcium (Lipitor -) 20 mg PO [facility] Last Admin: 07/11/17 21:36 Dose: 20 mg Chlorhexidine Gluconate (Hibiclens For Decolonization -) 1 applic TP [facility] Last Admin: 07/11/17 21:35 Dose: Not Given Clopidogrel Bisulfate (Plavix -) 75 mg PO DAILY [facility] Last Admin: 07/12/17 10:09 Dose: 75 mg Docusate Sodium (Colace -) 100 mg PO Q8H PRN PRN Reason: CONSTIPATION Enoxaparin Sodium (Lovenox -) 70 mg SQ BID [facility] Last Admin: 07/12/17 10:11 Dose: 70 mg Fluticasone Propionate (Flonase -) 1 spray NS DAILY [facility] Last Admin: 07/12/17 10:13 Dose: 1 spray Gabapentin (Neurontin -) 600 mg PO QID [facility] Last Admin: 07/12/17 10:10 Dose: 600 mg Cefazolin Sodium 1 gm/ (Dextrose) 50 mls @ 100 mls/hr IVPB Q8H-IV [facility] Last Admin: 07/12/17 10:08 Dose: 100 mls/hr Lisinopril (Prinivil) 20 mg PO DAILY [facility] Last Admin: 07/12/17 10:09 Dose: 20 mg Montelukast Sodium (Singulair -) 10 mg PO [facility] Last Admin: 07/11/17 21:36 Dose: 10 mg Morphine Sulfate (Morphine Sulfate) 2 mg IVPUSH Q4H PRN PRN Reason: PAIN LEVEL 7 - 10 Last Admin: 07/12/17 04:37 Dose: 2 mg Mupirocin (Bactroban Ointment (For Decolonization) -) 1 applic NS BID [facility] Stop: 07/12/17 21:59 Last Admin: 07/12/17 10:09 Dose: Not Given Nicotine (Nicoderm Patch -) 21 mg TD DAILY [facility] Last Admin: 07/12/17 10:10 Dose: 21 mg Ondansetron HCl (Zofran Injection) 4 mg IVPUSH Q6H PRN PRN Reason: NAUSEA AND/OR VOMITING Oxycodone HCl (Roxicodone -) 5 mg PO Q4H PRN PRN Reason: PAIN LEVEL 1-3 Oxycodone HCl (Roxicodone -) 10 mg PO Q6H PRN PRN Reason: PAIN LEVEL 4 - 6 Last Admin: 07/12/17 10:14 Dose: 10 mg Pantoprazole Sodium (Protonix -) 40 mg PO DAILY [facility] Last Admin: 07/12/17 10:09 Dose: 40 mg Polyethylene Glycol (Miralax (For Daily Use) -) 17 gm PO DAILY [facility] Last Admin: 07/12/17 10:13 Dose: Not Given Senna (Senna -) 2 tab PO HS PRN PRN Reason: CONSTIPATION Tiotropium [place] (Spiriva -) 1 puff IH DAILY [facility] Last Admin: 07/12/17 10:10 Dose: 1 puff Verapamil HCl (Calan Sr -) 180 mg PO DAILY [facility] Last Admin: 07/12/17 10:11 Dose: 180 mg Warfarin Sodium (Coumadin -) 4 mg PO DAILY@1800 [facility] Last Admin: 07/11/17 17:25 Dose: 4 mg - Objective Vital Signs: Vital Signs Temperature 97.7 F 07/12/17 06:00 Pulse Rate 82 07/12/17 06:00 Respiratory Rate 20 07/12/17 06:00 Blood Pressure 111/56 07/12/17 06:00 O2 Sat by Pulse Oximetry (%) 97 07/11/17 21:00 Constitutional: Yes: No Distress, Calm Gastrointestinal: Yes: Normal Bowel Sounds, Soft. No: Melena, Rectal Bleeding, Tenderness, Vomiting Neurological: Yes: Alert, Oriented Labs: CBC, BMP 07/12/17 06:30 07/12/17 06:30 INR, PTT INR 1.27 (0.82-1.09) H 07/12/17 06:30 Laboratory Last Values WBC 8.0 K/mm3 (4.0-10.0) 07/12/17 06:30 RBC 3.03 M/mm3 (3.60-5.2) L 07/12/17 06:30 Hgb 9.0 GM/dL (10.7-15.3) L 07/12/17 06:30 Hct 27.6 % (32.4-45.2) L 07/12/17 06:30 MCV 91.1 fl (80-96) 07/12/17 06:30 MCH 29.8 pg (25.7-33.7) 07/12/17 06:30 MCHC 32.7 g/dl (32.0-36.0) 07/12/17 06:30 RDW 18.5 % (11.6-15.6) H 07/12/17 06:30 Plt Count 275 K/MM3 (134-434) D 07/12/17 06:30 MPV 9.6 fl (7.5-11.1) 07/12/17 06:30 Neutrophils % 58.6 % (42.8-82.8) 07/12/17 06:30 Lymphocytes % 25.3 % (8-40) 07/12/17 06:30 Monocytes % 9.6 % (3.8-10.2) 07/12/17 06:30 Eosinophils % 5.8 % (0-4.5) H 07/12/17 06:30 Basophils % 0.7 % (0-2.0) 07/12/17 06:30 PT with INR 14.40 SEC (9.7-13.0) H 07/12/17 06:30 INR 1.27 (0.82-1.09) H 07/12/17 06:30 PTT (Actin FS) 36.2 SECONDS (26.9-34.4) H 07/10/17 06:30 Sodium 141 mmol/L (136-145) 07/12/17 06:30 Potassium 5.0 mmol/L (3.5-5.1) 07/12/17 06:30 Chloride 101 mmol/L (98-107) 07/12/17 06:30 Carbon Dioxide 31 mmol/L (21-32) 07/12/17 06:30 Anion Gap 9 (8-16) 07/12/17 06:30 BUN 20 mg/dL (7-18) H 07/12/17 06:30 Creatinine 1.0 mg/dL (0.55-1.02) 07/12/17 06:30 Creat Clearance w eGFR 55.14 (>60) 07/12/17 06:30 Random Glucose 94 mg/dL (74-106) 07/12/17 06:30 Calcium 8.9 mg/dL (8.5-10.1) 07/12/17 06:30 Phosphorus 3.1 mg/dL (2.5-4.9) 07/10/17 06:30 Magnesium 1.6 mg/dL (1.8-2.4) L 07/10/17 06:30 Total Bilirubin 0.4 mg/dL (0.2-1.0) D 07/12/17 06:30 AST 29 U/L (15-37) 07/12/17 06:30 ALT 36 U/L (12-78) 07/12/17 06:30 Alkaline Phosphatase 95 U/L (45-117) 07/12/17 06:30 Creatine Kinase 77 IU/L (26-192) 07/06/17 01:35 Troponin I 0.04 ng/ml (0.00-0.05) 07/06/17 01:35 Total Protein 6.0 g/dl (6.4-8.2) L 07/12/17 06:30 Albumin 2.9 g/dl (3.4-5.0) L 07/12/17 06:30 Beta Globulins 0.9 g/dL (0.7-1.3) 07/07/17 06:00 Urine Color Ltyellow 07/08/17 Unknown Urine Appearance Slcloudy 07/08/17 Unknown Urine pH 5.0 (5.0-8.0) 07/08/17 Unknown Ur Specific [place] 1.015 (1.001-1.035) 07/08/17 Unknown Urine Protein Negative (NEGATIVE) 07/08/17 Unknown Urine Glucose (UA) Negative (NEGATIVE) 07/08/17 Unknown Urine Ketones Negative (NEGATIVE) 07/08/17 Unknown Urine Blood Negative (NEGATIVE) 07/08/17 Unknown Urine Nitrite Negative (NEGATIVE) 07/08/17 Unknown Urine Bilirubin Negative (<2.0 mg/dL) 07/08/17 Unknown Urine Urobilinogen Negative mg/dL (0.2-1.0) 07/08/17 Unknown Ur Leukocyte Esterase 2+ (NEGATIVE) H 07/08/17 Unknown Urine WBC (Auto) 21 /hpf (3-5) 07/08/17 Unknown Urine RBC (Auto) 15 /hpf (0-3) 07/08/17 Unknown Urine Yeast Few 07/08/17 Unknown NATALIA & SPEP Interp (.) 07/07/17 06:00 Total Protein (NATALIA) 6.3 g/dL (6.0-8.5) 07/07/17 06:00 Albumin (NATALIA) 3.2 g/dL (2.9-4.4) 07/07/17 06:00 Albumin/Globulin (NATALIA) 1.1 (0.7-1.7) 07/07/17 06:00 [id number] NATALIA 0.3 g/dL (0.0-0.4) 07/07/17 06:00 [id number]-1-[id number] NATALIA 1.1 g/dL (0.4-1.0) H 07/07/17 06:00 Gamma Globulins (NATALIA) 0.9 g/dL (0.4-1.8) 07/07/17 06:00 NATALIA M-Steve Not observed g/dL (Not Observed) 07/07/17 06:00 NATALIA Comments (.) 07/07/17 06:00 IEP IgG 731 mg/dL (700-1600) 07/07/17 06:00 IEP IgA 187 mg/dL (87-352) 07/07/17 06:00 IEP IgM 84 mg/dL (26-217) 07/07/17 06:00 Blood Type A POSITIVE 07/06/17 06:00 Antibody Screen Negative 07/06/17 06:00 Crossmatch IS Only See Detail 07/06/17 06:00 Problem List - Problems (1) Common bile duct dilation Code(s): K83.8 - OTHER SPECIFIED DISEASES OF BILIARY TRACT (2) Dilation of pancreatic duct Code(s): K86.89 - OTHER SPECIFIED DISEASES OF PANCREAS Assessment/Plan Continues to be asymptomatic. Liver chemistry normal. No signs of cholestasis. MRI, EUS as an option were discussed with the patient. Plan upper endoscopy to rule out intraluminal lesions. Patient agrees with the plan.
--- NOTE | 2017-07-12 11:31 | PN ---
Progress Note (short form) - Note Progress Note: surgery POD #5 Left femoral popliteal bypass with PTFE. Angioplasty distal anterior tibial artery. Thrombectomy tibial bypass graft. Patient seen and examined at bedside. States she was able to walk a short distance with some leg/foot pain but overall she feels well. she is tolerating her diet and denies any new symptoms. Vital Signs Temp 97.7 F 07/12/17 06:00 Pulse 82 07/12/17 06:00 Resp 20 07/12/17 06:00 BP 111/56 07/12/17 06:00 Pulse Ox 97 07/11/17 21:00 Intake & Output 07/11/1718 07/12/17 11:59 23:59 11:59 Intake Total 50 70 Balance 50 70 Intake: IV 20 Saline lock 20 IVPB 50 50 Other: Voiding Method Bedpan Bedpan # Unmeasured Voids Void 3 Bowel Movement Yes # Bowel Movements 1 CBC, BMP 07/12/17 06:30 07/12/17 06:30 INR, PTT INR 1.27 (0.82-1.09) H 07/12/17 06:30 PE: A&Ox3, NAD unlabored resp on nebulizer treatment left groin incision,C/D/I with kami instu, no d/c, surrounding tissue with no evidence of tracking erythema, edema or collection. Left leg pink and warm. Left Leg incision,C/D/I with kami instu, no d/c, surrounding tissue with no evidence of tracking erythema, edema or collection. Left foot warm, well perfused with +2 pedal pulse. 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 1) Continue Coumadin, Plavix and Lovenox for INR >2 2) OOB as tolerated with assist 3) keep dressing clean and dry 4) Daily IS Code(s): I70.322 - ATHSCL UNSP TYPE [place]PASS OF THE EXTRM W REST PAIN, LEFT LEG
--- NOTE | 2017-07-12 14:16 | PN ---
Teaching Attending Note Name of Resident: Jeffrey Bolanos ATTENDING PHYSICIAN STATEMENT I saw and evaluated the patient. I reviewed the resident's note and discussed the case with the resident. I agree with the resident's findings and plan as documented. SUBJECTIVE: No complaints. OBJECTIVE: Vital Signs Period Temp Pulse Resp BP Sys/Olguin Pulse Ox Last 24 Hr 97.6 F-98.2 F 73-84 18-20 110-148/48-65 97-98 HEART: S1S2, RRR LUNGS: Clear ABDOMEN: Obese, soft, non-tender, non-distended, normal BS EXTREMITIES: No edema Laboratory Results - last 24 hr 07/12/17 07/12/17 07/12/17 06:30 06:30 06:30 WBC 8.0 RBC 3.03 L Hgb 9.0 L Hct 27.6 L MCV 91.1 MCH 29.8 MCHC 32.7 RDW 18.5 H Plt Count 275 D MPV 9.6 Neutrophils % 58.6 Lymphocytes % 25.3 Monocytes % 9.6 Eosinophils % 5.8 H Basophils % 0.7 PT with INR 14.40 H INR 1.27 H Sodium 141 Potassium 5.0 Chloride 101 Carbon Dioxide 31 Anion Gap 9 BUN 20 H Creatinine 1.0 Creat Clearance w eGFR 55.14 Random Glucose 94 Calcium 8.9 Total Bilirubin 0.4 D AST 29 ALT 36 Alkaline Phosphatase 95 Total Protein 6.0 L Albumin 2.9 L Current Medications Generic Name Dose Route Start Last Admin Trade Name Freq PRN Reason Stop Dose Admin Acetaminophen 650 mg 07/10/17 20:25 07/12/17 00:58 Tylenol - PO 650 mg Q6H PRN Administration FEVER Albuterol Sulfate 1 amp 07/10/17 20:25 Ventolin 0.083% Nebulizer Soln - NEB Q4H PRN SHORT OF BREATH/WHEEZING Albuterol Sulfate 1 amp 07/11/17 08:00 07/12/17 11:06 Ventolin 0.083% Nebulizer Soln - NEB 1 amp RQID JULIET Administration Atorvastatin Calcium 20 mg 07/10/17 22:00 07/11/17 21:36 Lipitor - PO 20 mg HS JULIET Administration Chlorhexidine Gluconate 1 applic 07/10/17 22:00 07/11/17 21:35 Hibiclens For Decolonization - TP Not Given HS JULIET Clopidogrel Bisulfate 75 mg 07/11/17 10:00 07/12/17 10:09 Plavix - PO 75 mg DAILY [facility] Administration Docusate Sodium 100 mg 07/10/17 20:25 Colace - PO Q8H PRN CONSTIPATION Enoxaparin Sodium 70 mg 07/11/17 10:15 07/12/17 10:11 Lovenox - SQ 70 mg BID [facility] Administration Fluticasone Propionate 1 spray 07/11/17 10:00 07/12/17 10:13 Flonase - NS 1 spray DAILY [facility] Administration Gabapentin 600 mg 07/10/17 22:00 07/12/17 13:05 Neurontin - PO 600 mg QID JULIET Administration Cefazolin Sodium 1 gm/ 50 mls @ 100 mls/hr 07/11/17 02:00 07/12/17 10:08 Dextrose IVPB 100 mls/hr Q8H-IV JULIET Administration Lisinopril 20 mg 07/11/17 10:00 07/12/17 10:09 Prinivil PO 20 mg DAILY [facility] Administration Montelukast Sodium 10 mg 07/10/17 22:00 07/11/17 21:36 Singulair - PO 10 mg HS [facility] Administration Morphine Sulfate 2 mg 07/10/17 20:25 07/12/17 04:37 Morphine Sulfate IVPUSH 2 mg Q4H PRN Administration PAIN LEVEL 7 - 10 Mupirocin 1 applic 07/10/17 22:00 07/12/17 10:09 Bactroban Ointment (For Decolonization) - NS 07/12/17 21:59 Not Given BID [facility] Nicotine 21 mg 07/11/17 10:00 07/12/17 10:10 Nicoderm Patch - TD 21 mg DAILY [facility] Administration Ondansetron HCl 4 mg 07/10/17 20:25 Zofran Injection IVPUSH Q6H PRN NAUSEA AND/OR VOMITING Oxycodone HCl 5 mg 07/10/17 20:25 Roxicodone - PO Q4H PRN PAIN LEVEL 1-3 Oxycodone HCl 10 mg 07/10/17 20:25 07/12/17 10:14 Roxicodone - PO 10 mg Q6H PRN Administration PAIN LEVEL 4 - 6 Pantoprazole Sodium 40 mg 07/11/17 10:00 07/12/17 10:09 Protonix - PO 40 mg DAILY J[facility] Administration Polyethylene Glycol 17 gm 07/11/17 10:00 07/12/17 10:13 Miralax (For Daily Use) - PO Not Given DAILY JULIET Senna 2 tab 07/10/17 20:25 Senna - PO HS PRN CONSTIPATION Tiotropium [place] 1 puff 07/11/17 10:00 07/12/17 10:10 Spiriva - IH 1 puff DAILY [facility] Administration Verapamil HCl 180 mg 07/11/17 10:00 07/12/17 10:11 Calan Sr - PO 180 mg DAILY [facility] Administration Warfarin Sodium 4 mg 07/11/17 18:00 07/11/17 17:25 Coumadin - PO 4 mg DAILY@1800 JULIET Administration ASSESSMENT AND PLAN: This is a 66 year old woman with a history of PAD, LLE bypass, CAD, stent, HTN, hyperlipidemia, COPD who presented to the ED with left leg pain. 1. PAD with left foot ischemia - s/p left femoral and popliteal thrombectomy, popliteal anterior tibial bypass 03/20/17 - s/p left femoral popliteal bypass, angioplasty of distal anterior tibial artery, thrombectomy of tibial bypass graft 07/07 - Continue Plavix, Lipitor, Coumadin - Continue Lovenox until INR therapeutic 2. CAD, history of stents - Continue Plavix, Lipitor 3. COPD - Stable - Continue Singulair, Spiriva, albuterol nebs 4. HTN - Continue Lisinopril, Calan SR 5. Hyperlipidemia - Continue Lipitor 6. Prolonged QTc 7. Nicotine dependence - Continue nicotine patch 8. CBD/pancreatic duct dilation - Plan for EGD, possible MRI/EUS
--- NOTE | 2017-07-12 16:51 | PN ---
Physical Exam: SUBJECTIVE: Patient seen and examined at bedside. Pt has no leg complaints at this time. Feels much better than before procedure. POD 5. No distress. Stable. OBJECTIVE: Vital Signs Period Temp Pulse Resp BP Sys/Olguin Pulse Ox Last 24 Hr 97.6 F-98.2 F 73-88 18-20 110-148/48-65 97-98 GENERAL: The patient is awake, alert, and fully oriented, in no acute distress. HEAD: Normal with no signs of trauma. EYES: PERRL, extraocular movements intact, sclera anicteric, conjunctiva clear. No ptosis. ENT: Ears normal, nares patent, oropharynx clear without exudates, moist mucous membranes. NECK: Trachea midline, full range of motion, supple. LUNGS: Breath sounds equal, clear to auscultation bilaterally, no wheezes, no crackles, no accessory muscle use. HEART: Regular rate and rhythm, S1, S2 without murmur, rub or gallop. ABDOMEN: Soft, nontender, nondistended, normoactive bowel sounds, no guarding, no rebound, no hepatosplenomegaly, no masses. EXTREMITIES: 2+ pulses, warm, well-perfused, no edema. NEUROLOGICAL: Cranial nerves II through XII grossly intact. Normal speech, gait not observed. PSYCH: Normal mood, normal affect. SKIN: Warm, dry, normal turgor, no rashes or lesions noted Laboratory Results - last 24 hr 07/12/17 07/12/17 07/12/17 06:30 06:30 06:30 WBC 8.0 RBC 3.03 L Hgb 9.0 L Hct 27.6 L MCV 91.1 MCH 29.8 MCHC 32.7 RDW 18.5 H Plt Count 275 D MPV 9.6 Neutrophils % 58.6 Lymphocytes % 25.3 Monocytes % 9.6 Eosinophils % 5.8 H Basophils % 0.7 PT with INR 14.40 H INR 1.27 H Sodium 141 Potassium 5.0 Chloride 101 Carbon Dioxide 31 Anion Gap 9 BUN 20 H Creatinine 1.0 Creat Clearance w eGFR 55.14 Random Glucose 94 Calcium 8.9 Total Bilirubin 0.4 D AST 29 ALT 36 Alkaline Phosphatase 95 Total Protein 6.0 L Albumin 2.9 L Active Medications Generic Name Dose Route Start Last Admin Trade Name Freq PRN Reason Stop Dose Admin Acetaminophen 650 mg 07/10/17 20:25 07/12/17 00:58 Tylenol - PO 650 mg Q6H PRN Administration FEVER Albuterol Sulfate 1 amp 07/10/17 20:25 Ventolin 0.083% Nebulizer Soln - NEB Q4H PRN SHORT OF BREATH/WHEEZING Albuterol Sulfate 1 amp 07/11/17 08:00 07/12/17 11:06 Ventolin 0.083% Nebulizer Soln - NEB 1 amp RQID JULIET Administration Atorvastatin Calcium 20 mg 07/10/17 22:00 07/11/17 21:36 Lipitor - PO 20 mg HS JULIET Administration Chlorhexidine Gluconate 1 applic 07/10/17 22:00 07/11/17 21:35 Hibiclens For Decolonization - TP Not Given HS JULIET Clopidogrel Bisulfate 75 mg 07/11/17 10:00 07/12/17 10:09 Plavix - PO 75 mg DAILY [facility] Administration Docusate Sodium 100 mg 07/10/17 20:25 Colace - PO Q8H PRN CONSTIPATION Enoxaparin Sodium 70 mg 07/11/17 10:15 07/12/17 10:11 Lovenox - SQ 70 mg BID J[facility]ET Administration Fluticasone Propionate 1 spray 07/11/17 10:00 07/12/17 10:13 Flonase - NS 1 spray DAILY [facility] Administration Gabapentin 600 mg 07/10/17 22:00 07/12/17 13:05 Neurontin - PO 600 mg QID JULIET Administration Cefazolin Sodium 1 gm/ 50 mls @ 100 mls/hr 07/11/17 02:00 07/12/17 10:08 Dextrose IVPB 100 mls/hr Q8H-IV JULIET Administration Lisinopril 20 mg 07/11/17 10:00 07/12/17 10:09 Prinivil PO 20 mg DAILY [facility] Administration Montelukast Sodium 10 mg 07/10/17 22:00 07/11/17 21:36 Singulair - PO 10 mg HS JULIET Administration Morphine Sulfate 2 mg 07/10/17 20:25 07/12/17 04:37 Morphine Sulfate IVPUSH 2 mg Q4H PRN Administration PAIN LEVEL 7 - 10 Mupirocin 1 applic 07/10/17 22:00 07/12/17 10:09 Bactroban Ointment (For Decolonization) - NS 07/12/17 21:59 Not Given BID JULIET Nicotine 21 mg 07/11/17 10:00 07/12/17 10:10 Nicoderm Patch - TD 21 mg DAILY [facility] Administration Ondansetron HCl 4 mg 07/10/17 20:25 Zofran Injection IVPUSH Q6H PRN NAUSEA AND/OR VOMITING Oxycodone HCl 5 mg 07/10/17 20:25 Roxicodone - PO Q4H PRN PAIN LEVEL 1-3 Oxycodone HCl 10 mg 07/10/17 20:25 07/12/17 10:14 Roxicodone - PO 10 mg Q6H PRN Administration PAIN LEVEL 4 - 6 Pantoprazole Sodium 40 mg 07/11/17 10:00 07/12/17 10:09 Protonix - PO 40 mg DAILY [facility] Administration Polyethylene Glycol 17 gm 07/11/17 10:00 07/12/17 10:13 Miralax (For Daily Use) - PO Not Given DAILY JULIET Senna 2 tab 07/10/17 20:25 Senna - PO HS PRN CONSTIPATION Tiotropium [place] 1 puff 07/11/17 10:00 07/12/17 10:10 Spiriva - IH 1 puff DAILY [facility] Administration Verapamil HCl 180 mg 07/11/17 10:00 07/12/17 10:11 Calan Sr - PO 180 mg DAILY [facility] Administration Warfarin Sodium 5 mg 07/12/17 18:00 Coumadin - PO DAILY@1800 [facility] ASSESSMENT/PLAN: 66 y/o F with PMH PAD with LLE fem-pop thrombectomy, pop-tib ant bypass, b/l SFA stents who came to ED with LLE pain. Pt seen by Eddie who performed L fem-pop bypass. POD 5. #PAD -improved post surg -POD 5 -No complaints -palpable pulses #Subtherapeutic INR -INR 1.27 -Coumadin increased to 5mg # CAD, history of stents -Plavix -Lipitor # COPD Stable -Singulair -Spiriva -Albuterol nebs # HTN -Lisinopril -Verapamil # HLD -Lipitor # Nicotine dependence -nicotine patch #DVT ppx: on Lovenox,coumadin follow INR Jeffrey Bolanos MD PGY-1 IM Visit type - Emergency Visit Emergency Visit: No - New Patient This patient is new to me today: Yes Date on this admission: 07/13/17 - Critical Care Critical Care patient: No
[2017-07-12] MEDS: BACITRACIN 15 GM TUBE TOPICAL OINTMENT TP SCH (18:25)
[2017-07-12] MEDS: WARFARIN NA 5 MG TABLET (UD) PO SCH (18:26)
[2017-07-12] MEDS: ATORVASTATIN CA 20 MG TABLET (FP) PO SCH (22:09)
[2017-07-12] MEDS: MONTELUKAST NA 10 MG TABLET PO SCH (22:09)
[2017-07-12] MEDS: CHLORHEXIDINE GLUCONATE 4% CLEANSER FOR DECOLONIZATION TP SCH (22:10)
[2017-07-13] MEDS ORDERED: ceFAZolin SODIUM 1 GM VIAL ONE ×2 (01:55→09:48)
[2017-07-13] MEDS ORDERED: DEXTROSE 5%-WATER - 50 ML IVPB ONE ×2 (01:55→09:48)
[2017-07-13] MEDS: CEFAZOLIN 1 GM in DEXTROSE 5%-WATER - 50 ML IVPB SCH ×2 (02:09→10:09)
[2017-07-13] MEDS: oxyCODONE HCL 5 MG TABLET PO PRN ×3 (04:05→20:26)
[2017-07-13] MEDS: ACETAMINOPHEN 325 MG TABLET (FP) PO PRN ×2 (04:09→14:39)
[2017-07-13 06:07] LABS: APTT 72.2 sec (.); B2-GLYCOPROTEIN IGA <10 SAU (.); B2-GLYCOPROTEIN IGG <10 SGU (.); B2-GLYCOPROTEIN IGM <10 SMU (.); CARDIOLIPIN AB IGA <10 APL (.); DRVVT RATIO 1.2 ratio (.); DRVVT SCREEN SECONDS 63.7 sec (.); HEXAGONAL PHOSPHOLIPID NEUTRAL 14 sec (.)
[2017-07-13 06:51] LABS: EOS % 4.8 % (0-4.5); HEMATOCRIT 26.2 % (32.4-45.2); HEMOGLOBIN 8.7 GM/dL (10.7-15.3); LYMPH % 15.5 % (8-40); MCHC 33.2 g/dl (32.0-36.0); MEAN CELL VOLUME 90.2 fl (80-96); MEAN PLT VOLUME 9.2 fl (7.5-11.1); MONO % 10.1 % (3.8-10.2); NEUT % 68.6 % (42.8-82.8); PLATELET COUNT 278 K/MM3 (134-434); RDW 18.6 % (11.6-15.6); WHITE BLOOD COUNT 9.9 K/mm3 (4.0-10.0)
[2017-07-13 07:10] LABS: INR 1.54 (0.82-1.09); PROTHROMBIN TIME (PATIENT) 17.4 SEC (9.7-13.0)
[2017-07-13 07:15] LABS: ALBUMIN 2.6 g/dl (3.4-5.0); ANION GAP 8 (8-16); BLOOD UREA NITROGEN 17 mg/dL (7-18); CALCIUM 8.2 mg/dL (8.5-10.1); CHLORIDE 105 mmol/L (98-107); CO2 27 mmol/L (21-32); GLUCOSE,RANDOM 104 mg/dL (74-106); POTASSIUM 4.6 mmol/L (3.5-5.1); SODIUM 140 mmol/L (136-145)
[2017-07-13 07:20] LABS: ALK PHOS 119 U/L (45-117); BILIRUBIN,TOTAL 0.5 mg/dL (0.2-1.0); CREATININE 0.8 mg/dL (0.55-1.02); SGOT/AST 25 U/L (15-37); SGPT/ALT 31 U/L (12-78); TOT PROT 5.6 g/dl (6.4-8.2)
[2017-07-13] MEDS: ALBUTEROL SO4 0.083% IH SOL 2.5 MG/3 ML VIAL.NEB. NEB SCH ×4 (08:00→20:01)
[2017-07-13] MEDS ORDERED: PT OWN MED DRAWER 7, Y5N ONE (09:47)
[2017-07-13] MEDS: ENOXAPARIN NA (PORCINE) 80 MG/0.8 ML DISP.SYRIN SQ SCH ×2 (10:05→21:11)
[2017-07-13] MEDS: GABAPENTIN 300 MG CAPSULE (FP) PO SCH ×4 (10:05→21:11)
[2017-07-13] MEDS: VERAPAMIL HCL 180 MG E.R. TABLET (FP) PO SCH (10:05)
[2017-07-13] MEDS: PANTOPRAZOLE 40 MG TABLET (FP) PO SCH (10:06)
[2017-07-13] MEDS: CLOPIDOGREL BISULFATE 75 MG TABLET (FP) PO SCH (10:06)
[2017-07-13] MEDS: LISINOPRIL 20 MG TABLET (FP) PO SCH (10:06)
[2017-07-13] MEDS: NICOTINE 21 MG/24 HOURS TOPICAL PATCH TD SCH (10:06)
[2017-07-13] MEDS: POLYETHYLENE GLYCOL 3350 119 GM BTL PO SCH (10:06)
[2017-07-13] MEDS: FLUTICASONE PROP 0.05% 16 GM NASAL SPRAY NS SCH (10:06)
[2017-07-13] MEDS: BACITRACIN 15 GM TUBE TOPICAL OINTMENT TP SCH (10:07)
[2017-07-13] MEDS: TIOTROPIUM BROMIDE 18 MCG CAPSULES IH SCH (10:07)
--- NOTE | 2017-07-13 10:48 | PN ---
Progress Note, Physician History of Present Illness: PULMONARY ALERT,MILDLY DYSPNEIC AT REST - Current Medication List Current Medications: Active Medications Acetaminophen (Tylenol -) 650 mg PO Q6H PRN PRN Reason: FEVER Last Admin: 07/13/17 04:09 Dose: 650 mg Albuterol Sulfate (Ventolin 0.083% Nebulizer Soln -) 1 amp NEB Q4H PRN PRN Reason: SHORT OF BREATH/WHEEZING Albuterol Sulfate (Ventolin 0.083% Nebulizer Soln -) 1 amp NEB RQID [facility] Last Admin: 07/12/17 20:34 Dose: 1 amp Atorvastatin Calcium (Lipitor -) 20 mg PO [facility] Last Admin: 07/12/17 22:09 Dose: 20 mg Bacitracin (Bacitracin -) 1 applic TP DAILY [facility] Last Admin: 07/13/17 10:07 Dose: 1 applic Chlorhexidine Gluconate (Hibiclens For Decolonization -) 1 applic TP [facility] Last Admin: 07/12/17 22:10 Dose: Not Given Clopidogrel Bisulfate (Plavix -) 75 mg PO DAILY [facility] Last Admin: 07/13/17 10:06 Dose: 75 mg Docusate Sodium (Colace -) 100 mg PO Q8H PRN PRN Reason: CONSTIPATION Enoxaparin Sodium (Lovenox -) 70 mg SQ BID [facility] Last Admin: 07/13/17 10:05 Dose: 70 mg Fluticasone Propionate (Flonase -) 1 spray NS DAILY [facility] Last Admin: 07/13/17 10:06 Dose: 1 spray Gabapentin (Neurontin -) 600 mg PO QID [facility] Last Admin: 07/13/17 10:05 Dose: 600 mg Cefazolin Sodium 1 gm/ (Dextrose) 50 mls @ 100 mls/hr IVPB Q8H-IV [facility] Last Admin: 07/13/17 10:09 Dose: 100 mls/hr Lisinopril (Prinivil) 20 mg PO DAILY [facility] Last Admin: 07/13/17 10:06 Dose: 20 mg Montelukast Sodium (Singulair -) 10 mg PO HS [facility] Last Admin: 07/12/17 22:09 Dose: 10 mg Morphine Sulfate (Morphine Sulfate) 2 mg IVPUSH Q4H PRN PRN Reason: PAIN LEVEL 7 - 10 Last Admin: 07/12/17 19:46 Dose: 2 mg Nicotine (Nicoderm Patch -) 21 mg TD DAILY [facility] Last Admin: 07/13/17 10:06 Dose: 21 mg Ondansetron HCl (Zofran Injection) 4 mg IVPUSH Q6H PRN PRN Reason: NAUSEA AND/OR VOMITING Oxycodone HCl (Roxicodone -) 5 mg PO Q4H PRN PRN Reason: PAIN LEVEL 1-3 Oxycodone HCl (Roxicodone -) 10 mg PO Q6H PRN PRN Reason: PAIN LEVEL 4 - 6 Last Admin: 07/13/17 04:05 Dose: 10 mg Pantoprazole Sodium (Protonix -) 40 mg PO DAILY [facility] Last Admin: 07/13/17 10:06 Dose: 40 mg Polyethylene Glycol (Miralax (For Daily Use) -) 17 gm PO DAILY [facility] Last Admin: 07/13/17 10:06 Dose: 17 units Senna (Senna -) 2 tab PO HS PRN PRN Reason: CONSTIPATION Tiotropium [place] (Spiriva -) 1 puff IH DAILY [facility] Last Admin: 07/12/17 10:10 Dose: 1 puff Verapamil HCl (Calan Sr -) 180 mg PO DAILY [facility] Last Admin: 07/13/17 10:05 Dose: 180 mg Warfarin Sodium (Coumadin -) 5 mg PO DAILY@1800 [facility] Last Admin: 07/12/17 18:26 Dose: 5 mg - Objective Vital Signs: Vital Signs Temperature 98.6 F 07/13/17 05:33 Pulse Rate 83 07/13/17 05:33 Respiratory Rate 20 07/13/17 05:33 Blood Pressure 132/69 07/13/17 05:33 O2 Sat by Pulse Oximetry (%) 96 07/12/17 21:00 Constitutional: Yes: Well Nourished, Calm Eyes: Yes: WNL HENT: Yes: WNL Neck: Yes: WNL Cardiovascular: Yes: Regular Rate and Rhythm, S1, S2 Respiratory: Yes: Diminished Gastrointestinal: Yes: Normal Bowel Sounds, Soft Extremities: Yes: WNL Edema: No Labs: CBC, BMP 07/13/17 06:00 07/13/17 06:00 INR, PTT INR 1.54 (0.82-1.09) H 07/13/17 06:00 PTT Baseline 72.2 sec (.) H 07/07/17 06:00 Assessment/Plan Problem List - Problems (1) Arterial occlusion, lower extremity Code(s): I70.209 - UNSP ATHSCL [place] ARTERIES OF EXTREMITIES, UNSP EXTREMITY (2) CAD (coronary artery disease) Code(s): I25.10 - ATHSCL HEART DISEASE OF [place] CORONARY ARTERY W/O ANG PCTRS Qualifiers: Coronary Disease-Associated Artery/Lesion type: [place] artery [place] vs. transplanted heart: [place] heart Associated angina: without angina Qualified Code(s): I25.10 - Atherosclerotic heart disease of [place] coronary artery without angina pectoris (3) COPD exacerbation Code(s): J44.1 - CHRONIC OBSTRUCTIVE PULMONARY DISEASE W (ACUTE) EXACERBATION (4) Cellulitis Code(s): L03.90 - CELLULITIS, UNSPECIFIED (5) Left leg weakness Code(s): M62.81 - MUSCLE WEAKNESS (GENERALIZED) (6) Leg pain, left Code(s): M79.605 - PAIN IN LEFT LEG (7) PAD (peripheral artery disease) Code(s): I73.9 - PERIPHERAL VASCULAR DISEASE, UNSPECIFIED (8) Pain Code(s): R52 - PAIN, UNSPECIFIED (9) Paresthesia and pain of left extremity Code(s): M79.609 - PAIN IN UNSPECIFIED LIMB; R20.2 - PARESTHESIA OF SKIN (10) Peripheral vascular disease Code(s): I73.9 - PERIPHERAL VASCULAR DISEASE, UNSPECIFIED (11) Status post peripheral artery angioplasty with insertion of stent Code(s): Z95.820 - PERIPHERAL VASCULAR ANGIOPLASTY STATUS W IMPLANTS AND GRAFTS (12) Hyperlipemia, mixed Code(s): E78.2 - MIXED HYPERLIPIDEMIA Assessment/Plan s/p Left femoral popliteal bypass with PTFE. Angioplasty distal anterior tibial artery. Thrombectomy tibial bypass graft. COPD, active smoker CAD S/P PCI/stent HPL PAD S/P bilateral SFA stent Plan: -BP monitoring -Monitor coags and CBC -AC with Coumadin -Supplemental O2 to maintain saturation - Inhaled bronchodilators DR DELONG
[2017-07-13] MEDS: morphine SULFATE 4 MG/ML VIAL IVPUSH PRN (11:16)
--- NOTE | 2017-07-13 11:55 | OP ---
DATE OF OPERATION: 07/07/2017 SURGEON: Abrahan Morgan MD [employer] SUPERVISOR: MARIPOSA Be PROCEDURE: Left femoral popliteal bypass with prosthetic graft. Angioplasty of distal anterior tibial artery. Thrombectomy of tibial bypass graft. PREOPERATIVE DIAGNOSIS: Thrombosed bypass graft, left leg. POSTOPERATIVE DIAGNOSIS: Left femoral popliteal occlusion with tibial artery stenosis. ANESTHESIA: General. ANESTHESIOLOGIST: Deana Benites MD OPERATIVE FINDINGS: The left below-knee popliteal to tibial artery vein bypass was patent. The inflow vessel was occluded. Angiography revealed stenosis of the distal anterior tibial artery at the anastomosis with runoff to the foot via dorsalis pedis and plantar vessels. OPERATIVE PROCEDURE: Following routine patient identification with side and site verification, general anesthesia was induced. The left leg and groin were prepped with ChloraPrep. Timeout was performed. Incision was made through the medial calf scar from previous bypass surgery. This was carried down through subcutaneous tissues using cautery for hemostasis. The muscle fascia was incised, and the muscle adherent to the fascia was carefully divided. The tibial vein bypass graft was identified and was mobilized proximally and distally and encircled with vessel loop. It was not possible to fully mobilize the proximal anastomosis. The patient was systemically heparinized. The bypass graft was then opened with a longitudinal arteriotomy. There was no thrombus seen within the vessel. A number 3 Eliz catheter was passed distally and withdrawn with the removal of a small amount of thrombotic material. A catheter was then placed into the vein and angiography performed with dilute contrast and digital technique with the above-noted findings. The thrombectomy catheter was then passed proximally, and thrombus was removed from the popliteal artery anastomosis with return of some arterial bleeding. Based on the patent distal outflow and viability of the vein bypass, decision was made to proceed with reconstruction of the arterial inflow to the bypass. Therefore, the popliteal wound was packed with moist gauze, and attention was turned to the groin. An incision was made over the femoral pulse and carried down to subcutaneous tissues using cautery for hemostasis. The common femoral artery was dissected free from the inguinal ligament distally. The artery was encircled proximally and distally with vessel loops. The artery was then occluded with vascular clamps, and a longitudinal arteriotomy measuring approximately 15 mm was made. There was a large amount of thrombus within the vessel. There was no backbleeding from the occluded superficial femoral and minimal backbleeding from the deep femoral. A 6-mm ringed PTFE graft was selected for use. A proximal anastomosis was created between the graft and the artery using running sutures of 6-0 Prolene. Prior to completion of the suture line, the artery was allowed to flush, and the graft was occluded with a vascular clamp. Suture line was completed, and the artery was released. Bleeding from the suture line was controlled with Surgicel. A long metal tunnel was then passed in the subcutaneous plane between the 2 incisions and the graft carefully passed through the tunneler with care not to twist it. The leg was extended, and the graft was marked for length. It was then beveled and anastomosed to the side of the vein graft with running 6-0 Prolene sutures. Prior to completion of the suture line, the vessels were allowed to backbleed and flush, and the was filled with heparin solution. Suture line was then completed and flow restored to the tibial bypass graft. Surgicel and thrombin and Gelfoam were applied to control any bleeding from the suture lines. The proximal graft was then cannulated with a micropuncture needle and 5-Tajik catheter placed over a wire, which was then exchanged for a 5-Tajik sheath. Angiography was performed showing a patent graft to vein bypass to tibial artery with the above-noted stenosis in the tibial artery. A wire was passed through the grafts into the distal tibial artery, and the anterior tibial artery was dilated with a 2.5-mm angioplasty balloon. Repeat imaging revealed improved diameter and flow into the foot. The wire and sheath were removed and bleeding controlled with a mattress suture of 6-0 Prolene. Wounds were irrigated and closed with interrupted sutures of 3-0 Vicryl. Skin was closed with kami. A sterile dressing was applied, and the patient was taken to the recovery room in stable condition. Brian [id number]
--- NOTE | 2017-07-13 12:08 | PN ---
Progress Note (short form) - Note Progress Note: Chief Complaint: Events noted, notes reviewed, denies any chest pain or dyspnea History of Present Illness: Seen and examined on telemetry. Events noted, notes reviewed, denies any chest pain or dyspnea Medical therapy Current Medications Acetaminophen (Tylenol -) 650 mg PO Q6H PRN PRN Reason: FEVER Last Admin: 07/13/17 04:09 Dose: 650 mg Albuterol Sulfate (Ventolin 0.083% Nebulizer Soln -) 1 amp NEB Q4H PRN PRN Reason: SHORT OF BREATH/WHEEZING Albuterol Sulfate (Ventolin 0.083% Nebulizer Soln -) 1 amp NEB RQID [facility] Last Admin: 07/13/17 11:58 Dose: 1 amp Atorvastatin Calcium (Lipitor -) 20 mg PO [facility] Last Admin: 07/12/17 22:09 Dose: 20 mg Bacitracin (Bacitracin -) 1 applic TP DAILY [facility] Last Admin: 07/13/17 10:07 Dose: 1 applic Chlorhexidine Gluconate (Hibiclens For Decolonization -) 1 applic TP [facility] Last Admin: 07/12/17 22:10 Dose: Not Given Clopidogrel Bisulfate (Plavix -) 75 mg PO DAILY [facility] Last Admin: 07/13/17 10:06 Dose: 75 mg Docusate Sodium (Colace -) 100 mg PO Q8H PRN PRN Reason: CONSTIPATION Enoxaparin Sodium (Lovenox -) 70 mg SQ BID [facility] Last Admin: 07/13/17 10:05 Dose: 70 mg Fluticasone Propionate (Flonase -) 1 spray NS DAILY [facility] Last Admin: 07/13/17 10:06 Dose: 1 spray Gabapentin (Neurontin -) 600 mg PO QID [facility] Last Admin: 07/13/17 10:05 Dose: 600 mg Cefazolin Sodium 1 gm/ (Dextrose) 50 mls @ 100 mls/hr IVPB Q8H-IV [facility] Last Admin: 07/13/17 10:09 Dose: 100 mls/hr Lisinopril (Prinivil) 20 mg PO DAILY [facility] Last Admin: 07/13/17 10:06 Dose: 20 mg Montelukast Sodium (Singulair -) 10 mg PO HS [facility] Last Admin: 07/12/17 22:09 Dose: 10 mg Morphine Sulfate (Morphine Sulfate) 2 mg IVPUSH Q4H PRN PRN Reason: PAIN LEVEL 7 - 10 Last Admin: 07/13/17 11:16 Dose: 2 mg Nicotine (Nicoderm Patch -) 21 mg TD DAILY [facility] Last Admin: 07/13/17 10:06 Dose: 21 mg Ondansetron HCl (Zofran Injection) 4 mg IVPUSH Q6H PRN PRN Reason: NAUSEA AND/OR VOMITING Oxycodone HCl (Roxicodone -) 5 mg PO Q4H PRN PRN Reason: PAIN LEVEL 1-3 Oxycodone HCl (Roxicodone -) 10 mg PO Q6H PRN PRN Reason: PAIN LEVEL 4 - 6 Last Admin: 07/13/17 04:05 Dose: 10 mg Pantoprazole Sodium (Protonix -) 40 mg PO DAILY [facility] Last Admin: 07/13/17 10:06 Dose: 40 mg Polyethylene Glycol (Miralax (For Daily Use) -) 17 gm PO DAILY [facility] Last Admin: 07/13/17 10:06 Dose: 17 units Senna (Senna -) 2 tab PO HS PRN PRN Reason: CONSTIPATION Tiotropium [place] (Spiriva -) 1 puff IH DAILY [facility] Last Admin: 07/12/17 10:10 Dose: 1 puff Verapamil HCl (Calan Sr -) 180 mg PO DAILY [facility] Last Admin: 07/13/17 10:05 Dose: 180 mg Warfarin Sodium (Coumadin -) 5 mg PO DAILY@1800 [facility] Last Admin: 07/12/17 18:26 Dose: 5 mg Review of Systems: Constitutional: Denies fever, chills or weight loss Head and Neck: Denies Headaches, photophobia or blurring of vision Respiratory: Denies cough or sputum production Cardiovascular: As noted above Gastrointestinal: Denies nausea, vomiting, diarrhea or abdominal discomfort Genitourinary: Denies frequency or Urgency Endocrine: No symptoms reported Physical Examination: Last Vital Signs Temp Pulse Resp BP Pulse Ox 97.8 F 93 H 20 136/69 96 07/13/17 09:00 07/13/17 09:00 07/13/17 09:00 07/13/17 09:00 07/13/17 09:00 Intake & Output 07/10/17 07/11/17 07/12/17 07/13/17 23:59 23:59 23:59 23:59 Intake Total 400 50 550 Output Total 3 500 Balance 397 50 50 Weight 160 lb General: Awake, alert, oriented and calm Eyes: Pupils are equally reactive to light and accommodation external ocular muscles are intact anicteric sclera Neck: Supple negative JVD no bruit appreciated Heart: S1-S2 regular rate and rhythm Lungs: Diminished Breath Sounds at the Bases Abdomen: Soft benign normoactive bowel sounds no organomegaly Extremities: Negative edema and intact distal pulses no calf tenderness Lab Data: CBC, BMP 07/13/17 06:00 07/13/17 06:00 INR, PTT INR 1.54 (0.82-1.09) H 07/13/17 06:00 PTT Baseline 72.2 sec (.) H 18 06:00 ASSESSMENT: 1. Peripheral artery disease POD#6 history of fem-pop bypass with thrombosed left leg bypass post left femoral popliteal bypass with PTFE, angioplasty distal anterior tibial artery 2. CAD post PCI/stent, angina pectoris, stable 3. Hypertension 4. Hypercholesterolemia 5. COPD 6. Anemia PLAN: 1. Continue Lipitor 2. Conitinue Lisinopril 3. Continue Verapamil 4. Continue Lovenox bridging/Coumadin as per INR maintain 2-3, and continue Plavix with caution and close monitoring of CBC 5. Can be transferred to floor care from the cardiovascular point of view Tera Simental M.D.
[2017-07-13] MEDS: WARFARIN NA 5 MG TABLET (UD) PO SCH (17:02)
--- NOTE | 2017-07-13 19:43 | PN ---
Physical Exam: SUBJECTIVE: Patient seen and examined at bedside. Pt has no leg complaints at this time. Feels well. OBJECTIVE: Vital Signs Period Temp Pulse Resp BP Sys/Olguin Pulse Ox Last 24 Hr 97.5 F-98.6 F 68-93 16-20 114-136/56-71 96-96 GENERAL: The patient is awake, alert, and fully oriented, in no acute distress. HEAD: Normal with no signs of trauma. EYES: PERRL, extraocular movements intact, sclera anicteric, conjunctiva clear. No ptosis. ENT: Ears normal, nares patent, oropharynx clear without exudates, moist mucous membranes. NECK: Trachea midline, full range of motion, supple. LUNGS: Breath sounds equal, clear to auscultation bilaterally, no wheezes, no crackles, no accessory muscle use. HEART: Regular rate and rhythm, S1, S2 without murmur, rub or gallop. ABDOMEN: Soft, nontender, nondistended, normoactive bowel sounds, no guarding, no rebound, no hepatosplenomegaly, no masses. EXTREMITIES: 2+ pulses, warm, well-perfused, no edema. Toe malalignment. NEUROLOGICAL: Cranial nerves II through XII grossly intact. Normal speech, gait not observed. PSYCH: Normal mood, normal affect. SKIN: Warm, dry, normal turgor, no rashes or lesions noted Laboratory Results - last 24 hr 07/07/17 07/13/17 07/13/17 06:00 06:00 06:00 WBC 9.9 RBC 2.90 L Hgb 8.7 L Hct 26.2 L MCV 90.2 MCH 30.0 MCHC 33.2 RDW 18.6 H Plt Count 278 MPV 9.2 Neutrophils % 68.6 Lymphocytes % 15.5 D Monocytes % 10.1 Eosinophils % 4.8 H Basophils % 1.0 PT with INR 17.40 H INR 1.54 H PTT Baseline 72.2 H PTT Ratio Control 31.2 H Plt Neutralization 9.6 H dRVVT Confirm Interp 50.0 dRVVT Mixing Study 1.2 Hexagonal Phospholipid 14 H Sodium Potassium Chloride Carbon Dioxide Anion Gap BUN Creatinine Creat Clearance w eGFR Random Glucose Calcium Total Bilirubin AST ALT Alkaline Phosphatase Total Protein Albumin Wvub-0-Gjytagopaxzl <10 Ecng-1-Czydfvhsbdpi Ab <10 Beta-2-GPI IgM Ab <10 Anti-Prothrombin IgG 2 Phosphatidylserine IgG 2 Phosphatidylserine IgM 5 Cardiolipid IgG Ab <10 Cardiolipid IgA Ab <10 Cardiolipid IgM Ab 11 07/13/17 06:00 WBC RBC Hgb Hct MCV MCH MCHC RDW Plt Count MPV Neutrophils % Lymphocytes % Monocytes % Eosinophils % Basophils % PT with INR INR PTT Baseline PTT Ratio Control Plt Neutralization dRVVT Confirm Interp dRVVT Mixing Study Hexagonal Phospholipid Sodium 140 Potassium 4.6 Chloride 105 Carbon Dioxide 27 Anion Gap 8 BUN 17 Creatinine 0.8 Creat Clearance w eGFR > 60 Random Glucose 104 Calcium 8.2 L Total Bilirubin 0.5 D AST 25 ALT 31 Alkaline Phosphatase 119 H Total Protein 5.6 L Albumin 2.6 L Qhuj-2-Opqnsumcstdv Ptwp-4-Dwozyaiwiozx Ab Beta-2-GPI IgM Ab Anti-Prothrombin IgG Phosphatidylserine IgG Phosphatidylserine IgM Cardiolipid IgG Ab Cardiolipid IgA Ab Cardiolipid IgM Ab Active Medications Generic Name Dose Route Start Last Admin Trade Name Freq PRN Reason Stop Dose Admin Acetaminophen 650 mg 07/10/17 20:25 07/13/17 14:39 Tylenol - PO 650 mg Q6H PRN Administration FEVER Albuterol Sulfate 1 amp 07/10/17 20:25 Ventolin 0.083% Nebulizer Soln - NEB Q4H PRN SHORT OF BREATH/WHEEZING Albuterol Sulfate 1 amp 07/11/17 08:00 07/13/17 16:17 Ventolin 0.083% Nebulizer Soln - NEB 1 amp RQID [facility] Administration Atorvastatin Calcium 20 mg 07/10/17 22:00 07/12/17 22:09 Lipitor - PO 20 mg HS [facility] Administration Bacitracin 1 applic 07/12/17 16:45 07/13/17 10:07 Bacitracin - TP 1 applic DAILY [facility] Administration Chlorhexidine Gluconate 1 applic 07/10/17 22:00 07/12/17 22:10 Hibiclens For Decolonization - TP Not Given [facility] Clopidogrel Bisulfate 75 mg 07/11/17 10:00 07/13/17 10:06 Plavix - PO 75 mg DAILY [facility] Administration Docusate Sodium 100 mg 07/10/17 20:25 Colace - PO Q8H PRN CONSTIPATION Enoxaparin Sodium 70 mg 07/11/17 10:15 07/13/17 10:05 Lovenox - SQ 70 mg BID [facility] Administration Fluticasone Propionate 1 spray 07/11/17 10:00 07/13/17 10:06 Flonase - NS 1 spray DAILY [facility] Administration Gabapentin 600 mg 07/10/17 22:00 07/13/17 17:02 Neurontin - PO 600 mg QID [facility] Administration Lisinopril 20 mg 07/11/17 10:00 07/13/17 10:06 Prinivil PO 20 mg DAILY [facility] Administration Montelukast Sodium 10 mg 07/10/17 22:00 07/12/17 22:09 Singulair - PO 10 mg HS [facility] Administration Morphine Sulfate 2 mg 07/10/17 20:25 07/13/17 11:16 Morphine Sulfate IVPUSH 2 mg Q4H PRN Administration PAIN LEVEL 7 - 10 Nicotine 21 mg 07/11/17 10:00 07/13/17 10:06 Nicoderm Patch - TD 21 mg DAILY [facility] Administration Ondansetron HCl 4 mg 07/10/17 20:25 Zofran Injection IVPUSH Q6H PRN NAUSEA AND/OR VOMITING Oxycodone HCl 5 mg 07/10/17 20:25 07/13/17 14:43 Roxicodone - PO 5 mg Q4H PRN Administration PAIN LEVEL 1-3 Oxycodone HCl 10 mg 07/10/17 20:25 07/13/17 04:05 Roxicodone - PO 10 mg Q6H PRN Administration PAIN LEVEL 4 - 6 Pantoprazole Sodium 40 mg 07/11/17 10:00 07/13/17 10:06 Protonix - PO 40 mg DAILY [facility] Administration Polyethylene Glycol 17 gm 07/11/17 10:00 07/13/17 10:06 Miralax (For Daily Use) - PO 17 units DAILY [facility] Administration Senna 2 tab 07/10/17 20:25 Senna - PO HS PRN CONSTIPATION Tiotropium [place] 1 puff 07/11/17 10:00 07/13/17 10:07 Spiriva - IH 1 puff DAILY [facility] Administration Verapamil HCl 180 mg 07/11/17 10:00 07/13/17 10:05 Calan Sr - PO 180 mg DAILY [facility] Administration Warfarin Sodium 5 mg 07/12/17 18:00 07/13/17 17:02 Coumadin - PO 5 mg DAILY@1800 [facility] Administration ASSESSMENT/PLAN: 66 y/o F with PMH PAD with LLE fem-pop thrombectomy, pop-tib ant bypass, b/l SFA stents who came to ED with LLE pain. Pt seen by Eddie who performed L fem-pop bypass. POD 5. #PAD -improved post surg -POD 6 -No complaints -full palpable pulses #Subtherapeutic INR -INR 1.5 -Coumadin increased to 5mg #CBD dilatation -GI plan to scope if pt is still in hosp on . Otherwise, procedure will be outpt. -MRI/MRCP planned for once kami are removed from leg incision site. # CAD, history of stents -Plavix -Lipitor # COPD Stable -Singulair -Spiriva -Albuterol nebs # HTN -Lisinopril -Verapamil # HLD -Lipitor # Nicotine dependence -nicotine patch #DVT ppx: on Lovenox,coumadin follow INR Jeffrey Bolanos MD PGY-1 IM Visit type - Emergency Visit Emergency Visit: No - New Patient This patient is new to me today: No - Critical Care Critical Care patient: No
--- NOTE | 2017-07-13 19:53 | PN ---
Teaching Attending Note Name of Resident: Jeffrey Bolanos ATTENDING PHYSICIAN STATEMENT I saw and evaluated the patient. I reviewed the resident's note and discussed the case with the resident. I agree with the resident's findings and plan as documented with exceptions below. SUBJECTIVE: patient seen and examined. NO new complaints, no leg pain, tolerating diet well. OBJECTIVE: Vital Signs Period Temp Pulse Resp BP Sys/Olguin Pulse Ox Last 24 Hr 97.5 F-98.6 F 68-93 16-20 114-136/56-71 96-96 Intake & Output 07/10/17 07/11/17 07/12/17 07/13/17 23:59 23:59 23:59 23:59 Intake Total 400 50 550 Output Total 3 500 700 Balance 397 50 50 -700 Weight 160 lb General: sitting in chair no acute distress Extremities: LLE strong DP pulses Abdomen: soft, NT, ND Home Medication List Medication Instructions Recorded Confirmed Type Gabapentin 600 mg PO QID 02/19/17 07/05/17 History Montelukast Na [Singulair -] 10 mg PO HS 02/19/17 07/06/17 History Verapamil HCl ER [Calan Sr -] 180 mg PO DAILY 02/19/17 07/05/17 History Warfarin Sodium [Coumadin] 3 mg PO 07/05/17 History Warfarin Sodium [Coumadin] 3.5 mg PO 07/05/17 History Active Medications Generic Name Dose Route Start Last Admin Trade Name Freq PRN Reason Stop Dose Admin Acetaminophen 650 mg 07/10/17 20:25 07/13/17 14:39 Tylenol - PO 650 mg Q6H PRN Administration FEVER Albuterol Sulfate 1 amp 07/10/17 20:25 Ventolin 0.083% Nebulizer Soln - NEB Q4H PRN SHORT OF BREATH/WHEEZING Albuterol Sulfate 1 amp 07/11/17 08:00 07/13/17 16:17 Ventolin 0.083% Nebulizer Soln - NEB 1 amp RQID [facility] Administration Atorvastatin Calcium 20 mg 07/10/17 22:00 07/12/17 22:09 Lipitor - PO 20 mg HS [facility] Administration Bacitracin 1 applic 07/12/17 16:45 07/13/17 10:07 Bacitracin - TP 1 applic DAILY [facility] Administration Chlorhexidine Gluconate 1 applic 07/10/17 22:00 07/12/17 22:10 Hibiclens For Decolonization - TP Not Given HS [facility] Clopidogrel Bisulfate 75 mg 07/11/17 10:00 07/13/17 10:06 Plavix - PO 75 mg DAILY [facility] Administration Docusate Sodium 100 mg 07/10/17 20:25 Colace - PO Q8H PRN CONSTIPATION Enoxaparin Sodium 70 mg 07/11/17 10:15 07/13/17 10:05 Lovenox - SQ 70 mg BID [facility] Administration Fluticasone Propionate 1 spray 07/11/17 10:00 07/13/17 10:06 Flonase - NS 1 spray DAILY [facility] Administration Gabapentin 600 mg 07/10/17 22:00 07/13/17 17:02 Neurontin - PO 600 mg QID [facility] Administration Lisinopril 20 mg 07/11/17 10:00 07/13/17 10:06 Prinivil PO 20 mg DAILY [facility] Administration Montelukast Sodium 10 mg 07/10/17 22:00 07/12/17 22:09 Singulair - PO 10 mg HS [facility] Administration Morphine Sulfate 2 mg 07/10/17 20:25 07/13/17 11:16 Morphine Sulfate IVPUSH 2 mg Q4H PRN Administration PAIN LEVEL 7 - 10 Nicotine 21 mg 07/11/17 10:00 07/13/17 10:06 Nicoderm Patch - TD 21 mg DAILY [facility] Administration Ondansetron HCl 4 mg 07/10/17 20:25 Zofran Injection IVPUSH Q6H PRN NAUSEA AND/OR VOMITING Oxycodone HCl 5 mg 07/10/17 20:25 07/13/17 14:43 Roxicodone - PO 5 mg Q4H PRN Administration PAIN LEVEL 1-3 Oxycodone HCl 10 mg 07/10/17 20:25 07/13/17 04:05 Roxicodone - PO 10 mg Q6H PRN Administration PAIN LEVEL 4 - 6 Pantoprazole Sodium 40 mg 07/11/17 10:00 07/13/17 10:06 Protonix - PO 40 mg DAILY [facility] Administration Polyethylene Glycol 17 gm 07/11/17 10:00 07/13/17 10:06 Miralax (For Daily Use) - PO 17 units DAILY [facility] Administration Senna 2 tab 07/10/17 20:25 Senna - PO HS PRN CONSTIPATION Tiotropium [place] 1 puff 07/11/17 10:00 07/13/17 10:07 Spiriva - IH 1 puff DAILY [facility] Administration Verapamil HCl 180 mg 07/11/17 10:00 07/13/17 10:05 Calan Sr - PO 180 mg DAILY [facility] Administration Warfarin Sodium 5 mg 07/12/17 18:00 07/13/17 17:02 Coumadin - PO 5 mg DAILY@1800 [facility] Administration Laboratory Results - last 24 hr 07/07/17 07/13/17 07/13/17 06:00 06:00 06:00 WBC 9.9 RBC 2.90 L Hgb 8.7 L Hct 26.2 L MCV 90.2 MCH 30.0 MCHC 33.2 RDW 18.6 H Plt Count 278 MPV 9.2 Neutrophils % 68.6 Lymphocytes % 15.5 D Monocytes % 10.1 Eosinophils % 4.8 H Basophils % 1.0 PT with INR 17.40 H INR 1.54 H PTT Baseline 72.2 H PTT Ratio Control 31.2 H Plt Neutralization 9.6 H dRVVT Confirm Interp 50.0 dRVVT Mixing Study 1.2 Hexagonal Phospholipid 14 H Sodium Potassium Chloride Carbon Dioxide Anion Gap BUN Creatinine Creat Clearance w eGFR Random Glucose Calcium Total Bilirubin AST ALT Alkaline Phosphatase Total Protein Albumin Lwnw-6-Gojwdbizqlay <10 Krpy-6-Vjsgxpecnwtq Ab <10 Beta-2-GPI IgM Ab <10 Anti-Prothrombin IgG 2 Phosphatidylserine IgG 2 Phosphatidylserine IgM 5 Cardiolipid IgG Ab <10 Cardiolipid IgA Ab <10 Cardiolipid IgM Ab 11 07/13/17 06:00 WBC RBC Hgb Hct MCV MCH MCHC RDW Plt Count MPV Neutrophils % Lymphocytes % Monocytes % Eosinophils % Basophils % PT with INR INR PTT Baseline PTT Ratio Control Plt Neutralization dRVVT Confirm Interp dRVVT Mixing Study Hexagonal Phospholipid Sodium 140 Potassium 4.6 Chloride 105 Carbon Dioxide 27 Anion Gap 8 BUN 17 Creatinine 0.8 Creat Clearance w eGFR > 60 Random Glucose 104 Calcium 8.2 L Total Bilirubin 0.5 D AST 25 ALT 31 Alkaline Phosphatase 119 H Total Protein 5.6 L Albumin 2.6 L Jtsi-6-Jyaanmeviszo Frif-6-Edbdnnmayiuo Ab Beta-2-GPI IgM Ab Anti-Prothrombin IgG Phosphatidylserine IgG Phosphatidylserine IgM Cardiolipid IgG Ab Cardiolipid IgA Ab Cardiolipid IgM Ab ASSESSMENT AND PLAN: 66 yof with a history of PAD, LLE bypass, CAD, stent, HTN, hyperlipidemia, COPD who presented to the ED with left leg pain. -PAD with left foot ischemia s/p left femoral and popliteal thrombectomy, popliteal anterior tibial bypass 03/20/17, s/p left femoral popliteal bypass, angioplasty of distal anterior tibial artery, thrombectomy of tibial bypass graft 07/07 -CAD h/o PCI -COPD -HTN -HLD -Prolonged QTc -Nicotine dependence -CBD/pancreatic ductal dilataion Plan Lovenox/coumadin bridging, goal INR 2-3, plavix with caution. Lovenox self teaching. Continue lipitor. Outpatient MRI/EUS when improved from PAD standpoint. EGD inpatient vs outpatient based on clinical course Dispo in 24-48 hours pending Lovenox teaching and GI input Plan discussed with patient in detail, all questions answered.
[2017-07-13] MEDS: MONTELUKAST NA 10 MG TABLET PO SCH (21:11)
[2017-07-13] MEDS: ATORVASTATIN CA 20 MG TABLET (FP) PO SCH (21:11)
[2017-07-13] MEDS: CHLORHEXIDINE GLUCONATE 4% CLEANSER FOR DECOLONIZATION TP SCH (22:34)
[2017-07-14] MEDS ORDERED: oxyCODONE HCL 5 MG TABLET PO PRN (05:34)
[2017-07-14] MEDS ORDERED: morphine SULFATE 4 MG/ML VIAL IVPUSH PRN (05:37)
--- NOTE | 2017-07-14 08:03 | PN ---
Teaching Attending Note Name of Resident: Jeffrey Bolanos ATTENDING PHYSICIAN STATEMENT I saw and evaluated the patient. I reviewed the resident's note and discussed the case with the resident. I agree with the resident's findings and plan as documented with exceptions below. SUBJECTIVE: Patient seen and examined. no compalints, tolerating diet, no new leg pain. OBJECTIVE: Vital Signs Period Temp Pulse Resp BP Sys/Olguin Pulse Ox Last 24 Hr 97 F-98.2 F 65-93 16-20 110-144/52-69 96-98 Intake & Output 07/11/17 07/12/17 07/13/17 07/14/17 23:59 23:59 23:59 23:59 Intake Total 50 550 360 10 Output Total 500 700 Balance 50 50 -340 10 General: sitting in bed in no acute distress Extremities: unchanged exam, Left DP pulses present Home Medication List Medication Instructions Recorded Confirmed Type Gabapentin 600 mg PO QID 02/19/17 07/05/17 History Montelukast Na [Singulair -] 10 mg PO HS 02/19/17 07/06/17 History Verapamil HCl ER [Calan Sr -] 180 mg PO DAILY 02/19/17 07/05/17 History Warfarin Sodium [Coumadin] 3 mg PO 07/05/17 History Warfarin Sodium [Coumadin] 3.5 mg PO 07/05/17 History Active Medications Generic Name Dose Route Start Last Admin Trade Name Freq PRN Reason Stop Dose Admin Acetaminophen 650 mg 07/10/17 20:25 07/13/17 14:39 Tylenol - PO 650 mg Q6H PRN Administration FEVER Albuterol Sulfate 1 amp 07/10/17 20:25 Ventolin 0.083% Nebulizer Soln - NEB Q4H PRN SHORT OF BREATH/WHEEZING Albuterol Sulfate 1 amp 07/11/17 08:00 07/13/17 20:01 Ventolin 0.083% Nebulizer Soln - NEB 1 amp RQID [facility]ET Administration Atorvastatin Calcium 20 mg 07/10/17 22:00 07/13/17 21:11 Lipitor - PO 20 mg HS [facility] Administration Bacitracin 1 applic 07/12/17 16:45 07/13/17 10:07 Bacitracin - TP 1 applic DAILY [facility] Administration Clopidogrel Bisulfate 75 mg 07/11/17 10:00 07/13/17 10:06 Plavix - PO 75 mg DAILY [facility] Administration Docusate Sodium 100 mg 07/10/17 20:25 Colace - PO Q8H PRN CONSTIPATION Enoxaparin Sodium 70 mg 07/11/17 10:15 07/13/17 21:11 Lovenox - SQ 70 mg BID [facility] Administration Fluticasone Propionate 1 spray 07/11/17 10:00 07/13/17 10:06 Flonase - NS 1 spray DAILY [facility] Administration Gabapentin 600 mg 07/10/17 22:00 07/13/17 21:11 Neurontin - PO 600 mg QID [facility] Administration Lisinopril 20 mg 07/11/17 10:00 07/13/17 10:06 Prinivil PO 20 mg DAILY [facility] Administration Montelukast Sodium 10 mg 07/10/17 22:00 07/13/17 21:11 Singulair - PO 10 mg HS [facility] Administration Morphine Sulfate 2 mg 07/14/17 05:37 07/14/17 05:47 Morphine Sulfate IVPUSH 2 mg Q4H PRN Administration PAIN LEVEL 7 - 10 Nicotine 21 mg 07/11/17 10:00 07/13/17 10:06 Nicoderm Patch - TD 21 mg DAILY [facility] Administration Ondansetron HCl 4 mg 07/10/17 20:25 Zofran Injection IVPUSH Q6H PRN NAUSEA AND/OR VOMITING Oxycodone HCl 10 mg 07/14/17 05:34 Roxicodone - PO Q6H PRN PAIN LEVEL 4 - 6 Oxycodone HCl 5 mg 07/14/17 05:35 Roxicodone - PO Q4H PRN PAIN LEVEL 1 - 3 Pantoprazole Sodium 40 mg 07/11/17 10:00 07/13/17 10:06 Protonix - PO 40 mg DAILY [facility] Administration Polyethylene Glycol 17 gm 07/11/17 10:00 07/13/17 10:06 Miralax (For Daily Use) - PO 17 units DAILY [facility] Administration Senna 2 tab 07/10/17 20:25 Senna - PO HS PRN CONSTIPATION Tiotropium [place] 1 puff 07/11/17 10:00 07/13/17 10:07 Spiriva - IH 1 puff DAILY [facility] Administration Verapamil HCl 180 mg 07/11/17 10:00 07/13/17 10:05 Calan Sr - PO 180 mg DAILY [facility] Administration Warfarin Sodium 5 mg 07/12/17 18:00 07/13/17 17:02 Coumadin - PO 5 mg DAILY@1800 J[facility]IET Administration ASSESSMENT AND PLAN: 66 yof with a history of PAD, LLE bypass, CAD, stent, HTN, hyperlipidemia, COPD who presented to the ED with left leg pain. -PAD with left foot ischemia s/p left femoral and popliteal thrombectomy, popliteal anterior tibial bypass 03/20/17, s/p left femoral popliteal bypass, angioplasty of distal anterior tibial artery, thrombectomy of tibial bypass graft 07/07 -CAD h/o PCI -COPD -HTN -HLD -Prolonged QTc -Nicotine dependence -CBD/pancreatic ductal dilataion Plan D/c lovenox. COumadin 5 mg with outpatient follow up. Cardiology/GI input appreciated. Discussed with Dr Mendosa, high risk to hold anti-coagulation currently given recent limb ischemia, also patient with no active abdominal symptoms, and non concerning chemistry, tolerating diet well. Outpatient EGD/colonoscopy and mRCP once leg surgical clips are removed. Wound care. Continue lipitor. D/c IV opioids, taper to off as tolerated. PT eval noted, rec SNf, discussed with SNf. Plan for home with [facility] vs SNF pending disposition arrangements. Plan discussed with patient in detail, all questions answered.
[2017-07-14] MEDS: ALBUTEROL SO4 0.083% IH SOL 2.5 MG/3 ML VIAL.NEB. NEB SCH ×4 (08:10→20:55)
[2017-07-14] MEDS ORDERED: PT OWN MED DRAWER 7, Y5N ONE (08:41)
[2017-07-14 09:06] LABS: PROTHROMBIN TIME (PATIENT) 22.6 SEC (9.7-13.0)
[2017-07-14 09:08] LABS: HEMATOCRIT 26.2 % (32.4-45.2); HEMOGLOBIN 8.5 GM/dL (10.7-15.3); MCHC 32.7 g/dl (32.0-36.0); MEAN CELL VOLUME 91.7 fl (80-96); MEAN PLT VOLUME 9.1 fl (7.5-11.1); PLATELET COUNT 302 K/MM3 (134-434); RBC 2.85 M/mm3 (3.60-5.2); RDW 19.1 % (11.6-15.6); WHITE BLOOD COUNT 8.3 K/mm3 (4.0-10.0)
[2017-07-14 09:09] LABS: ACTIVATED PTT 40.5 SECONDS (26.9-34.4)
--- NOTE | 2017-07-14 09:37 | PN ---
Progress Note, Physician History of Present Illness: No acute events. No GI related complaints this morning. - Current Medication List Current Medications: Active Medications Acetaminophen (Tylenol -) 650 mg PO Q6H PRN PRN Reason: FEVER Last Admin: 07/13/17 14:39 Dose: 650 mg Albuterol Sulfate (Ventolin 0.083% Nebulizer Soln -) 1 amp NEB Q4H PRN PRN Reason: SHORT OF BREATH/WHEEZING Albuterol Sulfate (Ventolin 0.083% Nebulizer Soln -) 1 amp NEB RQID [facility] Last Admin: 07/14/17 08:10 Dose: 1 amp Atorvastatin Calcium (Lipitor -) 20 mg PO [facility] Last Admin: 07/13/17 21:11 Dose: 20 mg Bacitracin (Bacitracin -) 1 applic TP DAILY [facility] Last Admin: 07/13/17 10:07 Dose: 1 applic Clopidogrel Bisulfate (Plavix -) 75 mg PO DAILY [facility] Last Admin: 07/13/17 10:06 Dose: 75 mg Docusate Sodium (Colace -) 100 mg PO Q8H PRN PRN Reason: CONSTIPATION Enoxaparin Sodium (Lovenox -) 70 mg SQ BID [facility] Last Admin: 07/13/17 21:11 Dose: 70 mg Fluticasone Propionate (Flonase -) 1 spray NS DAILY [facility] Last Admin: 07/13/17 10:06 Dose: 1 spray Gabapentin (Neurontin -) 600 mg PO QID [facility] Last Admin: 07/13/17 21:11 Dose: 600 mg Lisinopril (Prinivil) 20 mg PO DAILY [facility] Last Admin: 07/13/17 10:06 Dose: 20 mg Montelukast Sodium (Singulair -) 10 mg PO HS [facility] Last Admin: 07/13/17 21:11 Dose: 10 mg Nicotine (Nicoderm Patch -) 21 mg TD DAILY [facility] Last Admin: 07/13/17 10:06 Dose: 21 mg Ondansetron HCl (Zofran Injection) 4 mg IVPUSH Q6H PRN PRN Reason: NAUSEA AND/OR VOMITING Oxycodone HCl (Roxicodone -) 5 mg PO Q4H PRN PRN Reason: PAIN LEVEL 1 - 3 Pantoprazole Sodium (Protonix -) 40 mg PO DAILY [facility] Last Admin: 05/08/18 10:06 Dose: 40 mg Polyethylene Glycol (Miralax (For Daily Use) -) 17 gm PO DAILY [facility] Last Admin: 07/13/17 10:06 Dose: 17 units Senna (Senna -) 2 tab PO HS PRN PRN Reason: CONSTIPATION Tiotropium [place] (Spiriva -) 1 puff IH DAILY [facility] Last Admin: 07/13/17 10:07 Dose: 1 puff Verapamil HCl (Calan Sr -) 180 mg PO DAILY [facility] Last Admin: 07/13/17 10:05 Dose: 180 mg Warfarin Sodium (Coumadin -) 5 mg PO DAILY@1800 [facility] Last Admin: 07/13/17 17:02 Dose: 5 mg - Objective Vital Signs: Vital Signs Temperature 97 F L 07/14/17 07:21 Pulse Rate 72 07/14/17 07:21 Respiratory Rate 20 07/14/17 07:35 Blood Pressure 134/61 07/14/17 07:21 O2 Sat by Pulse Oximetry (%) 98 07/14/17 07:35 Constitutional: Yes: Well Nourished, No Distress, Calm Labs: CBC, BMP 07/14/17 06:30 INR, PTT INR 2.00 (0.82-1.09) H 07/14/17 06:30 PTT Baseline 72.2 sec (.) H 07/07/17 06:00 Problem List - Problems (1) Common bile duct dilation Code(s): K83.8 - OTHER SPECIFIED DISEASES OF BILIARY TRACT (2) Dilation of pancreatic duct Code(s): K86.89 - OTHER SPECIFIED DISEASES OF PANCREAS Assessment/Plan Continues to be asymptomatic. Liver chemistry normal. No signs of cholestasis. MRI, EUS as an option were discussed with the patient. Plan upper endoscopy to rule out intraluminal lesions. Due for screening colonoscopy. Hold Coumadin tonight. EGD and colonoscopy tomorrow if INR allows, Otherwise follow up as an outpatient. Patient agrees with the plan.
[2017-07-14] MEDS: NICOTINE 21 MG/24 HOURS TOPICAL PATCH TD SCH (09:44)
[2017-07-14] MEDS: VERAPAMIL HCL 180 MG E.R. TABLET (FP) PO SCH (09:44)
[2017-07-14] MEDS: GABAPENTIN 300 MG CAPSULE (FP) PO SCH ×4 (09:44→22:04)
[2017-07-14] MEDS: ENOXAPARIN NA (PORCINE) 80 MG/0.8 ML DISP.SYRIN SQ SCH (09:44)
[2017-07-14] MEDS: TIOTROPIUM BROMIDE 18 MCG CAPSULES IH SCH (09:45)
[2017-07-14] MEDS: CLOPIDOGREL BISULFATE 75 MG TABLET (FP) PO SCH (09:45)
[2017-07-14] MEDS: PANTOPRAZOLE 40 MG TABLET (FP) PO SCH (09:45)
[2017-07-14] MEDS: BACITRACIN 15 GM TUBE TOPICAL OINTMENT TP SCH (09:46)
[2017-07-14] MEDS: POLYETHYLENE GLYCOL 3350 119 GM BTL PO SCH (09:46)
[2017-07-14] MEDS: FLUTICASONE PROP 0.05% 16 GM NASAL SPRAY NS SCH (09:47)
[2017-07-14] MEDS: LISINOPRIL 20 MG TABLET (FP) PO SCH (09:54)
--- NOTE | 2017-07-14 10:06 | PN ---
Progress Note, Physician History of Present Illness: No complaints, await EGD/colonoscopy once INR acceptable. - Current Medication List Current Medications: Active Medications Acetaminophen (Tylenol -) 650 mg PO Q6H PRN PRN Reason: FEVER Last Admin: 07/13/17 14:39 Dose: 650 mg Albuterol Sulfate (Ventolin 0.083% Nebulizer Soln -) 1 amp NEB Q4H PRN PRN Reason: SHORT OF BREATH/WHEEZING Albuterol Sulfate (Ventolin 0.083% Nebulizer Soln -) 1 amp NEB RQID [facility] Last Admin: 07/14/17 08:10 Dose: 1 amp Atorvastatin Calcium (Lipitor -) 20 mg PO HS [facility] Last Admin: 07/13/17 21:11 Dose: 20 mg Bacitracin (Bacitracin -) 1 applic TP DAILY [facility] Last Admin: 07/14/17 09:46 Dose: 1 applic Clopidogrel Bisulfate (Plavix -) 75 mg PO DAILY [facility] Last Admin: 07/14/17 09:45 Dose: 75 mg Docusate Sodium (Colace -) 100 mg PO Q8H PRN PRN Reason: CONSTIPATION Enoxaparin Sodium (Lovenox -) 70 mg SQ BID [facility] Last Admin: 07/14/17 09:44 Dose: 70 mg Fluticasone Propionate (Flonase -) 1 spray NS DAILY [facility] Last Admin: 07/14/17 09:47 Dose: Not Given Gabapentin (Neurontin -) 600 mg PO QID [facility] Last Admin: 07/14/17 09:44 Dose: 600 mg Lisinopril (Prinivil) 20 mg PO DAILY [facility] Last Admin: 07/14/17 09:54 Dose: 20 mg Montelukast Sodium (Singulair -) 10 mg PO HS [facility] Last Admin: 07/13/17 21:11 Dose: 10 mg Nicotine (Nicoderm Patch -) 21 mg TD DAILY [facility] Last Admin: 07/14/17 09:44 Dose: 21 mg Ondansetron HCl (Zofran Injection) 4 mg IVPUSH Q6H PRN PRN Reason: NAUSEA AND/OR VOMITING Oxycodone HCl (Roxicodone -) 5 mg PO Q4H PRN PRN Reason: PAIN LEVEL 1 - 3 Pantoprazole Sodium (Protonix -) 40 mg PO DAILY [facility] Last Admin: 07/14/17 09:45 Dose: 40 mg Polyethylene Glycol (Miralax (For Daily Use) -) 17 gm PO DAILY [facility] Last Admin: 07/14/17 09:46 Dose: 17 units Senna (Senna -) 2 tab PO HS PRN PRN Reason: CONSTIPATION Tiotropium [place] (Spiriva -) 1 puff IH DAILY [facility] Last Admin: 07/14/17 09:45 Dose: 1 puff Verapamil HCl (Calan Sr -) 180 mg PO DAILY [facility] Last Admin: 07/14/17 09:44 Dose: 180 mg Warfarin Sodium (Coumadin -) 5 mg PO DAILY@1800 [facility] Last Admin: 07/13/17 17:02 Dose: 5 mg - Objective Vital Signs: Vital Signs Temperature 97 F L 07/14/17 07:21 Pulse Rate 110 H 07/14/17 09:48 Respiratory Rate 20 07/14/17 07:35 Blood Pressure 134/61 07/14/17 07:21 O2 Sat by Pulse Oximetry (%) 94 L 07/14/17 09:48 Constitutional: Yes: No Distress, Calm, Thin Neck: Yes: Supple Cardiovascular: Yes: Regular Rate and Rhythm Respiratory: Yes: Regular, Diminished, On Nasal O2 Gastrointestinal: Yes: Normal Bowel Sounds, Soft Edema: No Labs: CBC, BMP 07/14/17 06:30 INR, PTT INR 2.00 (0.82-1.09) H 07/14/17 06:30 PTT Baseline 72.2 sec (.) H 07/07/17 06:00 - ....Imaging EKG: Report Reviewed (Tele: SR) Problem List - Problems (1) Atherosclerosis of bypass graft of left lower extremity with rest pain Code(s): I70.322 - ATHSCL UNSP TYPE BYPASS OF THE EXTRM W REST PAIN, LEFT LEG (2) Common bile duct dilation Code(s): K83.8 - OTHER SPECIFIED DISEASES OF BILIARY TRACT (3) Dilation of pancreatic duct Code(s): K86.89 - OTHER SPECIFIED DISEASES OF PANCREAS (4) CAD (coronary artery disease) Code(s): I25.10 - ATHSCL HEART DISEASE OF [place] CORONARY ARTERY W/O ANG PCTRS Qualifiers: Coronary Disease-Associated Artery/Lesion type: [place] artery [place] vs. transplanted heart: [place] heart Associated angina: without angina Qualified Code(s): I25.10 - Atherosclerotic heart disease of [place] coronary artery without angina pectoris (5) S/P coronary artery stent placement Code(s): Z95.5 - PRESENCE OF CORONARY ANGIOPLASTY IMPLANT AND GRAFT (6) Status post peripheral artery angioplasty with insertion of stent Code(s): Z95.820 - PERIPHERAL VASCULAR ANGIOPLASTY STATUS W IMPLANTS AND GRAFTS (7) COPD (chronic obstructive pulmonary disease) Code(s): J44.9 - CHRONIC OBSTRUCTIVE PULMONARY DISEASE, UNSPECIFIED Qualifiers: COPD type: unspecified COPD Qualified Code(s): J44.9 - Chronic obstructive pulmonary disease, unspecified (8) HTN (hypertension) Code(s): I10 - ESSENTIAL (PRIMARY) HYPERTENSION Qualifiers: Hypertension type: essential hypertension Qualified Code(s): I10 - Essential (primary) hypertension (9) Hyperlipemia, mixed Code(s): E78.2 - MIXED HYPERLIPIDEMIA (10) Tobacco consumption Code(s): Z72.0 - TOBACCO USE Assessment/Plan 1. Peripheral artery disease POD#7 history of fem-pop bypass with thrombosed left leg bypass post left femoral popliteal bypass with PTFE, angioplasty distal anterior tibial artery with therapeutic INR 2. CAD post PCI/stent, angina pectoris, stable 3. Hypertension 4. Hypercholesterolemia 5. COPD 6. Anemia PLAN: 1. Continue Lipitor 20 qhs 2. Conitinue Lisinopril 20 qd 3. Continue Verapamil SR 180 qd 4. D/c Lovenox, continue Coumadin per INR 2-3, and continue Plavix 75 qd with caution and close monitoring of CBC 5. Can proceed with EGD and colonoscopy from CV-standpoint if INR acceptable vs outpatient basis, MRI, EUS as outpatient
[2017-07-14 10:22] LABS: CHLORIDE 106 mmol/L (98-107); POTASSIUM 4.9 mmol/L (3.5-5.1); SODIUM 141 mmol/L (136-145)
[2017-07-14 10:55] LABS: ACANTHOCYTES 1+; ANISOCYTOSIS 1+; MACROCYTOSIS 1+; OVALOCYTE 1+; PLATELET ESTIMATE NORMAL
--- NOTE | 2017-07-14 10:59 | PN ---
Progress Note, Physician History of Present Illness: PULMONARY ALERT,COMFORTABLE,NAD,-C/O CP,-SOB - Current Medication List Current Medications: Active Medications Acetaminophen (Tylenol -) 650 mg PO Q6H PRN PRN Reason: FEVER Last Admin: 07/13/17 14:39 Dose: 650 mg Albuterol Sulfate (Ventolin 0.083% Nebulizer Soln -) 1 amp NEB Q4H PRN PRN Reason: SHORT OF BREATH/WHEEZING Albuterol Sulfate (Ventolin 0.083% Nebulizer Soln -) 1 amp NEB RQID [facility] Last Admin: 07/14/17 08:10 Dose: 1 amp Atorvastatin Calcium (Lipitor -) 20 mg PO HS [facility] Last Admin: 07/13/17 21:11 Dose: 20 mg Bacitracin (Bacitracin -) 1 applic TP DAILY [facility] Last Admin: 07/14/17 09:46 Dose: 1 applic Clopidogrel Bisulfate (Plavix -) 75 mg PO DAILY [facility] Last Admin: 07/14/17 09:45 Dose: 75 mg Docusate Sodium (Colace -) 100 mg PO Q8H PRN PRN Reason: CONSTIPATION Fluticasone Propionate (Flonase -) 1 spray NS DAILY [facility] Last Admin: 07/14/17 09:47 Dose: Not Given Gabapentin (Neurontin -) 600 mg PO QID [facility] Last Admin: 07/14/17 09:44 Dose: 600 mg Lisinopril (Prinivil) 20 mg PO DAILY [facility] Last Admin: 07/14/17 09:54 Dose: 20 mg Montelukast Sodium (Singulair -) 10 mg PO HS [facility] Last Admin: 07/13/17 21:11 Dose: 10 mg Nicotine (Nicoderm Patch -) 21 mg TD DAILY [facility] Last Admin: 07/14/17 09:44 Dose: 21 mg Ondansetron HCl (Zofran Injection) 4 mg IVPUSH Q6H PRN PRN Reason: NAUSEA AND/OR VOMITING Oxycodone HCl (Roxicodone -) 5 mg PO Q4H PRN PRN Reason: PAIN LEVEL 1 - 3 Pantoprazole Sodium (Protonix -) 40 mg PO DAILY [facility] Last Admin: 07/14/17 09:45 Dose: 40 mg Polyethylene Glycol (Miralax (For Daily Use) -) 17 gm PO DAILY [facility] Last Admin: 07/14/17 09:46 Dose: 17 units Senna (Senna -) 2 tab PO HS PRN PRN Reason: CONSTIPATION Tiotropium [place] (Spiriva -) 1 puff IH DAILY [facility] Last Admin: 07/14/17 09:45 Dose: 1 puff Verapamil HCl (Calan Sr -) 180 mg PO DAILY [facility] Last Admin: 07/14/17 09:44 Dose: 180 mg Warfarin Sodium (Coumadin -) 5 mg PO DAILY@1800 [facility] Last Admin: 07/13/17 17:02 Dose: 5 mg - Objective Vital Signs: Vital Signs Temperature 97 F L 07/14/17 07:21 Pulse Rate 110 H 07/14/17 09:48 Respiratory Rate 20 07/14/17 07:35 Blood Pressure 134/61 07/14/17 07:21 O2 Sat by Pulse Oximetry (%) 94 L 07/14/17 09:48 Constitutional: Yes: Well Nourished, Calm Eyes: Yes: WNL HENT: Yes: WNL Neck: Yes: WNL Cardiovascular: Yes: Regular Rate and Rhythm, S1, S2 Respiratory: Yes: Diminished Gastrointestinal: Yes: Normal Bowel Sounds, Soft Extremities: Yes: WNL Edema: No Labs: CBC, BMP 07/14/17 06:30 INR, PTT INR 2.00 (0.82-1.09) H 07/14/17 06:30 PTT Baseline 72.2 sec (.) H 07/07/17 06:00 Assessment/Plan Problem List - Problems (1) Arterial occlusion, lower extremity Code(s): I70.209 - UNSP ATHSCL [place] ARTERIES OF EXTREMITIES, UNSP EXTREMITY (2) CAD (coronary artery disease) Code(s): I25.10 - ATHSCL HEART DISEASE OF [place] CORONARY ARTERY W/O ANG PCTRS Qualifiers: Coronary Disease-Associated Artery/Lesion type: [place] artery [place] vs. transplanted heart: [place] heart Associated angina: without angina Qualified Code(s): I25.10 - Atherosclerotic heart disease of [place] coronary artery without angina pectoris (3) COPD exacerbation Code(s): J44.1 - CHRONIC OBSTRUCTIVE PULMONARY DISEASE W (ACUTE) EXACERBATION (4) Cellulitis Code(s): L03.90 - CELLULITIS, UNSPECIFIED (5) Left leg weakness Code(s): M62.81 - MUSCLE WEAKNESS (GENERALIZED) (6) Leg pain, left Code(s): M79.605 - PAIN IN LEFT LEG (7) PAD (peripheral artery disease) Code(s): I73.9 - PERIPHERAL VASCULAR DISEASE, UNSPECIFIED (8) Pain Code(s): R52 - PAIN, UNSPECIFIED (9) Paresthesia and pain of left extremity Code(s): M79.609 - PAIN IN UNSPECIFIED LIMB; R20.2 - PARESTHESIA OF SKIN (10) Peripheral vascular disease Code(s): I73.9 - PERIPHERAL VASCULAR DISEASE, UNSPECIFIED (11) Status post peripheral artery angioplasty with insertion of stent Code(s): Z95.820 - PERIPHERAL VASCULAR ANGIOPLASTY STATUS W IMPLANTS AND GRAFTS (12) Hyperlipemia, mixed Code(s): E78.2 - MIXED HYPERLIPIDEMIA Assessment/Plan s/p Left femoral popliteal bypass with PTFE. Angioplasty distal anterior tibial artery. Thrombectomy tibial bypass graft. COPD, active smoker CAD S/P PCI/stent HPL PAD S/P bilateral SFA stent Plan: -no pulmonary contraindications for colonoscopy or egd -Monitor coags and CBC -AC -Supplemental O2 to maintain saturation - Inhaled bronchodilators DR DELONG
[2017-07-14 11:10] LABS: ALBUMIN 2.7 g/dl (3.4-5.0); ALK PHOS 111 U/L (45-117); ANION GAP 11 (8-16); BILIRUBIN,TOTAL 0.3 mg/dL (0.2-1.0); BLOOD UREA NITROGEN 18 mg/dL (7-18); CALCIUM 8.3 mg/dL (8.5-10.1); CO2 24 mmol/L (21-32); CREATININE 0.7 mg/dL (0.55-1.02); GLUCOSE,RANDOM 95 mg/dL (74-106); LIPASE 86 U/L (73-393); SGOT/AST 18 U/L (15-37); SGPT/ALT 31 U/L (12-78); TOT PROT 5.8 g/dl (6.4-8.2)
[2017-07-14] MEDS: ACETAMINOPHEN 325 MG TABLET (FP) PO PRN ×2 (14:18→23:17)
[2017-07-14] MEDS: oxyCODONE HCL 5 MG TABLET PO PRN ×2 (14:18→23:17)
--- NOTE | 2017-07-14 15:46 | DS ---
Physical Exam: SUBJECTIVE: Patient seen and examined at bedside. Pt is concerned about her INR. No other complaints. Pt is stable, afebrile. OBJECTIVE: Vital Signs Period Temp Pulse Resp BP Sys/Olguin Pulse Ox Last 24 Hr 97 F-98.4 F 65-110 18-20 110-144/52-63 94-98 PHYSICAL EXAM GENERAL: The patient is awake, alert, and fully oriented, in no acute distress. HEAD: Normal with no signs of trauma. EYES: sclera anicteric, conjunctiva clear. ENT:oropharynx clear without exudates, moist mucous membranes. NECK: Trachea midline, full range of motion, supple. LUNGS: Breath sounds equal, clear to auscultation bilaterally, no wheezes, no crackles, no accessory muscle use. HEART: Regular rate and rhythm, S1, S2 without murmur, rub or gallop. ABDOMEN: Soft, nontender, nondistended, normoactive bowel sounds, no guarding, no rebound, no hepatosplenomegaly, no masses. EXTREMITIES: 2+ pulses, warm, well-perfused, no edema. Graft on left leg with dressing cdi. Toe malalignment b/l. NEUROLOGICAL: Cranial nerves II through XII grossly intact. Normal speech, gait not observed. PSYCH: Normal mood, normal affect. SKIN: Warm, dry, normal turgor, no rashes or lesions noted. LABS Laboratory Results - last 24 hr 07/14/17 07/14/17 07/14/17 06:30 06:30 06:30 WBC 8.3 RBC 2.85 L Hgb 8.5 L Hct 26.2 L MCV 91.7 MCH 30.0 MCHC 32.7 RDW 19.1 H Plt Count 302 MPV 9.1 Neutrophils % No Result Required. Neutrophils % (Manual) 62.4 D Band Neutrophils % 0.0 Lymphocytes % No Result Required. Lymphocytes % (Manual) 20.2 D Monocytes % (Manual) 11 H D Eosinophils % (Manual) 3.7 D Basophils % (Manual) 0.9 D Myelocytes % (Man) 2 D Promyelocytes % (Man) 0 Blast Cells % (Manual) 0 Nucleated RBC % 0 Metamyelocytes 0 D Platelet Estimate Normal Polychromasia 2+ Anisocytosis 1+ Macrocytosis 1+ Ovalocytes 1+ Acanthocytes (Spur) 1+ PT with INR 22.60 H INR 2.00 H PTT (Actin FS) 40.5 H Sodium 141 Potassium 4.9 Chloride 106 Carbon Dioxide 24 Anion Gap 11 BUN 18 Creatinine 0.7 Creat Clearance w eGFR > 60 Random Glucose 95 Calcium 8.3 L Total Bilirubin 0.3 D AST 18 ALT 31 Alkaline Phosphatase 111 Total Protein 5.8 L Albumin 2.7 L Lipase 86 HOSPITAL COURSE: Date of Admission:07/06/17 Date of Discharge: 07/14/17 Pt is a 66 y/o F with PMH PAD with LLE fem-pop thrombectomy, pop-tib ant bypass , b/l SFA stents who came to ED with LLE pain. Pt was admitted for evaluation and treatment of PAD with Occluded L fem-pop stent and limb ischemia. Pt has had history of labile INR values. She was given heparin ggt, pain control, and consult was placed to her surgeon. The patient was seen by cardiology for pre-op evaluation. Pt seen by Eddie who performed Left femoral popliteal bypass with PTFE, angioplasty distal anterior tibial artery, thrombectomy of the tibial bypass graft. Prior to the procedure, pt was seen by heme/onc and was transfused FFP for low INR. Coumadin was held for the procedure. Post-op, she wsa transferred to ICU, Coumadin was resumed, and pt was given pain control. Regular medications were resumed, as well. She had continued workup of hypercoaguability by bruno. She also had age-appropriate cancer screening. CTA for evaluation of vascular flow and runoff incidentally detected a CBD dilatation. GI was consulted and made a plan to evaluate further once pt was stable. Pt continued to recover and was transferred to Tele floor. INR was resistant to increase into therapeutic range and necessitated multiple Coumadin dosage increases and Lovenox in the interim. At 5mg HS, INR became therapeutic and lovenox was discontinued. Pt is now therapeutic. She has PT eval recommending SNF. GI has plan to do endoscopy/colonoscopy as out pt and MRI/MRCP once kami in leg wound are removed. Pt was given instructions to follow up with her primary care, especially regarding her INR. She is afebrile and stable for d/c to SNF. Minutes to complete discharge: 30 Discharge Summary Reason For Visit: OCCLUSION OF ARTERY OF LOWER EXTREMITY Current Active Problems Anemia (Acute) Atherosclerosis of bypass graft of left lower extremity with rest pain (Acute) Common bile duct dilation (Acute) Dilation of pancreatic duct (Acute) Condition: Fair - Instructions Diet, Activity, Other Instructions: You were admitted for evaluation and treatment of peripheral arterial disease. You had a procedure done by your vascular surgeon to restore blood flow to your left leg and foot. Your Coumadin dose was held for that procedure and was resumed afterward. Because your coumadin was held, your INR dropped below the therapeutic range, and so you were given Lovenox to ensure adequate anticoagulation. Once your INR became therapeutic, you no longer had any need of Lovenox, and it was stopped. During your stay, you were given red blood cell transfusion, plasma transfusion , and platelet transfusion. During your stay, a common bile duct dilatation was incidentally seen on a CT scan done for another reason. This dilatation will need to be worked up by your GI, which may involve some procedures. These can be done as an out patient, but you will need to make sure to follow up with your GI doctor. During your recovery, you were monitored in the ICU, and then you were transferred to the telemetry floor. Throughout your hospital stay, you were seen by your surgeon, a general maintenance helper, a insights strategist, a manager organizational, and a merchandise adjustment clerk. Please make sure you take all your prescription medications as directed and follow up with your primary care doctor as well as your specialists. You will need to follow up your INR level within 2 days. If your symptoms recur or if you develop new symptoms, please return to the emergency department immediately. Disposition: VNS/HOME HEALTH CARE - Home Medications Comprehensive Discharge Medication List: Ambulatory Orders Gabapentin 600 mg PO QID 02/19/17 Montelukast Na [Singulair -] 10 mg PO HS 02/19/17 Verapamil HCl ER [Calan Sr -] 180 mg PO DAILY 02/19/17 Lisinopril [Prinivil] 20 mg PO DAILY #30 tablet 02/28/17 Pantoprazole Sodium [Protonix -] 40 mg PO DAILY #30 tablet.ec 02/28/17 Tiotropium [place] [Spiriva] 1 puff IH DAILY #1 inh 02/28/17 Atorvastatin Ca [Lipitor] 20 mg PO HS tablet 06/05/17 Cefuroxime Axetil [Ceftin -] 500 mg PO Q12H #14 tablet 06/05/17 Clopidogrel Bisulfate [Plavix -] 75 mg PO DAILY tablet 06/05/17 Docusate Sodium [Colace -] 100 mg PO Q8H PRN capsule 06/05/17 Fluconazole [Diflucan -] 200 mg PO DAILY #10 tablet 06/05/17 Nicotine Patch [Nicoderm Patch -] 21 mg TD DAILY patch 06/05/17 Polyethylene Glycol 3350 [Miralax 119 gm Btl -] 17 gm PO DAILY bottle 06/05/17 Sennosides [Senna -] 2 tab PO HS PRN tablet 06/05/17 Warfarin Sodium [Coumadin] 3 mg PO 07/05/17 Warfarin Sodium [Coumadin] 3.5 mg PO 07/05/17 - Discharge Referral Referred to [facility] No
[2017-07-14] MEDS: WARFARIN NA 5 MG TABLET (UD) PO SCH (17:30)
--- NOTE | 2017-07-14 18:23 | PN ---
Physical Exam: SUBJECTIVE: Patient seen and examined at bedside. Pt has no leg complaints at this time. Feels well. OBJECTIVE: Vital Signs Period Temp Pulse Resp BP Sys/Olguin Pulse Ox Last 24 Hr 97 F-98.4 F 65-110 20-20 110-144/52-63 94-98 GENERAL: The patient is awake, alert, and fully oriented, in no acute distress. HEAD: Normal with no signs of trauma. EYES: sclera anicteric, conjunctiva clear. ENT:oropharynx clear without exudates, moist mucous membranes. NECK: Trachea midline, full range of motion, supple. LUNGS: Breath sounds equal, clear to auscultation bilaterally, no wheezes, no crackles, no accessory muscle use. HEART: Regular rate and rhythm, S1, S2 without murmur, rub or gallop. ABDOMEN: Soft, nontender, nondistended, normoactive bowel sounds, no guarding, no rebound, no hepatosplenomegaly, no masses. EXTREMITIES: 2+ pulses, warm, well-perfused, no edema. Graft on left leg with dressing cdi. Toe malalignment b/l. NEUROLOGICAL: Cranial nerves II through XII grossly intact. Normal speech, gait not observed. PSYCH: Normal mood, normal affect. SKIN: Warm, dry, normal turgor, no rashes or lesions noted. Laboratory Results - last 24 hr 07/14/17 07/14/17 07/14/17 06:30 06:30 06:30 WBC 8.3 RBC 2.85 L Hgb 8.5 L Hct 26.2 L MCV 91.7 MCH 30.0 MCHC 32.7 RDW 19.1 H Plt Count 302 MPV 9.1 Neutrophils % No Result Required. Neutrophils % (Manual) 62.4 D Band Neutrophils % 0.0 Lymphocytes % No Result Required. Lymphocytes % (Manual) 20.2 D Monocytes % (Manual) 11 H D Eosinophils % (Manual) 3.7 D Basophils % (Manual) 0.9 D Myelocytes % (Man) 2 D Promyelocytes % (Man) 0 Blast Cells % (Manual) 0 Nucleated RBC % 0 Metamyelocytes 0 D Platelet Estimate Normal Polychromasia 2+ Anisocytosis 1+ Macrocytosis 1+ Ovalocytes 1+ Acanthocytes (Spur) 1+ PT with INR 22.60 H INR 2.00 H PTT (Actin FS) 40.5 H Sodium 141 Potassium 4.9 Chloride 106 Carbon Dioxide 24 Anion Gap 11 BUN 18 Creatinine 0.7 Creat Clearance w eGFR > 60 Random Glucose 95 Calcium 8.3 L Total Bilirubin 0.3 D AST 18 ALT 31 Alkaline Phosphatase 111 Total Protein 5.8 L Albumin 2.7 L Lipase 86 Active Medications Generic Name Dose Route Start Last Admin Trade Name Freq PRN Reason Stop Dose Admin Acetaminophen 650 mg 07/10/17 20:25 07/14/17 14:18 Tylenol - PO 650 mg Q6H PRN Administration FEVER Albuterol Sulfate 1 amp 07/10/17 20:25 Ventolin 0.083% Nebulizer Soln - NEB Q4H PRN SHORT OF BREATH/WHEEZING Albuterol Sulfate 1 amp 07/11/17 08:00 07/14/17 15:25 Ventolin 0.083% Nebulizer Soln - NEB 1 amp RQID JULIET Administration Atorvastatin Calcium 20 mg 07/10/17 22:00 07/13/17 21:11 Lipitor - PO 20 mg HS JULIET Administration Bacitracin 1 applic 07/12/17 16:45 07/14/17 09:46 Bacitracin - TP 1 applic DAILY JULIET Administration Clopidogrel Bisulfate 75 mg 07/11/17 10:00 07/14/17 09:45 Plavix - PO 75 mg DAILY JULIET Administration Docusate Sodium 100 mg 07/10/17 20:25 Colace - PO Q8H PRN CONSTIPATION Fluticasone Propionate 1 spray 07/11/17 10:00 07/14/17 09:47 Flonase - NS Not Given DAILY JULIET Gabapentin 600 mg 07/10/17 22:00 07/14/17 17:30 Neurontin - PO 600 mg QID JULIET Administration Lisinopril 20 mg 07/11/17 10:00 07/14/17 09:54 Prinivil PO 20 mg DAILY JULIET Administration Montelukast Sodium 10 mg 07/10/17 22:00 07/13/17 21:11 Singulair - PO 10 mg HS JULIET Administration Nicotine 21 mg 07/11/17 10:00 07/14/17 09:44 Nicoderm Patch - TD 21 mg DAILY [facility] Administration Ondansetron HCl 4 mg 07/10/17 20:25 Zofran Injection IVPUSH Q6H PRN NAUSEA AND/OR VOMITING Oxycodone HCl 5 mg 07/14/17 05:35 07/14/17 14:18 Roxicodone - PO 5 mg Q4H PRN Administration PAIN LEVEL 1 - 3 Pantoprazole Sodium 40 mg 07/11/17 10:00 07/14/17 09:45 Protonix - PO 40 mg DAILY JUL[facility]ET Administration Polyethylene Glycol 17 gm 07/11/17 10:00 07/14/17 09:46 Miralax (For Daily Use) - PO 17 units DAILY [facility] Administration Senna 2 tab 07/10/17 20:25 Senna - PO HS PRN CONSTIPATION Tiotropium [place] 1 puff 07/11/17 10:00 07/14/17 09:45 Spiriva - IH 1 puff DAILY [facility] Administration Verapamil HCl 180 mg 07/11/17 10:00 07/14/17 09:44 Calan Sr - PO 180 mg DAILY JULIET Administration Warfarin Sodium 5 mg 07/12/17 18:00 07/14/17 17:30 Coumadin - PO 5 mg DAILY@1800 JULIET Administration ASSESSMENT/PLAN: 66 y/o F with PMH PAD with LLE fem-pop thrombectomy, pop-tib ant bypass, b/l SFA stents who came to ED with LLE pain. Pt seen by Eddie who performed L fem-pop bypass. POD 5. #PAD -improved post surg -POD 7 -No complaints -full palpable pulses #Subtherapeutic INR -INR 2.0 -Coumadin 5mg -d/c lovenox #CBD dilatation -GI plan to scope if pt is still in hosp on . Otherwise, procedure will be outpt. -MRI/MRCP planned for once kami are removed from leg incision site. # CAD, history of stents -Plavix -Lipitor # COPD Stable -Singulair -Spiriva -Albuterol nebs # HTN -Lisinopril -Verapamil # HLD -Lipitor # Nicotine dependence -nicotine patch #DVT ppx: on Lovenox,coumadin follow INR Likely D/C tomorrow Jeffrey Bolanos MD PGY-1 IM Visit type - Emergency Visit Emergency Visit: No - New Patient This patient is new to me today: No - Critical Care Critical Care patient: No
[2017-07-14] MEDS: ATORVASTATIN CA 20 MG TABLET (FP) PO SCH (22:04)
[2017-07-14] MEDS: MONTELUKAST NA 10 MG TABLET PO SCH (22:04)
[2017-07-15 06:42] LABS: INR 2.21 (0.82-1.09)
[2017-07-15] MEDS: ALBUTEROL SO4 0.083% IH SOL 2.5 MG/3 ML VIAL.NEB. NEB SCH ×2 (07:25→11:20)
--- NOTE | 2017-07-15 07:52 | PN ---
Teaching Attending Note Name of Resident: Jefrfey Bolanos ATTENDING PHYSICIAN STATEMENT I saw and evaluated the patient. I reviewed the resident's note and discussed the case with the resident. I agree with the resident's findings and plan as documented with exceptions below. SUBJECTIVE: patient seen and examined. No new complaints. Leg pain improving. OBJECTIVE: Vital Signs Period Temp Pulse Resp BP Sys/Olguin Pulse Ox Last 24 Hr 97.8 F-98.5 F 65-110 18-20 113-132/55-69 94-94 Intake & Output 07/12/17 07/13/17 07/14/17 07/15/17 23:59 23:59 23:59 23:59 Intake Total 550 360 790 10 Output Total 897 690 6142 200 Balance 50 340 -710 -190 General: sitting in bed in no acute distress Extremities: LLE dressing with kami, pos Dp pulses Home Medication List Medication Instructions Recorded Confirmed Type Gabapentin 600 mg PO QID 02/19/17 07/05/17 History Montelukast Na [Singulair -] 10 mg PO HS 02/19/17 07/06/17 History Verapamil HCl ER [Calan Sr -] 180 mg PO DAILY 02/19/17 07/05/17 History Warfarin Sodium [Coumadin] 3 mg PO 07/05/17 History Warfarin Sodium [Coumadin] 3.5 mg PO 07/05/17 History Active Medications Generic Name Dose Route Start Last Admin Trade Name Freq PRN Reason Stop Dose Admin Acetaminophen 650 mg 07/10/17 20:25 07/14/17 23:17 Tylenol - PO 650 mg Q6H PRN Administration FEVER Albuterol Sulfate 1 amp 07/10/17 20:25 Ventolin 0.083% Nebulizer Soln - NEB Q4H PRN SHORT OF BREATH/WHEEZING Albuterol Sulfate 1 amp 07/11/17 08:00 07/14/17 20:55 Ventolin 0.083% Nebulizer Soln - NEB 1 amp RQID JULIET Administration Atorvastatin Calcium 20 mg 07/10/17 22:00 07/14/17 22:04 Lipitor - PO 20 mg HS JULIET Administration Bacitracin 1 applic 07/12/17 16:45 07/14/17 09:46 Bacitracin - TP 1 applic DAILY JULIET Administration Clopidogrel Bisulfate 75 mg 07/11/17 10:00 07/14/17 09:45 Plavix - PO 75 mg DAILY [facility] Administration Docusate Sodium 100 mg 07/10/17 20:25 Colace - PO Q8H PRN CONSTIPATION Fluticasone Propionate 1 spray 07/11/17 10:00 07/14/17 09:47 Flonase - NS Not Given DAILY [facility] Gabapentin 600 mg 07/10/17 22:00 07/14/17 22:04 Neurontin - PO 600 mg QID JULIET Administration Lisinopril 20 mg 07/11/17 10:00 07/14/17 09:54 Prinivil PO 20 mg DAILY [facility] Administration Montelukast Sodium 10 mg 07/10/17 22:00 07/14/17 22:04 Singulair - PO 10 mg HS [facility] Administration Nicotine 21 mg 07/11/17 10:00 07/14/17 09:44 Nicoderm Patch - TD 21 mg DAILY [facility] Administration Ondansetron HCl 4 mg 07/10/17 20:25 Zofran Injection IVPUSH Q6H PRN NAUSEA AND/OR VOMITING Oxycodone HCl 5 mg 07/14/17 05:35 07/14/17 23:17 Roxicodone - PO 5 mg Q4H PRN Administration PAIN LEVEL 1 - 3 Pantoprazole Sodium 40 mg 07/11/17 10:00 07/14/17 09:45 Protonix - PO 40 mg DAILY [facility] Administration Polyethylene Glycol 17 gm 07/11/17 10:00 07/14/17 09:46 Miralax (For Daily Use) - PO 17 units DAILY [facility] Administration Senna 2 tab 07/10/17 20:25 Senna - PO HS PRN CONSTIPATION Tiotropium [place] 1 puff 07/11/17 10:00 07/14/17 09:45 Spiriva - IH 1 puff DAILY [facility] Administration Verapamil HCl 180 mg 07/11/17 10:00 07/14/17 09:44 Calan Sr - PO 180 mg DAILY [facility] Administration Warfarin Sodium 5 mg 07/12/17 18:00 07/14/17 17:30 Coumadin - PO 5 mg DAILY@1800 JULIET Administration Laboratory Results - last 24 hr 07/14/17 07/14/17 07/14/17 06:30 06:30 06:30 WBC 8.3 RBC 2.85 L Hgb 8.5 L Hct 26.2 L MCV 91.7 MCH 30.0 MCHC 32.7 RDW 19.1 H Plt Count 302 MPV 9.1 Neutrophils % No Result Required. Neutrophils % (Manual) 62.4 D Band Neutrophils % 0.0 Lymphocytes % No Result Required. Lymphocytes % (Manual) 20.2 D Monocytes % (Manual) 11 H D Eosinophils % (Manual) 3.7 D Basophils % (Manual) 0.9 D Myelocytes % (Man) 2 D Promyelocytes % (Man) 0 Blast Cells % (Manual) 0 Nucleated RBC % 0 Metamyelocytes 0 D Platelet Estimate Normal Polychromasia 2+ Anisocytosis 1+ Macrocytosis 1+ Ovalocytes 1+ Acanthocytes (Spur) 1+ PT with INR 22.60 H INR 2.00 H PTT (Actin FS) 40.5 H Sodium 141 Potassium 4.9 Chloride 106 Carbon Dioxide 24 Anion Gap 11 BUN 18 Creatinine 0.7 Creat Clearance w eGFR > 60 Random Glucose 95 Calcium 8.3 L Total Bilirubin 0.3 D AST 18 ALT 31 Alkaline Phosphatase 111 Total Protein 5.8 L Albumin 2.7 L Lipase 86 07/15/17 06:05 WBC RBC Hgb Hct MCV MCH MCHC RDW Plt Count MPV Neutrophils % Neutrophils % (Manual) Band Neutrophils % Lymphocytes % Lymphocytes % (Manual) Monocytes % (Manual) Eosinophils % (Manual) Basophils % (Manual) Myelocytes % (Man) Promyelocytes % (Man) Blast Cells % (Manual) Nucleated RBC % Metamyelocytes Platelet Estimate Polychromasia Anisocytosis Macrocytosis Ovalocytes Acanthocytes (Spur) PT with INR 25.00 H INR 2.21 H PTT (Actin FS) Sodium Potassium Chloride Carbon Dioxide Anion Gap BUN Creatinine Creat Clearance w eGFR Random Glucose Calcium Total Bilirubin AST ALT Alkaline Phosphatase Total Protein Albumin Lipase ASSESSMENT AND PLAN: 66 yof with a history of PAD, LLE bypass, CAD, stent, HTN, hyperlipidemia, COPD who presented to the ED with left leg pain. -PAD with left foot ischemia s/p left femoral and popliteal thrombectomy, popliteal anterior tibial bypass 03/20/17, s/p left femoral popliteal bypass, angioplasty of distal anterior tibial artery, thrombectomy of tibial bypass graft 07/07 -CAD h/o PCI -COPD -HTN -HLD -Prolonged QTc -Nicotine dependence -CBD/pancreatic ductal dilataion Plan INR 2.2, continue coumadin 5 mg daily for now. Cardiology/GI input appreciated. Discussed with Dr Mendosa, high risk to hold anti-coagulation currently given recent limb ischemia, also patient with no active abdominal symptoms, and non concerning chemistry, tolerating diet well. Outpatient EGD/colonoscopy and mRCP once leg surgical clips are removed. Wound care. Continue lipitor. d/c opioids, tylenol prn. PT eval noted, social work input noted. d/c to SNF today with INR tomorrow and coumadin/plavix with monitoring for bleed Plan discussed with patient in detail, all questions answered
[2017-07-15 07:53] VITALS: BP 134/72; PULSE 86; TEMP 98
[2017-07-15] MEDS: NICOTINE 21 MG/24 HOURS TOPICAL PATCH TD SCH (09:29)
[2017-07-15] MEDS: PANTOPRAZOLE 40 MG TABLET (FP) PO SCH (09:29)
[2017-07-15] MEDS: GABAPENTIN 300 MG CAPSULE (FP) PO SCH ×2 (09:30→14:05)
[2017-07-15] MEDS: BACITRACIN 15 GM TUBE TOPICAL OINTMENT TP SCH (09:30)
[2017-07-15] MEDS: CLOPIDOGREL BISULFATE 75 MG TABLET (FP) PO SCH (09:30)
[2017-07-15] MEDS: VERAPAMIL HCL 180 MG E.R. TABLET (FP) PO SCH (09:30)
[2017-07-15] MEDS: LISINOPRIL 20 MG TABLET (FP) PO SCH (09:30)
[2017-07-15] MEDS: TIOTROPIUM BROMIDE 18 MCG CAPSULES IH SCH (09:31)
[2017-07-15] MEDS: POLYETHYLENE GLYCOL 3350 119 GM BTL PO SCH (09:31)
[2017-07-15] MEDS: FLUTICASONE PROP 0.05% 16 GM NASAL SPRAY NS SCH (09:31)
--- NOTE | 2017-07-15 09:37 | PN ---
Progress Note, Physician History of Present Illness: No complaints, EGD/colonoscopy deferred as outpatient. - Current Medication List Current Medications: Active Medications Acetaminophen (Tylenol -) 650 mg PO Q6H PRN PRN Reason: FEVER Last Admin: 07/14/17 23:17 Dose: 650 mg Albuterol Sulfate (Ventolin 0.083% Nebulizer Soln -) 1 amp NEB Q4H PRN PRN Reason: SHORT OF BREATH/WHEEZING Albuterol Sulfate (Ventolin 0.083% Nebulizer Soln -) 1 amp NEB RQID [facility] Last Admin: 07/14/17 20:55 Dose: 1 amp Atorvastatin Calcium (Lipitor -) 20 mg PO HS [facility] Last Admin: 07/14/17 22:04 Dose: 20 mg Bacitracin (Bacitracin -) 1 applic TP DAILY [facility] Last Admin: 07/15/17 09:30 Dose: 1 applic Clopidogrel Bisulfate (Plavix -) 75 mg PO DAILY [facility] Last Admin: 07/15/17 09:30 Dose: 75 mg Docusate Sodium (Colace -) 100 mg PO Q8H PRN PRN Reason: CONSTIPATION Fluticasone Propionate (Flonase -) 1 spray NS DAILY [facility] Last Admin: 07/15/17 09:31 Dose: 1 spray Gabapentin (Neurontin -) 600 mg PO QID [facility] Last Admin: 07/15/17 09:30 Dose: 600 mg Lisinopril (Prinivil) 20 mg PO DAILY [facility] Last Admin: 07/15/17 09:30 Dose: 20 mg Montelukast Sodium (Singulair -) 10 mg PO HS [facility] Last Admin: 07/14/17 22:04 Dose: 10 mg Nicotine (Nicoderm Patch -) 21 mg TD DAILY [facility] Last Admin: 07/15/17 09:29 Dose: 21 mg Ondansetron HCl (Zofran Injection) 4 mg IVPUSH Q6H PRN PRN Reason: NAUSEA AND/OR VOMITING Pantoprazole Sodium (Protonix -) 40 mg PO DAILY [facility] Last Admin: 07/15/17 09:29 Dose: 40 mg Polyethylene Glycol (Miralax (For Daily Use) -) 17 gm PO DAILY [facility] Last Admin: 07/15/17 09:31 Dose: 17 gm Senna (Senna -) 2 tab PO HS PRN PRN Reason: CONSTIPATION Tiotropium [place] (Spiriva -) 1 puff IH DAILY [facility] Last Admin: 07/15/17 09:31 Dose: 1 puff Verapamil HCl (Calan Sr -) 180 mg PO DAILY [facility] Last Admin: 07/15/17 09:30 Dose: 180 mg Warfarin Sodium (Coumadin -) 5 mg PO DAILY@1800 [facility] Last Admin: 07/14/17 17:30 Dose: 5 mg - Objective Vital Signs: Vital Signs Temperature 98.0 F 07/15/17 07:50 Pulse Rate 86 07/15/17 07:50 Respiratory Rate 20 07/15/17 07:50 Blood Pressure 134/72 07/15/17 07:50 O2 Sat by Pulse Oximetry (%) 94 L 07/15/17 07:50 Constitutional: Yes: No Distress, Calm, Thin Neck: Yes: Supple Cardiovascular: Yes: Regular Rate and Rhythm Respiratory: Yes: Regular, CTA Bilaterally Gastrointestinal: Yes: Normal Bowel Sounds, Soft Edema: No Labs: CBC, BMP 07/14/17 06:30 07/14/17 06:30 INR, PTT INR 2.21 (0.82-1.09) H 07/15/17 06:05 PTT Baseline 72.2 sec (.) H 07/07/17 06:00 Problem List - Problems (1) Atherosclerosis of bypass graft of left lower extremity with rest pain Code(s): I70.322 - ATHSCL UNSP TYPE BYPASS OF THE EXTRM W REST PAIN, LEFT LEG (2) Common bile duct dilation Code(s): K83.8 - OTHER SPECIFIED DISEASES OF BILIARY TRACT (3) Dilation of pancreatic duct Code(s): K86.89 - OTHER SPECIFIED DISEASES OF PAN[place]AS (4) CAD (coronary artery disease) Code(s): I25.10 - ATHSCL HEART DISEASE OF [place] CORONARY ARTERY W/O ANG PCTRS Qualifiers: Coronary Disease-Associated Artery/Lesion type: [place] artery [place] vs. transplanted heart: [place] heart Associated angina: without angina Qualified Code(s): I25.10 - Atherosclerotic heart disease of [place] coronary artery without angina pectoris (5) S/P coronary artery stent placement Code(s): Z95.5 - PRESENCE OF CORONARY ANGIOPLASTY IMPLANT AND GRAFT (6) Status post peripheral artery angioplasty with insertion of stent Code(s): Z95.820 - PERIPHERAL VASCULAR ANGIOPLASTY STATUS W IMPLANTS AND GRAFTS (7) COPD (chronic obstructive pulmonary disease) Code(s): J44.9 - CHRONIC OBSTRUCTIVE PULMONARY DISEASE, UNSPECIFIED Qualifiers: COPD type: unspecified COPD Qualified Code(s): J44.9 - Chronic obstructive pulmonary disease, unspecified (8) HTN (hypertension) Code(s): I10 - ESSENTIAL (PRIMARY) HYPERTENSION Qualifiers: Hypertension type: essential hypertension Qualified Code(s): I10 - Essential (primary) hypertension (9) Hyperlipemia, mixed Code(s): E78.2 - MIXED HYPERLIPIDEMIA (10) Tobacco consumption Code(s): Z72.0 - TOBACCO USE Assessment/Plan 1. Peripheral artery disease POD#8 history of fem-pop bypass with thrombosed left leg bypass post left femoral popliteal bypass with PTFE, angioplasty distal anterior tibial artery with therapeutic INR 2. CAD post PCI/stent, angina pectoris, stable 3. Hypertension 4. Hypercholesterolemia 5. COPD 6. Anemia 7. CBD/pancreatic ductal dilatation PLAN: 1. Continue Lipitor 20 qhs 2. Conitinue Lisinopril 20 qd 3. Continue Verapamil SR 180 qd 4. Continue Coumadin per INR 2-3, and continue Plavix 75 qd with caution and close monitoring of CBC 5. Can proceed with EGD and colonoscopy from CV-standpoint once INR acceptable on outpatient basis, MRI, EUS as outpatient 6. PT->SNF
--- NOTE | 2017-07-15 09:54 | PN ---
Progress Note (short form) - Note Progress Note: Pt seen and examined. note from 07/14 Constitutional: Yes: Well Nourished, No Distress, Calm Eyes: Yes: Conjunctiva Clear HENT: Yes: Atraumatic, Normocephalic Neck: Yes: Supple, Trachea Midline Cardiovascular: Yes: Regular Rate and Rhythm Respiratory: Yes: Regular, CTA Bilaterally Gastrointestinal: Yes: Normal Bowel Sounds, Soft Extremities: Yes: reperfused LLE A/P HTN, HLD, CAD s/p stent, COPD, PAD with left Femoral/Popliteal Thrombectomy/ Popliteal Anterior Tibial Bypass (x 2- 02/21 and 03/20/16) Now POD#3 , thrombosed left leg bypass s/p left femoral popliteal bypass with PTFE, angioplasty distal anterior tibial artery CTA reviewed: GI f/u noted Treatment: on AC lupus negative Age appropriate malignancy screening. d/w pt
[2017-07-15] MEDS ORDERED: oxyCODONE HCL 5 MG TABLET PO ONE (11:15)
[2017-07-15] MEDS ORDERED: ACETAMINOPHEN 325 MG TABLET (FP) PO ONE (11:15)
--- NOTE | 2017-07-15 11:25 | PN ---
Progress Note (short form) - Note Progress Note: PULMONARY Still with left leg pain but slightly better. Denies shortness of breath, cough or wheezing. Last Vital Signs Temp Pulse Resp BP Pulse Ox 98.0 F 86 20 134/72 94 L 07/15/17 07:50 07/15/17 07:50 07/15/17 07:50 07/15/17 07:50 07/15/17 07:50 Gen: NAD at rest Heart: RRR Lung: decreased breath sounds at the bases Abd: soft, nontender Ext: +DP CBC, BMP 07/14/17 06:30 07/14/17 06:30 Active Medications Acetaminophen (Tylenol -) 650 mg PO Q6H PRN PRN Reason: FEVER Last Admin: 07/14/17 23:17 Dose: 650 mg Albuterol Sulfate (Ventolin 0.083% Nebulizer Soln -) 1 amp NEB Q4H PRN PRN Reason: SHORT OF BREATH/WHEEZING Albuterol Sulfate (Ventolin 0.083% Nebulizer Soln -) 1 amp NEB RQID [facility] Last Admin: 07/15/17 07:25 Dose: 1 amp Atorvastatin Calcium (Lipitor -) 20 mg PO HS [facility] Last Admin: 07/14/17 22:04 Dose: 20 mg Bacitracin (Bacitracin -) 1 applic TP DAILY [facility] Last Admin: 07/15/17 09:30 Dose: 1 applic Clopidogrel Bisulfate (Plavix -) 75 mg PO DAILY [facility] Last Admin: 07/15/17 09:30 Dose: 75 mg Docusate Sodium (Colace -) 100 mg PO Q8H PRN PRN Reason: CONSTIPATION Fluticasone Propionate (Flonase -) 1 spray NS DAILY [facility] Last Admin: 07/15/17 09:31 Dose: 1 spray Gabapentin (Neurontin -) 600 mg PO QID [facility] Last Admin: 07/15/17 09:30 Dose: 600 mg Lisinopril (Prinivil) 20 mg PO DAILY [facility] Last Admin: 07/15/17 09:30 Dose: 20 mg Montelukast Sodium (Singulair -) 10 mg PO HS [facility] Last Admin: 07/14/17 22:04 Dose: 10 mg Nicotine (Nicoderm Patch -) 21 mg TD DAILY [facility] Last Admin: 07/15/17 09:29 Dose: 21 mg Ondansetron HCl (Zofran Injection) 4 mg IVPUSH Q6H PRN PRN Reason: NAUSEA AND/OR VOMITING Pantoprazole Sodium (Protonix -) 40 mg PO DAILY [facility] Last Admin: 07/15/17 09:29 Dose: 40 mg Polyethylene Glycol (Miralax (For Daily Use) -) 17 gm PO DAILY [facility] Last Admin: 07/15/17 09:31 Dose: 17 gm Senna (Senna -) 2 tab PO HS PRN PRN Reason: CONSTIPATION Tiotropium [place] (Spiriva -) 1 puff IH DAILY [facility] Last Admin: 07/15/17 09:31 Dose: 1 puff Verapamil HCl (Calan Sr -) 180 mg PO DAILY [facility] Last Admin: 07/15/17 09:30 Dose: 180 mg Warfarin Sodium (Coumadin -) 5 mg PO DAILY@1800 [facility] Last Admin: 07/14/17 17:30 Dose: 5 mg A/P PAD/Occluded Left Femoral/Popliteal Arteries s/p Left Femoral Popliteal Bypass CAD COPD HTN Hypercholesterolemia Anemia - pain control - continue anticoagulation - inhaled bronchodilators - O2 to keep spo2 >90% - rehab/PT - d/c planning Problem List - Problems (1) Arterial occlusion, lower extremity Code(s): I70.209 - UNSP ATHSCL [place] ARTERIES OF EXTREMITIES, UNSP EXTREMITY (2) PAD (peripheral artery disease) Code(s): I73.9 - PERIPHERAL VASCULAR DISEASE, UNSPECIFIED (3) COPD (chronic obstructive pulmonary disease) Code(s): J44.9 - CHRONIC OBSTRUCTIVE PULMONARY DISEASE, UNSPECIFIED Qualifiers: COPD type: unspecified COPD Qualified Code(s): J44.9 - Chronic obstructive pulmonary disease, unspecified (4) HTN (hypertension) Code(s): I10 - ESSENTIAL (PRIMARY) HYPERTENSION Qualifiers: Hypertension type: essential hypertension Qualified Code(s): I10 - Essential (primary) hypertension
--- NOTE | 2017-07-15 13:30 | DS ---
Physical Exam: SUBJECTIVE: Patient seen and examined at bedside. No other complaints. Pt is stable, afebrile. OBJECTIVE: Vital Signs Period Temp Pulse Resp BP Sys/Olguin Pulse Ox Last 24 Hr 97.8 F-98.5 F 65-86 18-20 113-134/55-72 94-94 PHYSICAL EXAM GENERAL: The patient is awake, alert, and fully oriented, in no acute distress. HEAD: Normal with no signs of trauma. EYES: sclera anicteric, conjunctiva clear. ENT:oropharynx clear without exudates, moist mucous membranes. NECK: Trachea midline, full range of motion, supple. LUNGS: Breath sounds equal, clear to auscultation bilaterally, no wheezes, no crackles, no accessory muscle use. HEART: Regular rate and rhythm, S1, S2 without murmur, rub or gallop. ABDOMEN: Soft, nontender, nondistended, normoactive bowel sounds, no guarding, no rebound, no hepatosplenomegaly, no masses. EXTREMITIES: 2+ pulses, warm, well-perfused, no edema. Graft on left leg with dressing cdi. Toe malalignment b/l. NEUROLOGICAL: Cranial nerves II through XII grossly intact. Normal speech, gait not observed. PSYCH: Normal mood, normal affect. SKIN: Warm, dry, normal turgor, no rashes or lesions noted. LABS Laboratory Results - last 24 hr 07/15/17 06:05 PT with INR 25.00 H INR 2.21 H HOSPITAL COURSE: Date of Admission:07/06/17 Date of Discharge: 07/15/17 Pt is a 66 y/o F with PMH PAD with LLE fem-pop thrombectomy, pop-tib ant bypass , b/l SFA stents who came to ED with LLE pain. Pt was admitted for evaluation and treatment of PAD with Occluded L fem-pop stent and limb ischemia. Pt has had history of labile INR values. She was given heparin ggt, pain control, and consult was placed to her surgeon. The patient was seen by cardiology for pre-op evaluation. Pt seen by Eddie who performed Left femoral popliteal bypass with PTFE, angioplasty distal anterior tibial artery, thrombectomy of the tibial bypass graft. Prior to the procedure, pt was seen by heme/onc and was transfused FFP for low INR. Coumadin was held for the procedure. Post-op, she wsa transferred to ICU, Coumadin was resumed, and pt was given pain control. Regular medications were resumed, as well. She had continued workup of hypercoaguability by heme. She also had age-appropriate cancer screening. CTA for evaluation of vascular flow and runoff incidentally detected a CBD dilatation. GI was consulted and made a plan to evaluate further once pt was stable. Pt continued to recover and was transferred to Tele floor. INR was resistant to increase into therapeutic range and necessitated multiple Coumadin dosage increases and Lovenox in the interim. At 5mg HS, INR became therapeutic and lovenox was discontinued. Pt is now therapeutic. She has PT eval recommending SNF. GI has plan to do endoscopy/colonoscopy as out pt and MRI/MRCP once kami in leg wound are removed. Pt was given instructions to follow up with her primary care, especially regarding her INR. She is afebrile and stable for d/c to SNF. Minutes to complete discharge: 30 Discharge Summary Reason For Visit: OCCLUSION OF ARTERY OF LOWER EXTREMITY Current Active Problems Anemia (Acute) Atherosclerosis of bypass graft of left lower extremity with rest pain (Acute) Common bile duct dilation (Acute) Dilation of pancreatic duct (Acute) Condition: Improved - Instructions Diet, Activity, Other Instructions: Please make sure you take all your prescription medications as directed and follow up with your primary care doctor as well as your specialists. You will need to follow up your INR level tomorrow. Maintain INR between 2-3. You are on Coumadin 5mg daily. Watch for bleeding from nose, gums, urine, stool and suture site. Follow up with vascular surgeon Dr Morgan on Wednesday. Follow up with your primary care doctor in next week. Follow up with gastroentrologist Dr Mendosa for your dilated ducts. Keep suture site open to air. If you want to put something you can put dry gauze. If you develop pain in leg, skin discoloration please contact to doctor or come to hospital. If your symptoms recur or if you develop new symptoms, please return to the emergency department immediately. you were also found with dilatation of biliary duct but normal liver blood test and were seen by health information technologist Dr Mendosa. you are advised outpatient follow up with him. You will need endoscopy and later MrI once your kami are removed. Referrals: Gonzalez Mendosa MD [Staff Physician] - 1 Week Abrahan Morgan MD [Staff Physician] - 07/19/17 Disposition: CARE HOME FACILITY - Home Medications Comprehensive Discharge Medication List: Ambulatory Orders Gabapentin 600 mg PO QID 02/19/17 Montelukast Na [Singulair -] 10 mg PO HS 02/19/17 Verapamil HCl ER [Calan Sr -] 180 mg PO DAILY 02/19/17 Lisinopril [Prinivil] 20 mg PO DAILY #30 tablet 02/28/17 Pantoprazole Sodium [Protonix -] 40 mg PO DAILY #30 tablet.ec 02/28/17 Tiotropium [place] [Spiriva] 1 puff IH DAILY #1 inh 02/28/17 Atorvastatin Ca [Lipitor] 20 mg PO HS tablet 06/05/17 Clopidogrel Bisulfate [Plavix -] 75 mg PO DAILY tablet 06/05/17 Docusate Sodium [Colace -] 100 mg PO Q8H PRN capsule 06/05/17 Nicotine Patch [Nicoderm Patch -] 21 mg TD DAILY patch 06/05/17 Sennosides [Senna -] 2 tab PO HS PRN tablet 06/05/17 Acetaminophen [Tylenol .Regular Strength -] 650 mg PO Q6H PRN tablet 07/15/17 Bacitracin - [Bacitracin Topical Ointment -] 1 applic TP DAILY tube 07/15/17 Fluticasone Prop 0.05% Nasal [Flonase -] 1 spray NS DAILY spray 07/15/17 Polyethylene Glycol 3350 [Miralax 119 gm Btl -] 17 gm PO DAILY PRN #0 bottle 12/23 Warfarin Na [Coumadin -] 5 mg PO DAILY@1800 tablet 07/15/17 This patient is new to me today: No Emergency Visit: No Critical Care patient: No - Discharge Referral Referred to [facility] No
--- NOTE | 2017-07-19 13:46 | PATH ---
Surgical Pathology Report Patient Name: CANDY FOSTER [facility]. Rec. #: [id number] /Age/Gender: 1950 (Age: 66) / F Account: [id number] Location: 4 W TELEMETRY U Taken: 07/15/2017 Received: 07/15/2017 Reported: 07/19/2017 Physicians: Kimberlee Mckeon M.D. 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 INTERPRETATION: Negative for JAK2 ([id number]) Mutation. See [facility] report ([id number]) for additional details. Paroxysmal Nocturnal Hemoglobinuria Assay by Flow performed and reported by [facility], [place], [place] ([id number]) shows the following: INTERPRETATION: No phenotypic evidence of Paroxysmal Nocturnal Hemoglobulinuria (PNH) See [facility] report ([id number]) for additional details. Electronically Signed Teodoro Montelongo M.D.
== END 2017-07-15 14:32 | DRG 253 ==
LOC: JER 21:55 → JERBED 07-06 00:26 → J7W 07-06 02:48 → JSAMEDAYSX 07-07 16:27 → JICU 07-07 20:48 → J4W 07-10 21:01
PROVIDERS: ADMIT Internal Medicine; ATTEND Hospitalist
PROC: 047Q3ZZ Dilation of Left Anterior Tibial Artery, Percutaneous Approach (ICD-10-PCS; 2017-07-07)
PROC: 30233L1 Transfusion of Nonautologous Fresh Plasma into Peripheral Vein, Percutaneous Approach (ICD-10-PCS; 2017-07-07)
PROC: 30233K1 Transfusion of Nonautologous Frozen Plasma into Peripheral Vein, Percutaneous Approach (ICD-10-PCS; 2017-07-07)
PROC: 30233N1 Transfusion of Nonautologous Red Blood Cells into Peripheral Vein, Percutaneous Approach (ICD-10-PCS; 2017-07-07)
PROC: 04WY0JZ Revision of Synthetic Substitute in Lower Artery, Open Approach (ICD-10-PCS; principal; 2017-07-07 11:00)
PROC: 04CQ0ZZ Extirpation of Matter from Left Anterior Tibial Artery, Open Approach (ICD-10-PCS; 2017-07-07 11:00)
PROC: 041 Lower Arteries, Bypass (ICD-10-PCS; 2017-07-07 11:00)
DX: T82.868A Thrombosis due to vascular prosthetic devices, implants and grafts, initial encounter (principal); D62 Acute posthemorrhagic anemia; Y83.9 Surgical procedure, unspecified as the cause of abnormal reaction of the patient, or of later complication, without mention of misadventure at the time of the procedure; J44.9 Chronic obstructive pulmonary disease, unspecified; I44.7 Left bundle-branch block, unspecified; I73.9 Peripheral vascular disease, unspecified; I99.8 Other disorder of circulatory system; E78.5 Hyperlipidemia, unspecified; Z98.61 Coronary angioplasty status; K21.9 Gastro-esophageal reflux disease without esophagitis; K59.00 Constipation, unspecified; K86.89 Other specified diseases of pancreas; I25.119 Atherosclerotic heart disease of native coronary artery with unspecified angina pectoris; R79.1 Abnormal coagulation profile; Z87.891 Personal history of nicotine dependence
CPT/HCPCS: 36415; 71045-TC-FY; 75635-TC; 76000-TC-FY; 80053; 81003; 81015; 81240; 81241; 81291; 82550; 82784; 83690; 83735; 84100; 84155; 84165; 84484; 85025; 85027; 85597; 85610; 85730; 86146; 86147; 86334; 86850; 86900; 86901; 86922; 88300-TC; 88304-TC; 93005; 93010; 93926-TC; 94010; 94640; 94760; 94761; 97116-GP; 97161-GP; 99283-25; J1644; P9017; P9038; P9058